=== PATIENT | female | born 1945 | race Caucasian/White ===

== ENCOUNTER → 2016-12-31 | Outpatient (CLI) | payer MEDICARE, OTHER ==
[~2016-12-31] MED LIST: [UNRECOGNIZED DRUG - REMARK]
--- NOTE | 2016-12-31 11:13 | Diagnostic Imaging Report ---
EXAMINATION: Two views of the left knee. INDICATION: Left knee pain. FINDINGS: There is no fracture, dislocation, or radiopaque foreign body. No suprapatellar effusion is seen. No significant arthritic changes are identified. IMPRESSION: Unremarkable exam. Dictated by: Dictated on workstation # [id number]
== END ==
LOC: RAD 10:17
PROVIDERS: ATTEND Family Medicine
DX: M25.562 Pain in left knee (principal)
CPT/HCPCS: 73562

== ENCOUNTER 2017-10-31 14:52 | Emergency (ER) | payer MEDICARE, OTHER ==
[~2017-10-31] VITALS: Ht 162.6 cm; Wt 63.5 kg
[2017-10-31] MEDS ORDERED: B/P MEDS (15:06)
[2017-10-31] MEDS ORDERED: KETOROLAC 60 MG/2 ML VIAL IM ONE (15:15)
[2017-10-31] MEDS ORDERED: ORPHENADRINE 60 MG/2 ML (NORFLEX) AMP IM ONE (15:15)
--- NOTE | 2017-10-31 15:15 | ED Hip Pain/Injury ---
General Chief Complaint: Back Problems Stated Complaint: LEFT REAR HIP PAIN History of Present Illness Date Seen by Provider: Oct 31, 2017 Time Seen by Provider: 15:10 Initial Comments Patient is a 72-year-old female who presented to the emergency room with complaints of pain to her left hip and buttocks area just prior to arrival. She reports sitting in a chair while repairing other chairs when the pain started. She denies any injury. She is able to ambulate without difficulty and has full range of motion. Timing/Duration: just prior to arrival Severity: mild Location: hip (L) Method of Injury: unknown Modifying Factors: Improves With Rest Associated Symptoms: denies symptoms Allergies and Home Medications Allergies Coded Allergies: codeine (Verified Allergy, Unknown, 10/31/17) Patient Home Medication List Home Medication List Reviewed: Yes Constitutional: no symptoms reported, see HPI EENTM: see HPI, no symptoms reported Respiratory: no symptoms reported, see HPI Cardiovascular: no symptoms reported, see HPI Gastrointestinal: no symptoms reported, see HPI Genitourinary: no symptoms reported, see HPI Musculoskeletal: see HPI, joint pain (Left hip) Skin: no symptoms reported, see HPI Psychiatric/Neurological: No Symptoms Reported, See HPI Past Chsqcnb-Ssefwx-Trkukx Hx Patient Social History Alcohol Use: Denies Use Recreational Drug Use: No Smoking Status: Never a Smoker Recent Foreign Travel: No Contact w/Someone Who Travel: No Immunizations Up To Date Date of Pneumonia Vaccine: Jul 14, 2012 Past Medical History Surgeries: Yes Hysterectomy Cardiac: Yes Hypertension Physical Exam Vital Signs Vital Signs - First Documented 10/31/17 14:56 Temp 98.1 Pulse 85 Resp 18 B/P (MAP) 139/79 (99) Capillary Refill : General Appearance: No Apparent Distress, WD/WN HEENT: PERRL/EOMI, Normal ENT Inspection, Pharynx Normal Neck: Full Range of Motion, Normal Inspection, Non Tender, Supple Cardiovascular: Regular Rate, Rhythm, No Edema, No Gallop, No JVD, No Murmur, Normal Peripheral Pulses Respiratory: Chest Non Tender, Lungs Clear, Normal Breath Sounds, No Accessory Muscle Use, No Respiratory Distress Gastrointestinal: Normal Bowel Sounds, No Organomegaly, No Pulsatile Mass, Non Tender, Soft Back: Normal Inspection, No CVA Tenderness, No Vertebral Tenderness Extremity: Normal Capillary Refill, Normal Inspection, Normal Range of Motion, Other (Pain to the left hip and buttocks area. ) Neurologic/Psychiatric: Alert, Oriented x3, No Motor/Sensory Deficits, Normal Mood/Affect Skin: Normal Color, Warm/Dry Lymphatic: No Adenopathy Progress/Results/Core Measures My Orders Orders - LUPE GUO APRN Ketorolac Injection (Toradol Injection) (10/31/17 15:15) Orphenadrine Injection (Norflex Injectio (10/31/17 15:15) Hip, Left, 2 Views (10/31/17 15:09) Medications Given in ED Current Medications Medications Dose Ordered Sig/Magi Route Start Time Stop Time Status Last Admin Dose Admin Ketorolac Tromethamine 60 mg ONCE ONCE IM 10/31/17 15:15 10/31/17 15:16 DC 10/31/17 15:21 60 MG Orphenadrine Citrate 60 mg ONCE ONCE IM 10/31/17 15:15 10/31/17 15:16 DC 10/31/17 15:21 60 MG Vital Signs/I&O 10/31/17 14:56 Temp 98.1 Pulse 85 Resp 18 B/P (MAP) 139/79 (99) Progress Note : Progress Note 1609: The patient reports significant improvement of pain at this time. Patient agrees with plan of discharge and understands to return back to emergency room if pain returns or for any other concerns as needed. Diagonstic Imaging: Xray Plain Films/CT/US/NM/MRI: hip Comments NAME: MARY BENNETT [facility] REC#: [id number] PT STATUS: REG ER : 1945 PHYSICIAN: LUPE GUO APRN ADMIT DATE: 10/31/17/ER Signed Date of Exam:10/31/17 HIP, LEFT, 2 VIEWS INDICATION: Pain in the left hip. TIME OF EXAM: 03:53 p.m. FINDINGS: Two views of the left hip demonstrate normal femoroacetabular alignment. The joint space is maintained. Femoral head and neck are intact. Rami are intact. No fractures are seen. IMPRESSION: No acute bony abnormality is detected. Dictated by: Dictated on workstation # [id number] Dict: 10/31/17 1538 Trans: 10/31/17 1544 [id number] Interpreted by: SONG VILLEGAS MD Electronically signed by: SONG VILLEGAS MD 10/31/17 1544 Departure Impression Primary Impression: Muscle spasm Disposition: ADMITTED INPATIENT (UA and a sedimentation rate 0. Nothing else health) Condition: Stable/Unchanged Departure-Patient Inst. Decision time for Depature: 16:14 Referrals: JUANA GOETZ DO (PCP/Family) Primary Care Physician Patient Instructions: Muscle Spasms (DC) Add. Discharge Instructions: Follow-up with Dr. Goetz within 1 week for recheck, return back to the emergency room if pain returns or worsens. All discharge instructions reviewed with patient and/or family. Voiced understanding. LUPE GUO GLASSWORKER Oct 31, 2017 15:15
--- NOTE | 2017-10-31 15:42 | Diagnostic Imaging Report ---
INDICATION: Pain in the left hip. TIME OF EXAM: 03:53 p.m. FINDINGS: Two views of the left hip demonstrate normal femoroacetabular alignment. The joint space is maintained. Femoral head and neck are intact. Rami are intact. No fractures are seen. IMPRESSION: No acute bony abnormality is detected. Dictated by: Dictated on workstation # [id number]
[2017-10-31 16:19] VITALS: BP 139/79
== END 2017-10-31 16:19 | disposition other institution (70) ==
LOC: EDUNIT# 14:52 → ER 14:54
DX: M62.838 Other muscle spasm (principal); I10 Essential (primary) hypertension; Z90.710 Acquired absence of both cervix and uterus; Z88.5 Allergy status to narcotic agent
CPT/HCPCS: 73502; 96372

== ENCOUNTER → 2019-05-05 | Outpatient (CLI) | payer MEDICARE, OTHER ==
[~2019-05-05] MED LIST changes: +B/P MEDS
--- NOTE | 2019-05-05 11:08 | Diagnostic Imaging Report ---
PROCEDURE: CT abdomen and pelvis without contrast. TECHNIQUE: Multiple contiguous axial images were obtained through the abdomen and pelvis without the use of intravenous contrast. Auto Exposure Controls were utilized during the CT exam to meet ALARA standards for radiation dose reduction. INDICATION: Hematuria. COMPARISON; No prior studies are available for comparison. FINDINGS: The lung bases are clear apart from tiny subpleural nodule in right lower lobe. No discrete liver mass is identified. The gallbladder is unremarkable. No biliary ductal dilatation is seen. The pancreas and spleen are unremarkable. No adrenal mass is identified. Tiny densities are identified in both kidneys suggestive of nonobstructing calculi. No definite ureteral calculi or hydronephrosis is identified. There is a calcific density in the midline of the bladder base measuring 7 mm x 4 mm consistent with a bladder calculus. The bladder is somewhat low in position in the pelvis suggestive of some pelvic relaxation. Aorta is calcified but non-aneurysmal. No central, retroperitoneal or mesenteric lymphadenopathy is seen. The small and large bowel loops are normal caliber. There is no free fluid or fluid collection identified. No pelvic lymphadenopathy is detected. Bony structures appear nonacute. IMPRESSION: 1. Tiny bilateral nonobstructing nephrolithiasis. In addition, there appears to be a bladder calculus. Pelvic relaxation is noted. No other significant abnormality is seen. Dictated by: Dictated on workstation # [id number]
== END ==
LOC: RAD 10:35
PROVIDERS: ATTEND Family Medicine
DX: N20.0 Calculus of kidney (principal); N81.89 Other female genital prolapse
CPT/HCPCS: 74176

== ENCOUNTER → 2022-11-01 | Outpatient (CLI) | payer MEDICARE | LOC: LAB 10:57 | PROVIDERS: ATTEND Family Medicine | DX: N39.0 Urinary tract infection, site not specified (principal) | CPT/HCPCS: 87077; 87088; 87186 ==

== ENCOUNTER 2023-04-20 14:39 | Inpatient (IN) | payer MEDICARE ==
[~2023-04-20] VITALS: Ht 162 cm; Wt 75.6 kg
--- NOTE | 2023-04-20 15:24 | ED General ---
General Chief Complaint: Fever-Adult/Adol Stated Complaint: VOMITING/SHAKY Source of Information: Patient, Family Exam Limitations: No Limitations History of Present Illness Date Seen by Provider: Apr 20, 2023 Time Seen by Provider: 15:09 Initial Comments Patient is a 77-year-old female who presents to the emergency department today with a chief complaint of weakness, feeling shaky, vomiting, incontinence of stool. Symptom onset today. She went [facility] the [facility] [place] in [place] and started feeling ill. They stopped at the [facility] in [place] and she was diagnosed with a urinary tract infection, given a prescription of Bactrim and Zofran. Continued to feel worse on her way to [place]. Presents with a fever of 104.8. She is tachycardic in the 120s. Normal blood pressure 136/70. Oxygen saturations are 94% on 2 L. She was 91% at presentation. She denies runny nose, sore throat earache. She was COVID tested prior to arrival and it was negative. She denies shortness of breath or productive cough. She was nauseated earlier vomited twice. No abdominal pain. She denies current dysuria but states that she did have a little last week. No wounds or rashes. She tells me she takes medications for hypertension. She speaks to me with her eyes closed, is very fatigued appearing. Timing/Duration: 4-6 Hours Severity: Severe Associated Systoms: Malaise, Nausea/Vomiting, Weakness Allergies and Home Medications Allergies Coded Allergies: codeine (Verified Allergy, Unknown, 10/31/17) Patient Home Medication List Home Medication List Reviewed: Yes Ascorbic Acid/Ascorbate Sodium (Vitamin C 500 mg Tablet Chew) 500 Mg Tab.chew, 500 MG PO DAILY, (Reported) Entered as Reported by: ANGIE PROCTOR on 04/21/231151 Last Action: Reviewed Aspirin (Aspirin EC) 500 Mg Tablet.dr, 500 MG PO Q8H PRN for PAIN-MILD (1-4), (Reported) Entered as Reported by: ANGIE PROCTOR on 04/21/231151 Last Action: Reviewed D-Mannose (Azo D-Mannose) 500 Mg Capsule, 500 MG PO DAILY, (Reported) Entered as Reported by: ANGIE PROCTOR on 04/21/231151 Last Action: Reviewed Losartan Potassium (Losartan Potassium) 50 Mg Tablet, 50 MG PO HS, (Reported) Entered as Reported by: ASHWINI NOLEN on 04/20/23 1739 Last Action: Reviewed Nystatin (Nystatin) 100,000 Unit/Ml Oral.susp, 2 ML PO BID, (Reported) Entered as Reported by: ANGIE PROCTOR on 04/21/23 1152 Last Action: Reviewed Discontinued Medications [B/P Meds] , (Reported) Discontinued Reason: No Longer Taking Entered as Reported by: ROS DOUGLAS on 10/31/17 1506 Last Action: Discontinued [no medicine reported] , (Reported) Discontinued Reason: No Longer Taking Entered as Reported by: CHELLE BRANNON on 05/18/12 1339 Last Action: Discontinued Review of Systems Review of Systems Constitutional: see HPI, malaise, weakness EENTM: no symptoms reported Respiratory: no symptoms reported Cardiovascular: no symptoms reported Gastrointestinal: nausea, vomiting Genitourinary: no symptoms reported Musculoskeletal: no symptoms reported Skin: no symptoms reported All Other Systems Reviewed Negative Unless Noted: Yes Past Vhedawg-Prhbtb-Widetb Hx Patient Social History Tobacco Use?: No Use of E-Cig and/or Vaping dev: No Substance use?: No Alcohol Use?: No Pt feels they are or have been: No Past Medical History Surgeries: Yes Hysterectomy Cardiac: Yes Hypertension Physical Exam-Suspected Sepsis Physical Exam Vital Signs Vital Signs - First Documented 04/20/23 14:50 Temp 40.3 Pulse 134 Resp 24 B/P (MAP) 136/70 (92) Pulse Ox 91 O2 Delivery Room Air O2 Flow Rate 2.00 Capillary Refill : Height, Weight, BMI Height: 5'4.00" Weight: 140lbs. oz. 63.045112sm; BMI Method:Stated General Appearance: No Apparent Distress, WD/WN Eyes: Right Eye Other (significant subconjuctival hemorrhage right eye); Bilateral Eye Normal Inspection, Bilateral Eye PERRL, Bilateral Eye EOMI HEENT: Other (very dry oral mucosa) Neck: Normal Inspection Respiratory: Lungs Clear, Normal Breath Sounds, No Accessory Muscle Use, No Respiratory Distress Cardiovascular: Normal Peripheral Pulses, Tachycardia (120's), Other (2+ bilateral radial pulses and DP pulses) Gastrointestinal: Non Tender, Soft, Abnormal Bowel Sounds (hypoactive) Extremity: Normal Inspection, Normal Range of Motion, No Pedal Edema Neurologic/Psychiatric: Alert, Oriented x3, No Motor/Sensory Deficits, Depressed Affect Skin: warm/dry, pallor Focused Exam Lactate Level 04/21/23 05:16: Lactic Acid Level 3.38*H 04/21/23 07:18: Lactic Acid Level 3.04*H 04/21/23 09:50: Lactic Acid Level 2.51*H Time of Focused Exam: 16:10 Lactic Acid Level Progress/Results/Core Measures Suspected Sepsis Recent Fever Within 48 Hours: Yes Infection Criteria Present: Suspected New Infection New/Unexplained Altered Menta: Yes Within 3hrs of presentation: Admin 30ml/kg IBW due to BMI>30, Admin ABX, Blood cultures prior to ABX's, Focus exam, Lactate level SIRS Temperature: Pulse: Respiratory Rate: Laboratory Tests 04/20/23 15:07: White Blood Count 5.6 Blood Pressure / Mean: 04/21/23 05:16: Lactic Acid Level 3.38*H 04/21/23 07:18: Lactic Acid Level 3.04*H 04/21/23 09:50: Lactic Acid Level 2.51*H Laboratory Tests 04/20/23 15:07: Creatinine 1.00, INR Comment 1.2, Platelet Count 213, Total Bilirubin 1.0 04/21/23 04:02: Creatinine 1.01 Results/Orders Lab Results Laboratory Tests Test 04/20/23 15:07 04/20/23 15:55 04/20/23 17:00 04/20/23 19:00 Range/Units White Blood Count 5.6 4.3-11.0 10^3/uL Red Blood Count 4.65 3.80-5.11 10^6/uL Hemoglobin 13.2 11.5-16.0 g/dL Hematocrit 41 35-52 % Mean Corpuscular Volume 88 80-99 fL Mean Corpuscular Hemoglobin 28 25-34 pg Mean Corpuscular Hemoglobin Concent 32 32-36 g/dL Red Cell Distribution Width 13.1 10.0-14.5 % Platelet Count 213 130-400 10^3/uL Mean Platelet Volume 10.1 9.0-12.2 fL Immature Granulocyte % (Auto) 3 % Neutrophils (%) (Auto) 92 H 42-75 % Lymphocytes (%) (Auto) 5 L 12-44 % Monocytes (%) (Auto) 1 0-12 % Eosinophils (%) (Auto) 0 0-10 % Basophils (%) (Auto) 0 0-10 % Neutrophils # (Auto) 5.2 1.8-7.8 10^3/uL Lymphocytes # (Auto) 0.3 L 1.0-4.0 10^3/uL Monocytes # (Auto) 0.0 0.0-1.0 10^3/uL Eosinophils # (Auto) 0.0 0.0-0.3 10^3/uL Basophils # (Auto) 0.0 0.0-0.1 10^3/uL Immature Granulocyte # (Auto) 0.2 H 0.0-0.1 10^3/uL Neutrophils % (Manual) 76 % Lymphocytes % (Manual) 5 % Monocytes % (Manual) 1 % Eosinophils % (Manual) 0 % Basophils % (Manual) 0 % Band Neutrophils 18 % Blood Morphology Comment NORMAL Prothrombin Time 15.5 H 12.2-14.7 SEC INR Comment 1.2 0.8-1.4 Activated Partial Thromboplast Time 30 24-35 SEC Sodium Level 141 135-145 MMOL/L Potassium Level 3.1 L 3.6-5.0 MMOL/L Chloride Level 106 98-107 MMOL/L Carbon Dioxide Level 18 L 21-32 MMOL/L Anion Gap 17 H 5-14 MMOL/L Blood Urea Nitrogen 13 7-18 MG/DL Creatinine 1.00 0.60-1.30 MG/DL Estimat Glomerular Filtration Rate 57 BUN/Creatinine Ratio 13 Glucose Level 161 H 70-105 MG/DL Lactic Acid Level 5.98 *H 3.69 *H 5.29 *H 0.50-2.00 MMOL/L Calcium Level 9.0 8.5-10.1 MG/DL Corrected Calcium 9.2 8.5-10.1 MG/DL Total Bilirubin 1.0 0.1-1.0 MG/DL Aspartate Amino Transf (AST/SGOT) 29 5-34 U/L Alanine Aminotransferase (ALT/SGPT) 23 0-55 U/L Alkaline Phosphatase 54 40-136 U/L Total Protein 6.7 6.4-8.2 GM/DL Albumin 3.8 3.2-4.5 GM/DL Urine Color YELLOW Urine Clarity CLEAR Urine pH 5.0 5-9 Urine Specific [place] 1.015 L 1.016-1.022 Urine Protein 1+ H NEGATIVE Urine Glucose (UA) NEGATIVE NEGATIVE Urine Ketones NEGATIVE NEGATIVE Urine Nitrite NEGATIVE NEGATIVE Urine Bilirubin NEGATIVE NEGATIVE Urine Urobilinogen 0.2 < = 1.0 MG/DL Urine Leukocyte Esterase 1+ H NEGATIVE Urine RBC (Auto) 3+ H NEGATIVE Urine RBC 5-10 H /HPF Urine WBC 10-25 H /HPF Urine Squamous Epithelial Cells NONE /HPF Urine Crystals NONE /LPF Urine Bacteria FEW H /HPF Urine Casts NONE /LPF Urine Mucus NEGATIVE /LPF Urine Culture Indicated CULTURE PENDING Test 04/20/23 21:08 04/20/23 22:58 04/21/23 01:10 04/21/23 04:02 Range/Units Lactic Acid Level 3.37 *H 3.08 *H 2.68 *H 0.50-2.00 MMOL/L Troponin I 8.663 *H 6.482 *H <0.028 NG/ML Sodium Level 142 135-145 MMOL/L Potassium Level 2.8 L 3.6-5.0 MMOL/L Chloride Level 112 H 98-107 MMOL/L Carbon Dioxide Level 15 L 21-32 MMOL/L Anion Gap 15 H 5-14 MMOL/L Blood Urea Nitrogen 13 7-18 MG/DL Creatinine 1.01 0.60-1.30 MG/DL Estimat Glomerular Filtration Rate 57 BUN/Creatinine Ratio 13 Glucose Level 195 H 70-105 MG/DL Calcium Level 7.6 L 8.5-10.1 MG/DL Test 04/21/23 05:16 04/21/23 05:38 04/21/23 07:18 04/21/23 09:50 Range/Units Lactic Acid Level 3.38 *H 3.04 *H 2.51 *H 0.50-2.00 MMOL/L Magnesium Level 1.4 L 1.6-2.4 MG/DL Test 04/21/23 16:56 04/21/23 21:02 Range/Units Glucometer 229 H 164 H 70-110 MG/DL Micro Results Microbiology 04/21/23 C. difficile GDH Antigen & Toxins - Final, Resulted 04/21/23 Stool Culture, Resulted Pending 04/20/23 MRSA Screen - Final, Complete 04/20/23 Blood Culture - Preliminary, Resulted 04/20/23 Urine Culture - Preliminary, Resulted Probable Klebsiella/Enterobact 04/20/23 Blood Culture - Preliminary, Resulted Gram Negative Michel My Orders Orders - CHELLE BROWN MD Cbc And Automated Diff (04/20/23 15:16) Comprehensive Metabolic Panel (04/20/23 15:16) Blood Culture (04/20/23 15:16) Sputum Culture (04/20/23 15:16) Urinalysis (04/20/23 15:16) Urine Culture (04/20/23 15:16) Protime With Inr (04/20/23 15:16) Partial Thromboplastin Time (04/20/23 15:16) Chest 1 View, Ap/Pa Only (04/20/23 15:16) Ed Iv/Invasive Line Start (04/20/23 15:16) Ed Iv/Invasive Line Start (04/20/23 15:16) Vital Signs Adult Sepsis Patie Q15M (04/20/23 15:16) O2 (04/20/23 15:16) Remove Rings In Anticipation O (04/20/23 15:16) Lactic Acid Analyzer (04/20/23 15:16) Ekg Tracing (04/20/23 15:16) Ns Iv 1000 Ml (Ns Iv 1000 Ml) (04/20/23 15:30) Acetaminophen Tablet (Acetaminophen Ta (04/20/23 15:30) Ekg Tracing (04/20/23 15:17) Ondansetron Injection (Ondansetron Inj (04/20/23 15:30) Manual Differential (04/20/23 15:07) Ns Iv 1000 Ml (Ns Iv 1000 Ml) (04/20/23 15:49) Ns (Ivpb) 250 Ml (Sodium Chloride 0.9% 2 (04/20/23 15:49) Piperacillin/Tazobactam (Piperacillin/Ta (04/20/23 16:30) Ekg Tracing (04/20/23 16:35) Medications Given in ED Vital Signs/I&O 04/21/23 04/21/23 04/21/23 04/21/23 18:00 19:00 19:00 19:15 Pulse 98 105 105 105 Resp 8 37 B/P (MAP) 127/84 (98) 123/93 (107) 137/82 (100) Pulse Ox 96 95 96 O2 Delivery Nasal Cannula Nasal Cannula Nasal Cannula O2 Flow Rate 4.00 4.00 4.00 04/21/23 04/21/23 04/21/23 04/21/23 19:30 19:43 19:45 20:00 Temp 36.4 Pulse 103 101 105 Resp B/P (MAP) 114/81 (93) 116/82 (91) 110/80 (92) Pulse Ox 96 97 95 O2 Delivery Nasal Cannula Nasal Cannula Nasal Cannula O2 Flow Rate 4.00 4.00 4.00 04/21/23 04/21/23 04/21/23 04/21/23 20:00 20:15 20:30 20:45 Pulse 102 106 105 Resp 22 B/P (MAP) 120/76 (89) 127/77 (94) 136/60 (78) Pulse Ox 94 96 94 95 O2 Delivery Nasal Cannula Nasal Cannula Nasal Cannula Nasal Cannula O2 Flow Rate 4.00 4.00 4.00 4.00 04/21/23 04/21/23 04/21/23 04/21/23 21:00 21:15 21:30 21:45 Pulse 105 98 101 98 Resp 22 16 15 B/P (MAP) 106/89 (92) 113/72 (91) 114/73 (88) 107/77 (93) Pulse Ox 96 95 98 94 O2 Delivery Nasal Cannula Nasal Cannula Nasal Cannula Nasal Cannula O2 Flow Rate 4.00 4.00 4.00 4.00 04/21/23 04/21/23 04/21/23 04/21/23 22:00 22:15 22:30 22:45 Pulse 97 103 98 102 Resp 05 07 B/P (MAP) 108/81 (87) 116/59 (70) 116/66 (88) 104/79 (88) Pulse Ox 94 94 O2 Delivery Nasal Cannula Nasal Cannula Nasal Cannula Nasal Cannula O2 Flow Rate 4.00 4.00 4.00 4.00 04/21/23 04/21/23 04/21/23 04/21/23 23:00 23:15 23:30 23:45 Pulse 98 93 98 101 Resp 25 20 28 11 B/P (MAP) 98/74 (89) 113/72 (96) 86/76 (81) 117/77 (85) Pulse Ox 97 97 95 94 O2 Delivery Nasal Cannula Nasal Cannula Nasal Cannula Nasal Cannula O2 Flow Rate 4.00 4.00 4.00 4.00 04/22/23 04/22/23 04/22/23 04/22/23 00:00 00:00 01:00 01:00 Pulse 98 103 103 Resp 24 28 B/P (MAP) 118/76 (91) 136/81 (99) Pulse Ox 96 97 95 O2 Delivery Nasal Cannula Nasal Cannula Nasal Cannula O2 Flow Rate 4.00 4.00 4.00 04/22/23 04/22/23 04/22/23 04/22/23 02:00 03:00 03:52 04:08 Temp 36.0 Pulse 102 109 Resp 25 B/P (MAP) 119/74 (89) 132/81 (98) Pulse Ox 95 93 93 O2 Delivery Nasal Cannula Nasal Cannula Nasal Cannula O2 Flow Rate 4.00 4.00 4.00 Capillary Refill : Progress Note : Time: 16:07 Progress Note Patient seen and evaluated by me. Evaluation today includes physical exam, "septic work-up" to include CBC, Chem-12, coag profile, blood cultures and uric acid, urinalysis, urine culture, single view chest x-ray. Pertinent physical exam findings well-developed well-nourished female in mild distress due to nausea and fatigue. She is significantly febrile with tachycardia heart rate 100, blood pressure is 127/84. She was hypoxic on room air at 88%. Satting 98% on 4 L. Heart is regular, lungs are clear. Abdomen is soft and nontender. She has no focal neurologic deficits. She is quite pale and her oral mucosa is very dry. Differential diagnosis includes sepsis, urinary tract infection, pneumonia, gastroenteritis Labs independently reviewed and interpreted by me. Her CBC shows a total white blood cell count of 5.6 with normal hemoglobin and hematocrit and platelets. She has 92% segmented neutrophils. Her Chem-12 shows low potassium at 3.1, low CO2 of 18. Normal renal function. Blood glucose slightly elevated at 161. Coag profile is normal. Lactic acid is significantly elevated at 5.98. Urinalysis shows evidence of infection with 1+ leukocyte Estrace, 3+ blood, 10- 25 white blood cells and few bacteria. Single view chest x-ray is unremarkable for any acute pathology. Patient is treated in the emergency department with a 30 mill per kilogram IV fluid bolus normal saline. She is given a gram of Tylenol for her temperature. She is given 4 mg of Zofran for her nausea. Patient continued to deny pain and after fluid bolus was reevaluated and feeling much better. She had a little color in her cheeks and was much more conversant. Discussed the case with Dr. Adhikari on for the hospitalist service. Will admit the patient to the ICU with severe sepsis. IV antibiotics, Zosyn 4.5 g ordered. Cultures pending. Case also discussed with eICU. ECG Initial ECG Impression Date: Apr 20, 2023 Initial ECG Impression Time: 15:18 Initial ECG Rate: 127 Initial ECG Rhythm: S.Tach Initial ECG Intervals VT 127 QRS 139 QTc [address] depression inferiorly Diagnostic Imaging Diagonstic Imaging: Xray Plain Films/CT/US/NM/MRI: chest Comments [facility] [place] NAME: MARY BENNETT [facility] REC#: [id number] PT STATUS: REG ER : 1945 PHYSICIAN: CHELLE BROWN MD ADMIT DATE: 04/20/23/ER Signed Date of Exam:04/20/23 CHEST 1 VIEW, AP/PA ONLY EXAMINATION: Chest radiograph, portable AP view. DATE: 04/20/2023 3:42 PM. INDICATION: 77-year-old female, shaking, weakness, and dizziness. COMPARISON: None. FINDINGS: Heart size and mediastinal contours are unremarkable. Lung volumes are low with associated central bronchovascular crowding. There is no identified pneumothorax. There is no large pleural effusion. There is no identified focal airspace consolidation. IMPRESSION: Low lung volumes without identified acute cardiopulmonary abnormality. Dictated by: Dictated on workstation # [id number] Dict: 04/20/23 1544 Trans: 04/20/23 1558 [id number] Interpreted by: KD PAN MD Electronically signed by: KD PAN MD 04/20/23 1558 Departure Communication (Admissions) Time/Spoke to Admitting Phy: 16:[address] Adhikari - admit ICU; Impression Primary Impression: Severe sepsis Disposition: ADMITTED INPATIENT Condition: Critical Admissions Decision to Admit Reason: Admit from ER (General) Decision to Admit/Date: Apr 20, 2023 Time/Decision to Admit Time: 16:08 Departure-Patient Inst. Referrals: JUANA GOETZ DO (PCP/Family) Primary Care Physician Copy Copies To 1: JUANA GOETZ KATHRYN M MD Apr 20, 2023 15:24
[2023-04-20] MEDS ORDERED: NS IV 1000 ML 1,000 ML IV SCH (15:30)
[2023-04-20] MEDS ORDERED: ACETAMINOPHEN 500 MG TABLET PO ONE (15:30)
[2023-04-20] MEDS ORDERED: ONDANSETRON INJECTION 4 MG/2 ML (SDV) IVP ONE (15:30)
[2023-04-20 15:33] LABS: INR 1.2 (0.8-1.4); PROTHROMBIN TIME PATIENT 15.5 SEC (12.2-14.7)
[2023-04-20 15:35] LABS: ALBUMIN 3.8 GM/DL (3.2-4.5); POTASSIUM 3.1 MMOL/L (3.6-5.0)
[2023-04-20 15:37] LABS: BASOPHILS % (AUTO) 0 % (0-10); EOSINOPHILS % (AUTO) 0 % (0-10); HEMATOCRIT 41 % (35-52); HEMOGLOBIN 13.2 g/dL (11.5-16.0); LYMPHOCYTES # (AUTO) 0.3 10^3/uL (1.0-4.0); LYMPHOCYTES % (AUTO) 5 % (12-44); MEAN CORPUSCULAR HEMOGLOBIN 28 pg (25-34); MEAN CORPUSCULAR HGB CONC 32 g/dL (32-36); MEAN CORPUSCULAR VOLUME 88 fL (80-99); MEAN PLATELET VOLUME 10.1 fL (9.0-12.2); MONOCYTES % (AUTO) 1 % (0-12); NEUTROPHILS # (AUTO) 5.2 10^3/uL (1.8-7.8); NEUTROPHILS % (AUTO) 92 % (42-75); PLATELET COUNT 213 10^3/uL (130-400); TOTAL PROTEIN 6.7 GM/DL (6.4-8.2); WHITE BLOOD COUNT 5.6 10^3/uL (4.3-11.0)
[2023-04-20] MEDS ORDERED: NS (IVPB) 250 ML 250 ML IV STA (15:49)
[2023-04-20] MEDS ORDERED: NS IV 1000 ML 1,000 ML IV STA (15:49)
--- NOTE | 2023-04-20 15:58 | Diagnostic Imaging Report ---
EXAMINATION: Chest radiograph, portable AP view. DATE: 04/20/2023 3:42 PM. INDICATION: 77-year-old female, shaking, weakness, and dizziness. COMPARISON: None. FINDINGS: Heart size and mediastinal contours are unremarkable. Lung volumes are low with associated central bronchovascular crowding. There is no identified pneumothorax. There is no large pleural effusion. There is no identified focal airspace consolidation. IMPRESSION: Low lung volumes without identified acute cardiopulmonary abnormality. Dictated by: Dictated on workstation # [id number]
[2023-04-20 16:08] LABS: BAND NEUTROPHILS 18 %; BASOPHILS % (MANUAL) 0 %; EOSINOPHILS % (MANUAL) 0 %; LYMPHOCYTES % (MANUAL) 5 %; MONOCYTES % (MANUAL) 1 %; NEUTROPHILS % (MANUAL) 76 %; RBC MORPH NORMAL
[2023-04-20 16:13] LABS: BILIRUBIN,URINE NEGATIVE (NEGATIVE); CLARITY,URINE CLEAR; COLOR,URINE YELLOW; GLUCOSE, URINE (UA) NEGATIVE (NEGATIVE); KETONES,URINE NEGATIVE (NEGATIVE); LEUKOCYTE ESTERASE ,URINE 1+ (NEGATIVE); NITRITE,URINE NEGATIVE (NEGATIVE); PROTEIN,URINE 1+ (NEGATIVE)
[2023-04-20 16:14] LABS: BACTERIA,URINE FEW /HPF
[2023-04-20] MEDS ORDERED: PIPERACILLIN/Tazobactam 4.5 GM in NS (IVPB) 100 ML 100 ML IV ONE (16:30)
--- NOTE | 2023-04-20 17:34 | Tele-ICU Consult ---
History of Present Illness History of Present Illness Date Seen by Provider: Apr 20, 2023 Time Seen by Provider: 17:28 History of Present Illness eICU Critical Care Consult 77yo F came to ED with cc of weakness, vomiting, diarrhea, In ED temp 104.8, now 98 , HR 120's, BP 75/52, now 67/46 Recent UTI-taking Bactrim, Zofran, Covid serology negative Lab in ED LA 5.98, WBC 5.6 with left shift, Hb 12.2, , potassium 3.1, HCO3 17, AG 13, LFT's normal, UA shows 10-25 WBC, started on IV Zosyn, Recevied 2.2 l IVF Has no flank pain, no MEYERS, chest pain, SOB, no abd pain Has 18G IV in hand CXR shows low lung volumes but no acute process PMH HTN Allergies and Home Medications Allergies Coded Allergies: codeine (Verified Allergy, Unknown, 10/31/17) Past Medical/Social/Family Hx Patient Social History Tobacco Use?: No Use of E-Cig and/or Vaping dev: No Substance use?: No Alcohol Use?: No Pt stated abuse/neglect: No Immunizations Up To Date Date of Pneumonia Vaccine: Jul 14, 2012 Current Status Advance Directives: No Communicates: Verbally Primary Language: Malian Preferred Spoken Language: Malian Review of Systems Constitutional: see HPI EENTM: see HPI Respiratory: see HPI Cardiovascular: see HPI Gastrointestinal: see HPI Genitourinary: see HPI Musculoskeletal: see HPI Skin: see HPI Psychiatric/Neurological: See HPI Focused Exam Lactate Level 04/20/23 15:07: Lactic Acid Level 5.98*H 04/20/23 17:00: Height, Weight, BMI Height: 5'4.00" Weight: 140lbs. oz. 63.027163uq; 28.00 BMI Method:Stated Time of Focused Exam: 16:10 Lactic Acid Level Laboratory Tests Test 04/20/23 15:07 04/20/23 17:00 Lactic Acid Level 5.98 MMOL/L (0.50-2.00) *H Exam Exam Patient acknowledged, consented, and participated in this virtual visit which wa s conducted using real time audio/video Vital Signs Date Time Temp Pulse Resp B/P (MAP) Pulse Ox O2 Delivery O2 Flow Rate FiO2 10/8/23 14:50 40.3 134 24 136/70 (92) 97 Room Air 2.00 04/20/23 14:50 91 Room Air 2.00 Height & Weight Height: 5'4.00" Weight: 140lbs. oz. 63.121202ic; 28.00 BMI Method:Stated General Appearance: No Apparent Distress, WD/WN HEENT: Other (very dry oral mucosa) Neck: Normal Inspection Respiratory: Lungs Clear, Normal Breath Sounds, No Accessory Muscle Use, No Respiratory Distress Cardiovascular: Regular Rate, Rhythm, Normal Peripheral Pulses, Tachycardia (120's), Other (2+ bilateral radial pulses and DP pulses) Capillary Refill: Less Than 3 Seconds Gastrointestinal: normal bowel sounds, non tender, other (no flank pain, no pain in RUQ or over bladder) Extremity: Normal Inspection, Normal Range of Motion, No Pedal Edema Neurologic/Psychiatric: Alert, Oriented x3, No Motor/Sensory Deficits, Depressed Affect Results Lab Laboratory Tests 04/20/23 15:07 Assessment/Plan Assessment/Plan Sepsis source most likely urine with WBC 10-25 in urine, perhaps pyelonephritis, though no flank pain BP too low to send for CT Abd/pelvis, will give bolus of LR and order CT abd/pelvis Continue for now on IV Zosyn Critical Care: Critically Ill Patient Time spent with patient (mins): 35 KEYA ANN MD Apr 20, 2023 17:34
[2023-04-20] MEDS ORDERED: LOSA50TA63 PO (17:39)
[2023-04-20] MEDS ORDERED: LACTATED RINGERS 1,000 ML 1,000 ML IV ONE (17:58)
[2023-04-20] MEDS ORDERED: LACTATED RINGERS 1,000 ML 1,000 ML IV SCH (18:00)
--- NOTE | 2023-04-20 18:35 | Tele-ICU Progress Note ---
Subjective Date Seen by a Provider: Apr 20, 2023 Time Seen by a Provider: 18:33 Subjective/Events-last exam BP still low after 1000 IV bolus, has peripheral line, will start IV levo up to 5 and if have to go higher will need either PICC or central line Sepsis Event Evaluation Height, Weight, BMI Height: 5'4.00" Weight: 140lbs. oz. 63.505557re; 28.80 BMI Method:Stated Focused Exam Lactate Level 04/20/23 15:07: Lactic Acid Level 5.98*H 04/20/23 17:00: Lactic Acid Level 3.69*H Time of Focused Exam: 16:10 Lactic Acid Level Laboratory Tests Test 04/20/23 15:07 04/20/23 17:00 Lactic Acid Level 5.98 MMOL/L (0.50-2.00) *H 3.69 MMOL/L (0.50-2.00) *H Exam Exam Patient acknowledged, consented, and participated in this virtual visit which was conducted using real time audio/video Vital Signs Date Time Temp Pulse Resp B/P (MAP) Pulse Ox O2 Delivery O2 Flow Rate FiO2 04/20/23 18:00 106 19 75/52 (60) 94 Room Air 04/20/23 18:00 106 04/20/23 14:50 40.3 134 24 136/70 (92) 97 Room Air 2.00 04/20/23 14:50 91 Room Air 2.00 Height & Weight Height: 5'4.00" Weight: 140lbs. oz. 63.762162hf; 28.80 BMI Method:Stated General Appearance: No Apparent Distress, WD/WN HEENT: Other (very dry oral mucosa) Neck: Normal Inspection Respiratory: Lungs Clear, Normal Breath Sounds, No Accessory Muscle Use, No Respiratory Distress Cardiovascular: Regular Rate, Rhythm, Normal Peripheral Pulses, Tachycardia (120's), Other (2+ bilateral radial pulses and DP pulses) Capillary Refill: Less Than 3 Seconds Gastrointestinal: normal bowel sounds, non tender, other (no flank pain, no pain in RUQ or over bladder) Extremity: Normal Inspection, Normal Range of Motion, No Pedal Edema Neurologic/Psychiatric: Alert, Oriented x3, No Motor/Sensory Deficits, Depressed Affect Results Lab Laboratory Tests 04/20/23 15:07 Assessment/Plan Assessment/Plan BP still low after 1000 IV bolus, has good peripheral line, will start IV levo up to 5 if BP does not improve and if have to go higher will need either PICC or central line Critical Care: Critically Ill Patient KEYA ANN MD Apr 20, 2023 18:35
[2023-04-20] MEDS ORDERED: NOREPINEPHRINE 8 MG/250 ML 250 ML IV ONE (18:42)
[2023-04-20] MEDS: NOREPINEPHRINE 8 MG/250 ML 250 ML IV SCH (18:47)
[2023-04-20 19:01] VITALS: BP 62/40
[2023-04-20] MEDS ORDERED: RT-Ipratropium/Albuterol NEB 3 ML VIAL INH PRN (19:30)
[2023-04-20] MEDS: VASOPRESSIN INJECTION 20 UNIT in NS (IVPB) 100 ML 100 ML IV SCH (20:30)
[2023-04-20] MEDS ORDERED: ACETAMINOPHEN 650 MG SUPPOSITORY PR PRN (20:30)
[2023-04-20] MEDS ORDERED: ACETAMINOPHEN 325 MG TABLET PO PRN (20:30)
[2023-04-20] MEDS ORDERED: ONDANSETRON INJECTION 4 MG/2 ML (SDV) IV PRN (20:30)
[2023-04-20] MEDS ORDERED: EPINEPHrine 1 MG INJECTION 4 MG in NS (IVPB) 250 ML 248 ML IV SCH (20:30)
[2023-04-20] MEDS: NS IV 1000 ML 1,000 ML IV SCH (20:54)
[2023-04-20] MEDS ORDERED: NS (IVPB) 250 ML 250 ML IV ONE (21:15)
--- NOTE | 2023-04-20 21:24 | Tele-ICU Progress Note ---
Progress Note Bedside nurse stated pt with chest pain and stable EKG. I ordered a troponin level. Hypotension, I ordered 250 cc saline bolus Focused Exam Sepsis Stage: Septic Shock Lactate Level 04/20/23 17:00: Lactic Acid Level 3.69*H 04/20/23 19:00: Lactic Acid Level 5.29*H 04/20/23 21:08: Height, Weight, BMI Height: 5'4.00" Weight: 140lbs. oz. 63.503965mc; 28.80 BMI Method:Stated Time of Focused Exam: 16:10 Lactic Acid Level Laboratory Tests Test 04/20/23 19:00 04/20/23 21:08 Lactic Acid Level 5.29 MMOL/L (0.50-2.00) *H Vital Signs Vitals Signs Source: Tympanic, Heart Rate: 105, Respiratory Rate: 20, BP: 91/60, Pulse Oximetry: 96, Weight: 75.6 Vitals - Labs Vital Signs - I&O Vital Signs Date Time Temp Pulse Resp B/P (MAP) Pulse Ox O2 Delivery O2 Flow Rate FiO2 04/20/23 19:40 105 91/60 04/20/23 19:01 86 95 04/20/23 18:47 84 62/40 04/20/23 18:00 106 19 75/52 (60) 94 Room Air 04/20/23 18:00 96 Nasal Cannula 2.00 04/20/23 18:00 106 04/20/23 17:18 38.5 99 20 122/78 96 Room Air 04/20/23 14:50 40.3 134 24 136/70 (92) 97 Room Air 2.00 04/20/23 14:50 91 Room Air 2.00 Labs Laboratory Tests 04/20/23 15:07: White Blood Count 5.6, Red Blood Count 4.65, Hemoglobin 13.2, Hematocrit 41, Mean Corpuscular Volume 88, Mean Corpuscular Hemoglobin 28, Mean Corpuscular Hemoglobin Concent 32, Red Cell Distribution Width 13.1, Platelet Count 213, Mean Platelet Volume 10.1, Immature Granulocyte % (Auto) 3, Neutrophils (%) (Auto) 92H, Lymphocytes (%) (Auto) 5L, Monocytes (%) (Auto) 1, Eosinophils (%) (Auto) 0, Basophils (%) (Auto) 0, Neutrophils # (Auto) 5.2, Lymphocytes # (Auto) 0.3L, Monocytes # (Auto) 0.0, Eosinophils # (Auto) 0.0, Basophils # (Auto) 0.0, Immature Granulocyte # (Auto) 0.2H, Neutrophils % (Manual) 76, Lymphocytes % (Manual) 5, Monocytes % (Manual) 1, Eosinophils % (Manual) 0, Basophils % (Manual) 0, Band Neutrophils 18, Blood Morphology Comment NORMAL, Prothrombin Time 15.5H, INR Comment 1.2, Activated Partial Thromboplast Time 30, Sodium Level 141, Potassium Level 3.1L, Chloride Level 106, Carbon Dioxide Level 18L, Anion Gap 17H, Blood Urea Nitrogen 13, Creatinine 1.00, Estimat Glomerular Filtration Rate 57, BUN/Creatinine Ratio 13, Glucose Level 161H, Lactic Acid Level 5.98*H, Calcium Level 9.0, Corrected Calcium 9.2, Total Bilirubin 1.0, Aspartate Amino Transf (AST/SGOT) 29, Alanine Aminotransferase (ALT/SGPT) 23, Alkaline Phosphatase 54, Total Protein 6.7, Albumin 3.8 04/20/23 15:55: Urine Color YELLOW, Urine Clarity CLEAR, Urine pH 5.0, Urine Specific [place] 1.015L, Urine Protein 1+H, Urine Glucose (UA) NEGATIVE, Urine Ketones NEGATIVE, Urine Nitrite NEGATIVE, Urine Bilirubin NEGATIVE, Urine Urobilinogen 0.2, Urine Leukocyte Esterase 1+H, Urine RBC (Auto) 3+H, Urine RBC 5-10H, Urine WBC 10-25H, Urine Squamous Epithelial Cells NONE, Urine Crystals NONE, Urine Bacteria FEWH, Urine Casts NONE, Urine Mucus NEGATIVE, Urine Culture Indicated CULTURE PENDING 04/20/23 17:00: Lactic Acid Level 3.69*H 04/20/23 19:00: Lactic Acid Level 5.29*H 04/20/23 21:08: KARMA REYES MD Apr 20, 2023 21:24
[2023-04-20] MEDS ORDERED: PIPERACILLIN/Tazobactam 4.5 GM in NS (IVPB) 100 ML 100 ML IV SCH (23:00)
[2023-04-20] MEDS: ASPIRIN enteric coated 81MG TABLET PO SCH (23:31)
[2023-04-20] MEDS: CALCIUM CARBONATE 500 MG CHEW TABLET PO PRN (23:31)
[2023-04-20] MEDS: ENOXAPARIN 80 MG/0.8 ML SYRINGE SC SCH (23:32)
[2023-04-21] MEDS: NS IV 1000 ML 1,000 ML IV SCH ×4 (04:27→20:47)
[2023-04-21 04:37] LABS: CALCIUM 7.6 MG/DL (8.5-10.1); CREATININE SERUM 1.01 MG/DL (0.60-1.30); POTASSIUM 2.8 MMOL/L (3.6-5.0)
[2023-04-21] MEDS ORDERED: NS IV 500 ML 500 ML IV PRN (07:00)
[2023-04-21] MEDS: VASOPRESSIN INJECTION 20 UNIT in NS (IVPB) 100 ML 100 ML IV SCH ×2 (07:40→18:45)
[2023-04-21] MEDS: NOREPINEPHRINE 8 MG/250 ML 250 ML IV SCH (07:53)
[2023-04-21] MEDS: ASPIRIN enteric coated 81MG TABLET PO SCH (08:36)
[2023-04-21] MEDS: MAGNESIUM 1 GM/100 ML IVPB 100 ML IV SCH ×6 (08:37→16:03)
[2023-04-21] MEDS: POTASSIUM CL 10MEQ/50ML IVPB 50 ML IV SCH ×8 (08:37→18:07)
[2023-04-21] MEDS: cefTRIAXone IV/IM 1,000 MG in NS (IVPB) 50 ML 50 ML IV SCH (08:46)
--- NOTE | 2023-04-21 10:03 | Consultation-Cardiology ---
HPI-Cardiology Cardiology Consultation: Date of Consultation 04/21/23 Time Seen by a Provider: 09:45 Date of Admission 04-20-23 Attending Physician Dion Be DO Admitting Physician Admitting Physician: Bunny Adhikari MD Attending Physician: Keshia Meehan MD Consulting Physician Teresa Mcdowell MD HPI: Chief Complaint: NSTEMI Ms. Bennett is a 77 yr old female admitted to ICU 6 from the ED. She reports she was at a rodeo with her and on the way home from [place] she started to have chills and right lower quad pain. She reports she started to have chills so they stopped at [facility] in [facility]. She reports she was Rx abx and a pain pill which they did not sweet pickle maker. She reports on the way back to [place] she continued to feel worse and was trembling. She reports she then went to the ED here and was found to have a temp of 104 degrees. Her BP was noted to be low requiring pressor support. She reports she developed chest heaviness over night; describing it as a feeling that she could not get a deep breath in. She denies any chest pain. No c/o palpitations. No LE swelling. She reports her SOB is better at this time. She reports this morning she sat up in bed and felt dizzy and weak which improved once she was laid back. She reports she generally feels unwell. Review of Systems-Cardiology Review of Systems Constitutional: As described under HPI Eyes: No vision change Ears/Nose/Throat: No epistaxis, No recent hearing loss Respiratory: As described under HPI Cardiovascular: As described under HPI Gastrointestinal: No constipation, No diarrhea, No nausea; vomiting Genitourinary: No dysuria, No hematuria Musculoskeletal: no symptoms reported Skin: No rash on exposed areas, No ulcerations on exposed areas Psychiatric/Neurological: No anxiety, No depression, No seizure, No focal weakness, No syncope Hematologic: No bleeding abnormalities All Other Systems Reviewed Negative Unless Noted: Yes BPI-Mxmrat-Ephegh Hx Patient Social History Alcohol Use?: No Pt feels they are or have been: No Immunizations Up To Date Date of Pneumonia Vaccine: Jul 14, 2012 Past Medical History PMH As described under Assessment. Family Medical History Family Medical History: No reported family h/o CAD Allergies and Home Medications Allergies Coded Allergies: codeine (Verified Allergy, Unknown, 10/31/17) Patient Home Medication List Ascorbic Acid/Ascorbate Sodium (Vitamin C 500 mg Tablet Chew) 500 Mg Tab.chew, 500 MG PO DAILY, (Reported) Entered as Reported by: ANGIE PROCTOR on 04/21/231151 Last Action: Reviewed Aspirin (Aspirin EC) 500 Mg Tablet.dr, 500 MG PO Q8H PRN for PAIN-MILD (1-4), (Reported) Entered as Reported by: ANGIE PROCTOR on 04/21/231151 Last Action: Reviewed D-Mannose (Azo D-Mannose) 500 Mg Capsule, 500 MG PO DAILY, (Reported) Entered as Reported by: ANGIE PROCTOR on 04/21/231151 Last Action: Reviewed Losartan Potassium (Losartan Potassium) 50 Mg Tablet, 50 MG PO HS, (Reported) Entered as Reported by: ASHWINI NOLEN on 04/20/23 1739 Last Action: Reviewed Nystatin (Nystatin) 100,000 Unit/Ml Oral.susp, 2 ML PO BID, (Reported) Entered as Reported by: ANGIE PROCTOR on 04/21/231151 Last Action: Reviewed Discontinued Medications [B/P Meds] , (Reported) Discontinued Reason: No Longer Taking Entered as Reported by: ROS DOUGLAS on 10/31/17 1506 Last Action: Discontinued [no medicine reported] , (Reported) Discontinued Reason: No Longer Taking Entered as Reported by: CHELLE BRANNON on 05/18/12 1339 Last Action: Discontinued Physical Exam-Cardiology Physical Exam Vital Signs/I&O 04/21/23 04/21/23 04/21/23 04/21/23 22:45 23:00 23:15 23:30 Pulse 102 98 93 98 Resp 25 20 28 B/P (MAP) 104/79 (88) 98/74 (89) 113/72 (96) 86/76 (81) Pulse Ox 97 97 95 O2 Delivery Nasal Cannula Nasal Cannula Nasal Cannula Nasal Cannula O2 Flow Rate 4.00 4.00 4.00 4.00 04/21/23 04/22/23 04/22/23 04/22/23 23:45 00:00 00:00 01:00 Pulse 101 98 103 Resp 11 24 B/P (MAP) 117/77 (85) 118/76 (91) Pulse Ox 94 96 97 O2 Delivery Nasal Cannula Nasal Cannula Nasal Cannula O2 Flow Rate 4.00 4.00 4.00 04/22/23 04/22/23 04/22/23 04/22/23 01:00 02:00 03:00 03:52 Temp 36.0 Pulse 103 102 109 Resp 28 25 B/P (MAP) 136/81 (99) 119/74 (89) 132/81 (98) Pulse Ox 95 95 93 O2 Delivery Nasal Cannula Nasal Cannula Nasal Cannula O2 Flow Rate 4.00 4.00 4.00 04/22/23 04/22/23 04/22/23 04/22/23 04:00 04:08 05:00 06:00 Pulse 96 98 100 Resp 29 31 B/P (MAP) 121/74 (90) 118/73 (88) 124/70 (88) Pulse Ox 96 93 98 96 O2 Delivery Nasal Cannula Nasal Cannula Nasal Cannula Nasal Cannula O2 Flow Rate 4.00 4.00 4.00 4.00 04/22/23 04/22/23 04/22/23 04/22/23 07:00 07:15 08:00 09:00 Pulse 95 98 103 101 Resp 27 B/P (MAP) 123/67 (85) 136/56 (82) 125/82 (96) Pulse Ox 98 98 94 O2 Delivery Nasal Cannula Nasal Cannula Nasal Cannula O2 Flow Rate 4.00 4.00 4.00 04/22/23 04/22/23 09:24 10:00 Pulse 91 90 Resp 18 B/P (MAP) 124/83 113/71 (85) Pulse Ox 95 O2 Delivery Nasal Cannula O2 Flow Rate 4.00 04/22/23 00:00 Intake Total 2550 ml Output Total 750 ml Balance 1800 ml Capillary Refill : Less Than 3 Seconds Constitutional: AAO x 3, well-developed, well-nourished HEENT: PERRL, hearing is well preserved, oral hygience is good Neck: No carotid bruit; carotid pulses are 2 + bilaterally Respiratory: No accessory muscle use, No respiratory distress; chest expansion is symmetric, chest is bilaterally symmetric, lungs clear to auscultation Cardiovascular: No JVD; tachycardia, S1 and S2 Gastrointestinal: No tender; soft, round; No guarding; audible bowel sounds Extremities: no lower extremity edema bilateral Neurologic/Psychiatric: other (moves all extremities) Skin: warm/dry, pallor; No rash on exposed areas, No ulcerations on exposed areas Data Review Labs Laboratory Tests 04/21/23 15:07: 04/21/23 16:56: Glucometer 229H 04/21/23 21:02: Glucometer 164H 04/22/23 04:45: White Blood Count 39.7*H, Red Blood Count 3.97, Hemoglobin 11.7, Hematocrit 35, Mean Corpuscular Volume 88, Mean Corpuscular Hemoglobin 30, Mean Corpuscular Hemoglobin Concent 33, Red Cell Distribution Width 13.8, Platelet Count 174, Mean Platelet Volume 11.3, Immature Granulocyte % (Auto) 11, Neutrophils (%) (Auto) 71, Lymphocytes (%) (Auto) 3L, Monocytes (%) (Auto) 4, Eosinophils (%) (Auto) 11H, Basophils (%) (Auto) 0, Neutrophils # (Auto) 28.1H, Lymphocytes # (Auto) 1.2, Monocytes # (Auto) 1.6H, Eosinophils # (Auto) 4.5H, Basophils # (Auto) 0.2H, Immature Granulocyte # (Auto) 4.2H, Neutrophils % (Manual) 85, Lymphocytes % (Manual) 3, Monocytes % (Manual) 1, Band Neutrophils 11, Blood Morphology Comment NORMAL, Sodium Level 138, Potassium Level 4.1, Chloride Level 112H, Carbon Dioxide Level 17L, Anion Gap 9, Blood Urea Nitrogen 14, Creatinine 0.75, Estimat Glomerular Filtration Rate 81, BUN/Creatinine Ratio 19, Glucose Level 149H, Calcium Level 7.9L, Magnesium Level 2.9H 04/22/23 06:52: White Blood Count 39.5*H, Red Blood Count 3.93, Hemoglobin 11.4L, Hematocrit 34L , Mean Corpuscular Volume 87, Mean Corpuscular Hemoglobin 29, Mean Corpuscular Hemoglobin Concent 33, Red Cell Distribution Width 14.2, Platelet Count 174, Mean Platelet Volume 10.6, Immature Granulocyte % (Auto) 9, Neutrophils (%) (Auto) 85H, Lymphocytes (%) (Auto) 2L, Monocytes (%) (Auto) 4, Eosinophils (%) (Auto) 0, Basophils (%) (Auto) 0, Neutrophils # (Auto) 33.6H, Lymphocytes # (Auto) 0.9L, Monocytes # (Auto) 1.6H, Eosinophils # (Auto) 0.0, Basophils # (Auto) 0.0, Immature Granulocyte # (Auto) 3.3H Microbiology 04/21/23 C. difficile GDH Antigen & Toxins - Final, Resulted 04/21/23 Stool Culture, Resulted Pending 04/20/23 MRSA Screen - Final, Complete 04/20/23 Blood Culture - Preliminary, Resulted 04/20/23 Urine Culture - Preliminary, Resulted Probable Klebsiella/Enterobact Radiology NAME: MARY BENNETT [facility] REC#: [id number] PT STATUS: REG ER : 1945 PHYSICIAN: CHELLE BROWN MD ADMIT DATE: 04/20/23/ER Signed Date of Exam:04/20/23 CHEST 1 VIEW, AP/PA ONLY EXAMINATION: Chest radiograph, portable AP view. DATE: 04/20/2023 3:42 PM. INDICATION: 77-year-old female, shaking, weakness, and dizziness. COMPARISON: None. FINDINGS: Heart size and mediastinal contours are unremarkable. Lung volumes are low with associated central bronchovascular crowding. There is no identified pneumothorax. There is no large pleural effusion. There is no identified focal airspace consolidation. IMPRESSION: Low lung volumes without identified acute cardiopulmonary abnormality. Dictated by: Dictated on workstation # [id number] Dict: 04/20/23 1544 Trans: 04/20/23 1558 [id number] Interpreted by: KD PAN MD Electronically signed by: KD PAN MD 04/20/23 1558 ECG Impression ECG Comment LBBB A/P-Cardiology Assessment/Admission Diagnosis NSTEMI vs Type 2 FL secondary to sepsis and hypotension UTI with sepsis - management per medical services Hypotension - requiring pressor support - likely d/t sepsis H/O hypertension Discussion and Recomendations NSTEMI vs Type 2 FL secondary to sepsis and hypotension - echocardiogram UTI with sepsis - management per medical/eICU services Electrolyte abnormalities - replace Monitor lab Further recs will be based on her hospital course SIXTOBLANCAHER Umair HA Apr 21, 2023 10:03
--- NOTE | 2023-04-21 10:48 | Diagnostic Imaging Report ---
INDICATION: PICC line placement. TECHNIQUE: Single view chest at 9:51 AM. CORRELATION STUDY: 04/20/2023. FINDINGS: A left-sided central line has been placed with the tip over the cavoatrial junction. The heart size and mediastinum remain enlarged and prominent. The vasculature is mildly prominent. New opacity in the right lung base is likely a combination of effusion along with infiltrate. There is also a trace left pleural effusion. IMPRESSION: 1. Left-sided central line has been placed with tip at the cavoatrial junction. 2. New opacity in the right lung base, likely a combination of effusion along with consolidation and/or edema. A small left pleural effusion is also present. Dictated by: Dictated on workstation # [id number]
--- NOTE | 2023-04-21 11:24 | Tele-ICU Progress Note ---
Subjective Date Seen by a Provider: Apr 21, 2023 Time Seen by a Provider: 11:23 Subjective/Events-last exam (Tele-ICU Physician , Progress Note ) Service provided via interactive audio and video telecommunications [facility] s tanika to a patient admitted to ICU bed in [facility], [place]. Patient is seen today due to persistent need of ICU care Available chart/ vitals / labs / Images reviewed Video assessment done using teleICU camera, rest of exam as per RN She is a 77-year-old female apparently was in her usual state of health until about a day ago when she was at a rodeo and with her and coming back from that place meanwhile she developed right lower quadrant pain and having chills. She stopped at a urgent care center in [place] where she was prescribed pain pills and antibiotics but they did not fruit or nut picker. On the way back to [place] apparently her symptoms gotten worse with her shivering chills and arrived at via [facility] emergency room. She is found to have a temperature of 104 degrees and low blood pressure. Laboratory data suggestive of urinary tract infection and lactic acidosis suggestive of severe sepsis hence she is admitted for further evaluation and management. She is treated with IV antibiotics, IV fluids and Levophed. This a.m. her blood pressure is improving however still on 0.1 mcg of Levophed. ACVC is inserted today and post procedure chest x-ray [place] wed right lower lobe pneumonia with possible parapneumonic effusion. Impression 1. Severe sepsis with hypotension probably due to urinary tract infection and a pneumonia 2. Rule out any intra-abdominal process 3. Elevated troponin probably secondary to sepsis. 4. Electrolyte abnormality Recommendations 1. Continue hydration 2. Broad-spectrum antibiotics 3. We will get a CT of the abdomen and pelvis 4. Elevated troponin evaluation per cardiology service 5. Correct electrolyte abnormalities 6. DVT prophylaxis. Coordination of care with bedside consultants and primary care physician. I am remotely monitoring this patient from Tele icu station in [place]. I am unable to do the bedside exam, and history/physical and pertinent information is taken from other notes in the computer and bedside staff. Case reviewed with ECHO VASCULAR TECH and in MDR. Certain portions of this document may have been dictated utilizing voice recognition technology such as [employer] (Way[employer]). Inherent to this technology, typographical and grammatical errors may exist. As much as I am diligent to identify and correct to these mistakes, some errors may remain in the document. Critical care time devoted to this patient today is approximately is-30 minutes.- Sepsis Event Evaluation Height, Weight, BMI Height: 5'4.00" Weight: 140lbs. oz. 63.367269je; 28.80 BMI Method:Stated Focused Exam Lactate Level 04/21/23 05:16: Lactic Acid Level 3.38*H 04/21/23 07:18: Lactic Acid Level 3.04*H 04/21/23 09:50: Lactic Acid Level 2.51*H Time of Focused Exam: 16:10 Lactic Acid Level Laboratory Tests Test 04/21/23 09:50 Lactic Acid Level 2.51 MMOL/L (0.50-2.00) *H Exam Exam Patient acknowledged, consented, and participated in this virtual visit which was conducted using real time audio/video Vital Signs Date Time Temp Pulse Resp B/P (MAP) Pulse Ox O2 Delivery O2 Flow Rate FiO2 04/21/23 10:50 113 125/73 04/21/23 10:00 109 38 119/76 (90) 99 Nasal Cannula 2.00 04/21/23 09:00 109 27 115/85 (95) 95 Nasal Cannula 2.00 04/21/23 08:00 116 8 87/71 (76) 97 Nasal Cannula 2.00 04/21/23 08:00 113 113/79 04/21/23 07:53 117 128/81 04/21/23 07:40 116 87/71 04/21/23 07:34 112 04/21/23 07:31 36.5 04/21/23 07:00 112 26 135/79 (97) 96 Nasal Cannula 2.00 04/21/23 06:00 113 10 128/81 (97) 99 Nasal Cannula 2.00 04/21/23 05:00 114 27 130/81 (97) Nasal Cannula 2.00 04/21/23 04:00 96 Nasal Cannula 2.00 04/21/23 04:00 115 26 140/70 (93) 98 Nasal Cannula 2.00 04/21/23 04:00 36.5 04/21/23 03:00 117 23 113/71 (85) 95 Nasal Cannula 2.00 04/21/23 02:25 94 Nasal Cannula 4.00 04/21/23 02:00 115 99/54 (69) 95 Nasal Cannula 2.00 04/21/23 01:00 113 04/21/23 01:00 112 113/66 (82) 88 Nasal Cannula 2.00 04/21/23 00:00 112 113/66 (82) 88 Nasal Cannula 2.00 04/21/23 00:00 112 106/94 (100) 94 Nasal Cannula 2.00 04/21/23 00:00 36.9 04/21/23 00:00 98 Nasal Cannula 2.00 04/20/23 23:56 96 Nasal Cannula 2.00 04/20/23 23:00 116 21 118/73 (88) 93 Nasal Cannula 2.00 04/20/23 22:00 117 30 125/67 (86) 92 Nasal Cannula 2.00 04/20/23 21:00 134 15 133/75 (94) 95 Nasal Cannula 2.00 04/20/23 20:18 114 04/20/23 20:18 155 04/20/23 20:00 112 10 119/65 (83) 95 Nasal Cannula 2.00 04/20/23 20:00 98 Nasal Cannula 2.00 04/20/23 20:00 37.1 04/20/23 19:40 101 23 90/60 (66) 94 Nasal Cannula 2.00 04/20/23 19:40 105 91/60 04/20/23 19:38 98 27 91/60 (71) 96 Nasal Cannula 2.00 04/20/23 19:30 114 28 83/31 (39) 97 Nasal Cannula 2.00 04/20/23 19:20 112 17 130/70 (90) 99 Nasal Cannula 2.00 04/20/23 19:02 103 122/74 (90) 96 Nasal Cannula 2.00 04/20/23 19:01 86 95 04/20/23 19:00 101 04/20/23 18:47 84 62/40 04/20/23 18:00 106 19 75/52 (60) 94 Room Air 04/20/23 18:00 96 Nasal Cannula 2.00 04/20/23 18:00 106 04/20/23 17:18 38.5 99 20 122/78 96 Room Air 04/20/23 14:50 40.3 134 24 136/70 (92) 97 Room Air 2.00 04/20/23 14:50 91 Room Air 2.00 I & O 04/21/23 07:00 Intake Total 3750 ml Output Total 1425 ml Balance 2325 ml Height & Weight Height: 5'4.00" Weight: 140lbs. oz. 63.943755su; 28.80 BMI Method:Stated General Appearance: No Apparent Distress, WD/WN HEENT: Other (very dry oral mucosa) Neck: Normal Inspection Respiratory: Lungs Clear, Normal Breath Sounds, No Accessory Muscle Use, No Respiratory Distress Cardiovascular: Regular Rate, Rhythm, Normal Peripheral Pulses, Tachycardia (120's), Other (2+ bilateral radial pulses and DP pulses) Capillary Refill: Less Than 3 Seconds Gastrointestinal: normal bowel sounds, non tender, other (no flank pain, no pain in RUQ or over bladder) Extremity: Normal Inspection, Normal Range of Motion, No Pedal Edema Neurologic/Psychiatric: Alert, Oriented x3, No Motor/Sensory Deficits, Depressed Affect Results Lab Laboratory Tests 04/20/23 15:07 04/21/23 04:02 Assessment/Plan Assessment/Plan as above Critical Care: Critically Ill Patient Time spent with patient (mins): 30 CORTEZ ZNUIGA MD Apr 21, 2023 11:24
[2023-04-21] MEDS ORDERED: ASPI500T8 PO (11:52)
[2023-04-21] MEDS ORDERED: ASCO500T16 PO (11:52)
[2023-04-21] MEDS ORDERED: NYST1000 PO (11:52)
[2023-04-21] MEDS ORDERED: D-MA500C PO (11:52)
[2023-04-21] MEDS: ENOXAPARIN 80 MG/0.8 ML SYRINGE SC SCH ×2 (12:32→23:30)
--- NOTE | 2023-04-21 16:07 | Diagnostic Imaging Report ---
PROCEDURE: CT abdomen and pelvis without contrast. TECHNIQUE: Multiple contiguous axial images were obtained through the abdomen and pelvis without the use of intravenous contrast. Auto Exposure Controls were utilized during the CT exam to meet ALARA standards for radiation dose reduction. INDICATION: Right upper quadrant pain. Sepsis. COMPARISON: 05/05/2019. FINDINGS: The heart is unremarkable. Mmwkh-zr-mmnxzevl bilateral pleural effusions are seen with bibasilar consolidative opacities. Large calculus is seen in the proximal right ureter just past the UPJ measuring 0.9 cm. There is moderate right-sided hydronephrosis. Additional nonobstructing calculi are seen in the right kidney. The urinary bladder is decompressed with a Benson catheter in place. Bladder calculi are noted in the urinary bladder. No hydronephrosis on the left. There is hepatic steatosis. The gallbladder is mildly distended with dense material in the gallbladder. The spleen, pancreas, and adrenal glands have a normal noncontrast CT appearance. There is no pathologically enlarged mesenteric or retroperitoneal adenopathy. The bowel loops are nondilated. The appendix is visualized in the right lower quadrant and has a normal appearance. Small amount of free fluid is seen in the abdomen and pelvis. There is no free air. No acute osseous abnormalities. There is calcified aortic and iliac atherosclerotic plaque without aneurysm. There is no free air, loculated collection, or adenopathy in the pelvis. IMPRESSION: 1. Obstructing calculus in the proximal right ureter measuring 0.9 cm with moderate right-sided hydronephrosis. Additional nonobstructing right-sided renal calculi are seen. 2. Multiple bladder calculi. 3. Hepatic steatosis. 4. Dense material within the gallbladder lumen, which may represent gallbladder sludge and/or gallstones. Liver/gallbladder ultrasound could be performed to further evaluate. 5. Bilateral jwlmp-[id number] pleural effusions with bibasilar consolidative opacities. 6. Small amount of ascites in the abdomen and pelvis. Dictated by: Dictated on workstation # [id number]
--- NOTE | 2023-04-21 17:15 | Consultation-Cardiology ---
HPI-Cardiology Cardiology Consultation: Date of Consultation 04/21/23 Time Seen by a Provider: 13:20 Date of Admission Attending Physician Dion Be DO Admitting Physician Admitting Physician: Bunny Adhikari MD Attending Physician: Keshia Meehan MD Consulting Physician WASHINGTON SLATER MD, MA, FACP, FACC, [facility], CCDS Physician requesting consult: Dr Adhikari HPI: Chief Complaint: Reason for Card consult: Elevated troponin Ms. Hansen is a 77 yr old female admitted to ICU 6 from the ED. She reports she was at a rodeo with her and on the way home from [place] she started to have chills and right lower quad pain. She reports she started to have chills so they stopped at [facility] in [facility]. She reports she was Rx abx and a pain pill which they did not shrimp picker. She reports on the way back to [place] she continued to feel worse and was trembling. She reports she then went to the ED here and was found to have a temp of 104 degrees. Her BP was noted to be low requiring pressor support. She reports she developed chest heaviness over night; describing it as a feeling that she could not get a deep breath in. She denies any chest pain. No c/o palpitations. No LE swelling. She reports her SOB is better at this time. She reports this morning she sat up in bed and felt dizzy and weak which improved once she was laid back. She reports she generally feels unwell. Temperature at presentation was more than 104 deg F. Review of Systems-Cardiology Review of Systems Constitutional: As described under HPI Eyes: No vision change Ears/Nose/Throat: No epistaxis, No recent hearing loss Respiratory: As described under HPI Cardiovascular: As described under HPI Gastrointestinal: No constipation, No diarrhea, No nausea; vomiting Genitourinary: No dysuria, No hematuria Musculoskeletal: no symptoms reported Skin: No rash on exposed areas, No ulcerations on exposed areas Psychiatric/Neurological: No anxiety, No depression, No seizure, No focal weakness, No syncope Hematologic: No bleeding abnormalities All Other Systems Reviewed Negative Unless Noted: Yes KGO-Nnliwu-Tvwxtm Hx Patient Social History Alcohol Use?: No Pt feels they are or have been: No Immunizations Up To Date Date of Pneumonia Vaccine: Jul 14, 2012 Past Medical History PMH As described under Assessment. Family Medical History Family Medical History: No reported family h/o CAD Allergies and Home Medications Allergies Coded Allergies: codeine (Verified Allergy, Unknown, 10/31/17) Patient Home Medication List Home Medication List Reviewed: Yes Ascorbic Acid/Ascorbate Sodium (Vitamin C 500 mg Tablet Chew) 500 Mg Tab.chew, 500 MG PO DAILY, (Reported) Entered as Reported by: ANGIE PROCTOR on 04/21/231151 Last Action: Reviewed Aspirin (Aspirin EC) 500 Mg Tablet.dr, 500 MG PO Q8H PRN for PAIN-MILD (1-4), (Reported) Entered as Reported by: ANGIE PROCTOR on 04/21/231151 Last Action: Reviewed D-Mannose (Azo D-Mannose) 500 Mg Capsule, 500 MG PO DAILY, (Reported) Entered as Reported by: ANGIE PROCTOR on 04/21/231151 Last Action: Reviewed Losartan Potassium (Losartan Potassium) 50 Mg Tablet, 50 MG PO HS, (Reported) Entered as Reported by: ASHWINI NOLEN on 04/20/23 1739 Last Action: Reviewed Nystatin (Nystatin) 100,000 Unit/Ml Oral.susp, 2 ML PO BID, (Reported) Entered as Reported by: ANGIE PROCTOR on 04/21/231151 Last Action: Reviewed Discontinued Medications [B/P Meds] , (Reported) Discontinued Reason: No Longer Taking Entered as Reported by: ROS DOUGLAS on 10/31/17 1506 Last Action: Discontinued [no medicine reported] , (Reported) Discontinued Reason: No Longer Taking Entered as Reported by: CHELLE BRANNON on 05/18/12 1339 Last Action: Discontinued Physical Exam-Cardiology Physical Exam Vital Signs/I&O 04/21/23 04/21/23 04/21/23 04/21/23 06:00 07:00 07:31 07:34 Temp 36.5 Pulse 113 112 112 Resp 10 26 B/P (MAP) 128/81 (97) 135/79 (97) Pulse Ox 99 96 O2 Delivery Nasal Cannula Nasal Cannula O2 Flow Rate 2.00 4.00 04/21/23 04/21/23 04/21/23 04/21/23 07:40 07:53 08:00 08:00 Pulse 116 117 113 116 Resp 8 B/P (MAP) 87/71 128/81 113/79 87/71 (76) Pulse Ox 97 O2 Delivery Nasal Cannula O2 Flow Rate 4.00 04/21/23 04/21/23 04/21/23 04/21/23 09:00 10:00 10:50 11:00 Pulse 109 109 113 111 Resp 27 38 33 B/P (MAP) 115/85 (95) 119/76 (90) 125/73 119/80 (93) Pulse Ox 95 99 96 O2 Delivery Nasal Cannula Nasal Cannula Nasal Cannula O2 Flow Rate 4.00 4.00 4.00 04/21/23 04/21/23 04/21/23 04/21/23 12:00 12:04 12:04 12:05 Temp 36.2 Pulse 108 106 Resp 16 B/P (MAP) 98/66 (77) Pulse Ox 98 97 O2 Delivery Nasal Cannula Nasal Cannula O2 Flow Rate 4.00 4.00 04/21/23 04/21/23 04/21/23 04/21/23 13:00 14:00 15:00 16:00 Pulse 106 105 105 101 Resp 17 16 22 26 B/P (MAP) 94/51 (65) 100/60 (73) 97/65 (76) 106/75 (85) Pulse Ox 96 98 98 94 O2 Delivery Nasal Cannula Nasal Cannula Nasal Cannula Nasal Cannula O2 Flow Rate 4.00 4.00 4.00 4.00 04/21/23 16:24 Temp 36.4 B/P (MAP) 04/21/23 00:00 Intake Total 3700 ml Output Total 625 ml Balance 3075 ml Capillary Refill : Less Than 3 Seconds Constitutional: AAO x 3, well-developed, well-nourished HEENT: PERRL, hearing is well preserved, oral hygience is good Neck: No carotid bruit; carotid pulses are 2 + bilaterally Respiratory: No accessory muscle use, No respiratory distress; chest expansion is symmetric, chest is bilaterally symmetric, lungs clear to auscultation Cardiovascular: No JVD; tachycardia, S1 and S2 Gastrointestinal: No tender; soft, round; No guarding; audible bowel sounds Extremities: no lower extremity edema bilateral Neurologic/Psychiatric: other (moves all extremities) Skin: warm/dry, pallor; No rash on exposed areas, No ulcerations on exposed areas Data Review Labs Laboratory Tests 04/20/23 19:00: Lactic Acid Level 5.29*H 04/20/23 21:08: Lactic Acid Level 3.37*H, Troponin I 8.663*H 04/20/23 22:58: Lactic Acid Level 3.08*H 04/21/23 01:10: Lactic Acid Level 2.68*H 04/21/23 04:02: Sodium Level 142, Potassium Level 2.8L, Chloride Level 112H, Carbon Dioxide Level 15L, Anion Gap 15H, Blood Urea Nitrogen 13, Creatinine 1.01, Estimat Glomerular Filtration Rate 57, BUN/Creatinine Ratio 13, Glucose Level 195H, Calcium Level 7.6L, Troponin I 6.482*H 04/21/23 05:16: Lactic Acid Level 3.38*H 04/21/23 05:38: Magnesium Level 1.4L 04/21/23 07:18: Lactic Acid Level 3.04*H 04/21/23 09:50: Lactic Acid Level 2.51*H 04/21/23 16:56: Glucometer 229H Microbiology 04/21/23 C. difficile GDH Antigen & Toxins - Final, Resulted 04/21/23 Stool Culture, Resulted Pending 04/20/23 MRSA Screen - Final, Complete 04/20/23 Blood Culture - Preliminary, Resulted 04/20/23 Urine Culture - Preliminary, Resulted Probable Klebsiella/Enterobact A/P-Cardiology Assessment/Admission Diagnosis Elevated troponin: Type 2 LA secondary to sepsis and hypotension vs Type 1 LA - LBBB on ECG (chronicity undetermined) - Echo 04-21-23: LVEF 50%, paradoxical septal motion, AoV sclerosis w/o stenosis, trivial AI, PASP 30-35 mmHg UTI with sepsis and septic shock - management per medical services - requiring pressor support H/O hypertension Discussion and Recomendations * ASA * Wgt-based enoxaparin * BP too low to BB * Hospitalist and ICU services managing sepsis and septic shock * Monitor labs WASHINGTON SLATER MD FACP [facility] Apr 21, 2023 17:15
[2023-04-21] MEDS: inSUlin ASPART 1 UNIT/0.01 ML (PER UNIT) SC SCH ×2 (18:07→21:00)
[2023-04-21] MEDS: CALCIUM CARBONATE 500 MG CHEW TABLET PO PRN (18:11)
--- NOTE | 2023-04-21 20:12 | Short Stay Summary-Hospitalist ---
History of Present Illness HPI/Chief Complaint Silke Hansen is a 77 year old female with PMH HTN who presented with weakness. She was at the [place] yesterday and started feeling bad while she was there. On the way home she developed rigors. She said she's never shaken so much. She reports right sided abdominal pain. She denies back pain. She reports urinary frequency and urgency. She denies chest pain. She denies shortness of breath. Source: patient Exam Limitations: no limitations Date Seen 04/21/23 Time Seen by a Provider: 10:30 Attending Physician Dion Be DO PCP Admitting Physician: Bunny Adhikari MD Attending Physician: Steve Chanel MD Referring Physician Date of Admission Apr 20, 2023 at 17:06 Home Medications & Allergies Home Medications Reviewed patient Home Medication Reconciliation performed by pharmacy medication reconciliations traffic engineering technician and/or nursing. Patients Allergies have been reviewed. Allergies Allergies Coded Allergies codeine (Verified Allergy, Unknown, 10/31/17) Past Uayibcm-Litcoz-Ornxum Hx Patient Social History Tobacco Use?: No Use of E-Cig and/or Vaping dev: No Substance use?: No Alcohol Use?: No Pt feels they are or have been: No Immunizations Up To Date Date of Pneumonia Vaccine: Jul 14, 2012 Current Status status: No status: No Advance Directives: No Communicates: Verbally Primary Language: Guyanese Preferred Spoken Language: Guyanese Past Medical History Surgeries: Hysterectomy Hypertension Family Medical History No Pertinent Family Hx Review of Systems Constitutional: chills, weakness Respiratory: no symptoms reported Cardiovascular: no symptoms reported Gastrointestinal: abdominal pain Genitourinary: frequency Physical Exam Physical Exam Vital Signs Vital Signs - First Documented 04/20/23 14:50 Temp 40.3 Pulse 134 Resp 24 B/P (MAP) 136/70 (92) Pulse Ox 91 O2 Delivery Room Air O2 Flow Rate 2.00 Capillary Refill : Less Than 3 Seconds Height, Weight, BMI Height: 5'4.00" Weight: 140lbs. oz. 63.781325ez; 28.80 BMI Method:Stated General Appearance: No Apparent Distress, WD/WN Eyes: Right Eye Other (significant subconjuctival hemorrhage right eye); Bilateral Eye Normal Inspection, Bilateral Eye PERRL, Bilateral Eye EOMI HEENT: PERRL/EOMI, Pharynx Normal, Other (very dry oral mucosa) Neck: Normal Inspection, Supple Respiratory: Lungs Clear, Normal Breath Sounds, No Accessory Muscle Use, No Respiratory Distress Cardiovascular: Regular Rate, Rhythm, No Edema, Normal Peripheral Pulses Gastrointestinal: Normal Bowel Sounds, Soft, Tenderness Extremity: Normal Inspection, No Pedal Edema Neurologic/Psychiatric: Alert, Oriented x3, No Motor/Sensory Deficits Skin: Normal Color, Warm/Dry Results Results/Procedures Labs Laboratory Tests 04/20/23 15:07 04/21/23 04:02 Patient resulted labs reviewed. Imaging: Reviewed Imaging Report Short Stay Diagnosis Discharge Diagnosis-Short Stay Admission Diagnosis Septic shock due to gram negative bacteremia and UTI Final Discharge Diagnosis Septic shock due to gram negative bacteremia and UTI caused by obstructive ureterolithiasis with hydronephrosis Conclusion Plan Septic shock UTI Bacteremia Ureterolithiasis Hydroureteronephrosis Lactic acidosis NSTEMI, type II Hypokalemia Hypomagnesemia Cultures pending Zosyn IV fluids Levophed Transfer to [facility] for Urology intervention Diagnosis/Problems Diagnosis/Problems (1) Septic shock Status: Acute (2) UTI (urinary tract infection) Status: Acute (3) Gram-negative bacteremia Status: Acute (4) Lactic acidosis Status: Acute (5) NSTEMI (non-ST elevation myocardial infarction) Status: Acute (6) Ureterolithiasis Status: Acute (7) Hydronephrosis Status: Acute Qualifiers: Qualified Codes: N13.2 - Hydronephrosis with renal and ureteral calculous obstruction (8) Hypokalemia Status: Acute (9) Hypomagnesemia Status: Acute STEVE CHANEL MD Apr 21, 2023 20:12
[2023-04-21] MEDS ORDERED: inSUlin ASPART 1 UNIT/0.01 ML (PER UNIT) SC SCH (21:00)
[2023-04-22] MEDS: NS IV 1000 ML 1,000 ML IV SCH (04:48)
[2023-04-22 05:59] LABS: BASOPHILS # (AUTO) 0.2 10^3/uL (0.0-0.1); BASOPHILS % (AUTO) 0 % (0-10); EOSINOPHILS # (AUTO) 4.5 10^3/uL (0.0-0.3); EOSINOPHILS % (AUTO) 11 % (0-10); HEMATOCRIT 35 % (35-52); HEMOGLOBIN 11.7 g/dL (11.5-16.0); LYMPHOCYTES # (AUTO) 1.2 10^3/uL (1.0-4.0); LYMPHOCYTES % (AUTO) 3 % (12-44); MEAN CORPUSCULAR HEMOGLOBIN 30 pg (25-34); MEAN CORPUSCULAR HGB CONC 33 g/dL (32-36); MEAN CORPUSCULAR VOLUME 88 fL (80-99); MEAN PLATELET VOLUME 11.3 fL (9.0-12.2); MONOCYTES # (AUTO) 1.6 10^3/uL (0.0-1.0); MONOCYTES % (AUTO) 4 % (0-12); NEUTROPHILS # (AUTO) 28.1 10^3/uL (1.8-7.8); NEUTROPHILS % (AUTO) 71 % (42-75); PLATELET COUNT 174 10^3/uL (130-400)
[2023-04-22] MEDS ORDERED: POTASSIUM CHLORIDE 20 MEQ TABLET PO SCH (06:00)
[2023-04-22] MEDS ORDERED: MAGNESIUM 1 GM/100 ML IVPB 100 ML IV SCH (06:00)
[2023-04-22] MEDS ORDERED: POTASSIUM CL 10MEQ/50ML IVPB 50 ML IV SCH (06:00)
[2023-04-22 06:02] LABS: WHITE BLOOD COUNT 39.7 10^3/uL (4.3-11.0)
[2023-04-22 06:22] LABS: BAND NEUTROPHILS 11 %; LYMPHOCYTES % (MANUAL) 3 %; MONOCYTES % (MANUAL) 1 %; NEUTROPHILS % (MANUAL) 85 %; RBC MORPH NORMAL
[2023-04-22 06:25] LABS: POTASSIUM 4.1 MMOL/L (3.6-5.0)
[2023-04-22 06:26] LABS: CALCIUM 7.9 MG/DL (8.5-10.1)
[2023-04-22 06:30] LABS: CREATININE SERUM 0.75 MG/DL (0.60-1.30)
[2023-04-22] MEDS: VASOPRESSIN INJECTION 20 UNIT in NS (IVPB) 100 ML 100 ML IV SCH (06:55)
[2023-04-22] MEDS: inSUlin ASPART 1 UNIT/0.01 ML (PER UNIT) SC SCH ×2 (06:56→11:24)
[2023-04-22] MEDS: NOREPINEPHRINE 8 MG/250 ML 250 ML IV SCH (06:57)
[2023-04-22 07:30] LABS: BASOPHILS % (AUTO) 0 % (0-10); EOSINOPHILS % (AUTO) 0 % (0-10); HEMATOCRIT 34 % (35-52); HEMOGLOBIN 11.4 g/dL (11.5-16.0); LYMPHOCYTES # (AUTO) 0.9 X 10^3 (1.0-4.0); LYMPHOCYTES % (AUTO) 2 % (12-44); MEAN CORPUSCULAR HEMOGLOBIN 29 pg (25-34); MEAN CORPUSCULAR HGB CONC 33 g/dL (32-36); MEAN CORPUSCULAR VOLUME 87 fL (80-99); MEAN PLATELET VOLUME 10.6 fL (9.0-12.2); MONOCYTES # (AUTO) 1.6 X 10^3 (0.0-1.0); MONOCYTES % (AUTO) 4 % (0-12); NEUTROPHILS # (AUTO) 33.6 X 10^3 (1.8-7.8); NEUTROPHILS % (AUTO) 85 % (42-75); PLATELET COUNT 174 10^3/uL (130-400)
[2023-04-22 07:33] LABS: WHITE BLOOD COUNT 39.5 10^3/uL (4.3-11.0)
[2023-04-22] MEDS: cefTRIAXone IV/IM 1,000 MG in NS (IVPB) 50 ML 50 ML IV SCH (08:49)
--- NOTE | 2023-04-22 08:59 | Tele-ICU Progress Note ---
Subjective Date Seen by a Provider: Apr 22, 2023 Time Seen by a Provider: 08:50 Subjective/Events-last exam j(Tele-ICU Physician , Progress Note ) Service provided via interactive audio and video telecommunications E-CARE system to a patient admitted to ICU bed in [facility]. Patient is seen today due to persistent need of ICU care Available chart/ vitals / labs / Images reviewed Video assessment done using teleICU camera, rest of exam as per RN 77 yo with septic shock most likely from renal stone seen on CT though pt does not have Sx of pyelonephritis. Currently on IV Zosyn, BC + for gnr, Urine + for Klebsiella and Enterobacter WBC jumped up to 39k, HCO3 17, LA yesterday 2.51 Off levophed since 9:25am, BP 100/53 Sepsis Event Evaluation Height, Weight, BMI Height: 5'4.00" Weight: 140lbs. oz. 63.277045uz; 28.80 BMI Method:Stated Focused Exam Lactate Level 04/21/23 05:16: Lactic Acid Level 3.38*H 04/21/23 07:18: Lactic Acid Level 3.04*H 04/21/23 09:50: Lactic Acid Level 2.51*H Time of Focused Exam: 16:10 Exam Exam Patient acknowledged, consented, and participated in this virtual visit which was conducted using real time audio/video Vital Signs Date Time Temp Pulse Resp B/P (MAP) Pulse Ox O2 Delivery O2 Flow Rate FiO2 04/22/23 07:15 98 04/22/23 06:00 100 124/70 (88) 96 Nasal Cannula 4.00 04/22/23 05:00 98 31 118/73 (88) 98 Nasal Cannula 4.00 04/22/23 04:08 93 Nasal Cannula 4.00 04/22/23 04:00 96 29 121/74 (90) 96 Nasal Cannula 4.00 04/22/23 03:52 36.0 04/22/23 03:00 109 25 132/81 (98) 93 Nasal Cannula 4.00 04/22/23 02:00 102 119/74 (89) 95 Nasal Cannula 4.00 04/22/23 01:00 103 28 136/81 (99) 95 Nasal Cannula 4.00 04/22/23 01:00 103 04/22/23 00:00 98 24 118/76 (91) 97 Nasal Cannula 4.00 04/22/23 00:00 96 Nasal Cannula 4.00 04/21/23 23:45 101 11 117/77 (85) 94 Nasal Cannula 4.00 04/21/23 23:30 98 28 86/76 (81) 95 Nasal Cannula 4.00 04/21/23 23:15 93 20 113/72 (96) 97 Nasal Cannula 4.00 04/21/23 23:00 98 25 98/74 (89) 97 Nasal Cannula 4.00 04/21/23 22:45 102 104/79 (88) Nasal Cannula 4.00 04/21/23 22:30 98 25 116/66 (88) 94 Nasal Cannula 4.00 04/21/23 22:15 103 116/59 (70) Nasal Cannula 4.00 04/21/23 22:00 97 10 108/81 (87) 94 Nasal Cannula 4.00 04/21/23 21:45 98 107/77 (93) 94 Nasal Cannula 4.00 04/21/23 21:30 101 15 114/73 (88) 98 Nasal Cannula 4.00 04/21/23 21:15 98 16 113/72 (91) 95 Nasal Cannula 4.00 04/21/23 21:00 105 22 106/89 (92) 96 Nasal Cannula 4.00 04/21/23 20:45 105 136/60 (78) 95 Nasal Cannula 4.00 04/21/23 20:30 106 22 127/77 (94) 94 Nasal Cannula 4.00 04/21/23 20:15 102 27 120/76 (89) 96 Nasal Cannula 4.00 04/21/23 20:00 94 Nasal Cannula 4.00 04/21/23 20:00 105 28 110/80 (92) 95 Nasal Cannula 4.00 04/21/23 19:45 101 116/82 (91) 97 Nasal Cannula 4.00 04/21/23 19:43 36.4 04/21/23 19:30 103 29 114/81 (93) 96 Nasal Cannula 4.00 04/21/23 19:15 105 37 137/82 (100) 96 Nasal Cannula 4.00 04/21/23 19:00 105 123/93 (107) 95 Nasal Cannula 4.00 04/21/23 19:00 105 04/21/23 18:00 98 8 127/84 (98) 96 Nasal Cannula 4.00 04/21/23 17:00 83 19 64/36 (45) 90 Nasal Cannula 4.00 04/21/23 16:24 36.4 04/21/23 16:20 102 107/68 04/21/23 16:00 94 Nasal Cannula 4.00 04/21/23 16:00 101 26 106/75 (85) 94 Nasal Cannula 4.00 04/21/23 15:00 105 22 97/65 (76) 98 Nasal Cannula 4.00 04/21/23 14:00 105 16 100/60 (73) 98 Nasal Cannula 4.00 04/21/23 13:00 106 17 94/51 (65) 96 Nasal Cannula 4.00 04/21/23 12:05 36.2 04/21/23 12:04 106 04/21/23 12:04 97 Nasal Cannula 4.00 04/21/23 12:00 98 Nasal Cannula 4.00 04/21/23 12:00 108 16 98/66 (77) 98 Nasal Cannula 4.00 04/21/23 11:00 111 33 119/80 (93) 96 Nasal Cannula 4.00 04/21/23 10:50 113 125/73 04/21/23 10:00 109 38 119/76 (90) 99 Nasal Cannula 4.00 04/21/23 09:00 109 27 115/85 (95) 95 Nasal Cannula 4.00 I & O 04/22/23 07:00 Intake Total 3620 ml Output Total 1425 ml Balance 2195 ml Height & Weight Height: 5'4.00" Weight: 140lbs. oz. 63.926708oa; 28.80 BMI Method:Stated General Appearance: No Apparent Distress, WD/WN HEENT: Other (very dry oral mucosa) Neck: Normal Inspection Respiratory: Lungs Clear, Normal Breath Sounds, No Accessory Muscle Use, No Respiratory Distress, Rhonci Cardiovascular: Regular Rate, Rhythm, Normal Peripheral Pulses, Tachycardia (120's), Other (2+ bilateral radial pulses and DP pulses) Capillary Refill: Less Than 3 Seconds Gastrointestinal: normal bowel sounds, non tender, soft, other (no flank pain, no pain in RUQ or over bladder) Extremity: Normal Inspection, Normal Range of Motion, No Pedal Edema, Pedal Edema (trace leg edema) Neurologic/Psychiatric: Alert, Oriented x3, No Motor/Sensory Deficits, Depres sed Affect Skin: Normal Color, Warm/Dry Results Lab Laboratory Tests 04/20/23 15:07 04/21/23 04:02 04/22/23 04:45 04/22/23 06:52 Assessment/Plan Assessment/Plan Septic shock secondary to renal stone, will continue on IV Zosyn and follow WBC, hopefully will start to drop soon. Pt on clear liquid with poor intake, possible transfer to due renal stone, no urologist on staff at [facility]: Critically Ill Patient Time spent with patient (mins): 30 KEYA ANN MD Apr 22, 2023 08:59
[2023-04-22] MEDS: ASPIRIN enteric coated 81MG TABLET PO SCH (09:03)
[2023-04-22 09:24] VITALS: BP 124/83
--- NOTE | 2023-04-22 10:39 | Progress Note - Cardiology ---
Cardiology SOAP Progress Note Subjective: Lying in bed States she feels somewhat better and was able to rest No c/o or SOB Objective: I&O/Vital Signs 04/21/23 04/21/23 04/21/23 04/21/23 22:45 23:00 23:15 23:30 Pulse 102 98 93 98 Resp 25 20 28 B/P (MAP) 104/79 (88) 98/74 (89) 113/72 (96) 86/76 (81) Pulse Ox 97 97 95 O2 Delivery Nasal Cannula Nasal Cannula Nasal Cannula Nasal Cannula O2 Flow Rate 4.00 4.00 4.00 4.00 04/21/23 04/22/23 04/22/23 04/22/23 23:45 00:00 00:00 01:00 Pulse 101 98 103 Resp 11 24 B/P (MAP) 117/77 (85) 118/76 (91) Pulse Ox 94 96 97 O2 Delivery Nasal Cannula Nasal Cannula Nasal Cannula O2 Flow Rate 4.00 4.00 4.00 04/22/23 04/22/23 04/22/23 04/22/23 01:00 02:00 03:00 03:52 Temp 36.0 Pulse 103 102 109 Resp 28 25 B/P (MAP) 136/81 (99) 119/74 (89) 132/81 (98) Pulse Ox 95 95 93 O2 Delivery Nasal Cannula Nasal Cannula Nasal Cannula O2 Flow Rate 4.00 4.00 4.00 04/22/23 04/22/23 04/22/23 04/22/23 04:00 04:08 05:00 06:00 Pulse 96 98 100 Resp 29 31 B/P (MAP) 121/74 (90) 118/73 (88) 124/70 (88) Pulse Ox 96 93 98 96 O2 Delivery Nasal Cannula Nasal Cannula Nasal Cannula Nasal Cannula O2 Flow Rate 4.00 4.00 4.00 4.00 04/22/23 04/22/23 04/22/23 04/22/23 07:00 07:15 08:00 09:00 Pulse 95 98 103 101 Resp 27 B/P (MAP) 123/67 (85) 136/56 (82) 125/82 (96) Pulse Ox 98 98 94 O2 Delivery Nasal Cannula Nasal Cannula Nasal Cannula O2 Flow Rate 4.00 4.00 4.00 04/22/23 04/22/23 09:24 10:00 Pulse 91 90 Resp 18 B/P (MAP) 124/83 113/71 (85) Pulse Ox 95 O2 Delivery Nasal Cannula O2 Flow Rate 4.00 04/22/23 00:00 Intake Total 2550 ml Output Total 750 ml Balance 1800 ml Weight (Pounds): 140 Weight (Calculated Kilograms): 63.260936 Constitutional: AAO x 3, well-developed, well-nourished Respiratory: No accessory muscle use, No respiratory distress; chest expansion is symmetric, chest is bilaterally symmetric, lungs clear to auscultation Cardiovascular: No JVD; tachycardia, S1 and S2 Gastrointestional: No tender; soft, round; No guarding; audible bowel sounds Extremities: no lower extremity edema bilateral Neurologic/Psychiatric: other (moves all extremities) Skin: warm/dry, pallor Results/Procedures: Labs Laboratory Tests 04/21/23 15:07: 04/21/23 16:56: Glucometer 229H 04/21/23 21:02: Glucometer 164H 04/22/23 04:45: White Blood Count 39.7*H, Red Blood Count 3.97, Hemoglobin 11.7, Hematocrit 35, Mean Corpuscular Volume 88, Mean Corpuscular Hemoglobin 30, Mean Corpuscular Hemoglobin Concent 33, Red Cell Distribution Width 13.8, Platelet Count 174, Mean Platelet Volume 11.3, Immature Granulocyte % (Auto) 11, Neutrophils (%) (Auto) 71, Lymphocytes (%) (Auto) 3L, Monocytes (%) (Auto) 4, Eosinophils (%) (Auto) 11H, Basophils (%) (Auto) 0, Neutrophils # (Auto) 28.1H, Lymphocytes # (Auto) 1.2, Monocytes # (Auto) 1.6H, Eosinophils # (Auto) 4.5H, Basophils # (Auto) 0.2H, Immature Granulocyte # (Auto) 4.2H, Neutrophils % (Manual) 85, Lymphocytes % (Manual) 3, Monocytes % (Manual) 1, Band Neutrophils 11, Blood Morphology Comment NORMAL, Sodium Level 138, Potassium Level 4.1, Chloride Level 112H, Carbon Dioxide Level 17L, Anion Gap 9, Blood Urea Nitrogen 14, Creatinine 0.75, Estimat Glomerular Filtration Rate 81, BUN/Creatinine Ratio 19, Glucose Level 149H, Calcium Level 7.9L, Magnesium Level 2.9H 10/10/23 06:52: White Blood Count 39.5*H, Red Blood Count 3.93, Hemoglobin 11.4L, Hematocrit 34L , Mean Corpuscular Volume 87, Mean Corpuscular Hemoglobin 29, Mean Corpuscular Hemoglobin Concent 33, Red Cell Distribution Width 14.2, Platelet Count 174, Mean Platelet Volume 10.6, Immature Granulocyte % (Auto) 9, Neutrophils (%) (Auto) 85H, Lymphocytes (%) (Auto) 2L, Monocytes (%) (Auto) 4, Eosinophils (%) (Auto) 0, Basophils (%) (Auto) 0, Neutrophils # (Auto) 33.6H, Lymphocytes # (Auto) 0.9L, Monocytes # (Auto) 1.6H, Eosinophils # (Auto) 0.0, Basophils # (Auto) 0.0, Immature Granulocyte # (Auto) 3.3H Microbiology 04/21/23 C. difficile GDH Antigen & Toxins - Final, Resulted 04/21/23 Stool Culture, Resulted Pending 04/20/23 MRSA Screen - Final, Complete 04/20/23 Blood Culture - Preliminary, Resulted 04/20/23 Urine Culture - Preliminary, Resulted Probable Klebsiella/Enterobact Laboratory Tests 04/20/23 15:07 04/21/23 04:02 04/22/23 04:45 04/22/23 06:52 A/P: Assessment: Elevated troponin: Type 2 KS secondary to sepsis and hypotension vs Type 1 KS - LBBB on ECG (chronicity undetermined) - Echo 04-21-23: LVEF 50%, paradoxical septal motion, AoV sclerosis w/o stenosis, trivial AI, PASP 30-35 mmHg UTI with sepsis and septic shock - management per medical services - requiring pressor support - CTA of the abdomen 04-21-23: Obstructing calculus in the proximal right ureter measuring 0.9 cm with moderate right-sided hydronephrosis. Additional nonobstructing right-sided renal calculi are seen. Multiple bladder calculi. H/O hypertension Hypokalemia - resolved following replacement Plan: * ASA * Wgt-based enoxaparin * BP too low to BB * Hospitalist and ICU services managing sepsis and septic shock * Ureter and bladder calculi - management per medical services - possible transfer to tertiary care facility with nephrology services * Monitor labs BLANCA HENSON Apr 22, 2023 10:39
[2023-04-22] MEDS: ENOXAPARIN 80 MG/0.8 ML SYRINGE SC SCH (11:46)
--- NOTE | 2023-04-22 13:33 | Progress Note - Hospitalist ---
Subjective HPI/CC On Admission Date Seen by Provider: Apr 22, 2023 Time Seen by Provider: 10:10 Silke Hansen is a 77 year old female with PMH HTN who presented with weakness. She was at the [facility] yesterday and started feeling bad while she was there. On the way home she developed rigors. She said she's never shaken so much. She r eports right sided abdominal pain. She denies back pain. She reports urinary frequency and urgency. She denies chest pain. She denies shortness of breath. Subjective/Events-last exam She is feeling "loopy". She denies pain. She is sitting on the edge of the bed. Focused Exam Lactate Level 04/21/23 05:16: Lactic Acid Level 3.38*H 04/21/23 07:18: Lactic Acid Level 3.04*H 04/21/23 09:50: Lactic Acid Level 2.51*H Time of Focused Exam: 16:10 Objective Exam Vital Signs Vital Signs Date Time Temp Pulse Resp B/P (MAP) Pulse Ox O2 Delivery O2 Flow Rate FiO2 04/22/23 12:28 94 04/22/23 12:00 95 Nasal Cannula 4.00 04/22/23 12:00 36.1 04/22/23 10:00 18 Capillary Refill : Less Than 3 Seconds General Appearance: No Apparent Distress, WD/WN Respiratory: Lungs Clear, No Respiratory Distress Cardiovascular: Regular Rate, Rhythm, No Murmur Gastrointestinal: Normal Bowel Sounds, Soft Extremity: Normal Inspection, No Pedal Edema Neurologic/Psychiatric: Alert, Normal Mood/Affect Results/Procedures Lab Laboratory Tests 04/22/23 04:45 04/22/23 06:52 Patient resulted labs reviewed. Imaging: Reviewed Imaging Report Assessment/Plan Assessment and Plan Assess & Plan/Chief Complaint Septic shock UTI Bacteremia Ureterolithiasis Hydroureteronephrosis Lactic acidosis NSTEMI, type II Hypokalemia Hypomagnesemia Urine and blood cultures with Klebsiella oxytoca Zosyn IV fluids Levophed Transfer delayed, then denied, now going to [facility] Critical Care Critically Ill Patient Diagnosis/Problems Diagnosis/Problems (1) Septic shock Status: Acute (2) UTI (urinary tract infection) Status: Acute (3) Gram-negative bacteremia Status: Acute (4) Lactic acidosis Status: Acute (5) NSTEMI (non-ST elevation myocardial infarction) Status: Acute (6) Ureterolithiasis Status: Acute (7) Hydronephrosis Status: Acute Qualifiers: Hydronephrosis type: with ureteral calculous obstruction Qualified Codes: N13.2 - Hydronephrosis with renal and ureteral calculous obstruction (8) Hypokalemia Status: Acute (9) Hypomagnesemia Status: Acute STEVE CHANEL MD Apr 22, 2023 13:33
[2023-04-22] MEDS ORDERED: cefTRIAXone 1 GM/NS 50 ML IVPB IV NR ×2 (13:45)
--- NOTE | 2023-04-22 17:33 | Progress Note - Cardiology ---
Cardiology SOAP Progress Note Subjective: Gen malaise and weakness No focal weakness No cp or palp or syncope or shortness of breath No n/v/d Objective: I&O/Vital Signs 04/22/23 04/22/23 04/22/23 04/22/23 06:00 07:00 07:15 08:00 Pulse 100 95 98 B/P (MAP) 124/70 (88) 123/67 (85) Pulse Ox 96 98 95 O2 Delivery Nasal Cannula Nasal Cannula Nasal Cannula O2 Flow Rate 4.00 4.00 4.00 04/22/23 04/22/23 04/22/23 04/22/23 08:00 09:00 09:04 09:24 Temp 36.4 Pulse 103 101 91 Resp 27 B/P (MAP) 136/56 (82) 125/82 (96) 124/83 Pulse Ox 98 94 O2 Delivery Nasal Cannula Nasal Cannula O2 Flow Rate 4.00 4.00 04/22/23 04/22/23 04/22/23 04/22/23 10:00 12:00 12:00 12:00 Temp 36.1 Pulse 90 95 Resp 18 10 B/P (MAP) 113/71 (85) 116/69 (84) Pulse Ox 95 100 95 O2 Delivery Nasal Cannula Nasal Cannula Nasal Cannula O2 Flow Rate 4.00 4.00 4.00 04/22/23 04/22/23 04/22/23 04/22/23 12:15 12:28 12:30 12:45 Pulse 98 94 96 89 Resp 25 12 35 B/P (MAP) 116/78 (88) 111/70 (80) 111/67 (85) Pulse Ox 99 100 99 O2 Delivery Nasal Cannula Nasal Cannula Nasal Cannula O2 Flow Rate 4.00 4.00 4.00 04/22/23 04/22/23 04/22/23 04/22/23 13:00 13:00 13:15 13:30 Temp 36.1 Pulse 93 95 88 Resp 28 21 45 B/P (MAP) 122/68 (83) 116/74 (88) 107/85 (92) Pulse Ox 100 94 98 O2 Delivery Nasal Cannula Nasal Cannula Nasal Cannula O2 Flow Rate 4.00 4.00 4.00 04/22/23 04/22/23 04/22/23 04/22/23 13:45 14:01 15:06 15:15 Pulse 87 96 98 Resp 29 42 22 B/P (MAP) 111/68 (80) 122/76 (82) 132/77 (94) Pulse Ox 100 93 95 O2 Delivery Nasal Cannula Nasal Cannula Nasal Cannula O2 Flow Rate 4.00 4.00 4.00 04/22/23 04/22/23 04/22/23 04/22/23 15:30 15:45 16:00 16:04 Temp 36.8 Pulse 98 105 101 Resp 33 18 21 B/P (MAP) 129/77 (93) 132/73 (93) 120/91 (101) Pulse Ox 93 95 96 O2 Delivery Nasal Cannula Nasal Cannula Nasal Cannula O2 Flow Rate 4.00 4.00 4.00 04/21/23 23:59 Intake Total 2550 ml Output Total 750 ml Balance 1800 ml Weight (Pounds): 140 Weight (Calculated Kilograms): 63.176575 Constitutional: AAO x 3, well-developed, well-nourished Respiratory: No accessory muscle use, No respiratory distress; chest expansion is symmetric, chest is bilaterally symmetric, lungs clear to auscultation Cardiovascular: No JVD; tachycardia, S1 and S2 Gastrointestional: No tender; soft, round; No guarding; audible bowel sounds Extremities: no lower extremity edema bilateral Neurologic/Psychiatric: other (moves all extremities) Skin: warm/dry, pallor Results/Procedures: Labs Laboratory Tests 04/21/23 21:02: Glucometer 164H 04/22/23 04:45: White Blood Count 39.7*H, Red Blood Count 3.97, Hemoglobin 11.7, Hematocrit 35, Mean Corpuscular Volume 88, Mean Corpuscular Hemoglobin 30, Mean Corpuscular Hemoglobin Concent 33, Red Cell Distribution Width 13.8, Platelet Count 174, Mean Platelet Volume 11.3, Immature Granulocyte % (Auto) 11, Neutrophils (%) (Auto) 71, Lymphocytes (%) (Auto) 3L, Monocytes (%) (Auto) 4, Eosinophils (%) (Auto) 11H, Basophils (%) (Auto) 0, Neutrophils # (Auto) 28.1H, Lymphocytes # (Auto) 1.2, Monocytes # (Auto) 1.6H, Eosinophils # (Auto) 4.5H, Basophils # (Auto) 0.2H, Immature Granulocyte # (Auto) 4.2H, Neutrophils % (Manual) 85, Lymphocytes % (Manual) 3, Monocytes % (Manual) 1, Band Neutrophils 11, Blood Morphology Comment NORMAL, Sodium Level 138, Potassium Level 4.1, Chloride Level 112H, Carbon Dioxide Level 17L, Anion Gap 9, Blood Urea Nitrogen 14, Creatinine 0.75, Estimat Glomerular Filtration Rate 81, BUN/Creatinine Ratio 19, Glucose Level 149H, Calcium Level 7.9L, Magnesium Level 2.9H 04/22/23 06:52: White Blood Count 39.5*H, Red Blood Count 3.93, Hemoglobin 11.4L, Hematocrit 34L , Mean Corpuscular Volume 87, Mean Corpuscular Hemoglobin 29, Mean Corpuscular Hemoglobin Concent 33, Red Cell Distribution Width 14.2, Platelet Count 174, Mean Platelet Volume 10.6, Immature Granulocyte % (Auto) 9, Neutrophils (%) (Auto) 85H, Lymphocytes (%) (Auto) 2L, Monocytes (%) (Auto) 4, Eosinophils (%) (Auto) 0, Basophils (%) (Auto) 0, Neutrophils # (Auto) 33.6H, Lymphocytes # (Auto) 0.9L, Monocytes # (Auto) 1.6H, Eosinophils # (Auto) 0.0, Basophils # (Auto) 0.0, Immature Granulocyte # (Auto) 3.3H 04/22/23 11:11: Glucometer 130H 04/22/23 15:45: Glucometer 146H Microbiology 04/21/23 C. difficile GDH Antigen & Toxins - Final, Resulted 04/21/23 Stool Culture - Preliminary, Resulted Culture In Progress Presumptive Usual [place] 04/20/23 MRSA Screen - Final, Complete 04/20/23 Blood Culture - Preliminary, Resulted 04/20/23 Urine Culture - Final, Complete Klebsiella oxytoca Laboratory Tests 04/21/23 04:02 04/22/23 04:45 04/22/23 06:52 A/P: Assessment: UTI with sepsis and septic shock due to obstructive uropathy - management per medical services - requiring pressor support - CTA of the abdomen 04-21-23: Obstructing calculus in the proximal right ureter measuring 0.9 cm with moderate right-sided hydronephrosis. Additional nonobstructing right-sided renal calculi are seen. Multiple bladder calculi. Elevated troponin: Probably type 2 WI secondary to sepsis and hypotension, but cannot fully exclude Type 1 WI - LBBB on ECG (chronicity undetermined) - Echo 04-21-23: LVEF 50%, paradoxical septal motion, AoV sclerosis w/o stenosis, trivial AI, PASP 30-35 mmHg H/o hypertension Hypokalemia - resolved following replacement Plan: * ASA * Wgt-based enoxaparin * BP too low for BB * Hospitalist and ICU services managing sepsis and septic shock * Ureter and bladder calculi - management per medical services - possible transfer to tertiary care facility with nephrology services * Monitor labs WASHINGTON SLATER MD FACP FAC CCDS Apr 22, 2023 17:33
--- NOTE | 2023-04-22 17:40 | Progress Note ---
Progress Note Patient discharged via EMS to [facility]. After leaving patient reportedly complained of pain. She was reportedly unable to make the transfer to [facility] via ambulance due to inability to lie flat for the ride. She was offered pain medication but she refused. They returned her to our facility. Upon her return, we discussed the importance of transfer for urologic procedure with high risk of without intervention and she agreed to transfer via helicopter. STEVE CHANEL MD Apr 22, 2023 17:40
[2023-04-23] MEDS ORDERED: cefTRIAXone INJECTION 2,000 MG in NS (IVPB) 50 ML 50 ML IV SCH (09:00)
== END 2023-04-22 16:46 | disposition short-term general hospital (02) | DRG 871 ==
LOC: EDUNIT# 14:39 → ER 14:41 → ICU 17:06 → UNDODISIN 04-22 13:57
PROVIDERS: ADMIT Internal Medicine; ATTEND Internal Medicine
DX: A41.59 Other Gram-negative sepsis (principal); I21.A1 Myocardial infarction type 2; R65.21 Severe sepsis with septic shock; N39.0 Urinary tract infection, site not specified; N13.2 Hydronephrosis with renal and ureteral calculous obstruction; E87.20 Acidosis, unspecified; E87.6 Hypokalemia; E83.42 Hypomagnesemia; I10 Essential (primary) hypertension
CPT/HCPCS: 36415; 36569; 51702; 71045; 74176; 76937; 80048; 80053; 81000; 82947; 83036; 83605; 83735; 84484; 85007; 85025; 85027; 85610; 85730; 87015; 87040; 87045; 87046; 87077; 87081; 87088; 87186; 87324; 87328; 87329; 87449; 87899; 93005; 93306; 94640

== ENCOUNTER 2023-05-10 02:50 | Inpatient (IN) | payer MEDICARE ==
[~2023-05-10] VITALS: Ht 162 cm; Wt 75.0 kg
[2023-05-10] VITALS (8 sets, daily range): BP systolic 81–118; BP diastolic 47–65
[~2023-05-10 02:50] MED LIST changes: +ASCO500T16 PO; +ASPI500T8 PO; +D-MA500C PO; +LOSA50TA63 PO; +NYST1000 PO
--- NOTE | 2023-05-10 02:56 | ED GI ---
General Stated Complaint: POSS INTERNAL BLEEDING Source of Information: Patient (VERY POOR HISTORIAN, ), Old Records History of Present Illness Date Seen by Provider: May 10, 2023 Time Seen by Provider: 02:47 Initial Comments PT ARRIVES VIA POV FROM HOME, NEEDS WHEELCHAIR ON ARRIVAL PT C/O DIARRHEA WITH BLACK STOOLS TONIGHT NO ABDOMINAL PAIN NO NAUSEA/VOMITING NO DIZZINESS OR SYNCOPE NO FEVER/SWEATS/CHILLS C/O GENERALIZED WEAKNESS AND FATIGUE NO BLEEDING FROM OTHER SITES OR EXCESSIVE BRUISING, RASH OR PETECHIAE PT IS ON PLAVIX AND ELIQUIS FOR ATRIAL FIBRILLATION--PT STATES SHE DID NOT KNOW SHE WAS ON BLOOD THINNERS, AND STATES SHE DOES NOT HAVE ANY HEART PROBLEMS AND NEVER HAS HAD. STATES SHE SAW A BAG MAKING MACHINE TENDER AT AND HAD A STRESS TEST AND "DOPPLER" AND "EVERYTHING WAS FINE" PT WAS ADMITTED HERE 04/20-04/22 FOR SEPTIC SHOCK DUE TO BACTEREMIA AND UTI. WAS FOUND TO HAVE URETERAL STONE AND TRANSFERRED TO SHE HAD RIGHT URETERAL STENT PLACED AT AND SHE CURRENTLY HAS INDWELLING VALENZUELA CATHETER SHE WAS THEN PLACED AT [facility] IN [place], [place]--ON 05/01/23 SHE JUST GOT HOME FRIDAY NIGHT 05/09/23 FROM THERE DX PER PAPERWORK FROM RECENT [facility] ADMIT: [facility] 04/22/23-05/01/23, THEN [facility] 05/01-05/08/23 -SEPTIC SHOCK--SHE WAS ON PRESSORS BOTH BEFORE AND AFTER SURGERY. -ENCEPHALOPATHY -ACUTE HYPOXEMIC RESPIRATORY FAILURE--SHE REQUIRED INTUBATION. EXTUBATED 04/23/23 -BILATERAL PLEURAL EFFUSIONS -TACHYCARDIA -RLL PNEUMONIA -UTI -BACTEREMIA -ATRIAL FIBRILLATION WITH RVR--DEVELOPED 04/23/23 -SYSTOLIC DYSFUNCTION -CHF -NSTEMI -LBBB -RIGHT URETERAL STONE WITH RIGHT URETERAL STENT 04/23/23--VALENZU[employer]A PLACED FOR POOR BLADDER EMPTYING ALL RECENT HISTORY IS FROM DISMISSAL PAPERWORK FROM RECENT ADMIT TO / [facility] IN [place] AND RECENT ADMIT HERE PCP: DR. GOETZ Allergies and Home Medications Allergies Coded Allergies: codeine (Verified Allergy, Unknown, 10/31/17) Patient Home Medication List Home Medication List Reviewed: Yes Ascorbic Acid/Ascorbate Sodium (Vitamin C 500 mg Tablet Chew) 500 Mg Tab.chew, 500 MG PO DAILY, (Reported) Entered as Reported by: ANGIE PROCTOR on 04/21/23 1152 Aspirin (Aspirin EC) 500 Mg Tablet.dr, 500 MG PO Q8H PRN for PAIN-MILD (1-4), (Reported) Entered as Reported by: ANGIE PROCTOR on 04/21/23 1152 D-Mannose (Azo D-Mannose) 500 Mg Capsule, 500 MG PO DAILY, (Reported) Entered as Reported by: ANGIE PROCTOR on 04/21/23 1152 Losartan Potassium (Losartan Potassium) 50 Mg Tablet, 50 MG PO HS, (Reported) Entered as Reported by: ASHWINI NOLEN on 04/20/23 1739 Nystatin (Nystatin) 100,000 Unit/Ml Oral.susp, 2 ML PO BID, (Reported) Entered as Reported by: ANGIE PROCTOR on 04/21/23 115 Review of Systems Review of Systems Constitutional: no symptoms reported; No dizziness EENTM: No Symptoms Reported Respiratory: No Symptoms Reported Cardiovascular: No Symptoms Reported Gastrointestinal: See HPI Genitourinary: See HPI Musculoskeletal: no symptoms reported Skin: no symptoms reported Psychiatric/Neurological: No Symptoms Reported Endocrine: No Symptoms Reported Hematologic/Lymphatic: No Symptoms Reported Past Rnjqpxf-Sarder-Lskrqr Hx Patient Social History Tobacco Use?: No Substance use?: No Alcohol Use?: No Past Medical History Surgeries: Yes (URETERAL STENT AT 04/2023) Hysterectomy, Renal Respiratory: Yes (PLEURAL EFFUSION/RESP FAILURE 04/2023) Pneumonia Cardiac: Yes Atrial Fibrillation, Cardiomyopathy, High Cholesterol, Hypertension Family Medical History No Pertinent Family Hx PT WAS ADMITTED HERE 04/20-04/22 FOR SEPTIC SHOCK DUE TO BACTEREMIA AND UTI. WAS FOUND TO HAVE URETERAL STONE AND TRANSFERRED TO SHE HAD URETERAL STENT PLACED AT AND SHE CURRENTLY HAS INDWELLING VALENZUELA CATHETER SHE WAS THEN PLACED AT [facility] IN [place], [place]--AFFILIATED WITH --ON 05/01/23 SHE JUST GOT HOME Friday05/09/23 FROM THERE DX PER PAPERWORK FROM RECENT [facility] ADMIT: 04/22/23-05/01/23, THEN [facility] 05/01-05/08/23 -SEPTIC SHOCK--SHE WAS ON PRESSORS -ENCEPHALOPATHY -ACUTE HYPOXEMIC RESPIRATORY FAILURE--SHE REQUIRED INTUBATION. EXTUBATED 04/23/23 -BILATERAL PLEURAL EFFUSIONS -TACHYCARDIA -RLL PNEUMONIA -UTI -BACTEREMIA -ATRIAL FIBRILLATION WITH RVR--DEVELOPED 04/23/23 -SYSTOLIC DYSFUNCTION -CHF -NSTEMI -LBBB -RIGHT URETERAL STONE WITH RIGHT URETERAL STENT 04/23/23--[facility] PLACED FOR POOR BLADDER EMPTYING Physical Exam Vital Signs Vital Signs - First Documented 05/10/23 02:56 Temp 37.0 Pulse 87 Resp 18 B/P (MAP) 120/60 (80) Pulse Ox 97 O2 Delivery Room Air Capillary Refill : Height/Weight/BMI Height: 5'4.00" Weight: 140lbs. oz. 63.238245ja; 28.80 BMI Method:Stated General Appearance: WD/WN, no apparent distress HEENT: PERRL/EOMI, pale conjunctivae (R), pale conjunctivae (L), other (MULTIPLE HERPETIC LESIONS ON LIPS. 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, no motor/sensory deficits, alert, normal mood/affect, oriented x 3 (BUT WITH POOR MEMORY) Skin: warm/dry, pallor Progress/Results/Core Measures Results/Orders Lab Results Laboratory Tests Test 05/10/23 02:55 05/10/23 03:26 Range/Units White Blood Count 14.7 H 4.3-11.0 10^3/uL Red Blood Count 3.10 L 3.80-5.11 10^6/uL Hemoglobin 8.8 L 11.5-16.0 g/dL Hematocrit 27 L 35-52 % Mean Corpuscular Volume 87 80-99 fL Mean Corpuscular Hemoglobin 28 25-34 pg Mean Corpuscular Hemoglobin Concent 33 32-36 g/dL Red Cell Distribution Width 13.2 10.0-14.5 % Platelet Count 423 H 130-400 10^3/uL Mean Platelet Volume 9.7 9.0-12.2 fL Immature Granulocyte % (Auto) 1 % Neutrophils (%) (Auto) 75 42-75 % Lymphocytes (%) (Auto) 16 12-44 % Monocytes (%) (Auto) 7 0-12 % Eosinophils (%) (Auto) 1 0-10 % Basophils (%) (Auto) 0 0-10 % Neutrophils # (Auto) 11.0 H 1.8-7.8 10^3/uL Lymphocytes # (Auto) 2.4 1.0-4.0 10^3/uL Monocytes # (Auto) 1.0 0.0-1.0 10^3/uL Eosinophils # (Auto) 0.2 0.0-0.3 10^3/uL Basophils # (Auto) 0.1 0.0-0.1 10^3/uL Immature Granulocyte # (Auto) 0.1 0.0-0.1 10^3/uL Neutrophils % (Manual) 78 % Lymphocytes % (Manual) 15 % Monocytes % (Manual) 6 % Eosinophils % (Manual) 1 % Blood Morphology Comment NORMAL Prothrombin Time 20.6 H 12.2-14.7 SEC INR Comment 1.7 H 0.8-1.4 Activated Partial Thromboplast Time 43 H 24-35 SEC Sodium Level 140 135-145 MMOL/L Potassium Level 3.5 L 3.6-5.0 MMOL/L Chloride Level 107 98-107 MMOL/L Carbon Dioxide Level 19 L 21-32 MMOL/L Anion Gap 14 5-14 MMOL/L Blood Urea Nitrogen 30 H 7-18 MG/DL Creatinine 0.70 0.60-1.30 MG/DL Estimat Glomerular Filtration Rate 88 BUN/Creatinine Ratio 43 Glucose Level 144 H 70-105 MG/DL Calcium Level 9.0 8.5-10.1 MG/DL Corrected Calcium 9.7 8.5-10.1 MG/DL Magnesium Level 1.9 1.6-2.4 MG/DL Total Bilirubin 0.4 0.1-1.0 MG/DL Aspartate Amino Transf (AST/SGOT) 20 5-34 U/L Alanine Aminotransferase (ALT/SGPT) 19 0-55 U/L Alkaline Phosphatase 28 L 40-136 U/L Total Protein 6.0 L 6.4-8.2 GM/DL Albumin 3.1 L 3.2-4.5 GM/DL Urine Color YELLOW Urine Clarity SL CLOUDY Urine pH 5.5 5-9 Urine Specific [place]a 1.025 H 1.016-1.022 Urine Protein 2+ H NEGATIVE Urine Glucose (UA) NEGATIVE NEGATIVE Urine Ketones NEGATIVE NEGATIVE Urine Nitrite NEGATIVE NEGATIVE Urine Bilirubin NEGATIVE NEGATIVE Urine Urobilinogen 0.2 < = 1.0 MG/DL Urine Leukocyte Esterase 1+ H NEGATIVE Urine RBC (Auto) 3+ H NEGATIVE Urine RBC 50-100 H /HPF Urine WBC 25-50 H /HPF Urine Squamous Epithelial Cells 0-2 /HPF Urine Crystals NONE /LPF Urine Bacteria MODERATE H /HPF Urine Casts PRESENT /LPF Urine Hyaline Casts 0-2 H /LPF Urine Mucus NEGATIVE /LPF Urine Yeast MODERATE H /HPF Urine Culture Indicated YES Micro Results Microbiology 05/10/23 C. difficile GDH Antigen & Toxins - Final, Complete My Orders Orders - NOMAN HASSAN DO Cbc And Automated Diff (05/10/23 02:53) Comprehensive Metabolic Panel (05/10/23 02:53) Magnesium (05/10/23 02:53) Protime With Inr (05/10/23 02:53) Partial Thromboplastin Time (05/10/23 02:53) Ua Culture If Indicated (05/10/23 02:53) Type And Screen (05/10/23 02:53) Monitor-Rhythm Ecg Trace Only (05/10/23 02:53) Fecal Occult Bedside (05/10/23 02:56) Pantoprazole Injection (Pantoprazole Inj (05/10/23 03:15) Manual Differential (05/10/23 02:55) Ct Abdomen/Pelvis W (05/10/23 03:47) Ed Iv/Invasive Line Start (05/10/23 03:53) Lactated Ringers 1,000 Ml (Lactated Ring (05/10/23 04:00) Urine Culture (05/10/23 03:26) Cefepime Injection (Cefepime Injection) (05/10/23 04:15) Iohexol Injection (Omnipaque 350 Mg/Ml 1 (05/10/23 04:15) Received Contrast (Hold Metformin- Contr (05/10/23 04:15) Ns (Ivpb) 100 Ml (Sodium Chloride 0.9% 1 (05/10/23 04:15) Stool Culture (05/10/23 05:44) Fecal Wbc (05/10/23 05:44) C Difficile Ag + Toxin A/B. (05/10/23 05:44) Medications Given in ED Vital Signs/I&O 05/10/23 02:56 Temp 37.0 Pulse 87 Resp 18 B/P (MAP) 120/60 (80) Pulse Ox 97 O2 Delivery Room Air Progress Progress Note : Progress Note VITALS ON ARRIVAL: TEMP 37.0, HR 87, RR 18, BP 120/60, O2 SAT 97% ON ROOM AIR GIVEN: -IV FLUIDS -PROTONIX LABS: -CBC WITH WBC 14.7, HGB, 8.8, PLT -CMP WITH NA 140, K 3.5, BUN 30, CR 0.7, PROTEIN 6.0, ALB 3.1 -MG 1.9 -PT 20.6, PTT 43, INR 1.7 -UA WITH 1+ LEUKOCYTES, 50-100 RBC, 25-50 WBC, MODERATE BACTERIA CT SCAN WITH SUSPECTED AREA OF BLEEDING IN DUODENUM VITALS REMAIN STABLE PT HAD NO COMPLAINTS DURING ER STAY PT HAD BLACK LIQUID STOOL ON ARRIVAL--HEMOCCULT POSITIVE STOOL SENT FOR CULTURES, C. DIFFICILE, PT HAS RECENTLY BEEN ON IV ANTIBIOTICS PT STATES BLOOD TRANSFUSIONS ARE AGAINST HER NONDENOMINATIONAL-SHE IS [place] DISCUSSED TEST RESULTS, NEED FOR ADMIT AND PT IS AGREEABLE TO PLAN REVIEWED PRIOR RECORDS INCLUDING ER VISITS, ADMITS/H&P'S/CONSULTS/DISCHARGE SUMMARIES, TESTS/PROCEDURES Diagnostic Imaging Comments CT ABDOMEN/PELVIS--PER RADIOLOGIST REPORT FINDINGS: There is atelectasis and scarring at the right lung base. There is motion artifact on multiple images. The heart is normal in size. The liver demonstrates no focal lesions. The spleen appears normal. The pancreas appears normal. The adrenal glands are unremarkable. The right kidney has a ureteral stent. There is no hydronephrosis and no obstructing stone is seen. There are multiple cysts in the kidneys bilaterally. There are multiple calculi in the right kidney, measuring up to 9 mm in diameter. There is cortical scarring in the right kidney. No enhancing masses are seen. There is a catheter in the urinary bladder. The bowel loops are nondistended without obstruction. There is fluid throughout the colon consistent with diarrheal disease. The appendix is not seen but no secondary findings of appendicitis are identified. The aorta has atherosclerosis but is normal in caliber. There is mild wall thickening of the distal esophagus. There is mild hyperdensity seen in the duodenum. There are advanced degenerative changes in the spine. IMPRESSION: 1. Suboptimal evaluation due to motion artifact. 2. Hyperdensity layering in the duodenum. This is not an angiographic exam, but this could represent extravasation of contrast from a gastrointestinal bleed or may represent hyperdense ingested material. EGD could be considered to further evaluate. 3. Calculi in the right kidney which are nonobstructing. Stable right ureteral stent. 4. Fluid throughout the colon consistent with diarrheal disease. 5. Mild wall thickening of the distal esophagus, can be seen with esophagitis. Reviewed: Reviewed by Me Departure Communication (Admissions) 614--SPOKE WITH DR. CHANEL, HOSPITALIST, ACCEPTS PT FOR ADMIT, PENDING CT RESULTS 620--SPOKE WITH DR. SELLERS, SURGEON, FOR CONSULT, PENDING CT RESULTS Impression Primary Impression: GI bleed Additional Impressions: ANTICOAGULATION THERAPY Anemia Indwelling Valenzuela catheter present RECENT HOSPITALIZATION FOR SEPTIC SHOCK RECENT DX A-FIB WITH RVR Recent non-ST elevation myocardial infarction (NSTEMI) History of recent pneumonia RECENT RESPIRATORY FAILURE WITH INTUBATION RECENT URETERAL STENT PLACEMENT FOR URETERAL STONE UTI (urinary tract infection) ABLA (acute blood loss anemia) SUSPECTED STESS ULCER Disposition: ADMITTED INPATIENT Condition: Stable Admissions Decision to Admit Reason: Admit from ER (General) Decision to Admit/Date: May 10, 2023 Time/Decision to Admit Time: 06:15 Departure-Patient Inst. Referrals: JUANA GOETZ DO (PCP/Family) Primary Care Physician NOMAN HSASAN DO May 10, 2023 02:56
[2023-05-10] MEDS ORDERED: PANTOPRAZOLE INJECTION 40 MG VIAL IV ONE ×2 (03:15→09:15)
[2023-05-10 03:24] LABS: BASOPHILS # (AUTO) 0.1 10^3/uL (0.0-0.1); BASOPHILS % (AUTO) 0 % (0-10); EOSINOPHILS # (AUTO) 0.2 10^3/uL (0.0-0.3); EOSINOPHILS % (AUTO) 1 % (0-10); HEMATOCRIT 27 % (35-52); HEMOGLOBIN 8.8 g/dL (11.5-16.0); LYMPHOCYTES # (AUTO) 2.4 10^3/uL (1.0-4.0); LYMPHOCYTES % (AUTO) 16 % (12-44); MEAN CORPUSCULAR HEMOGLOBIN 28 pg (25-34); MEAN CORPUSCULAR HGB CONC 33 g/dL (32-36); MEAN CORPUSCULAR VOLUME 87 fL (80-99); MEAN PLATELET VOLUME 9.7 fL (9.0-12.2); MONOCYTES % (AUTO) 7 % (0-12); NEUTROPHILS % (AUTO) 75 % (42-75); PLATELET COUNT 423 10^3/uL (130-400); WHITE BLOOD COUNT 14.7 10^3/uL (4.3-11.0)
[2023-05-10 03:36] LABS: ALBUMIN 3.1 GM/DL (3.2-4.5); INR 1.7 (0.8-1.4); PROTHROMBIN TIME PATIENT 20.6 SEC (12.2-14.7)
[2023-05-10 03:37] LABS: POTASSIUM 3.5 MMOL/L (3.6-5.0)
[2023-05-10 03:41] LABS: BILIRUBIN,TOTAL 0.4 MG/DL (0.1-1.0)
[2023-05-10 03:43] LABS: CREATININE SERUM 0.7 MG/DL (0.60-1.30)
[2023-05-10 03:45] LABS: MAGNESIUM 1.9 MG/DL (1.6-2.4)
[2023-05-10 03:59] LABS: EOSINOPHILS % (MANUAL) 1 %; LYMPHOCYTES % (MANUAL) 15 %; MONOCYTES % (MANUAL) 6 %; NEUTROPHILS % (MANUAL) 78 %; RBC MORPH NORMAL
[2023-05-10 04:00] LABS: BILIRUBIN,URINE NEGATIVE (NEGATIVE); CLARITY,URINE SL CLOUDY; COLOR,URINE YELLOW; GLUCOSE, URINE (UA) NEGATIVE (NEGATIVE); KETONES,URINE NEGATIVE (NEGATIVE); LEUKOCYTE ESTERASE ,URINE 1+ (NEGATIVE); NITRITE,URINE NEGATIVE (NEGATIVE); PH,URINE 5.5 (5-9); PROTEIN,URINE 2+ (NEGATIVE); RBC,URINE 50-100 /HPF; WBC,URINE 25-50 /HPF
[2023-05-10] MEDS ORDERED: LACTATED RINGERS 1,000 ML 1,000 ML IV ONE ×2 (04:00→19:54)
[2023-05-10 04:01] LABS: BACTERIA,URINE MODERATE /HPF; HYALINE CASTS, URINE 0-2 /LPF; SQUAMOUS EPITHELIAL CELL,UR 0-2 /HPF; YEAST,URINE MODERATE /HPF
[2023-05-10] MEDS ORDERED: NS 100 ML (IVPB) BAG IV ONE (04:15)
[2023-05-10] MEDS ORDERED: CEFEPIME INJECTION 1,000 MG in NS (IVPB) 50 ML 50 ML IV ONE (04:15)
[2023-05-10] MEDS ORDERED: HOLD METFORMIN - RECEIVED CONTRAST 20 ML VIAL IV SCH (04:15)
[2023-05-10] MEDS ORDERED: IOHEXOL 350 MG/ML 100 ML (OMNIPAQUE 350) VIAL IV ONE (04:15)
--- NOTE | 2023-05-10 07:02 | Diagnostic Imaging Report ---
PROCEDURE: CT abdomen and pelvis with contrast. TECHNIQUE: Multiple contiguous axial images were obtained through the abdomen and pelvis after administration of intravenous contrast. Auto Exposure Controls were utilized during the CT exam to meet ALARA standards for radiation dose reduction. All CT scans use one or more of the following dose optimizing techniques: automated exposure control, MA and/or KvP adjustment based on patient size and exam type or iterative reconstruction. INDICATION: Gastrointestinal bleeding. COMPARISON: 04/21/2023 FINDINGS: There is atelectasis and scarring at the right lung base. There is motion artifact on multiple images. The heart is normal in size. The liver demonstrates no focal lesions. The spleen appears normal. The pancreas appears normal. The adrenal glands are unremarkable. The right kidney has a ureteral stent. There is no hydronephrosis and no obstructing stone is seen. There are multiple cysts in the kidneys bilaterally. There are multiple calculi in the right kidney, measuring up to 9 mm in diameter. There is cortical scarring in the right kidney. No enhancing masses are seen. There is a catheter in the urinary bladder. The bowel loops are nondistended without obstruction. There is fluid throughout the colon consistent with diarrheal disease. The appendix is not seen but no secondary findings of appendicitis are identified. The aorta has atherosclerosis but is normal in caliber. There is mild wall thickening of the distal esophagus. There is mild hyperdensity seen in the duodenum. There are advanced degenerative changes in the spine. IMPRESSION: 1. Suboptimal evaluation due to motion artifact. 2. Hyperdensity layering in the duodenum. This is not an angiographic exam, but this could represent extravasation of contrast from a gastrointestinal bleed or may represent hyperdense ingested material. EGD could be considered to further evaluate. 3. Calculi in the right kidney which are nonobstructing. Stable right ureteral stent. 4. Fluid throughout the colon consistent with diarrheal disease. 5. Mild wall thickening of the distal esophagus, can be seen with esophagitis. Dictated by: Dictated on workstation # [id number]
--- NOTE | 2023-05-10 07:14 | Consultation - Surgery ---
MANINDER DILLARD 05/10/23 0714: History of Present Illness History of Present Illness Patient Consulted On(fatimah/time) 05/10/23 07:09 Date Seen by Provider: May 10, 2023 Time Seen by Provider: 06:50 Reason for Visit: Suspected GI bleed History of Present Illness This is a 77-year-old female with hx of high cholesterol, HTN, cardiomyopathy, and Afib who presented to the ED with black, tarry stools yesterday night. She does not have any abdominal pain currently and did not have any leading up today. She has never had anything like this happen before. She was recently admitted on 04/20-04/22 for septic shock requiring pressors due to bacteremia & UTI. Patient was also intubated due to acute hypoxemic respiratory failure and was extubated 04/23. Was then found to have a kidney stone and was transferred to and had a ureteral stent placed. She stated that her diet has been minimal and limited to clears after her surgery because she doesn't quite have an appetite and having some issues with her lips. She has not experienced any gnawing pain while sleeping and has not had any pain after eating & drinking. She denies any NSAID usage and alcohol use. Has been taking Eliquis & Plavix for her Afib which she states she was not aware of taking those medications and thought her heart was fine. She has taken Nilda, extra strength aspirin prn in the past, but hasn't taken any this month. Denies any fever, chills, nausea, vomiting, chest pain. CT imaging: Hyperdensity layering in the duodenum which could represent e xtravastation of contrast from GI bleed or may represent hyperdense ingested material. Fluid in the colon consistent with diarrheal disease. Mild thickening of the distal esophagus, can be seen with esophagitis. Allergies and Home Medications Allergies Coded Allergies: codeine (Verified Allergy, Unknown, 10/31/17) Patient Home Medication List Home Medication List Reviewed: Yes Ascorbic Acid/Ascorbate Sodium (Vitamin C 500 mg Tablet Chew) 500 Mg Tab.chew, 500 MG PO DAILY, (Reported) Entered as Reported by: ANGIE PROCTOR on 04/21/23 1152 Aspirin (Aspirin EC) 500 Mg Tablet.dr, 500 MG PO Q8H PRN for PAIN-MILD (1-4), (Reported) Entered as Reported by: ANGIE PROCTOR on 04/21/23 1152 D-Mannose (Azo D-Mannose) 500 Mg Capsule, 500 MG PO DAILY, (Reported) Entered as Reported by: ANGIE PROCTOR on 04/21/23 1152 Losartan Potassium (Losartan Potassium) 50 Mg Tablet, 50 MG PO HS, (Reported) Entered as Reported by: ASHWINI NOLEN on 04/20/23 1739 Nystatin (Nystatin) 100,000 Unit/Ml Oral.susp, 2 ML PO BID, (Reported) Entered as Reported by: ANGIE PROCTOR on 04/21/23 1152 Past Niipvzr-Kjwrht-Wibfag Hx Patient Social History Alcohol Use?: No Immunizations Up To Date Date of Pneumonia Vaccine: Jul 14, 2012 Surgeries History of Surgeries: Yes (URETERAL STENT AT [facility] 04/2023) Surgeries: Hysterectomy, Renal Respiratory History of Respiratory Disorde: Yes (PLEURAL EFFUSION/RESP FAILURE 04/2023) Respiratory Disorders: Pneumonia Cardiovascular History of Cardiac Disorders: Yes Cardiac Disorders: Atrial Fibrillation, Cardiomyopathy, High Cholesterol, Hypertension Family Medical History Significant Family History: No Pertinent Family Hx Review of Systems-General Constitutional: No chills, No diaphoresis, No fever EENTM: No eye pain, No mouth pain, No throat pain Respiratory: No dyspnea on exertion, No short of breath Cardiovascular: No chest pain, No edema Gastrointestinal: No abdominal pain; melena; No nausea, No vomiting Genitourinary: No dysuria, No frequency Musculoskeletal: No back pain, No gout Skin: No change in color, No dryness Psychiatric/Neurological: Denies Anxiety, Denies Depressed Physical Exam-General Problems Physical Exam Vital Signs Vital Signs - First Documented 05/10/23 02:56 Temp 37.0 Pulse 87 Resp 18 B/P (MAP) 120/60 (80) Pulse Ox 97 O2 Delivery Room Air Capillary Refill : Less Than 3 Seconds General Appearance: WD/WN, no apparent distress Eyes: Bilateral Eye Normal Inspection, Bilateral Eye PERRL, Bilateral Eye EOMI HEENT: PERRL/EOMI, pharynx normal Neck: non-tender Respiratory: chest non-tender, normal breath sounds, no respiratory distress, no accessory muscle use Cardiovascular: no edema Peripheral Pulses: 2+ Dorsalis Pedis (R), 2+ Left Dors-Pedis (L), 2+ Radial Pulses (R), 2+ Radial Pulses (L) Gastrointestinal: non tender, soft, abnormal bowel sounds (Hypoactive); No distended, No guarding, No tenderness Extremities: non-tender Neurologic/Psychiatric: no motor/sensory deficits, alert, normal mood/affect, oriented x 3 Skin: normal color, warm/dry Lymphatic: no adenopathy Data Review Labs Laboratory Tests 05/10/23 02:55: White Blood Count 14.7H, Red Blood Count 3.10L, Hemoglobin 8.8L, Hematocrit 27L, Mean Corpuscular Volume 87, Mean Corpuscular Hemoglobin 28, Mean Corpuscular Hemoglobin Concent 33, Red Cell Distribution Width 13.2, Platelet Count 423H, Mean Platelet Volume 9.7, Immature Granulocyte % (Auto) 1, Neutrophils (%) (Auto) 75, Lymphocytes (%) (Auto) 16, Monocytes (%) (Auto) 7, Eosinophils (%) (Auto) 1, Basophils (%) (Auto) 0, Neutrophils # (Auto) 11.0H, Lymphocytes # (Auto) 2.4, Monocytes # (Auto) 1.0, Eosinophils # (Auto) 0.2, Basophils # (Auto) 0.1, Immature Granulocyte # (Auto) 0.1, Neutrophils % (Manual) 78, Lymphocytes % (Manual) 15, Monocytes % (Manual) 6, Eosinophils % (Manual) 1, Blood Morphology Comment NORMAL, Prothrombin Time 20.6H, INR Comment 1.7H, Activated Partial Thromboplast Time 43H, Sodium Level 140, Potassium Level 3.5L, Chloride Level 107, Carbon Dioxide Level 19L, Anion Gap 14, Blood Urea Nitrogen 30H, Creatinine 0.70, Estimat Glomerular Filtration Rate 88, BUN/Creatinine Ratio 43, Glucose Level 144H, Calcium Level 9.0, Corrected Calcium 9.7, Magnesium Level 1.9, Total Bilirubin 0.4, Aspartate Amino Transf (AST/SGOT) 20, Alanine Aminotransferase (ALT/SGPT) 19, Alkaline Phosphatase 28L, Total Protein 6.0L, Albumin 3.1L 05/10/23 03:26: Urine Color YELLOW, Urine Clarity SL CLOUDY, Urine pH 5.5, Urine Specific [place] 1.025H, Urine Protein 2+H, Urine Glucose (UA) NEGATIVE, Urine Ketones NEGATIVE, Urine Nitrite NEGATIVE, Urine Bilirubin NEGATIVE, Urine Urobilinogen 0.2, Urine Leukocyte Esterase 1+H, Urine RBC (Auto) 3+H, Urine RBC 50-100H, Urine WBC 25-50H, Urine Squamous Epithelial Cells 0-2, Urine Crystals NONE, Urine Bacteria MODERATEH, Urine Casts PRESENT, Urine Hyaline Casts 0-2H, Urine Mucus NEGATIVE, Urine Yeast MODERATEH, Urine Culture Indicated YES Assessment/Plan Assessment/Plan Assessment/Plan GI bleed -Likely due to a stress ulcer Anemia - 8.8 Afib Protonix Possible EGD in the future Hold Eliquis & Plavix Clears MELISSA SELLERS DO 05/10/23 1627: History of Present Illness History of Present Illness History of Present Illness 77 year old on plavix and eliquis for afib. Recent hospitalization for urosepsis secondary to ureteral stone. Having dark tarry stools. Hgb 8.8 this morning. No abdominal pain. CT with Hyperdensity layering in the duodenum which could represent extravastation of contrast from GI bleed or may represent hyperdense ingested material. Fluid in the colon consistent with diarrheal disease. Mild thickening of the distal esophagus, can be seen with esophagitis. Allergies and Home Medications Allergies Coded Allergies: codeine (Verified Allergy, Unknown, 10/31/17) Patient Home Medication List Home Medication List Reviewed: Yes Ascorbic Acid/Ascorbate Sodium (Vitamin C 500 mg Tablet Chew) 500 Mg Tab.chew, 500 MG PO DAILY, (Reported) Entered as Reported by: ANGIE PROCTOR on 04/21/23 115 Aspirin (Aspirin EC) 500 Mg Tablet.dr, 500 MG PO Q8H PRN for PAIN-MILD (1-4), (Reported) Entered as Reported by: ANGIE PROCTOR on 04/21/23 115 D-Mannose (Azo D-Mannose) 500 Mg Capsule, 500 MG PO DAILY, (Reported) Entered as Reported by: ANGIE PROCTOR on 04/21/23 115 Losartan Potassium (Losartan Potassium) 50 Mg Tablet, 50 MG PO HS, (Reported) Entered as Reported by: ASHWINI NOLEN on 04/20/23 6147 Nystatin (Nystatin) 100,000 Unit/Ml Oral.susp, 2 ML PO BID, (Reported) Entered as Reported by: ANGIE PORCTOR on 04/21/23 115 Review of Systems-General Constitutional: No chills, No diaphoresis, No fever EENTM: No blurred vision, No double vision Respiratory: No dyspnea on exertion, No short of breath Cardiovascular: No chest pain, No edema Gastrointestinal: No abdominal pain; melena; No nausea, No vomiting Genitourinary: No dysuria, No frequency Musculoskeletal: No back pain, No gout Skin: No change in color, No change in hair/nails, No dryness Psychiatric/Neurological: Denies Anxiety, Denies Depressed All Other Systems Reviewed Negative Unless Noted: Yes (Negative excepted noted.) Physical Exam-General Problems Physical Exam General Appearance: WD/WN, no apparent distress HEENT: PERRL/EOMI, normal ENT inspection Neck: non-tender, supple Respiratory: chest non-tender, no respiratory distress, no accessory muscle use Cardiovascular: regular rate, rhythm, no edema Gastrointestinal: non tender, soft; No tenderness Rectal: deferred Back: no CVA tenderness, no vertebral tenderness Extremities: non-tender, normal inspection Neurologic/Psychiatric: alert, normal mood/affect, oriented x 3 Skin: warm/dry, pallor Lymphatic: no adenopathy Assessment/Plan Assessment/Plan Assessment/Plan GI bleed likely upper, possibly ulcer Anemia - 8.8 Afib Fdc anticoagulation/antiplatelet Protonix Possible EGD in the future Hold Eliquis & Plavix Discussed KCentra which will give, which patient is okay with. Will no accept any blood products. Clears Follow hgb. Hgb has now dropped to 5.5 and will do EGD all other indicated procedures. If not able to get stopped may need surgical intervention. Supervisory-Addendum Brief Verification & Attestation Participated in pt care: history, MDM, physical Personally performed: exam, history, MDM, supervision of care Care discussed with: Medical Student Procedures: n/a Results interpretation: Verified all documentation Verification and Attestation of Medical Student E/M Service A medical student performed and documented this service in my presence. I reviewed and verified all information documented by the medical student and made modifications to such information, when appropriate. I personally performed the physical exam and medical decision making. Melissa Sellers, May 10, 2023,16:30 MANINDER DILLARD May 10, 2023 07:14 MELISSA SELLERS DO May 10, 2023 16:27
[2023-05-10 09:21] LABS: HEMOGLOBIN 7.2 g/dL (11.5-16.0)
[2023-05-10] MEDS: LACTATED RINGERS 1,000 ML 1,000 ML IV SCH ×3 (09:31→23:17)
[2023-05-10] MEDS: CEFEPIME INJECTION 1,000 MG in NS (IVPB) 50 ML 50 ML IV SCH ×3 (09:54→21:10)
[2023-05-10] MEDS ORDERED: IRON DEXTRAN INJECTION 1,000 MG in NS (IVPB) 250 ML 250 ML IV ONE (11:00)
[2023-05-10] MEDS ORDERED: HYDROCORTISONE INJECTION 100 MG/2 ML VIAL IV PRN (11:00)
[2023-05-10] MEDS ORDERED: diphenhydrAMINE INJ 50 MG/ML VIAL IV PRN (11:00)
[2023-05-10] MEDS ORDERED: EPINEPHrine INJECTION 1 MG/ML AMP IM PRN (11:00)
[2023-05-10] MEDS ORDERED: IRON DEXTRAN INJECTION 25 MG in NS (IVPB) 250 ML 5.75 ML IV ONE (11:00)
[2023-05-10] MEDS ORDERED: RT-ALBUTEROL SULF 2.5 MG/3 ML PRE-MIX VIAL IH PRN (11:00)
[2023-05-10] MEDS ORDERED: CYANOCOBALAMIN 1000 MCG/ML 1 ML VIAL IM ONE (11:15)
[2023-05-10] MEDS ORDERED: FOLIC ACID 5MG/ML 10 ML IV ONE (11:15)
[2023-05-10] MEDS ORDERED: HUMAN PROTHROMBIN COMPLX(PCC) 500 UNIT (KCENTRA) IV ONE (12:00)
[2023-05-10] MEDS: NS IV 500 ML 500 ML IV SCH (12:59)
[2023-05-10] MEDS ORDERED: CEFEPIME INJECTION 1,000 MG in NS (IVPB) 50 ML 50 ML IV SCH (14:00)
--- NOTE | 2023-05-10 16:45 | History & Physical-Hospitalist ---
History of Present Illness HPI/Chief Complaint Silke Hansen is a 77 year old female with PMH HTN, AFib on Eliquis, HLD, nephrolithiasis with septic stone and hydronephrosis s/p ureteral stent, who presented with melena. She reports having black stools yesterday. She denies abdominal pain. She denies nausea and vomiting. She is continuing to have black stools this morning. She is a holiness and does not want blood products. She was admitted earlier this month with septic shock due to Klebsiella oxytoca UTI and bacteremia. She was found to have an obstructing ureteral stone and was transferred to [facility]. She required intubation. She had the stone removed and a ureteral stent placed. She had issues with AFib with RVR and was started on Eliquis. She had an NSTEMI, presumably type II due to shock. She was started on Plavix at that time as well. Source: patient Exam Limitations: no limitations Date Seen 05/10/23 Time Seen by a Provider: 11:00 Attending Physician Dion Be DO PCP Admitting Physician: Keshai Chanel MD Attending Physician: Dion Be DO Referring Physician Date of Admission May 10, 2023 at 07:13 Home Medications & Allergies Home Medications Reviewed patient Home Medication Reconciliation performed by pharmacy medication reconciliations construction services technician and/or nursing. Patients Allergies have been reviewed. Allergies Allergies Coded Allergies codeine (Verified Allergy, Unknown, 10/31/17) Past Lcejrxb-Upnabn-Hnscaj Hx Patient Social History Tobacco Use?: No Use of E-Cig and/or Vaping dev: No Substance use?: No Alcohol Use?: No Pt feels they are or have been: No Immunizations Up To Date Tetanus Booster (TDap): Unknown Hepatitis A: No Hepatitis B: No Date of Pneumonia Vaccine: Jul 14, 2012 Current Status Advance Directives: No Communicates: Verbally Primary Language: Faroese Preferred Spoken Language: Faroese Is interpretation needed?: No Implanted or Applied Medical D: Stents Past Medical History Surgeries: Hysterectomy, Renal Pneumonia Atrial Fibrillation, Cardiomyopathy, High Cholesterol, Hypertension Family Medical History No Pertinent Family Hx PT WAS ADMITTED HERE 04/20-04/22 FOR SEPTIC SHOCK DUE TO BACTEREMIA AND UTI. WAS FOUND TO HAVE URETERAL STONE AND TRANSFERRED TO SHE HAD URETERAL STENT PLACED AT AND SHE CURRENTLY HAS [employer] VALENZUELA CATHETER SHE WAS THEN PLACED AT [facility] IN [place], [place]--AFFILIATED WITH --ON 05/01/23 SHE JUST GOT HOME Friday05/09/23 FROM THERE DX PER PAPERWORK FROM [facility] ADMIT: [facility] 04/22/23-05/01/23, [facility] -SEPTIC SHOCK--SHE WAS ON PRESSORS -ENCEPHALOPATHY -ACUTE HYPOXEMIC RESPIRATORY FAILURE--SHE REQUIRED INTUBATION. EXTUBATED 04/23/23 -BILATERAL PLEURAL EFFUSIONS -TACHYCARDIA -RLL PNEUMONIA -UTI -BACTEREMIA -ATRIAL FIBRILLATION WITH RVR--DEVELOPED 04/23/23 -SYSTOLIC DYSFUNCTION -CHF -NSTEMI -LBBB -RIGHT URETERAL STONE WITH RIGHT URETERAL STENT 04/23/23--VALENZUELA PLACED FOR POOR BLADDER EMPTYING Review of Systems Constitutional: no symptoms reported Respiratory: no symptoms reported Cardiovascular: no symptoms reported Gastrointestinal: melena Physical Exam Physical Exam Vital Signs Vital Signs - First Documented 05/10/23 02:56 Temp 37.0 Pulse 87 Resp 18 B/P (MAP) 120/60 (80) Pulse Ox 97 O2 Delivery Room Air Capillary Refill : Less Than 3 Seconds Height, Weight, BMI Height: 5'4.00" Weight: 140lbs. oz. [id number]; 25.91 BMI Method:Stated General Appearance: No Apparent Distress, WD/WN HEENT: PERRL/EOMI, Pharynx Normal Respiratory: Lungs Clear, No Respiratory Distress Cardiovascular: Regular Rate, Rhythm, No Murmur Gastrointestinal: Normal Bowel Sounds, Non Tender, Soft Extremity: Normal Inspection Neurologic/Psychiatric: Alert, Normal Mood/Affect, Motor Weakness Skin: Warm/Dry, Pallor Results Results/Procedures Labs Laboratory Tests 05/10/23 02:55 05/10/23 09:12 05/10/23 15:33 Patient resulted labs reviewed. Imaging: Reviewed Imaging Report Assessment/Plan Admission Diagnosis Acute upper GI bleeding Admission Status: Inpatient Order (span 2 midnights) Reason for Inpatient Admission: Anemia Assessment and Plan Acute upper GI bleeding Acute blood loss anemia Chronic anticoagulation Paroxysmal AFib Scientology Hgb decreased from baseline, continuing to decrease IV PPI Monitor H/H Surgery following Hold Eliquis and Plavix KCentra ordered, discussed with patient and she agreed Infed infusion B12 injection Folic acid Refusing blood products due to being Scientology Consider EGD if hemoglobin continues to drop Case discussed with Dr. Calderón, surgery Ureteral stent present Nephrolithiasis UTI Cefepime HTN HLD Hold home meds DVT prophylaxis: SCDs only due to GI bleed Diagnosis/Problems Diagnosis/Problems (1) Acute upper GI bleeding Status: Acute (2) ABLA (acute blood loss anemia) Status: Acute (3) Chronic anticoagulation Status: Chronic (4) Paroxysmal atrial fibrillation Status: Chronic (5) HTN (hypertension) Status: Chronic (6) HLD (hyperlipidemia) Status: Chronic (7) Ureteral stent present Status: Chronic (8) Refusal of blood transfusions as patient is Anabaptist Status: Acute KESHIA CHANEL MD May 10, 2023 16:45
[2023-05-10] MEDS ORDERED: LACTATED RINGERS 1,000 ML 1,000 ML IV STA (17:08)
[2023-05-10] MEDS ORDERED: HURRICAINE EXT TUBE (BENZOCAINE) XX PRN (17:15)
[2023-05-10] MEDS ORDERED: PHENYLEPHRINE 100 MCG/ML 10 ML (ANESTHESIA) SYR ONE (17:29)
[2023-05-10] MEDS ORDERED: EPINEPHrine INJECTION 1 MG/ML AMP ONE (17:29)
[2023-05-10] MEDS ORDERED: ONDANSETRON INJECTION 4 MG/2 ML (SDV) IVP ONE (17:35)
[2023-05-10] MEDS ORDERED: ONDANSETRON INJECTION 4 MG/2 ML (SDV) ONE (17:41)
--- NOTE | 2023-05-10 17:41 | Anesthesia-General Post-Op ---
MAC Patient Condition Mental Status/LOC: Same as Preop Cardiovascular: Satisfactory Nausea/Vomiting: Absent Respiratory: Satisfactory Pain: Controlled Complications: Absent Post Op Complications Complications None Follow Up Care/Instructions Patient Instructions None needed. Anesthesiology Discharge Order Discharge Order Patient is doing well, no complaints, stable vital signs, no apparent adverse anesthesia problems. No complications reported per nursing. CARROLL AREVALO CRNA May 10, 2023 17:41
[2023-05-10] MEDS: TAMSULOSIN 0.4 MG (FLOMAX) CAP PO SCH (18:25)
--- NOTE | 2023-05-10 18:55 | Consultation-Cardiology ---
HPI-Cardiology Cardiology Consultation: Date of Consultation 05/10/23 Date of Admission Attending Physician Dion Be DO Admitting Physician Admitting Physician: Keshia Meehan MD Attending Physician: Dion Be DO Consulting Physician Flex PARKS MD HPI: Time Seen by a Provider: 14:30 Chief Complaint: Lower GI bleed This is a 77-year-old lady with history of hypertension, hyperlipidemia, recent admission in early April 2023 for UTI due to ureteric stone, therefore transferred to for ureteral stent. Records are not available from but apparently she had an episode of atrial fibrillation and was started on Eliquis. I do not know the reason for Plavix. She does not have any history of CAD, PAD or TIA/CVA. There is a possibility that she was started on Plavix due to positive troponin during her last admission. At that point in time, cardiology consultation suggest that it was likely type II HI due to septic shock. Normal LV function on echocardiogram with no wall motion abnormalities during that admission. However presents with black stools, likely GI bleeding. Patient denied any significant cardiac complaints on my evaluation. Review of Systems-Cardiology Review of Systems Constitutional: no symptoms reported Eyes: no symptoms reported Ears/Nose/Throat: no symptoms reported Respiratory: no symptoms reported Cardiovascular: no symptoms reported Gastrointestinal: rectal bleeding, stool coloration changes Genitourinary: no symptoms reported Skin: no symptoms reported Psychiatric/Neurological: no symptoms reported Hematologic: anemia All Other Systems Reviewed Negative Unless Noted: Yes (Negative excepted noted.) EPQ-Pkqsyw-Qeugyk Hx Patient Social History Alcohol Use?: No Pt feels they are or have been: No Immunizations Up To Date Date of Pneumonia Vaccine: Jul 14, 2012 Past Medical History PMH As described under Assessment. Family Medical History Family Medical History: No reported family h/o CAD Allergies and Home Medications Allergies Coded Allergies: codeine (Verified Allergy, Unknown, 10/31/17) Patient Home Medication List Home Medication List Reviewed: Yes Ascorbic Acid/Ascorbate Sodium (Vitamin C 500 mg Tablet Chew) 500 Mg Tab.chew, 500 MG PO DAILY, (Reported) Entered as Reported by: ANGIE PROCTOR on 04/21/23 1152 Aspirin (Aspirin EC) 500 Mg Tablet.dr, 500 MG PO Q8H PRN for PAIN-MILD (1-4), (Reported) Entered as Reported by: ANGIE PROCTOR on 04/21/23 1152 D-Mannose (Azo D-Mannose) 500 Mg Capsule, 500 MG PO DAILY, (Reported) Entered as Reported by: ANGIE PROCTOR on 04/21/23 1152 Losartan Potassium (Losartan Potassium) 50 Mg Tablet, 50 MG PO HS, (Reported) Entered as Reported by: ASHWINI NOLEN on 04/20/23 1739 Nystatin (Nystatin) 100,000 Unit/Ml Oral.susp, 2 ML PO BID, (Reported) Entered as Reported by: ANGIE PROCTOR on 04/21/23 1152 Exam Vital Signs Vital Signs Date Time Temp Pulse Resp B/P (MAP) Pulse Ox O2 Delivery O2 Flow Rate FiO2 05/10/23 15:19 36.8 96 16 112/62 (79) 95 Room Air Physical Exam Constitutional examination: Pallor. Chest: Clear to auscultation bilaterally. CVS: Regular rate and rhythm with no significant murmur, rub or gallop. Psychiatry: No active issues. No significant peripheral edema. Labs Laboratory Tests Test 05/10/23 02:55 05/10/23 03:26 05/10/23 09:12 05/10/23 09:19 Range/Units White Blood Count 14.7 H 4.3-11.0 10^3/uL Red Blood Count 3.10 L 3.80-5.11 10^6/uL Hemoglobin 8.8 L 7.2 L 11.5-16.0 g/dL Hematocrit 27 L 23 L 35-52 % Mean Corpuscular Volume 87 80-99 fL Mean Corpuscular Hemoglobin 28 25-34 pg Mean Corpuscular Hemoglobin Concent 33 32-36 g/dL Red Cell Distribution Width 13.2 10.0-14.5 % Platelet Count 423 H 130-400 10^3/uL Mean Platelet Volume 9.7 9.0-12.2 fL Immature Granulocyte % (Auto) 1 % Neutrophils (%) (Auto) 75 42-75 % Lymphocytes (%) (Auto) 16 12-44 % Monocytes (%) (Auto) 7 0-12 % Eosinophils (%) (Auto) 1 0-10 % Basophils (%) (Auto) 0 0-10 % Neutrophils # (Auto) 11.0 H 1.8-7.8 10^3/uL Lymphocytes # (Auto) 2.4 1.0-4.0 10^3/uL Monocytes # (Auto) 1.0 0.0-1.0 10^3/uL Eosinophils # (Auto) 0.2 0.0-0.3 10^3/uL Basophils # (Auto) 0.1 0.0-0.1 10^3/uL Immature Granulocyte # (Auto) 0.1 0.0-0.1 10^3/uL Neutrophils % (Manual) 78 % Lymphocytes % (Manual) 15 % Monocytes % (Manual) 6 % Eosinophils % (Manual) 1 % Blood Morphology Comment NORMAL Prothrombin Time 20.6 H 12.2-14.7 SEC INR Comment 1.7 H 0.8-1.4 Activated Partial Thromboplast Time 43 H 24-35 SEC Sodium Level 140 135-145 MMOL/L Potassium Level 3.5 L 3.6-5.0 MMOL/L Chloride Level 107 98-107 MMOL/L Carbon Dioxide Level 19 L 21-32 MMOL/L Anion Gap 14 5-14 MMOL/L Blood Urea Nitrogen 30 H 7-18 MG/DL Creatinine 0.70 0.60-1.30 MG/DL Estimat Glomerular Filtration Rate 88 BUN/Creatinine Ratio 43 Glucose Level 144 H 70-105 MG/DL Calcium Level 9.0 8.5-10.1 MG/DL Corrected Calcium 9.7 8.5-10.1 MG/DL Magnesium Level 1.9 1.6-2.4 MG/DL Total Bilirubin 0.4 0.1-1.0 MG/DL Aspartate Amino Transf (AST/SGOT) 20 5-34 U/L Alanine Aminotransferase (ALT/SGPT) 19 0-55 U/L Alkaline Phosphatase 28 L 40-136 U/L Total Protein 6.0 L 6.4-8.2 GM/DL Albumin 3.1 L 3.2-4.5 GM/DL Urine Color YELLOW Urine Clarity SL CLOUDY Urine pH 5.5 5-9 Urine Specific [place] 1.025 H 1.016-1.022 Urine Protein 2+ H NEGATIVE Urine Glucose (UA) NEGATIVE NEGATIVE Urine Ketones NEGATIVE NEGATIVE Urine Nitrite NEGATIVE NEGATIVE Urine Bilirubin NEGATIVE NEGATIVE Urine Urobilinogen 0.2 < = 1.0 MG/DL Urine Leukocyte Esterase 1+ H NEGATIVE Urine RBC (Auto) 3+ H NEGATIVE Urine RBC 50-100 H /HPF Urine WBC 25-50 H /HPF Urine Squamous Epithelial Cells 0-2 /HPF Urine Crystals NONE /LPF Urine Bacteria MODERATE H /HPF Urine Casts PRESENT /LPF Urine Hyaline Casts 0-2 H /LPF Urine Mucus NEGATIVE /LPF Urine Yeast MODERATE H /HPF Urine Culture Indicated YES Test 05/10/23 15:33 Range/Units Hemoglobin 5.5 #*L 11.5-16.0 g/dL ECG Impression ECG Initial ECG Rhythm: Normal Sinus A/P-Cardiology Assessment/Admission Diagnosis Likely lower GI bleeding, Jehovah witness, Recent UTI sepsis, septic shock due to kidney stone, s/p ureteral stent, Possible recent episode of atrial fibrillation, on Eliquis. Possible recent type II non-STEMI, on Plavix. Records from are pending Plan Likely lower GI bleeding, Jehovah witness, Recent UTI sepsis, septic shock due to kidney stone, s/p ureteral stent, Possible recent episode of atrial fibrillation, on Eliquis. Possible recent type II non-STEMI, on Plavix. Records from are pending I discussed at length with the patient and recommended that we will have to stop both Plavix and Eliquis. Due to very likely active GI bleeding. She understands the risk of stopping both Plavix and Eliquis. Currently the patient is in sinus rhythm. Awaiting records from to figure out the etiology for both Plavix and Eliquis. I do not know if any coronary evaluation was done at . Patient denies having any significant cardiac testing at especially coronary angiography. She does share with me that she may have had an episode of atrial fibrillation therefore she was put on Eliquis. She is not sure about the reason of Plavix. Flex PARKS MD May 10, 2023 18:55
[2023-05-10] MEDS: PANTOPRAZOLE INJECTION 40 MG VIAL IV SCH (20:02)
--- NOTE | 2023-05-10 20:36 | OPERATIVE REPORT ---
DATE OF SERVICE: 05/10/2023 PREOPERATIVE DIAGNOSIS: Upper gastrointestinal bleed. POSTOPERATIVE DIAGNOSES: Bleeding duodenal ulcer, hiatal hernia. PROCEDURE: EGD with injection of epinephrine to control duodenal bleed. SURGEON: Melissa Calderón DO ESTIMATED BLOOD LOSS: Minimal. COMPLICATIONS: None. INDICATIONS: The patient is a 77-year-old female with a significant recent past medical history. She is on Plavix and Eliquis which the Eliquis has been reversed. She declined any blood products. She is Jehovah witness. Her hemoglobin has continued to drop and we discussed risks and benefits of having EGD performed. She understands risks and benefits and wishes to proceed. Consent was signed in chart. DESCRIPTION OF PROCEDURE: The patient was taken to the endoscopy suite, placed in left lateral recumbent position. Timeout was performed. Scope was inserted in the mouth, down the esophagus, stomach and into the duodenum, which had blood within the duodenum. This was irrigated and suctioned. Multiple duodenal ulcers present. Continued to irrigate and suction to try to visualize where the bleeding was coming from. Scope was then continuously retracted back. Right after pyloric channel after the first sweep, a ulcer was there, which was the ulcer that was bleeding. Just distal to the area of bleeding, epinephrine was injected 1 mL. The scope was then brought back to the ulcer, which another mL of epinephrine was injected. The area was irrigated. Hemostasis was achieved. We continue to monitor this area for a little while irrigating and trying to observe any other bleeding was present. No other bleeding occurred while we were there. So scope was then continuously retracted back into the stomach, which there was no polyps, masses or ulcerations in the stomach. Scope was retroflexed noting hiatal hernia, no other pathology. Scope was returned to its normal position, slowly withdrawn until distal esophagus, which had normal appearance, no polyps, masses or ulcerations. Scope was slowly retracted back until completely removed. The patient tolerated the procedure well without complications, taken to recovery room in stable condition. RECOMMENDATIONS: The patient is to continue on Protonix. We will keep her n.p.o. The patient is Jehovah witness, which we did discuss the recommendation would be to receive blood products at this time, but we also will respect her wishes and she declined. I had a long discussion with further management. If continues to drop, we will need repeat EGD for further evaluation and possible surgical intervention. All questions were answered with the family as well. Job ID: [id number] DocumentID: [id number] Dictated Date: 05/10/2023 18:26:44 Chain Tender Date: 05/10/2023 20:35:00 Dictated By: MELISSA CALDERÓN DO
[2023-05-11] MEDS: NS IV 500 ML 500 ML IV SCH ×2 (03:53→19:58)
[2023-05-11 04:04] VITALS: BP 126/60
[2023-05-11] MEDS: CEFEPIME INJECTION 1,000 MG in NS (IVPB) 50 ML 50 ML IV SCH ×4 (04:09→20:43)
[2023-05-11] MEDS: LACTATED RINGERS 1,000 ML 1,000 ML IV SCH ×4 (04:48→22:23)
[2023-05-11 05:34] LABS: CALCIUM 8.2 MG/DL (8.5-10.1); CREATININE SERUM 0.66 MG/DL (0.60-1.30); POTASSIUM 3.6 MMOL/L (3.6-5.0)
[2023-05-11 05:36] LABS: BASOPHILS % (AUTO) 0 % (0-10); EOSINOPHILS # (AUTO) 0.1 10^3/uL (0.0-0.3); EOSINOPHILS % (AUTO) 1 % (0-10); LYMPHOCYTES # (AUTO) 2.2 10^3/uL (1.0-4.0); LYMPHOCYTES % (AUTO) 21 % (12-44); MEAN CORPUSCULAR HEMOGLOBIN 29 pg (25-34); MEAN CORPUSCULAR HGB CONC 33 g/dL (32-36); MEAN CORPUSCULAR VOLUME 88 fL (80-99); MONOCYTES # (AUTO) 0.6 10^3/uL (0.0-1.0); MONOCYTES % (AUTO) 6 % (0-12); NEUTROPHILS # (AUTO) 7.6 10^3/uL (1.8-7.8); NEUTROPHILS % (AUTO) 71 % (42-75); PLATELET COUNT 283 10^3/uL (130-400); WHITE BLOOD COUNT 10.7 10^3/uL (4.3-11.0)
[2023-05-11 05:38] LABS: HEMOGLOBIN 4.5 g/dL (11.5-16.0)
[2023-05-11 05:39] LABS: HEMATOCRIT 14 % (35-52)
--- NOTE | 2023-05-11 06:36 | Tele-ICU Consult ---
History of Present Illness History of Present Illness Date Seen by Provider: May 11, 2023 Time Seen by Provider: 06:34 Reason for Visit: Suspected GI bleed History of Present Illness 77 yo F in MICU for UGI bleed, Hb dropped to 4.5 from 7.2, Had EGD which showed multiple duodenal ulcers, pt is Advent, On IV PPI Allergies and Home Medications Allergies Coded Allergies: codeine (Verified Allergy, Unknown, 10/31/17) Home Medications Ascorbic Acid/Ascorbate Sodium 500 Mg Tab.chew, 500 MG PO DAILY, (Reported) Aspirin 500 Mg Tablet.dr, 500 MG PO Q8H PRN for PAIN-MILD (1-4), (Reported) D-Mannose 500 Mg Capsule, 500 MG PO DAILY, (Reported) Losartan Potassium 50 Mg Tablet, 50 MG PO HS, (Reported) Nystatin 100,000 Unit/Ml Oral.susp, 2 ML PO BID, (Reported) SWISH AND SPIT FILLED 04-15-2023 #84ML/21 DAY SUPPLY Past Medical/Social/Family Hx Patient Social History Tobacco Use?: No Use of E-Cig and/or Vaping dev: No Substance use?: No Alcohol Use?: No Pt stated abuse/neglect: No Immunizations Up To Date Influenza Vaccine Up-to-Date: No; Not Current Tetanus Booster (TDap): Unknown Hepatitis A: No Hepatitis B: No TB Skin Test: None Date of Pneumonia Vaccine: Jul 14, 2012 Current Status Advance Directives: No Communicates: Verbally Primary Language: Tuvaluan Preferred Spoken Language: Tuvaluan Is interpretation needed?: No Implanted or Applied Medical D: Stents Family Medical History Family Hx: PT WAS ADMITTED HERE 04/20-04/22 FOR SEPTIC SHOCK DUE TO BACTEREMIA AND UTI. WAS FOUND TO HAVE URETERAL STONE AND TRANSFERRED TO SHE HAD URETERAL STENT PLACED AT AND SHE CURRENTLY HAS INDWELLING VALENZUELA CATHETER SHE WAS THEN PLACED AT [facility] IN [place], [place]--AFFILIATED WITH --ON 05/01/23 SHE JUST GOT HOME Friday05/09/23 FROM THERE DX PER PAPERWORK FROM [facility]ENT [facility] ADMIT: 04/22/23-05/01/23, THEN [facility] 05/01-05/08/23 -SEPTIC SHOCK--SHE WAS ON PRESSORS -ENCEPHALOPATHY -ACUTE HYPOXEMIC RESPIRATORY FAILURE--SHE REQUIRED INTUBATION. EXTUBATED 04/23/23 -BILATERAL PLEURAL EFFUSIONS -TACHYCARDIA -RLL PNEUMONIA -UTI -BACTEREMIA -ATRIAL FIBRILLATION WITH RVR--DEVELOPED 04/23/23 -SYSTOLIC DYSFUNCTION -CHF -NSTEMI -LBBB -RIGHT URETERAL STONE WITH RIGHT URETERAL STENT 04/23/23--VALENZUELA PLACED FOR POOR BLADDER EMPTYING Review of Systems Constitutional: see HPI EENTM: see HPI Respiratory: see HPI Cardiovascular: see HPI Gastrointestinal: see HPI Genitourinary: see HPI Musculoskeletal: see HPI Skin: see HPI Psychiatric/Neurological: See HPI Focused Exam Height, Weight, BMI Height: 5'4.00" Weight: 140lbs. oz. 63.502699zm; 25.91 BMI Method:Stated Exam Exam Patient acknowledged, consented, and participated in this virtual visit which was conducted using real time audio/video Vital Signs Date Time Temp Pulse Resp B/P (MAP) Pulse Ox O2 Delivery O2 Flow Rate FiO2 05/11/23 04:04 36.9 98 18 126/60 (82) 96 Nasal Cannula 2.00 05/11/23 00:29 86 05/10/23 23:15 36.5 95 20 118/54 (75) 100 Nasal Cannula 2.00 05/10/23 19:36 36.7 92 18 95/49 (64) 91 Room Air 05/10/23 19:25 Room Air 05/10/23 19:01 95 05/10/23 17:41 85 16 96 Room Air 05/10/23 17:36 85 16 100 OxyMask 10.00 05/10/23 17:31 87 16 99 OxyMask 10.00 05/10/23 15:19 36.8 96 16 112/62 (79) 95 Room Air 05/10/23 12:22 96 05/10/23 11:41 36.8 89 16 115/65 (82) 98 Room Air 05/10/23 08:45 98 05/10/23 07:45 Room Air 05/10/23 07:42 36.8 88 16 112/63 (79) 99 Room Air 05/10/23 07:17 84 18 114/57 95 I & O 05/11/23 06:59 Intake Total 1806.25 ml Output Total 1750 ml Balance 56.25 ml Height & Weight Height: 5'4.00" Weight: 140lbs. oz. 63.926200dt; 25.91 BMI Method:Stated General Appearance: No Apparent Distress, WD/WN HEENT: PERRL/EOMI, Pharynx Normal Respiratory: Lungs Clear, No Respiratory Distress Cardiovascular: Regular Rate, Rhythm, No Murmur Capillary Refill: Less Than 3 Seconds Peripheral Pulses: 2+ Dorsalis Pedis (R), 2+ Left Dors-Pedis (L), 2+ Radial Pulses (R), 2+ Radial Pulses (L) Gastrointestinal: normal bowel sounds, non tender, soft, no organomegaly, no pulsatile mass Extremity: Normal Inspection, No Pedal Edema Neurologic/Psychiatric: Alert, Normal Mood/Affect, Motor Weakness Skin: Warm/Dry, Pallor Results Lab Laboratory Tests 05/10/23 02:55 05/10/23 09:12 05/10/23 15:33 05/11/23 04:52 Assessment/Plan Assessment/Plan UGI bleed, will continue to monitor Hb, IV PPI Critical Care: Critically Ill Patient Time spent with patient (mins): 25 KEYA ANN MD May 11, 2023 06:36
--- NOTE | 2023-05-11 07:16 | Progress Note - Surgery ---
MANINDER DILLARD 05/11/23 0716: Subjective Date Seen by a Provider: May 11, 2023 Time Seen by a Provider: 06:50 Subjective/Events-last exam Patient states that she feels well and is not experiencing any pain. Was just transferred to ICU around 7 am. Urine output for the last 12 hours was 0.42 ml/kg/hr. Currently NPO. Looks pale and sickly. Denies any fever, chills, nausea, vomiting, dizziness, weakness. Review of Systems General: No Chills, No Night Sweats Pulmonary: No Dyspnea, No Cough Cardiovascular: No: Chest Pain, Edema Gastrointestinal: No: Nausea, Vomiting, Abdominal Pain Genitourinary: No Dysuria, No Frequency Musculoskeletal: No: neck pain, shoulder pain Neurological: No: Weakness, Confusion Objective Exam Vital Signs Date Time Temp Pulse Resp B/P (MAP) Pulse Ox O2 Delivery O2 Flow Rate FiO2 05/11/23 06:48 36.9 98 121/58 (79) Nasal Cannula 2.00 05/11/23 06:45 96 Nasal Cannula 2.00 05/11/23 04:04 36.9 98 18 126/60 (82) 96 Nasal Cannula 2.00 05/11/23 00:29 86 05/10/23 23:15 36.5 95 20 118/54 (75) 100 Nasal Cannula 2.00 05/10/23 19:36 36.7 92 18 95/49 (64) 91 Room Air 05/10/23 19:25 Room Air 05/10/23 19:01 95 05/10/23 17:41 85 16 96 Room Air 05/10/23 17:36 85 16 100 OxyMask 10.00 05/10/23 17:31 87 16 99 OxyMask 10.00 05/10/23 15:19 36.8 96 16 112/62 (79) 95 Room Air 05/10/23 12:22 96 05/10/23 11:41 36.8 89 16 115/65 (82) 98 Room Air 05/10/23 08:45 98 05/10/23 07:45 Room Air 05/10/23 07:42 36.8 88 16 112/63 (79) 99 Room Air 05/10/23 07:17 84 18 114/57 95 I & O 05/11/23 07:00 Intake Total 1806.25 ml Output Total 1750 ml Balance 56.25 ml Capillary Refill : Less Than 3 Seconds General Appearance: No Apparent Distress, WD/WN HEENT: PERRL/EOMI Neck: Non Tender Respiratory: Lungs Clear, No Accessory Muscle Use, No Respiratory Distress Cardiovascular: Regular Rate, Rhythm, No Murmur Peripheral Pulses: 2+ Dorsalis Pedis (R), 2+ Left Dors-Pedis (L), 2+ Radial Pulses (R), 2+ Radial Pulses (L) Gastrointestinal: non tender Extremity: Normal Inspection, No Pedal Edema Neurologic/Psychiatric: Alert, Oriented x3, Normal Mood/Affect, Motor Weakness Skin: Warm/Dry, Pallor Results Lab Laboratory Tests 05/10/23 09:12: Hemoglobin 7.2L, Hematocrit 23L 05/10/23 09:19: 05/10/23 15:33: Hemoglobin 5.5#*L 05/11/23 04:52: Hemoglobin 4.5*L, Hematocrit 14*L, White Blood Count 10.7, Red Blood Count 1.54L , Mean Corpuscular Volume 88, Mean Corpuscular Hemoglobin 29, Mean Corpuscular Hemoglobin Concent 33, Red Cell Distribution Width 13.6, Platelet Count 283, Mean Platelet Volume 10.0, Immature Granulocyte % (Auto) 1, Neutrophils (%) (Auto) 71, Lymphocytes (%) (Auto) 21, Monocytes (%) (Auto) 6, Eosinophils (%) (Auto) 1, Basophils (%) (Auto) 0, Neutrophils # (Auto) 7.6, Lymphocytes # (Auto) 2.2, Monocytes # (Auto) 0.6, Eosinophils # (Auto) 0.1, Basophils # (Auto) 0.0, Immature Granulocyte # (Auto) 0.1, Sodium Level 142, Potassium Level 3.6, Chloride Level 112H, Carbon Dioxide Level 22, Anion Gap 8, Blood Urea Nitrogen 25H, Creatinine 0.66, Estimat Glomerular Filtration Rate 89, BUN/Creatinine Ratio 38, Glucose Level 107H, Calcium Level 8.2L Microbiology 05/10/23 C. difficile GDH Antigen & Toxins - Final, Complete 05/10/23 Urine Culture - Preliminary, Resulted YEAST Assessment/Plan Assessment/Plan Assessment/Plan GI bleed likely upper, possibly ulcer Anemia - 4.5 this morning Afib Penitentiary anticoagulation/antiplatelet Protonix Hold Eliquis & Plavix Will not accept any blood products. NPO Follow hgb EGD showed multiple ulcers Will need rescope if Hgb continues to fall -4.5 this morning -Now 4.4 as of this afternoon MELISSA CALDERÓN DO 05/11/23 1340: Subjective Subjective/Events-last exam Patient not having any pain. Having dark stools. Hgb down to 4.5. Family at bedside. NPO. Denies n/v fever sweats chills shortness of breath or chest pain. Objective Exam General Appearance: Chronically ill HEENT: PERRL/EOMI, Normal ENT Inspection Neck: Non Tender, Supple Respiratory: Chest Non Tender, No Accessory Muscle Use, No Respiratory Distress Cardiovascular: Regular Rate, Rhythm, No JVD Gastrointestinal: non tender, soft Neurologic/Psychiatric: Alert, Oriented x3, Normal Mood/Affect, Motor Weakness Skin: Warm/Dry, Pallor Lymphatic: No Adenopathy Assessment/Plan Assessment/Plan Assessment/Plan GI bleed - upper, duodneal ulcer Anemia - 4.5 this morning Afib Penitentiary anticoagulation/antiplatelet S/p egd with injection of epinephrine to control bleeding duodenal ulcer Protonix Hold Eliquis & Plavix Will not accept any blood products. NPO Follow hgb EGD showed multiple ulcers Will need rescope if Hgb continues to fall -4.5 this morning -Now 4.4 as of this afternoon- stable Decreased IV fluids Discussed may need repeat egd and possilbe surgical intervention if unable to get controlled. High risk of surgical intervention due to anticoagulation and overall condition ALso received Infed and Epoetin Discussed risk of with patient and family which they demonstrate understanding. Supervisory-Addendum Brief Verification & Attestation Participated in pt care: history, MDM, physical Personally performed: exam, history, MDM, supervision of care Care discussed with: Medical Student Procedures: n/a Results interpretation: Verified all documentation Verification and Attestation of Medical Student E/M Service A medical student performed and documented this service in my presence. I reviewed and verified all information documented by the medical student and made modifications to such information, when appropriate. I personally performed the physical exam and medical decision making. Melissa Calderón, May 11, 2023,13:42 MANINDER DILLARD May 11, 2023 07:16 MELISSA CALDERÓN DO May 11, 2023 13:40
[2023-05-11] MEDS: PANTOPRAZOLE INJECTION 40 MG VIAL IV SCH ×2 (08:32→20:43)
[2023-05-11] MEDS ORDERED: CYANOCOBALAMIN 1000 MCG/ML 1 ML VIAL IM ONE (09:30)
[2023-05-11] MEDS ORDERED: FOLIC ACID 5MG/ML 10 ML IV ONE (09:30)
--- NOTE | 2023-05-11 09:31 | Tele-ICU Progress Note ---
Subjective Date Seen by a Provider: May 11, 2023 Time Seen by a Provider: 09:31 Subjective/Events-last exam (Tele-ICU Physician , consultation as per request of PCP Service provided via interactive audio and video telecommunications E-CARE system to a patient admitted to ICU bed in [facility]. Available chart/ vitals / labs / Images reviewed H&P is from ER notes Patient's information available about PMH, Shx, Fhx allergy reviewed inEMR. ROS as per chart and RN report Now in ICU, hemodynamically stable Video assessment done using teleICU camera, rest of exam as per RN Discussed with RN. Hospital course: Recent UTI sepsis, septic shock due to kidney stone, s/p ureteral stent, (05/10) 77F:- UGIB>- EGD 04/30 -= Duodenal ucers- ( Jehova's W A/P Acute upper GI bleeding, ABLA ON Chronic anticoagulation - EGD 04/30 -= Duodenal ucers reported - no full report available now -KCentra given -Plavix and Eliquis stopped - IV PPI - Hb stable , low - to monitor -No blood Tx allowed for Pt's Jehova's Whitness A fib - rate controled] - OFF Eliquis Nephrolithiasis with RECENT septic stone and hydronephrosis s/p ureteral stent in Chronic anticoagulation - reversed with Kcentra UA ? has gregorio for few weeks - ? colonization - abx started - to follow , also indications for forlw? Possible recent type II non-STEMI, on Plavix - as per cards Records from are pending need to adress code / resuciotation Lines : , (Central Line Necessity Reviewed) Gregorio: + gregorio in place , from [place] ->rechab-> to home OG: Nutrition: Analgesia: Anxiety/ delirium VTE Prophylaxis: scd Stress Ulcer Prophylaxis: ppi IV Plans in collaboration with bedside consultants and IM MDs. Discussed with RN to reach out if any questions or concerns A total of 31 minutes of critical care time was devoted to this patient today, required to treat and/or prevent further deterioration of critical care condition ( as above ) . I am remotely monitoring this patient from another state. I am unable to do the bedside exam, and history/physical and pertinent information is taken from other notes in the computer and bedside staff. . Sepsis Event Evaluation Height, Weight, BMI Height: 5'4.00" Weight: 140lbs. oz. 63.385421xd; 25.91 BMI Method:Stated Exam Exam Patient acknowledged, consented, and participated in this virtual visit which was conducted using real time audio/video Vital Signs Date Time Temp Pulse Resp B/P (MAP) Pulse Ox O2 Delivery O2 Flow Rate FiO2 05/11/23 09:00 97 12 104/51 (69) 93 Room Air 05/11/23 08:00 93 9 115/52 (75) 94 Room Air 05/11/23 07:54 36.7 Room Air 05/11/23 07:00 97 13 112/54 (79) 98 05/11/23 07:00 99 05/11/23 06:48 36.9 98 121/58 (79) Nasal Cannula 2.00 05/11/23 06:45 96 Nasal Cannula 2.00 05/11/23 04:04 36.9 98 18 126/60 (82) 96 Nasal Cannula 2.00 05/11/23 00:29 86 05/10/23 23:15 36.5 95 20 118/54 (75) 100 Nasal Cannula 2.00 05/10/23 19:36 36.7 92 18 95/49 (64) 91 Room Air 05/10/23 19:25 Room Air 05/10/23 19:01 95 05/10/23 17:41 85 16 96 Room Air 05/10/23 17:36 85 16 100 OxyMask 10.00 05/10/23 17:31 87 16 99 OxyMask 10.00 05/10/23 15:19 36.8 96 16 112/62 (79) 95 Room Air 05/10/23 12:22 96 05/10/23 11:41 36.8 89 16 115/65 (82) 98 Room Air I & O 05/11/23 06:59 Intake Total 1806.25 ml Output Total 1750 ml Balance 56.25 ml Height & Weight Height: 5'4.00" Weight: 140lbs. oz. 63.666709vq; 25.91 BMI Method:Stated General Appearance: No Apparent Distress, WD/WN HEENT: PERRL/EOMI Neck: Non Tender Respiratory: Lungs Clear, No Accessory Muscle Use, No Respiratory Distress Cardiovascular: Regular Rate, Rhythm, No Murmur Capillary Refill: Less Than 3 Seconds Peripheral Pulses: 2+ Dorsalis Pedis (R), 2+ Left Dors-Pedis (L), 2+ Radial Pulses (R), 2+ Radial Pulses (L) Gastrointestinal: non tender Extremity: Normal Inspection, No Pedal Edema Neurologic/Psychiatric: Alert, Oriented x3, Normal Mood/Affect, Motor Weakness Skin: Warm/Dry, Pallor Results Lab Laboratory Tests 05/10/23 02:55 05/10/23 09:12 05/10/23 15:33 05/11/23 04:52 Assessment/Plan Assessment/Plan 1 KASSY NARVAEZ MD May 11, 2023 09:31
[2023-05-11] MEDS ORDERED: IRON SUCROSE 200 MG/10 ML VIAL IV ONE (11:45)
[2023-05-11] MEDS ORDERED: EPOETIN ALFA EPBX 20000 UNIT/ML SC NR (12:00)
[2023-05-11 12:14] LABS: HEMOGLOBIN 4.4 g/dL (11.5-16.0)
--- NOTE | 2023-05-11 14:59 | Cardiology Progress Note ---
Cardiology SOAP Progress Note Subjective: Post EGD with epinephrine injection into the duodenum Objective: I&O/Vital Signs 05/11/23 05/11/23 05/11/23 05/11/23 04:04 06:45 06:48 07:00 Temp 36.9 36.9 Pulse 98 98 99 Resp 18 B/P (MAP) 126/60 (82) 121/58 (79) Pulse Ox 96 96 O2 Delivery Nasal Cannula Nasal Cannula Nasal Cannula O2 Flow Rate 2.00 2.00 2.00 05/11/23 05/11/23 05/11/23 05/11/23 07:00 07:54 08:00 08:00 Temp 36.7 Pulse 97 93 Resp 13 9 B/P (MAP) 112/54 (79) 115/52 (75) Pulse Ox 98 94 95 O2 Delivery Room Air Room Air Room Air 05/11/23 05/11/23 05/11/23 05/11/23 09:00 10:00 11:00 12:00 Pulse 97 93 89 Resp 12 20 B/P (MAP) 104/51 (69) 111/56 (77) 98/42 (64) Pulse Ox 93 96 95 O2 Delivery Room Air Room Air Room Air Room Air 05/11/23 05/11/23 05/11/23 05/11/23 12:00 12:08 12:27 13:00 Temp 37.1 Pulse 93 94 96 Resp 12 B/P (MAP) 116/53 (72) 123/43 (69) Pulse Ox 100 80 O2 Delivery Room Air Nasal Cannula Nasal Cannula O2 Flow Rate 2.00 2.00 05/11/23 14:00 Pulse 89 Resp 15 B/P (MAP) 122/52 (80) Pulse Ox 97 O2 Delivery Nasal Cannula O2 Flow Rate 2.00 05/11/23 00:00 Intake Total 1706.25 ml Output Total 1400 ml Balance 306.25 ml Weight (Pounds): 140 Weight (Calculated Kilograms): 63.156126 Constitutional: AAO x 3 Respiratory: lungs clear to auscultation Cardiovascular: regular rate-rhythm; No diastolic murmur, No systolic murmur Neurologic/Psychiatric: no motor/sensory deficits, alert, normal mood/affect, oriented x 3 Results/Procedures: Labs Laboratory Tests 05/10/23 15:33: Hemoglobin 5.5#*L 05/11/23 04:52: Hemoglobin 4.5*L, White Blood Count 10.7, Red Blood Count 1.54L, Hematocrit 14*L , Mean Corpuscular Volume 88, Mean Corpuscular Hemoglobin 29, Mean Corpuscular Hemoglobin Concent 33, Red Cell Distribution Width 13.6, Platelet Count 283, Mean Platelet Volume 10.0, Immature Granulocyte % (Auto) 1, Neutrophils (%) (Auto) 71, Lymphocytes (%) (Auto) 21, Monocytes (%) (Auto) 6, Eosinophils (%) (Auto) 1, Basophils (%) (Auto) 0, Neutrophils # (Auto) 7.6, Lymphocytes # (Auto) 2.2, Monocytes # (Auto) 0.6, Eosinophils # (Auto) 0.1, Basophils # (Auto) 0.0, Immature Granulocyte # (Auto) 0.1, Sodium Level 142, Potassium Level 3.6, Chloride Level 112H, Carbon Dioxide Level 22, Anion Gap 8, Blood Urea Nitrogen 25H, Creatinine 0.66, Estimat Glomerular Filtration Rate 89, BUN/Creatinine Ratio 38, Glucose Level 107H, Calcium Level 8.2L 05/11/23 12:00: Hemoglobin 4.4*L, Hematocrit 13*L Microbiology 05/10/23 Stool Culture - Preliminary, Resulted 05/10/23 Urine Culture - Final, Complete [place] albicans A/P: Assessment/Dx: Likely lower GI bleeding, Jehovah witness, Recent UTI sepsis, septic shock due to kidney stone, s/p ureteral stent, Possible recent episode of atrial fibrillation, on Eliquis. Possible recent type II non-STEMI, on Plavix. Records from are pending Plan: GI bleeding, s/p EGD today with epinephrine injection given by Dr. Calderón in the duodenum. Severe anemia. Jehovah witness, Recent UTI sepsis, septic shock due to kidney stone, s/p ureteral stent, Possible recent episode of atrial fibrillation, on Eliquis. Possible recent type II non-STEMI, on Plavix. Records from are pending I discussed at length with the patient and recommended that we will have to stop both Plavix and Eliquis. She understands the risk of stopping both Plavix and Eliquis. Currently the patient is in sinus rhythm. Awaiting records from to figure out the etiology for both Plavix and Eliquis. I do not know if any coronary evaluation was done at . Patient denies having any significant cardiac testing at especially coronary angiography. She does share with me that she may have had an episode of atrial fibrillation therefore she was put on Eliquis. She is not sure about the reason of Plavix. Flex PARKS MD May 11, 2023 14:59
--- NOTE | 2023-05-11 16:43 | Progress Note - Hospitalist ---
Subjective HPI/CC On Admission Date Seen by Provider: May 11, 2023 Time Seen by Provider: 10:50 Silke Hansen is a 77 year old female with PMH HTN, AFib on Eliquis, HLD, nephrolithiasis with septic stone and hydronephrosis s/p ureteral stent, who presented with melena. She reports having black stools yesterday. She denies abdominal pain. She denies nausea and vomiting. She is continuing to have black stools this morning. 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 She was admitted earlier this month with septic shock due to Klebsiella oxytoca UTI and bacteremia. She was found to have an obstructing ureteral stone and was transferred to [facility]. She required intubation. She had the stone removed and a ureteral stent placed. She had issues with AFib with RVR and was started on Eliquis. She had an NSTEMI, presumably type II due to shock. She was started on Plavix at that time as well. Subjective/Events-last exam She had an episode of melena this morning. She denies lightheadedness and dizziness. She denies shortness of breath. She denies chest pain. She has no complaints. Objective Exam Vital Signs Vital Signs Date Time Temp Pulse Resp B/P (MAP) Pulse Ox O2 Delivery O2 Flow Rate FiO2 05/11/23 16:00 88 14 101/42 (56) 90 Nasal Cannula 2.00 05/11/23 15:58 37.2 Capillary Refill : Less Than 3 Seconds General Appearance: No Apparent Distress, WD/WN Respiratory: Lungs Clear, No Respiratory Distress Cardiovascular: Regular Rate, Rhythm, No Murmur Gastrointestinal: Normal Bowel Sounds, Non Tender, Soft Extremity: Normal Inspection, Pedal Edema Neurologic/Psychiatric: Alert, Normal Mood/Affect Skin: Warm/Dry, Pallor Results/Procedures Lab Laboratory Tests 05/11/23 04:52 05/11/23 12:00 Patient resulted labs reviewed. Imaging: Reviewed Imaging Report Assessment/Plan Assessment and Plan Assess & Plan/Chief Complaint Acute upper GI bleeding Duodenal ulcer with hemorrhage Acute blood loss anemia Chronic anticoagulation Paroxysmal AFib Presybeterian Hgb 4 this morning Surgery following EGD 05/10 with duodenal ulcer bleed, s/p epinephrine IV PPI Hold Eliquis and Plavix Cardiology following s/p KCentra 05/10 s/p Infed 05/10 B12 injection x2 Folic acid daily Venofer ordered Erythropoetin ordered Refusing blood products due to being Presybeterian Goals of care discussion/counseling Discussed poor prognosis if continued bleeding with patient and Patient elects to transition to DNR Ureteral stent present Nephrolithiasis UTI Urine culture with yeast Continue Cefepime for now, consider stopping tomorrow if no bacterial growth HTN HLD Hold home meds DVT prophylaxis: SCDs only due to GI bleed Critical Care Critically Ill Patient Diagnosis/Problems Diagnosis/Problems (1) Duodenal ulcer with hemorrhage Status: Acute (2) Acute upper GI bleeding Status: Acute (3) ABLA (acute blood loss anemia) Status: Acute (4) Chronic anticoagulation Status: Chronic (5) Paroxysmal atrial fibrillation Status: Chronic (6) HTN (hypertension) Status: Chronic (7) HLD (hyperlipidemia) Status: Chronic (8) Ureteral stent present Status: Chronic (9) Refusal of blood transfusions as patient is Holiness Status: Acute (10) Goals of care, counseling/discussion Status: Acute STEVE CHANEL MD May 11, 2023 16:43
[2023-05-11] MEDS: TAMSULOSIN 0.4 MG (FLOMAX) CAP PO SCH (17:29)
[2023-05-12] MEDS: CEFEPIME INJECTION 1,000 MG in NS (IVPB) 50 ML 50 ML IV SCH (03:19)
[2023-05-12] MEDS ORDERED: NS IV 500 ML 500 ML IV PRN (03:45)
[2023-05-12 05:39] LABS: BASOPHILS % (AUTO) 0 % (0-10); EOSINOPHILS # (AUTO) 0.2 10^3/uL (0.0-0.3); EOSINOPHILS % (AUTO) 2 % (0-10); LYMPHOCYTES # (AUTO) 2.1 10^3/uL (1.0-4.0); LYMPHOCYTES % (AUTO) 20 % (12-44); MEAN CORPUSCULAR HEMOGLOBIN 29 pg (25-34); MEAN CORPUSCULAR HGB CONC 33 g/dL (32-36); MEAN CORPUSCULAR VOLUME 90 fL (80-99); MEAN PLATELET VOLUME 10.3 fL (9.0-12.2); MONOCYTES # (AUTO) 0.7 10^3/uL (0.0-1.0); MONOCYTES % (AUTO) 7 % (0-12); NEUTROPHILS # (AUTO) 7.3 10^3/uL (1.8-7.8); NEUTROPHILS % (AUTO) 70 % (42-75); PLATELET COUNT 265 10^3/uL (130-400); WHITE BLOOD COUNT 10.4 10^3/uL (4.3-11.0)
[2023-05-12 05:42] LABS: HEMATOCRIT 13 % (35-52); HEMOGLOBIN 4.2 g/dL (11.5-16.0)
[2023-05-12 05:47] LABS: ALBUMIN 2.5 GM/DL (3.2-4.5); BILIRUBIN,TOTAL 0.3 MG/DL (0.1-1.0); CREATININE SERUM 0.6 MG/DL (0.60-1.30); MAGNESIUM 1.9 MG/DL (1.6-2.4); PHOSPHORUS 3.2 MG/DL (2.3-4.7); POTASSIUM 3.6 MMOL/L (3.6-5.0); TOTAL PROTEIN 4.6 GM/DL (6.4-8.2)
[2023-05-12] MEDS: MAGNESIUM 1 GM/100 ML IVPB 100 ML IV SCH ×2 (05:51→06:02)
[2023-05-12] MEDS: POTASSIUM CL 10MEQ/50ML IVPB 50 ML IV SCH ×4 (05:51→08:04)
[2023-05-12] MEDS: POTASSIUM CHLORIDE 20 MEQ TABLET PO SCH (05:51)
--- NOTE | 2023-05-12 06:37 | Progress Note - Surgery ---
MANINDER DILLARD 05/12/23 0637: Subjective Date Seen by a Provider: May 12, 2023 Time Seen by a Provider: 06:20 Subjective/Events-last exam Patient stated that she was doing well, but she looks pale and sickly. She is having no abdominal pain and no pain in general. Currently NPO. Denies any fever, chills, nausea, vomiting, headache. Nurse reported that she had a BM last night with no blood. Urine output for past 12 hours was 0.78 ml/kg/hr. Review of Systems General: No Chills, No Night Sweats; Fatigue HEENT: No Head Aches, No Visual Changes Pulmonary: No Dyspnea, No Cough Cardiovascular: No: Chest Pain, Edema Gastrointestinal: No: Nausea, Vomiting, Abdominal Pain Genitourinary: No Dysuria, No Frequency Musculoskeletal: No: neck pain, shoulder pain Neurological: Weakness; No: Confusion Objective Exam Vital Signs Date Time Temp Pulse Resp B/P (MAP) Pulse Ox O2 Delivery O2 Flow Rate FiO2 05/12/23 04:00 93 21 98/45 (66) 96 Nasal Cannula 2.00 05/12/23 03:15 97 Nasal Cannula 2.00 05/12/23 03:15 96 18 97/48 (70) 98 Nasal Cannula 2.00 05/12/23 03:00 98 24 94/43 (56) 96 Nasal Cannula 2.00 05/12/23 02:00 101 22 93/45 (61) 96 Nasal Cannula 2.00 05/12/23 01:00 98 05/12/23 01:00 98 13 81/45 (65) 96 Nasal Cannula 2.00 05/12/23 00:45 99 18 97/45 (65) 96 Nasal Cannula 2.00 05/12/23 00:30 94 27 94/45 (62) 98 Nasal Cannula 2.00 05/12/23 00:15 98 27 95/46 (69) 96 Nasal Cannula 2.00 05/12/23 00:00 99 26 104/53 (70) 996 Nasal Cannula 2.00 05/11/23 23:30 95/43 (60) 05/11/23 23:30 100 Nasal Cannula 2.00 05/11/23 23:28 37.2 94 18 88/44 (59) 99 Nasal Cannula 2.00 05/11/23 22:30 96 23 92/53 (66) 98 Nasal Cannula 2.00 05/11/23 21:00 92 25 100/52 (68) 99 Nasal Cannula 2.00 05/11/23 20:15 96 13 105/50 (68) 100 Nasal Cannula 2.00 05/11/23 19:52 37.1 05/11/23 19:20 97 Nasal Cannula 2.00 05/11/23 19:00 97 19 114/49 (70) 97 Nasal Cannula 2.00 05/11/23 19:00 99 05/11/23 18:00 93 9 122/55 (68) 95 Nasal Cannula 2.00 05/11/23 17:00 94 18 114/61 (84) 97 Nasal Cannula 2.00 05/11/23 16:00 88 14 101/42 (56) 90 Nasal Cannula 2.00 05/11/23 16:00 97 Nasal Cannula 2.00 05/11/23 15:58 37.2 05/11/23 15:00 91 18 114/32 (63) 98 Nasal Cannula 2.00 05/11/23 14:00 89 15 122/52 (80) 97 Nasal Cannula 2.00 05/11/23 13:00 96 123/43 (69) 80 Nasal Cannula 2.00 05/11/23 12:27 94 05/11/23 12:08 37.1 Nasal Cannula 2.00 05/11/23 12:00 93 12 116/53 (72) 100 Room Air 05/11/23 12:00 95 Room Air 05/11/23 11:00 89 98/42 (64) 96 Room Air 05/11/23 10:00 93 20 111/56 (77) Room Air 05/11/23 09:00 97 12 104/51 (69) 93 Room Air 05/11/23 08:00 95 Room Air 05/11/23 08:00 93 9 115/52 (75) 94 Room Air 05/11/23 07:54 36.7 Room Air 05/11/23 07:00 97 13 112/54 (79) 98 05/11/23 07:00 99 05/11/23 06:48 36.9 98 121/58 (79) Nasal Cannula 2.00 05/11/23 06:45 96 Nasal Cannula 2.00 I & O 05/12/23 07:00 Intake Total 1110 ml Output Total 1625 ml Balance -515 ml Capillary Refill : Less Than 3 Seconds General Appearance: No Apparent Distress, WD/WN HEENT: PERRL/EOMI, Normal ENT Inspection Neck: Non Tender, Supple Respiratory: Lungs Clear, No Accessory Muscle Use, No Respiratory Distress Cardiovascular: Regular Rate, Rhythm, No Murmur Peripheral Pulses: 2+ Dorsalis Pedis (R), 2+ Left Dors-Pedis (L), 2+ Radial Pulses (R), 2+ Radial Pulses (L) Gastrointestinal: non tender, soft Extremity: Normal Inspection, Pedal Edema Neurologic/Psychiatric: Alert, Normal Mood/Affect, Depressed Affect Skin: Warm/Dry, Pallor Results Lab Laboratory Tests 05/11/23 12:00: Hemoglobin 4.4*L, Hematocrit 13*L 05/12/23 04:14: Hemoglobin 4.2*L, Hematocrit 13*L, White Blood Count 10.4, Red Blood Count 1.44L , Mean Corpuscular Volume 90, Mean Corpuscular Hemoglobin 29, Mean Corpuscular Hemoglobin Concent 33, Red Cell Distribution Width 13.9, Platelet Count 265, Mean Platelet Volume 10.3, Immature Granulocyte % (Auto) 1, Neutrophils (%) (Auto) 70, Lymphocytes (%) (Auto) 20, Monocytes (%) (Auto) 7, Eosinophils (%) (Auto) 2, Basophils (%) (Auto) 0, Neutrophils # (Auto) 7.3, Lymphocytes # (Auto) 2.1, Monocytes # (Auto) 0.7, Eosinophils # (Auto) 0.2, Basophils # (Auto) 0.0, Immature Granulocyte # (Auto) 0.1, Sodium Level 142, Potassium Level 3.6, Chloride Level 113H, Carbon Dioxide Level 19L, Anion Gap 10, Blood Urea Nitrogen 15, Creatinine 0.60, Estimat Glomerular Filtration Rate 91, BUN/Creatinine Ratio 25, Glucose Level 81, Calcium Level 8.0L, Corrected Calcium 9.2, Phosphorus Level 3.2, Magnesium Level 1.9, Total Bilirubin 0.3, Aspartate Amino Transf (AST/SGOT) 19, Alanine Aminotransferase (ALT/SGPT) 11, Alkaline Phosphatase 20L, Total Protein 4.6L, Albumin 2.5L Microbiology 05/10/23 Stool Culture - Preliminary, Resulted 05/10/23 Urine Culture - Final, Complete [place] albicans Assessment/Plan Assessment/Plan Assessment/Plan GI bleed - upper, duodneal ulcer Anemia - 4.2 this morning Afib Retirement anticoagulation/antiplatelet S/p egd with injection of epinephrine to control bleeding duodenal ulcer Hold Eliquis & Plavix Will not accept any blood products. Follow hgb EGD showed multiple ulcers Will need rescope if Hgb continues to fall -Hgb is 4.2 this morning - stable MAT CALDERÓN DO 05/12/231813: Subjective Subjective/Events-last exam Patient weak. NPO. Feeling okay. Hgb 4.2 from 4.4 No abdominal pain. Denies n/v fever sweats chills shortness of breath or chest pain. Objective Exam General Appearance: No Apparent Distress, Chronically ill HEENT: PERRL/EOMI, Normal ENT Inspection Neck: Non Tender, Supple Respiratory: Chest Non Tender, No Accessory Muscle Use, No Respiratory Distress Cardiovascular: Regular Rate, Rhythm, No JVD Gastrointestinal: non tender, soft Extremity: Normal Inspection, Pedal Edema Neurologic/Psychiatric: Alert, Oriented x3, Normal Mood/Affect, Depressed Affect Skin: Cool, Pallor Lymphatic: No Adenopathy Assessment/Plan Assessment/Plan Assessment/Plan GI bleed - upper, duodneal ulcer Anemia - 4.2 this morning Afib Retirement anticoagulation/antiplatelet S/p egd with injection of epinephrine to control bleeding duodenal ulcer Hold Eliquis & Plavix Will not accept any blood products. Follow hgb PPI EGD showed multiple ulcers Will need rescope if Hgb continues to fall -Hgb is 4.2 this morning - stable If hgb stable tomorrow will start clears. Supervisory-Addendum Brief Verification & Attestation Participated in pt care: history, MDM, physical Personally performed: exam, history, MDM, supervision of care Care discussed with: Medical Student Procedures: n/a Results interpretation: Verified all documentation Verification and Attestation of Medical Student E/M Service A medical student performed and documented this service in my presence. I reviewed and verified all information documented by the medical student and made modifications to such information, when appropriate. I personally performed the physical exam and medical decision making. Mat Calderón, May 12, 2023,18:13 MANINDER DILLARD May 12, 2023 06:37 MAT CALDERÓN DO May 12, 2023 18:14
[2023-05-12] MEDS: PANTOPRAZOLE INJECTION 40 MG VIAL IV SCH ×2 (08:05→21:02)
[2023-05-12] MEDS: FOLIC ACID 5MG/ML 10 ML IV SCH (08:07)
[2023-05-12] MEDS: LACTATED RINGERS 1,000 ML 1,000 ML IV SCH (08:41)
--- NOTE | 2023-05-12 09:33 | Cardiology Progress Note ---
Subjective Date Seen by Provider: May 12, 2023 Time Seen by Provider: 09:30 Subjective/Events-last exam Patient was seen at bedside, laying down comfortably, no new complain Review of Systems General: No Chills, No Night Sweats; Fatigue; No Malaise, No Appetite, No Other HEENT: No Head Aches, No Visual Changes, No Eye Pain, No Ear Pain, No Dysphasia, No Sinus Congestion, No Post Nasal Drip, No Sore Throat, No Other Pulmonary: No Dyspnea, No Cough, No Pleuritic Chest Pain, No Other Cardiovascular: No: Chest Pain, Palpitations, Orthopnea, Paroxysmal Noc. Dyspnea, Edema, Lt Headedness, Other Objective-Cardiology Exam Last Set of Vital Signs Vital Signs 05/12/23 05/12/23 08:24 09:00 Temp 36.2 Pulse 96 Resp 19 B/P (MAP) 101/48 (65) Pulse Ox 100 O2 Delivery Nasal Cannula O2 Flow Rate 2.00 I&O Intake and Output 05/12/23 00:00 Intake Total 1110 ml Output Total 1300 ml Balance -190 ml Intake Oral 10 ml IV Total 1100 ml Output Urine Total 1300 ml # Bowel Movements 1 General: Alert, Oriented X3, Cooperative HEENT: Atraumatic, PERRLA Neck: Supple, No JVD, No Thyromegaly Lungs: Clear to Auscultation, Normal Air Movement Heart: Regular Rate, Normal S1, Normal S2, No Murmurs Abdomen: Normal Bowel Sounds, Soft, No Tenderness, No Hepatosplenomegaly, No Masses Extremities: No Clubbing, No Cyanosis, No Edema, Normal Pulses, No Tenderness/Swelling Skin: No Rashes, No Breakdown, No Significant Lesion Neuro: Normal Gait, Normal Speech, Strength at 5/5 X4 Ext, Normal Tone, Sensation Intact Psych/Mental Status: Mental Status NL, Mood NL Results Lab Laboratory Tests 05/11/23 12:00 05/12/23 04:14 A/P-Cardiology Admission Diagnosis Severe anemia GI bleed Paroxysmal atrial fibrillation Hypertension Assessment/Plan Severe anemia, patient is Jehovah witness Currently off anticoagulation, Managed by primary care team Acute GI bleed, duodenal ulcer with hemorrhage, Status post epinephrine injection with EGD Paroxysmal atrial fibrillation, currently in sinus rhythm Was maintained on Eliquis which was discontinued Questionable type II myocardial infarction at , non-ST PR Has been maintained on Plavix which was discontinued, continue to monitor closely History of urethral stents with nephrolithiasis. Hypertension, monitor blood pressure Hyperlipidemia, monitor lipids DAIJA ESPARZA MD May 12, 2023 09:33
--- NOTE | 2023-05-12 10:03 | Tele-ICU Progress Note ---
Subjective Date Seen by a Provider: May 12, 2023 Time Seen by a Provider: 10:03 Subjective/Events-last exam ... (Tele-ICU Physician , Progress Note ) Service provided via interactive audio and video telecommunications E-CARE system to a patient admitted to ICU bed in [facility]. Patient is seen today due to persistent need of ICU care Available chart/ vitals / labs / Images reviewed Video assessment done using teleICU camera, rest of exam as per RN Discussed with RN Events overnight : Afebrile hemodynamically stable Respiratory - 2L I/O = + Drips: LR 100 Pressors- no Hospital course: Recent UTI sepsis, septic shock due to kidney stone, s/p ureteral stent, (05/10) 77F:- UGIB>- EGD 04/30 -= Duodenal ucers- ( Jehova's W A/P Acute upper GI bleeding, ABLA ON Chronic anticoagulation - EGD 04/30 -= Duodenal ucers reported - no full report available now -KCentra given -Plavix and Eliquis stopped - IV PPI - Hb stable , low - to monitor -No blood Tx allowed for Pt's Jehova's Whitness A fib - rate controled. seems in sinus - OFF Eliquis Nephrolithiasis with RECENT septic stone and hydronephrosis s/p ureteral stent in Chronic anticoagulation - reversed with Kcentra UA ? has gregorio for few weeks - ? colonization - gregorio replaced 05/11 - abx started cefepime - to follow ,., carlos in urine Possible recent type II non-STEMI, on Plavix- OFF - as per cards Hypoxia - on 2 l o2 Records from are pending DNR Lines : , (Central Line Necessity Reviewed) Gregorio: + gregorio in place , from [place] ->rechab-> to home OG: Nutrition: npo Analgesia: Anxiety/ delirium VTE Prophylaxis: scd Stress Ulcer Prophylaxis: ppi IV Plans in collaboration with bedside consultants and IM MDs. Discussed with RN to reach out if any questions or concerns A total of 31 minutes of critical care time was devoted to this patient today, required to treat and/or prevent further deterioration of critical care condition ( as above ) . I am remotely monitoring this patient from another state. I am unable to do the bedside exam, and history/physical and pertinent information is taken from other notes in the computer and bedside staff. . Sepsis Event Evaluation Height, Weight, BMI Height: 5'4.00" Weight: 140lbs. oz. 63.285327qf; 27.28 BMI Method:Stated Exam Exam Patient acknowledged, consented, and participated in this virtual visit which was conducted using real time audio/video Vital Signs Date Time Temp Pulse Resp B/P (MAP) Pulse Ox O2 Delivery O2 Flow Rate FiO2 05/12/23 09:00 96 19 101/48 (65) 100 Nasal Cannula 2.00 05/12/23 08:24 36.2 05/12/23 08:00 96 Nasal Cannula 2.00 05/12/23 08:00 96 25 109/53 (71) 99 Nasal Cannula 2.00 05/12/23 07:00 95 05/12/23 07:00 92 11 109/49 (69) 97 Nasal Cannula 2.00 05/12/23 06:00 97 28 108/48 (82) 96 Nasal Cannula 2.00 05/12/23 05:00 96 21 93/48 (71) 99 Nasal Cannula 2.00 05/12/23 04:00 93 21 98/45 (66) 96 Nasal Cannula 2.00 05/12/23 03:15 97 Nasal Cannula 2.00 05/12/23 03:15 96 18 97/48 (70) 98 Nasal Cannula 2.00 05/12/23 03:00 98 24 94/43 (56) 96 Nasal Cannula 2.00 05/12/23 02:00 101 22 93/45 (61) 96 Nasal Cannula 2.00 05/12/23 01:00 98 05/12/23 01:00 98 13 81/45 (65) 96 Nasal Cannula 2.00 05/12/23 00:45 99 18 97/45 (65) 96 Nasal Cannula 2.00 05/12/23 00:30 94 27 94/45 (62) 98 Nasal Cannula 2.00 05/12/23 00:15 98 27 95/46 (69) 96 Nasal Cannula 2.00 05/12/23 00:00 99 26 104/53 (70) 996 Nasal Cannula 2.00 05/11/23 23:30 95/43 (60) 05/11/23 23:30 100 Nasal Cannula 2.00 05/11/23 23:28 37.2 94 18 88/44 (59) 99 Nasal Cannula 2.00 05/11/23 22:30 96 23 92/53 (66) 98 Nasal Cannula 2.00 05/11/23 21:00 92 25 100/52 (68) 99 Nasal Cannula 2.00 05/11/23 20:15 96 13 105/50 (68) 100 Nasal Cannula 2.00 05/11/23 19:52 37.1 05/11/23 19:20 97 Nasal Cannula 2.00 05/11/23 19:00 97 19 114/49 (70) 97 Nasal Cannula 2.00 05/11/23 19:00 99 05/11/23 18:00 93 9 122/55 (68) 95 Nasal Cannula 2.00 05/11/23 17:00 94 18 114/61 (84) 97 Nasal Cannula 2.00 05/11/23 16:00 88 14 101/42 (56) 90 Nasal Cannula 2.00 05/11/23 16:00 97 Nasal Cannula 2.00 05/11/23 15:58 37.2 05/11/23 15:00 91 18 114/32 (63) 98 Nasal Cannula 2.00 05/11/23 14:00 89 15 122/52 (80) 97 Nasal Cannula 2.00 05/11/23 13:00 96 123/43 (69) 80 Nasal Cannula 2.00 05/11/23 12:27 94 05/11/23 12:08 37.1 Nasal Cannula 2.00 05/11/23 12:00 93 12 116/53 (72) 100 Room Air 05/11/23 12:00 95 Room Air 05/11/23 11:00 89 98/42 (64) 96 Room Air I & O 05/12/23 07:00 Intake Total 1110 ml Output Total 1625 ml Balance -515 ml Height & Weight Height: 5'4.00" Weight: 140lbs. oz. 63.929635sm; 27.28 BMI Method:Stated General Appearance: No Apparent Distress, WD/WN HEENT: PERRL/EOMI, Normal ENT Inspection Neck: Non Tender, Supple Respiratory: Lungs Clear, No Accessory Muscle Use, No Respiratory Distress Cardiovascular: Regular Rate, Rhythm, No Murmur Capillary Refill: Less Than 3 Seconds Peripheral Pulses: 2+ Dorsalis Pedis (R), 2+ Left Dors-Pedis (L), 2+ Radial Pulses (R), 2+ Radial Pulses (L) Gastrointestinal: non tender, soft Extremity: Normal Inspection, Pedal Edema Neurologic/Psychiatric: Alert, Normal Mood/Affect, Depressed Affect Skin: Warm/Dry, Pallor Results Lab Laboratory Tests 05/10/23 15:33 05/11/23 04:52 05/11/23 12:00 05/12/23 04:14 Assessment/Plan Assessment/Plan 1 KASSY NARVAEZ MD May 12, 2023 10:03
--- NOTE | 2023-05-12 11:19 | Progress Note - Hospitalist ---
Subjective HPI/CC On Admission Date Seen by Provider: May 12, 2023 Silke Hansen is a 77 year old female with PMH HTN, AFib on Eliquis, HLD, nephrolithiasis with septic stone and hydronephrosis s/p ureteral stent, who presented with melena. She reports having black stools yesterday. She denies abdominal pain. She denies nausea and vomiting. She is continuing to have black stools this morning. 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 She was admitted earlier this month with septic shock due to Klebsiella oxytoca UTI and bacteremia. She was found to have an obstructing ureteral stone and was transferred to [facility]. She required intubation. She had the stone removed and a ureteral stent placed. She had issues with AFib with RVR and was started on Eliquis. She had an NSTEMI, presumably type II due to shock. She was started on Plavix at that time as well. Subjective/Events-last exam Pt reports doing ok today. RN reports 3 darker stools yesterday but only a smear overnight. Hgb 4.2 today. No new complaints from patietn or concerns from RN. Objective Exam Vital Signs Vital Signs Date Time Temp Pulse Resp B/P (MAP) Pulse Ox O2 Delivery O2 Flow Rate FiO2 05/12/23 10:48 36.1 05/12/23 10:00 87 24 99 Nasal Cannula 2.00 Capillary Refill : Less Than 3 Seconds General Appearance: No Apparent Distress, Chronically ill Respiratory: Lungs Clear, No Respiratory Distress Cardiovascular: Regular Rate, Rhythm, No Murmur Neurologic/Psychiatric: Alert, Oriented x3 Results/Procedures Lab Laboratory Tests 05/11/23 12:00 05/12/23 04:14 Patient resulted labs reviewed. Imaging: Reviewed Imaging Report Assessment/Plan Assessment and Plan Assess & Plan/Chief Complaint Acute upper GI bleeding Duodenal ulcer with hemorrhage Acute blood loss anemia Chronic anticoagulation Paroxysmal AFib Rastafari Hgb 4.2 this morning- stable Surgery following EGD 05/10 with duodenal ulcer bleed, s/p epinephrine IV PPI Hold Eliquis and Plavix Cardiology following s/p KCentra 05/10 s/p Infed 05/10 B12 injection x2 Folic acid daily Venofer Erythropoetin x1 Declines blood products due to being Rastafari Transfer to step down Goals of care discussion/counseling Patient elects DNR Ureteral stent present Nephrolithiasis UTI Urine culture with yeast Continue Cefepime for now, consider stopping tomorrow if no bacterial growth HTN HLD Hold home meds DVT prophylaxis: SCDs only due to GI bleed Critical Care Critically Ill Patient LYLE KNOTT MD May 12, 2023 11:19
[2023-05-12] MEDS ORDERED: CEFEPIME INJECTION 1,000 MG in NS (IVPB) 50 ML 50 ML IV SCH (12:00)
[2023-05-12] MEDS: TAMSULOSIN 0.4 MG (FLOMAX) CAP PO SCH (17:37)
[2023-05-12 20:00] VITALS: BP 103/45
[2023-05-12 20:33] VITALS: BP 116/53
[2023-05-13] VITALS (7 sets, daily range): BP systolic 106–141; BP diastolic 45–74
[2023-05-13 05:42] LABS: BASOPHILS # (AUTO) 0.1 10^3/uL (0.0-0.1); BASOPHILS % (AUTO) 0 % (0-10); EOSINOPHILS # (AUTO) 0.3 10^3/uL (0.0-0.3); EOSINOPHILS % (AUTO) 2 % (0-10); LYMPHOCYTES # (AUTO) 2.6 10^3/uL (1.0-4.0); LYMPHOCYTES % (AUTO) 18 % (12-44); MEAN CORPUSCULAR HEMOGLOBIN 29 pg (25-34); MEAN CORPUSCULAR HGB CONC 31 g/dL (32-36); MEAN CORPUSCULAR VOLUME 93 fL (80-99); MEAN PLATELET VOLUME 10.1 fL (9.0-12.2); MONOCYTES # (AUTO) 0.9 10^3/uL (0.0-1.0); MONOCYTES % (AUTO) 6 % (0-12); NEUTROPHILS # (AUTO) 9.9 10^3/uL (1.8-7.8); NEUTROPHILS % (AUTO) 70 % (42-75); PLATELET COUNT 316 10^3/uL (130-400); WHITE BLOOD COUNT 14.1 10^3/uL (4.3-11.0)
[2023-05-13 05:54] LABS: HEMATOCRIT 17 % (35-52); HEMOGLOBIN 5.2 g/dL (11.5-16.0)
[2023-05-13 05:57] LABS: BILIRUBIN,TOTAL 0.4 MG/DL (0.1-1.0); CALCIUM 8.3 MG/DL (8.5-10.1); CREATININE SERUM 0.63 MG/DL (0.60-1.30); MAGNESIUM 2.4 MG/DL (1.6-2.4); PHOSPHORUS 2.5 MG/DL (2.3-4.7); POTASSIUM 3.7 MMOL/L (3.6-5.0); TOTAL PROTEIN 5.6 GM/DL (6.4-8.2)
[2023-05-13] MEDS: POTASSIUM CHLORIDE 20 MEQ TABLET PO SCH (06:00)
[2023-05-13] MEDS: MAGNESIUM 1 GM/100 ML IVPB 100 ML IV SCH ×2 (06:00→07:23)
--- NOTE | 2023-05-13 06:46 | Progress Note - Surgery ---
MANINDER DILLARD 05/13/23 0646: Subjective Date Seen by a Provider: May 13, 2023 Time Seen by a Provider: 06:42 Subjective/Events-last exam Patient states that she is doing well, but is having a bit of confusion. She says she is having no pain and is feeling fine. Still looks sickly and pale. Hemoglobin is up to 5.2. Nurse reported that she had one BM last night that was black & tarry. Denies fever, chills, chest pain, nausea, vomiting. Review of Systems General: No Chills, No Night Sweats HEENT: No Head Aches, No Visual Changes Pulmonary: No Dyspnea, No Cough Cardiovascular: No: Chest Pain, Edema Gastrointestinal: No: Nausea, Vomiting, Abdominal Pain Genitourinary: No Dysuria, No Frequency Musculoskeletal: No: neck pain, shoulder pain Neurological: Confusion; No: Weakness Objective Exam Vital Signs Date Time Temp Pulse Resp B/P (MAP) Pulse Ox O2 Delivery O2 Flow Rate FiO2 05/13/23 04:39 102 27 121/55 (76) 97 Room Air 05/13/23 01:00 86 05/13/23 00:00 88 14 125/45 (67) 94 Room Air 05/12/23 20:33 87 26 116/53 (86) 95 Room Air 05/12/23 20:00 94 Nasal Cannula 2.00 05/12/23 20:00 37.2 91 24 103/45 (64) 95 Room Air 05/12/23 19:00 95 05/12/23 16:00 36.6 93 21 108/48 (68) 98 05/12/23 16:00 97 Nasal Cannula 2.00 05/12/23 15:00 92 20 109/46 (67) 95 Nasal Cannula 2.00 05/12/23 14:00 94 20 114/52 (72) 97 Nasal Cannula 2.00 05/12/23 13:00 95 23 112/51 (71) 97 Nasal Cannula 2.00 05/12/23 13:00 95 05/12/23 12:00 85 27 110/45 (66) 91 Nasal Cannula 2.00 05/12/23 12:00 98 Nasal Cannula 2.00 05/12/23 11:00 86 30 115/51 (72) 99 Nasal Cannula 2.00 05/12/23 10:48 36.1 05/12/23 10:00 87 24 111/52 (71) 99 Nasal Cannula 2.00 05/12/23 09:00 96 19 101/48 (65) 100 Nasal Cannula 2.00 05/12/23 08:24 36.2 05/12/23 08:00 96 Nasal Cannula 2.00 05/12/23 08:00 96 25 109/53 (71) 99 Nasal Cannula 2.00 05/12/23 07:00 95 05/12/23 07:00 92 11 109/49 (69) 97 Nasal Cannula 2.00 I & O 05/13/23 07:00 Intake Total 1460 ml Output Total 1050 ml Balance 410 ml Capillary Refill : Less Than 3 Seconds General Appearance: No Apparent Distress, Chronically ill HEENT: PERRL/EOMI Respiratory: Chest Non Tender, No Accessory Muscle Use, No Respiratory Distress Cardiovascular: Regular Rate, Rhythm, No JVD Peripheral Pulses: 2+ Dorsalis Pedis (R), 2+ Left Dors-Pedis (L), 2+ Radial Pulses (R), 2+ Radial Pulses (L) Gastrointestinal: non tender, soft Extremity: Normal Inspection, Pedal Edema Neurologic/Psychiatric: Alert, Oriented x3, Normal Mood/Affect, Depressed Affect Skin: Cool, Pallor Results Lab Laboratory Tests 05/13/23 04:36: White Blood Count 14.1H, Red Blood Count 1.78L, Hemoglobin 5.2#*L, Hematocrit 17*L, Mean Corpuscular Volume 93, Mean Corpuscular Hemoglobin 29, Mean Corpuscular Hemoglobin Concent 31L, Red Cell Distribution Width 15.4H, Platelet Count 316, Mean Platelet Volume 10.1, Immature Granulocyte % (Auto) 3, Neutrophils (%) (Auto) 70, Lymphocytes (%) (Auto) 18, Monocytes (%) (Auto) 6, Eosinophils (%) (Auto) 2, Basophils (%) (Auto) 0, Neutrophils # (Auto) 9.9H, Lymphocytes # (Auto) 2.6, Monocytes # (Auto) 0.9, Eosinophils # (Auto) 0.3, Basophils # (Auto) 0.1, Immature Granulocyte # (Auto) 0.5H, Sodium Level 141, Potassium Level 3.7, Chloride Level 109H, Carbon Dioxide Level 19L, Anion Gap 13, Blood Urea Nitrogen 12, Creatinine 0.63, Estimat Glomerular Filtration Rate 90, BUN/Creatinine Ratio 19, Glucose Level 88, Calcium Level 8.3L, Corrected Calcium 9.1, Phosphorus Level 2.5, Magnesium Level 2.4, Total Bilirubin 0.4, Aspartate Amino Transf (AST/SGOT) 24, Alanine Aminotransferase (ALT/SGPT) 11, Alkaline Phosphatase 26L, Total Protein 5.6L, Albumin 3.0L Microbiology 05/10/23 Stool Culture - Final, Complete See Comments 05/10/23 Urine Culture - Final, Complete [place] albicans Assessment/Plan Assessment/Plan Assessment/Plan GI bleed - upper, duodneal ulcer Anemia - 5.2 this morning [facility] anticoagulation/antiplatelet S/p egd with injection of epinephrine to control bleeding duodenal ulcer Hold Eliquis & Plavix Will not accept any blood products. Follow hgb PPI EGD showed multiple ulcers Will need rescope if Hgb continues to fall -Hgb is 5.2 this morning - stable Start clears today MAT CALDERÓN DO 05/13/23 1537: Subjective Subjective/Events-last exam Having a little confusion, but feeling better. Hgb up to 5.2. Still some slight black/tarry stools. Family at bedside. Denies n/v fever sweats chills shortness of breath or chest pain. Objective Exam General Appearance: No Apparent Distress, Chronically ill HEENT: PERRL/EOMI, Normal ENT Inspection Neck: Normal Inspection, Non Tender Respiratory: Chest Non Tender, No Accessory Muscle Use, No Respiratory Distress Cardiovascular: Regular Rate, Rhythm, No JVD Gastrointestinal: non tender, soft Extremity: Normal Inspection, Pedal Edema Neurologic/Psychiatric: Alert, Normal Mood/Affect, Depressed Affect Skin: Cool, Pallor Lymphatic: No Adenopathy Assessment/Plan Assessment/Plan Assessment/Plan GI bleed - upper, duodneal ulcer Anemia - 5.2 this morning [facility] anticoagulation/antiplatelet S/p egd with injection of epinephrine to control bleeding duodenal ulcer Hold Eliquis & Plavix Will not accept any blood products. Follow hgb PPI EGD showed multiple ulcers Will need rescope if Hgb continues to fall -Hgb is 5.2 this morning - stable Start clears today Supervisory-Addendum Brief Verification & Attestation Participated in pt care: history, MDM, physical Personally performed: exam, history, MDM, supervision of care Care discussed with: Medical Student Procedures: n/a Results interpretation: Verified all documentation Verification and Attestation of Medical Student E/M Service A medical student performed and documented this service in my presence. I reviewed and verified all information documented by the medical student and made modifications to such information, when appropriate. I personally performed the physical exam and medical decision making. Mat Calderón, May 13, 2023,15:37 MANINDER DILLARD May 13, 2023 06:46 MAT CALDERÓN DO May 13, 2023 15:37
[2023-05-13] MEDS: POTASSIUM CL 10MEQ/50ML IVPB 50 ML IV SCH ×2 (07:00→07:40)
[2023-05-13] MEDS: LACTATED RINGERS 1,000 ML 1,000 ML IV SCH ×2 (07:41→21:48)
--- NOTE | 2023-05-13 08:40 | Cardiology Progress Note ---
Subjective Date Seen by Provider: May 13, 2023 Time Seen by Provider: 08:40 Subjective/Events-last exam Patient was seen at bedside laying down comfortably, feeling better today Objective-Cardiology Exam Last Set of Vital Signs Vital Signs 05/12/23 05/13/23 05/13/23 20:00 04:39 07:00 Temp 37.2 Pulse 93 Resp 27 B/P (MAP) 121/55 (76) Pulse Ox 97 O2 Delivery Room Air O2 Flow Rate 2.00 I&O Intake and Output 05/13/23 00:00 Intake Total 1510 ml Output Total 1725 ml Balance -215 ml Intake Oral 0 ml IV Total 1510 ml Output Urine Total 1725 ml # Bowel Movements 2 General: Alert, Oriented X3, Cooperative HEENT: Atraumatic, PERRLA Neck: Supple, No JVD, No Thyromegaly Lungs: Clear to Auscultation, Normal Air Movement Heart: Regular Rate, Normal S1, Normal S2, No Murmurs Abdomen: Normal Bowel Sounds, Soft, No Tenderness, No Hepatosplenomegaly, No Masses Extremities: No Clubbing, No Cyanosis, No Edema, Normal Pulses, No Tenderness/Swelling Skin: No Rashes, No Breakdown, No Significant Lesion Neuro: Normal Gait, Normal Speech, Strength at 5/5 X4 Ext, Normal Tone, Sensation Intact Psych/Mental Status: Mental Status NL, Mood NL Results Lab Laboratory Tests 05/13/23 04:36 A/P-Cardiology Admission Diagnosis Severe anemia GI bleed Paroxysmal atrial fibrillation Hypertension Assessment/Plan Severe anemia, patient is Jehovah witness Currently off anticoagulation, Managed by primary care team Acute GI bleed, duodenal ulcer with hemorrhage, Status post epinephrine injection with EGD Paroxysmal atrial fibrillation, currently in sinus rhythm Was maintained on Eliquis which was discontinued Questionable type II myocardial infarction at [facility], non-[facility] Has been maintained on Plavix which was discontinued, continue to monitor closel y History of urethral stents with nephrolithiasis. Hypertension, monitor blood pressure Hyperlipidemia, monitor lipids DAIJA ESPARZA MD May 13, 2023 08:40
[2023-05-13] MEDS: IRON SUCROSE 200 MG/10 ML VIAL IV SCH (09:21)
[2023-05-13] MEDS: PANTOPRAZOLE INJECTION 40 MG VIAL IV SCH ×2 (09:21→20:07)
[2023-05-13] MEDS: FOLIC ACID 5MG/ML 10 ML IV SCH (09:39)
[2023-05-13] MEDS ORDERED: LOSA25TA41 PO (10:27)
[2023-05-13] MEDS ORDERED: VALA10007 PO (10:27)
[2023-05-13] MEDS ORDERED: ATOR40TA70 PO (10:27)
[2023-05-13] MEDS ORDERED: CLOP75TA28 PO (10:27)
[2023-05-13] MEDS ORDERED: TMSL.4C PO (10:27)
[2023-05-13] MEDS ORDERED: APIX5TAB PO (10:27)
[2023-05-13] MEDS ORDERED: METO50TA7 PO (10:27)
--- NOTE | 2023-05-13 10:50 | Progress Note - Hospitalist ---
Subjective HPI/CC On Admission Date Seen by Provider: May 13, 2023 Silke Hansen is a 77 year old female with PMH HTN, AFib on Eliquis, HLD, nephrolithiasis with septic stone and hydronephrosis s/p ureteral stent, who presented with melena. She reports having black stools yesterday. She denies abdominal pain. She denies nausea and vomiting. She is continuing to have black stools this morning. 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 She was admitted earlier this month with septic shock due to Klebsiella oxytoca UTI and bacteremia. She was found to have an obstructing ureteral stone and was transferred to [facility]. She required intubation. She had the stone removed and a ureteral stent placed. She had issues with AFib with [facility] and was started on Eliquis. She had an NSTEMI, presumably type II due to shock. She was started on Plavix at that time as well. Subjective/Events-last exam Pt reports doing better today but very upset about some scary movies that were playing on her TV. Family tries to explain that it is Halloween and likely just started playing when the TV wasn't turned off. She requests that her TV not be left on tonight and would like the date erased from the bored as it's Halloween. Objective Exam Vital Signs Vital Signs Date Time Temp Pulse Resp B/P (MAP) Pulse Ox O2 Delivery O2 Flow Rate FiO2 05/13/23 10:00 96 24 126/56 (79) 97 05/13/23 09:00 Room Air 05/12/23 20:00 2.00 05/12/23 20:00 37.2 Capillary Refill : Less Than 3 Seconds General Appearance: No Apparent Distress, Chronically ill Respiratory: Lungs Clear, No Respiratory Distress Cardiovascular: Regular Rate, Rhythm, No Murmur Gastrointestinal: Normal Bowel Sounds, Soft Neurologic/Psychiatric: Alert, Other (orientedx3 but a little confused about the TV ) Results/Procedures Lab Laboratory Tests 05/13/23 04:36 Patient resulted labs reviewed. Imaging: Reviewed Imaging Report Assessment/Plan Assessment and Plan Assess & Plan/Chief Complaint Acute upper GI bleeding Duodenal ulcer with hemorrhage Acute blood loss anemia Chronic anticoagulation Paroxysmal AFib Mu-ism Hgb up to 5.2 today- if continues to trend will go to QOD checks Surgery following EGD 05/10 with duodenal ulcer bleed, s/p epinephrine IV PPI Hold Eliquis and Plavix Cardiology following s/p KCentra 05/10 s/p Infed 05/10 B12 injection x2 Folic acid daily Venofer Erythropoetin x1 Declines blood products due to being Mu-ism- spoke with her [facility] at her request today Transfer to step down Goals of care discussion/counseling Patient elects DNR Ureteral stent present Nephrolithiasis UTI Urine culture with yeast Completed 3 day course of cefepime but WBC up slightly today so will resume abx given recent stent HTN HLD Hold home meds DVT prophylaxis: SCDs only due to GI bleed Critical Care Critically Ill Patient LYLE KNOTT MD May 13, 2023 10:50
[2023-05-13] MEDS: cefTRIAXone IV/IM 1,000 MG in NS (IVPB) 50 ML 50 ML IV SCH (12:30)
--- NOTE | 2023-05-13 13:33 | Occ Therapy Progress Note ---
Therapy Progress Note OT attempted evaluation Patient is voluntarily non responsive. Discussed with RN OT to return when patient is more alert ARSENIO BOWLING OT May 13, 2023 13:33
--- NOTE | 2023-05-13 15:33 | Physical Therapy Evaluation ---
PT Evaluation-General Medical Diagnosis Admission Date May 10, 2023 at 07:13 Medical Diagnosis: Melena Onset Date: May 10, 2023 Therapy Diagnosis Therapy Diagnosis: Gait deficit, strength deficit Height/Weight Height (Feet): 5 Height (Inches): 4.00 Weight (Pounds): 140 Precautions Precautions/Isolations: Fall Prevention, Standard Precautions Weight Bear Status Right Lower Extremity: Right Full Weight Bearing Left Lower Extremity: Left Full Weight Bearing Referral Physician: Dr. Vogel Reason for Referral: Evaluation/Treatment Medical History Reviewed History: Yes Social History Home: [facility] Current Living Status: Spouse Entry Into Home: Ramp PT Steps Inside Home: 14 Prior Prior Level of Function SCALE: Activities may be completed with or without assistive devices. 6-Kdjqbwdbwm-cqypule completes the activity by him/herself with no assistance from a helper. 5-Set-up or Clean-up Assistance-helper sets up or cleans up; patient completes activity. Atkins assists only prior to or following the activity. 4-Supervision or Touching Assistance-helper provides verbal cues and/or touching/steadying and/or contact guard assistance as patient completes activity. Assistance may be provided throughout the activity or intermittently. 3-Partial/Moderate Assistance-helper does LESS THAN HALF the effort. Atkins lifts, holds or supports trunk or limbs, but provides less than half the effort. 2-Substantial/Maximal Assistance-helper does MORE THAN HALF the effort. Atkins lifts or holds trunk or limbs and provides more than half the effort. 1-Huevkbaeg-gyxwrd does ALL the effort. Patient does none of the effort to complete the activity. Or, the assistance of 2 or more helpers is required for the patient to complete the activity. If activity was not attempted, code reason: 7-Patient Refused. 9-Not Applicable-not attempted and the patient did not perform the activity before the current illness, exacerbation or injury. 10-Not Attempted due to Environmental Limitations-(lack of equipment, weather restraints, etc.). 88-Not Attempted due to Medical Conditions or Safety Concerns. Bed Mobility: 6 Transfers (B,C,W/C): 6 Gait: 6 Indoor Mobility (Ambulation): Independent Stairs: Independent Prior Devices Use: None PT Evaluation-Current Subjective Patient lying supine in bed upon PT arrival, agreeable to treatment. Patient rates pain at 0/10. Objective Patient Orientation: Person, Time, Situation Attachments: Oxygen, Benson Catheter, IV ROM/Strength ROM Lower Extremities WFLs BLEs all planes Strength Lower Extremities 3+/5 BLEs all planes Sensory Vision: Functional Hearing: Functional Sensation Right Upper Extremit: Intact Sensation Left Upper Extremity: Intact Transfers Roll Left to Right (QC): 4 Sit to Lying (QC): 4 Lying to Sitting/Side of Bed(Q: 4 Sit to Stand (QC): 4 Chair/Xhi-yz-Xkxpx Xfer(QC): 3 Gait Does the Patient Walk?: Yes Mode of Locomotion: Walk Anticipated Mode of Locomotion: Walk Walk 10 feet (QC): 3 Distance: 40' Gait Assistive Device: None Comments/Gait Description Will benefit from use of FWW Balance Sitting Static: Fair Sitting Dynamic: Fair Standing Static: Fair Standing Dynamic: Poor Assessment/Needs Patient performs all bed mobility with SBA and transfers with min/mod A. Patient ambulates 40 feet with no AD per her request, however relies on PT more than necessary. Will benefit from use of FWW next gait training. Patient in chair post treatment with all needs met, nursing notified, call light in reach and [employer] in room. Rehab Potential: Fair PT Skilled Nursing Goals Filler In Goals PT Skilled Nursing Goals Time Frame: Jun 12, 2023 Roll Left & Right (QC): 6 Sit to Lying (QC): 6 Lying-Sitting on Side/Bed(QC): 6 Sit to Stand (QC): 6 Chair/Omm-ze-Pyklr Xfer(QC): 6 Toilet Transfer (QC): 6 Does the Patient Walk: Yes Walk 10 feet (QC): 6 Walk 50ft with 2 Turns (QC): 6 Walk 150 ft (QC): 6 PT Plan Problem List Problem List: Activity Tolerance, Functional Strength, Safety, Balance, Gait, Transfer, Bed Mobility, ROM Treatment/Plan Treatment Plan: Continue Plan of Care Treatment Plan: Bed Mobility, Education, Functional Activity Kerry, Functional Strength, Group Therapy, Gait, Safety, Therapeutic Exercise, Transfers Treatment Duration: Jun 12, 2023 Frequency: 6 times per week Estimated Hrs Per Day: .25 hour per day Patient and/or Family Agrees t: Yes Safety Risks/Education Patient Education: Gait Training, Transfer Techniques Teaching Recipient: Patient Teaching Methods: Demonstration, Discussion Response to Teaching: Reinforcement Needed Time Time In: 1507 Time Out: 1525 DATE: May 13, 2023 Total Billed Treatment Time: 18 Total Billed Treatment Visit, BARI COLE PT May 13, 2023 15:33
[2023-05-13] MEDS: TAMSULOSIN 0.4 MG (FLOMAX) CAP PO SCH (17:51)
[2023-05-14] VITALS (9 sets, daily range): BP systolic 93–122; BP diastolic 43–67
[2023-05-14] MEDS: LACTATED RINGERS 1,000 ML 1,000 ML IV SCH ×2 (01:14→22:31)
[2023-05-14 04:52] LABS: BASOPHILS # (AUTO) 0.1 10^3/uL (0.0-0.1); BASOPHILS % (AUTO) 1 % (0-10); EOSINOPHILS # (AUTO) 0.5 10^3/uL (0.0-0.3); EOSINOPHILS % (AUTO) 4 % (0-10); LYMPHOCYTES # (AUTO) 1.9 10^3/uL (1.0-4.0); LYMPHOCYTES % (AUTO) 13 % (12-44); MEAN CORPUSCULAR HEMOGLOBIN 30 pg (25-34); MEAN CORPUSCULAR HGB CONC 31 g/dL (32-36); MEAN CORPUSCULAR VOLUME 96 fL (80-99); MONOCYTES # (AUTO) 0.9 10^3/uL (0.0-1.0); MONOCYTES % (AUTO) 6 % (0-12); NEUTROPHILS # (AUTO) 10.6 10^3/uL (1.8-7.8); NEUTROPHILS % (AUTO) 71 % (42-75); PLATELET COUNT 314 10^3/uL (130-400); WHITE BLOOD COUNT 14.8 10^3/uL (4.3-11.0)
[2023-05-14 05:04] LABS: HEMATOCRIT 15 % (35-52); HEMOGLOBIN 4.6 g/dL (11.5-16.0)
[2023-05-14 05:20] LABS: ALBUMIN 2.7 GM/DL (3.2-4.5); BILIRUBIN,TOTAL 0.4 MG/DL (0.1-1.0); CALCIUM 7.8 MG/DL (8.5-10.1); CREATININE SERUM 0.6 MG/DL (0.60-1.30); MAGNESIUM 2.1 MG/DL (1.6-2.4); PHOSPHORUS 2.3 MG/DL (2.3-4.7); POTASSIUM 3.5 MMOL/L (3.6-5.0); TOTAL PROTEIN 4.7 GM/DL (6.4-8.2)
[2023-05-14] MEDS: POTASSIUM CL 10MEQ/50ML IVPB 50 ML IV SCH ×5 (05:44→08:50)
[2023-05-14] MEDS: POTASSIUM CHLORIDE 20 MEQ TABLET PO SCH (05:44)
--- NOTE | 2023-05-14 07:15 | Progress Note - Surgery ---
TOM ARRIAGA 05/14/23 0715: Subjective Date Seen by a Provider: May 14, 2023 Time Seen by a Provider: 06:40 Subjective/Events-last exam Pt states that she is feeling better today and notes that her confusion is less. Hgb decreased to 4.6 today from 5.2 yesterday. Review of Systems General: No Chills, No Night Sweats HEENT: No Head Aches, No Sinus Congestion Pulmonary: No Dyspnea, No Cough Cardiovascular: No: Chest Pain, Palpitations Gastrointestinal: No: Nausea, Vomiting Genitourinary: No Dysuria, No Hematuria Musculoskeletal: No: neck pain, shoulder pain Neurological: No: Numbness, Incoordination Objective Exam Vital Signs Date Time Temp Pulse Resp B/P (MAP) Pulse Ox O2 Delivery O2 Flow Rate FiO2 05/14/23 04:20 83 22 98/67 (77) 98 Room Air 05/14/23 03:23 37.1 81 25 94/55 (68) 95 Room Air 05/14/23 03:22 80 27 94/45 (57) 95 Room Air 05/14/23 01:00 81 05/14/23 00:16 36.9 05/14/23 00:00 82 15 93/43 (70) 100 Room Air 05/13/23 20:59 95 Room Air 05/13/23 20:49 89 29 106/49 (69) 94 Room Air 05/13/23 20:34 37.2 05/13/23 19:00 93 05/13/23 16:00 36.5 90 22 115/49 (71) 94 Room Air 05/13/23 13:00 92 05/13/23 12:00 92 22 116/64 (81) 95 Room Air 05/13/23 10:00 96 24 126/56 (79) 97 Room Air 05/13/23 09:00 96 Room Air 05/13/23 08:00 105 26 97 Room Air I & O 05/14/23 07:00 Intake Total 1950 ml Output Total 850 ml Balance 1100 ml Capillary Refill : Less Than 3 Seconds General Appearance: No Apparent Distress, Chronically ill HEENT: PERRL/EOMI, Normal ENT Inspection Neck: Normal Inspection, Non Tender Respiratory: Chest Non Tender, No Accessory Muscle Use, No Respiratory Distress Cardiovascular: Regular Rate, Rhythm, No JVD Peripheral Pulses: 2+ Dorsalis Pedis (R), 2+ Left Dors-Pedis (L), 2+ Radial Pulses (R), 2+ Radial Pulses (L) Gastrointestinal: non tender, soft Extremity: Normal Inspection, Pedal Edema Neurologic/Psychiatric: Alert, Normal Mood/Affect, Depressed Affect Skin: Cool, Pallor Lymphatic: No Adenopathy Results Lab Laboratory Tests 05/14/23 04:21: White Blood Count 14.8H, Red Blood Count 1.55L, Hemoglobin 4.6*L, Hematocrit 15*L, Mean Corpuscular Volume 96, Mean Corpuscular Hemoglobin 30, Mean Corpuscular Hemoglobin Concent 31L, Red Cell Distribution Width 17.3H, Platelet Count 314, Mean Platelet Volume 10.0, Immature Granulocyte % (Auto) 5, Neutrophils (%) (Auto) 71, Lymphocytes (%) (Auto) 13, Monocytes (%) (Auto) 6, Eosinophils (%) (Auto) 4, Basophils (%) (Auto) 1, Neutrophils # (Auto) 10.6H, L ymphocytes # (Auto) 1.9, Monocytes # (Auto) 0.9, Eosinophils # (Auto) 0.5H, Basophils # (Auto) 0.1, Immature Granulocyte # (Auto) 0.8H, Sodium Level 139, Potassium Level 3.5L, Chloride Level 110H, Carbon Dioxide Level 22, Anion Gap 7, Blood Urea Nitrogen 11, Creatinine 0.60, Estimat Glomerular Filtration Rate 91, BUN/Creatinine Ratio 18, Glucose Level 96, Calcium Level 7.8L, Corrected Calcium 8.8, Phosphorus Level 2.3, Magnesium Level 2.1, Total Bilirubin 0.4, Aspartate Amino Transf (AST/SGOT) 19, Alanine Aminotransferase (ALT/SGPT) 11, Alkaline Phosphatase 22L, Total Protein 4.7L, Albumin 2.7L Microbiology 05/10/23 Stool Culture - Final, Complete See Comments 05/10/23 Urine Culture - Final, Complete [place] albicans Assessment/Plan Assessment/Plan Assessment/Plan GI bleed - upper, duodneal ulcer Anemia - 4.6 this morning [facility] anticoagulation/antiplatelet S/p egd with injection of epinephrine to control bleeding duodenal ulcer Hold Eliquis & Plavix Will not accept any blood products. Follow hgb PPI EGD showed multiple ulcers Will need rescope if Hgb continues to fall -Hgb is 4.6 this morning - decreased from 5.2 yesterday Start clears today MAT CALDERÓN DO 05/14/23 1051: Subjective Subjective/Events-last exam Feeling okay. No abdominal pain. No complaints at this time. Dark stool last night. Tolerating clears. Hgb 4.6. Denies n/v fever sweats chills shortness of breath or chest pain. Objective Exam General Appearance: No Apparent Distress, Chronically ill HEENT: PERRL/EOMI, Normal ENT Inspection Neck: Normal Inspection, Non Tender Respiratory: Chest Non Tender, No Accessory Muscle Use, No Respiratory Distress Cardiovascular: Regular Rate, Rhythm, No JVD Gastrointestinal: non tender, soft Extremity: Normal Inspection, Pedal Edema Neurologic/Psychiatric: Alert, Normal Mood/Affect, Depressed Affect Skin: Cool, Pallor Lymphatic: No Adenopathy Assessment/Plan Assessment/Plan Assessment/Plan GI bleed - upper, duodneal ulcer Anemia -acute blood loss- 4.6 this morning [facility] anticoagulation/antiplatelet S/p egd with injection of epinephrine to control bleeding duodenal ulcer Hold Eliquis & Plavix Will not accept any blood products. Follow hgb PPI EGD showed multiple ulcers Will need rescope if Hgb continues to fall -Hgb is 4.6 this morning - decreased from 5.2 yesterday Continue clears Supervisory-Addendum Brief Verification & Attestation Participated in pt care: history, MDM, physical Personally performed: exam, history, MDM, supervision of care Care discussed with: Medical Student Procedures: n/a Results interpretation: Verified all documentation Verification and Attestation of Medical Student E/M Service A medical student performed and documented this service in my presence. I reviewed and verified all information documented by the medical student and made modifications to such information, when appropriate. I personally performed the physical exam and medical decision making. Mat Calderón, May 14, 2023,10:51 TOM ARRIAGA May 14, 2023 07:15 MAT CALDERÓN DO May 14, 2023 10:51
[2023-05-14] MEDS: FOLIC ACID 5MG/ML 10 ML IV SCH (08:50)
[2023-05-14] MEDS: PANTOPRAZOLE INJECTION 40 MG VIAL IV SCH ×2 (08:50→21:12)
--- NOTE | 2023-05-14 09:50 | Cardiology Progress Note ---
Subjective Date Seen by Provider: May 14, 2023 Time Seen by Provider: 09:49 Subjective/Events-last exam Patient was seen at bedside, laying down comfortably, feeling better. Objective-Cardiology Exam Last Set of Vital Signs Vital Signs 05/14/23 05/14/23 05/14/23 07:34 09:02 09:19 Temp 36.5 Pulse 85 Resp 18 B/P (MAP) 122/55 (77) Pulse Ox 96 O2 Delivery Room Air I&O Intake and Output 05/14/23 00:00 Intake Total 850 ml Output Total 700 ml Balance 150 ml Intake Oral 700 ml IV Total 150 ml Output Urine Total 700 ml General: Alert, Oriented X3, Cooperative HEENT: Atraumatic, PERRLA Neck: Supple, No JVD, No Thyromegaly Lungs: Clear to Auscultation, Normal Air Movement Heart: Regular Rate, Normal S1, Normal S2, No Murmurs Abdomen: Normal Bowel Sounds, Soft, No Tenderness, No Hepatosplenomegaly, No Masses Extremities: No Clubbing, No Cyanosis, No Edema, Normal Pulses, No Tenderness/Swelling Skin: No Rashes, No Breakdown, No Significant Lesion Neuro: Normal Gait, Normal Speech, Strength at 5/5 X4 Ext, Normal Tone, Sensation Intact Psych/Mental Status: Mental Status NL, Mood NL Results Lab Laboratory Tests 05/14/23 04:21 A/P-Cardiology Admission Diagnosis Severe anemia GI bleed Paroxysmal atrial fibrillation Hypertension Assessment/Plan Severe anemia, patient is Jehovah witness Currently off anticoagulation, Managed by primary care team Acute GI bleed, duodenal ulcer with hemorrhage, Status post epinephrine injection with EGD Paroxysmal atrial fibrillation, currently in sinus rhythm Was maintained on Eliquis which was discontinued Questionable type II myocardial infarction at , [facility] [place] Has been maintained on Plavix which was discontinued, continue to monitor closely History of urethral stents with nephrolithiasis. Hypertension, monitor blood pressure Hyperlipidemia, monitor lipids DAIJA ESPARZA MD May 14, 2023 09:50
--- NOTE | 2023-05-14 10:54 | Progress Note - Hospitalist ---
Subjective HPI/CC On Admission Date Seen by Provider: May 14, 2023 Silke Hansen is a 77 year old female with PMH HTN, AFib on Eliquis, HLD, nephrolithiasis with septic stone and hydronephrosis s/p ureteral stent, who presented with melena. She reports having black stools yesterday. She denies abdominal pain. She denies nausea and vomiting. She is continuing to have black stools this morning. She is a restorationism and does not want blood products . She was admitted earlier this month with septic shock due to Klebsiella oxytoca UTI and bacteremia. She was found to have an obstructing ureteral stone and was transferred to [facility]. She required intubation. She had the stone removed and a ureteral stent placed. She had issues with AFib with RVR and was started on Eliquis. She had an NSTEMI, presumably type II due to shock. She was started on Plavix at that time as well. Subjective/Events-last exam Pt reports doing well today. Confusion improved. On the commode during my visit. Had another darker stool. Objective Exam Vital Signs Vital Signs Date Time Temp Pulse Resp B/P (MAP) Pulse Ox O2 Delivery O2 Flow Rate FiO2 05/14/23 09:02 96 Room Air 05/14/23 07:34 36.5 101 18 122/55 (77) 05/12/23 20:00 2.00 Capillary Refill : Less Than 3 Seconds General Appearance: No Apparent Distress, Chronically ill Respiratory: Lungs Clear, No Respiratory Distress Cardiovascular: Regular Rate, Rhythm, No Murmur Gastrointestinal: Normal Bowel Sounds, Soft Neurologic/Psychiatric: Alert, Oriented x3 Results/Procedures Lab Laboratory Tests 05/14/23 04:21 Patient resulted labs reviewed. Imaging: Reviewed Imaging Report Assessment/Plan Assessment and Plan Assess & Plan/Chief Complaint Acute upper GI bleeding Duodenal ulcer with hemorrhage Acute blood loss anemia Chronic anticoagulation Paroxysmal AFib Restoration Hgb 4.6 today- continue to trend- spoke with Dr Calderón this AM regarding drop Surgery following EGD 05/10 with duodenal ulcer bleed, s/p epinephrine IV PPI Hold Eliquis and Plavix Cardiology following s/p KCentra 05/10 s/p Infed 05/10 B12 injection x2 Folic acid daily Venofer Erythropoetin x1- will repeat tomorrow if still in 4s Declines blood products due to being Restoration Goals of care discussion/counseling Patient elects DNR Ureteral stent present Nephrolithiasis UTI Urine culture with yeast Rocephin HTN HLD Hold home meds DVT prophylaxis: SCDs only due to GI bleed Critical Care Critically Ill Patient LYLE KNOTT MD May 14, 2023 10:54
--- NOTE | 2023-05-14 11:56 | Physical Therapy Daily Note ---
PT Daily Note-Current Subjective Pt is agreeable to PT. Denies pain. Pain Numeric Pain Scale: 0-No Pain Location: No Pain Reported Section J - Health Conditions 1. Rarely or not at all 2. Occasionally 3. Frequently 4. Almost constantly 8. Unable to answer Pain Effect on Sleep: 1 Pain Interference with Therapy: 1 Pain Interference w/Day-to-Day: 1 Transfers SCALE: Activities may be completed with or without assistive devices. 8-Mtrksrlhfm-iqyzxnv completes the activity by him/herself with no assistance from a helper. 5-Set-up or Clean-up Assistance-helper sets up or cleans up; patient completes activity. [place] assists only prior to or following the activity. 4-Supervision or Touching Assistance-helper provides verbal cues and/or touching/steadying and/or contact guard assistance as patient completes ac tivity. Assistance may be provided throughout the activity or intermittently. 3-Partial/Moderate Assistance-helper does LESS THAN HALF the effort. [place] lifts, holds or supports trunk or limbs, but provides less than half the effort. 2-Substantial/Maximal Assistance-helper does MORE THAN HALF the effort. [place] lifts or holds trunk or limbs and provides more than half the effort. 0-Nncbhqlro-lfjlgg does ALL the effort. Patient does none of the effort to complete the activity. Or, the assistance of 2 or more helpers is required for the patient to complete the activity. If activity was not attempted, code reason: 7-Patient Refused. 9-Not Applicable-not attempted and the patient did not perform the activity before the current illness, exacerbation or injury. 10-Not Attempted due to Environmental Limitations-(lack of equipment, weather restraints, etc.). 88-Not Attempted due to Medical Conditions or Safety Concerns. Sit to Lying (QC): 4 Sit to Stand (QC): 4 Weight Bearing Right Lower Extremity: Right Full Weight Bearing Left Lower Extremity: Left Full Weight Bearing Gait Training Does the Patient Walk?: Yes Distance: 50ft Walk 10 feet (QC): 4 Walk 50 ft with 2 Turns(QC): 4 Gait Persons Needed: 1 Gait Assistive Device: FWW Wheelchair Training Does the Pt Use a Wheelchair?: No Wheel 50 ft with 2 turns (QC): 9 Wheel 150 ft (QC): 9 Type of Wheelchair: N/A Exercises Supine Ex: Ankle pumps, Heel Slides Seated Therapy Exercises: Ankle pumps, Long arc quads, Hip flexion, Kicking activity Treatments Pt completed bed mobility and functional transfers with SBA. Pt ambulated 50ft with the FWW and CGA. Pt completed seated and supine Ther Ex x 10-15 reps each. After treatment session, pt was lying in bed with call light in reach, present, and all needs met. Assessment Current Status: Good Progress Pt tolerated PT well, with good effort. PT Usp Goals Gang Boss Goals PT Usp Goals Time Frame: Jun 12, 2023 Roll Left & Right (QC): 6 Sit to Lying (QC): 6 Lying-Sitting on Side/Bed(QC): 6 Sit to Stand (QC): 6 Chair/Gsp-po-Pphzf Xfer(QC): 6 Toilet Transfer (QC): 6 Does the Patient Walk: Yes Walk 10 feet (QC): 6 Walk 50ft with 2 Turns (QC): 6 Walk 150 ft (QC): 6 PT Plan Problem List Problem List: Activity Tolerance, Functional Strength, Safety, Balance, Gait, Transfer, Bed Mobility, ROM Treatment/Plan Treatment Plan: Continue Plan of Care Treatment Plan: Bed Mobility, Education, Functional Activity Kerry, Functional Strength, Group Therapy, Gait, Safety, Therapeutic Exercise, Transfers Treatment Duration: Jun 12, 2023 Frequency: 6 times per week Estimated Hrs Per Day: .25 hour per day Patient and/or Family Agrees t: Yes Safety Risks/Education Patient Education: Gait Training, Transfer Techniques, Correct Positioning, Safety Issues Teaching Recipient: Patient, Significant Other Teaching Methods: Demonstration, Discussion Response to Teaching: Verbalize Understanding, Return Demonstration, Reinforce ment Needed Discharge Recommendations Therapy Discharge Recommendati: Home & Family, Post Acute PT Equpiment Recommendations-D/C: None Discharge Status/Home Program Cont per POC Barriers to Progress Weakness Target Placement Home with spouse Time Time In: 1130 Time Out: 1150 DATE: May 14, 2023 Total Billed Treatment Time: 20 Total Billed Treatment 20 min 1 visit FA x 1 PIYUSH COLLINS PT May 14, 2023 11:56
[2023-05-14] MEDS: cefTRIAXone IV/IM 1,000 MG in NS (IVPB) 50 ML 50 ML IV SCH (13:51)
--- NOTE | 2023-05-14 15:21 | Occupational Therapy Eval ---
OT Evaluation-General/PLF Medical Diagnosis Admission Date May 10, 2023 at 07:13 Medical Diagnosis: Melena Onset Date: May 10, 2023 Therapy Diagnosis Therapy Diagnosis: weakness Height/Weight Height (Feet): 5 Height (Inches): 4.00 Weight (Pounds): 140 Precautions Precautions/Isolations: Standard Precautions Weight Bear Status Weight Bearing Restriction: Full Weight Bearing Location Restriction: LE Bilateral Referral Physician: Dr. Vogel Referral Reason: Evaluation/Treatment Medical History Additional Medical History 77 year old female with PMH HTN, AFib on Eliquis, HLD, nephrolithiasis with septic stone and hydronephrosis s/p ureteral stent, who presented with melena. She reports having black stools yesterday. She denies abdominal pain. She denies nausea and vomiting. She is continuing to have black stools this morning. 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 She was admitted earlier this month with septic shock due to Klebsiella oxytoca UTI and bacteremia. She was found to have an obstructing ureteral stone and was transferred to [facility]. She required intubation. She had the stone removed and a ureteral stent placed. She had issues with AFib with RVR and was started on Eliquis. She had an NSTEMI, presumably type II due to shock. She was started on Plavix Current History Remains minimally confused. Patent Performance outcomes are influenced by gender of staff Reviewed History: Yes Social History Home: Multilevel Current Living Status: Spouse Entry Into Home: Ramp Steps Inside Home: 14 ADL-Prior Level of Function SCALE: Activities may be completed with or without assistive devices. 3-Qqpnqyrage-pirpgjj completes the activity by him/herself with no assistance from a helper. 5-Set-up or Clean-up Assistance-helper sets up or cleans up; patient completes activity. [place] assists only prior to or following the activity. 4-Supervision or Touching Assistance-helper provides verbal cues and/or touching/steadying and/or contact guard assistance as patient completes activity. Assistance may be provided throughout the activity or intermittently. 3-Partial/Moderate Assistance-helper does LESS THAN HALF the effort. [place] lifts, holds or supports trunk or limbs, but provides less than half the effort. 2-Substantial/Maximal Assistance-helper does MORE THAN HALF the effort. [place] lifts or holds trunk or limbs and provides more than half the effort. 3-Nlewdoznv-tkoysc does ALL the effort. Patient does none of the effort to complete the activity. Or, the assistance of 2 or more helpers is required for the patient to complete the activity. If activity was not attempted, code reason: 7-Patient Refused. 9-Not Applicable-not attempted and the patient did not perform the activity before the current illness, exacerbation or injury. 10-Not Attempted due to Environmental Limitations-(lack of equipment, weather restraints, etc.). 88-Not Attempted due to Medical Conditions or Safety Concerns. Self Care: Independent Functional Cognition: Independent OT Current Status Subjective Son and Spouse in room, family left during transfers and gown changes, patient request family immediately return to room Mental Status/Objective Patient Orientation: Person Attachments: Benson Catheter, Oxygen, Telemetry Current Upper Extremity ROM BUE ROM WFLS Upper Extremity Coordination FAIR + Upper Extremity Strength +3/5 grossly ADL-Treatment Eating (QC): 6 Oral Hygiene (QC): 5 Shower/Bathe Self (QC): 7 Upper Body Dressing (QC): 4 Lower Body Dressing (QC): 4 On/Off Footwear (QC): 4 Toileting Hygiene (QC): 4 Education OT Patient Education: Exercise program, Modified ADL techniques, Progress toward Goal/Update tx plan, Purpose of tx/functional activities, Reviewed precautions, Rehab process, Safety issues, Transfer techniques, Use of adapted equipment Teaching Recipient: Patient, Family Teaching Methods: Demonstration, Discussion Response to Teaching: Reinforcement Needed OT Crystallographer Goals Shelter Goals Eating (QC): 6 Oral Hygiene (QC): 6 Toileting Hygiene (QC): 6 Shower/Bathe Self (QC): 6 Upper Body Dressing (QC): 6 Lower Body Dressing (QC): 6 On/Off Footwear (QC): 6 1=Demonstrate adherence to instructed precautions during ADL tasks. 2=Patient will verbalize/demonstrate understanding of assistive devices/modifications for ADL. 3=Patient will improve strength/tolerance for activity to enable patient to perform ADL's. OT Education/Plan Problem List/Assessment Assessment: Decreased Activ Tolerance, Decreased Safety Aware, Impaired Cogni tion, Impaired Self-Care Skills Discharge Recommendations Plan/Recommendations: Continue POC Therapy Discharge Recommendati: Post Acute OT Treatment Plan/Plan of Care Treatment,Training & Education: Yes Patient would benefit from OT for education, treatment and training to promote independence in ADL's, mobility, safety and/or upper extremity function for ADL's. Plan of Care: ADL Retraining, Cognitive Retraining, Concurrent Therapy, Functional Mobility, Group Exercise/Act as Ind, UE Funct Exercise/Act, UE Neuromus Re-Ed/Coord Treatment Duration: May 19, 2023 Frequency: 3 times per week (3-5 times per week) Estimated Hrs Per Day: .25 hour per day Agreement: Yes Rehab Potential: Guarded Time Start Time: 13:40 Stop Time: 13:59 DATE: May 14, 2023 Total Time Billed (hr/min): 19 Billed Treatment Time EVM 19 min ARSENIO BOWLING OT May 14, 2023 15:21
[2023-05-14] MEDS: TAMSULOSIN 0.4 MG (FLOMAX) CAP PO SCH (19:10)
[2023-05-14] MEDS: FAMOTIDINE INJ 20MG/2ML VIAL IVP SCH (21:12)
[2023-05-15 03:40] VITALS: BP 95/45
[2023-05-15 04:58] LABS: BASOPHILS # (AUTO) 0.1 10^3/uL (0.0-0.1); BASOPHILS % (AUTO) 1 % (0-10); EOSINOPHILS # (AUTO) 0.7 10^3/uL (0.0-0.3); EOSINOPHILS % (AUTO) 6 % (0-10); LYMPHOCYTES # (AUTO) 1.8 10^3/uL (1.0-4.0); LYMPHOCYTES % (AUTO) 15 % (12-44); MEAN CORPUSCULAR HEMOGLOBIN 30 pg (25-34); MEAN CORPUSCULAR HGB CONC 30 g/dL (32-36); MEAN CORPUSCULAR VOLUME 98 fL (80-99); MEAN PLATELET VOLUME 10.2 fL (9.0-12.2); MONOCYTES # (AUTO) 0.9 10^3/uL (0.0-1.0); MONOCYTES % (AUTO) 8 % (0-12); NEUTROPHILS # (AUTO) 8.2 10^3/uL (1.8-7.8); NEUTROPHILS % (AUTO) 65 % (42-75); PLATELET COUNT 287 10^3/uL (130-400); WHITE BLOOD COUNT 12.5 10^3/uL (4.3-11.0)
[2023-05-15 05:06] LABS: HEMATOCRIT 15 % (35-52); HEMOGLOBIN 4.4 g/dL (11.5-16.0)
[2023-05-15 05:24] LABS: ALBUMIN 2.6 GM/DL (3.2-4.5); BILIRUBIN,TOTAL 0.4 MG/DL (0.1-1.0); CALCIUM 7.8 MG/DL (8.5-10.1); CREATININE SERUM 0.61 MG/DL (0.60-1.30); PHOSPHORUS 2.4 MG/DL (2.3-4.7); POTASSIUM 3.6 MMOL/L (3.6-5.0); TOTAL PROTEIN 4.4 GM/DL (6.4-8.2)
[2023-05-15] MEDS: POTASSIUM CL 10MEQ/50ML IVPB 50 ML IV SCH ×5 (05:38→08:38)
[2023-05-15] MEDS: MAGNESIUM 1 GM/100 ML IVPB 100 ML IV SCH (05:38)
[2023-05-15] MEDS: POTASSIUM CHLORIDE 20 MEQ TABLET PO SCH (06:12)
--- NOTE | 2023-05-15 06:50 | Progress Note - Surgery ---
TOM ARRIAGA 05/15/23 0650: Subjective Date Seen by a Provider: May 15, 2023 Time Seen by a Provider: 06:35 Subjective/Events-last exam Pt states that she is feeling well. Hgb decreased to 4.4 from 4.6. 2 Bowel movements since yesterday that were black and tarry. Pt denies subjective fever, n/v/d, chest pain, SOA, abd pain, dysuria, headache. Review of Systems General: No Chills, No Night Sweats HEENT: No Head Aches, No Sinus Congestion Pulmonary: No Dyspnea, No Cough Cardiovascular: No: Chest Pain, Palpitations Gastrointestinal: No: Nausea, Vomiting Genitourinary: No Dysuria, No Hematuria Musculoskeletal: No: neck pain, shoulder pain Neurological: No: Weakness, Numbness Objective Exam Vital Signs Date Time Temp Pulse Resp B/P (MAP) Pulse Ox O2 Delivery O2 Flow Rate FiO2 05/15/23 03:40 36.9 81 30 95/45 (62) 95 Nasal Cannula 1.00 05/15/23 01:00 78 05/14/23 23:59 36.2 84 19 106/63 (77) 94 Nasal Cannula 1.00 05/14/23 22:11 Nasal Cannula 2.00 05/14/23 20:26 97 Nasal Cannula 2.00 05/14/23 19:46 37.1 93 16 112/48 (69) 96 Nasal Cannula 2.00 05/14/23 19:00 81 05/14/23 16:00 37.4 87 16 112/48 (69) 100 Nasal Cannula 9.00 05/14/23 11:15 36.5 98 20 114/64 (81) 100 Room Air 05/14/23 09:02 96 Room Air 05/14/23 07:34 36.5 101 18 122/55 (77) 94 Room Air 05/14/23 07:00 81 I & O 05/15/23 07:00 Intake Total 940 ml Output Total 1315 ml Balance -375 ml Capillary Refill : Less Than 3 Seconds General Appearance: No Apparent Distress, Chronically ill HEENT: PERRL/EOMI, Normal ENT Inspection Neck: Normal Inspection, Non Tender Respiratory: Lungs Clear, No Respiratory Distress Cardiovascular: Regular Rate, Rhythm, No Murmur Peripheral Pulses: 2+ Dorsalis Pedis (R), 2+ Left Dors-Pedis (L), 2+ Radial Pulses (R), 2+ Radial Pulses (L) Gastrointestinal: non tender, soft Extremity: Normal Inspection, Pedal Edema Neurologic/Psychiatric: Alert, Oriented x3 Skin: Cool, Pallor Lymphatic: No Adenopathy Results Lab Laboratory Tests 05/15/23 04:05: White Blood Count 12.5H, Red Blood Count 1.48L, Hemoglobin 4.4*L, Hematocrit 15*L, Mean Corpuscular Volume 98, Mean Corpuscular Hemoglobin 30, Mean Corpuscular Hemoglobin Concent 30L, Red Cell Distribution Width 19.2H, Platelet Count 287, Mean Platelet Volume 10.2, Immature Granulocyte % (Auto) 7, Blayne trophils (%) (Auto) 65, Lymphocytes (%) (Auto) 15, Monocytes (%) (Auto) 8, Eosinophils (%) (Auto) 6, Basophils (%) (Auto) 1, Neutrophils # (Auto) 8.2H, Lymphocytes # (Auto) 1.8, Monocytes # (Auto) 0.9, Eosinophils # (Auto) 0.7H, Basophils # (Auto) 0.1, Immature Granulocyte # (Auto) 0.9H, Sodium Level 140, Potassium Level 3.6, Chloride Level 111H, Carbon Dioxide Level 24, Anion Gap 5, Blood Urea Nitrogen 9, Creatinine 0.61, Estimat Glomerular Filtration Rate 91, BUN/Creatinine Ratio 15, Glucose Level 109H, Calcium Level 7.8L, Corrected Calcium 8.9, Phosphorus Level 2.4, Magnesium Level 2.0, Total Bilirubin 0.4, Aspartate Amino Transf (AST/SGOT) 20, Alanine Aminotransferase (ALT/SGPT) 10, Alkaline Phosphatase 22L, Total Protein 4.4L, Albumin 2.6L Microbiology 05/10/23 Stool Culture - Final, Complete See Comments 05/10/23 Urine Culture - Final, Complete [place] albicans Assessment/Plan Assessment/Plan Assessment/Plan GI bleed - upper, duodneal ulcer Anemia -acute blood loss- 4.4 this morning [facility] anticoagulation/antiplatelet S/p egd with injection of epinephrine to control bleeding duodenal ulcer Hold Eliquis & Plavix Will not accept any blood products. Follow hgb PPI EGD showed multiple ulcers Will need rescope if Hgb continues to fall -Hgb is 4.4 this morning - decreased from 4.4 yesterday Continue clears MELISSA CALDERÓN DO 05/15/23 1220: Subjective Subjective/Events-last exam Hgb 4.4. Tolerating clears. No abodminal pain. Black and tarry stools. Denies n/v fever sweats chills shortness of breath or chest pain. Family at bedside. Objective Exam General Appearance: No Apparent Distress, Chronically ill HEENT: PERRL/EOMI, Normal ENT Inspection Neck: Normal Inspection, Non Tender Respiratory: Chest Non Tender, No Accessory Muscle Use, No Respiratory Distress Cardiovascular: Regular Rate, Rhythm, No JVD Gastrointestinal: non tender, soft Extremity: Normal Inspection, Normal Range of Motion Neurologic/Psychiatric: Alert, Oriented x3 Skin: Cool, Pallor Lymphatic: No Adenopathy Assessment/Plan Assessment/Plan Assessment/Plan GI bleed - upper, duodneal ulcer Anemia -acute blood loss- 4.4 this morning [facility]ib [facility] anticoagulation/antiplatelet S/p egd with injection of epinephrine to control bleeding duodenal ulcer Hold Eliquis & Plavix Will not accept any blood products. Follow hgb PPI EGD showed multiple ulcers Will need rescope if Hgb continues to fall -Hgb is 4.4 this morning - decreased from 4.4 yesterday Continue clears Supervisory-Addendum Brief Verification & Attestation Participated in pt care: history, MDM, physical Personally performed: exam, history, MDM, supervision of care Care discussed with: Medical Student Procedures: n/a Results interpretation: Verified all documentation Verification and Attestation of Medical Student E/M Service A medical student performed and documented this service in my presence. I reviewed and verified all information documented by the medical student and made modifications to such information, when appropriate. I personally performed the physical exam and medical decision making. Melissa Calderón, May 15, 2023,12:20 TOM ARRIAGA May 15, 2023 06:50 MELISSA CALDERÓN DO May 15, 2023 12:20
--- NOTE | 2023-05-15 07:53 | Cardiology Progress Note ---
Subjective Date Seen by Provider: May 15, 2023 Time Seen by Provider: 07:53 Subjective/Events-last exam Patient was seen at bedside, laying down comfortably Denied any chest pain Objective-Cardiology Exam Last Set of Vital Signs Vital Signs 05/15/23 05/15/23 03:40 07:00 Temp 36.9 Pulse 87 Resp 30 B/P (MAP) 95/45 (62) Pulse Ox 95 O2 Delivery Nasal Cannula O2 Flow Rate 1.00 I&O Intake and Output 05/15/23 00:00 Intake Total 1800 ml Output Total 890 ml Balance 910 ml Intake Oral 600 ml IV Total 1200 ml Output Urine Total 890 ml # Bowel Movements 2 General: Alert, Oriented X3, Cooperative HEENT: Atraumatic, PERRLA Neck: Supple, No JVD, No Thyromegaly Lungs: Clear to Auscultation, Normal Air Movement Heart: Regular Rate, Normal S1, Normal S2, No Murmurs Abdomen: Normal Bowel Sounds, Soft, No Tenderness, No Hepatosplenomegaly, No Masses Extremities: No Clubbing, No Cyanosis, No Edema, Normal Pulses, No Tenderness/Swelling Skin: No Rashes, No Breakdown, No Significant Lesion Neuro: Normal Gait, Normal Speech, Strength at 5/5 X4 Ext, Normal Tone, Sensa tion Intact Psych/Mental Status: Mental Status NL, Mood NL Results Lab Laboratory Tests 05/15/23 04:05 A/P-Cardiology Admission Diagnosis Severe anemia GI bleed Paroxysmal atrial fibrillation Hypertension Assessment/Plan Severe anemia, patient is Jehovah witness Currently off anticoagulation, Managed by primary care team Acute GI bleed, duodenal ulcer with hemorrhage, Status post epinephrine injection with EGD Paroxysmal atrial fibrillation, currently in sinus rhythm Was maintained on Eliquis which was discontinued Questionable type II myocardial infarction at , non-ST DC Has been maintained on Plavix which was discontinued, continue to monitor closely History of urethral stents with nephrolithiasis. Hypertension, monitor blood pressure Hyperlipidemia, monitor lipids DAIJA ESPARZA MD May 15, 2023 07:53
[2023-05-15 08:00] VITALS: BP 117/73
[2023-05-15 08:00] LABS: RETICULOCYTE % 11.42 % (0.50-2.40)
[2023-05-15] MEDS ORDERED: CYANOCOBALAMIN 1000 MCG/ML 1 ML VIAL IM ONE (08:00)
[2023-05-15] MEDS: PANTOPRAZOLE INJECTION 40 MG VIAL IV SCH ×2 (08:33→20:20)
[2023-05-15] MEDS: FAMOTIDINE INJ 20MG/2ML VIAL IVP SCH ×2 (08:34→20:21)
[2023-05-15] MEDS: IRON SUCROSE 200 MG/10 ML VIAL IV SCH (08:34)
[2023-05-15] MEDS: FOLIC ACID 5MG/ML 10 ML IV SCH (08:34)
--- NOTE | 2023-05-15 10:38 | Progress Note - Hospitalist ---
Subjective HPI/CC On Admission Date Seen by Provider: May 15, 2023 Silke Hansen is a 77 year old female with PMH HTN, AFib on Eliquis, HLD, nephrolithiasis with septic stone and hydronephrosis s/p ureteral stent, who presented with melena. She reports having black stools yesterday. She denies abdominal pain. She denies nausea and vomiting. She is continuing to have black stools this morning. 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 She was admitted earlier this month with septic shock due to Klebsiella oxytoca UTI and bacteremia. She was found to have an obstructing ureteral stone and was transferred to [facility]. She required intubation. She had the stone removed and a ureteral stent placed. She had issues with AFib with RVR and was started on Eliquis. She had an NSTEMI, presumably type II due to shock. She was started on Plavix at that time as well. Subjective/Events-last exam Pt reports feeling better today. No complaints. On commode. Hemoglobin stable today. Family requesting to stop checking blood work. Discussed my preference to check as she is still trending down but will try to do finger stick. Objective Exam Vital Signs Vital Signs Date Time Temp Pulse Resp B/P (MAP) Pulse Ox O2 Delivery O2 Flow Rate FiO2 05/15/23 09:14 97 Nasal Cannula 2.00 05/15/23 08:18 37.1 05/15/23 08:00 98 20 117/73 (88) Capillary Refill : Less Than 3 Seconds General Appearance: No Apparent Distress, Chronically ill Respiratory: Lungs Clear, No Respiratory Distress Cardiovascular: Regular Rate, Rhythm, No Murmur Gastrointestinal: Normal Bowel Sounds, Soft Neurologic/Psychiatric: Alert, Oriented x3 Results/Procedures Lab Laboratory Tests 05/15/23 04:05 Patient resulted labs reviewed. Imaging: Reviewed Imaging Report Assessment/Plan Assessment and Plan Assess & Plan/Chief Complaint Acute upper GI bleeding Duodenal ulcer with hemorrhage Acute blood loss anemia Chronic anticoagulation Paroxysmal AFib Druze Hgb 4.4 today- continue to trend- will do finger sticks Surgery following EGD 05/10 with duodenal ulcer bleed, s/p epinephrine IV PPI Hold Eliquis and Plavix Cardiology following s/p KCentra 05/10 s/p Infed 05/10 B12 injection x2- repeat today Folic acid daily Venofer Erythropoetin x1- second dose today Declines blood products due to being Druze Will do finger sticks for blood checks as able Goals of care discussion/counseling Patient elects DNR Ureteral stent present Nephrolithiasis UTI Urine culture with yeast Rocephin HTN HLD Hold home meds DVT prophylaxis: SCDs only due to GI bleed Critical Care Critically Ill Patient LYLE KNOTT MD May 15, 2023 10:38
--- NOTE | 2023-05-15 11:06 | Physical Therapy Progress Note ---
Therapy Progress Note Patient Hb at 4.4. Discussed treatment with nurse and she reports patient is getting up to the BSC and moving as much as the patient will allow. PT will hold at this time due to low Hb and patients refusal to accept blood. Will continue to monitor and progress treatment when patient is safe. BARI AHUMADA PT May 15, 2023 11:06
--- NOTE | 2023-05-15 11:48 | Occ Therapy Progress Note ---
Therapy Progress Note Patient Hb at 4.4. Discussed treatment with nurse and she reports patient is getting up to the BSC and moving as much as the patient will allow. OT will hold at this time due to low Hb and patients refusal to accept blood. Family member has requested OT not reports blood level to patient as that is a negative comment and only brings about depression . OT did not report blood level to patient or any member in patient room only that currently the blood level is un safe for therapeutic intervention guidelines from OT. Patient did request [employer]. OT facilitated to call number on menu for dietary needs. OT informed BRADLEY Atkins of situation Will continue to monitor and progress treatment when patient is safe. ARSENIO BOWLING OT May 15, 2023 11:48
--- NOTE | 2023-05-15 14:31 | Physical Therapy Daily Note ---
PT Daily Note-Current Subjective Patient lying supine in bed upon PT arrival, agreeable to treatment. Pain Section J - Health Conditions 1. Rarely or not at all 2. Occasionally 3. Frequently 4. Almost constantly 8. Unable to answer Pain Effect on Sleep: 1 Pain Interference with Therapy: 1 Pain Interference w/Day-to-Day: 1 Transfers SCALE: Activities may be completed with or without assistive devices. 7-Ljvmxgyibi-atgucyj completes the activity by him/herself with no assistance from a helper. 5-Set-up or Clean-up Assistance-helper sets up or cleans up; patient completes activity. [place] assists only prior to or following the activity. 4-Supervision or Touching Assistance-helper provides verbal cues and/or touching/steadying and/or contact guard assistance as patient completes activity. Assistance may be provided throughout the activity or intermittently. 3-Partial/Moderate Assistance-helper does LESS THAN HALF the effort. [place] lifts, holds or supports trunk or limbs, but provides less than half the effort. 2-Substantial/Maximal Assistance-helper does MORE THAN HALF the effort. [place] lifts or holds trunk or limbs and provides more than half the effort. 4-Jzgubzgpm-vvxbtc does ALL the effort. Patient does none of the effort to complete the activity. Or, the assistance of 2 or more helpers is required for the patient to complete the activity. If activity was not attempted, code reason: 7-Patient Refused. 9-Not Applicable-not attempted and the patient did not perform the activity before the current illness, exacerbation or injury. 10-Not Attempted due to Environmental Limitations-(lack of equipment, weather restraints, etc.). 88-Not Attempted due to Medical Conditions or Safety Concerns. Roll Left & Right (QC): 3 Sit to Lying (QC): 3 Lying to Sitting/Side of Bed(Q: 3 Sit to Stand (QC): 3 Weight Bearing Right Lower Extremity: Right Full Weight Bearing Left Lower Extremity: Left Full Weight Bearing Gait Training Does the Patient Walk?: Yes Distance: 40' Walk 10 feet (QC): 3 Gait Assistive Device: FWW Assessment Current Status: Fair Progress Patient performs all bed mobility and transfers with mod A. Patient ambulates 40 feet with FWW with mod A and verbal cues for safety, progression, conservation of energy. Patient lying supine in bed post treatment with all needs met, nursing notified, call light in hand. PT Chcf Goals Chcf Goals PT Chcf Goals Time Frame: Jun 12, 2023 Roll Left & Right (QC): 6 Sit to Lying (QC): 6 Lying-Sitting on Side/Bed(QC): 6 Sit to Stand (QC): 6 Chair/Sjr-md-Ndunc Xfer(QC): 6 Toilet Transfer (QC): 6 Does the Patient Walk: Yes Walk 10 feet (QC): 6 Walk 50ft with 2 Turns (QC): 6 Walk 150 ft (QC): 6 PT Plan Treatment/Plan Treatment Plan: Continue Plan of Care Treatment Plan: Bed Mobility, Education, Functional Activity Kerry, Functional Strength, Group Therapy, Gait, Safety, Therapeutic Exercise, Transfers Treatment Duration: Jun 12, 2023 Frequency: 6 times per week Estimated Hrs Per Day: .25 hour per day Patient and/or Family Agrees t: Yes Safety Risks/Education Patient Education: Gait Training, Transfer Techniques Teaching Recipient: Patient Teaching Methods: Demonstration, Discussion Response to Teaching: Reinforcement Needed Time Time In: 1346 Time Out: 1400 DATE: May 15, 2023 Total Billed Treatment Time: 14 Total Billed Treatment Visit, GT BARI AHUMADA PT May 15, 2023 14:31
[2023-05-15 16:00] VITALS: BP 108/51
[2023-05-15] MEDS: cefTRIAXone IV/IM 1,000 MG in NS (IVPB) 50 ML 50 ML IV SCH (17:01)
[2023-05-15] MEDS: TAMSULOSIN 0.4 MG (FLOMAX) CAP PO SCH (17:29)
[2023-05-15 20:00] VITALS: BP 100/51
[2023-05-15] MEDS: LACTATED RINGERS 1,000 ML 1,000 ML IV SCH (21:24)
[2023-05-15 23:00] VITALS: BP 95/45
[2023-05-16 04:40] VITALS: BP 101/58
[2023-05-16 04:57] LABS: HEMOGLOBIN 4.6 g/dL (11.5-16.0)
--- NOTE | 2023-05-16 09:46 | Physical Therapy Daily Note ---
PT Daily Note-Current Subjective Pt is agreeable to PT. Denies pain. Pain Location: No Pain Reported Section J - Health Conditions 1. Rarely or not at all 2. Occasionally 3. Frequently 4. Almost constantly 8. Unable to answer Pain Effect on Sleep: 1 Pain Interference with Therapy: 1 Pain Interference w/Day-to-Day: 1 Transfers SCALE: Activities may be completed with or without assistive devices. 1-Qjzlbbachr-tdmdeom completes the activity by him/herself with no assistance from a helper. 5-Set-up or Clean-up Assistance-helper sets up or cleans up; patient completes activity. [place] assists only prior to or following the activity. 4-Supervision or Touching Assistance-helper provides verbal cues and/or t ouching/steadying and/or contact guard assistance as patient completes activity. Assistance may be provided throughout the activity or intermittently. 3-Partial/Moderate Assistance-helper does LESS THAN HALF the effort. [place] lifts, holds or supports trunk or limbs, but provides less than half the effort. 2-Substantial/Maximal Assistance-helper does MORE THAN HALF the effort. [place] lifts or holds trunk or limbs and provides more than half the effort. 7-Amfmddgny-nnwywl does ALL the effort. Patient does none of the effort to complete the activity. Or, the assistance of 2 or more helpers is required for the patient to complete the activity. If activity was not attempted, code reason: 7-Patient Refused. 9-Not Applicable-not attempted and the patient did not perform the activity before the current illness, exacerbation or injury. 10-Not Attempted due to Environmental Limitations-(lack of equipment, weather restraints, etc.). 88-Not Attempted due to Medical Conditions or Safety Concerns. Lying to Sitting/Side of Bed(Q: 4 Sit to Stand (QC): 4 Chair/Wby-mc-Uppca Xfer(QC): 4 Weight Bearing Right Lower Extremity: Right Full Weight Bearing Left Lower Extremity: Left Full Weight Bearing Gait Training Does the Patient Walk?: Yes Distance: 80ft Walk 10 feet (QC): 4 Walk 50 ft with 2 Turns(QC): 4 Gait Persons Needed: 1 Gait Assistive Device: FWW Treatments Pt completed supine > sit with SBA. Pt completed sit to stand transfers with SBA/CGA. Pt ambulated 80ft with the FWW and CGA. After treatment session, pt was sitting in the recliner with call light in reach and all needs met. Assessment Current Status: Good Progress Pt tolerated PT well PT Head Charrer Goals Head Charrer Goals PT Fdc Goals Time Frame: Jun 12, 2023 Roll Left & Right (QC): 6 Sit to Lying (QC): 6 Lying-Sitting on Side/Bed(QC): 6 Sit to Stand (QC): 6 Chair/Cvu-ct-Wlsxe Xfer(QC): 6 Toilet Transfer (QC): 6 Does the Patient Walk: Yes Walk 10 feet (QC): 6 Walk 50ft with 2 Turns (QC): 6 Walk 150 ft (QC): 6 PT Plan Problem List Problem List: Activity Tolerance, Functional Strength, Safety, Balance, Gait, Transfer, Bed Mobility, ROM Treatment/Plan Treatment Plan: Continue Plan of Care Treatment Plan: Bed Mobility, Education, Functional Activity Kerry, Functional Strength, Group Therapy, Gait, Safety, Therapeutic Exercise, Transfers Treatment Duration: Jun 12, 2023 Frequency: 6 times per week Estimated Hrs Per Day: .25 hour per day Patient and/or Family Agrees t: Yes Safety Risks/Education Patient Education: Gait Training, Transfer Techniques, Correct Positioning, Safety Issues Teaching Recipient: Patient Teaching Methods: Demonstration, Discussion Response to Teaching: Reinforcement Needed Discharge Recommendations Therapy Discharge Recommendati: Post Acute PT Time Time In: 845 Time Out: 901 DATE: May 16, 2023 Total Billed Treatment Time: 16 Total Billed Treatment 16 min 1 visit GT PIYUSH COLLINS PT May 16, 2023 09:46
--- NOTE | 2023-05-16 09:50 | Occupational Ther Daily Note ---
OT Current Status-Daily Note Subjective Agreeable to therapy and increased activity Pain Location: No Pain Reported Mental Status/Objective Patient Orientation: Person, Place, Time, Situation Attachments: Benson Catheter, IV, Telemetry ADL-Treatment Declines hair grooming however needed, declines oral care. Agreeable to functional activity w/ ambulation in room, declines out of room tasks Therapy Code Descriptions/Definitions Functional Whitman Measure: 0=Not Assessed/NA 4=Minimal Assistance 1=Total Assistance 5=Supervision or Setup 2=Maximal Assistance 6=Modified [place] 3=Moderate Assistance 7=Complete IndependenceSCALE: Activities may be completed with or without assistive devices. 5-Hnmykjqxsm-byiuhlc completes the activity by him/herself with no assistance from a helper. 5-Set-up or Clean-up Assistance-helper sets up or cleans up; patient completes activity. [place] assists only prior to or following the activity. 4-Supervision or Touching Assistance-helper provides verbal cues and/or to uching/steadying and/or contact guard assistance as patient completes activity. Assistance may be provided throughout the activity or intermittently. 3-Partial/Moderate Assistance-helper does LESS THAN HALF the effort. [place] lifts, holds or supports trunk or limbs, but provides less than half the effort. 2-Substantial/Maximal Assistance-helper does MORE THAN HALF the effort. [place] lifts or holds trunk or limbs and provides more than half the effort. 6-Xbzglejnv-blrtzs does ALL the effort. Patient does none of the effort to complete the activity. Or, the assistance of 2 or more helpers is required for the patient to complete the activity. If activity was not attempted, code reason: 7-Patient Refused. 9-Not Applicable-not attempted and the patient did not perform the activity before the current illness, exacerbation or injury. 10-Not Attempted due to Environmental Limitations-(lack of equipment, weather restraints, etc.). 88-Not Attempted due to Medical Conditions or Safety Concerns. Eating (QC): 6 (clears) Oral Hygiene (QC): 7 Shower/Bathe Self (QC): 7 (declined bath cloth) Upper Body Dressing (QC): 4 Lower Body Dressing (QC): 4 On/Off Footwear: 7 (refused) Toileting Hygiene (QC): 4 (residual on bed pad) Toilet Transfer (QC): 4 Education OT Patient Education: Correct positioning, Modified ADL techniques, Progress toward Goal/Update tx plan, Purpose of tx/functional activities, Reviewed precautions, Rehab process, Safety issues, Transfer techniques, Use of adapted equipment Teaching Recipient: Patient Teaching Methods: Demonstration Response to Teaching: Return Demonstration OT Halfway Goals Halfway Goals Eating (QC): 6 Oral Hygiene (QC): 6 Toileting Hygiene (QC): 6 Shower/Bathe Self (QC): 6 Upper Body Dressing (QC): 6 Lower Body Dressing (QC): 6 On/Off Footwear (QC): 6 1=Demonstrate adherence to instructed precautions during ADL tasks. 2=Patient will verbalize/demonstrate understanding of assistive devices/modifications for ADL. 3=Patient will improve strength/tolerance for activity to enable patient to perform ADL's. OT Education/Plan Problem List/Assessment Assessment: Decreased Activ Tolerance, Decreased Safety Aware, Decreased UE Strength, Impaired Self-Care Skills Discharge Recommendations Plan/Recommendations: Continue POC Therapy Discharge Recommendati: Post Acute OT Treatment Plan/Plan of Care Treatment,Training & Education: Yes Patient would benefit from OT for education, treatment and training to promote independence in ADL's, mobility, safety and/or upper extremity function for ADL's. Plan of Care: ADL Retraining, Cognitive Retraining, Concurrent Therapy, Functional Mobility, Group Exercise/Act as Ind, UE Funct Exercise/Act, UE Neuromus Re-Ed/Coord Treatment Duration: May 19, 2023 Frequency: 3 times per week (3-5 times per week) Estimated Hrs Per Day: .25 hour per day Agreement: Yes Rehab Potential: Guarded Up in recliner, all needs met Time Start Time: 08:45 Stop Time: 09:01 DATE: May 16, 2023 Total Time Billed (hr/min): 16 Billed Treatment Time FA 16 min ARSENIO BOWLING OT May 16, 2023 09:50
--- NOTE | 2023-05-16 10:13 | Cardiology Progress Note ---
Subjective Date Seen by Provider: May 16, 2023 Time Seen by Provider: 10:12 Subjective/Events-last exam Patient was seen at bedside, sitting comfortably, feeling better. No new complain Objective-Cardiology Exam Last Set of Vital Signs Vital Signs 05/16/23 05/16/23 04:40 07:00 Temp 36.9 Pulse 80 Resp 20 B/P (MAP) 101/58 (72) Pulse Ox 97 O2 Delivery Room Air I&O Intake and Output 05/16/23 00:00 Intake Total 2340 ml Output Total 1675 ml Balance 665 ml Intake Oral 1140 ml IV Total 1200 ml Output Urine Total 1675 ml # Bowel Movements 1 General: Alert, Oriented X3, Cooperative HEENT: Atraumatic, PERRLA Neck: Supple, No JVD, No Thyromegaly Lungs: Clear to Auscultation, Normal Air Movement Heart: Regular Rate, Normal S1, Normal S2, No Murmurs Abdomen: Normal Bowel Sounds, Soft, No Tenderness, No Hepatosplenomegaly, No Masses Extremities: No Clubbing, No Cyanosis, No Edema, Normal Pulses, No Tenderne ss/Swelling Skin: No Rashes, No Breakdown, No Significant Lesion Neuro: Normal Gait, Normal Speech, Strength at 5/5 X4 Ext, Normal Tone, Sensation Intact Psych/Mental Status: Mental Status NL, Mood NL Results Lab Laboratory Tests 05/16/23 04:45 A/P-Cardiology Admission Diagnosis Severe anemia GI bleed Paroxysmal atrial fibrillation Hypertension Assessment/Plan Severe anemia, patient is Jehovah witness Currently off anticoagulation, Managed by primary care team Acute GI bleed, duodenal ulcer with hemorrhage, Status post epinephrine injection with EGD Paroxysmal atrial fibrillation, currently in sinus rhythm Was maintained on Eliquis which was discontinued Questionable type II myocardial infarction at , non-ST [place] Has been maintained on Plavix which was discontinued, continue to monitor closely History of urethral stents with nephrolithiasis. Hypertension, monitor blood pressure Hyperlipidemia, monitor lipids I will sign off at this point, please reconsult if needed Thank you for allowing me to participate in the management of Mrs. Jade ESPARZADAIJA MD May 16, 2023 10:13
[2023-05-16] MEDS: FOLIC ACID 5MG/ML 10 ML IV SCH (11:09)
[2023-05-16] MEDS: PANTOPRAZOLE INJECTION 40 MG VIAL IV SCH (11:09)
--- NOTE | 2023-05-16 11:49 | Discharge Summary ---
Diagnosis/Chief Complaint Date of Admission May 10, 2023 at 07:13 Date of Discharge Discharge Date: May 16, 2023 Admission Diagnosis Acute upper GI bleeding Primary Care Dion Be DO Discharge Diagnosis (1) Duodenal ulcer with hemorrhage Status: Acute (2) Acute upper GI bleeding Status: Acute (3) ABLA (acute blood loss anemia) Status: Acute (4) Chronic anticoagulation Status: Chronic (5) Paroxysmal atrial fibrillation Status: Chronic (6) HTN (hypertension) Status: Chronic (7) HLD (hyperlipidemia) Status: Chronic (8) Ureteral stent present Status: Chronic (9) Refusal of blood transfusions as patient is Jainism Status: Acute (10) Goals of care, counseling/discussion Status: Acute Discharge Summary Discharge Physical Exam Allergies: Coded Allergies: codeine (Verified Allergy, Unknown, 10/31/17) Vitals & I&Os Vital Signs Date Time Temp Pulse Resp B/P (MAP) Pulse Ox O2 Delivery O2 Flow Rate FiO2 05/16/23 07:00 80 05/16/23 04:40 36.9 20 101/58 (72) 97 Room Air 05/15/23 20:00 1.00 Hospital Course Labs (last 24 hrs) Laboratory Tests 05/16/23 04:45: Hemoglobin 4.6*L, Hematocrit 15*L Microbiology 05/10/23 Stool Culture - Final, Complete See Comments 05/10/23 Urine Culture - Final, Complete [place] albicans Patient resulted labs reviewed. Pending Labs Laboratory Tests 05/16/23 04:45: Hemoglobin 4.6, Hematocrit 15 Imaging: Reviewed Imaging Report Discharge Home Medications: Active Scripts Active Reported Losartan Potassium 25 Mg Tablet 25 Mg PO DAILY Flomax (Tamsulosin HCl) 0.4 Mg Cap 0.4 Mg PO DAILY Eliquis (Apixaban) 5 Mg Tablet 5 Mg PO BID Clopidogrel (Clopidogrel Bisulfate) 75 Mg Tablet 75 Mg PO BID Valacyclovir (Valacyclovir HCl) 1,000 Mg Tablet 1,000 Mg PO BID FILLED 05-09-2023 #16/8 DAY SUPPLY Metoprolol Succinate 50 Mg Tab.er.24h 50 Mg PO BID HOLD FOR SBP LESS THAN 110 AND/OR HR LESS THAN 60 Atorvastatin Calcium 40 Mg Tablet 40 Mg PO HS Instructions to patient/family Please see electronic discharge instructions given to patient. LYLE KNOTT MD May 16, 2023 11:49
[2023-05-16 11:57] VITALS: BP 110/51
[2023-05-16] MEDS: cefTRIAXone IV/IM 1,000 MG in NS (IVPB) 50 ML 50 ML IV SCH (12:44)
[2023-05-16 12:45] VITALS: BP 110/61
--- NOTE | 2023-05-16 16:05 | Progress Note - Surgery ---
Subjective Date Seen by a Provider: May 16, 2023 Time Seen by a Provider: 11:19 Subjective/Events-last exam Patient feeling good today. Tolerating diet. Hgb 4.6. No abdominal pain. Denies n/v fever sweats chills shortness of breath or chest pain. at bedside. Objective Exam Vital Signs Date Time Temp Pulse Resp B/P (MAP) Pulse Ox O2 Delivery O2 Flow Rate FiO2 05/16/23 12:45 36.1 88 22 110/61 98 Room Air 05/16/23 11:57 36.9 82 16 110/51 (70) 99 Room Air 05/16/23 09:00 Room Air 05/16/23 07:00 80 05/16/23 04:40 36.9 82 20 101/58 (72) 97 Room Air 05/16/23 00:10 85 05/15/23 23:00 36.8 89 17 95/45 (62) 92 Room Air 05/15/23 21:33 Room Air 05/15/23 20:30 96 Room Air 05/15/23 20:00 82 35 100/51 (67) 96 Nasal Cannula 1.00 05/15/23 20:00 37.4 Room Air 05/15/23 19:28 97 Room Air 05/15/23 18:53 79 l I & O 05/16/23 07:00 Intake Total 2300 ml Output Total 1300 ml Balance 1000 ml Capillary Refill : Less Than 3 Seconds General Appearance: No Apparent Distress, Chronically ill HEENT: PERRL/EOMI, Normal ENT Inspection Neck: Normal Inspection, Non Tender Respiratory: Chest Non Tender, No Accessory Muscle Use, No Respiratory Distress Cardiovascular: Regular Rate, Rhythm, No JVD Peripheral Pulses: 2+ Dorsalis Pedis (R), 2+ Left Dors-Pedis (L), 2+ Radial Pulses (R), 2+ Radial Pulses (L) Gastrointestinal: non tender, soft Extremity: Normal Inspection, Normal Range of Motion Neurologic/Psychiatric: Alert, Oriented x3 Skin: Cool, Pallor Lymphatic: No Adenopathy Results Lab Laboratory Tests 05/16/23 04:45: Hemoglobin 4.6*L, Hematocrit 15*L Microbiology 05/10/23 Stool Culture - Final, Complete See Comments 05/10/23 Urine Culture - Final, Complete [place] albicans Assessment/Plan Assessment/Plan Assessment/Plan GI bleed - upper, duodneal ulcer Anemia -acute blood loss- 4.6 this morning Afib Care Home anticoagulation/antiplatelet S/p egd with injection of epinephrine to control bleeding duodenal ulcer Hold Eliquis & Plavix Will not accept any blood products. Follow hgb PPI EGD showed multiple ulcers Will need rescope if Hgb continues to fall -Hgb is 4.6 this morning slowly advance diet MELISSA SELLERS DO May 16, 2023 16:05
[2023-05-16] MEDS ORDERED: FAMOTIDINE INJ 20MG/2ML VIAL IVP SCH (21:00)
== END 2023-05-16 14:20 | disposition swing bed (61) | DRG 378 ==
LOC: EDUNIT# 02:50 → ER 02:54 → 4TH 07:13 → ICU 05-11 06:22 → CSD 05-12 17:00
PROVIDERS: ADMIT Internal Medicine; ATTEND Family Medicine
PROC: 3E0G8GC Introduction of Other Therapeutic Substance into Upper GI, Via Natural or Artificial Opening Endoscopic (ICD-10-PCS; principal; 2023-05-10 16:51)
DX: K26.4 Chronic or unspecified duodenal ulcer with hemorrhage (principal); D62 Acute posthemorrhagic anemia; N39.0 Urinary tract infection, site not specified; I42.9 Cardiomyopathy, unspecified; Z79.82 Long term (current) use of aspirin; Z79.01 Long term (current) use of anticoagulants; Z79.899 Other long term (current) drug therapy; Z51.5 Encounter for palliative care; Z66 Do not resuscitate; I48.91 Unspecified atrial fibrillation; E78.00 Pure hypercholesterolemia, unspecified; I10 Essential (primary) hypertension; I25.2 Old myocardial infarction; I48.0 Paroxysmal atrial fibrillation; N20.0 Calculus of kidney; K44.9 Diaphragmatic hernia without obstruction or gangrene
CPT/HCPCS: 36415; 74177; 80048; 80053; 81000; 82274; 82607; 82728; 82746; 83540; 83550; 83735; 84100; 85007; 85014; 85018; 85025; 85027; 85045; 85610; 85730; 86850; 86900; 86901; 87015; 87045; 87046; 87088; 87324; 87449; 87899; 93005; 93041; 94760; 96361; 96365; 96375

== ENCOUNTER 2023-05-16 11:51 | Inpatient (IN) | payer MEDICARE ==
[~2023-05-16] VITALS: Ht 162 cm; Wt 75.0 kg
[~2023-05-16 11:51] MED LIST changes: +APIX5TAB PO; +ATOR40TA70 PO; +CLOP75TA28 PO; +LOSA25TA41 PO; +METO50TA7 PO; +TMSL.4C PO; +VALA10007 PO
[2023-05-16] MEDS ORDERED: EPINEPHrine INJECTION 1 MG/ML AMP IM PRN (14:30)
[2023-05-16] MEDS ORDERED: RT-ALBUTEROL SULF 2.5 MG/3 ML PRE-MIX VIAL IH PRN (14:30)
[2023-05-16] MEDS ORDERED: HYDROCORTISONE INJECTION 100 MG/2 ML VIAL IV PRN (14:30)
[2023-05-16] MEDS ORDERED: HURRICAINE EXT TUBE (BENZOCAINE) XX PRN (14:30)
[2023-05-16] MEDS ORDERED: diphenhydrAMINE INJ 50 MG/ML VIAL IV PRN (14:30)
--- OUTSIDE RECORDS SUMMARY | 2023-05-16 14:36 | XMS REPORT | Clinical Summary ---
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
--- OUTSIDE RECORDS SUMMARY | 2023-05-16 14:37 | XMS REPORT | Encounter Summary ---
Author Author [facility] Organization [facility] Address Unknown Phone Unavailable Care Team Providers Care Ocularist Name Role Phone Dion Be PCP [phone] Reason for Referral * Consult, Test & Treat (Routine) - Pending Review Specialty Diagnoses / Procedures Referred By Contac t Referred To Contact Procedures REQUEST FOR CARDIOLOGY APPOINTMENT Diane Aguilar APRN-NP [address] [place] [address] Referral ID Status Reason Start Date Expiration Date V isits Requested Visits Authorized [id number] Pending Review 05/06/2023 05/05/2024 1 1 Reason for Visit * Reason Comments Heart Failure * Consultation (Discharge Pending) - New Request Specialty Diagnoses / Procedures Referred By [place] mccabe Referred To Contact Cardiology Procedures APPOINTMENT REQUEST: CARDIOLOGY HEART FAILURE Kenya Lisa PA-C [address] [facility] [address] [place] [address] [place] [address] [facility] [address] [facility] [address], [address] [place] [address] Referral ID Status Reason Start Date Expiration Date V isits Requested Visits Authorized [id number] New Request 04/29/2023 04/28/2024 1 1 Encounter Details Date Type Department Care Team Description 05/06/2023 2:00 PM CDT Office Visit Cardiovascular Medicine: [facility] [address] [place] [phone] Diane Aguilar, MACHINIST HELPER MARINE-MOLDING MANAGER [address] [place] [address] Heart Failure Social History Tobacco Use Types Packs/Day Years Used Date Smoking Tobacco: Never Smokeless Tobacco: Never Alcohol Use Standard Drinks/Week Comments Never 0 (1 standard drink = 0.6 oz pur e alcohol) Alcohol Use Answer Date Recorded Alcohol Use No 04/23/2023 Male: 9+ ounces (15+ Standard Drinks) per week T hreshold Not on file 04/23/2023 Female: 4.8+ ounces (8+ Standard Drinks) per wee k Threshold 0 04/23/2023 Sex and Gender Information Value Date Recorded Sex Assigned at Not on file Gender Identity Not on file Sexual Orientation Not on file documented as of this encounter Last Filed Vital Signs Vital Sign Reading Time Taken Comments Blood Pressure 138/60 05/06/2023 1:59 PM CDT Pulse 86 05/06/2023 1:59 PM CDT Temperature - - Respiratory Rate - - Oxygen Saturation 97% 05/06/2023 1:59 PM CDT Inhaled Oxygen Concentration - - Weight 74.4 kg (164 lb) 05/06/2023 1:59 PM CDT Height 160 cm (5' 3") 05/06/2023 1:59 PM CDT Body Mass Index 29.05 05/06/2023 1:59 PM CDT documented in this encounter Functional Status Functional Status Response Date of Assess ment Does the patient have a hearing impairment: No 05/06/2023 Does the patient have a visual impairment: No 05/06/2023 Does the patient have impaired ambulation: No 05/06/2023 Cognitive Status Response Date of Assessm ent Does the patient have a cognitive impairment: No 05/06/2023 documented as of this encounter Ordered Prescriptions Prescription Sig Dispensed Refills Start Date End Da te losartan (COZAAR) 25 mg tabletIndications:chronic heart failure Take one tablet by mouth daily. Indications: chronic heart failure 90 tablet 1 05/06/2023 documented in this encounter Progress Notes * Diane Aguilar, MARIANNE-MOLDING MANAGER - 05/06/2023 2:00 PM CDT Date of Service: 05/06/2023 Silke Hansen is a 77 y.o. female. Patient was identified using dual identification of name and date of . HPI Hospital discharge follow-up Silke Hansen is a 77 y.o. female not established with cardiology in outpatient setting She presents for a post-hospitalization follow up today. Her discharge summary was reviewed, and a thorough medication reconciliation was undertaken. Reviewed hospital course with patient. Reviewed follow-up plan with patient. Reviewed current symptoms with patient. Date of admission: 04/22/23 Date of discharge: 05/01/23 Date of Transition of Care Phone Call: not done A/P as below: Silke Lee a 77 y.o.femalewith PMH of HTN who presented to OSH on 04/20 w/ c/o rlq pain and chills for 1 day. Found to be in septic shock w/ a R ureter obstructive stone. Transferred to for further care. She developed Afib w/ RVR on 04/23. Cardiology consulted and rate controlled w/ Metoprolol. She wasdiuresed with resolution of her resp failure. Echo obtained showed EF of 30-35%. Patient had a stress test later in her stay that showed "Predominantly fixed defect is identified involving the mid septal wall for left ventricle extending to the anterior and inferior wall. On quantification, the area of reversibility is approximately 4-8% of the left ventricular myocardium (12 mL left ventricular myocardial volume). Findings are compatible with myocardial infarction with mild alvaro-infarct ischemia." Cardiology offered inpatient cath vs outpatient cath which patient decided to recover physically for now and then come back as outpatient for cath. She will follow up with Cardiology in the next 4-6 weeks for follow for her heart failure and NSTEMI. She will continue on her Apixaban (for Afib) and Plavix (for NSTEMI treatment) until at least that follow up appointment. She will continue her newly started Toprol XL 50 mg daily on discharge. HerBP does not seem high enough to support Losartan but hopefully can be started on follow up with Cardiology. She will continue Valtrex on discharge for oral HSV infection to complete 10 days of therapy. Pt presents today reporting that she is still in rehab and has a gregorio catheter in. She is walking a long with PT and thinks she may go home early next week. She denies CP, SOB, palpitations, dizziness, syncope, falls, LE swelling, abd bloating, orthopnea or PND. She was having diarrhea but improved to soft stools now. She has most difficulty with her mouth sores which are improving, although still bad on her lips. She was seen today with her niece Cesia. She would rather be seen in person thana telehealth despite her drive. Vitals: 05/06/23 1359 BP: 138/60 BP Source: Arm, Left Upper Pulse: 86 SpO2: 97% O2 Device: None (Room air) PainSc: Zero Weight: 74.4 kg (164 lb) Height: 160 cm (5' 3") Body mass index is 29.05 kg/m. Wt Readings from Last 3 Encounters: 05/06/23 74.4 kg (164 lb) 05/01/23 79.1 kg (174 lb 6.1 oz) Past Medical History Patient Active Problem List Diagnosis Date Noted Systolic dysfunction 04/28/2023 Atrial fibrillation with RVR (HCC) 04/24/2023 Encephalopathy 04/23/2023 Acute hypoxemic respiratory failure (HCC) 04/23/2023 Pleural effusion 04/23/2023 Tachycardia 04/23/2023 Pneumonia 04/23/2023 UTI (urinary tract infection) 04/23/2023 Bacteremia 04/23/2023 Septic shock (HCC) 04/22/2023 ROS see HPI Physical Exam Alert and oriented with appropriate communication skills JVD 6 cm at 90 degrees with (-) HJR No abdominal distention No LE edema Breathing comfortably without wheezing, rales or rhonchi Auscultated heart with normal S1S2, regular rhythm, no obvious murmur She was in a wheelchair today in clinic Cardiovascular Studies Echo 04/24/23 Difficult to accurately assess the LV ejection fraction due to underlying atrial fibrillation and uncontrolled heart rates. Abnormal septal motion due to conduction abnormality. The LV EF is currently estimated at 30 to 35% Mildly reduced RV function Atria normal in size Normal valve morphology Mild mitral regurgitation seen Mild to moderate TR noted Elevated central venous pressure Mildly elevated PA systolic pressure Trivial AI is present Consider reassessing cardiac function when rhythm is regular or the rates are better controlled There is no prior study available for comparison Problems Addressed Today Encounter Diagnoses Name Primary? Tachycardia Yes Atrial fibrillation with RVR (HCC) Systolic dysfunction Assessment and Plan HFrEF related to etiology undefined at this time - Last LVEF 30-35% from echo 04/24/23 - NYHA class II Stage B - Dry weight: 171-176 pounds, down to 164 pounds in clinic [facility] Lab Results Component Value Date NTPROBNP 7,917.0 (H) 04/28/2023 NTPROBNP 11,158.0 (H) 04/22/2023 > PLAN: - euvolemic on exam today - LVEF on stress testing improved to 50% GDMT Current Dose Changes made at visit BB Toprol XL 50 mg daily ACEI/ARB/ARNI No ALONZO/ARB/ARNI due to hypotension Losartan 25 mg daily Aldosterone antagonist plan to add next visit if renal function stable after adding ARB SGLT2i No SGLT2 inhibitor at this time due to recent urosepsis Hydralazine/Nitrate NA Ivabradine NA HRMT No ICD - titrating GDMT Diuretics No loop diuretic at this time Cardiac rehab Candidacy for Adv HF therapies NSTEMI - stress testing with "Predominantly fixed defect" Treated with plavix and atorvastatin > plan for outpatient [facility] upon recovery from above Atrial Fibrillation, new onset: LBBB A/c with apixaban 5 mg BID Treated with Toprol XL 50 mg daily Renal Surveillance: Lab Results Component Value Date CR 0.5 05/06/2023 CR 0.76 05/01/2023 Diabetic screening > Lab Results Component Value Date/Time HGBA1C 6.4 (H) 04/26/2023 02:17 AM Dyslipidemia > cont on atorvastatin 40 mg QHS Lab Results Component Value Date/Time CHOL 123 04/29/2023 04:53 AM TRIG 116 04/29/2023 04:53 AM HDL 26 (L) 04/29/2023 04:53 AM LDL 81 04/29/2023 04:53 AM VLDL 23 04/29/2023 04:53 AM NONHDLCHOL 97 04/29/2023 04:53 AM Current Medications (including today's revisions) apixaban (ELIQUIS) 5 mg tablet Take one tablet by mouth twice daily. atorvastatin (LIPITOR) 40 mg tablet Take one tablet by mouth daily. clopiDOGreL (PLAVIX) 75 mg tablet Take one tablet by mouth daily. hyoscyamine (ANASPAZ) 0.125 [address] rapid dissolve tablet Place one tablet under tongue every 4 hours as needed. lidocaine hcl viscous (LIDOCAINE VISCOUS) 2 % solution Swish and Spit 5 mL by mouth as directedfour times daily as needed. loperamide (IMODIUM A-D) 2 mg capsule 1 tablet every 4 hours as needed losartan (COZAAR) 25 mg tablet Take one tablet by mouth daily. Indications: chronic heart failure metoprolol succinate XL (TOPROL XL) 50 mg extended release tablet Take one tablet by mouth daily. tamsulosin (FLOMAX) 0.4 mg capsule Take one capsule by mouth daily after breakfast. Do not crush, chew or open capsules. Take 30 minutes following the same meal each day. valACYclovir (VALTREX) 1 gram tablet Take one tablet by mouth twice daily for 8 days. Indications: HSV Total Time Today was 45 minutes in the following activities: Preparing to see the patient, Obtaining and/or reviewing separately obtained history, Performing a medically appropriate examination and/or evaluation, Counseling and educating the patient/family/caregiver, Ordering medications, tests, orprocedures and Documenting clinical information in the electronic or other health record GARRETT Palma APRN, NP-C Advanced Heart Failure [facility] Collaborating physician Xavier Nunez MD documented in this encounter Miscellaneous Notes * Patient Instructions - Diane Aguilar APRN-NP - 05/06/2023 2:00 PM CDT Images from the original note were not included. Thank you for coming to [facility]. Your instructions today: Med changes today: add losartan 25 mg once daily Procedures planned: none Please log your weight, blood pressure, and heart rate on the following page and bring to all visits. Labs in 1 week: BMP Continue with 2 liter/day or 64 ounces/day fluid restriction and 2 gm (2000 mg) sodium restriction/day Return to see Any SEAN general cardiology in 6 weeks (try to arrange on same day of urology appointment if possible) Please call the office with any questions or concerns [phone] (nurse triage). To schedule or change an appointment call [phone]. At the [facility], you and your family are our top priority. You may receive a survey via email or text message that we are asking you to complete. We value your feedback toensure you are satisfied with every visit and we are continually providing the highest quality of patient care. We know your time is valuable and thank you in advance for completing the survey. Lab and test results: As a part of the CARES act, starting 10/12/2020, some results will be releasedto you via [employer] immediately and automatically. You may see results before your provider sees them; however, your provider will review all these results and then they, or one of their team, will notify you of result information and recommendations. Critical results will be addressed immediately, but otherwise, please allow us time to get back with you prior to you reaching out to us for questions. This will usually take about 72 hours for labs and 5-7 days for procedure test results. It was a pleasure to see you in clinic today. Thank you for allowing us to be a part of your healthcare. GARRETT Palma, MARIANNE-WENDY [facility] Advanced Heart Failure - [place] Team MD Marilea Doll MD Nurse Practitioners: David Gagnon, Diane Aguilar, Cheri Christianson, and Juany Rader RNs: Barbara Yang, Andreea Sorto, Karlene Galarza, Maryse Hobbs, and Juany Garcia documented in this encounter Plan of Treatment Scheduled Orders Name Type Priority Associated Diagnoses Orde r Schedule BASIC METABOLIC PANEL Lab Routine Tachycardia Atrial fibrillation with RVR (HCC) Systolic dysfunction Expected: 05/13/2023 (Approximate), Expires: 05/06/2024 documented as of this encounter Goals Goal Patient Goal Type Associated Problems Recent Progress Patient-Stated? Author Recover from illness Hospital On track(04/29/20 23 12:13 PM CDT) No Angelica Canada RN documented as of this encounter Procedures Procedure Name Priority Date/Time Associated Diagnosis Comments HC CHEM 8 PANEL, POC 05/06/2023 2:14 PM CDT documented in this encounter Results * (ABNORMAL) POC BASIC METABOLIC PANEL (BMP) (05/06/2023 2:14 PM CDT) Sodium-POC 139 137 - 147 MMOL/L 05/06/2023 2:18 PM CDT [facility] Potassium-POC 3.6 3.5 - 5.1 MMOL/L 05/06/2023 2:18 PM CDT [facility] Chloride, POC 104 98 - 110 MMOL/L 05/06/2023 2:18 PM CDT [facility] CO2, POC 24 21 - 30 MMOL/L 05/06/2023 2:18 PM CDT [facility] Anion Gap, POC 16(H) 3 - 12 05/06/2023 2:18 PM CDT [facility] Glucose, POC 98 70 - 100 MG/DL 05/06/2023 2:18 PM CDT [facility] Bun, POC 7 7 - 25 MG/DL 05/06/2023 2:18 PM CDT [facility] Creatinine, POC 0.5 0.4 - 1.00 MG/DL 05/06/2023 2:18 PM CDT [facility] Ionized Calcium-POC 1.14 1.0 - 1.3 MMOL/L 05/06/2023 2:18 PM CDT [facility] 05/06/2023 2:1 4 PM CDT 05/06/2023 2:18 PM CDT Diane Aguilar APRN-WENDY OTHER [facility] [address] [place] [address] documented in this encounter Visit Diagnoses Diagnosis Tachycardia- Primary Tachycardia, unspecified Atrial fibrillation with RVR (HCC) Atrial fibrillation Systolic dysfunction Heart disease, unspecified documented in this encounter Orders Appointment Count Last Ordered Date First Orde red Date REQUEST FOR CARDIOLOGY APPOINTMENT 1 2022 documented in this encounter Additional Health Concerns Assessment Noted Time A fall risk assessment has been complete d for the patient 05/06/2023 1:59 PM CDT documented as of this encounter Care Teams Ocularist Relationship Specialty Start Date End Date Dion Be DO [address] [place] [address] PCP - General Family Medicine 04/22/23 documented as of this encounter
--- OUTSIDE RECORDS SUMMARY | 2023-05-16 14:37 | XMS REPORT | Clinical Summary ---
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 If you do not see the information that you expected, contact Release of Information in the Health Information Management department at [phone] for further assistance in locating additional records.[facility] Allergies Active Allergy Reactions Criticality Noted Date Comments Codeine UNKNOWN Low 04/22/2023 Reported in OSH records Medications Medication Sig Dispensed Refills Start Date End Date Status apixaban (ELIQUIS) 5 mg tablet Take one tablet by mouth twice daily. 180 tablet 0 05/01/2023 Active atorvastatin (LIPITOR) 40 mg tablet Take one tablet by mouth daily. 90 tablet 0 05/01/2023 Active clopiDOGreL (PLAVIX) 75 mg tablet Take one tablet by mouth daily. 90 tablet 0 05/01/2023 Active hyoscyamine (ANASPAZ) 0.[address] dissolve tablet [address] one tablet under tongue every 4 hours as needed. 180 tablet 0 05/01/2023 Active lidocaine hcl viscous (LIDOCAINE VISCOUS) 2 % solution Swish and Spit 5 mL by mouth as directed four times daily as needed. 100 mL 0 05/01/2023 Active metoprolol succinate XL (TOPROL XL) 50 mg extended release tablet Take one tablet by mouth daily. 90 tablet 0 05/01/2023 Active tamsulosin (FLOMAX) 0.4 mg capsule Take one capsule by mouth daily after breakfast. Do not crush, chew or open capsules. Take 30 minutes following the same meal each day. 90 capsule 0 05/01/2023 Active loperamide (IMODIUM A-D) 2 mg capsule 1 tablet every 4 hours as needed 0 05/01/2023 Active losartan (COZAAR) 25 mg tabletIndication s:chronic heart failure Take one tablet by mouth daily. Indications: chronic heart failure 90 tablet 1 05/06/2023 Active nystatin (MYCOSTATIN) 100,000 units/mL oral suspension RINSE AND SPIT WITH 2 ML BY MOUTH TWICE DAILY FOR 3 WEEKS 0 04/15/2023 3 Discontinued losartan (COZAAR) 50 mg tablet Take one tablet by mouth daily. 0 3 Discontinued valACYclovir (VALTREX) 1 gram tabletIndication s:HSV Take one tablet by mouth twice daily for 8 days. Indications: HSV 0 05/01/2023 3 Active Problems Problem Noted Date Diagnosed Date Systolic dysfunction 04/28/2023 Atrial fibrillation with RVR 04/24/2023 Encephalopathy 04/23/2023 Acute hypoxemic respiratory failure 04/23/2023 Pleural effusion 04/23/2023 Tachycardia 04/23/2023 Pneumonia 04/23/2023 UTI (urinary tract infection) 04/23/2023 Bacteremia 04/23/2023 Septic shock 04/22/2023 Encounters Date Type Department Care Team Description 05/06/2023 2:00 PM CDT Office Visit Cardiovascular Medicine: [facility] [address] [place] [phone] Diane Aguilar APRN-WENDY Heart Failure 05/06/2023 Travel 04/23/2023 4:30 AM CDT - 04/23/2023 6:05 AM CDT Surgery Operating Room: [address] [phone] Jerald Lindquist MD CYSTOURETHROSCOPY WITH INDWELLING URETERAL STENT INSERTION 04/23/2023 4:21 AM CDT Anesthesia Event Operating Room: [address] [phone] Oscar Del Toro MD Filsinger, Gilberto F Jr., [facility] 04/22/2023 5:49 PM CDT - 05/01/2023 5:00 PM CDT Hospital Encounter Patient Care Unit 46: [facility] [address] [facility] [address] [place] [address] Briana Noel MD Chia, Jessica Y, MD Reid, MD Luisito Cohn Michael T, DO Burton, Michael C, MD Sullivan, Hussain Perez MD Septic shock (HCC) Discharge Disposition: Intermediate Facility from Last 3 Months Surgical History Surgery Date Site/Laterality Comments CYSTOURETHROSCOPY 04/23/2023 Ureter/Right CYSTOURETHROSCOPY WITH INDWELLING URETERAL STENT INSERTION performed by Jerald Lindquist MD at [facility] Medical devices from this surgery are in the Medical Devices section. CYSTOURETHROSCOPY 04/23/2023 Ureter/Right CYSTOURETHROSCOPY WITH URETERAL CATHETERIZATION WITH/ WITHOUT IRRIGATION/ INSTILLATION/ URETEROPYELOGRAPHY performed by Jerald Lindquist MD at [facility] [place] Medical devices from this surgery are in the Medical Devices section. UROGRAPHY 04/23/2023 Ureter/Right RETROGRADE UROGRAPHY WITH/ WITHOUT KUB performed by Jerald Lindquist MD at [facility] Medical devices from this surgery are in the Medical Devices section. Medical History Medical History Date Comments Hypertension Social History Tobacco Use Types Packs/Day Years [...] on file Sexual Orientation Not on file Obstetrics History Last Filed Vital Signs Vital Sign Reading Time Taken Comments Blood Pressure 138/60 05/06/2023 1:59 PM CDT Pulse 86 05/06/2023 1:59 PM CDT Temperature 36.6 C (97.8 F) 05/01/2023 3:24 PM C DT Respiratory Rate - - Oxygen Saturation 97% 05/06/2023 1:59 PM CDT Inhaled Oxygen Concentration - - Weight 74.4 kg (164 lb) 05/06/2023 1:59 PM CDT Height 160 cm (5' 3") 05/06/2023 1:59 PM CDT Body Mass Index 29.05 05/06/2023 1:59 PM CDT Plan of Treatment Health Maintenance Due Date Last Done Comments MEDICARE ANNUAL WELLNESS VISIT 1945 PNEUMOCOCCAL VACCINE 65+ YRS (1 - PCV) 1949 DTAP/TDAP VACCINES (1 - Tdap) 1961 HEPATITIS C SCREENING 1961 PHYSICAL (COMPREHENSIVE) EXAM 1961 OSTEOPOROSIS SCREENING/MONITORING 2008 DEPRESSION SCREENING 07/14/2022 INFLUENZA VACCINE (#1) 2023 , 04/07/2020, 07/04/2017 COVID-19 VACCINE (2022-2 4 season) 2023 10/23/2021, 05/05/2021, 09/13/2020, Additional history exists SHINGLES RECOMBINANT VACCINE Completed 03/22/2019, 11/16/2018 ADVANCE CARE PLANNING DISCUS SHADIA AND DOCUMENTATION Completed 04/22/2023 Goals Goal Patient Goal Type Associated Problems Recent Progress Patient-Stated? Author Rec[facility] from illness [facility] On track(04/29/20 12:13 PM CDT) No Angelica Canada RN Medical Devices Implanted Type Area Copy Manager Device Identifier Shelf Expiration Date Model / Serial / Lot Stent Ureteral 6fr 26cm Pigtail Curve Taper Tip Bladder Mark_D - [id number] Implanted:Qty: 1 on 04/23/2023 by Jerald Lindquist MD at [facility] Right: Ureter Elevation Lab [id number] / [id number] Procedures Procedure Name Priority Date/Time Associated Diagnosis Comments HC CHEM 8 PANEL, POC 05/06/2023 2:14 PM CDT POC GLUCOSE 05/01/2023 12:07 PM CDT POC GLUCOSE 05/01/2023 8:22 AM CDT HC PHOSPHOROUS, SERUM Routine 05/01/2023 5:31 AM CDT HC COMPREHENSIVE METABOLIC PANEL Routine 05/01/2023 5:31 AM CDT HC CBC W/ AUTOMATED DIFF Routine 023 5:31 AM CDT HC MAGNESIUM (MGCT) Routine 05/01/2023 5:31 AM CDT POC GLUCOSE 04/30/2023 11:04 PM CDT POC GLUCOSE 04/30/2023 5:02 PM CDT COVID-19 (SARS-COV-2) PCR STAT 04/30/2023 2:21 PM CDT POC GLUCOSE 04/30/2023 11:12 AM CDT POC GLUCOSE 04/30/2023 8:22 AM CDT HC PHOSPHOROUS, SERUM Routine 04/30/2023 4:55 AM CDT HC COMPREHENSIVE METABOLIC PANEL Routine 04/30/2023 4:55 AM CDT HC CBC W/ AUTOMATED DIFF Routine 023 4:55 AM CDT HC MAGNESIUM (MGCT) Routine 04/30/2023 4:55 AM CDT POC GLUCOSE 04/29/2023 9:32 PM CDT POC GLUCOSE 04/29/2023 4:44 PM CDT POC GLUCOSE 04/29/2023 12:01 PM CDT POC GLUCOSE 04/29/2023 8:56 AM CDT NM STRESS ECG Routine 04/29/2023 8:55 AM CDT NM PET ABSOLUTE QUANT MYOCARDIAL BLOOD FLOW Routine 04/29/2023 8:55 AM CDT NM PET/CT MYOCARDIAL IMAGING PERFUSION STRESS AND REST Routine 04/29/2023 8:55 AM CDT HC LIPID-5:CHOL/TRG/HDL/LDL +VLDL Routine 04/29/2023 4:53 AM CDT HC PHOSPHOROUS, SERUM Routine 04/29/2023 4:53 AM CDT HC COMPREHENSIVE METABOLIC PANEL Routine 04/29/2023 4:53 AM CDT HC CBC W/ AUTOMATED DIFF Routine 023 4:53 AM CDT HC MAGNESIUM (MGCT) Routine 04/29/2023 4:53 AM CDT POC GLUCOSE 04/29/2023 3:42 AM CDT POC GLUCOSE 04/28/2023 8:54 PM CDT POC GLUCOSE 04/28/2023 3:40 PM CDT US DOPPLER VENOUS LEFT Routine 3:10 PM CDT CHEST 2 VIEWS Routine 04/28/2023 2:52 PM CDT POC GLUCOSE 04/28/2023 12:34 PM CDT POC GLUCOSE 04/28/2023 7:48 AM CDT HC NT-PRO-BNP Routine 04/28/2023 5:44 AM CDT HC PHOSPHOROUS, SERUM Add on 04/28/2023 5:44 AM CDT HC COMPREHENSIVE METABOLIC PANEL Routine 04/28/2023 5:44 AM CDT HC CBC W/ AUTOMATED DIFF Routine 023 5:44 AM CDT HC MAGNESIUM (MGCT) Routine 04/28/2023 5:44 AM CDT POC GLUCOSE 04/28/2023 4:53 AM CDT POC GLUCOSE 04/28/2023 12:28 AM CDT POC GLUCOSE 04/27/2023 8:32 PM CDT POC GLUCOSE 04/27/2023 5:18 PM CDT POC GLUCOSE 04/27/2023 12:38 PM CDT POC GLUCOSE 04/27/2023 9:03 AM CDT HC COMPREHENSIVE METABOLIC PANEL Routine 04/27/2023 5:02 AM CDT HC CBC W/ AUTOMATED DIFF Routine 023 5:02 AM CDT HC PHOSPHOROUS, SERUM (PO4CT) Routine 04/27/2023 5:02 AM CDT HC MAGNESIUM (MGCT) Routine 04/27/2023 5:02 AM CDT POC GLUCOSE 04/27/2023 4:53 AM CDT POC GLUCOSE 04/27/2023 12:42 AM CDT POC GLUCOSE 04/26/2023 9:14 PM CDT POC GLUCOSE 04/26/2023 8:23 PM CDT POC GLUCOSE 04/26/2023 11:54 AM CDT POC GLUCOSE 04/26/2023 9:18 AM CDT HC BLOOD GASES;(CALCULATED 02) Routine 04/26/2023 9:13 AM CDT HC AMMONIA STAT 04/26/2023 9:13 AM CDT POC GLUCOSE 04/26/2023 4:12 AM CDT HC HEMOGLOBIN A1C STAT 04/26/2023 2:17 AM CDT HC COMPREHENSIVE METABOLIC PANEL Routine 04/26/2023 2:17 AM CDT HC CBC W/ AUTOMATED DIFF Routine 023 2:17 AM CDT HC PHOSPHOROUS, SERUM (PO4CT) Routine 04/26/2023 2:17 AM CDT HC MAGNESIUM (MGCT) Routine 04/26/2023 2:17 AM CDT POC GLUCOSE 04/25/2023 11:54 PM CDT ECG 12-LEAD STAT 04/25/2023 9:38 PM CDT POC GLUCOSE 04/25/2023 7:57 PM CDT BASIC METABOLIC PANEL STAT 04/25/2023 4:31 PM CDT POC GLUCOSE 04/25/2023 4:30 PM CDT HC C DIFFICILE BY PCR Routine 04/25/2023 8:08 AM CDT HC PHOSPHOROUS, SERUM (PO4CT) Routine 04/25/2023 2:11 AM CDT HC MAGNESIUM (MGCT) Routine 04/25/2023 2:11 AM CDT HC COMPREHENSIVE METABOLIC PANEL Routine 04/25/2023 2:11 AM CDT HC CBC W/ AUTOMATED DIFF Routine 023 2:11 AM CDT FEEDING TUBE PLCMNT (ABD/CHEST LMTD) Routine 04/24/2023 3:13 PM CDT BASIC METABOLIC PANEL STAT 04/24/2023 12:25 PM CDT ECG 12-LEAD STAT 04/24/2023 12:24 PM CDT 2D + DOPPLER ECHO W/ CONTRAST ANSHUL 04/24/2023 10:04 AM CDT ECG 12-LEAD STAT 04/24/2023 8:12 AM CDT ECG 12-LEAD STAT 04/24/2023 4:36 AM CDT HC HIGH SENSITIVITY TROPONIN I RANDOM Add on 04/24/2023 3:37 AM CDT HC URIC ACID Routine 04/24/2023 3:37 AM CDT HC PHOSPHOROUS, SERUM (PO4CT) Routine 04/24/2023 3:37 AM CDT HC MAGNESIUM (MGCT) Routine 04/24/2023 3:37 AM CDT HC COMPREHENSIVE METABOLIC PANEL Routine 04/24/2023 3:37 AM CDT HC CBC W/ AUTOMATED DIFF Routine 023 3:37 AM CDT CULTURE-BLOOD W/SENSITIVITY Routine 04/23/2023 3:57 PM CDT HC HIGH SENSITIVITY TROPONIN I RANDOM STAT 04/23/2023 2:37 PM CDT HC HIGH SENSITIVITY TROPONIN I RANDOM STAT 04/23/2023 10:29 AM CDT CHEST SINGLE VIEW STAT 04/23/2023 6:40 AM CDT HC BLOOD GASES;(CALCULATED 02) STAT 04/23/2023 6:18 AM CDT HC HIGH SENSITIVITY TROPONIN I RANDOM Specimen in Lab 04/23/2023 6:18 AM CDT HC MRSA PNEUMONIA SCREEN Routine 023 6:10 AM CDT CULTURE-URINE W/SENSITIVITY STAT 04/23/2023 5:12 AM CDT Ureteral stone ANESTHESIA ARTERIAL LINE INSERTION Routine 04/23/2023 4:30 AM CDT ANESTHESIA ETT Routine 04/23/2023 4:30 AM CDT RETROGRADE UROGRAPHY WITH/ WITHOUT KUB 04/23/2023 4:21 AM CDT Ureteral stone CYSTOURETHROSCOPY WITH URETERAL CATHETERIZATION WITH/ WITHOUT IRRIGATION/ INSTILLATION/ URETEROPYELOGRAPHY 04/23/2023 4:21 AM CDT Ureteral stone CYSTOURETHROSCOPY WITH INDWELLING URETERAL STENT INSERTION 04/23/2023 4:21 AM CDT Ureteral stone HC BLOOD GASES;(CALCULATED 02) Routine 04/23/2023 4:06 AM CDT HC LACTIC ACID - BG SYRINGE STAT 04/23/2023 3:46 AM CDT HC PHOSPHOROUS, SERUM (PO4CT) Routine 04/23/2023 3:46 AM CDT HC MAGNESIUM (MGCT) Routine 04/23/2023 3:46 AM CDT HC COMPREHENSIVE METABOLIC PANEL Routine 04/23/2023 3:46 AM CDT HC CBC W/ AUTOMATED DIFF Routine 023 3:46 AM CDT GRAM STAIN 04/23/2023 2:17 AM CDT CULTURE-RESP,LOWER W/SENSITIVITY Routine 04/23/2023 2:17 AM CDT HC HIGH SENSITIVITY TROPONIN I RANDOM Specimen in Lab 04/23/2023 1:11 AM CDT HC LACTIC ACID - BG SYRINGE STAT 04/23/2023 1:06 AM CDT HC LACTIC ACID - BG SYRINGE STAT 04/22/2023 9:47 PM CDT HC NT-PRO-BNP Specimen in Lab 04/22/2023 8:03 PM CDT HC PROLCALCITONIN (PROCA) Specimen in Lab 04/22/2023 8:03 PM CDT CULTURE-BLOOD W/SENSITIVITY Routine 04/22/2023 8:03 PM CDT CHEST SINGLE VIEW STAT 04/22/2023 7:58 PM CDT HC INFLUENZA A/B AND RSVPCR Routine 04/22/2023 6:59 PM CDT COVID-19 (SARS-COV-2) PCR Routine 04/22/2023 6:59 PM CDT ECG 12-LEAD STAT 04/22/2023 6:54 PM CDT URINALYSIS MICROSCOPIC REFLEX TO CULTURE Routine 04/22/2023 6:48 PM CDT HC URINALYSIS UAR Routine 04/22/2023 6:48 PM CDT CULTURE-URINE W/SENSITIVITY 04/22/2023 6:48 PM CDT CULTURE-BLOOD W/SENSITIVITY Routine 04/22/2023 6:48 PM CDT HC SODIUM, POC 04/22/2023 6:47 PM CDT HC POTASSIUM, POC 04/22/2023 6:47 PM CDT HC HEMATOCRIT POC 04/22/2023 6:47 PM CDT HC BLOOD GAS, POC 04/22/2023 6:47 PM CDT POC GLUCOSE 04/22/2023 6:44 PM CDT HC PHOSPHOROUS, SERUM Routine 04/22/2023 6:40 PM CDT HC MAGNESIUM Routine 04/22/2023 6:40 PM CDT HC CALCIUM IONIZED Routine 04/22/2023 6:40 PM CDT HC LACTIC ACID - BG SYRINGE Routine 04/22/2023 6:40 PM CDT HC COMPREHENSIVE METABOLIC PANEL Routine 04/22/2023 6:40 PM CDT HC PTT(APTT) Routine 04/22/2023 6:40 PM CDT HC PT(INR) Routine 04/22/2023 6:40 PM CDT HC CBC W/ AUTOMATED DIFF Routine 023 6:40 PM CDT TELEMETRY STRIPS-SCAN 04/22/2023 12:00 AM CDT TELEMETRY STRIPS-SCAN 04/22/2023 12:00 AM CDT TELEMETRY STRIPS-SCAN 04/22/2023 12:00 AM CDT TELEMETRY STRIPS-SCAN 04/22/2023 12:00 AM CDT TELEMETRY STRIPS-SCAN 04/22/2023 12:00 AM CDT TELEMETRY STRIPS-SCAN 04/22/2023 12:00 AM CDT TELEMETRY STRIPS-SCAN 04/22/2023 12:00 AM CDT TELEMETRY STRIPS-SCAN 04/22/2023 12:00 AM CDT TELEMETRY STRIPS-SCAN 04/22/2023 12:00 AM CDT TELEMETRY STRIPS-SCAN 04/22/2023 12:00 AM CDT TELEMETRY STRIPS-SCAN 04/22/2023 12:00 AM CDT TELEMETRY STRIPS-SCAN 04/22/2023 12:00 AM CDT TELEMETRY STRIPS-SCAN 04/22/2023 12:00 AM CDT TELEMETRY STRIPS-SCAN 04/22/2023 12:00 AM CDT TELEMETRY STRIPS-SCAN 04/22/2023 12:00 AM CDT TELEMETRY STRIPS-SCAN 04/22/2023 12:00 AM CDT TELEMETRY STRIPS-SCAN 04/22/2023 12:00 AM CDT TELEMETRY STRIPS-SCAN 04/22/2023 12:00 AM CDT TELEMETRY STRIPS-SCAN 04/22/2023 12:00 AM CDT TELEMETRY STRIPS-SCAN 04/22/2023 12:00 AM CDT TELEMETRY STRIPS-SCAN 04/22/2023 12:00 AM CDT TELEMETRY STRIPS-SCAN 04/22/2023 12:00 AM CDT TELEMETRY STRIPS-SCAN 04/22/2023 12:00 AM CDT TELEMETRY STRIPS-SCAN 04/22/2023 12:00 AM CDT TELEMETRY STRIPS-SCAN 04/22/2023 12:00 AM CDT TELEMETRY STRIPS-SCAN 04/22/2023 12:00 AM CDT TELEMETRY STRIPS-SCAN 04/22/2023 12:00 AM CDT TELEMETRY STRIPS-SCAN 04/22/2023 12:00 AM CDT TELEMETRY STRIPS-SCAN 04/22/2023 12:00 AM CDT TELEMETRY STRIPS-SCAN 04/22/2023 12:00 AM CDT TELEMETRY STRIPS-SCAN 04/22/2023 12:00 AM CDT TELEMETRY STRIPS-SCAN 04/22/2023 12:00 AM CDT TELEMETRY STRIPS-SCAN 04/22/2023 12:00 AM CDT TELEMETRY STRIPS-SCAN 04/22/2023 12:00 AM CDT TELEMETRY STRIPS-SCAN 04/22/2023 12:00 AM CDT TELEMETRY STRIPS-SCAN 04/22/2023 12:00 AM CDT TELEMETRY STRIPS-SCAN 04/22/2023 12:00 AM CDT TELEMETRY STRIPS-SCAN 04/22/2023 12:00 AM CDT TELEMETRY STRIPS-SCAN 04/22/2023 12:00 AM CDT from Last 3 Months Results * (ABNORMAL) POC BASIC METABOLIC PANEL (BMP) (05/06/2023 2:14 PM CDT) Sodium-POC 139 137 - 147 MMOL/L 05/06/2023 2:18 PM CDT [facility] Potassium-POC 3.6 3.5 - 5.1 MMOL/L 05/06/2023 2:18 PM CDT [facility] Chloride, POC 104 98 - 110 MMOL/L 05/06/2023 2:18 PM CDT [facility] CO2, POC 24 21 - 30 MMOL/L 05/06/2023 2:18 PM CDT [facility] Anion Gap, POC 16(H) 3 - 12 05/06/2023 2:18 PM CDT [facility] Glucose, POC 98 70 - 100 MG/DL 05/06/2023 2:18 PM CDT [facility] Bun, POC 7 7 - 25 MG/DL 05/06/2023 2:18 PM CDT [facility] Creatinine, POC 0.5 0.4 - 1.00 MG/DL 05/06/2023 2:18 PM CDT [facility] Ionized Calcium-POC 1.14 1.0 - 1.3 MMOL/L 05/06/2023 2:18 PM CDT [facility] 05/06/2023 2:1 4 PM CDT 05/06/2023 2:18 PM CDT Diane Aguilar APRN-WENDY OTHER LABORATORY [facility] [address] [place] [address] * (ABNORMAL) POC GLUCOSE (05/01/2023 12:07 PM CDT) Only the most recent of32 resultswithin the time period is included. Glucose, POC 119(H) 70 - 100 MG/DL 05/01/2023 12:24 PM CDT REPLACED BY [facility] DEPT PATH AND LAB MEDICINE POC 05/01/2023 12:0 7 PM CDT 05/01/2023 12:24 PM CDT Hussain Slaughter MD OTHER LABORATORY [facility] PATH AND LAB MEDICINE POC [address] [place] [address] * MAGNESIUM CELLULAR THERAPEUTICS (05/01/2023 5:31 AM CDT) Only the most recent of9 resultswithin the time period is included. [facility] Magnesium 2.3 1.6 - 2.6 mg/dL 05/01/2023 7:00 AM CDT [facility] DE[facility] PATH AND LAB MEDICINE Comment:SLT HEMOLYSIS BLOOD / Unknown 05/01/2023 5:31 AM CDT 05/01/2023 5:32 AM CDT Brian Vogel CARE MANAGEMENT ASSOCIATE-POLITICAL SCIENCE RESEARCH ASSISTANT LABORATORY ORDERABLE S Performing Organization Address [facility]/ZIP Co de Phone Number [facility] PATH AND LAB MEDICINE [address] * (ABNORMAL) CBC AND DIFF (05/01/2023 5:31 AM CDT) Only the most recent of10 resultswithin the time period is included. [facility] White Blood Cells 9.8 4.5 - 11.0 K/UL 05/01/2023 6:43 AM CDT REPLACED BY [facility] DEPT PATH AND LAB MEDICINE RBC 3.89(L) 4.0 - 5.0 M/UL 05/01/2023 6:43 AM CDT [facility] PATH AND LAB MEDICINE Hemoglobin 11.3(L) 12.0 - 15.0 GM/DL 05/01/2023 6:43 AM CDT [facility] DEPT PATH AND LAB MEDICINE Hematocrit 35.0(L) 36 - 45 % 05/01/2023 6:43 AM CDT [facility] DEPT PATH AND LAB MEDICINE MCV 89.9 80 - 100 FL 05/01/2023 6:43 AM CDT [facility] DEPT PATH AND LAB MEDICINE MCH 28.9 26 - 34 PG 05/01/2023 6:43 AM CDT [facility] DEPT PATH AND LAB MEDICINE MCHC 32.2 32.0 - 36.0 G/DL 05/01/2023 6:43 AM CDT [facility] DEPT PATH AND LAB MEDICINE RDW 14.2 11 - 15 % 05/01/2023 6:43 AM CDT [facility] DEPT PATH AND LAB MEDICINE Platelet Count 290 150 - 400 K/UL 05/01/2023 6:43 AM CDT [facility] DEPT PATH AND LAB MEDICINE MPV 8.6 7 - 11 FL 05/01/2023 6:43 AM CDT [facility] PATH [facility] LAB MEDICINE Neutrophils 71 41 - 77 % 05/01/2023 6:43 AM CDT [facility] DE[facility] PATH AND LAB MEDICINE Lymphocytes 18(L) 24 - 44 % 05/01/2023 6:43 AM CDT [facility] DE[facility] PATH AND LAB MEDICINE Monocytes 9 4 - 12 % 05/01/2023 6:43 AM CDT [facility] DE[facility] PATH AND LAB MEDICINE Eosinophils 2 0 - 5 % 05/01/2023 6:43 AM CDT [facility] DE[facility] PATH AND LAB MEDICINE Basophils 0 0 - 2 % 05/01/2023 6:43 AM CDT [facility] DEPT PATH AND LAB MEDICINE Absolute Neutrophil Count 6.94 1.8 - 7.0 K/UL 05/01/2023 6:43 AM CDT [facility] DEPT PATH AND LAB MEDICINE Absolute Lymph Count 1.71 1.0 - 4.8 K/UL 05/01/2023 6:43 AM CDT [facility] PATH AND LAB MEDICINE Absolute Monocyte Count 0.88(H) 0 - 0.80 K/UL 05/01/2023 6:43 AM CDT [facility] DEPT PATH AND LAB MEDICINE Absolute Eosinophil Count 0.23 0 - 0.45 K/UL 05/01/2023 6:43 AM CDT [facility] PATH AND LAB MEDICINE Absolute Basophil Count 0.02 0 - 0.20 K/UL 05/01/2023 6:43 AM CDT [facility] PATH AND LAB MEDICINE BLOOD / Unknown 05/01/2023 5:31 AM CDT 05/01/2023 5:32 AM CDT Hussain Slaughter MD LABORATORY ORDERAB LES Performing Organization Address City/[facility]/ZIP Co de Phone Number [facility] PATH AND LAB MEDICINE [address] [place] [address], * PHOSPHORUS (05/01/2023 5:31 AM CDT) Only the most recent of5 resultswithin the time period is included. Phosphorus 3.3 2.0 - 4.5 MG/DL 05/01/2023 7:00 AM CDT [facility] PATH AND LAB MEDICINE BLOOD / Unknown 05/01/2023 5:31 AM CDT 05/01/2023 5:32 AM CDT Hussain Slaughter MD LABORATORY ORDERAB LES Performing Organization Address [facility] Co de Phone Number [facility] PATH AND LAB MEDICINE [address] [place] [address], * (ABNORMAL) COMPREHENSIVE METABOLIC PANEL (05/01/2023 5:31 AM CDT) Only the most recent of10 resultswithin the time period is included. Sodium 143 137 - 147 MMOL/L 05/01/2023 7:00 AM CDT [facility] PATH [facility] LAB MEDICINE Potassium 4.8 3.5 - 5.1 MMOL/L 05/01/2023 7:00 AM CDT [facility] PATH AND LAB MEDICINE Comment:SLT HEMOLYSIS Chloride 116(H) 98 - 110 MMOL/L 05/01/2023 7:00 AM CDT [facility] DEPT PATH AND LAB MEDICINE Glucose 93 70 - 100 MG/DL 05/01/2023 7:00 AM CDT [facility] DEPT PATH AND LAB MEDICINE Blood Urea Nitrogen 14 7 - 25 MG/DL 05/01/2023 7:00 AM CDT [facility] DEPT PATH AND LAB MEDICINE Creatinine 0.76 0.4 - 1.00 MG/DL 05/01/2023 7:00 AM CDT [facility] DEPT PATH AND LAB MEDICINE Calcium 8.0(L) 8.5 - 10.6 MG/DL 05/01/2023 7:00 AM CDT [facility] DEPT PATH AND LAB MEDICINE Total Protein 6.0 6.0 - 8.0 G/DL 05/01/2023 7:00 AM CDT REPLACED BY [facility] DEPT PATH AND LAB MEDICINE Total Bilirubin 0.5 0.3 - 1.2 MG/DL 05/01/2023 7:00 AM CDT REPLACED BY [facility] DEPT PATH AND LAB MEDICINE Albumin 2.6(L) 3.5 - 5.0 G/DL 05/01/2023 7:00 AM CDT REPLACED BY [facility] DEPT PATH AND LAB MEDICINE Alk Phosphatase 29 25 - 110 U/L 05/01/2023 7:00 AM CDT REPLACED BY [facility] DEPT PATH AND LAB MEDICINE AST (SGOT) 39 7 - 40 U/L 05/01/2023 7:00 AM CDT REPLACED BY [facility] DE[facility] PATH AND LAB MEDICINE CO2 15(L) 21 - 30 MMOL/L 05/01/2023 7:00 AM CDT REPLACED BY [facility] DE[facility] PATH AND LAB MEDICINE ALT (SGPT) 34 7 - 56 U/L 05/01/2023 7:00 AM CDT REPLACED BY [facility] DE[facility] PATH AND LAB MEDICINE Anion Gap 12 3 - 12 05/01/2023 7:00 AM CDT REPLACED BY [facility] DE[facility] PATH AND LAB MEDICINE eGFR >60 >60 mL/min 05/01/2023 7:00 AM CDT REPLACED BY [facility] PATH AND LAB MEDICINE Comment:eGFR calculated nicolás g the CKD-EPIcr_R equation BLOOD / Unknown 05/01/2023 5:31 AM CDT 05/01/2023 5:32 AM CDT Hussain Slaughter MD LABORATORY ORDERAB LES [facility] PATH AND LAB MEDICINE [address] [place] [address], * COVID-19 (SARS-COV-2) PCR (04/30/2023 2:21 PM CDT) Only the most recent of2 resultswithin the time period is included. COVID-19 (SARS-CoV-2) PCR Source FLOCKED SWAB NASOPHARYNG EAL 04/30/2023 2:21 PM CDT [facility] PATH AND LAB MEDICINE COVID-19 (SARS-CoV-2) PCR NOT DETECTED DN-NOT DETECTED 04/30/2023 3:35 PM CDT [facility] PATH AND LAB MEDICINE Comment: This assay is designed to detect the N2, E, and RdRp genes of SARS-CoV-2 using nucleic acid amplification. A Not Detected result does not preclude the possibility of SARS-CoV-2 infection, since the adequacy of sample collection and/or low viral burden may result in the presence of viral nucleic acids below the analytical sensitivity of this test method. Test results should be used along with other clinical and laboratory data in making the diagnosis. Test parameters have not been validated for screening in asymptomatic patients. This test has not been FDA cleared or approved. This test is authorized for use under the FDA Emergency Use Authorization and performance characteristics have been verified by the [facility] clinical laboratory. Fact sheet for providers: https://www.fda.gov/media/027008/download Fact sheet for patients: https://www.fda.gov/media/785072/download Flocked Swab NASOPHARYNGEAL STRUCTURE / Unknown 04/30/2023 2:21 PM CDT 04/30/2023 2:28 PM CDT Hussain Slaughter MD MICROBIOLOGY ORDER KRYSTIN [facility] PATH AND LAB MEDICINE [address] [place] [address], [place] * NM PET ABSOLUTE QUANT MYOCARDIAL BLOOD FLOW (04/29/2023 8:55 AM CDT) Anatomical Region Laterality Modality CHEST Nuclear Medicine 04/29/2023 9:0 1 AM CDT Impressions 04/29/2023 9:39 AM CDT 1. Predominantly fixed defect is identified involving the mid septal wall for left ventricle extending to the anterior and inferior wall. On quantification, the area of reversibility is approximately 4-8% of the left ventricular myocardium (12 mL left ventricular myocardial volume). Findings are compatible with myocardial infarction with mild alvaro-infarct ischemia 2. No focal hypokinesia involving the mid septal wall of the left ventricle seen pronounced during stress with the rest of the left ventricular wall demonstrating normal wall motion. 3. Normal rest and stress left ventricular ejection fraction at 51% and 50% respectively. 4. Normal rest and stress left ventricular myocardial blood flow in all 3 vascular territories with myocardial blood flow reserves all in excess of 2. 5. Trace coronary artery calcifications. 6. Hypodensity of the blood pool in relation to the myocardium, compatible with anemia. 7. Small bilateral pleural effusion greater in the right with subjacent predominantly bilateral lower lobe consolidation, likely atelectasis. Finalized by Victoriano Cole M.D. on 04/29/2023 9:39 AM. Dictated by Victoriano Cole M.D. on 04/29/2023 9:01 AM. Narrative 04/29/2023 9:39 AM CDT LOW DOSE/HIGH DOSE REST/STRESS REGADENOSON N-13 AMMONIA PET/CT CLINICAL HISTORY:77 years Female with cp Referring Physician:BRIANA NOEL MD; BARBARA ANDERSEN. Supervising Physician:Anthony Coulter MD; Victoriano Cole MD. TECHNIQUE: Written informed consent was obtained for the study. Initial CT scan was acquired for attenuation correction of the rest images. Intravenous administration of 6mCi of N13 Ammonia was performed followed by saline flush. Resting PET images were acquired immediately for 10 minutes. 20minutes following the rest images, a total of 0.4 mg Regadenoson was injected over 10 seconds at a dosage of 0.08 mg/mL immediately followed by a 10 mL normal saline flush. Within 60 seconds, 14.7 mCi of N13 Ammonia was injected intravenously followed with saline flush. Peak stress images were acquired with ECG - gating starting at the beginning of the infusion of N-13 Ammonia for [address] scan was acquired for attenuation correction of the stress images after PET image acquisition. EKG findings evaluated by Anthony Coulter M.D. CLINICAL RESPONSE: Baseline: Heart rate: 83 beats per minute. Blood pressure: 130/65 mmHg After Regadenoson injection: Heart rate: 99 beats per minute. At the end of Regadenoson injection: Blood pressure: 113/57 mmHg ELECTROCARDIOGRAPHIC FINDINGS: Baseline electrocardiogram shows normal sinus rhythm with left bundle branch block. With pharmacological stress the patient had no diagnostic ST segment depression. Conclusion: This is a nondiagnostic pharmacological stress electrocardiogram. PET/CT FINDINGS: Rest/Stress left ventricular myocardial perfusion images demonstrate predominantly fixed defect is identified involving the mid septal wall for left ventricle extending to the anterior and inferior wall. On quantification, the area of reversibility is approximately 4-8% of the left ventricular myocardium (12 mL left ventricular myocardial volume). Gated images show mild hypokinesia involving the mid septal wall for left ventricle especially during stress with the rest of the the left ventricle marr demonstrate normal wall motion. Left Ventricular Ejection fraction: Rest : 51%. Stress: 50% TID: 1.12 SSS: 16 SRS:13 SDS:3 Resting left ventricular end diastolic volume= 97 mL Resting extent of left ventricular defect = 22% (27 mL left ventricular myocardial volume) Stress extent of left ventricular defect= 30% (39 mL left ventricular myocardium volume) Quantitative analysis - Rest and Stress left ventricular myocardial blood flow in all 3 vascular territories are within normal limits. Myocardial flow reserves are in excess of 2. MBF(Stress) MBF(rest) MFR LAD 2.21 1.04 2.13 LCx 2.63 1.18 2.24 RCA 2.18 1.05 2.09 Global 2.30 1.08 2.14 *MBF [mL/g/min] Preserved global stress MBF and MFR of >=2 confers low-risk (with NPV of >=95%). Diminished global MFR < 1.5 confers high-risk. Abnormal MBF or MFR may be secondary to epicardial or microvascular disease. Additional CT Findings: The heart appears to be normal in size. No pericardial effusion. Trace coronary artery calcifications. The thoracic aorta is normal in caliber with mild atherosclerotic calcifications. Mild aortic valvular calcifications. Hypodensity of the blood pool in relation to the myocardium, compatible with anemia. Evaluation of the lung parenchyma somewhat limited due to respiratory motion artifacts. Small bilateral pleural effusions greater in the right with subjacent predominantly bilateral lower lobe consolidation likely atelectasis. No discrete pulmonary mass is appreciated in the visualized aerated lung stevenson. Thoracic spondylosis. Procedure Note Victoriano Cole MD - 04/29/2023 LOW DOSE/HIGH DOSE REST/STRESS REGADENOSON N-13 AMMONIA PET/CT CLINICAL HISTORY:77 years Female with cp Referring Physician:BRIANA NOEL MD; BARBARA ANDERSEN. Supervising Physician:Anthony Coulter MD; Victoriano Cole MD. TECHNIQUE: Written informed consent was obtained for the study. Initial CT scan wasacquired for attenuation correction of the rest images. Intravenousadministration of 6mCi of N13 Ammonia was performed followed by salineflush. Resting PET images were acquired immediately for 10 minutes.20minutes following the rest images, a total of 0.4 mg Regadenoson wasinjected over 10 seconds at a dosage of 0.08 mg/mL immediately followed bya 10 mL normal saline flush. Within 60 seconds, 14.7 mCi of N13 Ammoniawas injected intravenously followed with saline flush. Peak stress imageswere acquired with ECG - gating starting at the beginning of the infusionof N-13 Ammonia for [address] scan was acquired for attenuationcorrection of the stress images after PET image acquisition. EKG findings evaluated by Anthony Coulter M.D. CLINICAL RESPONSE: Baseline: Heart rate: 83 beats per minute. Blood pressure: 130/65 mmHg After Regadenoson injection: Heart rate: 99 beats per minute. At the end of Regadenoson injection: Blood pressure: 113/57 mmHg ELECTROCARDIOGRAPHIC FINDINGS: Baseline electrocardiogram shows normal sinus rhythm with left bundlebranch block. With pharmacological stress the patient had no diagnostic ST segmentdepression. Conclusion: This is a nondiagnostic pharmacological stresselectrocardiogram. PET/CT FINDINGS: Rest/Stress left ventricular myocardial perfusion images demonstratepredominantly fixed defect is identified involving the mid septal wall forleft ventricle extending to the anterior and inferior wall. Onquantification, the area of reversibility is approximately 4-8% of theleft ventricular myocardium (12 mL left ventricular myocardial volume). Gated images show mild hypokinesia involving the mid septal wall for leftventricle especially during stress with the rest of the the left ventriclewalls demonstrate normal wall motion. Left Ventricular Ejection fraction: Rest : 51%. Stress: 50% TID: 1.12 SSS: 16 SRS:13 SDS:3 Resting left ventricular end diastolic volume= 97 mL Resting extent of left ventricular defect = 22% (27 mL left ventricularmyocardial volume) Stress extent of left ventricular defect= 30% (39 mL left ventricularmyocardium volume) Quantitative analysis - Rest and Stress left ventricular myocardial blood flow in all 3 vascularterritories are within normal limits. Myocardial flow reserves are inexcess of 2. MBF(Stress) MBF(rest) MFR LAD 2.21 1.04 2.13 LCx 2.63 1.18 2.24 RCA 2.18 1.05 2.09 Global 2.30 1.08 2.14 *MBF [mL/g/min] Preserved global stress MBF and MFR of >=2 confers low-risk (with NPV of>=95%). Diminished global MFR < 1.5 confers high-risk. Abnormal MBF or MFR may be secondary to epicardial or microvasculardisease. Additional CT Findings: The heart appears to be normal in size. No pericardial effusion. Tracecoronary artery calcifications. The thoracic aorta is normal in caliberwith mild atherosclerotic calcifications. Mild aortic valvularcalcifications. Hypodensity of the blood pool in relation to themyocardium, compatible with anemia. Evaluation of the lung parenchyma somewhat limited due to respiratorymotion artifacts. Small bilateral pleural effusions greater in the rightwith subjacent predominantly bilateral lower lobe consolidation likelyatelectasis. No discrete pulmonary mass is appreciated in the visualizedaerated lung stevenson. Thoracic spondylosis. IMPRESSION 1. Predominantly fixed defect is identified involving the mid septal wallfor left ventricle extending to the anterior and inferior wall. Onquantification, the area of reversibility is approximately 4-8% of theleft ventricular myocardium (12 mL left ventricular myocardial volume).Findings are compatible with myocardial infarction with mild alvaro-infarctischemia 2. No focal hypokinesia involving the mid septal wall of the leftventricle seen pronounced during stress with the rest of the leftventricular wall demonstrating normal wall motion. 3. Normal rest and stress left ventricular ejection fraction at 51% and50% respectively. 4. Normal rest and stress left ventricular myocardial blood flow in all 3vascular territories with myocardial blood flow reserves all in excess of2. 5. Trace coronary artery calcifications. 6. Hypodensity of the blood pool in relation to the myocardium, compatiblewith anemia. 7. Small bilateral pleural effusion greater in the right with subjacentpredominantly bilateral lower lobe consolidation, likely atelectasis. Finalized by Victoriano Cole M.D. on 04/29/2023 9:39 AM. Dictated by Basim Holman on 04/29/2023 9:01 AM. Barbara Diana CARE MANAGEMENT ASSOCIATE-POLITICAL SCIENCE RESEARCH ASSISTANT NUC MED ORDERABLE S * NM STRESS ECG (04/29/2023 8:55 AM CDT) Anatomical Region Laterality Modality CHEST Nuclear Medicine 04/29/2023 9:0 1 AM CDT Impressions 04/29/2023 9:39 AM CDT 1. Predominantly fixed defect is identified involving the mid septal wall for left ventricle extending to the anterior and inferior wall. On quantification, the area of reversibility is approximately 4-8% of the left ventricular myocardium (12 mL left ventricular myocardial volume). Findings are compatible with myocardial infarction with mild alvaro-infarct ischemia 2. No focal hypokinesia involving the mid septal wall of the left ventricle seen pronounced during stress with the rest of the left ventricular wall demonstrating normal wall motion. 3. Normal rest and stress left ventricular ejection fraction at 51% and 50% respectively. 4. Normal rest and stress left ventricular myocardial blood flow in all 3 vascular territories with myocardial blood flow reserves all in excess of 2. 5. Trace coronary artery calcifications. 6. Hypodensity of the blood pool in relation to the myocardium, compatible with anemia. 7. Small bilateral pleural effusion greater in the right with subjacent predominantly bilateral lower lobe consolidation, likely atelectasis. Finalized by Victoriano Cole M.D. on 04/29/2023 9:39 AM. Dictated by Victoriano Cole M.D. on 04/29/2023 9:01 AM. Narrative 04/29/2023 9:39 AM CDT LOW DOSE/HIGH DOSE REST/STRESS REGADENOSON N-13 AMMONIA PET/CT CLINICAL HISTORY:77 years Female with cp Referring Physician:BRIANA NOEL MD; BARBARA ANDERSEN. Supervising Physician:Anthony Coulter MD; Victoriano Cole MD. TECHNIQUE: Written informed consent was obtained for the study. Initial CT scan was acquired for attenuation correction of the rest images. Intravenous administration of 6mCi of N13 Ammonia was performed followed by saline flush. Resting PET images were acquired immediately for 10 minutes. 20minutes following the rest images, a total of 0.4 mg Regadenoson was injected over 10 seconds at a dosage of 0.08 mg/mL immediately followed by a 10 mL normal saline flush. Within 60 seconds, 14.7 mCi of N13 Ammonia was injected intravenously followed with saline flush. Peak stress images were acquired with ECG - gating starting at the beginning of the infusion of N-13 Ammonia for [address] scan was acquired for attenuation correction of the stress images after PET image acquisition. EKG findings evaluated by Anthony Coulter M.D. CLINICAL RESPONSE: Baseline: Heart rate: 83 beats per minute. Blood pressure: 130/65 mmHg After Regadenoson injection: Heart rate: 99 beats per minute. At the end of Regadenoson injection: Blood pressure: 113/57 mmHg ELECTROCARDIOGRAPHIC FINDINGS: Baseline electrocardiogram shows normal sinus rhythm with left bundle branch block. With pharmacological stress the patient had no diagnostic ST segment depression. Conclusion: This is a nondiagnostic pharmacological stress electrocardiogram. PET/CT FINDINGS: Rest/Stress left ventricular myocardial perfusion images demonstrate predominantly fixed defect is identified involving the mid septal wall for left ventricle extending to the anterior and inferior wall. On quantification, the area of reversibility is approximately 4-8% of the left ventricular myocardium (12 mL left ventricular myocardial volume). Gated images show mild hypokinesia involving the mid septal wall for left ventricle especially during stress with the rest of the the left ventricle marr demonstrate normal wall motion. Left Ventricular Ejection fraction: Rest : 51%. Stress: 50% TID: 1.12 SSS: 16 SRS:13 SDS:3 Resting left ventricular end diastolic volume= 97 mL Resting extent of left ventricular defect = 22% (27 mL left ventricular myocardial volume) Stress extent of left ventricular defect= 30% (39 mL left ventricular myocardium volume) Quantitative analysis - Rest and Stress left ventricular myocardial blood flow in all 3 vascular territories are within normal limits. Myocardial flow reserves are in excess of 2. MBF(Stress) MBF(rest) MFR LAD 2.21 1.04 2.13 LCx 2.63 1.18 2.24 RCA 2.18 1.05 2.09 Global 2.30 1.08 2.14 *MBF [mL/g/min] Preserved global stress MBF and MFR of >=2 confers low-risk (with NPV of >=95%). Diminished global MFR < 1.5 confers high-risk. Abnormal MBF or MFR may be secondary to epicardial or microvascular disease. Additional CT Findings: The heart appears to be normal in size. No pericardial effusion. Trace coronary artery calcifications. The thoracic aorta is normal in caliber with mild atherosclerotic calcifications. Mild aortic valvular calcifications. Hypodensity of the blood pool in relation to the myocardium, compatible with anemia. Evaluation of the lung parenchyma somewhat limited due to respiratory motion artifacts. Small bilateral pleural effusions greater in the right with subjacent predominantly bilateral lower lobe consolidation likely atelectasis. No discrete pulmonary mass is appreciated in the visualized aerated lung stevenson. Thoracic spondylosis. Procedure Note Victoriano Cole MD - 04/29/2023 LOW DOSE/HIGH DOSE REST/STRESS REGADENOSON N-13 AMMONIA PET/CT CLINICAL HISTORY:77 years Female with cp Referring Physician:BRIANA NOEL MD; BARBARA HA-WENDY. Supervising Physician:Anthony Coulter MD; Victoriano Cole MD. TECHNIQUE: Written informed consent was obtained for the study. Initial CT scan wasacquired for attenuation correction of the rest images. Intravenousadministration of 6mCi of N13 Ammonia was performed followed by salineflush. Resting PET images were acquired immediately for 10 minutes.20minutes following the rest images, a total of 0.4 mg Regadenoson wasinjected over 10 seconds at a dosage of 0.08 mg/mL immediately followed bya 10 mL normal saline flush. Within 60 seconds, 14.7 mCi of N13 Ammoniawas injected intravenously followed with saline flush. Peak stress imageswere acquired with ECG - gating starting at the beginning of the infusionof N-13 Ammonia for [address] scan was acquired for attenuationcorrection of the stress images after PET image acquisition. EKG findings evaluated by Anthony Coulter M.D. CLINICAL RESPONSE: Baseline: Heart rate: 83 beats per minute. Blood pressure: 130/65 mmHg After Regadenoson injection: Heart rate: 99 beats per minute. At the end of Regadenoson injection: Blood pressure: 113/57 mmHg ELECTROCARDIOGRAPHIC FINDINGS: Baseline electrocardiogram shows normal sinus rhythm with left bundlebranch block. With pharmacological stress the patient had no diagnostic ST segmentdepression. Conclusion: This is a nondiagnostic pharmacological stresselectrocardiogram. PET/CT FINDINGS: Rest/Stress left ventricular myocardial perfusion images demonstratepredominantly fixed defect is identified involving the mid septal wall forleft ventricle extending to the anterior and inferior wall. Onquantification, the area of reversibility is approximately 4-8% of theleft ventricular myocardium (12 mL left ventricular myocardial volume). Gated images show mild hypokinesia involving the mid septal wall for leftventricle especially during stress with the rest of the the left ventriclewalls demonstrate normal wall motion. Left Ventricular Ejection fraction: Rest : 51%. Stress: 50% TID: 1.12 SSS: 16 SRS:13 SDS:3 Resting left ventricular end diastolic volume= 97 mL Resting extent of left ventricular defect = 22% (27 mL left ventricularmyocardial volume) Stress extent of left ventricular defect= 30% (39 mL left ventricularmyocardium volume) Quantitative analysis - Rest and Stress left ventricular myocardial blood flow in all 3 vascularterritories are within normal limits. Myocardial flow reserves are inexcess of 2. MBF(Stress) MBF(rest) MFR LAD 2.21 1.04 2.13 LCx 2.63 1.18 2.24 RCA 2.18 1.05 2.09 Global 2.30 1.08 2.14 *MBF [mL/g/min] Preserved global stress MBF and MFR of >=2 confers low-risk (with NPV of>=95%). Diminished global MFR < 1.5 confers high-risk. Abnormal MBF or MFR may be secondary to epicardial or microvasculardisease. Additional CT Findings: The heart appears to be normal in size. No pericardial effusion. Tracecoronary artery calcifications. The thoracic aorta is normal in caliberwith mild atherosclerotic calcifications. Mild aortic valvularcalcifications. Hypodensity of the blood pool in relation to themyocardium, compatible with anemia. Evaluation of the lung parenchyma somewhat limited due to respiratorymotion artifacts. Small bilateral pleural effusions greater in the rightwith subjacent predominantly bilateral lower lobe consolidation likelyatelectasis. No discrete pulmonary mass is appreciated in the visualizedaerated lung stevenson. Thoracic spondylosis. IMPRESSION 1. Predominantly fixed defect is identified involving the mid septal wallfor left ventricle extending to the anterior and inferior wall. Onquantification, the area of reversibility is approximately 4-8% of theleft ventricular myocardium (12 mL left ventricular myocardial volume).Findings are compatible with myocardial infarction with mild alvaro-infarctischemia 2. No focal hypokinesia involving the mid septal wall of the leftventricle seen pronounced during stress with the rest of the leftventricular wall demonstrating normal wall motion. 3. Normal rest and stress left ventricular ejection fraction at 51% and50% respectively. 4. Normal rest and stress left ventricular myocardial blood flow in all 3vascular territories with myocardial blood flow reserves all in excess of2. 5. Trace coronary artery calcifications. 6. Hypodensity of the blood pool in relation to the myocardium, compatiblewith anemia. 7. Small bilateral pleural effusion greater in the right with subjacentpredominantly bilateral lower lobe consolidation, likely atelectasis. Finalized by Victoriano Cole M.D. on 04/29/2023 9:39 AM. Dictated by Basim Holman on 04/29/2023 9:01 AM. Barbara Diana CARE MANAGEMENT ASSOCIATE-POLITICAL SCIENCE RESEARCH ASSISTANT NUC MED ORDERABLE S * NM PET/CT MYOCARDIAL IMAGING PERFUSION STRESS AND REST (04/29/2023 8:55 AM CDT) Anatomical Region Laterality Modality CHEST Nuclear Medicine 04/29/2023 7:4 4 AM CDT 04/29/2023 7:44 AM CDT Impressions 04/29/2023 9:39 AM CDT 1. Predominantly fixed defect is identified involving the mid septal wall for left ventricle extending to the anterior and inferior wall. On quantification, the area of reversibility is approximately 4-8% of the left ventricular myocardium (12 mL left ventricular myocardial volume). Findings are compatible with myocardial infarction with mild alvaro-infarct ischemia 2. No focal hypokinesia involving the mid septal wall of the left ventricle seen pronounced during stress with the rest of the left ventricular wall demonstrating normal wall motion. 3. Normal rest and stress left ventricular ejection fraction at 51% and 50% respectively. 4. Normal rest and stress left ventricular myocardial blood flow in all 3 vascular territories with myocardial blood flow reserves all in excess of 2. 5. Trace coronary artery calcifications. 6. Hypodensity of the blood pool in relation to the myocardium, compatible with anemia. 7. Small bilateral pleural effusion greater in the right with subjacent predominantly bilateral lower lobe consolidation, likely atelectasis. Finalized by Victoriano Cole M.D. on 04/29/2023 9:39 AM. Dictated by Victoriano Cole M.D. on 04/29/2023 9:01 AM. Narrative 04/29/2023 9:39 AM CDT LOW DOSE/HIGH DOSE REST/STRESS REGADENOSON N-13 AMMONIA PET/CT CLINICAL HISTORY:77 years Female with cp Referring Physician:BRIANA NOEL MD; BARBARA ANDERSEN. Supervising Physician:Anthony Coulter MD; Victoriano Cole MD. TECHNIQUE: Written informed consent was obtained for the study. Initial CT scan was acquired for attenuation correction of the rest images. Intravenous administration of 6mCi of N13 Ammonia was performed followed by saline flush. Resting PET images were acquired immediately for 10 minutes. 20minutes following the rest images, a total of 0.4 mg Regadenoson was injected over 10 seconds at a dosage of 0.08 mg/mL immediately followed by a 10 mL normal saline flush. Within 60 seconds, 14.7 mCi of N13 Ammonia was injected intravenously followed with saline flush. Peak stress images were acquired with ECG - gating starting at the beginning of the infusion of N-13 Ammonia for [address] scan was acquired for attenuation correction of the stress images after PET image acquisition. EKG findings evaluated by Anthony Coulter M.D. CLINICAL RESPONSE: Baseline: Heart rate: 83 beats per minute. Blood pressure: 130/65 mmHg After Regadenoson injection: Heart rate: 99 beats per minute. At the end of Regadenoson injection: Blood pressure: 113/57 mmHg ELECTROCARDIOGRAPHIC FINDINGS: Baseline electrocardiogram shows normal sinus rhythm with left bundle branch block. With pharmacological stress the patient had no diagnostic ST segment depression. Conclusion: This is a nondiagnostic pharmacological stress electrocardiogram. PET/CT FINDINGS: Rest/Stress left ventricular myocardial perfusion images demonstrate predominantly fixed defect is identified involving the mid septal wall for left ventricle extending to the anterior and inferior wall. On quantification, the area of reversibility is approximately 4-8% of the left ventricular myocardium (12 mL left ventricular myocardial volume). Gated images show mild hypokinesia involving the mid septal wall for left ventricle especially during stress with the rest of the the left ventricle marr demonstrate normal wall motion. Left Ventricular Ejection fraction: Rest : 51%. Stress: 50% TID: 1.12 SSS: 16 SRS:13 SDS:3 Resting left ventricular end diastolic volume= 97 mL Resting extent of left ventricular defect = 22% (27 mL left ventricular myocardial volume) Stress extent of left ventricular defect= 30% (39 mL left ventricular myocardium volume) Quantitative analysis - Rest and Stress left ventricular myocardial blood flow in all 3 vascular territories are within normal limits. Myocardial flow reserves are in excess of 2. MBF(Stress) MBF(rest) MFR LAD 2.21 1.04 2.13 LCx 2.63 1.18 2.24 RCA 2.18 1.05 2.09 Global 2.30 1.08 2.14 *MBF [mL/g/min] Preserved global stress MBF and MFR of >=2 confers low-risk (with NPV of >=95%). Diminished global MFR < 1.5 confers high-risk. Abnormal MBF or MFR may be secondary to epicardial or microvascular disease. Additional CT Findings: The heart appears to be normal in size. No pericardial effusion. Trace coronary artery calcifications. The thoracic aorta is normal in caliber with mild atherosclerotic calcifications. Mild aortic valvular calcifications. Hypodensity of the blood pool in relation to the myocardium, compatible with anemia. Evaluation of the lung parenchyma somewhat limited due to respiratory motion artifacts. Small bilateral pleural effusions greater in the right with subjacent predominantly bilateral lower lobe consolidation likely atelectasis. No discrete pulmonary mass is appreciated in the visualized aerated lung stevenson. Thoracic spondylosis. Procedure Note Victoriano Cole MD - 04/29/2023 LOW DOSE/HIGH DOSE REST/STRESS REGADEN[place]ON N-13 AMMONIA PET/CT CLINICAL HISTORY:77 years Female with cp Referring Physician:BRIANA NOEL MD; BARBARA HA-WENDY. Supervising Physician:Anthony Coulter MD; Victoriano Cole MD. TECHNIQUE: Written informed consent was obtained for the study. Initial CT scan wasacquired for attenuation correction of the rest images. Intravenousadministration of 6mCi of N13 Ammonia was performed followed by salineflush. Resting PET images were acquired immediately for 10 minutes.20minutes following the rest images, a total of 0.4 mg Regadenoson wasinjected over 10 seconds at a dosage of 0.08 mg/mL immediately followed bya 10 mL normal saline flush. Within 60 seconds, 14.7 mCi of N13 Ammoniawas injected intravenously followed with saline flush. Peak stress imageswere acquired with ECG - gating starting at the beginning of the infusionof N-13 Ammonia for [address] scan was acquired for attenuationcorrection of the stress images after PET image acquisition. EKG findings evaluated by Anthony Coulter M.D. CLINICAL RESPONSE: Baseline: Heart rate: 83 beats per minute. Blood pressure: 130/65 mmHg After Regadenoson injection: Heart rate: 99 beats per minute. At the end of Regadenoson injection: Blood pressure: 113/57 mmHg ELECTROCARDIOGRAPHIC FINDINGS: Baseline electrocardiogram shows normal sinus rhythm with left bundlebranch block. With pharmacological stress the patient had no diagnostic ST segmentdepression. Conclusion: This is a nondiagnostic pharmacological stresselectrocardiogram. PET/CT FINDINGS: Rest/Stress left ventricular myocardial perfusion images demonstratepredominantly fixed defect is identified involving the mid septal wall forleft ventricle extending to the anterior and inferior wall. Onquantification, the area of reversibility is approximately 4-8% of theleft ventricular myocardium (12 mL left ventricular myocardial volume). Gated images show mild hypokinesia involving the mid septal wall for leftventricle especially during stress with the rest of the the left ventriclewalls demonstrate normal wall motion. Left Ventricular Ejection fraction: Rest : 51%. Stress: 50% TID: 1.12 SSS: 16 SRS:13 SDS:3 Resting left ventricular end diastolic volume= 97 mL Resting extent of left ventricular defect = 22% (27 mL left ventricularmyocardial volume) Stress extent of left ventricular defect= 30% (39 mL left ventricularmyocardium volume) Quantitative analysis - Rest and Stress left ventricular myocardial blood flow in all 3 vascularterritories are within normal limits. Myocardial flow reserves are inexcess of 2. MBF(Stress) MBF(rest) MFR LAD 2.21 1.04 2.13 LCx 2.63 1.18 2.24 RCA 2.18 1.05 2.09 Global 2.30 1.08 2.14 *MBF [mL/g/min] Preserved global stress MBF and MFR of >=2 confers low-risk (with NPV of>=95%). Diminished global MFR < 1.5 confers high-risk. Abnormal MBF or MFR may be secondary to epicardial or microvasculardisease. Additional CT Findings: The heart appears to be normal in size. No pericardial effusion. Tracecoronary artery calcifications. The thoracic aorta is normal in caliberwith mild atherosclerotic calcifications. Mild aortic valvularcalcifications. Hypodensity of the blood pool in relation to themyocardium, compatible with anemia. Evaluation of the lung parenchyma somewhat limited due to respiratorymotion artifacts. Small bilateral pleural effusions greater in the rightwith subjacent predominantly bilateral lower lobe consolidation likelyatelectasis. No discrete pulmonary mass is appreciated in the visualizedaerated lung stevenson. Thoracic spondylosis. IMPRESSION 1. Predominantly fixed defect is identified involving the mid septal wallfor left ventricle extending to the anterior and inferior wall. Onquantification, the area of reversibility is approximately 4-8% of theleft ventricular myocardium (12 mL left ventricular myocardial volume).Findings are compatible with myocardial infarction with mild alvaro-infarctischemia 2. No focal hypokinesia involving the mid septal wall of the leftventricle seen pronounced during stress with the rest of the leftventricular wall demonstrating normal wall motion. 3. Normal rest and stress left ventricular ejection fraction at 51% and50% respectively. 4. Normal rest and stress left ventricular myocardial blood flow in all 3vascular territories with myocardial blood flow reserves all in excess of2. 5. Trace coronary artery calcifications. 6. Hypodensity of the blood pool in relation to the myocardium, compatiblewith anemia. 7. Small bilateral pleural effusion greater in the right with subjacentpredominantly bilateral lower lobe consolidation, likely atelectasis. Finalized by Victoriano Cole M.D. on 04/29/2023 9:39 AM. Dictated by Basim Holman on 04/29/2023 9:01 AM. Barbara Diana CARE MANAGEMENT ASSOCIATE-POLITICAL SCIENCE RESEARCH ASSISTANT NUC MED ORDERABLE S * (ABNORMAL) LIPID PROFILE (04/29/2023 4:53 AM CDT) Cholesterol 123 <200 MG/DL 04/29/2023 6:26 PM CDT [facility] Triglycerides 116 <150 MG/DL 04/29/2023 6:26 PM CDT [facility] HDL 26(L) >40 MG/DL 04/29/2023 6:26 PM CDT [facility] LDL 81 <100 mg/dL 04/29/2023 6:26 PM CDT [facility] VLDL 23 MG/DL 04/29/2023 6:26 PM CDT [facility] Non HDL Cholesterol 97 MG/DL 04/29/2023 6:26 PM CDT [facility] Comment: Calculated non-HDL Cholesterol (non-HDL-C) indirectly measures LDL-C, Lp(a), IDL-C, and VLDL-C. It is a surrogate marker for Apoprotein B. Goal should be less than 130 mg/dL. 04/29/2023 4:5 3 AM CDT 04/29/2023 4:54 AM CDT Brian Vogel CARE MANAGEMENT ASSOCIATE-POLITICAL SCIENCE RESEARCH ASSISTANT LABORATORY ORDERABLE S [facility] [address] [place] [address], [place] * US DOPPLER VENOUS LEFT (04/28/2023 3:10 PM CDT) Anatomical Region Laterality Modality VASCULAR Left Ultrasound Left 04/28/2023 3:1 3 PM CDT Impressions 04/28/2023 3:44 PM CDT 1. No deep venous thrombosis in the left lower extremity. 2. Mild subcutaneous calf edema. By my electronic signature, I attest that I have personally reviewed the images for this examination and formulated the interpretations and opinions expressed in this report Finalized by Arnold Hector M.D. on 04/28/2023 3:44 PM. Dictated by Steven Sanchez MD on 04/28/2023 3:13 PM. Narrative 04/28/2023 3:44 PM CDT LEFT LOWER EXTREMITY VENOUS DOPPLER ULTRASOUND CLINICAL INDICATION: Female, 77 years; left greater than right lower extremity swelling. TECHNIQUE: Multiple grayscale, color Doppler and spectral Doppler ultrasound images were obtained of the left lower extremity for evaluation of the peripheral veins. COMPARISON: None FINDINGS: The left common femoral, upper saphenous, deep femoral, femoral, and popliteal veins are patent and fully compressible without focal narrowing. Visualized portions of the posterior tibial and peroneal veins are patent. Mild subcutaneous calf edema. No soft tissue mass or fluid collection is identified within visualized portions of the leg. Procedure Note Arnold Hector MD - 04/28/2023 LEFT LOWER EXTREMITY VENOUS DOPPLER ULTRASOUND CLINICAL INDICATION: Female, 77 years; left greater than right lowerextremity swelling. TECHNIQUE: Multiple grayscale, color Doppler and spectral Dopplerultrasound images were obtained of the left lower extremity for evaluationof the peripheral veins. COMPARISON: None FINDINGS: The left common femoral, upper saphenous, deep femoral, femoral, andpopliteal veins are patent and fully compressible without focal narrowing.Visualized portions of the posterior tibial and peroneal veins arepatent. Mild subcutaneous calf edema. No soft tissue mass or fluid collection isidentified within visualized portions of the leg. IMPRESSION 1. No deep venous thrombosis in the left lower extremity. 2. Mild subcutaneous calf edema. By my electronic signature, I attest that I have personally reviewed theimages for this examination and formulated the interpretations andopinions expressed in this report Finalized by Arnold Hector M.D. on 04/28/2023 3:44 PM. Dictated bySteven Sanchez MD on 04/28/2023 3:13 PM. Hussain Slaughter MD ORDERABLES * CHEST 2 VIEWS (04/28/2023 2:52 PM CDT) Anatomical Region Laterality Modality CHEST Computed Radiogr aphy 04/28/2023 2:5 4 PM CDT Impressions 04/28/2023 2:57 PM CDT Improved pulmonary edema. Decreased small layering pleural effusions. Adjacent basal opacities presumably reflect atelectasis. Finalized by Dereck Gay MD on 04/28/2023 2:57 PM. Dictated by Dereck Gay MD on 04/28/2023 2:54 PM. Narrative 04/28/2023 2:57 PM CDT CHEST 2 VIEWS INDICATION: Re-assess pleural effusions, pulmonary edema. COMPARISON STUDY: 04/23/2023. FINDINGS: Previously noted left PICC, feeding tube and endotracheal tube have been removed. Lungs/Pleura: Decreased small bilateral pleural effusions. Associated basilar opacities. Heart and Mediastinum: Stable heart and mediastinum. Skeletal Structures and Soft Tissues: No acute osseous abnormality. Partially imaged right ureteral stent. Procedure Note Dereck Gay MD - 04/28/2023 CHEST 2 VIEWS INDICATION: Re-assess pleural effusions, pulmonary edema. COMPARISON STUDY: 04/23/2023. FINDINGS: Previously noted left PICC, feeding tube and endotracheal tube have beenremoved. Lungs/Pleura: Decreased small bilateral pleural effusions. Associatedbasilar opacities. Heart and Mediastinum: Stable heart and mediastinum. Skeletal Structures and Soft Tissues: No acute osseous abnormality. Partially imaged right ureteral stent. IMPRESSION Improved pulmonary edema. Decreased small layering pleural effusions.Adjacent basal opacities presumably reflect atelectasis. Finalized by Dereck Gay MD on 04/28/2023 2:57 PM. Dictated by Catalina Gay MD on 04/28/2023 2:54 PM. Hussain Slaughter MD DIAGNOSTIC IMAGING ORDERABLES * (ABNORMAL) NT-PRO-BNP (04/28/2023 5:44 AM CDT) Only the most recent of2 resultswithin the time period is included. NT-Pro-BNP 7,917.0(H) <450 pg/mL 04/28/2023 12:32 PM CDT [facility] Comment: NOTE: Normal reference ranges for NT-proBNP vary by age: <125 pg/mL for individuals < 75 years old <450 pg/mL for individuals =/> 75 years old 04/28/2023 5:4 4 AM CDT 04/28/2023 5:45 AM CDT Brian Vogel APRN-POLITICAL SCIENCE RESEARCH ASSISTANT LABORATORY ORDERABLE S Performing Organization Address City/State/[facility] Co de Phone Number [facility] [address] [place] [address], * PHOSPHORUS CELLULAR THERAPEUTICS (04/27/2023 5:02 AM CDT) Only the most recent of5 resultswithin the time period is included. Phosphorus 2.7 2.0 - 4.5 MG/DL 04/27/2023 6:01 AM CDT [facility] BLOOD / Unknown 04/27/2023 5:02 AM CDT 04/27/2023 5:03 AM CDT Brian Mina Jaspreet CARE MANAGEMENT ASSOCIATE-POLITICAL SCIENCE RESEARCH ASSISTANT LABORATORY ORDERABLE S [facility] [address] [place] [address], * (ABNORMAL) BLOOD GASES, PERIPHERAL VENOUS (04/26/2023 9:13 AM CDT) pH-Venous 7.41(H) 7.30 - 7.40 04/26/2023 9:33 AM CDT [facility] PCO2-Venous 53(H) 36 - 50 MMHG 04/26/2023 9:33 AM CDT REPLACED BY [facility] PO2-Venous 42 33 - 48 MMHG 04/26/2023 9:33 AM CDT [facility] Base Excess-Venous 6.8 MMOL/L 04/26/2023 9:33 AM CDT REPLACED BY [facility] O2 Sat-Venous 75.4(H) 55 - 71 % 04/26/2023 9:33 AM CDT REPLACED BY [facility] Bicarbonate-VE N-Shahab 30.1 MMOL/L 04/26/2023 9:33 AM CDT REPLACED BY [facility] BLOOD / Unknown 04/26/2023 9:13 AM CDT 04/26/2023 9:31 AM CDT Desiree Ross APRN-POLITICAL SCIENCE RESEARCH ASSISTANT OTHER LABORATOR Y [facility] [address] [place] [address], * (ABNORMAL) AMMONIA (04/26/2023 9:13 AM CDT) Ammonia 46(H) 9 - 35 MCMOL/L 04/26/2023 9:53 AM CDT REPLACED BY [facility] BLOOD / Unknown 04/26/2023 9:13 AM CDT 04/26/2023 9:31 AM CDT Desiree Ross APRN-POLITICAL SCIENCE RESEARCH ASSISTANT LABORATORY ORDE RABLES [facility] [address] * (ABNORMAL) HEMOGLOBIN A1C (04/26/2023 2:17 AM CDT) Hemoglobin A1C 6.4(H) 4.0 - 5.7 % 04/26/2023 6:25 AM CDT [facility] Comment: The ADA recommends that most patients with type 1 and type 2 diabetes maintain an A1c level <7%. BLOOD / Unknown 04/26/2023 2:17 AM CDT 04/26/2023 2:33 AM CDT Gabriela Lombardi APRN-POLITICAL SCIENCE RESEARCH ASSISTANT LABORATORY ORDERABLES Performing Organization Address [facility] Co de Phone Number [facility] [address] [place] [address], * ECG 12-LEAD (04/25/2023 9:38 PM CDT) VENTRICULAR RATE 109 BPM GE MUSE P-R INTERVAL 140 ms GE MUSE QRS DURATION 120 ms GE MUSE Q-T INTERVAL 334 ms GE MUSE QTC CALCULATION (BAZETT) 449 ms GE MUSE P AXIS 42 degrees GE MUSE R AXIS 78 degrees GE MUSE T AXIS 216 degrees GE MUSE 04/25/2023 9:3 8 PM CDT 04/25/2023 11:22 PM CDT Impressions GE MUSE - 04/25/2023 11:22 PM CDT Sinus tachycardia Incomplete left bundle branch block Minimal voltage criteria for LVH, may be normal variant ( Montrose product ) Anteroseptal infarct (cited on or before 25-APR-2023) ST & T wave abnormality, consider inferior ischemia Abnormal ECG When compared with ECG of 24-APR-2023 12:24, Sinus rhythm has replaced Atrial fibrillation Serial changes of Anteroseptal infarct present Confirmed by Reji Schilling ([id number]) on 04/25/2023 11:22:39 PM Narrative Procedure Note Reji Schilling MD - 04/25/2023 IMPRESSION Sinus tachycardia Incomplete left bundle branch block Minimal voltage criteria for LVH, may be normal variant ( Montrose product) Anteroseptal infarct (cited on or before 25-APR-2023) ST & T wave abnormality, consider inferior ischemia Abnormal ECG When compared with ECG of 24-APR-2023 12:24, Sinus rhythm has replaced Atrial fibrillation Serial changes of Anteroseptal infarct present Confirmed by Reji Schilling ([id number]) on 04/25/2023 11:22:39 PM Brian Vogel CARE MANAGEMENT ASSOCIATE-POLITICAL SCIENCE RESEARCH ASSISTANT ECG ORDERABLES GE MUSE * (ABNORMAL) BASIC METABOLIC PANEL (04/25/2023 4:31 PM CDT) Only the most recent of2 resultswithin the time period is included. Sodium 148(H) 137 - 147 MMOL/L 04/25/2023 5:27 PM CDT [facility] Potassium 4.0 3.5 - 5.1 MMOL/L 04/25/2023 5:27 PM CDT [facility] Chloride 110 98 - 110 MMOL/L 04/25/2023 5:27 PM CDT [facility] CO2 30 21 - 30 MMOL/L 04/25/2023 5:27 PM CDT [facility] Anion Gap 8 3 - 12 04/25/2023 5:27 PM CDT [facility] Glucose 219(H) 70 - 100 MG/DL 04/25/2023 5:27 PM CDT [facility] Blood Urea Nitrogen 37(H) 7 - 25 MG/DL 04/25/2023 5:27 PM CDT [facility] Creatinine 0.73 0.4 - 1.00 MG/DL 04/25/2023 5:27 PM CDT [facility] Calcium 8.6 8.5 - 10.6 MG/DL 04/25/2023 5:27 PM CDT [facility] eGFR >60 >60 mL/min 04/25/2023 5:27 PM CDT [facility] Comment:eGFR calculated nicolás ryder the CKD-EPIcr_R equation BLOOD / Unknown 04/25/2023 4:31 PM CDT 04/25/2023 4:38 PM CDT Gabriela ALEJANDRO LABORATORY ORDERABLES Performing Organization Address [facility] Co de Phone Number [facility] [address] [place] [address], * C DIFFICILE BY PCR (04/25/2023 8:08 AM CDT) C. difficile Toxin B PCR Negative: Repeat testing within 7 days of a negative result will not be performed. Testing after 7 days may be performed if clinically indicated. 04/25/2023 9:51 AM CDT [facility] Feces FECES / Unknown 04/25/2023 8:08 AM CDT 04/25/2023 8:37 AM CDT Gabriela ALEJANDRO MICROBIOLOG Y ORDERABLES Performing Organization Address [facility] Co de Phone Number [facility] [address] [place] [address], * FEEDING TUBE PLCMNT (ABD/CHEST LMTD) (04/24/2023 3:13 PM CDT) Anatomical Region Laterality Modality CHEST, Abdomen Computed Radiogr aphy 04/24/2023 5:3 0 PM CDT Impressions 04/24/2023 5:31 PM CDT Findings/impression: Lower thorax and abdomen are included in the [id number]. Bilateral pleural effusions with bibasilar atelectasis. Indwelling nasoenteric catheter with its tip overlying the region of the proximal duodenum. A right ureteral stent is partially visualized. The visualized bowel loops are nondistended. Finalized by Fili Florence D.O. on 04/24/2023 5:31 PM. Dictated by Fili Florence D.O. on 04/24/2023 5:30 PM. Narrative 04/24/2023 5:31 PM CDT Feeding tube placement abdomen/chest limited CLINICAL HISTORY: Post feeding tube placement COMPARISON: Prior chest x-ray obtained the previous day Procedure Note Fili Florence DO - 04/24/2023 Feeding tube placement abdomen/chest limited CLINICAL HISTORY: Post feeding tube placement COMPARISON: Prior chest x-ray obtained the previous day IMPRESSION Findings/impression: Lower thorax and abdomen are included in the [id number]. Bilateralpleural effusions with bibasilar atelectasis. Indwelling nasoentericcatheter with its tip overlying the region of the proximal duodenum. Aright ureteral stent is partially visualized. The visualized bowel loopsare nondistended. Finalized by Fili Florence D.O. on 04/24/2023 5:31 PM. Dictated by Britany Godwin on 04/24/2023 5:30 PM. Gabriela Lombardi CARE MANAGEMENT ASSOCIATE-POLITICAL SCIENCE RESEARCH ASSISTANT DIAGNOSTIC IMAGING ORDERABLES * ECG 12-LEAD (04/24/2023 12:24 PM CDT) VENTRICULAR RATE 132 BPM GE MUSE P-R INTERVAL ms GE MUSE QRS DURATION 122 ms GE MUSE Q-T INTERVAL 344 ms GE MUSE QTC CALCULATION (BAZETT) 509 ms GE MUSE P AXIS degrees GE MUSE R AXIS 79 degrees GE MUSE T AXIS -68 degrees GE MUSE 04/24/2023 12:2 4 PM CDT 04/24/2023 2:06 PM CDT Impressions GE MUSE - 04/24/2023 2:06 PM CDT Atrial fibrillation with rapid ventricular response Left bundle branch block Confirmed by Herve Rivers ([id number]) on 04/24/2023 2:06:17 PM Narrative Procedure Note José Miguel Rivers MD - 04/24/2023 IMPRESSION Atrial fibrillation with rapid ventricular response Left bundle branch block Confirmed by Herve Rivers ([id number]) on 04/24/2023 2:06:17 PM Brian Vogel CARE MANAGEMENT ASSOCIATE-POLITICAL SCIENCE RESEARCH ASSISTANT ECG ORDERABLES [place] * 2D + DOPPLER ECHO W/ CONTRAST (04/24/2023 10:04 AM CDT) Left Ventricle Diastolic Volume 105.00 46 - 106 mL OTHER OUTSIDE LAB Left Ventricle Systolic Volume 84.00 14 - 42 mL OTHER OUTSIDE LAB IVS 1.10 0.6 - 0.9 cm OTHER OUTSIDE LAB LVIDD 3.60 3.8 - 5.2 cm OTHER OUTSIDE LAB LVIDS 3.20 2.2 - 3.5 cm OTHER OUTSIDE LAB LVOT diameter 2.10 cm OTHER OUTSIDE LAB LVOT peak VTI 9.50 cm OTHER OUTSIDE LAB PW 1.00 0.6 - 0.9 cm OTHER OUTSIDE LAB TDI lateral e' 0.05 m/s OTHER OUTSIDE LAB TDI Medial e' 0.05 m/s OTHER OUTSIDE LAB LA volume 50.10 22 - 52 mL OTHER OUTSIDE LAB LA size 3.70 2.7 - 3.8 cm OTHER OUTSIDE LAB , with a mean gradient of 10.80 mmHg OTHER OUTSIDE LAB Ao VTI 35.10 cm OTHER OUTS FILI LAB Sinus 3.40 2.4 - 3.6 cm OTHER OUTSIDE LAB MV Peak E Jaren PW 1.28 m/s OTHER OUTSIDE LAB Right Heart Systolic Mmode TAPSE 1.29 >1.7 cm OTHER OUTSIDE LAB Right Ventricular Mid Diameter 2.20 1.9 - 3.5 cm OTHER OUTSIDE LAB Right Ventricular Basal Diameter 3.00 2.5 - 4.1 cm OTHER OUTSIDE LAB Right Atrial Area 11.70 <18 cm2 OTHER OUTSIDE LAB Right Heart Systolic TDI S' 0.09 m/s OTHER OUTSID E LAB BSA 1.89 m2 OTHER OUTS FILI LAB FS 11.11 28 - 44 % OTHER OUTS FILI LAB Teichholtz 18.89 % OTHER OUT SIDE LAB Left Ventricle Systolic Volume Index 44 8 - 24 mL/m2 OTHER OUTSIDE LAB Left Ventricle Diastolic Volume Index 56 29 - 61 mL/m2 OTHER OUTSIDE LAB Left Atrium Index 26.51 16 - 34 mL/m2 OTHER OUTSIDE LAB LV mass 116 67 - 162 g OTHER OUTSIDE LAB Left Ventricle Mass Index 61 43 - 95 g/m2 OTHER OUTSIDE LAB RWT 0.56 <=0.42 OTHER OUTS FILI LAB LVOT area 3.46 cm2 OTHER OUTS FILI LAB LVOT stroke volume 32.90 cm3 OTHER OUTSIDE LAB Aortic valve area = 0.94 cm2 OTHER OUTSIDE LAB Medial E/E' ratio 25.60 OTHER OUTSIDE LAB Lateral E/E' ratio 25.60 OTHER OUTSIDE LAB CV ECHO PV VACUUM DRIER OPERATOR Lindesy IGNACIO OTHER OUTSIDE LAB Cardiology Ultrasound Machine Harpal Epiq OTHER OUTSIDE LAB LEIGH'S BIPLANE EF 20 % OTHER OUTSIDE LAB LVOT peak jaren 0.6 m/s OTHER OUTSIDE LAB AV Stroke Volume Index 17 OTHER OUTSIDE LAB AV peak velocity 2.2 m/s OTHER OUTSIDE LAB and a peak gradient of 18 mmHg OTHER OUTSIDE LAB AV index (tanana) 0.27 OTHER OUTSIDE LAB TR PEAK VELOCITY 3.0 m/s OTHER OUTSIDE LAB RV SYSTOLIC PRESSURE 36 OTHER OUTSIDE LAB RA PRESSURE 8 OTHER OU TSIDE LAB TV rest pulmonary artery pressure 44 mmHg OTHER OUTSID E LAB Anatomical Region Laterality Modality Ultrasound Narrative 04/24/2023 11:10 AM CDT Difficult to accurately assess the LV ejection [...] is no prior study available for comparison Left Ventricle The left ventricular size is normal. Wall thickness is increased. Concentric remodeling. The left ventricular systolic function is severely reduced. There are segmental wall motion abnormalities, as described below. Abnormal septal motion consistent with left bundle branch block. Right Ventricle The right ventricular size is normal. The right ventricular systolic function is mildly reduced. Left Atrium Normal size. Right Atrium Normal size. IVC/SVC Elevated central venous pressure (5-10 mm Hg). Mitral Valve Non-specific thickening. No stenosis. Mild regurgitation. There is mild mitral annular calcification. Tricuspid Valve Normal valve structure. No stenosis. Mild to moderate regurgitation. Aortic Valve The valve is calcified. Trace regurgitation. Pericardium No pericardial effusion. Pulmonary The pulmonic valve was not seen well but no Doppler evidence of stenosis. Aorta The ascending aorta is moderately dilated. The aortic root is normal in size. Wall Scoring Resting Score Index: 2.53 The following segments are akinetic: mid anterior, mid anteroseptal, mid inferoseptal, mid inferolateral, mid anterolateral, apical anterior, apical septal, apical lateral and apex. The following segments are hypokinetic: basal anterior, basal anteroseptal, basal inferoseptal, basal inferior, basal inferolateral, basal anterolateral, mid inferior and apical inferior. Brian Franco CARE MANAGEMENT ASSOCIATE-POLITICAL SCIENCE RESEARCH ASSISTANT ECHO ORDERABLES * ECG 12-LEAD (04/24/2023 8:12 AM CDT) VENTRICULAR RATE 112 BPM GE MUSE P-R INTERVAL ms GE MUSE QRS DURATION 130 ms GE MUSE Q-T INTERVAL 372 ms GE MUSE QTC CALCULATION (BAZETT) 507 ms GE MUSE P AXIS degrees GE MUSE R AXIS 95 degrees GE MUSE T AXIS -44 degrees GE MUSE 04/24/2023 8:1 2 AM CDT 04/24/2023 11:04 AM CDT Impressions GE MUSE - 04/24/2023 11:04 AM CDT Atrial fibrillation with rapid ventricular response Rightward axis Left bundle branch block Confirmed by Agustín Loja ([id number]) on 04/24/2023 11:04:39 AM Narrative Procedure Note Agustín Loja MD - 04/24/2023 IMPRESSION Atrial fibrillation with rapid ventricular response Rightward axis Left bundle branch block Confirmed by Agustín Loja ([id number]) on 04/24/2023 11:04:39 AM Brian Vogel APRN-POLITICAL SCIENCE RESEARCH ASSISTANT ECG ORDERABLES GE MUSE * ECG 12-LEAD (04/24/2023 4:36 AM CDT) VENTRICULAR RATE 127 BPM GE MUSE P-R INTERVAL ms GE MUSE QRS DURATION 122 ms GE MUSE Q-T INTERVAL 344 ms GE MUSE QTC CALCULATION (BAZETT) 499 ms GE MUSE P AXIS degrees GE MUSE R AXIS 89 degrees GE MUSE T AXIS -54 degrees GE MUSE 04/24/2023 4:3 6 AM CDT 04/24/2023 8:31 AM CDT Impressions GE MUSE - 04/24/2023 8:31 AM CDT Atrial fibrillation with rapid ventricular response Anterolateral infarct , age undetermined Left bundle branch block Abnormal ECG Confirmed by Herve Rivers ([id number]) on 04/24/2023 8:31:07 AM Narrative Procedure Note José Miguel Rivers MD - 04/24/2023 IMPRESSION Atrial fibrillation with rapid ventricular response Anterolateral infarct , age undetermined Left bundle branch block Abnormal ECG Confirmed by Herve Rivers ([id number]) on 04/24/2023 8:31:07 AM Brian Vogel APRN-POLITICAL SCIENCE RESEARCH ASSISTANT ECG ORDERABLES GE MUSE * (ABNORMAL) HIGH SENSITIVITY TROPONIN I, RANDOM (04/24/2023 3:37 AM CDT) Only the most recent of5 resultswithin the time period is included. hs Troponin I, Random 704(H) <12 ng/L 04/24/2023 9:06 AM CDT REPLACED BY [facility] DEPT PATH AND LAB MEDICINE 04/24/2023 3:3 7 AM CDT 04/24/2023 4:02 AM CDT Brian Vogel APRN-POLITICAL SCIENCE RESEARCH ASSISTANT LABORATORY ORDERABLE S [facility] DEPT PATH AND LAB MEDICINE [address] [place] [address], * URIC ACID (04/24/2023 3:37 AM CDT) Uric Acid 4.6 2.0 - 7.0 MG/DL 04/24/2023 4:38 AM CDT REPLACED BY [facility] DEPT PATH AND LAB MEDICINE BLOOD / Unknown 04/24/2023 3:37 AM CDT 04/24/2023 4:02 AM CDT Gabriela Lombardi CARE MANAGEMENT ASSOCIATE-POLITICAL SCIENCE RESEARCH ASSISTANT LABORATORY ORDERABLES Performing Organization Address City/[facility]/ZIP Co de Phone Number [facility] PATH AND LAB MEDICINE [address] [place] [address], * CULTURE-BLOOD W/SENSITIVITY (04/23/2023 3:57 PM CDT) Only the most recent of3 resultswithin the time period is included. Battery Name BLOOD CULTURE [facility] DEPT PATH AND LAB MEDICINE Report Status FINAL 04/29/2023 [facility] DEPT PATH AND LAB MEDICINE Specimen Description BLOOD ARM, RIGHT [facility] DEPT PATH AND LAB MEDICINE Special Requests No special requests 04/22/2023 6:16 PM CDT REPLACED BY [facility] DEPT PATH AND LAB MEDICINE Culture NO GROWTH 5 DAYS 04/29/2023 6:15 AM CDT REPLACED BY [facility] DEPT PATH AND LAB MEDICINE Blood RIGHT UPPER ARM STRUCTURE / Unknown 04/23/2023 3:57 PM CDT 04/23/2023 4:20 PM CDT Brian Mina Vogel CARE MANAGEMENT ASSOCIATE-POLITICAL SCIENCE RESEARCH ASSISTANT MICROBIOLOGY ORDERAB LES Performing Organization Address [facility] Co de Phone Number [facility] PATH AND LAB MEDICINE [address] [place] [address], * CHEST SINGLE VIEW (04/23/2023 6:40 AM CDT) Only the most recent of2 resultswithin the time period is included. Anatomical Region Laterality Modality CHEST Computed Radiogr aphy 04/23/2023 11:0 6 AM CDT Impressions 04/23/2023 11:08 AM CDT Persistent cardiomegaly with increased mixed lung opacities,, likely worsening pulmonary edema. Superimposed pneumonia is not excluded. Persistent bilateral pleural effusions and adjacent atelectasis. Finalized by Skye Loza M.D. on 04/23/2023 11:08 AM. Dictated by Skye Loza M.D. on 04/23/2023 11:06 AM. Narrative 04/23/2023 11:08 AM CDT CHEST SINGLE VIEW INDICATION: intubation COMPARISON STUDY: 04/22/2023. FINDINGS: Support Devices: ET tube with tip approximately 3 cm above wes. Left PICC remains in place. Lungs/Pleura: Stable lung volume. Increased mixed interstitial and alveolar lung opacities. Moderate bilateral pleural effusions. No definite pneumothorax. Heart and Mediastinum: The cardiomediastinal silhouette is partially obscured, grossly stable. Procedure Note Skye Loza MD - 04/23/2023 CHEST SINGLE VIEW INDICATION: intubation COMPARISON STUDY: 04/22/2023. FINDINGS: Support Devices: ET tube with tip approximately 3 cm above wes. LeftPICC remains in place. Lungs/Pleura: Stable lung volume. Increased mixed interstitial andalveolar lung opacities. Moderate bilateral pleural effusions. No definitepneumothorax. Heart and Mediastinum: The cardiomediastinal silhouette is partiallyobscured, grossly stable. IMPRESSION Persistent cardiomegaly with increased mixed lung opacities,, likelyworsening pulmonary edema. Superimposed pneumonia is not excluded. Persistent bilateral pleural effusions and adjacent atelectasis. Finalized by Skye Loza M.D. on 04/23/2023 11:08 AM. Dictated bySkye Loza M.D. on 04/23/2023 11:06 AM. Brian Vogel CARE MANAGEMENT ASSOCIATE-POLITICAL SCIENCE RESEARCH ASSISTANT DIAGNOSTIC IMAGING O RDERABLES * (ABNORMAL) BLOOD GASES, ARTERIAL (04/23/2023 6:18 AM CDT) Only the most recent of2 resultswithin the time period is included. pH-Arterial 7.28(L) 7.35 - 7.45 04/23/2023 6:26 AM CDT [facility] DEPT PATH AND LAB MEDICINE pCO2-Arterial 43 35 - 45 MMHG 04/23/2023 6:26 AM CDT [facility] DEPT PATH AND LAB MEDICINE pO2-Arterial 183(H) 80 - 100 MMHG 04/23/2023 6:26 AM CDT [facility] DEPT PATH AND LAB MEDICINE Base Deficit-Arteri al 6.6 MMOL/L 04/23/2023 6:26 AM CDT [facility] DEPT PATH AND LAB MEDICINE O2 Sat-Arterial 99.0 95 - 99 % 04/23/2023 6:26 AM CDT [facility] DEPT PATH AND LAB MEDICINE Bicarbonate-AR T-Shahab 19.1(L) 21 - 28 MMOL/L 04/23/2023 6:26 AM CDT REPLACED BY [facility] PATH AND LAB MEDICINE BLOOD / Unknown 04/23/2023 6:18 AM CDT 04/23/2023 6:24 AM CDT Brian Vogel CARE MANAGEMENT ASSOCIATE-POLITICAL SCIENCE RESEARCH ASSISTANT OTHER LABORATORY Performing Organization Address City/[facility]/ZIP Co de Phone Number [facility] PATH AND LAB MEDICINE [address] * MRSA PNEUMONIA SCREEN (04/23/2023 6:10 AM CDT) Pathologist [facility] MRSA Pneumonia PCR NOT DETECTED The negative predictive value of this assay for MRSA pneumonia is high. Discontinuation of anti-MRSA pneumonia therapy is recommended in patients without additional clinical features that warrant MRSA therapy. Contact infectious Diseases or Antimicrobial Stewardship with questions. 04/23/2023 9:00 AM CDT [facility] PATH AND LAB MEDICINE Flocked Swab SWAB OF INTERNAL NOSE / Unknown 04/23/2023 6:10 AM CDT 04/23/2023 7:10 AM CDT Kate De La Cruz MD MICROBIOLOGY ORDERAB LES Performing Organization Address City/[facility] Co de Phone Number [facility] PATH AND LAB MEDICINE [address] * CULTURE-URINE W/SENSITIVITY (04/23/2023 5:12 AM CDT) Only the most recent of2 resultswithin the time period is included. Battery Name URINE CULTURE REPLACED BY [facility] DEPT PATH AND LAB MEDICINE Report Status FINAL 04/24/2023 REPLACED BY [facility] DEPT PATH AND LAB MEDICINE Specimen Description URINE CATHETER REPLACED BY [facility] PATH AND LAB MEDICINE Special Requests No special requests 04/23/2023 5:13 AM CDT REPLACED BY [facility] DEPT PATH AND LAB MEDICINE Culture NO GROWTH 04/24/2023 7:34 AM CDT REPLACED BY [facility] PATH AND LAB MEDICINE Urine URINARY BLADDER STRUCTURE / Unknown 04/23/2023 5:12 AM CDT Comment:Routine Culture Jerald Lindquist MD MICROBIOLOGY ORDERAna SULLIVAN [facility] DEPT PATH AND LAB MEDICINE [address] [place] [id number], [place] * ANESTHESIA ETT (04/23/2023 4:30 AM CDT) Narrative Oscar Del Toro MD - 04/23/2023 4:30 AM CDT Devon Darling Jr., CRNA 04/23/2023 4:40 AM Procedure: Airway Placement AIRWAY INSERTION Date/Time: 04/23/2023 4:30 AM Patient location: OR Urgency: elective Difficult Airway: No Airway Procedure Indication(s) for airway management: surgery no Preoxygenated: yes Patient position: sniffing Neck stabilization: no in-line stabilization Mask difficulty assessment: 1 - vent by mask Procedure Outcome Final airway type: endotracheal airway Endotracheal airway: ETT ETT size (mm): 6.5 Technique used for successful ETT placement: direct laryngoscopy Devices/methods used in placement: intubating stylet Insertion site: oral Blade type: Jennifer Laryngoscope/Videolaryngoscope blade size: 3 Cormack-Lehane classification: grade IIa - partial view of glottis Measured from: teeth (21) Number of attempts at approach: 1 Placement verified by auscultation and capnometry Complications Cardiovascular: Pulmonary: Procedure: airway not difficult Medication: Performed by: Devon Darling Jr., CRNA Authorized by: Oscar Del Toro MD Oscar Del Toro MD ANESTHESIA ORDERABLE S * ANESTHESIA ARTERIAL LINE INSERTION (04/23/2023 4:30 AM CDT) Narrative Oscar Del Toro MD - 04/23/2023 4:30 AM CDT Devon Darling Jr., CRNA 04/23/2023 4:40 AM Anesthesia Procedure: Arterial Line Placement A-LINE INSERTION Date/Time: 04/23/2023 4:30 AM Patient location: OR Indications: hemodynamic monitoring Preprocedure checklist performed: 2 patient identifiers, risks & benefits discussed, patient evaluated, timeout performed, consent obtained, patient being monitored and sterile drape Sterile technique: - Proper hand washing - Cap, mask - Sterile gloves - Skin prep for antisepsis Arterial Line Procedure Patient sedated: yes (see MAR) Sedation type: general; Artery prepped with chlorhexidine; skin prep agent completely dried prior to procedure. Location: radial artery Laterality: left Technique: ultrasound Needle gauge: 20 G Number of attempts: 1 Procedure Outcome Catheter secured with adhesive dressing applied Events: no complications noted during insertion and skin intact, warm, and dry Observation: pt tolerated well Performed by: Cristhian Clark MD Authorized by: Oscar Del Toro MD Oscar Del Toro MD ANESTHESIA ORDERABLE S * LACTIC ACID (BG - RAPID LACTATE) (04/23/2023 3:46 AM CDT) Only the most recent of4 resultswithin the time period is included. Lactic Acid,BG 1.7 0.5 - 2.0 MMOL/L 04/23/2023 4:12 AM CDT REPLACED BY [facility] DEPT PATH AND LAB MEDICINE BLOOD / Unknown 04/23/2023 3:46 AM CDT 04/23/2023 4:02 AM CDT Brian Franco CARE MANAGEMENT ASSOCIATE-POLITICAL SCIENCE RESEARCH ASSISTANT OTHER LABORATORY [facility] DEPT PATH AND LAB MEDICINE [address] [place] [address], * GRAM STAIN (04/23/2023 2:17 AM CDT) Battery Name GRAM STAIN REPLACED BY [facility] DEPT PATH AND LAB MEDICINE Report Status FINAL 04/23/2023 REPLACED BY [facility] DEPT PATH AND LAB MEDICINE Specimen Description SPUTUM TRACHEA REPLACED BY [facility] DEPT PATH AND LAB MEDICINE Special Requests No special requests 04/23/2023 4:58 AM CDT [facility] DE[facility] PATH AND LAB MEDICINE Gram Stain LESS THAN 10/LPF NEUTROPHILS 04/23/2023 5:33 AM CDT [facility] DEPT PATH AND LAB MEDICINE Gram Stain LESS THAN 10/LPF SQUAMOUS EPITHELIAL CELLS 04/23/2023 5:33 AM CDT [facility] DE[facility] PATH AND LAB MEDICINE Gram Stain NO ORGANISMS SEEN 04/23/2023 5:33 AM CDT [facility] DE[facility] PATH AND LAB MEDICINE Sputum SPECIMEN FROM TRACHEA / Unknown 04/23/2023 2:17 AM CDT 04/23/2023 4:57 AM CDT Brian Vogel CARE MANAGEMENT ASSOCIATE-POLITICAL SCIENCE RESEARCH ASSISTANT MICROBIOLOGY ORDERAB LES Performing Organization Address [facility] Co de Phone Number [facility] DEPT PATH AND LAB MEDICINE [address] * CULTURE-RESP,LOWER W/SENSITIVITY (04/23/2023 2:17 AM CDT) Battery Name LOWER RESP CULTURE [facility] DEPT PATH AND LAB MEDICINE Report Status FINAL 04/25/2023 [facility] PATH AND LAB MEDICINE Specimen Description SPUTUM TRACHEA [facility] PATH AND LAB MEDICINE Special Requests No special requests 04/23/2023 4:58 AM CDT [facility] PATH AND LAB MEDICINE Direct Gram Stain LESS THAN 10/LPF NEUTROPHILS 04/23/2023 5:33 AM CDT [facility] DEPT PATH AND LAB MEDICINE Direct Gram Stain LESS THAN 10/LPF SQUAMOUS EPITHELIAL CELLS 04/23/2023 5:33 AM CDT [facility] DE[facility] PATH AND LAB MEDICINE Direct Gram Stain NO ORGANISMS SEEN 04/23/2023 5:33 AM CDT [facility] DE[facility] PATH AND LAB MEDICINE Culture Light growth NORMAL OROPHARYNGEAL JANES 04/25/2023 8:36 AM CDT [facility] DE[facility] PATH AND LAB MEDICINE Sputum SPECIMEN FROM TRACHEA / Unknown 04/23/2023 2:17 AM CDT 04/23/2023 4:57 AM CDT Brian Mina Jaspreet MACKENZIEN-POLITICAL SCIENCE RESEARCH ASSISTANT MICROBIOLOGY ORDERAB LES Performing Organization Address [facility]/ZIP Co de Phone Number [facility] DEPT PATH AND LAB MEDICINE [address] [place] [address], * PROCALCITONIN (04/22/2023 8:03 PM CDT) Procalcitonin 30.80 ng/mL 04/22/2023 9:33 PM CDT [facility] DEPT PATH AND LAB MEDICINE Comment: Suspected Lower Respiratory Tract Infection: >0.25 ng/mL-Increased likeihood bacterial infection Suspected Sepsis: >0.5 ng/mL-Increased likelihood sepsis >2.0 ng/mL-High risk of sepsis/septic shock BLOOD / Unknown 04/22/2023 8:03 PM CDT 04/22/2023 8:53 PM CDT Kate De La Cruz MD LABORATORY ORDERABLE S Performing Organization Address City/[facility]/ZIP Co de Phone Number [facility] PATH AND LAB MEDICINE [address] * INFLUENZA A/B AND RSV PCR (04/22/2023 6:59 PM CDT) Influenza A Virus NEG NEG-NEG 04/22/2023 8:35 PM CDT [facility] PATH AND LAB MEDICINE Influenza B Virus NEG NEG-NEG 04/22/2023 8:35 PM CDT [facility] PATH AND LAB MEDICINE RSV NEG NEG-NEG 04/22/2023 8:35 PM CDT [facility] PATH AND LAB MEDICINE Flocked Swab NASOPHARYNGEAL STRUCTURE / Unknown 04/22/2023 6:59 PM CDT 04/22/2023 7:39 PM CDT Brian Vogel CARE MANAGEMENT ASSOCIATE-POLITICAL SCIENCE RESEARCH ASSISTANT MICROBIOLOGY ORDERAB LES Performing Organization Address [facility] Co de Phone Number [facility] PATH AND LAB MEDICINE [address] [place] [address], * ECG 12-LEAD (04/22/2023 6:54 PM CDT) VENTRICULAR RATE 104 BPM GE MUSE P-R INTERVAL 138 ms GE MUSE QRS DURATION 126 ms GE MUSE Q-T INTERVAL 358 ms GE MUSE QTC CALCULATION (BAZETT) 470 ms GE MUSE P AXIS 36 degrees GE MUSE R AXIS 56 degrees GE MUSE T AXIS 159 degrees GE MUSE 04/22/2023 6:5 4 PM CDT 04/22/2023 9:27 PM CDT Impressions GE MUSE - 04/22/2023 9:27 PM CDT Sinus tachycardia Left bundle branch block Abnormal ECG No previous ECGs available in MUSE Confirmed by Herve Rivers ([id number]) on 04/22/2023 9:27:42 PM Narrative Procedure Note José Miguel Rivers MD - 04/22/2023 IMPRESSION Sinus tachycardia Left bundle branch block Abnormal ECG No previous ECGs available in MUSE Confirmed by Herve Rivers ([id number]) on 04/22/2023 9:27:42 PM Brian Vogel CARE MANAGEMENT ASSOCIATE-POLITICAL SCIENCE RESEARCH ASSISTANT ECG ORDERABLES GE MUSE * (ABNORMAL) URINALYSIS MICROSCOPIC REFLEX TO CULTURE (04/22/2023 6:48 PM CDT) WBCs,UA PACKED 0 - 2 /HPF 04/22/2023 9:06 PM CDT [facility] DEPT PATH AND LAB MEDICINE RBCs,UA PACKED 0 - 3 /HPF 04/22/2023 9:06 PM CDT [facility] DEPT PATH AND LAB MEDICINE Comment,UA Criteria for reflex to culture are WBC>10, Positive Nitrite, and/or >=+1 leukocytes. If quantity is not sufficient, an addendum will follow. 04/22/2023 9:06 PM CDT [facility] DEPT PATH AND LAB MEDICINE UA Reflex Specimen Type and Source URINE CATHETER, IN AND OUT 04/22/2023 6:16 PM CDT [facility] DEPT PATH AND LAB MEDICINE Bacteria,UA MODERATE(A) NEG-NEG 04/22/2023 9:06 PM CDT [facility] DEPT PATH AND LAB MEDICINE Uric Acid Crystals FEW 04/22/2023 9:06 PM CDT [facility] DEPT PATH AND LAB MEDICINE Squamous Epithelial Cells 2-5 0 - 5 04/22/2023 9:06 PM CDT [facility] DEPT PATH AND LAB MEDICINE Amorphous Sedimate,UA FEW 04/22/2023 9:06 PM CDT [facility] DEPT PATH AND LAB MEDICINE Urine (Catheter, In and Out) 04/22/2023 6:48 PM CDT 04/22/2023 7:40 PM CDT Brian Vogel CARE MANAGEMENT ASSOCIATE-POLITICAL SCIENCE RESEARCH ASSISTANT URINE ORDERABLES [facility] DEPT PATH AND LAB MEDICINE [address] [place] [address], [place] * (ABNORMAL) URINALYSIS DIPSTICK REFLEX TO CULTURE (04/22/2023 6:48 PM CDT) Color,UA YELLOW 04/22/2023 9:06 PM CDT [facility] DE[facility] PATH AND LAB MEDICINE Turbidity,UA 2+(A) CLEAR-EDUARDA R 04/22/2023 9:06 PM CDT [facility] DE[facility] PATH AND LAB MEDICINE Specific Niles-Urine 1.017 1.005 - 1.030 04/22/2023 9:06 PM CDT [facility] DE[facility] PATH AND LAB MEDICINE Comment:NOTE NEW REFERENCE R VALERIO pH,UA 5.0 5.0 - 8.0 04/22/2023 9:06 PM CDT [facility] PATH AND LAB MEDICINE Protein,UA 2+(A) NEG-NEG 04/22/2023 9:06 PM CDT [facility] PATH AND LAB MEDICINE Glucose,UA NEG NEG-NEG 04/22/2023 9:06 PM CDT [facility] PATH AND LAB MEDICINE Ketones,UA 1+(A) NEG-NEG 04/22/2023 9:06 PM CDT [facility] DEPT PATH AND LAB MEDICINE Bilirubin,UA NEG NEG-NEG 04/22/2023 9:06 PM CDT REPLACED BY [facility] DEPT PATH AND LAB MEDICINE Blood,UA 3+(A) NEG-NEG 04/22/2023 9:06 PM CDT [facility] DE[facility] PATH AND LAB MEDICINE Urobilinogen,U A NORMAL NORM-GENE L 04/22/2023 9:06 PM CDT [facility] PATH AND LAB MEDICINE Nitrite,UA NEG NEG-NEG 04/22/2023 9:06 PM CDT [facility] PATH AND LAB MEDICINE Leukocytes,UA 3+(A) NEG-NEG 04/22/2023 9:06 PM CDT [facility] PATH AND LAB MEDICINE Urine Ascorbic Acid, UA NEG NEG-NEG 04/22/2023 9:06 PM CDT [facility] DE[facility] PATH AND LAB MEDICINE URINE SPECIMEN / Unknown 04/22/2023 6:48 PM CDT 04/22/2023 7:40 PM CDT Brian Vogel CARE MANAGEMENT ASSOCIATE-POLITICAL SCIENCE RESEARCH ASSISTANT URINE ORDERABLES [facility] PATH AND LAB MEDICINE [address] [place] [address], * (ABNORMAL) POC BLOOD GAS ARTERIAL (04/22/2023 6:47 PM CDT) PH-ART-POC 7.29(L) 7.35 - 7.45 04/22/2023 6:50 PM CDT [facility] DEPT PATH AND LAB MEDICINE POC IHR2-JCO-ZLW 38 35 - 45 MMHG 04/22/2023 6:50 PM CDT [facility] DEPT PATH AND LAB MEDICINE POC PO2-ART-POC 82 80 - 100 MMHG 04/22/2023 6:50 PM CDT [facility] DEPT PATH AND LAB MEDICINE POC Base Def-ART-POC 9.0 MMOL/L 04/22/2023 6:50 PM CDT [facility] DEPT PATH AND LAB MEDICINE POC O2 Sat-ART-POC 95.0 95 - 99 % 04/22/2023 6:50 PM CDT [facility] PATH AND LAB MEDICINE POC Bicarbonate-AR T-POC 18.1(L) 21 - 28 MMOL/L 04/22/2023 6:50 PM CDT [facility] PATH AND LAB MEDICINE POC 04/22/2023 6:4 7 PM CDT 04/22/2023 6:50 PM CDT Kate De La Cruz MD OTHER LABORATORY [facility] PATH AND LAB MEDICINE POC [address] [place] [address] * POC SODIUM (04/22/2023 6:47 PM CDT) Sodium-POC 141 137 - 147 MMOL/L 04/22/2023 6:50 PM CDT [facility] DE[facility] PATH AND LAB MEDICINE POC 04/22/2023 6:4 7 PM CDT 04/22/2023 6:50 PM CDT Kate De La Cruz MD OTHER LABORATORY Performing Organization Address City/[facility]/ZIP Co de Phone Number [facility] PATH AND LAB MEDICINE POC [address] [place] [address] * POC POTASSIUM (04/22/2023 6:47 PM CDT) Potassium-POC 4.5 3.5 - 5.1 MMOL/L 04/22/2023 6:50 PM CDT [facility] PATH AND LAB MEDICINE POC 04/22/2023 6:4 7 PM CDT 04/22/2023 6:50 PM CDT Kate De La Cruz MD OTHER LABORATORY Performing Organization Address [facility] Co de Phone Number [facility] PATH AND LAB MEDICINE POC [address] [place] [address] * POC HEMATOCRIT (04/22/2023 6:47 PM CDT) Hemoglobin POC 12.2 12.0 - 15.0 GM/DL 04/22/2023 6:50 PM CDT [facility] PATH AND LAB MEDICINE POC Hematocrit POC 36.0 36 - 45 % 04/22/2023 6:50 PM CDT [facility] PATH AND LAB MEDICINE POC 04/22/2023 6:4 7 PM CDT 04/22/2023 6:50 PM CDT Kate De La Cruz MD OTHER LABORATORY Performing Organization Address City/[facility]/ZIP Co de Phone Number [facility] PATH AND LAB MEDICINE POC [address] [place] [address] * (ABNORMAL) PTT (APTT) (04/22/2023 6:40 PM CDT) APTT 39.3(H) 24.0 - 36.5 SEC 04/22/2023 8:06 PM CDT [facility] PATH AND LAB MEDICINE BLOOD / Unknown 04/22/2023 6:40 PM CDT 04/22/2023 6:55 PM CDT Brian Voegl CARE MANAGEMENT ASSOCIATE-POLITICAL SCIENCE RESEARCH ASSISTANT LABORATORY ORDERABLE S [facility] PATH AND LAB MEDICINE [address] [place] [address], [place] * (ABNORMAL) PROTIME INR (PT) (04/22/2023 6:40 PM CDT) Protime 15.1(H) 9.5 - 14.2 SEC 04/22/2023 8:06 PM CDT [facility] PATH AND LAB MEDICINE INR 1.4(H) 0.8 - 1.2 04/22/2023 8:06 PM CDT [facility] PATH AND LAB MEDICINE BLOOD / Unknown 04/22/2023 6:40 PM CDT 04/22/2023 6:55 PM CDT Brian Vogel CARE MANAGEMENT ASSOCIATE-POLITICAL SCIENCE RESEARCH ASSISTANT LABORATORY ORDERABLE S [facility] PATH AND LAB MEDICINE [address] [place] [address], [place] * (ABNORMAL) MAGNESIUM (04/22/2023 6:40 PM CDT) Magnesium 2.8(H) 1.6 - 2.6 mg/dL 04/22/2023 8:11 PM CDT [facility] PATH AND LAB MEDICINE BLOOD / Unknown 04/22/2023 6:40 PM CDT 04/22/2023 6:55 PM CDT Brian Voegl CARE MANAGEMENT ASSOCIATE-POLITICAL SCIENCE RESEARCH ASSISTANT LABORATORY ORDERABLE S [facility] PATH AND LAB MEDICINE [address] [place] [address], [place] * IONIZED CALCIUM (04/22/2023 6:40 PM CDT) Ionized Calcium 1.21 1.0 - 1.3 MMOL/L 04/22/2023 7:00 PM CDT [facility] PATH AND LAB MEDICINE BLOOD / Unknown 04/22/2023 6:40 PM CDT 04/22/2023 6:58 PM CDT Brian Vogel CARE MANAGEMENT ASSOCIATE-POLITICAL SCIENCE RESEARCH ASSISTANT LABORATORY ORDERABLE S [facility] PATH AND LAB MEDICINE [address] [place] [address], [place] * TELEMETRY STRIPS-SCAN (04/22/2023 12:00 AM CDT) Narrative 04/22/2023 12:00 AM CDT Ordered by an unspecified provider. Scanned Document PROCEDURE DUMMY ORDE RS * TELEMETRY STRIPS-SCAN (04/22/2023 12:00 AM CDT) Narrative 04/22/2023 12:00 AM CDT Ordered by an unspecified provider. Scanned Document PROCEDURE DUMMY ORDE RS * TELEMETRY STRIPS-SCAN (04/22/2023 12:00 AM CDT) Narrative 04/22/2023 12:00 AM CDT Ordered by an unspecified provider. Scanned Document PROCEDURE DUMMY ORDE RS * TELEMETRY STRIPS-SCAN (04/22/2023 12:00 AM CDT) Narrative 04/22/2023 12:00 AM CDT Ordered by an unspecified provider. Scanned Document PROCEDURE DUMMY ORDE RS * TELEMETRY STRIPS-SCAN (04/22/2023 12:00 AM CDT) Narrative 04/22/2023 12:00 AM CDT Ordered by an unspecified provider. Scanned Document PROCEDURE DUMMY ORDE RS * TELEMETRY STRIPS-SCAN (04/22/2023 12:00 AM CDT) Narrative 04/22/2023 12:00 AM CDT Ordered by an unspecified provider. Scanned Document PROCEDURE DUMMY ORDE RS * TELEMETRY STRIPS-SCAN (04/22/2023 12:00 AM CDT) Narrative 04/22/2023 12:00 AM CDT Ordered by an unspecified provider. Scanned Document PROCEDURE DUMMY ORDE RS * TELEMETRY STRIPS-SCAN (04/22/2023 12:00 AM CDT) Narrative 04/22/2023 12:00 AM CDT Ordered by an unspecified provider. Scanned Document PROCEDURE DUMMY ORDE RS * TELEMETRY STRIPS-SCAN (04/22/2023 12:00 AM CDT) Narrative 04/22/2023 12:00 AM CDT Ordered by an unspecified provider. Scanned Document PROCEDURE DUMMY ORDE RS * TELEMETRY STRIPS-SCAN (04/22/2023 12:00 AM CDT) Narrative 04/22/2023 12:00 AM CDT Ordered by an unspecified provider. Scanned Document PROCEDURE DUMMY ORDE RS * TELEMETRY STRIPS-SCAN (04/22/2023 12:00 AM CDT) Narrative 04/22/2023 12:00 AM CDT Ordered by an unspecified provider. Scanned Document PROCEDURE DUMMY ORDE RS * TELEMETRY STRIPS-SCAN (04/22/2023 12:00 AM CDT) Narrative 04/22/2023 12:00 AM CDT Ordered by an unspecified provider. Scanned Document PROCEDURE DUMMY ORDE RS * TELEMETRY STRIPS-SCAN (04/22/2023 12:00 AM CDT) Narrative 04/22/2023 12:00 AM CDT Ordered by an unspecified provider. Scanned Document PROCEDURE DUMMY ORDE RS * TELEMETRY STRIPS-SCAN (04/22/2023 12:00 AM CDT) Narrative 04/22/2023 12:00 AM CDT Ordered by an unspecified provider. Scanned Document PROCEDURE DUMMY ORDE RS * TELEMETRY STRIPS-SCAN (04/22/2023 12:00 AM CDT) Narrative 04/22/2023 12:00 AM CDT Ordered by an unspecified provider. Scanned Document PROCEDURE DUMMY ORDE RS * TELEMETRY STRIPS-SCAN (04/22/2023 12:00 AM CDT) Narrative 04/22/2023 12:00 AM CDT Ordered by an unspecified provider. Scanned Document PROCEDURE DUMMY ORDE RS * TELEMETRY STRIPS-SCAN (04/22/2023 12:00 AM CDT) Narrative 04/22/2023 12:00 AM CDT Ordered by an unspecified provider. Scanned Document PROCEDURE DUMMY ORDE RS * TELEMETRY STRIPS-SCAN (04/22/2023 12:00 AM CDT) Narrative 04/22/2023 12:00 AM CDT Ordered by an unspecified provider. Scanned Document PROCEDURE DUMMY ORDE RS * TELEMETRY STRIPS-SCAN (04/22/2023 12:00 AM CDT) Narrative 04/22/2023 12:00 AM CDT Ordered by an unspecified provider. Scanned Document PROCEDURE DUMMY ORDE RS * TELEMETRY STRIPS-SCAN (04/22/2023 12:00 AM CDT) Narrative 04/22/2023 12:00 AM CDT Ordered by an unspecified provider. Scanned Document PROCEDURE DUMMY ORDE RS * TELEMETRY STRIPS-SCAN (04/22/2023 12:00 AM CDT) Narrative 04/22/2023 12:00 AM CDT Ordered by an unspecified provider. Scanned Document PROCEDURE DUMMY ORDE RS * TELEMETRY STRIPS-SCAN (04/22/2023 12:00 AM CDT) Narrative 04/22/2023 12:00 AM CDT Ordered by an unspecified provider. Scanned Document PROCEDURE DUMMY ORDE RS * TELEMETRY STRIPS-SCAN (04/22/2023 12:00 AM CDT) Narrative 04/22/2023 12:00 AM CDT Ordered by an unspecified provider. Scanned Document PROCEDURE DUMMY ORDE RS * TELEMETRY STRIPS-SCAN (04/22/2023 12:00 AM CDT) Narrative 04/22/2023 12:00 AM CDT Ordered by an unspecified provider. Scanned Document PROCEDURE DUMMY ORDE RS * TELEMETRY STRIPS-SCAN (04/22/2023 12:00 AM CDT) Narrative 04/22/2023 12:00 AM CDT Ordered by an unspecified provider. Scanned Document PROCEDURE DUMMY ORDE RS * TELEMETRY STRIPS-SCAN (04/22/2023 12:00 AM CDT) Narrative 04/22/2023 12:00 AM CDT Ordered by an unspecified provider. Scanned Document PROCEDURE DUMMY ORDE RS * TELEMETRY STRIPS-SCAN (04/22/2023 12:00 AM CDT) Narrative 04/22/2023 12:00 AM CDT Ordered by an unspecified provider. Scanned Document PROCEDURE DUMMY ORDE RS * TELEMETRY STRIPS-SCAN (04/22/2023 12:00 AM CDT) Narrative 04/22/2023 12:00 AM CDT Ordered by an unspecified provider. Scanned Document PROCEDURE DUMMY ORDE RS * TELEMETRY STRIPS-SCAN (04/22/2023 12:00 AM CDT) Narrative 04/22/2023 12:00 AM CDT Ordered by an unspecified provider. Scanned Document PROCEDURE DUMMY ORDE RS * TELEMETRY STRIPS-SCAN (04/22/2023 12:00 AM CDT) Narrative 04/22/2023 12:00 AM CDT Ordered by an unspecified provider. Scanned Document PROCEDURE DUMMY ORDE RS * TELEMETRY STRIPS-SCAN (04/22/2023 12:00 AM CDT) Narrative 04/22/2023 12:00 AM CDT Ordered by an unspecified provider. Scanned Document PROCEDURE DUMMY ORDE RS * TELEMETRY STRIPS-SCAN (04/22/2023 12:00 AM CDT) Narrative 04/22/2023 12:00 AM CDT Ordered by an unspecified provider. Scanned Document PROCEDURE DUMMY ORDE RS * TELEMETRY STRIPS-SCAN (04/22/2023 12:00 AM CDT) Narrative 04/22/2023 12:00 AM CDT Ordered by an unspecified provider. Scanned Document PROCEDURE DUMMY ORDE RS * TELEMETRY STRIPS-SCAN (04/22/2023 12:00 AM CDT) Narrative 04/22/2023 12:00 AM CDT Ordered by an unspecified provider. Scanned Document PROCEDURE DUMMY ORDE RS * TELEMETRY STRIPS-SCAN (04/22/2023 12:00 AM CDT) Narrative 04/22/2023 12:00 AM CDT Ordered by an unspecified provider. Scanned Document PROCEDURE DUMMY ORDE RS * TELEMETRY STRIPS-SCAN (04/22/2023 12:00 AM CDT) Narrative 04/22/2023 12:00 AM CDT Ordered by an unspecified provider. Scanned Document PROCEDURE DUMMY ORDE RS * TELEMETRY STRIPS-SCAN (04/22/2023 12:00 AM CDT) Narrative 04/22/2023 12:00 AM CDT Ordered by an unspecified provider. Scanned Document PROCEDURE DUMMY ORDE RS * TELEMETRY STRIPS-SCAN (04/22/2023 12:00 AM CDT) Narrative 04/22/2023 12:00 AM CDT Ordered by an unspecified provider. Scanned Document PROCEDURE DUMMY ORDE RS * TELEMETRY STRIPS-SCAN (04/22/2023 12:00 AM CDT) Narrative 04/22/2023 12:00 AM CDT Ordered by an unspecified provider. Scanned Document PROCEDURE DUMMY ORDE RS from Last 3 Months Advance Directives Latest Code Status on File Code Status Date Activated Date Inactivated Comments Full Code 04/22/2023 5:51 PM 05/01/2023 7:26 PM Question Answer Comments Provider has discussed Code Status w/Patient or Family? 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
--- OUTSIDE RECORDS SUMMARY | 2023-05-16 14:37 | XMS REPORT | Encounter Summary ---
Author Author [facility] Organization [facility] Address Unknown Phone Unavailable Care Team Providers Care Public Health Teacher Name Role Phone Dion Be DO PCP [phone] Encounter Details Date Type Department Care Team Description 05/06/2023 Travel Social History Tobacco Use Types Packs/Day Years [...] on file documented as of this encounter Functional Status Functional Status Response Date of Assess ment Does the patient have a hearing impairment: No 05/06/2023 Does the patient have a visual impairment: No 05/06/2023 Does the patient have impaired ambulation: No 05/06/2023 Cognitive Status Response Date of Assessm ent Does the patient have a cognitive impairment: No 05/06/2023 documented as of this encounter Plan of Treatment Not on file documented as of this encounter Goals Goal Patient Goal Type Associated Problems Recent Progress Patient-Stated? Author Recover from illness [facility] On track(04/29/20 12:13 PM CDT) No Angelica Canada RN documented as of this encounter Visit Diagnoses Not on filedocumented in this encounter Additional Health Concerns Assessment Noted Time A fall risk assessment has been complete d for the patient 05/06/2023 1:59 PM CDT documented as of this encounter Care Teams Public Health Teacher Relationship Specialty Start Date End Date Dion Be DO [address] [place] [address] PCP - General Family Medicine 04/22/23 documented as of this encounter
--- OUTSIDE RECORDS SUMMARY | 2023-05-16 14:38 | XMS REPORT | Encounter Summary ---
Author Author [facility] Organization [facility] Address Unknown Phone Unavailable Care Team Providers Care Motel Manager Name Role Phone Dion Be DO PCP Reason for Visit * Auth/Cert (Routine) Specialty Diagnoses / Procedures Referred By Contaddison t Referred To Contact Diagnoses Septic shock (HCC) Sepsis / Ureteral stone Referral ID Status Reason Start Date Expiration Date Visits Re quested Visits Authorized [id number] 1 1 Encounter Details Date Type Department Care Team Description 04/23/2023 4:21 AM CDT Anesthesia Event Operating Room: [facility] [address] [facility] [address] [place] [id number] Oscar Del Toro MD [address] [place] [address] Devon Darling Jr., PROJECT CONTROL OFFICER [address] [place] [address] Anesthesia Record Procedure Summary Procedure Name Responsible Anesthesiologist Anesthesia Start Time Anesthesia Stop Time CYSTOURETHROSCOPY WITH INDWELLING URETERAL STENT INSERTION (Right: Ureter) Oscar Del Toro MD 04/23/23 0421 04/23/23 060 0 Events Date Time Event Comment 04/23/2023 0408 AN Equip Check 0421 In Room 0421 Anes Start 0425 An Start Data 0426 An Induction The patient was reevaluated immediately before moderate or deep sedation use and before anesthesia induction. 0429 An Intubation 0431 Art Line 0432 Anesthesia Ready 0432 Timeout 0435 Proc Start 0545 an samantha now 0600 an stop data 0600 An Stop I completed my SBAR handoff to the receiving nurse. Meds * Agents Name O2 N2O Inspired N2O Sevoflurane Inspired Sevoflurane * Blood No blood administrations on file. Lines, Drains, and Airways Type Details Placement Removal Indwelling Urinary Catheter 04/23/23; Yes; Other (Comment) (in OR); Standard 2-way 04/23/23 0000 by Yandy Harkins RN PICC (prior to admission) ; Double; Yes; Arm, left upper; 04/25/23; 1253; Yes 04/22/23 1806 by Nadine Beebe RN 04/25/23 1253 by Danielle Mata RN Peripheral IV (present on admission); L; Wrist; 18 G; 04/29/23 04/22/23 1807 by Nadine Beebe RN 04/29/23 0000 by Sabas Saxena RN Indwelling Urinary Catheter 04/22/23 (present on admission); 1830; Yes; Standard 2-way; 04/23/23; 0430 04/22/23 1830 by Nadine Beebe RN 04/23/23 0430 by Yandy Harkins RN Indwelling Urinary Catheter 04/22/23; 1830; Other (Comment) (BH65); Standard 2-way; 04/23/23; 0430 04/22/23 1830 by Nadine Beebe RN 04/23/23 0430 by Yandy Harkins RN Endotracheal Tube 04/23/23; 0430 (created via procedure documentation); 6.5 mm; 04/23/23; 1415 04/23/23 0430 by Devon Darling Jr., PROJECT CONTROL OFFICER 04/23/23 1415 by Rut Yip, BRADLEY Arterial Line 04/23/23; 0430 (created via procedure documentation); 20 G; 04/23/23; 1716 04/23/23 0430 by Cristhian Clark MD 04/23/23 1716 by Rut Yip, BRADLEY Endotracheal Tube 04/23/23; 0610; Yes; Oral; 6.5 mm; Single lumen; 04/23/23; 1415 04/23/23 0610 by Viviana Mckeon RT 04/23/23 1415 by Rut Yip, BRADLEY documented in this encounter Social History Tobacco Use Types Packs/Day Years [...] on file documented as of this encounter OR Notes * Anesthesia Postprocedure Evaluation - Devon Darling Jr., ALBERTA - 04/23/2023 6:04 AM CDT Post-Anesthesia Evaluation Name: Silke Hansen : 1945 Age: 77 y.o. Sex: female Procedure Information Anesthesia Start Date/Time: 04/23/23 0421 Procedures: CYSTOURETHROSCOPY WITH INDWELLING URETERAL STENT INSERTION (Right: Ureter) - Right CYSTOURETHROSCOPY WITH URETERAL CATHETERIZATION WITH/ WITHOUT IRRIGATION/ INSTILLATION/ URETEROPYELOGRAPHY (Right: Ureter) RETROGRADE UROGRAPHY WITH/ WITHOUT KUB (Right: Ureter) Location: MAIN OR 27 / Main OR/Periop Surgeons: Jerald Lindquist MD Post-Anesthesia Vitals ABP: 121/46 (04/23 545) No vitals data found for the desired time range. Post Anesthesia Evaluation Note Evaluation location: ICU Patient participation: patient intubated, unable to assess; expectation of recovery by ICU physician Level of consciousness: intubated & sedated Ventilator settings Mode: SIMV FIO2: 100 Tidal Volume: 400 Vent rate: 14 PEEP: 7 Pain score: Pain scale: MAKI. Pain management: adequate Hydration: normovolemia Temperature: 36.0C - 38.4C Airway patency: adequate Perioperative Events Post-op nausea and vomiting: no PONV Postoperative Status Cardiovascular status: hemodynamically stable Respiratory status: ETT Additional comments: Pt transported to ICU on standard monitors. Report given to BUSHING AND BROACH OPERATOR. VSS. No complications. ICU Information VasoactiveDrips:norepinephrine infusion Blood Products Given-no Staff involved in transport include: PROJECT CONTROL OFFICER, OR nurse and resp therapy Perioperative Events Encounter Notable Events Notable Event Outcome Phase Comment Unable to extubate Ongoing Treatment Intraprocedure Planned ICU extubation Associated attestation - Oscar Del Toro MD - 04/23/2023 6:41 AM CDT ATTESTATION Post-Anesthesia Evaluation and ICU Transfer Note Attestation: I evaluated the patient and the indicated post-anesthesia care is discharge and transfer to the ICU physician-lead team. Staff name: Oscar Del Toro MD Date: 04/23/2023 * Anesthesia Procedure Notes - Devon Darling Jr., CRNA - 04/23/2023 4:38 AM CDTAssociated Order(s): A-LINE INSERTION Anesthesia Procedure: Arterial Line Placement A-LINE INSERTION [...] MD Authorized by: Oscar Del Toro MD Associated attestation - Oscar Del Toro MD - 04/23/2023 6:40 AM CDT I was present during the entire procedure performed by a resident. * Anesthesia Procedure Notes - Devon Darling Jr., CRNA - 04/23/2023 4:35 AM CDTAssociated Order(s): AIRWAY INSERTION Procedure: Airway Placement AIRWAY INSERTION Date/Time: 04/23/2023 [...] not difficult Medication: Performed by: Devon Darling Jr. PROJECT CONTROL OFFICER Authorized by: Oscar Del Toro MD * Anesthesia Preprocedure Evaluation - Jonathan Carlos MD - 04/23/2023 4:16 AM CDT Anesthesia Pre-Procedure Evaluation Name: Silke Hansen : 1945 Age: 77 y.o. Sex: female Procedure Info: Procedure Information Date/Time: 04/23/23429 Procedure: CYSTOURETHROSCOPY WITH INDWELLING URETERAL STENT INSERTION (Right) Location: MAIN OR 27 / Main OR/Periop Surgeons: Jerald Lindquist MD Physical Assessment Vital Signs (last filed in past 24 hours): BP: 93/66 (04/23 400) Temp: 36.8 C (98.2 F) (04/23 400) Pulse: 83 (04/23 400) Respirations: 26 PER MINUTE (04/23 400) SpO2: 96 % (04/23 400) O2 Percent: 40 % (04/23 410) O2 Device: CPAP/BiPAP (04/23 410) O2 Liter Flow: 12 Lpm (04/23 200) Height: 160 cm (5' 3") (04/22 1751) Weight: 80.9 kg (178 lb 5.6 oz) (04/23 400) Patient History Allergies Allergen Reactions Codeine UNKNOWN Reported in OSH records Current Medications Not on File Review of Systems/Medical History PONV Screening: Non-smoker and Female sex No history of anesthetic complications No family history of anesthetic complications Pulmonary Not a current smoker No indications/hx of asthma no COPD Cardiovascular Hypertension, No past CO: No hx of coronary artery disease No coronary artery bypass graft GI/Hepatic/Renal No liver disease: No renal disease: Neuro/Psych No seizures No CVA Endocrine/Other No diabetes Physical Exam Airway Findings Mallampati: unable to assess Dental Findings: Comments: Unable to assess - patient with poor mental status and Bipap in place Cardiovascular Findings: Rhythm: regular Rate: normal Abdominal Findings: Obese Neurological Findings: Altered mental status Constitutional findings: No acute distress Previous Airway Procedure Notes Displaying the 3 most recent records No records found. Patient Lines/Drains/Airways Status Active Lines: Name Placement date Placement time Site Days PICC Double Arm, left upper -- -- -- -- Indwelling Urinary Catheter Standard 2-way 04/22/23 1830 -- 1 Peripheral IV Left Wrist 18 G -- -- -- -- Diagnostic Tests Hematology: Lab Results Component Value Date HGB 10.7 04/23/2023 HCT 32.1 04/23/2023 PLTCT 163 04/23/2023 WBC 33.3 04/23/2023 NEUT 94 04/22/2023 ANC 34.39 04/22/2023 ALC 0.71 04/22/2023 BERNADINE 3 04/22/2023 AMC 1.13 04/22/2023 EOSA 1 04/22/2023 ABC 0.11 04/22/2023 MCV 85.8 04/23/2023 MCH 28.6 04/23/2023 MCHC 33.3 04/23/2023 MPV 8.7 04/23/2023 RDW 14.3 04/23/2023 General Chemistry: Lab Results Component Value Date NA 140 04/22/2023 K 4.3 04/22/2023 CL 112 04/22/2023 CO2 18 04/22/2023 GAP 10 04/22/2023 BUN 21 04/22/2023 CR 0.77 04/22/2023 GLU 133 04/22/2023 CA 8.4 04/22/2023 ALBUMIN 3.6 04/22/2023 OBSCA 1.21 04/22/2023 MG 2.8 04/22/2023 TOTBILI 0.7 04/22/2023 PO4 2.5 04/22/2023 Coagulation: Lab Results Component Value Date PT 15.1 04/22/2023 PTT 39.3 04/22/2023 INR 1.4 04/22/2023 PAC Plan Anesthesia Plan ASA score: 2 emergent Plan: general and invasive monitoring Induction method: intravenous NPO status: waived due to emergency Informed Consent Plan/risks discussed with: son. Special considerations: Rastafari. Plan discussed with: anesthesiologist. Alerts * Anesthesia Preprocedure Evaluation - Devon Darling Jr., PROJECT CONTROL OFFICER - 04/23/2023 4:04 AM CDT Anesthesia Pre-Procedure Evaluation Name: Silke Hansen : 1945 Age: 77 y.o. Sex: female Procedure Info: Procedure Information Date/Time: 04/23/23429 Procedure: CYSTOURETHROSCOPY WITH INDWELLING URETERAL STENT INSERTION (Right) Location: MAIN OR 27 / Main OR/Periop Surgeons: Jerald Lindquist MD Physical Assessment Vital Signs (last filed in past 24 hours): BP: 152/83 (04/23 200) Temp: 36.9 C (98.5 F) (04/23 0000) Pulse: 112 (04/23 215) Respirations: 20 PER MINUTE (04/23 215) SpO2: 88 % (04/23 215) O2 Percent: 40 % (04/23 215) O2 Device: CPAP/BiPAP (04/23 215) O2 Liter Flow: 12 Lpm (04/23 200) Height: 160 cm (5' 3") (04/22 1751) Weight: 81.1 kg (178 lb 12.7 oz) (04/22 1751) Patient History Allergies Allergen Reactions Codeine UNKNOWN Reported in OSH records Current Medications Not on File Review of Systems/Medical History PONV Screening: Non-smoker and Female sex Pulmonary Neuro/Psych No chronic opioid use PHYSICAL EXAM Previous Airway Procedure Notes Displaying the 3 most recent records No records found. Patient Lines/Drains/Airways Status Active Lines: Name Placement date Placement time Site Days PICC Double Arm, left upper -- -- -- -- Indwelling Urinary Catheter Standard 2-way 04/22/23 1830 -- 1 Peripheral IV Left Wrist 18 G -- -- -- -- Diagnostic Tests Hematology: Lab Results Component Value Date HGB 11.8 04/22/2023 HCT 35.6 04/22/2023 PLTCT 157 04/22/2023 WBC 36.7 04/22/2023 NEUT 94 04/22/2023 ANC 34.39 04/22/2023 ALC 0.71 04/22/2023 BERNADINE 3 04/22/2023 AMC 1.13 04/22/2023 EOSA 1 04/22/2023 ABC 0.11 04/22/2023 MCV 86.0 04/22/2023 MCH 28.4 04/22/2023 MCHC 33.1 04/22/2023 MPV 8.8 04/22/2023 RDW 14.2 04/22/2023 General Chemistry: Lab Results Component Value Date NA 140 04/22/2023 K 4.3 04/22/2023 CL 112 04/22/2023 CO2 18 04/22/2023 GAP 10 04/22/2023 BUN 21 04/22/2023 CR 0.77 04/22/2023 GLU 133 04/22/2023 CA 8.4 04/22/2023 ALBUMIN 3.6 04/22/2023 OBSCA 1.21 04/22/2023 MG 2.8 04/22/2023 TOTBILI 0.7 04/22/2023 PO4 2.5 04/22/2023 Coagulation: Lab Results Component Value Date PT 15.1 04/22/2023 PTT 39.3 04/22/2023 INR 1.4 04/22/2023 PAC Plan PLAN Alerts documented in this encounter Plan of Treatment Not on file documented as of this encounter Procedures Procedure Name Priority Date/Time Associated Diagnosis Comments ANESTHESIA ARTERIAL LINE INSERTION Routine 04/23/2023 4:30 AM CDT ANESTHESIA ETT Routine 04/23/2023 4:30 AM CDT documented in this encounter Results * ANESTHESIA ARTERIAL LINE INSERTION (04/23/2023 4:30 [...] Toro MD ANESTHESIA ORDERABLE S * ANESTHESIA ETT (04/23/2023 4:30 AM CDT) [...] Oscar Del Toro MD ANESTHESIA ORDERABLE S documented in this encounter Visit Diagnoses Not on filedocumented in this encounter Administered Medications Inactive Administered Medications Medication Order MAR Action Action Date Dose Rate Site artificial tears (PF) single dose ophthalmic solution Both Eyes, INTRA-PROCEDURE MED, Starting on Fri04/23/23 at 0429, Until Fri04/23/23 at 0604, Anesthesia Intra-op Given 04/23/2023 4:29 AM CDT 2 drops dexamethasone sodium phosphate (DECADRON PHOSPHATE) injection Intravenous, INTRA-PROCEDURE MED, Starting on Fri04/23/23 at 0445, Until Fri04/23/23 at 0604, Anesthesia Intra-op Given 04/23/2023 4:45 AM CDT 4 mg fentaNYL citrate PF (SUBLIMAZE) injection Intravenous, INTRA-PROCEDURE MED, Starting on Fri04/23/23 at 0426, Until Fri04/23/23 at 0604, Anesthesia Intra-op Given 04/23/2023 4:26 AM CDT 100 mcg lidocaine (PF) injection Intravenous, INTRA-PROCEDURE MED, Starting on Fri04/23/23 at 0426, Until Fri04/23/23 at 0604, Anesthesia Intra-op Given 04/23/2023 4:26 AM CDT 80 mg norepinephrine (LEVOPHED) IV drip (std conc)(premade) 250 mL, Intravenous, INTRA-PROCEDURE MED(CONT), Starting on Fri04/23/23 at 0432, Until Fri04/23/23 at 0604, Anesthesia Intra-op Given - New Bag 04/23/2023 4:32 AM CDT 0.05 mcg/kg/min 15.169 mL/hr ondansetron HCL (PF) (ZOFRAN (PF)) injection Intravenous, INTRA-PROCEDURE MED, Starting on Fri04/23/23 at 0445, Until Fri04/23/23 at 0604, Anesthesia Intra-op Given 04/23/2023 4:45 AM CDT 4 mg phenylephrine (KAYLEIGH-SYNEPHRINE) injection syringe Intravenous, INTRA-PROCEDURE MED, Starting on Fri04/23/23 at 0426, Until Fri04/23/23 at 0604, Anesthesia Intra-op Given 04/23/2023 4:32 AM CDT 100 mcg documented in this encounter Additional Health Concerns Assessment Noted Time A fall risk assessment has been complete d for the patient 04/23/2023 8:00 PM CDT documented as of this encounter Care Teams Motel Manager Relationship Specialty Start Date End Date Dion Be DO [address] [place] [address] PCP - General Family Medicine 04/22/23 documented as of this encounter
--- OUTSIDE RECORDS SUMMARY | 2023-05-16 14:38 | XMS REPORT | Encounter Summary ---
Author Author [facility] Organization [facility] Address Unknown Phone Unavailable Care Team Providers Care Food And Nutrition Teacher Name Role Phone Dion Be PCP [phone] Reason for Referral * Consultation (Discharge Pending) - New Request Specialty Diagnoses / Procedures Referred By Contac t Referred To Contact Cardiology Procedures APPOINTMENT REQUEST: CARDIOLOGY HEART FAILURE Kenya Lisa PA-C [address] [address] [place] [address] [facility] [address] [address], [address] [place] [address] Referral ID Status Reason Start Date Expiration Date V isits Requested Visits Authorized [id number] New Request 04/29/2023 04/28/2024 1 1 * Consult, Test & Treat (Discharge Pending) - New Request Specialty Diagnoses / Procedures Referred By Contac t Referred To Contact Procedures REQUEST FOR CARDIOLOGY APPOINTMENT Kenya Lisa PA-C [address] [address] Referral ID Status Reason Start Date Expiration Date V isits Requested Visits Authorized [id number] New Request 04/29/2023 04/28/2024 1 1 Reason for Visit * Auth/Cert (Routine) Specialty Diagnoses / Procedures Referred By Contac t Referred To Contact Diagnoses Septic shock (HCC) Sepsis / Ureteral stone Referral ID Status Reason Start Date Expiration Date Visits Re quested Visits Authorized [id number] 1 1 Encounter Details Date Type Department Care Team Description 04/22/2023 5:49 PM CDT - 05/01/2023 5:00 PM CDT Hospital Encounter Patient Care Unit 46: [facility] 4000 [facility] 4 [place] [id number] Briana Noel MD [address] [facility] [address] [place] [address] Kate De La Cruz MD [address] [facility] [address] [place] [address] Rasta Quinones MD 4000 [place] [address] Hussain Jorge DO 4000 [place] [address] Hussain Snyder MD [address] [place] [address] Hussain Slaughter MD [address] [place] [address] Septic shock (HCC) Discharge Disposition: Long Term Facility Social History Tobacco Use Types Packs/Day Years [...] Sign Reading Time Taken Comments Blood Pressure 125/50 05/01/2023 3:24 PM CDT Pulse 87 05/01/2023 3:24 PM CDT Temperature 36.6 C (97.8 F) 05/01/2023 3:24 PM C DT Respiratory Rate - - Oxygen Saturation 97% 05/01/2023 3:24 PM CDT Inhaled Oxygen Concentration - - Weight 79.1 kg (174 lb 6.1 oz) 05/01/2023 5:00 AM CDT Height 160 cm (5' 3") 04/24/2023 10:04 AM CDT Body Mass Index 30.89 04/24/2023 10:04 AM CDT documented in this encounter Functional Status Functional Status Response Date of Assess ment Does the patient have a hearing impairment: No 04/29/2023 documented as of this encounter Discharge Summaries * Hussain Slaughter MD - 05/01/2023 5:00 PM CDT Discharge Summary Name: Silke Hansen Date Of : 1945 Age: 77 y.o. Admit date: 04/22/2023 Discharge date: 05/01/2023 Discharge Attending: Dr. Hussain Slaughter Discharge Summary Completed By: Hussain Slaughter MD Service: [place] [id number] Reason for hospitalization: Septic shock (HCC) [A41.9, R65.21] Primary Discharge Diagnosis: Septic shock (HCC) Hospital Diagnoses: Hospital Problems Active Problems * (Principal) Septic shock (HCC) Encephalopathy Acute hypoxemic respiratory failure (HCC) Pleural effusion Tachycardia Pneumonia UTI (urinary tract infection) Bacteremia Atrial fibrillation with RVR (HCC) Systolic dysfunction Significant Past Medical History Hypertension Allergies Codeine Brief Hospital Course The patient was admitted and the following issues were addressed during this hospitalization: (withpertinent details including admission exam/imaging/labs). Silke Lee a 77 y.o.femalewith PMH of HTN who presented to OSH on 10/8 w/ c/o rlq pain and chills for 1 day. Found to be in septic shock w/ a R ureter obstructive stone. Transferred to for further care. Upon arrival to she was off pressors but increasingly altered w/ increased O2 requirements. Taken to OR early 04/23 for cystoscopy w/ right ureteral stent placement and returned to MICU intubated. Developed shock after return from OR and pressor restarted.Outside blood cultures and urine culture positive for Klebsiella oxytoca. Extubated 04/23 and pressors able to be weaned off. She developed Afib w/ RVR on 04/23. Cardiology consulted and rate controlled w/ Metoprolol.Transferred out of the ICU 04/26. Patient still with mild hypoxic respiratory failure after transfer to floor. She was diuresed with resolution of her resp failure. Echo obtained showed EF of 30-35%. Patient had a stress test later in her stay that showed "Predominantly fixed defect is identified involving the mid septal wall for left ventricle extending to the anterior and inferior wall. On quantification, the area of reversibility is approximately 4- 8% of the left ventricular myocardium (12 mL left ventricular myocardial volume). Findings are compatible with myocardial infarction with mild ning- infarct ischemia." Cardiology offered inpatient cath vs outpatient cath which patient decided to recover physically for now and then come back as outpatient for cath. At time of discharge: She will take a dose of PO Levaquin today to complete a 10 day course overall of antibiotics for her UTI/bacteremia. She will discharge with a benson in place. Urology has arranged for follow up at the one month samantha for benson exchange. Separately she will need definitive treatment of her ureteral stones in the next 2 months. Urology requesting Cardiology risk stratification prior to this procedure given her recent cardiac issues. She will follow up with Cardiology in the next 4-6 weeks for follow for her heart failure and NSTEMI. She will continue on her Apixaban (for Afib) and Plavix (for NSTEMI treatment) until at least that follow up appointment. She will continue her newly started Toprol XL 50 mg daily on discharge. Her BP does not seem high enough to support Losartan but hopefully can be started on follow up with Cardiology. She will continue Valtrex on discharge for oral HSV infection to complete 10 days of therapy. Items Needing Follow Up Pending items or areas that need to be addressed at follow up: As noted above Pending Labs and Follow Up Radiology Pending labs and/or radiology review at this time of discharge are listed below: if this area is blank, there are no items for review. Pending Labs Order Current Status UA CLEMONS TOP TUBE In process Medications Medication List START taking these medications apixaban 5 mg tablet; Commonly known as: ELIQUIS; Dose: 5 mg; Take one tablet by mouth twice daily.; Quantity: 180 tablet; Refills: 0 atorvastatin 40 mg tablet; Commonly known as: LIPITOR; Dose: 40 mg; Take one tablet by mouth daily.; Quantity: 90 tablet; Refills: 0 clopiDOGreL 75 mg tablet; Commonly known as: PLAVIX; Dose: 75 mg; Take one tablet by mouth daily.; Quantity: 90 tablet; Refills: 0 hyoscyamine 0.125 mg rapid dissolve tablet; Commonly known as: ANASPAZ; Dose: 0.125 mg; Place one tablet under tongue every 4 hours as needed.; Quantity: 180 tablet; Refills: 0 lidocaine hcl viscous 2 % solution; Commonly known as: LIDOCAINE VISCOUS; Dose: 5 mL; Swish and Spit 5 mL by mouth as directed four times daily as needed.; Quantity: 100 mL; Refills: 0 loperamide 2 mg capsule; Commonly known as: IMODIUM A-D; 1 tablet every 4 hours as needed; Refills: 0 metoprolol succinate XL 50 mg extended release tablet; Commonly known as: TOPROL XL; Dose: 50 mg; Take one tablet by mouth daily.; Quantity: 90 tablet; Refills: 0 tamsulosin 0.4 mg capsule; Commonly known as: FLOMAX; Dose: 0.4 mg; Take one capsule by mouth daily after breakfast. Do not crush, chew or open capsules. Take 30 minutes following the same meal each day.; Quantity: 90 capsule; Refills: 0 valACYclovir 1 gram tablet; Commonly known as: VALTREX; Dose: 1,000 mg; Take one tablet by mouth twice daily for 8 days. Indications: HSV; For: HSV; Refills: 0 STOP taking these medications losartan 50 mg tablet; Commonly known as: COZAAR nystatin 100,000 units/mL oral suspension; Commonly known as: MYCOSTATIN Return Appointments and Scheduled Appointments Scheduled appointments: May 06, 2023 2:00 PM Follow-up visit with JAVON Palma Cardiovascular [facility] [address] [facility] [address] May 16, 2023 9:20 AM Office visit with Endy Calderon MD Urology: [facility] (Urology) [address] [facility]. [address], [address] [facility] [address] May 29, 2023 2:30 PM Office visit with Ghazal Hook PA-C Urology: [facility] (Urology) [address] [facility]. [address] [facility] [address] Jun 12, 2023 2:30 PM Office visit with Jerald Lindquist MD Urology: [facility] (Urology) [address] [facility]. [address], [address] [facility] [address] Aug 05, 2023 9:00 AM Office visit with Derrek Barrett MD Cardiovascular Medicine: [facility], [address] (CVM Exam) [id number] [place] [address]. [address] 3, [address] [facility] [address] Things you need to do Follow up with Dion Be DO Where: [address] [facility] [address] Contact information for after-discharge care [facility] Where: [address] [facility] [address] Service: Long Term Consults, Procedures, Diagnostics, Micro, Pathology Consults: Cardiology and Urology Surgical Procedures & Dates: 04/23: Cystourethoscopy with stent placement Significant Diagnostic Studies, Micro and Procedures: noted in brief hospital course Significant Pathology: none Discharge Disposition, Condition Patient Disposition: Long Term Facility [03] Condition at Discharge: Stable Code Status Code Status History Date Active Date Inactive Code Status Order ID 04/22/2023 [id number] 05/01/2023 1926 Full Code [id number] Briana Noel MD Inpatient Patient Instructions Activity Activity as Tolerated As directed It is important to keep increasing your activity level after you leave the hospital. Moving aroundcan help prevent blood clots, lung infection (pneumonia) and other problems. Gradually increasing the number of times you are up moving around will help you return to your normal activity level morequickly. Continue to increase the number of times you are up to the chair and walking daily to return to your normal activity level. Begin to work toward your normal activity level at discharge Diet Protein/Fiber Supplement As directed Supplement: BeneProtein Amount: 1 can How often: Twice a day Regular Diet As directed You have no dietary restriction. Please continue with a healthy balanced diet. Discharge education provided to patient. Additional Orders: Case Management, Supplies, Home Health Home Health/DME None Signed: Hussain Slaughter MD 05/01/2023 cc: Primary Care Physician: Dion Be Referring physicians: Unknown, Felicia, Additional provider(s): Did we miss something? If additional records are needed, please fax a request on office letterhead to [phone]. Please include the patient's name, date of , fax number and type of information needed. Additional request can be made by email at [email or web address]. For general questions of information about electronic records sharing, call [phone]. * Tonya Patel - 05/01/2023 12:26 PM CDT PHOTOGRAPH TINTER Note: Printed and placed transfer packet with pt's chart in room per request from Perry Bolton [facility]. Tonya Slade Irish Moss Bleacher For additional assistance please contact [facility] *[phone] * Perry Bolton LMSW - 05/01/2023 11:41 AM CDT Case Management Progress Note NAME:Silke Hansen :1945 AGE: 77 y.o. ADMISSION DATE: 04/22/2023 DAYS ADMITTED: LOS: 9 days Today's Date: 05/01/2023 PLAN[facility] Expected Discharge Date: 05/01/2023 Is Patient Medically Stable: Yes Are there Barriers to Discharge? no INTERVENTION/DISPOSITION: Discharge Planning SW notified that pt is ready for d/c today. SW notified facility regarding d/c plan. SW tasked PHOTOGRAPH TINTER to deliver transfer packet to pt's mike. SW requested team to complete d/c orders. SW was notified that transport is set for 4pm. SW updated team and pt's niece. SW will fax d/c orders to facility,and updated nurse on transport time, and provided number for report [phone]. No further SW needs identified at this time. Transportation Will the Patient Use Family Transport?: Yes Transportation Name, Phone and Availability #1: Son or Support Info or Referral Positive SDOH Domains and Potential Barriers Medication Needs Financial Legal Other Discharge Disposition Selected Continued Care - Admitted Since 04/22/2023 No services have been selected for the patient. Perry Bolton LMSW Dancing Instructor Voalte, Work * Tonya Patel - 04/30/2023 2:32 PM CDT [facility] Note: Was asked to update the Q[employer] portal with the accepting facility per request of MIGUEL ANGEL Chicas. Tonya Slade Irish Moss Bleacher For additional assistance please contact [facility] *[phone] * Perry Bolton LMSW - 04/30/2023 11:55 AM CDT Case Management Progress Note NAME:Silke Hansen :1945 AGE: 77 y.o. ADMISSION DATE: 04/22/2023 DAYS ADMITTED: LOS: 8 days Today's Date: 04/30/2023 PLAN: Anticipate d/c to [facility] pending COVID result. Expected Discharge Date: 05/01/2023 Is Patient Medically Stable: Yes Are there Barriers to Discharge? no INTERVENTION/DISPOSITION: Discharge Planning Pt discussed during MPW huddle. SW followed up on referrals to SNF and was informed that [facility] is able to accept pt. [facility] was pt/families first choice. Facility stated that they need a COVID test prior to accepting. SW updated team. SW will fax COVID results once they are complete. SW [facility] also [facility] and were just requesting name of accepting facility. SW tasked PHOTOGRAPH TINTER to upload name of accepting facility. SW will continue to follow and assist with d/c planning. Transportation Will the Patient Use Family Transport?: Yes Transportation Name, Phone and Availability #1: Son or Support Info or Referral Positive SDOH Domains and Potential Barriers Medication Needs Financial Legal Other Discharge Disposition Selected Continued Care - Admitted Since 04/22/2023 No services have been selected for the patient. Perry Bolton LMSW Dancing Instructor Voalte, Work * Tonya Patel - 04/29/2023 3:38 PM CDT [facility] Note: Started a SNF auth via the Qio portal with a auth ID#: [id number] per request of MIGUEL ANGEL Chicas. Tonya Slade Irish Moss Bleacher For additional assistance please contact [facility] * * Perry Bolton LMSW - 04/29/2023 2:19 PM CDT Case Management Progress Note NAME:Silke Hansen :1945 AGE: 77 y.o. ADMISSION DATE: 04/22/2023 DAYS ADMITTED: LOS: 7 days Today's Date: 04/29/2023 PLAN: Anticipate d/c to SNF pending facility acceptance. Expected Discharge Date: 05/01/2023 Is Patient Medically Stable: No, Please explain: workup Are there Barriers to Discharge? no INTERVENTION/DISPOSITION: Discharge Planning Pt discussed during MPW huddle. SW followed up with pt/niece regarding facility preferences. Pt/niece were agreeable for referrals to be sent to the following facilities. SW also tasked [facility] to submitfor [facility] auth. SW will continue to follow and assist with d/c planning. Referrals [facility] Transportation Will the Patient Use Family Transport?: Yes Transportation Name, Phone and Availability #1: Son or Support Info or Referral Positive SDOH Domains and Potential Barriers Medication Needs Financial Legal Other Discharge Disposition Selected Continued Care - Admitted Since 04/22/2023 No services have been selected for the patient. Perry Bolton LMSW Dancing Instructor Voalte, Work * Tonya Patel - 04/28/2023 12:03 PM CDT [facility] Note: Emailed and Delivered a SNF list per request of MIGUEL ANGEL Chicas. Tonya Slade Irish Moss Bleacher For additional assistance please contact [facility] * * Perry Bolton LMSW - 04/28/2023 9:46 AM CDT Case Management Progress Note NAME:Silke Hansen :1945 AGE: 77 y.o. ADMISSION DATE: 04/22/2023 DAYS ADMITTED: LOS: 6 days Today's Date: 04/28/2023 PLAN: Anticipate d/c to SNF pending facility acceptance and medical stability. Expected Discharge Date: 04/29/2023 Is Patient Medically Stable: No, Please explain: workup Are there Barriers to Discharge? no INTERVENTION/DISPOSITION: Discharge Planning Pt discussed during MPW huddle. SW met with pt to discuss PT/OT recs for placement. Pt was agreeable to rehab and stated that her niece will be helping to pick out facilities. Pt stated that niece would be at bedside later today. SW tasked PHOTOGRAPH TINTER to deliver a list of SNF facilities. SW will follow up with and assist with d/c planning. Transportation Will the Patient Use Family Transport?: Yes Transportation Name, Phone and Availability #1: Son or Support Info or Referral Positive SDOH Domains and Potential Barriers Medication Needs Financial Legal Other Discharge Disposition Selected Continued Care - Admitted Since 04/22/2023 No services have been selected for the patient. Perry Bolton LMSW Dancing Instructor Lesly, Work * Erin Wright - 04/24/2023 11:41 AM CDT Case Management Admission Assessment NAME:Silke Hansen :1945 AGE: 77 y.o. ADMISSION DATE: 04/22/2023 DAYS ADMITTED: LOS: 2 days Todays Date: 04/24/2023 Source of Information: patient, , son Plan Plan: Case Management Assessment, Assist PRN with SW/LUIS FERNANDOM Services Discharge planning ongoing Continue ICU Care Urology and Cardiology following Patient lives with spouse and was independent prior to admission. Patient does not use DME and has no history of HH/SNF/IPR. SW provided contact information and encouraged patient/family to call with questions or concerns. Patient Address/Phone [address] [facility] [phone] (home) Emergency Contact Extended Emergency Contact Information Primary Emergency Contact: Brennan Hansen Mobile Relation: Spouse Secondary Emergency Contact: Bhaskar Hansen Mobile Relation: Son Healthcare Directive [employer] Transportation Will the Patient Use Family Transport?: Yes Transportation Name, Phone and Availability #1: Son or Expected Discharge Date 04/29/2023 Living Situation Prior to Admission Living Arrangements Type of Residence: Home, independent Living Arrangements: Spouse/significant other How many levels in the residence?: 1 Can patient live on one level if needed?: Yes Does residence have entry and/or inside stairs?: No (Ramp to enter) Assistance needed prior to admit or anticipated on discharge: No Level of Function Prior level of function: Independent Cognitive Abilities Cognitive Abilities: Alert and Oriented Financial Resources Coverage Primary Insurance: Medicare Replacement Secondary Insurance: No insurance Source of Income Source Of Income: SSI Financial Assistance Needed? no Psychosocial Needs Mental Health Mental Health History: No Substance Use History Substance Use History Screen: No Other Current/Previous Services PCP Dion Be, , Pharmacy No Pharmacies Listed Durable Medical Equipment Durable Medical Equipment at home: Roller Walker, Wheelchair (power) (Does not use.) Home Health Receiving home health: No Hemodialysis or Peritoneal Dialysis Undergoing hemodialysis or peritoneal dialysis: No Tube/Enteral Feeds Receive tube/enteral feeds: No Infusion Receive infusions: No Private Duty Private duty help used: No Home and Community Based Services Home and community based services: No Genaro White Genaro White: N/A Hospice Hospice: No Outpatient Therapy PT: No OT: No INDUSTRIAL MAINTENANCE INSTRUCTOR: No Long Term Facility/Assisted SNF: No NH: No Inpatient Rehab IPR: No Long-Term Acute Care Hospital LTACH: No Acute Hospital Stay Acute Hospital Stay: In the past Was patient's stay within the last 30 days?: No Erin Wright LMSW, RADHAW [facility] * Faith River RN - 04/23/2023 1:00 PM CDT Case Management Progress Note NAME:Silke Hansen :1945 AGE: 77 y.o. ADMISSION DATE: 04/22/2023 DAYS ADMITTED: LOS: 1 day Today's Date: 04/23/2023 PLAN: Discharge planning ongoing Expected Discharge Date: 04/28/2023 Is Patient Medically Stable: No, Please explain: intubated Are there Barriers to Discharge? no INTERVENTION/DISPOSITION: Discharge Planning - EMR and POC reviewed. - Patient went urgently to the OR early this morning for a stent placement and remained intubated after the procedure per primary team. - Pt admitted to [facility] on: 04/22/23 for: septic shock. Pt is currently intubated and remains in theICU. At this time, CM is unable to complete an admission assessment due to: being intubated and critically ill. CM will review EMR daily and participate in huddle for ongoing medical milestones. CM will continue to remain available to provide support and will re-evaluate the appropriateness for completion of admission assessment daily. - NCM attempted to contact pts to complete CM assessment, left VM. - CM to continue to follow for support and discharge planning. Transportation Support Info or Referral Positive SDOH Domains and Potential Barriers Medication Needs Financial Legal Other Discharge Disposition Selected Continued Care - Admitted Since 04/22/2023 No services have been selected for the patient. Faith River RN documented in this encounter Medications at Time of Discharge Medication Sig Dispensed Refills Start Date End Date apixaban (ELIQUIS) 5 mg tablet Take one tablet by mouth twice daily. 180 tablet 0 05/01/2023 atorvastatin (LIPITOR) 40 mg tablet Take one tablet by mouth daily. 90 tablet 0 05/01/2023 clopiDOGreL (PLAVIX) 75 mg tablet Take one tablet by mouth daily. 90 tablet 0 05/01/2023 hyoscyamine (ANASPAZ) 0.125 mg rapid dissolve tablet Place one tablet under tongue every 4 hours as needed. 180 tablet 0 05/01/2023 lidocaine hcl viscous (LIDOCAINE VISCOUS) 2 % solution Swish and Spit 5 mL by mouth as directed four times daily as needed. 100 mL 0 05/01/2023 loperamide (IMODIUM A-D) 2 mg capsule 1 tablet every 4 hours as needed 0 05/01/2023 metoprolol succinate XL (TOPROL XL) 50 mg extended release tablet Take one tablet by mouth daily. 90 tablet 0 05/01/2023 tamsulosin (FLOMAX) 0.4 mg capsule Take one capsule by mouth daily after breakfast. Do not crush, chew or open capsules. Take 30 minutes following the same meal each day. 90 capsule 0 05/01/2023 valACYclovir (VALTREX) 1 gram tabletIndications:HSV Take one tablet by mouth twice daily for 8 days. Indications: HSV 0 05/01/2023 05/09/2023 documented as of this encounter Ordered Prescriptions Prescription Sig Dispensed Refills Start Date End Da te loperamide (IMODIUM A-D) 2 mg capsule 1 tablet every 4 hours as needed 0 05/01/2023 tamsulosin (FLOMAX) 0.4 mg capsule Take one capsule by mouth daily after breakfast. Do not crush, chew or open capsules. Take 30 minutes following the same meal each day. 90 capsule 0 05/01/2023 metoprolol succinate XL (TOPROL XL) 50 mg extended release tablet Take one tablet by mouth daily. 90 tablet 0 05/01/2023 lidocaine hcl viscous (LIDOCAINE VISCOUS) 2 % solution Swish and Spit 5 mL by mouth as directed four times daily as needed. 100 mL 0 05/01/2023 hyoscyamine (ANASPAZ) 0.125 mg rapid dissolve tablet Place one tablet under tongue every 4 hours as needed. 180 tablet 0 05/01/2023 clopiDOGreL (PLAVIX) 75 mg tablet Take one tablet by mouth daily. 90 tablet 0 05/01/2023 atorvastatin (LIPITOR) 40 mg tablet Take one tablet by mouth daily. 90 tablet 0 05/01/2023 apixaban (ELIQUIS) 5 mg tablet Take one tablet by mouth twice daily. 180 tablet 0 05/01/2023 valACYclovir (VALTREX) 1 gram tabletIndications:HSV Take one tablet by mouth twice daily for 8 days. Indications: HSV 0 05/01/2023 05/09/2023 documented in this encounter Discharge Disposition Disposition Code Departure Means Destination Long Term Facility Wheelchair documented in this encounter Progress Notes * Hussain Slaughter MD - 05/01/2023 1:57 PM CDT Name: Silke Hansen : 1945 Age: 77 y.o. Admission Date: 04/22/2023 LOS: 9 days Date of Service: 05/01/2023 Day of Discharge Note Day of discharge progress note for Silke Hansen Chart data reviewed including medications, consultation notes, lab, vitals, imaging. Patient was seen and examined with pertinent information listed below. Subjective: Patient had no acute overnight events. She is feeling well this morning. Still has ongoing lip and mouth pain but she feels like it is slowly improving. Still not tolerating solid foods all that well. She continues to deny any light-headedness, chest pain, dyspnea, cough, palpitations, racing heart. Exam: General appearance: alert, well-developed, well-nourished, cooperative, no distress and mildly obese Head: Normocephalic, without obvious abnormality, atraumatic Eyes: negative findings: conjunctivae and sclerae normal and corneas clear Mouth: Lips with crusted lesions, oropharynx with small vesicular lesions Neck: supple, symmetrical, trachea midline and no JVD Lungs: clear to auscultation bilaterally Heart: regular rate and rhythm, S1, S2 normal, no murmur, click, rub or gallop Abdomen: soft, non-tender. Bowel sounds normal. No masses, no organomegaly Extremities: no ulcers, gangrene or trophic changes, RLE with trace pitting edema, LLE with 1+ pitting edema Neurologic: A&Ox4, strength exam grossly normal Peripheral pulses: 2+ and symmetric Skin: Skin color, texture, turgor normal. No rashes or lesions Discharge plans and pertinent follow up items after discharge: Patient stable for discharge. She will take a dose of PO Levaquin today to complete a 10 day course overall of antibiotics for her UTI/bacteremia. She will discharge with a benson in place. Urology has arranged for follow up at the one month samantha for benson exchange. Separately she will need definitive treatment of her ureteral stones in the next 2 months. Urology requesting Cardiology risk stratification prior to this procedure givenher recent cardiac issues. She will follow up with Cardiology in the next 4-6 weeks for follow for her heart failure and NSTEMI. She will continue on her Apixaban (for Afib) and Plavix (for NSTEMI treatment) until at least that follow up appointment. She will continue her newly started Toprol XL 50mg daily on discharge. Her BP does not seem high enough to support Losartan but hopefully can be started on follow up with Cardiology. She will continue Valtrex on discharge for oral HSV infection tocomplete 10 days of therapy. Principal Problem: Septic shock (HCC) Active Problems: Encephalopathy Acute hypoxemic respiratory failure (HCC) Pleural effusion Tachycardia Pneumonia UTI (urinary tract infection) Bacteremia Atrial fibrillation with RVR (HCC) Systolic dysfunction Patient feels comfortable with plans for discharge. All questions were answered. Discharge discussion, including follow up/discharge instructions, occurred with patient [id number]. Hussain Slaughter MD 05/01/2023 Discharge Planning: greater than 30 minutes spent in counseling pt, coordinating discharge care, placing discharge orders and complete discharge summary. * Hussain Slaughter MD - 04/30/2023 9:22 PM CDT General Progress Note Name: Silke Hansen : 1945 Age: 77 y.o. Admission Date: 04/22/2023 LOS: 6 days Date of Service: 04/28/2023 Assessment/Plan: Principal Problem: Septic shock (HCC) Active Problems: Encephalopathy Acute hypoxemic respiratory failure (HCC) Pleural effusion Tachycardia Pneumonia UTI (urinary tract infection) Bacteremia Atrial fibrillation with RVR ([facility]) Systolic dysfunction Silke Hansen is a 77 y.o. female with PMH of HTN who presented to OSH on 04/20 w/ c/o rlq pain and chills for 1 day. Found to be in septic shock w/ a R ureter obstructive stone. [facility] Upon [facility] to she was off pressors but increasingly altered w/ increased O2 requirements. Taken to OR early 04/23 for cystoscopy w/ right ureteral stent placement and returned to MICU intubated. Developed shock after return from OR and pressor restarted.Extubated 04/23 and now off pressors. Developed Afib w/ RVR on 04/23. Cardiology consulted and rate controlled w/ Metoprolol. Corpak still in place but has started eating so will likely be able to remove soon. PT/OT currently recommending inpt. Transferred out of the ICU 04/26. Acute Hypoxic Respiratory Failure - resolved Bilateral Pleural Effusions DDx pneumonia vs pleural effusions - No baseline oxygen use - On admit to MICU requiring 8L NC - CXR: RLL infiltrates and bilateral pleural effusions - NT-pro-BNP 11,158 - Intubated for OR, extubated 04/23 - CXR 04/28 with improvement in edema and pleural effusions Plan - Patient maintaining spO2 goal >92% Septic Shock (resolved) 2/2 urinary source UTI Bacteremia Bladder stones, right ureteral stone Lactic Acidosis (resolved) - Likely 2/2 UTI - OSH echo 04/21: EF 50%, Paradoxical septal motion noted, AV leaflet thickening and trivial regurg.MV trivial regurg. TV w/ mild regurg. PV trivial regurg. PASP 30-35mmHg - Outside blood cultures (2/2) and urine culture grew Klebsiella oxytoca (one blood culture grew two separate isolates of K oxytoca) with the same sensitivities (R to ampicillin, S to everything else(including Bactrim, cephalosporins, Zosyn, Cipro)) - Lactate peaked at 5.98 (at OSH) - Trop peaked at 2610 - Developed shock after return from OR; levo off since extubation 04/23 -04/23: Right ureteral stent. Noted poor bladder emptying Plan -Transition to PO Levaquin to complete 10 days total of therapy (last dose 05/01) -Urology now signed off. Maintain benson through discharge. Will need benson exchange 1 month from placement (~ 05/21) with Urology. Will also follow up with Dr. Lindquist for mgmt of her cystocele and urodynamics. She will follow up with Dr Calderon for treatment of her ureteral stone within the next 2months. Urology requesting Cardiology risk assessment prior to this. -Anaspaz, Flomax NSTEMI Hx HTN - Trop peaked at 2610. Initially suspected that it was demand in the setting of septic shock. Cardiac PET CT showed "Predominantly fixed defect is identified involving the mid septal wall for left ventricle extending to the anterior and inferior wall. On quantification, the area of reversibility isapproximately 4-8% of the left ventricular myocardium (12 mL left ventricular myocardial volume). Findings are compatible with myocardial infarction with mild ning-infarct ischemia." Plan: - Cardiology offered patient cardiac cath however she declined. Recommend she follow up as outpatient within the next few weeks to a couple of months - Start Plavix -Continue to hold [employer] Losartan. Resume as able. Afib w/ RVR (new onset) Acute on chronic systolic heart failure LBBB Atrial tachycardia - EKG on arrival to : ST w/ LBBB - Went into afib w/ RVR early 04/24, rates into 130s --> given 5mg metop w/ slight improvement in rate, but remained in fib - Diltiazem gtt initiated for rate control; weaned off 04/24 at ~2300 - TTE 04/24: LVEF 30-35% (while in Afib), mildly reduced RV function, normal valve morphology - Stress test results as mentioned above Plan - Transitioned metoprolol tartrate to Toprol XL 50 mg daily - Continue Eliquis - Ischemia workup (cath) as outpatient Diarrhea - Cleared for regular diet, but Corpakplaced 04/24w/ drowsiness - Cdiff04/25:negative Plan - PRN imodium Oral HSV - Lips and oral lesions appear c/w HSV infection Plan - Valtrex 1 g BID x 10 days Acute toxic/metabolic encephalopathy - resolved - Prior to intubation, was A&Ox4 but intermittently confused - thought 2/2 infection vs delirium - Returned from OR intubated/sedated, now extubated and off sedationsince 04/23 - Ammonia 46, VBG CO2 of 53 - On exam: oriented x 4 but falls asleep during conversation. Forgetful during conversations concerning for not fully improved Plan - Delirium precautions - Removed Corepak 04/28 Wound: Wound Documentation Wound: Wounds Pressure injury Left;Right Buttocks (Active) 04/24/23 1500 Wound Type: Pressure injury Orientation: Left;Right Location: Buttocks Wound Location Comments: Is the Wound Open or Closed: Initial Wound Site Closure: Initial Dressing Placed: Pressure Injury Stages: Stage 1 Pressure Injury Present Within 24 Hours of Hosptial Admission: Yes If This Pressure Injury Is Suspected to Be Device Related, Please Select the Device:: Wound Assessment Non-blanchable;Red 04/30/232031 Ning-wound Assessment Intact 04/30/232031 Wound Drainage Amount None 04/30/232031 Wound Dressing Status None/open to air 04/30/232031 Wound Care Treatment or ointment applied 04/26/23 0800 Wound Dressing and/or Treatment A & D ointment 04/30/232031 Number of days: 6 FEN: No IVF, replace lytes PRN, regular diet Ppx: Lovenox Code status: FULL Dispo: Continue inpatient admission, stable for discharge (awaiting placement) Total Time Today was 55 minutes in the following activities: Preparing to see the patient, Obtaining and/or reviewing separately obtained history, Performing a medically appropriate examination and/or evaluation, Counseling and educating the patient/family/caregiver, Ordering medications, tests, orprocedures, Referring and communication with other health transition of care specialist (when not separately reported), Documenting clinical information in the electronic or other health record and Care coordination (not separately reported). Discussed with Cardiology and Urology. Hussain Slaughter MD Internal Medicine, Hospitalist Voalte is the preferred method of communication. Please use the [facility] Call for all patient-related communications. Personal Voaltes and pagers are not answered at all hours. Subjective Silke Hansen is a 77 y.o. female. Patient had no acute overnight events. Patient feeling well this morning. Continues to have lip pain that is slowly improving. Also has mouth pain. Continues to deny any odynophagia. Her PO intake is slowly improving, having little issues with fluids/shakes. Shecontinues to deny any lightheadedness, dizziness, vision changes, chest pain, dyspnea, palpitations, racing heart. We had a long conversation about her disposition as she did at one point express interest in going home. After further discussion she is okay with pursuing SNF for rehab. Medications Scheduled Meds:apixaban (ELIQUIS) tablet 5 mg, 5 mg, Oral, BID atorvastatin (LIPITOR) tablet 40 mg, 40 mg, Oral, QDAY clopiDOGreL (PLAVIX) tablet 75 mg, 75 mg, Oral, QDAY insulin aspart (U-100) (NOVOLOG FLEXPEN U-100 INSULIN) injection PEN 0-6 Units, 0-6 Units, Subcutaneous, Q4H levoFLOXacin (LEVAQUIN) tablet 750 mg, 750 mg, Oral, Q24H* [Held by Provider] losartan (COZAAR) tablet 25 mg, 25 mg, Oral, QDAY metoprolol succinate XL (TOPROL XL) tablet 50 mg, 50 mg, Oral, QDAY tamsulosin (FLOMAX) capsule 0.4 mg, 0.4 mg, Oral, QDAY after breakfast valACYclovir (VALTREX) tablet 1,000 mg, 1,000 mg, Oral, BID Continuous Infusions: PRN and Respiratory Meds:acetaminophen Q4H PRN, albuterol sulfate PRN, albuterol-ipratropium Q4H PRN, dextrose 50% (D50) IV PRN, qsgzys-copqaexxv-nan,al-simeth Q3H PRN, hyoscyamine Q4H PRN, loperamide (IMODIUM) oral solution PRN, nitroglycerin Q5 MIN PRN, phenoL PRN Review of Systems: Positive for lip lesions/pain. Negative for fevers, chills, MEYERS, vision changes, light-headedness, dizziness, chest pain, dyspnea, cough, abdominal pain, nausea, vomiting, constipation, diarrhea, dysuria, skin changes. Objective: Vital Signs: Last Filed Vital Signs: 24 Hour Range BP: 124/47 (04/30 2028) Temp: 36.8 C (98.2 F) (04/30 2028) Pulse: 87 (04/30 2028) Respirations: 17 PER MINUTE (04/30 2028) SpO2: 93 % (04/30 2028) O2 Device: None (Room air) (04/30 2028) BP: (106-124)/(43-50) Temp: [36.3 C (97.4 F)-37 C (98.6 F)] Pulse: [81-92] Respirations: [16 PER MINUTE-18 PER MINUTE] SpO2: [93 %-97 %] O2 Device: None (Room air) Vitals: 04/26/23 0414 04/27/23 0500 04/28/23 0432 Weight: 77.9 kg (171 lb 11.8 oz) 79.9 kg (176 lb 2.4 oz) 79.6 kg (175 lb 7.8 oz) Intake/Output Summary: (Last 24 hours) Intake/Output Summary (Last 24 hours) at 04/30/20232121 Last data filed at 04/30/2023 1746 Gross per 24 hour Intake 1760 ml Output 1700 ml Net 60 ml Stool Occurrence: 1 Physical Exam General appearance: alert, well-developed, well-nourished, cooperative, no distress and mildly obese Head: Normocephalic, without obvious abnormality, atraumatic Eyes: negative findings: conjunctivae and sclerae normal and corneas clear Mouth: Lips with crusted lesions, oropharynx with small vesicular lesions Neck: supple, symmetrical, trachea midline and no JVD Lungs: clear to auscultation bilaterally Heart: regular rate and rhythm, S1, S2 normal, no murmur, click, rub or gallop Abdomen: soft, non-tender. Bowel sounds normal. No masses, no organomegaly Extremities: no ulcers, gangrene or trophic changes, RLE with trace pitting edema, LLE with 1+ pitting edema Neurologic: A&Ox4, strength exam grossly normal Peripheral pulses: 2+ and symmetric Skin: Skin color, texture, turgor normal. No rashes or lesions Lab Review Pertinent labs reviewed Point of Care Testing (Last 24 hours) Glucose: (!) 116 (04/30/23 0455) POC Glucose (Download): (!) 107 (04/30/23 1702) Radiology and other Diagnostics Review: Pertinent radiology reviewed. Hussain Slaughter MD * Hussain Colvin MD - 04/30/2023 5:02 PM CDT Brief Urology Note Please maintain benson through discharge. Dr. Lindquist will follow patient up for her cystocele, urodynamics, and benson exchanges. He is referring to Dr. Calderon for treatment of her ureteral stone (laser lithotripsy, ~90min, general anesthesia, in the next [address]). She will need cardiology clearance prior to any urologic intervention, Urology has communicated with [facility]. Hussain Colvin MD D/w: Ameena * Maci De Paz RT - 04/30/2023 2:12 PM CDT RT Adult Assessment Note NAME:Silke Hansen :1945 AGE: 77 y.o. ADMISSION DATE: 04/22/2023 DAYS ADMITTED: LOS: 8 days RT Treatment Plan: Protocol Plan: Procedures PAP: Place a nursing order for "IS Q1h While Awake" for any of Lung Expansion indicators Additional Comments: Impressions of the patient: Patient resting in bed. No visible signs of respiratory distress noted st this time. Intervention(s)/outcome(s): RT Eval Patient education that was completed: N/A Recommendations to the care team: None at this time. Vital Signs: Pulse: 88 RR: 16 PER MINUTE SpO2: 93 % O2 Device: None (Room air) Breath Sounds: Fine crackles Respiratory Effort: Unlabored * Kenya Lisa PA-C - 04/30/2023 1:33 PM CDT Heart Failure Progress Note NAME:Silke Hansen :1945 AGE: 77 y.o. ADMISSION DATE: 04/22/2023 DAYS ADMITTED: LOS: 8 days Principal Problem: Septic shock (HCC) Active Problems: Encephalopathy Acute hypoxemic respiratory failure (HCC) Pleural effusion Tachycardia Pneumonia UTI (urinary tract infection) Bacteremia Atrial fibrillation with RVR (HCC) Systolic dysfunction 77F HTN, and obesity. She was transferred to [facility] on 04/22/23 to MICU for urosepsis. She initially presented to an urgent care clinic in [place] on 04/20/23 with complaints of right lower quadrant pain and chills x1 day. She was prescribed Bactrim and Zofran. However, patient did not fill these prescriptions. Her clinical status deteriorated the same day and she was taken to [facility] on04/20/23 and was found to be tachycardic with heart rate in 120s. She was febrile with temp of 104Fwith hypotension. Her lactate was 5.98. She was received 2 L lactated ringer and was started on broad-spectrum antibiotics. She required pressor support with nor epi and vasopressin for septic shock due to urosepsis and pneumonia. Chest x-ray revealed right lower lobe infiltrates and effusion.A CT A/P revealed obstructive stone in her right ureter. Due to lack of urology service patient was transferred to [facility]. On arrival to [facility] she was hemodynamically stable and off pressors. She was found to have intermittent acute mental status changes and increase oxygen requirement. She was emergently taken to OR on 04/23/23 and underwent cystoscopy with right ureteral splint placement. She returned back to MICU intubated. Her course for further complicated by development of shock and required pressor support. Overall she was felt to have septic shock due to urological source. OSH blood cultures grew Klebsiella oxytoca. She was eventually extubated on 04/23/23 and was weaned off pressors. She required NG tube placement. She developed A-fib RVR on 04/23/23. ECG with LBBB. Cardiology was consulted. She was eventually discharged to floor on 04/26/23. NG tube was discontinued on 04/28/23. Echocardiogram revealed decline in EF to 30 to 35%. This was in the setting of A fib RVR. Normal LVIDD and LVDVI. High-sensitivity random troponin I peaked to 2610. And trended down to 704. She underwent PET/CT MPI on 04/29/23 which showed fixed defect. It was a intermediate risk study. EF has improved on PET/CT MPI to 50%. Recommendations: Today: 1. Abnormal PET CT MPI with mostly fixed defect, however, given intermediate risk study, decline inEF, troponin elevation on admit and LBBB of unknown chronicity- we did discuss proceeding with [facility] +/- PCI. Patient wishes to recover from this hospitalization and will consider this in the outpatient setting. She is currently not having any anginal symptoms. We will treated as non-STEMI. She was initiated on Clopidogrel 75 mg po daily for NSTEMI.tolerating well. Will defer ASA for now since she will need DOAC for A fib. 2. Patient is net -2.8L since admit. Appears to be compensated from HF standpoint. 3. Continue Apixaban 5 mg po bid. Started on 04/29/23. Tolerating well. 4. GDMIT will be limited given marginal BP. Continue losartan 25 Mg p.o. daily. Metoprolol Tartrate transited to Metoprolol XL 50 mg po daily on 04/29. Consider initiatoin of MRA ie Spironolactone in the outpatient setting. She is unlikely a candidate for SGLT2i given history of frequent UTIs and was treated for urosepsis this admit. 5. Recommend repeat echocardiogram in 3 months to reevaluate LVEF after maximizing GDMT.. If no improvement in EF then would recommend referral to EP team for recommendations regarding ICD implant 6. Off IV antibiotics on 04/30/23. 7. Benson remains in place. 8. LDL 81 mg po daily. Started on Atorvastatin 40 mg po daily on 04/29/23 9. Appreciate Gas Dispenser and Cardiac rehab input. Ongoin. BMP once a day/BID on diuretic drip. Magnesium level daily. Keep Potassium greater than 4.0 andMagnesium greater than 2.0. 2. 2000mg sodium dietary restriction. 3. Fluid Restriction:1.5 4. Strict I/O. Goal output: net neg evenL/24 hour 5. Daily standing scale weight. Goal Dry Weight: suspect around 171-176# 6. Follow up appointment with a member of the HF team: Primary team, for Heart Failure Clinic post hospital 7 day follow up visit, please place [facility] Appointment Request order set for "Cardiology: Heart Failure" appointment request within 24-48 hours of discharge. (Please do not place order any earlier in effort to reduce possible need for cancellation and rescheduling of visit). Discussed with Cardiology attending Dr. Barrett. Discussed with Dr. Slaughter with Primary team. Kenya Lisa PA-C Department of Cardiovascular Medicine [facility] Available on Voalte/AMS/Pager [phone]: [address] segment Elevation Myocardial Infarction Presumed CAD based on Abnormal stress test Left bundle branch block-unknown chronicity Guideline-Based Acute Myocardial Infarction Therapies P2y12 Antagonist: Yes ASA: No: Other (will be on Apixaban as well. avoiding "triple therapy" to reduce risk of bleeding) Beta Rosmery: Yes ALONZO/ARB/ARNI: (If EF <40%) No: Hypotension High Intensity Statin (Atorvastatin 40-80 mg or Rosuvastatin 20-40 mg): Yes Evaluation of Left Ventricular EF this admission: Yes: EF 30-35% on echo. 50% on PET CT MPI% - Is EF < 40%: No Cardiac Rehab Consult - Outpatient Cardiac Rehab: Yes Acute systolic HFrEF, EF: 30-35% NYHA Class III, ACC Stage C ICM vs. NICM in the setting of A fib RVR and septic shock Major Complications or Comorbidities (HALFWAY): Presumed CAD in the setting of abnormal stress test, a fib RVR, AT, Morbid obesity, untreated/undiagnosed MANISH She presents with signs of euvolemia with left ventricular failure without signs of low flow state. -NT pro BNP: 11 158 on 04/22/2023. Repeat on 04/28/2023 was 7917. -CXR 04/28/2023: Improved pulmonary edema. Decreased small layering pleural effusions. Adjacent basal opacities presumably reflect atelectasis. -Echo 04/24/23: Difficult to accurately assess the LV ejection fraction due to underlying atrial fibrillation and uncontrolled heart rates. Abnormal septal motion due to conduction abnormality. TheLV EF is currently estimated at 30 to 35%. Mildly reduced RV function Atria normal in size Normal valve morphology Mild mitral regurgitation seen Mild to moderate TR noted Elevated central venous pressure Mildly elevated PA systolic pressure Trivial AI is present Consider reassessing cardiac function when rhythm is regular or the rates are better controlled There is no prior study available for comparison AdmissionWeight: 81.1 kg (178 lb 12.7 oz) Most recent (inpatient): Vitals: 04/26/23 0414 04/27/23 0500 04/28/23 0432 Weight: 77.9 kg (171 lb 11.8 oz) 79.9 kg (176 lb 2.4 oz) 79.6 kg (175 lb 7.8 oz) Wt Readings from Last 10 Encounters: 04/28/23 79.6 kg (175 lb 7.8 oz) Intake/Output Summary (Last 24 hours) at 04/30/2023 1338 Last data filed at 04/30/2023 1000 Gross per 24 hour Intake 1520 ml Output 800 ml Net 720 ml GDMT MOD[employer] Changes BB 04/24 metoprolol 5 Mg IV x2 04/24 metoprolol tartrate 50 Mg p.o. twice daily 04/29/23 Metoprolol Succinate 50 mg po daily ACEI/ARB/ARNI Losartan 50 mg po daily Aldosterone Antagonist Hydralazine/Nitrate No (N/A - patient not Black/) Ivabradine NA HRMT No (No prior history of HF, Not receiving optimal medical therapy for at least 3 months) SGLT2-i Recurrent UTI Recent ureteral stent for urosepsis Cardiac Rehab Requested on 04/29/23 Anticoagulation for Afib/flutter Currently on therapeutic Lovenox 04/29/2023 evening started on apixaban 5 Mg p.o. twice daily Diuretic Therapy Prior to admission dose none Given on admission 04/22 lasix 20 mg IV X 1 04/24-04/25 13 Lasix 40 Mg IV x1 04/26 Lasix 40 Mg IV x 2 Daily Dosing none New onset Paroxysmal Atrial Fibrillation with rapid Ventricular Response Atrial Tachycardia [id number] is elevated ~ 5 Presented in sinus tach rhythm with left bundle branch block Went into A-fib RVR early on 04/24/23 with rates up to 130s Received 5 Mg of IV metoprolol Required diltiazem drip which was weaned off on 04/24 at 2300 Eventually started on metoprolol titrate 50 Mg p.o. twice daily Intermittent episodes of what appears to be narrow complex fairly regular tachycardia with sudden onset/offset most likely atrial tachycardia. Initiated on therapeutic enoxaparin on 04/24/23 Switch to apixaban on 04/29/23 evening Acute hypoxic respiratory failure Bilateral pleural effusion Septic shock-resolve UTI due to nephrolithiasis Acute toxic/metabolic encephalopathy-resolving No [employer] O2 requirements Required intubation in the OR. 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 daily. She was taking 50 Mg p.o. daily. BP has been marginal at times. Plan as above. Elevated BMI: Body mass index is 31.09 kg/m. Weight loss, Cardiac Healthy diet, and exercise whenpatient can tolerate. Reason for Consultation: Evaluation and recommendations re: heart failure History of Present Illness: Resting in bed. Feeling very well. She has been ambulating with PT. Denies chest pain, shortness of breath, lightheadedness, dizziness, near fainting, palpitations, abd pain, back pain or bleeding issues. Review of Systems A 14 point review of systems was ascertained and is otherwise negative and/or normal except for: asabove Medical History: Diagnosis Date Hypertension Surgical History: Procedure Laterality Date CYSTOURETHROSCOPY WITH INDWELLING URETERAL STENT INSERTION Right 04/23/2023 Performed by Jerald Lindquist MD at [facility] OR CYSTOURETHROSCOPY WITH URETERAL CATHETERIZATION WITH/ WITHOUT IRRIGATION/ INSTILLATION/ URETEROPYELOGRAPHY Right 04/23/2023 Performed by Jerald Lindquist MD at [facility] OR RETROGRADE UROGRAPHY WITH/ WITHOUT KUB Right 04/23/2023 Performed by Jerald Lindquist MD at [facility] OR No family history on file. Social History Socioeconomic History Marital status: Tobacco Use Smoking status: Never Smokeless tobacco: Never Substance and Sexual Activity Alcohol use: Never Drug use: Never Objective: Allergies: Allergies Allergen Reactions Codeine UNKNOWN Reported in OSH records Medications: Scheduled Meds:apixaban (ELIQUIS) tablet 5 mg, 5 mg, Oral, BID atorvastatin (LIPITOR) tablet 40 mg, 40 mg, Oral, QDAY clopiDOGreL (PLAVIX) tablet 75 mg, 75 mg, Oral, QDAY insulin aspart (U-100) (NOVOLOG FLEXPEN U-100 INSULIN) injection PEN 0-6 Units, 0-6 Units, Subcutaneous, Q4H levoFLOXacin (LEVAQUIN) tablet 750 mg, 750 mg, Oral, Q24H* [Held by Provider] losartan (COZAAR) tablet 25 mg, 25 mg, Oral, QDAY metoprolol succinate XL (TOPROL XL) tablet 50 mg, 50 mg, Oral, QDAY tamsulosin (FLOMAX) capsule 0.4 mg, 0.4 mg, Oral, QDAY after breakfast valACYclovir (VALTREX) tablet 1,000 mg, 1,000 mg, Oral, BID Continuous Infusions: [Held by Provider] Diet Critical Care Enteral Feeding Volume Based Infusion Stopped (04/26/23 6095) PRN and Respiratory Meds:acetaminophen Q4H PRN, albuterol sulfate PRN, albuterol-ipratropium Q4H PRN, dextrose 50% (D50) IV PRN, quseiv-ufffztcqp-vgx,al-simeth Q3H PRN, hyoscyamine Q4H PRN, loperamide (IMODIUM) oral solution PRN, nitroglycerin Q5 MIN PRN, pancrelipase 20,880 Units/sodium bicarbonate 650 mg (KU CLOG DESTROYER) PRN (Website Designer from Rx), phenoL PRN Vital Signs: Last Filed Vital Signs: 24 Hour Range BP: 108/45 (04/30 1112) Temp: 36.7 C (98.1 F) (04/30 1112) Pulse: 92 (04/30 1112) Respirations: 16 PER MINUTE (04/30 1112) SpO2: 95 % (04/30 1112) O2 Device: None (Room air) (04/30 1112) BP: (106-121)/(45-59) Temp: [36.3 C (97.4 F)-37.2 C (98.9 F)] Pulse: [81-98] Respirations: [16 PER MINUTE-18 PER MINUTE] SpO2: [93 %-97 %] O2 Device: None (Room air) Physical Exam: General Appearance: no distress, obese, Lips with crusted lesions, discoloration Skin: warm and dry Lips & Oral Mucosa: no pallor or cyanosis Digits and Nails: normal color, smooth symmetric nails and digits Eyes: conjunctivae and lids normal Neck Veins: unable to accurately assess due to body habitus, however, does not appear to be distended. Auscultation/Percussion: breathing comfortably, lungs clear to auscultation, no rales or rhonchi, no wheezing Cardiac Auscultation: Regular rhythm, S1, S2, no S3 or S4, no audible murmur Pedal Pulses: pulses 2+, symmetric Lower Extremity Edema: trace LE Edema, warm extremities Abdominal Exam: soft, non-tender, bowel sounds normal, no hepatomegaly Orientation: clear historian, good insight Laboratory Review: CBC w/Diff Lab Results Component Value Date/Time WBC 12.1 (H) 04/30/2023 04:55 AM RBC 3.67 (L) 04/30/2023 04:55 AM HGB 10.7 (L) 04/30/2023 04:55 AM HCT 31.9 (L) 04/30/2023 04:55 AM MCV 87.0 04/30/2023 04:55 AM MCH 29.1 04/30/2023 04:55 AM MCHC 33.4 04/30/2023 04:55 AM RDW 14.1 04/30/2023 04:55 AM PLTCT 313 04/30/2023 04:55 AM MPV 8.1 04/30/2023 04:55 AM Lab Results Component Value Date/Time NEUT 77 04/30/2023 04:55 AM ANC 9.15 (H) 04/30/2023 04:55 AM LYMA 13 (L) 04/30/2023 04:55 AM ALC 1.61 04/30/2023 04:55 AM BERNADINE 7 04/30/2023 04:55 AM AMC 0.87 (H) 04/30/2023 04:55 AM EOSA 3 04/30/2023 04:55 AM AEC 0.38 04/30/2023 04:55 AM BASA 0 04/30/2023 04:55 AM ABC 0.05 04/30/2023 04:55 AM Chemistry Lab Results Component Value Date/Time NA 140 04/30/2023 04:55 AM K 3.7 04/30/2023 04:55 AM CL 108 04/30/2023 04:55 AM CO2 25 04/30/2023 04:55 AM GAP 7 04/30/2023 04:55 AM BUN 16 04/30/2023 04:55 AM CR 0.57 04/30/2023 04:55 AM GLU 116 (H) 04/30/2023 04:55 AM MG 2.1 04/30/2023 04:55 AM Lab Results Component Value Date/Time CA 8.0 (L) 04/30/2023 04:55 AM PO4 3.1 04/30/2023 04:55 AM ALBUMIN 2.8 (L) 04/30/2023 04:55 AM TOTPROT 5.5 (L) 04/30/2023 04:55 AM ALKPHOS 28 04/30/2023 04:55 AM AST 29 04/30/2023 04:55 AM ALT 33 04/30/2023 04:55 AM TOTBILI 0.6 04/30/2023 04:55 AM Renal Function Lab Results Component Value Date/Time NA 140 04/30/2023 04:55 AM K 3.7 04/30/2023 04:55 AM CL 108 04/30/2023 04:55 AM CO2 25 04/30/2023 04:55 AM GAP 7 04/30/2023 04:55 AM BUN 16 04/30/2023 04:55 AM BUN 18 04/29/2023 04:53 AM BUN 19 04/28/2023 05:44 AM Lab Results Component Value Date/Time CR 0.57 04/30/2023 04:55 AM CR 0.67 04/29/2023 04:53 AM CR 0.58 04/28/2023 05:44 AM GLU 116 (H) 04/30/2023 04:55 AM CA 8.0 (L) 04/30/2023 04:55 AM PO4 3.1 04/30/2023 04:55 AM ALBUMIN 2.8 (L) 04/30/2023 04:55 AM Lipid Profile INR Lab Results Component Value Date CHOL 123 04/29/2023 TRIG 116 04/29/2023 HDL 26 (L) 04/29/2023 LDL 81 04/29/2023 VLDL 23 04/29/2023 NONHDLCHOL 97 04/29/2023 Lab Results Component Value Date INR 1.4 (H) 04/22/2023 Tele: NSR, BBB, short burst of narrow complex fairly regular tachycardia with sudden onset offset likely atrial tachycardia Echocardiogram Details: Echo Results (Last 3 results in the past 3 years) Echo EF LVIDD LA Size IVS LVPW Rest PAP -- (04/24/23) 3.60 (04/24/23) 3.70 (04/24/23) 1.10 (04/24/23) 1.00 (04/24/23) 44 Associated attestation - Derrek Barrett MD - 04/30/2023 6:24 PM CDT Cardiology Staff Physician Attestation I have personally interviewed and examined the patient. I have reviewed the medical record, labs, pertinent imaging / laboratory studies and all pertinent medical documentation including the history, physical, and impression. I agree with the jointly formulated treatment plan as outlined by the Cardiology KELSEY, Kenya Lisa. Patient doing well this morning from a cardiovascular perspective. I met her and son as well. Their questions were answered to their satisfaction. No change in medical therapy from our standpoint today. As previously discussed, we would like to pursue coronary angiography in the future. I do not think this is time sensitive. Patient wishes to recover from her current hospitalizationbefore proceeding. We will therefore see her back in the office in about 6 to 8 weeks to discuss.She is stable for discharge from our standpoint. We will sign off at this time. Cardiac medications at discharge should include apixaban 5 mg twice daily, clopidogrel 75 mg once daily, atorvastatin 40 mg nightly, losartan 25 mg daily, and metoprolol succinate 50 mg daily. Patient's questions were answered and they agreed with the above plan. Thank you for the opportunity to participate in the care of your patient. Please call with questions or concerns. Derrek Barrett MD, [facility] Department of Cardiovascular Medicine [facility] * Zeynep Goddard RN - 04/30/2023 9:44 AM CDT CARDIOPULMONARY REHABILITATION INPATIENT ASSESSMENT Cardiac Rehabilitation Staff: Zeynep Goddard RN Discharge Date: Demographics Pre-admit Dx: Date of Admission: 04/22/2023 Room: [place] [id number] : 1945 Insurance: Primary: [employer] Medicare Secondary: none Address: [address] [address] Patient (home) Marital Status: Occupation: Unknown ED Contact: Brennan Hansen (Spouse) ED Phone #: [phone] CTS: ABIDA Shank Cutter: Nena Cardiac Procedures and Events 04/30/23 (NSTEMI) Risk Factors Risk Factors: Hypertension, Obesity BP: 106/46 Height: 160 cm (5' 3") Weight: 79.6 kg (175 lb 7.8 oz) BMI (Calculated): 31.35 Medical History has a past medical history of Hypertension. Labs Cholesterol Date Value Ref Range Status 04/29/2023 123 <200 MG/DL Final Triglycerides Date Value Ref Range Status 04/29/2023 116 <150 MG/DL Final HDL Date Value Ref Range Status 04/29/2023 26 (L) >40 MG/DL Final LDL Date Value Ref Range Status 04/29/2023 81 <100 mg/dL Final Hemoglobin A1C Date Value Ref Range Status 04/26/2023 6.4 (H) 4.0 - 5.7 % Final Comment: The ADA recommends that most patients with type 1 and type 2 diabetes maintain an A1c level <7%. Heart Resource Manual Given: 04/30/23 Teaching Completed: 04/30/23 Outpatient Cardiopulmonary Rehabilitation Outpatient [facility]: Yes Referral Faxed to: [facility]- [facility] [phone] Date Faxed: 04/30/23 Location: [place], [place]- [facility] [phone] If , Sent to Staff: Zeynep Goddard RN 04/30/2023 * Sun Rodgers OT - 04/30/2023 9:38 AM CDT OCCUPATIONAL THERAPY PROGRESS NOTE Name: Silke Hansen : 1945 Age: 77 y.o. Admission Date: 04/22/2023 LOS: 8 days Date of Service: 04/30/2023 Mobility Patient Turn/Position: Chair Progressive Mobility Level: Stand Distance Walked (feet): 75 ft (x 2) Level of Assistance: Assist X1 Assistive Device: Walker Activity Limited By: Fatigue (Patient recently completed session with physical therapy) Subjective Pertinent Dx per Physician: 77 y.o. female with PMH of HTN who presented to OSH on 04/20 w/ c/o rlqpain and chills for 1 day. Found to be in septic shock w/ a R ureter obstructive stone. Transferred to for further care. Upon arrival to she was off pressors but increasingly altered w/ increased O2 requirements. Taken to OR early 04/23 for cystoscopy w/ right ureteral stent placement and returned to MICU intubated. Developed shock after return from OR and pressor restarted. Extubated 04/23 and now off pressors. Developed Afib w/ RVR on 04/23. Cardiology consulted and rate controlled w/ Metoprolol. Transferred out of the ICU 04/26. Precautions: Standard;Falls Pain / Complaints: Patient has no c/o pain Objective Psychosocial Status: Willing and Cooperative to Participate Persons Present: RehabTechnician;Nursing Staff;Provider;Occupational Therapist (OT at end of session) Home Living Type of Home: House Home Layout: One Level Bathroom Shower / Tub: Tub/Shower Unit Bathroom Toilet: Standard Comment: Ramped entrance. 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 Enjoys going to [employer] and working on restoring furniture. She is typically extremely active and "on the go." ADL's Where Assessed: Edge of Bed Grooming Assist: Stand By Assist Grooming Deficits: Brushing Hair Toileting Assist: Total Assist Toileting Deficits: (Indwelling urinary catheter) ADL Mobility Bed Mobility: Sit to Supine: Standby assist Transfer Type: Sit to/from stand Transfer: Assistance Level: To/from;Bed;Minimal assist Transfer: Assistive Device: Roller walker End of Activity Status: In bed;Instructed patient to use call light;Instructed patient to request assist with mobility Sitting Balance: Standby assist Standing Balance: Minimal assist Activity Tolerance Endurance: 2/5 Tolerates 10-20 Minutes Exercise w/Multiple Rests Comment: Patient declined further activity due to fatigue after recently completing session with physical therapy Cognition Overall Cognitive Status: WFL to Adequately Complete Self Care Tasks Safely Orientation: Alert & Oriented x4 Assessment Assessment: Decreased ADL Status;Decreased Endurance;Decreased Self-Care Trans;Decreased High-LevelADLs Prognosis: Good;w/Cont OT s/p Acute Discharge AM-PAC 6 Clicks Daily Activity Inpatient Putting on and taking off regular lower body clothes: A Lot Bathing (Including washing, rinsing, drying): A Lot Toileting, which includes using toilet, bedpan, or urinal: Total Putting on and taking off regular upper body clothing: A Lot Taking care of personal grooming such as brushing teeth: A Little Eating meals: A Little Daily Activity Raw Score: 13 Standardized (T-scale) Score: 32.03 Plan OT Frequency: 3-5x/week OT Plan for Next Visit: Grooming tasks at sink Functional Transfer Goals Pt Will Perform All Functional Transfers: w/ Stand By Assist OT Discharge Recommendations Recommendation: Inpatient setting Patient requires the use of a walker with wheels to complete ADLs in the home including meal preparation, ambulation to the bathroom for toileting, bathing and grooming, and safe home mobility. Patient is unable to complete these ADLs with a cane or crutch and can safely use the walker. Therapist: ANDRE Landeros/Umair [id number] Date: 04/30/2023 * Stacie Palomares PTA - 04/30/2023 9:00 AM CDT PHYSICAL THERAPY PROGRESS NOTE Name: Silke Hansen : 1945 Age: 77 y.o. Admission Date: 04/22/2023 LOS: 8 days Date of Service: 04/30/2023 Mobility Patient Turn/Position: Chair Progressive Mobility Level: Walk in hallway Distance Walked (feet): 75 ft (x 2) Level of Assistance: Assist X2 (for chair follow) Assistive Device: Walker Activity Limited By: Weakness;Fatigue Subjective Significant hospital events: 77 y.o. female with a PMH of HTN presented initially to urgent care clinic 04/20 d/t RLQ pain and chills x1 day. Presented to OSH 04/20 and found to be tachycardic, febrile, and hypotensive with lactic acidosis. CT abd/pelvis showed obstructive stone in R ureter and transferred to [facility] 04/22 for Urology consult. On arrival to MICU, was hemodynamically stable off pressor, but found to have intermittent AMS and requiring increasing amounts of oxygen. Taken to OR early 04/23 for cystoscopy w/ right ureteral stent placement and returned to MICU intubated. Developed shock after return from OR and started on pressor. Extubated 04/23. Developed afib w/ RVR overnight 04/23 -04/24. Mental / Cognitive Status: Alert;Oriented;Cooperative Persons Present: RehabTechnician;Nursing Staff;Provider;Occupational Therapist (OT at end of session) Pain: Patient complains of pain;Patient does not rate pain Pain Location: (lips/mouth sores) Pain Interventions: Patient agrees to participate in therapy;Treatment altered to patient's pain tolerance Comments: Pt was in bed and was ready to be OOB and try walking. Comments: benson Ambulation Assist: Independent Mobility in Community without Device Patient Owned Equipment: None Home Situation: Lives with Family Type of Home: House Entry Stairs: Ramp In-Home Stairs: Able to Live on One Level Comments: Patient lives with her who reports she was very active prior to admission. 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 Bed Mobility/Transfer Bed Mobility: Supine to Sit: Standby Assist Transfer Type: Sit to/from Stand Transfer: Assistance Level: To/From;Bed;Minimal Assist;of 1st person;Standby Assist;of 2nd person Transfer: Assistive Device: Roller Walker Transfers: Type Of Assistance: Verbal Cues;For Safety Considerations End Of Activity Status: Sitting at Edge of Bed (with OT) Gait Gait Distance: 75 feet (x 2; seated rest, HR 91 and oxygen 96%) Gait: Assistance Level: Minimal Assist;of 1st person;Standby Assist;of 2nd person;Safety Considerations Gait: Assistive Device: Roller Walker;Wheelchair Follow Gait: Descriptors: Forward trunk flexion;Pace: Normal;Decreased foot clearance RLE;Decreased foot clearance LLE Comments: cues for walker placement; with fatigue, she has a tendency to push the walker too far ahead. Activity Limited By: Complaint of Fatigue;Weakness;SOA Activity/Exercise Comments: Pt required assistance with her brief and with ning-care after toileting. Assessment/Progress Comments: Pt is demonstrating daily improvement in activity tolerance. She is able to walk household distance, but fatigues quickly. Her functional mobility is limited by deconditioning and generalized weakness. AM-PAC 6 Clicks Basic Mobility Inpatient Turning from your back to your side while in a flat bed without using bed rails: A Little Moving from lying on your back to sitting on the side of a flat bed without using bedrails : A Little Moving to and from a bed to a chair (including a wheelchair): A Little Standing up from a chair using your arms (e.g. wheelchair, or bedside chair): A Little To walk in hospital room: A Little Climbing 3-5 steps with a railing: A Lot Basic Mobility Inpatient Raw Score: 17 Standardized (T-scale) Score: 39.67 Goals Goal Formulation: With Patient Time For Goal Achievement: 5 days Patient Will Go Supine To/From Sit: w/ Stand By Assist Patient Will Transfer Sit to Stand: w/ Stand By Assist Patient Will Ambulate: Greater than 200 Feet, w/ Walker, w/ Stand By Assist Plan Treatment Interventions: Mobility Training;Strengthening;Balance Activities;Endurance Training Plan Frequency: 5 Days per Week PT Plan for Next Visit: *bouts of short distance ambulation - focus on technique PT Discharge Recommendations Recommendation: Inpatient setting Therapist: Stacie Palomares PTA Date: 04/30/2023 * Kenya Lisa PA-C - 04/29/2023 4:49 PM CDT Heart Failure Progress Note NAME:Silke Hansen :1945 AGE: 77 y.o. ADMISSION DATE: 04/22/2023 DAYS ADMITTED: LOS: 7 days Principal Problem: Septic shock (HCC) Active Problems: Encephalopathy Acute hypoxemic respiratory failure (HCC) Pleural effusion Tachycardia Pneumonia UTI (urinary tract infection) Bacteremia Atrial fibrillation with RVR (HCC) Systolic dysfunction 79F HTN, and obesity. She was transferred to [facility] on 04/1023 to MICU for urosepsis. She initiallypresented to an urgent care clinic in [place] on 04/20/2023 with complaints of right lower quadrant pain and chills x1 day. She was prescribed Bactrim and Zofran. However, patient did not fill these prescriptions. Her clinical status deteriorated the same day and she was taken to [facility] on 04/20/2023 and was found to be tachycardic with heart rate in 120s. She was febrile with temp of 104F with hypotension. Her lactate was 5.98. She was received 2 L lactated ringer and was started on broad-spectrum antibiotics. She required pressor support with nor epi and vasopressin for septic shock due to urosepsis and pneumonia. Chest x-ray revealed right lower lobe infiltrates and effusion. A CT A/P revealed obstructive stone in her right ureter. Due to lack of urology service patientwas transferred to [facility]. On arrival to [facility] she was hemodynamically stable and off pressors. She was found to have intermittent acute mental status changes and increase oxygen requirement. She was emergently taken to OR on 04/23/23 and underwent cystoscopy with right ureteral splint placement. She returned back to MICU intubated. Her course for further complicated by development of shock and required pressor support. Overall she was felt to have septic shock due to urological source. OSH blood cultures grew Klebsiella oxytoca. She was eventually extubated on 04/23/23 and was weaned off pressors. She required NG tube placement. She developed A-fib RVR on 04/23/23. ECG with LBBB. Cardiology was consulted. She was eventually discharged to floor on 04/26/23. NG tube was discontinued on 04/28/23. Echocardiogram revealed decline in EF to 30 to 35%. This was in the setting of A fib RVR. Normal LVIDD and LVDVI. High-sensitivity random troponin I peaked to 2610. And trended down to 704. She underwent PET/CT MPI on 04/29/23 which showed fixed defect. It was a intermediate risk study. EF has improved on PET/CT MPI to 50%. Recommendations: Today: 1. Abnormal PET CT MPI with mostly fixed defect, however, given intermediate risk study, decline inEF, troponin elevation on admit and LBBB of unknown chronicity- we did discuss proceeding with [facility] +/- PCI. Patient wishes to recover from this hospitalization and will consider this in the outpatient setting. She is currently not having any anginal symptoms. We will treated as non-STEMI. We will start Clopidogrel 75 mg po daily for NSTEMI (done). Will defer ASA for now since she will need DOAC for A fib. 2. Patient is net -3.2L since admit. Appears to be compensated from HF standpoint. 3. Change Enoxaparin 1 mg/kg SQ BID to Apixaban 5 mg po bid (done). She is in SR. Ok to start at 2100. 4. GDMIT will be limited given marginal BP. Continue losartan 25 Mg p.o. daily. Recommend to change Metoprolol Tartrate to Metoprolol XL 50 mg po daily (ordered). Ok to start this evening given runs of AT. We are aware that she received metoprolol tartrate this am. Consider initiatoin of MRA ie S pironolactone in the outpatient setting. She is unlikely a candidate for SGLT2i given history of frequent UTIs and was treated for urosepsis this admit. 5. Remains on IV antibiotics. 6. Benson remains in place. 7. Check fasting lipid profile (ordered). Start Atorvastatin 40 mg po daily (ordered). 8. Gas Dispenser consultation to discuss sodium restricted diet (placed). 9. Cardiac Rehab evaluation for HFrEF (requested). Ongoin. BMP once a day/BID on diuretic drip. Magnesium level daily. Keep Potassium greater than 4.0 andMagnesium greater than 2.0. 2. 2000mg sodium dietary restriction. 3. Fluid Restriction:1.5 4. Strict I/O. Goal output: net neg evenL/24 hour 5. Daily standing scale weight. Goal Dry Weight: suspect around 171-176# 6. Follow up appointment with a member of the HF team: Primary team, for Heart Failure Clinic post hospital 7 day follow up visit, please place [facility] Appointment Request order set for "Cardiology: Heart Failure" appointment request within 24-48 hours of discharge. (Please do not place order any earlier in effort to reduce possible need for cancellation and rescheduling of visit). Discussed with Cardiology attending Dr. Barrett. Discussed with Dr. Slaughter with Primary team. Kenya Lisa PA-C Department of Cardiovascular Medicine [facility] Available on Voalte/AMS/Pager [phone]: [address] segment Elevation Myocardial Infarction Presumed CAD based on Abnormal stress test Left bundle branch block-unknown chronicity Guideline-Based Acute Myocardial Infarction Therapies P2y12 Antagonist: Yes ASA: No: Other (will be on Apixaban as well. avoiding "triple therapy" to reduce risk of bleeding) Beta Rosmery: Yes ALONZO/ARB/ARNI: (If EF <40%) No: Hypotension High Intensity Statin (Atorvastatin 40-80 mg or Rosuvastatin 20-40 mg): Yes Evaluation of Left Ventricular EF this admission: Yes: EF 30-35% on echo. 50% on PET CT MPI% - Is EF < 40%: No Cardiac Rehab Consult - Outpatient Cardiac Rehab: Yes Acute systolic HFrEF, EF: 30-35% NYHA Class III, ACC Stage C ICM vs. NICM in the setting of A fib RVR and septic shock Major Complications or Comorbidities (HALFWAY): Presumed CAD in the setting of abnormal stress test, a fib RVR, AT, Morbid obesity, untreated/undiagnosed MANISH She presents with signs of euvolemia with left ventricular failure without signs of low flow state. -NT pro BNP: 11 158 on 04/22/2023. Repeat on 04/28/2023 was 7917. -CXR 04/28/2023: Improved pulmonary edema. Decreased small layering pleural effusions. Adjacent basal opacities presumably reflect atelectasis. -Echo 04/24/23: Difficult to accurately assess the LV ejection fraction due to underlying atrial fibrillation and uncontrolled heart rates. Abnormal septal motion due to conduction abnormality. TheLV EF is currently estimated at 30 to 35%. Mildly reduced RV function Atria normal in size Normal valve morphology Mild mitral regurgitation seen Mild to moderate TR noted Elevated central venous pressure Mildly elevated PA systolic pressure Trivial AI is present Consider reassessing cardiac function when rhythm is regular or the rates are better controlled There is no prior study available for comparison AdmissionWeight: 81.1 kg (178 lb 12.7 oz) Most recent (inpatient): Vitals: 04/26/23 0414 04/27/23 0500 04/28/23 0432 Weight: 77.9 kg (171 lb 11.8 oz) 79.9 kg (176 lb 2.4 oz) 79.6 kg (175 lb 7.8 oz) Wt Readings from Last 10 Encounters: 04/28/23 79.6 kg (175 lb 7.8 oz) Intake/Output Summary (Last 24 hours) at 04/29/2023 1650 Last data filed at 04/29/2023 1033 Gross per 24 hour Intake 480 ml Output 150 ml Net 330 ml GDMT MODULAR SET CREW MEMBER Changes BB 04/24 metoprolol 5 Mg IV x2 04/24 metoprolol tartrate 50 Mg p.o. twice daily 04/29/23 Metoprolol Succinate 50 mg po daily ACEI/ARB/ARNI Losartan 50 mg po daily Aldosterone Antagonist Hydralazine/Nitrate No (N/A - patient not Black/) Ivabradine NA HRMT No (No prior history of HF, Not receiving optimal medical therapy for at least 3 months) SGLT2-i Recurrent UTI Recent ureteral stent for urosepsis Cardiac Rehab Requested on 04/29/23 Anticoagulation for Afib/flutter Currently on therapeutic Lovenox 04/29/2023 evening started on apixaban 5 Mg p.o. twice daily Diuretic Therapy Prior to admission dose none Given on admission 04/22 lasix 20 mg IV X 1 04/24-04/25 13 Lasix 40 Mg IV x1 04/26 Lasix 40 Mg IV x 2 Daily Dosing New onset Paroxysmal Atrial Fibrillation with rapid Ventricular Response Atrial Tachycardia [id number] is elevated ~ 5 Presented in sinus tach rhythm with left bundle branch block Went into A-fib RVR early on 04/24/2023 with rates up to 130s Received 5 Mg of IV metoprolol Required diltiazem drip which was weaned off on 04/24 at 2300 Eventually started on metoprolol titrate 50 Mg p.o. twice daily Intermittent episodes of what appears to be narrow complex fairly regular tachycardia with sudden onset/offset most likely atrial tachycardia. 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 daily. She was taking 50 Mg p.o. daily. BP has been marginal at times. Plan as above. Elevated BMI: Body mass index is 31.09 kg/m. Weight loss, Cardiac Healthy diet, and exercise whenpatient can tolerate. Reason for Consultation: Evaluation and recommendations re: heart failure History of Present Illness: Resting in bed. Feeling very well. Denies chest pain, shortness of breath, lightheadedness, dizziness, near fainting, palpitations, abd pain, back pain or bleeding issues. Review of Systems A 14 point review of systems was ascertained and is otherwise negative and/or normal except for: asabove Medical History: Diagnosis Date Hypertension Surgical History: Procedure Laterality Date CYSTOURETHROSCOPY WITH INDWELLING URETERAL STENT INSERTION Right 04/23/2023 Performed by Jerald Lindquist MD at [facility] OR CYSTOURETHROSCOPY WITH URETERAL CATHETERIZATION WITH/ WITHOUT IRRIGATION/ INSTILLATION/ URETEROPYELOGRAPHY Right 04/23/2023 Performed by Jerald Lindquist MD at [facility] OR RETROGRADE UROGRAPHY WITH/ WITHOUT KUB Right 04/23/2023 Performed by Jerald Lindquist MD at [facility] OR No family history on file. Social History Socioeconomic History Marital status: Tobacco Use Smoking status: Never Smokeless tobacco: Never Substance and Sexual Activity Alcohol use: Never Drug use: Never Objective: Allergies: Allergies Allergen Reactions Codeine UNKNOWN Reported in OSH records Medications: Scheduled Meds:apixaban (ELIQUIS) tablet 5 mg, 5 mg, Oral, BID cefTRIAXone (ROCEPHIN) IVP 2 g, 2 g, Intravenous, Q24H* clopiDOGreL (PLAVIX) tablet 75 mg, 75 mg, Oral, QDAY insulin aspart (U-100) (NOVOLOG FLEXPEN U-100 INSULIN) injection PEN 0-6 Units, 0-6 Units, Subcutaneous, Q4H [Held by Provider] losartan (COZAAR) tablet 25 mg, 25 mg, Oral, QDAY metoprolol succinate XL (TOPROL XL) tablet 50 mg, 50 mg, Oral, QDAY tamsulosin (FLOMAX) capsule 0.4 mg, 0.4 mg, Oral, QDAY after breakfast valACYclovir (VALTREX) tablet 1,000 mg, 1,000 mg, Oral, BID Continuous Infusions: [Held by Provider] Diet Critical Care Enteral Feeding Volume Based Infusion Stopped (04/26/23 6575) PRN and Respiratory Meds:acetaminophen Q4H PRN, albuterol sulfate PRN, albuterol-ipratropium Q4H PRN, aminophylline PRN, dextrose 50% (D50) IV PRN, yhlbsa-kxrvypgvb-xyi,al-simeth Q3H PRN, stkcxcmqukgJ4X PRN, loperamide (IMODIUM) oral solution PRN, nitroglycerin Q5 MIN PRN, pancrelipase 20,880 Unit s/sodium bicarbonate 650 mg (KU CLOG DESTROYER) PRN (Website Designer from Rx), phenoL PRN, sodium chloride 0.9% (NS) PRN Vital Signs: Last Filed Vital Signs: 24 Hour Range BP: 108/59 (04/29 1532) Temp: 37.2 C (98.9 F) (04/29 1532) Pulse: 98 (04/29 1532) Respirations: 16 PER MINUTE (04/29 1532) SpO2: 95 % (04/29 1532) O2 Device: None (Room air) (04/29 1532) BP: (95-126)/(47-61) Temp: [36.9 C (98.4 F)-37.2 C (99 F)] Pulse: [86-101] Respirations: [16 PER MINUTE-18 PER MINUTE] SpO2: [92 %-95 %] O2 Device: None (Room air) Physical Exam: General Appearance: no distress, obese, Lips with crusted lesions, discoloration Skin: warm and dry Lips & Oral Mucosa: no pallor or cyanosis Digits and Nails: normal color, smooth symmetric nails and digits Eyes: conjunctivae and lids normal Neck Veins: unable to accurately assess due to body habitus, however, does not appear to be distended. Auscultation/Percussion: breathing comfortably, lungs clear to auscultation, no rales or rhonchi, no wheezing Cardiac Auscultation: Regular rhythm, S1, S2, no S3 or S4, no audible murmur Pedal Pulses: pulses 2+, symmetric Lower Extremity Edema: no LE Edema, warm extremities Abdominal Exam: soft, non-tender, bowel sounds normal, no hepatomegaly Orientation: clear historian, good insight Laboratory Review: CBC w/Diff Lab Results Component Value Date/Time WBC 13.4 (H) 04/29/2023 04:53 AM RBC 3.99 (L) 04/29/2023 04:53 AM HGB 11.6 (L) 04/29/2023 04:53 AM HCT 34.3 (L) 04/29/2023 04:53 AM MCV 86.1 04/29/2023 04:53 AM MCH 29.0 04/29/2023 04:53 AM MCHC 33.7 04/29/2023 04:53 AM RDW 14.2 04/29/2023 04:53 AM PLTCT 307 04/29/2023 04:53 AM MPV 8.2 04/29/2023 04:53 AM Lab Results Component Value Date/Time NEUT 77 04/29/2023 04:53 AM ANC 10.38 (H) 04/29/2023 04:53 AM LYMA 14 (L) 04/29/2023 04:53 AM ALC 1.82 04/29/2023 04:53 AM BERNADINE 6 04/29/2023 04:53 AM AMC 0.78 04/29/2023 04:53 AM EOSA 3 04/29/2023 04:53 AM AEC 0.35 04/29/2023 04:53 AM BASA 0 04/29/2023 04:53 AM ABC 0.03 04/29/2023 04:53 AM Chemistry Lab Results Component Value Date/Time NA 143 04/29/2023 04:53 AM K 3.5 04/29/2023 04:53 AM CL 104 04/29/2023 04:53 AM CO2 30 04/29/2023 04:53 AM GAP 9 04/29/2023 04:53 AM BUN 18 04/29/2023 04:53 AM CR 0.67 04/29/2023 04:53 AM GLU 101 (H) 04/29/2023 04:53 AM MG 2.0 04/29/2023 04:53 AM Lab Results Component Value Date/Time CA 8.2 (L) 04/29/2023 04:53 AM PO4 3.4 04/29/2023 04:53 AM ALBUMIN 2.9 (L) 04/29/2023 04:53 AM TOTPROT 5.8 (L) 04/29/2023 04:53 AM ALKPHOS 32 04/29/2023 04:53 AM AST 35 04/29/2023 04:53 AM ALT 35 04/29/2023 04:53 AM TOTBILI 0.6 04/29/2023 04:53 AM Renal Function Lab Results Component Value Date/Time NA 143 04/29/2023 04:53 AM K 3.5 04/29/2023 04:53 AM CL 104 04/29/2023 04:53 AM CO2 30 04/29/2023 04:53 AM GAP 9 04/29/2023 04:53 AM BUN 18 04/29/2023 04:53 AM BUN 19 04/28/2023 05:44 AM BUN 22 04/27/2023 05:02 AM Lab Results Component Value Date/Time CR 0.67 04/29/2023 04:53 AM CR 0.58 04/28/2023 05:44 AM CR 0.56 04/27/2023 05:02 AM GLU 101 (H) 04/29/2023 04:53 AM CA 8.2 (L) 04/29/2023 04:53 AM PO4 3.4 04/29/2023 04:53 AM ALBUMIN 2.9 (L) 04/29/2023 04:53 AM Lipid Profile INR No results found for: "CHOL", "TRIG", "HDL", "LDL", "VLDL", "NONHDLCHOL", "CHOLHDLC" Lab Results Component Value Date INR 1.4 (H) 04/22/2023 Tele: NSR, BBB, short burst of narrow complex fairly regular tachycardia with sudden onset offset likely atrial tachycardia Echocardiogram Details: Echo Results (Last 3 results in the past 3 years) Echo EF LVIDD LA Size IVS LVPW Rest PAP -- (04/24/23) 3.60 (04/24/23) 3.70 (04/24/23) 1.10 (04/24/23) 1.00 (04/24/23) 44 Associated attestation - Derrek Barrett MD - 04/29/2023 7:25 PM CDT Cardiology Staff Physician Attestation I have personally interviewed and examined the patient. I have reviewed the medical record, labs, pertinent imaging / laboratory studies and all pertinent medical documentation including the history, physical, and impression. I agree with the jointly formulated treatment plan as outlined by the Cardiology [place] COLE. Patient doing well this morning. We discussed the results of her PET/CT myocardial perfusion studytoday. This study was also consistent with prior mid to distal LAD territory infarct. It was predominantly fixed with minimal reversibility. LVEF was low normal at 50%. Interesting the myocardialblood flow was normal and she had only trace coronary artery calcification. This raises suspicion for possible prior coronary vasospasm or potentially even a false positive study. Given the intermediate risk nature, we offered her coronary angiography. The other option is to continue medical management and follow-up in the outpatient setting. She would prefer to recover more from her acute medical illness. She was happy to see us back in the office. We will plan to see her back in about 4to 6 weeks. I do think that we will probably pursue angiography down the road. We will look to optimize her GDMT. She can change from therapeutic enoxaparin over to apixaban. I would like to start her on clopidogrel. We will hold off on aspirin given therapeutic anticoagulation. We will change her metoprolol tartrate over to metoprolol succinate. We will check a fasting lipid profile and start her on atorvastatin. We will continue her low-dose losartan. I do not think she has the bloodpressure for aldosterone antagonist diuretic at this time. Patient's questions were answered and they agreed with the above plan. Thank you for the opportunity to participate in the care of your patient. Please call with questions or concerns. Derrek Barrett MD, [facility] Department of Cardiovascular Medicine [facility] * Hussain Slaughter MD - 04/29/2023 3:40 PM CDT General Progress Note Name: Silke Hansen : 1945 Age: 77 y.o. Admission Date: 04/22/2023 LOS: 6 days Date of Service: 04/28/2023 Assessment/Plan: Principal Problem: Septic shock (HCC) Active Problems: Encephalopathy Acute hypoxemic respiratory failure (HCC) Pleural effusion Tachycardia Pneumonia UTI (urinary tract infection) Bacteremia Atrial fibrillation with RVR (HCC) Systolic dysfunction Silke Hansen is a 77 y.o. female with PMH of HTN who presented to OSH on 04/20 w/ c/o rlq pain and chills for 1 day. Found to be in septic shock w/ a R ureter obstructive stone. [facility] Upon arrival to she was off pressors but increasingly altered w/ increased O2 requirements. Taken to OR early 04/23 for cystoscopy w/ right ureteral stent placement and returned to MICU intubated. Developed shock after return from OR and pressor restarted.Extubated 04/23 and now off pressors. Developed Afib w/ RVR on 04/23. Cardiology consulted and rate controlled w/ Metoprolol. Corpak still in place but has started eating so will likely be able to remove soon. PT/OT currently recommending inpt. Transferred out of the ICU 04/26. Acute Hypoxic Respiratory Failure - resolved Bilateral Pleural Effusions DDx pneumonia vs pleural effusions - No baseline oxygen use - On admit to MICU requiring 8L NC - CXR: RLL infiltrates and bilateral pleural effusions - NT-pro-BNP 11,158 - Intubated for OR, extubated 04/23 - CXR 04/28 with improvement in edema and pleural effusions Plan - Wean oxygen as able for spO2 goal >92% Septic Shock (resolved) 2/2 urinary source UTI Bacteremia Bladder stones, right ureteral stone Lactic Acidosis (resolved) - Likely 2/2 UTI - OSH echo 04/21: EF 50%, Paradoxical septal motion noted, AV leaflet thickening and trivial regurg.MV trivial regurg. TV w/ mild regurg. PV trivial regurg. PASP 30-35mmHg - Outside blood cultures (2/2) and urine culture grew Klebsiella oxytoca (one blood culture grew two separate isolates of K oxytoca) with the same sensitivities (R to ampicillin, S to everything else(including Bactrim, cephalosporins, Zosyn, Cipro)) - Lactate peaked at 5.98 (at OSH) - Trop peaked at 2610 - Developed shock after return from OR; levo off since extubation 04/23 -04/23: Right ureteral stent. Noted poor bladder emptying Plan -Continue Rocephin, plan for 10 days total -Urology consulted -Anaspaz, Flomax -Maintain Benson through discharge, urology outpatient follow-up for consideration of trial of voiding NSTEMI Hx HTN - Trop peaked at 2610. Initially suspected that it was demand in the setting of septic shock. Cardiac PET CT showed "Predominantly fixed defect is identified involving the mid septal wall for left ventricle extending to the anterior and inferior wall. On quantification, the area of reversibility isapproximately 4-8% of the left ventricular myocardium (12 mL left ventricular myocardial volume). Findings are compatible with myocardial infarction with mild ning-infarct ischemia." Plan: - Cardiology offered patient cardiac cath however she declined. 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) Afib w/ RVR (new onset) Acute on chronic systolic heart failure LBBB Atrial tachycardia - EKG on arrival to : ST w/ LBBB - Went into afib w/ RVR early 04/24, rates into 130s --> given 5mg metop w/ slight improvement in rate, but remained in fib - Diltiazem gtt initiated for rate control; weaned off 04/24 at ~2300 - TTE 04/24: LVEF 30-35% (while in Afib), mildly reduced RV function, normal valve morphology - Stress test results as mentioned above Plan - Transition metoprolol tartrate to Toprol XL 50 mg daily - Transition therapeutic lovenox to Eliquis - Ischemia workup (cath) as outpatient Diarrhea - Cleared for regular diet, but Corpakplaced 04/24w/ drowsiness - Cdiff04/25:negative Plan - PRN imodium 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 Forgetful during conversations concerning for not fully improved Plan - Delirium precautions - Remove Corepak Wound: Wound Documentation Wound: Wounds Pressure injury Left;Right Buttocks (Active) 04/24/23 1500 Wound Type: Pressure injury Orientation: Left;Right Location: Buttocks Wound Location Comments: Is the Wound Open or Closed: Initial Wound Site Closure: Initial Dressing Placed: Pressure Injury Stages: Stage 1 Pressure Injury Present Within 24 Hours of Hosptial Admission: Yes If This Pressure Injury Is Suspected to Be Device Related, Please Select the Device:: Wound Assessment Non-blanchable;Red 04/29/23 1458 Ning-wound Assessment Intact 04/29/231457 Wound Drainage Amount None 04/29/231457 Wound Dressing Status None/open to air 04/29/231457 Wound Care Treatment or ointment applied 04/26/23 0800 Wound Dressing and/or Treatment A & D ointment 04/29/23 145 Number of days: 5 FEN: No IVF, replace lytes PRN, regular diet Ppx: Lovenox Code status: FULL Dispo: Continue inpatient admission Total Time Today was 60 minutes in the following activities: Preparing to see the patient, Obtaining and/or reviewing separately obtained history, Performing a medically appropriate examination and/or evaluation, Counseling and educating the patient/family/caregiver, Ordering medications, tests, orprocedures, Referring and communication with other health transition of care specialist (when not separately reported), Documenting clinical information in the electronic or other health record and Care coordination (not separately reported). Discussed with Cardiology. Hussain Slaughter MD Internal Medicine, Hospitalist Voalte is the preferred method of communication. Please use the [employer] First Call for all patient-related communications. Personal Voaltes and pagers are not answered at all hours. Subjective Silke Hansen is a 77 y.o. female. Patient had no acute overnight events. Patient feeling well this morning. Swelling some pain in her lips in her mouth but feels like it is slowly improving. Continues to deny any odynophagia. Continues to drink at least 1-2 boost shakes per day in addition totrying to eat solid food. Other than her mouth she is feeling well. She continues to deny any lightheadedness, dizziness, vision changes, chest pain, dyspnea, palpitations, racing heart. She is eager to get out of the hospital soon as possible. Medications Scheduled Meds:cefTRIAXone (ROCEPHIN) IVP 2 g, 2 g, Intravenous, Q24H* enoxaparin (LOVENOX) syringe 80 mg, 1 mg/kg, Subcutaneous, BID insulin aspart (U-100) (NOVOLOG FLEXPEN U-100 INSULIN) injection PEN 0-6 Units, 0-6 Units, Subcutaneous, Q4H [Held by Provider] losartan (COZAAR) tablet 25 mg, 25 mg, Oral, QDAY metoprolol tartrate (LOPRESSOR) tablet 50 mg, 50 mg, Feeding Tube, BID tamsulosin (FLOMAX) capsule 0.4 mg, 0.4 mg, Oral, QDAY after breakfast valACYclovir (VALTREX) tablet 1,000 mg, 1,000 mg, Oral, BID Continuous Infusions: [Held by Provider] Diet Critical Care Enteral Feeding Volume Based Infusion Stopped (04/26/23 3865) PRN and Respiratory Meds:acetaminophen Q4H PRN, albuterol sulfate PRN, albuterol-ipratropium Q4H PRN, aminophylline PRN, dextrose 50% (D50) IV PRN, uxbulu-pxygrzdgv-sjq,al-simeth Q3H PRN, [id number] PRN, loperamide (IMODIUM) oral solution PRN, nitroglycerin Q5 MIN PRN, pancrelipase 20,880 Unit s/sodium bicarbonate 650 mg (KU CLOG DESTROYER) PRN (Website Designer from Rx), phenoL PRN, sodium chloride 0.9% (NS) PRN Review of Systems: Positive for lip lesions/pain. Negative for fevers, chills, MEYERS, vision changes, light-headedness, dizziness, chest pain, dyspnea, cough, abdominal pain, nausea, vomiting, constipation, diarrhea, dysuria, skin changes. Objective: Vital Signs: Last Filed Vital Signs: 24 Hour Range BP: 108/59 (04/29 1532) Temp: 37.2 C (98.9 F) (04/29 1532) Pulse: 98 (04/29 1532) Respirations: 16 PER MINUTE (04/29 1532) SpO2: 95 % (04/29 1532) O2 Device: None (Room air) (04/29 1532) BP: (95-130)/(47-70) Temp: [36.9 C (98.4 F)-37.8 C (100 F)] Pulse: [86-101] Respirations: [16 PER MINUTE-18 PER MINUTE] SpO2: [92 %-95 %] O2 Device: None (Room air) Vitals: 04/26/23 0414 04/27/23 0500 04/28/23 0432 Weight: 77.9 kg (171 lb 11.8 oz) 79.9 kg (176 lb 2.4 oz) 79.6 kg (175 lb 7.8 oz) Intake/Output Summary: (Last 24 hours) Intake/Output Summary (Last 24 hours) at 04/29/2023 1540 Last data filed at 04/29/2023 1033 Gross per 24 hour Intake 480 ml Output 150 ml Net 330 ml Stool Occurrence: 3 Physical Exam General appearance: alert, well-developed, well-nourished, cooperative, no distress and mildly obese Head: Normocephalic, without obvious abnormality, atraumatic Eyes: negative findings: conjunctivae and sclerae normal and corneas clear Mouth: Lips with crusted lesions, oropharynx with small vesicular lesions Neck: supple, symmetrical, trachea midline and no JVD Lungs: clear to auscultation bilaterally Heart: regular rate and rhythm, S1, S2 normal, no murmur, click, rub or gallop Abdomen: soft, non-tender. Bowel sounds normal. No masses, no organomegaly Extremities: no ulcers, gangrene or trophic changes, RLE with trace pitting edema, LLE with 1+ pitting edema Neurologic: A&Ox4, strength exam grossly normal Peripheral pulses: 2+ and symmetric Skin: Skin color, texture, turgor normal. No rashes or lesions Lab Review Pertinent labs reviewed Point of Care Testing (Last 24 hours) Glucose: (!) 101 (04/29/23 0453) POC Glucose (Download): (!) 128 (04/29/23 1201) Radiology and other Diagnostics Review: Pertinent radiology reviewed. Hussain Slaughter MD * Stacie Palomares PTA - 04/29/2023 1:07 PM CDT PHYSICAL THERAPY NOTE Name: Silke Hansen : 1945 Age: 77 y.o. Admission Date: 04/22/2023 LOS: 7 days Date of Service: 04/29/2023 Pt was sitting in the chair and stated she was tired from going down for the stress test and from having diarrhea 3 times. She did not want to walk/sit <> stand repetitions at this time. Pt said she is excited for the meal her niece is bringing (stan). Provided active listening as she shared about medical course that brought her here. Physical therapy will continue for progressive mobility. Therapist: Stacie Palomares PTA Date: 04/29/2023 * Natalee Estes, JOBY - 04/29/2023 12:16 PM CDT CLINICAL NUTRITION Clinical Nutrition Follow-Up Assessment Name: Silke Hansen : 1945 Age: 77 y.o. Admission Date: 04/22/2023 LOS: 7 days Date of Service: 04/29/2023 Recommendation: Avoid prolonged NPO status. Advance to Regular diet when able ? Encourage small frequent meals with 1-2 protein sources ? Recommend consuming ~2 Boost/day ? Recommend utilizing beneprotein packets to add to foods ? Recommend consuming soft protein foods like indian yogurt, cottage cheese and eggs Comments: RD followed up with pt to monitor improvements of PO intakes and to obtain nutrition information tocomplete pts malnutrition assessment. Pts NG tube removed on 04/28. RD encouraged pt to consume adequate PO intakes and to drink 1-2 Boost/day. Pt was eating cake at time of visit with no family at bedside. Pt reports that she has liked eating ice cream here but has problems with the food from roomservice due to the taste of food being bad. Pt reports that she likes eggs from home but does not like them from room service. Pt reports that her family was bringing in food for her today. Pt reports that prior to admission she had a good appetite and was eating 3 meals/day. Pt reports that her wtwas stable at home and states that she had been gaining wt at home. Pt at nutritional risk, will continue to monitor. Nutrition Assessment of Patient: Admit Weight: 81.1 kg; Weight Change Since Admit: -1.5 kg (-3.6 L since admit) BMI (Calculated): 31.35; BMI Categories Adult: Obesity Class I: 30-34.9 Pertinent Allergies/Intolerances: none Pertinent Labs: reviewed; Pertinent Meds: reviewed; ; Current Oral Intake: Inadequate;Improving Estimated Calorie Needs: 0282-1138 (25-27 kcals/kg DBW, aka MSJ x 1.3-1.4 AF) Estimated Protein Needs: 76-96 (1.2-1.5 gm/kg per DBW 63.7 kg) Malnutrition Assessment: Does not meet criteria Nutrition Focused Physical Assessment: Loss of Subcutaneous Fat: Yes; Severity: Moderate; Location: Orbital Muscle Wasting: Yes; Severity: Mild; Location: Hindu, Interosseous Edema: Yes; Severity: Mild; Location: Generalized, Lower extremities, Upper extremities Pressure Injury: Stage 1 buttocks Comment: LBM 04/28 Nutrition Diagnosis: Inadequate oral intake Etiology: related to AMS Signs & Symptoms: Pt confused/drowsey, corpak placed for EN Intervention / Plan: Followed up on pts PO intakes and full nutrition assessment Monitor tolerance/adequacy of PO intakes Montior wt trends, GI function, meds, labs and skin integrity Goals: EN tolerated and meeting >85% of nutritional needs Time Frame: Within 72 hours Status: New goal established Patient to consume >50% of meals/supplements Time Frame: Within 48 hours Status: Ongoing Natalee MALAGON, JOBYN, LD Available on [facility] Office: [phone] * Kaylyn Zarate OT - 04/28/2023 1:50 PM CDT OCCUPATIONAL THERAPY Daily Note Name: Silke Hansen : 1945 Age: 77 y.o. Admission Date: 04/22/2023 LOS: 6 days Date of Service: 04/28/2023 Mobility Progressive Mobility Level: Sit on edge of bed Level of Assistance: Assist X1-2 Assistive Device: Hand Held Activity Limited By: Weakness;Mental Status Variability 04/28: up with Ax2 to chair and use of Sarastedy this am with PT Subjective Pertinent Dx per Physician: PMH of HTN presented initially to urgent care clinic 04/20 d/t RLQ pain and chills x1 day. Presented to OSH 04/20 and found to be tachycardic, febrile, and hypotensive with lactic acidosis of 5.98. Shock refractory to IVF and started on pressor. CT abd/pelvis showed obstructive stone in R ureter and transferred to [facility] 04/22 for Urology consult. On arrival to MICU, was hemodynamically stable off pressor, but found to have intermittent AMS and requiring increasing amounts of oxygen. Taken to OR early 04/23 for cystoscopy w/ right ureteral stent placement and returned to MICU intubated. Developed shock after return from OR and started on pressor. Infectious w/u in process, but suspect shock from urological source. OSH blood cultures + GNR, remains on abx. Extubated 04/23, now off pressor. Developed afib w/ RVR overnight 04/23-04/24, starting AC and diltiazemdrip. Continue ICU care Precautions: Falls;Isolation;Vision/Cognitive Deficits Pain / Complaints: Patient agrees to participate in therapy Comments: Pt supine in bed as therapists enter and exit. All needs in reach. Vitals stable with activity and no change in HR or BP with activity. Objective Psychosocial Status: Willing and Cooperative to Participate Persons Present: Spouse and Son Home Living Type of Home: House Home Layout: One Level Bathroom Shower / Tub: Tub/Shower Unit Bathroom Toilet: Standard Comment: Ramped entrance. Prior Function Level Of [place]: Independent with ADLs and functional transfers;Independent with homemaking w/ ambulation Lives With: Spouse Receives Help From: None Needed Other Function Comments: Enjoys spending time with family and grandchildren. 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 Enjoys going to [employer] and working on restoring furniture. She is typically extremely active and "on the go." Vision: functional vision with adls today and tracking all directions ADL's: 04/28/23 Sitting up in bed Feeding: minimal assist Grooming: moderate assist UE Dressing: moderate assist LE Dressing: Total assist Bathing: moderate assist Toileting Assist: Total Assist Toileting Deficits: (+besnon; per notes benson to remain until f/u in outpt with Urology) Comment: pt showing good rom to reach mouth and overhead with feeding and grooming. Pt up earlier today to chair with PT although not wanting up again with plans to return down to Radiology this pm per family for an xray. Pt also with cardiology consult with possible cardioversion for afib?? Pt able to demonstrate overhead rom and performed UE exercises in all planes. Pt agreeable to work furtherat EOB with OT in the am. Discussed progression with therapy when in SNF/Rehab. Pt with some off topic speech/decreased memory but doesn't feel it herself. Pt is able to reorient with minimal verbal cues. All needs addressed end of session with spouse present with pt and bed alarm activated. ADL Mobility: pt up with assist of 2 with PT 04/28 but needing Rip Stedy for safety/weakness back to bed. Activity Tolerance Endurance: 2/5 Tolerates 10-20 Minutes Exercise w/Multiple Rests Cognition Overall Cognitive Status: Impaired Comprehension: following all commands with extra time Expression: Increased Time for Expression Social Interaction: Increased Time to Adjust Problem Solving: Decreased Judgment/Safety Attention: continues to get off topic at times but redirects well 04/28 ROM R UE ROM: WFL (pt getting approx 140-150 deg right shoulder with previous injury) L UE ROM: WFL Coordination: Mild Delay Grasp: Bilateral Grasp Functional for Activity Sensory Overall Sensory: Pt Perceives Pressure in Both UEs in Gross Exam UE Strength / Tone Strength Comments: pt with functional strength UEs; limited more with proximal weakness and LE weakness from sepsis Education Persons Educated: Patient Barriers To Learning: Decreased Alertness Interventions: Repetition of Instructions;Physical Cueing Teaching Methods: Verbal Instruction Patient Response: Verbalized Understanding Topics: Role of OT, Goals for Therapy Goal Formulation: With Patient/Family Assessment Assessment: Decreased ADL Status;Decreased Endurance;Decreased Self-Care Trans;Decreased High-LevelADLs;Decreased Cognition;Decreased Safe/Judg during ADL Prognosis: Good;w/Cont OT s/p Acute Discharge Goal Formulation: Patient and Spouse AM-PAC 6 Clicks Daily Activity Inpatient Putting on and taking off regular lower body clothes: A Lot Bathing (Including washing, rinsing, drying): Total Toileting, which includes using toilet, bedpan, or urinal: A Lot Putting on and taking off regular upper body clothing: A Lot Taking care of personal grooming such as brushing teeth: A Lot Eating meals: Total Daily Activity Raw Score: 10 Standardized (T-scale) Score: 27.31 Plan OT Frequency: 3-5x/week OT Plan for Next Visit: work on EOB grooming and focus to task; work on scooting EOB and progress to chair as tolerated (PT using Rip Cruz 04/28 am); continue with reorientation. Practice to commode/toileting as appropriate. (in a-fib 04/28 with possible cardioversion??) ADL Goals Patient Will Perform All ADL's: w/ Stand By Assist Functional Transfer Goals Pt Will Perform All Functional Transfers: w/ Stand By Assist OT Discharge Recommendations Recommendation: Inpatient setting Comments:mild confusion continues; weakness and safety issues that should continue to improve with therapy in rehab/SNF setting. Therapist: Kaylyn Zarate OTR/L [id number] Date: 04/28/2023 * Hussain Slaughter MD - 04/28/2023 12:19 PM CDT General Progress Note Name: Silke Hansen : 1945 Age: 77 y.o. Admission Date: 04/22/2023 LOS: 6 days Date of Service: 04/28/2023 Assessment/Plan: Principal Problem: Septic shock (HCC) Active Problems: Encephalopathy Acute hypoxemic respiratory failure (HCC) Pleural effusion Tachycardia Pneumonia UTI (urinary tract infection) Bacteremia Atrial fibrillation with RVR (HCC) Silke Hansen is a 77 y.o. female with PMH of HTN who presented to OSH on 04/20 w/ c/o rlq pain and chills for 1 day. Found to be in septic shock w/ a R ureter obstructive stone. Transferred [facility] care. Upon arrival to she was off pressors but increasingly altered w/ increased O2 requirements. Taken to OR early 04/23 for cystoscopy w/ right ureteral stent placement and returned to MICU intubated. Developed shock after return from OR and pressor restarted.Extubated 04/23 and now off pressors. Developed Afib w/ RVR on 04/23. Cardiology consulted and rate controlled w/ Metoprolol. Corpak still in place but has started eating so will likely be able to remove soon. PT/OT currently recommending inpt. Transferred out of the ICU 04/26. Acute Hypoxic Respiratory Failure - resolved Bilateral Pleural Effusions DDx pneumonia vs pleural effusions - No baseline oxygen use - On admit to MICU requiring 8L NC - CXR: RLL infiltrates and bilateral pleural effusions - NT-pro-BNP 11,158 - Intubated for OR, extubated 04/23 - CXR 04/28 with improvement in edema and pleural effusions Plan - Wean oxygen as able for spO2 goal >92% Septic Shock (resolved) 2/2 urinary source UTI Bladder stones, right ureteral stone Lactic Acidosis (resolved) Poor bladder emptying - Likely 2/2 UTI - OSH echo 04/21: EF 50%, Paradoxical septal motion noted, AV leaflet thickening and trivial regurg.MV trivial regurg. TV w/ mild regurg. PV trivial regurg. PASP 30-35mmHg - Lactate peaked at 5.98 (at OSH) - Trop peaked at 2610 - Developed shock after return from OR; levo off since extubation 04/23 -04/23: Right ureteral stent. Noted poor bladder emptying Plan -Urology consulted -Cherie Hernandez -Maintain Benson through discharge, urology outpatient follow-up for consideration of trial of voiding NSTEMI, Type 2 Hx HTN - Trop peaked at 2610. 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 daily ([id number] daily MODULAR SET CREW MEMBER) Afib w/ RVR (new onset) Acute on chronic systolic heart failure LBBB - EKG on arrival to : ST w/ LBBB - Went into afib w/ RVR early 04/24, rates into 130s --> given 5mg metop w/ slight improvement in rate, but remained in fib - Diltiazem gtt initiated for rate control; weaned off 04/24 at ~2300 - TTE 04/24: LVEF 30-35% (while in Afib), mildly reduced RV function, normal valve morphology Plan - Cardiology re-consulted - Continue [id number] BID - Continue therapeutic lovenox - Obtain stress test to rule out ischemia Diarrhea - Cleared for regular diet, but Corpakplaced 04/24w/ drowsiness - Cdiff04/25:negative - Last BM 04/26,multiple episodes of diarrhea Acute toxic/metabolic encephalopathy, improving - Prior to intubation, was A&Ox4 but intermittently confused - thought 2/2 infection vs delirium - Returned from OR intubated/sedated, now extubated and off sedationsince 04/23 - Ammonia 46, VBG CO2 of 53 - On exam: oriented x 4 but falls asleep during conversation. Forgetful during conversations concerning for not fully improved Plan - Delirium precautions - Remove Corepak Wound: Wound Documentation Wound: Wounds Pressure injury Left;Right Buttocks (Active) 04/24/23 1500 Wound Type: Pressure injury Orientation: Left;Right Location: Buttocks Wound Location Comments: Is the Wound Open or Closed: Initial Wound Site Closure: Initial Dressing Placed: Pressure Injury Stages: Stage 1 Pressure Injury Present Within 24 Hours of Hosptial Admission: Yes If This Pressure Injury Is Suspected to Be Device Related, Please Select the Device:: Wound Assessment Non-blanchable;Red 04/28/23 08 Ning-wound Assessment Intact 04/28/23 08 Wound Drainage Amount None 04/28/23 08 Wound Dressing Status None/open to air 04/28/23 08 Wound Care Treatment or ointment applied 04/26/23 08 Wound Dressing and/or Treatment A & D ointment 04/28/23 0800 Number of days: 4 FEN: No IVF, replace lytes PRN, regular diet Ppx: Lovenox Code status: FULL Dispo: Continue inpatient admission Total Time Today was 55 minutes in the following activities: Preparing to see the patient, Obtaining and/or reviewing separately obtained history, Performing a medically appropriate examination and/or evaluation, Counseling and educating the patient/family/caregiver, Ordering medications, tests, orprocedures, Referring and communication with other health transition of care specialist (when not separately reported), Documenting clinical information in the electronic or other health record and Care coordination (not separately reported) Hussain Slaughter MD Internal Medicine, Hospitalist Voalte is the preferred method of communication. Please use the [employer] First Call for all patient-related communications. Personal Voaltes and pagers are not answered at all hours. Subjective Silke Hansen is a 77 y.o. female. Patient had no acute overnight events. She is feeling well thismorning. Still having some pain on her lips from her lesions but otherwise reports no oral lesions or odynophagia. She is having some PO intake, does better with colder foods. She denies any light-headedness, chest pain, dyspnea, racing heart with her episodes of tachycardia noted on telemetry. Shehas no acute complaints this AM other than her lips. Medications Scheduled Meds:cefTRIAXone (ROCEPHIN) IVP 2 g, 2 g, Intravenous, Q24H* enoxaparin (LOVENOX) syringe 80 mg, 1 mg/kg, Subcutaneous, BID insulin aspart (U-100) (NOVOLOG FLEXPEN U-100 INSULIN) injection PEN 0-6 Units, 0-6 Units, Subcutaneous, Q4H [Held by Provider] losartan (COZAAR) tablet 25 mg, 25 mg, Oral, QDAY metoprolol tartrate (LOPRESSOR) tablet 50 mg, 50 mg, Feeding Tube, BID Protein Supplement Packets, , SEE ADMIN INSTRUCTIONS, QDAY tamsulosin (FLOMAX) capsule 0.4 mg, 0.4 mg, Oral, QDAY after breakfast Continuous Infusions: [Held by Provider] Diet Critical Care Enteral Feeding Volume Based Infusion Stopped (04/26/23 1545) PRN and Respiratory Meds:acetaminophen Q4H PRN, albuterol-ipratropium Q4H PRN, dextrose 50% (D50) IV PRN, zunvkv-fwbulxnro-zfg,al-simeth Q3H PRN, hyoscyamine Q4H PRN, loperamide (IMODIUM) oral solution PRN, pancrelipase 20,880 Units/sodium bicarbonate 650 mg (KU CLOG DESTROYER) PRN (Website Designer from Rx), phenoL PRN Review of Systems: Positive for lip lesions/pain. Negative for fevers, chills, MEYERS, vision changes, light-headedness, dizziness, chest pain, dyspnea, cough, abdominal pain, nausea, vomiting, constipation, diarrhea, dysuria, skin changes. Objective: Vital Signs: Last Filed Vital Signs: 24 Hour Range BP: 94/59 (04/28 1106) Temp: 37.8 C (100.1 F) (04/28 0745) Pulse: 96 (04/28 1123) Respirations: 16 PER MINUTE (04/28 07) SpO2: 92 % (04/28 1106) O2 Device: None (Room air) (04/28 110) O2 Liter Flow: 1 Lpm (04/28 0745) BP: (94-127)/(39-66) Temp: [37 C (98.6 F)-37.8 C (100.1 F)] Pulse: [82-162] Respirations: [16 PER MINUTE-18 PER MINUTE] SpO2: [92 %-97 %] O2 Device: None (Room air) O2 Liter Flow: 1 Lpm Vitals: 04/26/23 0414 04/27/23 0500 04/28/23 0432 Weight: 77.9 kg (171 lb 11.8 oz) 79.9 kg (176 lb 2.4 oz) 79.6 kg (175 lb 7.8 oz) Intake/Output Summary: (Last 24 hours) Intake/Output Summary (Last 24 hours) at 04/28/2023 1219 Last data filed at 04/28/2023 1000 Gross per 24 hour Intake 480 ml Output 600 ml Net -120 ml Stool Occurrence: 1 Physical Exam General appearance: alert, well-developed, well-nourished, cooperative, no distress and mildly obese Head: Normocephalic, without obvious abnormality, atraumatic Eyes: negative findings: conjunctivae and sclerae normal and corneas clear Neck: supple, symmetrical, trachea midline and no JVD Nose: NG tube in place Lungs: clear to auscultation bilaterally Heart: regular rate and rhythm, S1, S2 normal, no murmur, click, rub or gallop Abdomen: soft, non-tender. Bowel sounds normal. No masses, no organomegaly Extremities: no ulcers, gangrene or trophic changes, RLE with trace pitting edema, LLE with 1-2+ pitting edema Neurologic: Grossly normal Peripheral pulses: 2+ and symmetric Skin: Skin color, texture, turgor normal. No rashes or lesions Lab Review Pertinent labs reviewed Point of Care Testing (Last 24 hours) Glucose: (!) 109 (04/28/23 0554) POC Glucose (Download): 96 (04/28/23 1870) Radiology and other Diagnostics Review: Pertinent radiology reviewed. Hussain Slaughter MD * Natalee Estes RD - 04/28/2023 12:16 PM CDT CLINICAL NUTRITION Clinical Nutrition Follow-Up Assessment Name: Silke Hansen : 1945 Age: 77 y.o. Admission Date: 04/22/2023 LOS: 6 days Date of Service: 04/28/2023 Recommendation: Continue Regular diet Encourage small frequent meals with 1-2 protein sources Recommend consuming ~2 Boost/day Recommend utilizing beneprotein packets to add to foods Recommend consuming soft protein foods like indian yogurt, cottage cheese and eggs Comments: Silke Hansen is a 77 y.o. female with PMH of HTN who presented to OSH on 04/20 w/ c/o rlq pain and chills for 1 day. Found to be in septic shock w/ a R ureter obstructive stone. [facility] Upon arrival to she was off pressors but increasingly altered w/ increased O2 requirements. Taken to OR early 04/23 for cystoscopy w/ right ureteral stent placement and returned to MICU intubated. Developed shock after return from OR and pressor restarted.Extubated 04/23 and now off pressors. Developed Afib w/ RVR on 04/23. Cardiology consulted and rate controlled w/ Metoprolol. Corpak still in place but has started eating so will likely be able to remove soon. PT/OT currently recommending inpt. Transferred out of the ICU 04/26. RD met with pt today for a nutrition follow up. Tube feeds stopped on 04/26 and diet advanced to regular. Pt has many sores on/in mouth that makes it difficult to eat food. RD encouraged intakes of soft foods like yogurt, cottage cheese, eggs, ice cream, and boost. RD recommends utilizing beneprotein when it can be added to foods and consuming at least 2 Boosts/day. Pt reports that she doesn't really feel hungry yet but has been improving. Pt is wanting the NG tube taken out. RD encouraged pt to continue to having improving PO intakes and then the NG tube can be taken out. RD provided pt withan apple sauce and pt enjoyed. RD also ordered pt strawberry indian yogurt and cottage cheese for ptto trial. RD to follow up tomorrow (04/29) to follow up on PO intakes and full nutrition assessment. Nutrition Assessment of Patient: Admit Weight: 81.1 kg; Weight Change Since Admit: -1.5 kg (-3.6 L since admit) BMI (Calculated): 31.35; BMI Categories Adult: Obesity Class I: 30-34.9 Pertinent Allergies/Intolerances: none reported Pertinent Labs: reviewed; Pertinent Meds: reviewed; ; Current Oral Intake: Inadequate;Improving Estimated Calorie Needs: 8166-2311 (25-27 kcals/kg DBW, aka MSJ x 1.3-1.4 AF) Estimated Protein Needs: 76-96 (1.2-1.5 gm/kg per DBW 63.7 kg) Malnutrition Assessment: Evaluation pending Nutrition Focused Physical Assessment: Loss of Subcutaneous Fat: Yes; Severity: Moderate; Location: Orbital Muscle Wasting: Yes; Severity: Mild; Location: Hindu, Interosseous Edema: Yes; Severity: Mild; Location: Lower extremities Pressure Injury: Stage 1 buttocks Comment: LBM 04/27; diarrhea Nutrition Diagnosis: Inadequate oral intake Etiology: related to AMS Signs & Symptoms: Pt confused/drowsey, corpak placed for EN Intervention / Plan: Assessed pts PO intakes Will monitor tolerance/adequacy of PO intakes and further need for EN support Will monitor wt trends, GI function, meds, labs and skin integrity Goals: EN tolerated and meeting >85% of nutritional needs Time Frame: Within 72 hours Status: New goal established Patient to consume >50% of meals/supplements Time Frame: Within 48 hours Natalee MALAGON, OJBYN, LD Available on Voalte Office: [phone] * Stacie Palomares PTA - 04/28/2023 9:21 AM CDT PHYSICAL THERAPY PROGRESS NOTE Name: Silke Hansen : 1945 Age: 77 y.o. Admission Date: 04/22/2023 LOS: 6 days Date of Service: 04/28/2023 Mobility Patient Turn/Position: Chair Progressive Mobility Level: Active transfer to chair Level of Assistance: Assist X2 Assistive Device: (rip stedy) Activity Limited By: Weakness;Fatigue Subjective Significant hospital events: 77 y.o. female with a PMH of HTN presented initially to urgent care clinic 04/20 d/t RLQ pain and chills x1 day. Presented to OSH 04/20 and found to be tachycardic, febrile, and hypotensive with lactic acidosis. CT abd/pelvis showed obstructive stone in R ureter and transferred to [facility] 04/22 for Urology consult. On arrival to MICU, was hemodynamically stable off pressor, but found to have intermittent AMS and requiring increasing amounts of oxygen. Taken to OR early 04/23 for cystoscopy w/ right ureteral stent placement and returned to MICU intubated. Developed shock after return from OR and started on pressor. Extubated 04/23. Developed afib w/ RVR overnight 04/23 -04/24. Mental / Cognitive Status: Alert;Oriented;Cooperative Persons Present: RehabTechnician;Family Pain: Patient complains of pain;Patient does not rate pain Pain Location: (lips/mouth sores) Pain Interventions: Patient agrees to participate in therapy;Treatment altered to patient's pain tolerance Comments: Pt was in bed and eager to move. Comments: corpack - not hooked to tube feed, benson, 2 liters oxygen Ambulation Assist: Independent Mobility in Community without Device Patient Owned Equipment: None Home Situation: Lives with Family Type of Home: House Entry Stairs: Ramp In-Home Stairs: Able to Live on One Level Comments: Patient lives with her who reports she was very active prior to admission. 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 Bed Mobility/Transfer Bed Mobility: Supine to Sit: Minimal Assist Transfer Type: Sit to/from Stand Transfer: Assistance Level: To/From;Bed;Minimal Assist;of 1st person;Standby Assist;of 2nd person Transfer: Assistive Device: (rip stedy) Transfers: Type Of Assistance: Verbal Cues;Elevated Bed;For Strength Deficit Other Transfer Type: Stand Pivot Other Transfer: Assistance Level: To;Bed Side Chair;Minimal Assist;x2 People Other Transfer: Assistive Device: (rip stedy) Other Transfer: Type Of Assistance: For Strength Deficit;For Safety Considerations End Of Activity Status: Up in Chair;Instructed Patient to Request Assist with Mobility;Nursing Notified Comments: Pt was primarily contact assist for transfers. She wanted to use the rip stedy to the chair for the first time. Walker placed in the room for future use and a commode was ordered. Activity/Exercise Sit Edge Of Bed: 30 minutes (approximate) Sit Edge Of Bed Assist: Stand By Assist Stand At Bedside : (3 x 2 minutes, approximate) Stand At Bedside Assist: x2 People (contact assist) Comments: Pt had no reports of dizziness/lightheadedness. She was able to lift her feet while standing in the rip stedy. Assessment/Progress Comments: Pt has demonstrated a significant improvement with activity tolerance. She required little physical assist for standing. At present, pt would benefit from continued therapy in an inpatient setting to improve strength/endurance prior to returning home. AM-PAC 6 Clicks Basic Mobility Inpatient Turning from your back to your side while in a flat bed without using bed rails: A Little Moving from lying on your back to sitting on the side of a flat bed without using bedrails : A Little Moving to and from a bed to a chair (including a wheelchair): A Lot Standing up from a chair using your arms (e.g. wheelchair, or bedside chair): A Little To walk in hospital room: A Lot Climbing 3-5 steps with a railing: A Lot Basic Mobility Inpatient Raw Score: 15 Standardized (T-scale) Score: 36.97 Goals Goal Formulation: With Patient Time For Goal Achievement: 5 days Patient Will Go Supine To/From Sit: w/ Stand By Assist Patient Will Transfer Sit to Stand: w/ Stand By Assist Patient Will Ambulate: Greater than 200 Feet, w/ Walker, w/ Stand By Assist Plan Treatment Interventions: Mobility Training;Strengthening;Balance Activities;Endurance Training Plan Frequency: 5 Days per Week PT Plan for Next Visit: *attempt ambulation PT Discharge Recommendations Recommendation: Inpatient setting Therapist: Stacie Palomares PTA Date: 04/28/2023 * Hussain Snyder MD - 04/27/2023 8:00 AM CDT Internal Medicine Inpatient Progress Note Name: Silke Hansen Admission Date: 04/22/2023 Today's Date: 04/27/2023 LOS: 5 days Assessment/Plan: Silke Hansen is a 77 y.o. female with PMH of HTN who presented to OSH on 04/20 w/ c/o rlq pain and chills for 1 day. Found to be in septic shock w/ a R ureter obstructive stone. Transferred to for further care. Upon arrival to she was off pressors but increasingly altered w/ increased [id number]. Taken to OR early 04/23 for cystoscopy w/ right ureteral stent placement and returned to MICU intubated. Developed shock after return from OR and pressor restarted. Extubated 04/23 andnow off pressors. Developed Afib w/ RVR on 04/23. Cardiology consulted and rate controlled w/ Metoprolol. Corpak still in place but has started eating so will likely be able to remove soon. PT/OTcurrently recommending inpt. Transferred out of the ICU 04/26. Acute Hypoxic Respiratory Failure Bilateral Pleural Effusions DDx pneumonia vs pleural effusions - No baseline oxygen use - On admit to MICU requiring 8L NC - CXR: RLL infiltrates and bilateral pleural effusions - NT-pro-BNP 11,158 - Intubated for OR, extubated 04/23 - [id number] Plan - Wean oxygen as able for spO2 goal >92% . - 04/27 has been satting >95% on 2L NC, will attempt nursing oxygen taper overnight. Consider diuresis in AM if not net even and still requiring O2. Septic Shock (resolved) 2/2 urinary source UTI Bladder stones, right ureteral stone Lactic Acidosis (resolved) Poor bladder emptying - Likely 2/2 UTI - OSH echo 04/21: EF 50%, Paradoxical septal motion noted, AV leaflet thickening and trivial regurg.MV trivial regurg. TV w/ mild regurg. PV trivial regurg. PASP 30-35mmHg - Lactate peaked at 5.98 (at OSH) - Trop peaked at 2610 - Developed shock after return from OR; levo off since extubation 04/23 -04/23: Right ureteral stent. Noted poor bladder emptying Plan -Urology consulted -Anaspaz, Flomax -Maintain Benson through discharge, urology outpatient follow-up for consideration of trial of voiding NSTEMI, Type 2 Hx HTN - Trop peaked at 2610. 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 If no recurrence then could consider discontinuing AC, would discuss with CV prior to this - On discharge if patient still have persistent atrial fibrillation, CV planning for cardioversion oncerecovered from infection Diarrhea - Cleared for regular diet, but Corpakplaced 04/24w/ drowsiness - Cdiff04/25:negative - Last BM 04/26,multiple episodes of diarrhea Acute toxic/metabolic encephalopathy, improving - Prior to intubation, was A&Ox4 but intermittently confused - thought 2/2 infection vs delirium - Returned from OR intubated/sedated, now extubated and off sedationsince 04/23 - Ammonia 46, VBG CO2 of 53 - On exam: oriented x 4 but falls asleep during conversation. Forgetful during conversations concerning for not fully improved Plan - Delirium precautions - Continue to hold tube feeds, continue to assess nutrition - If eating well by 04/27 consider Corpak removal Prophylaxis/Checklist: Diet: Regular Lines/Access: Peripheral IV Drains: Corpak DVT Ppx: Therapeutic Lovenox Code: Full Code Consults: Cardiology Signed off: Urology PT/OT: Consulted. Recommend placement, anticipate possible improvement with mental status improvement. Dispo: Inpt status; Anticipated dispo, location to be determined. High medical decision making due to the followin acute or chronic illness that poses a threat to life or bodily function (severe sepsis now resolved with urinary tract infection still requiring IV abx) drug therapy requiring intensive monitoring for toxicity (IV abx) Hussain Snyder MD Hospitalist, Internal Medicine [facility] [address] [phone] To contact, Voalte (preferred) the First Call for the [facility] team listed or page the team pager above. This note was prepared in part using [employer] Dictation Software, please excuse any typographical/dictation errors that may have resulted from its use. Subjective No acute events overnight. Denies fevers, chills, chest pain, shortness of breath, abdominal pain,nausea, vomiting, diarrhea. Patient does not have any dysuria or urinary discomfort at this time.We discussed in length the plan including continued antibiotics, continued monitoring of her nutrition status, continue tapering of oxygen and she states understanding of this. We discussed the plan for placement when she is medically stable. I discussed with Maryse Eisenberg regarding conversationabout planning that was held on discharge from the ICU and it appears that the patient was accepting of/somewhat eager for placement as long as it was near her home, most likely an [place], [place]. However on my discussion with her she is not willing d/t have placement or home health. I discussed that we have concerns about her ability to care for herself at home at this time but she may improve but that we need to continue to evaluate. Notably, I had a long conversation with the patient about her nutrition needs. She states that herbiggest issue with p.o. intake is the taste of the food here. I encouraged her to eat despite taste as it would allow us to more fully understand her nutrition needs. I informed her that we would leave the Corpak in until we established her nutrition needs. She initially stated understanding of this, however approximately 15 minutes later she called me into her room as I was walking by and asked me about removal of the Corpak. ROS: A 10-point review of systems was completed. Objective: Physical Exam General: in NAD. VS reviewed. Pulmonary: CTAB CV: RRR. Tele review appears SVT Abdo: Non distended Skin: no visible rashes or significant lesions Neuro: Awake and alert. No focal neuro deficits. Psych: Appropriate mood and affect Lab Review Pertinent labs reviewed. Please refer to results section for further information. Radiology and other Diagnostics Review: Pertinent imaging and diagnostics reviewed Principal Problem: Septic shock (HCC) Active Problems: Encephalopathy Acute hypoxemic respiratory failure (HCC) Pleural effusion Tachycardia Pneumonia UTI (urinary tract infection) Bacteremia Atrial fibrillation with RVR (HCC) Malnutrition Details: Evaluation pending Loss of Subcutaneous Fat: Yes Moderate Orbital Muscle Wasting: Yes Mild Hindu, Interosseous Edema: Yes Mild Lower extremities Active Wounds: * Sinan Bowman RT - 04/27/2023 6:34 AM CDT RT Adult Assessment Note NAME:Silke Hansen :1945 AGE: 77 y.o. ADMISSION DATE: 04/22/2023 DAYS ADMITTED: LOS: 5 days RT Treatment Plan: Protocol Plan: Procedures Oscillating PEP Therapy: BID X 24 hours, then patient administered PAP: Place a nursing order for "IS Q1h While Awake" for any of Lung Expansion indicators Oxygen/Humidity: O2 to keep SpO2 > 92%, if on room air for > 24 hours and no other RT modalities are required, then D/C protocol SpO2: BID & PRN Additional Comments: Impressions of the patient: Pt resting comfortably, NAD, on 2L NC Intervention(s)/outcome(s): RT Eval Patient education that was completed: N/A Recommendations to the care team: Per Protocol Vital Signs: Pulse: 101 RR: 16 PER MINUTE SpO2: 94 % O2 Device: Nasal cannula Liter Flow: 2 Lpm O2%: Breath Sounds: Respiratory Effort: * Yanni Coe APRN-NP - 04/26/2023 3:32 PM CDT General Progress Note Name: Silke Hansen Today's Date: 04/26/2023 Admission Date: 04/22/2023 LOS: 4 days Assessment/Plan: Principal Problem: Septic shock (HCC) Active Problems: Encephalopathy Acute hypoxemic respiratory failure (HCC) Pleural effusion Tachycardia Pneumonia UTI (urinary tract infection) Bacteremia Atrial fibrillation with RVR (HCC) Assessment and Plan 77 yo F w/ PMH of HTN who presented to OSH on 04/20 w/ c/o rlq pain and chills for 1 day. Found to be in septic shock w/ a R ureter obstructive stone. Transferred to for further care. Upon arrival to she was off pressors but increasingly altered w/ increased O2 requirements. Taken to OR early 04/23 for cystoscopy w/ right ureteral stent placement and returned to MICU intubated. Developedshock after return from OR and pressor restarted. Extubated 04/23 and now off pressors. Developed Afib w/ RVR on 04/23. Cardiology consulted and rate controlled w/ Metoprolol. Corpak still in place but has started eating so will likely be able to remove soon. PT/OT currently recommending inpt. Transferred out of the ICU 04/26. Acute Hypoxic Respiratory Failure Bilateral Pleural Effusions DDx pneumonia vs pleural effusions - No baseline oxygen use - On admit to MICU requiring 8L NC - CXR: RLL infiltrates and bilateral pleural effusions - NT-pro-BNP 11,158 - Intubated for OR, extubated 04/23 - Currently 2L NC Plan - Wean oxygen as able for spO2 goal >92% - Diurese PRN for goal even to negative Septic Shock (resolved) Lactic Acidosis (resolved) NSTEMI, Type 2 Hx HTN - Likely 2/2 UTI - OSH echo 04/21: EF 50%, Paradoxical septal motion noted, AV leaflet thickening and trivial regurg.MV trivial regurg. TV w/ mild regurg. PV trivial regurg. PASP 30-35mmHg - Lactate peaked at 5.98 (at OSH) - Trop peaked at 2610 - Developed shock after return from OR; levo off since extubation 04/23 Plan - Restart [employer] Losartan at reduced dose 25mg daily (takes 50mg daily [employer]) Afib w/ RVR (new onset) LBBB - EKG on arrival to : ST w/ LBBB - Went into afib w/ RVR early 04/24, rates into 130s --> given 5mg metop w/ slight improvement in rate, but remained in fib - Diltiazem gtt initiated for rate control; weaned off 04/24 at ~2300 Plan - Cardiology consult - Continue [id number] BID - Continue therapeutic lovenox (started AM 04/24) - On discharge if patient still have persistent atrial fibrillation, will plan for cardioversion once recovered from infection Diarrhea - Cleared for regular diet, but Corpakplaced 04/24w/ drowsiness - Cdiff 04/25: negative - Last BM 04/26,multiple episodes of diarrhea Acute Encephalopathy, improved - Prior to intubation, was A&Ox4 but intermittently confused - thought 2/2 infection vs delirium - Returned from OR intubated/sedated, now extubated and off sedation since 04/23 - On exam: oriented x 4 but falls asleep during conversation - Ammonia 46, VBG CO2 of 53 Plan - Delirium precautions - Frequent neuro checks - holding TF today to and nurse will assess her eating. Will need rock crusher eval if nurse concerned for aspiration but tolerating liquids ok - if eating well today, will remove corpak tonight FEN - No IVF - lytes stable - regular diet PPx: Lovenox Code Status: Full Code Disposition: cont inpt care Barriers to discharge: PT/OT currently recommending inpt but this may change as her mental status has improved. Corpak still in place until taking adequate PO. If she requires placement will likely be in the [place], [place] area MARIANNE Cook, SENIOR PRICING ANALYST-C [phone] Total time spent was greater than 50 minutes in patient care today with greater than 50% spent reviewing the chart/records and coordinating care. Remainder of the time was spent examining the patient, discussing the care plan, and answering the patient's questions in the patient's room. Complexity of medical decision making is high because of the multi-system nature of disease process. Subjective Pt denies any complaints but reports she just feels tired. She wants to eat A comprehensive 14 point review of organ systems reviewed and was negative except for overall generalized fatigue Medications Scheduled Meds:cefTRIAXone (ROCEPHIN) IVP 2 g, 2 g, Intravenous, Q24H* enoxaparin (LOVENOX) syringe 80 mg, 1 mg/kg, Subcutaneous, BID furosemide (LASIX) injection 40 mg, 40 mg, Intravenous, ONCE insulin aspart (U-100) (NOVOLOG FLEXPEN U-100 INSULIN) injection PEN 0-6 Units, 0-6 Units, Subcutaneous, Q4H losartan (COZAAR) tablet 25 mg, 25 mg, Oral, QDAY metoprolol tartrate (LOPRESSOR) tablet 50 mg, 50 mg, Feeding Tube, BID Protein Supplement Packets, , SEE ADMIN INSTRUCTIONS, QDAY tamsulosin (FLOMAX) capsule 0.4 mg, 0.4 mg, Oral, QDAY after breakfast Continuous Infusions: Diet Critical Care Enteral Feeding Volume Based Infusion 45 mL/hr at 04/26/23 0800 PRN and Respiratory Meds:albuterol-ipratropium Q4H PRN, dextrose 50% (D50) IV PRN, hyoscyamine Q4H PRN, loperamide (IMODIUM) oral solution PRN, pancrelipase 20,880 Units/sodium bicarbonate 650 mg (KU CLOG DESTROYER) PRN (Website Designer from Rx), phenoL PRN Objective Vital Signs: Last Filed Vital Signs: 24 Hour Range BP: 148/68 (04/26 1447) Temp: 37 C (98.6 F) (04/26 1447) Pulse: 97 (04/26 1447) Respirations: 24 PER MINUTE (04/26 1447) SpO2: 94 % (04/26 1447) O2 Device: Nasal cannula (04/26 1447) O2 Liter Flow: 1 Lpm (04/26 1447) BP: (102-148)/(52-89) Temp: [36.5 C (97.7 F)-37.1 C (98.7 F)] Pulse: [89-116] Respirations: [20 PER MINUTE-30 PER MINUTE] SpO2: [93 %-97 %] O2 Device: Nasal cannula O2 Liter Flow: 1 Lpm Vitals: 04/24/23 1004 04/25/23 0413 04/26/23 0414 Weight: 80.3 kg (177 lb) 76.6 kg (168 lb 14 oz) 77.9 kg (171 lb 11.8 oz) Intake/Output Summary: (Last 24 hours) Intake/Output Summary (Last 24 hours) at 04/26/2023 1532 Last data filed at 04/26/2023 1500 Gross per 24 hour Intake 3648.8 ml Output 3005 ml Net 643.8 ml Stool Occurrence: 1 Physical Exam General: Drowsy but arouses easily to verbal stimuli, cooperative, no distress, appears stated age Head: Normocephalic, without obvious abnormality, atraumatic Eyes: Conjunctivae/corneas clear. PERRL Nose: Nares normal. Septum midline. Mucosa normal. No sinus drainage. Corpak in place Throat: Lips, mucosa and tongue normal. Teeth and gums normal Neck: Supple, symmetrical, trachea midline, no adenopathy Back: Symmetric, no curvature, ROM normal. Lungs: Clear to auscultation bilaterally Heart: Regular rate and rhythm, S1, S2 normal, no murmur Abdomen: Soft, non-tender. Bowel sounds normal. Extremities: Extremities normal, atraumatic, no cyanosis or edema Pulses: 2+ and symmetric in b/l radials Skin: Skin color, texture, turgor normal. No rashes or lesions Labs and POC Testing Reviewed Radiology and other Diagnostics Review: Pertinent radiology reviewed. JAVON Haddad Pager [phone] * Marleny Combs RN - 04/26/2023 2:15 PM CDT 0730: Assumed care of pt at this time; bedside safety check completed with BRADLEY Damian. 0800: Assessment completed per ICU doc flowsheet; pt alert, oriented x4, VS stable on 2 lpm NC. Pt tolerating ice chips and small sips of water. 1200: Assessment completed per ICU doc flowsheet; pt remains alert, oriented x4, VS remain stable on 1 lpm NC at this time. Family at bedside. 1230: Report given to BRADLEY Castaneda on [facility]. Pt to transfer to [facility]. 1400: Pt transferred to [facility] on bed via transportation officer. Pt stable on transfer off unit. * Rickie Castro RN - 04/26/2023 7:42 AM CDT 1929: Received report from off going RNDanielle. Bedside safety check completed. Plan of care and orders reviewed. 1999: Assessment completed, see doc flowsheets for details. VSS, per trends. Safety precautions inplace. Niece at bedside given pt phone and will take home. [id number] approximately: Pt flipped into SVT with HR in 170-180s. Pt assessed, found to be asymptomatic. Pt unable to effectively do valsalva maneuver after education given. Pt flipped back into afibwith rates 90-110s spontaneously. EKG obtained. Gary Franco APRN notified of events, no new orders. 04/26 0000: Reassessment completed, see doc flowsheets for details. VSS, per trends. No acute changes from previous assessment. 0323: Critical phos 1.4 reported to Gary Franco APRN. 0400: Reassessment completed, see doc flowsheets for details. VSS, per trends. No acute changes from previous assessment 0730: Hand off report to Marleny HUERTA. * Desiree Ross APRN-CHIEF DATA OFFICER - 04/26/2023 7:28 AM CDT Critical Care Progress Note Silke Hansen Today's Date: 04/26/2023 Admission Date: 04/22/2023 LOS: 4 days Principal Problem: Septic shock (HCC) Active Problems: Encephalopathy Acute hypoxemic respiratory failure (HCC) Pleural effusion Tachycardia Pneumonia UTI (urinary tract infection) Bacteremia Atrial fibrillation with RVR (HCC) Assessment/Plan: Brief Hospital Course: Silke Hansen is a 77 y.o. female with a PMH of HTN. Presented to OSH 04/20 d/t RLQ pain & chills x1 day. Found to be tachycardic, febrile, & hypotensive with lactate 5.98. Shock refractory to IVF and started on pressor. CT abd/pelvis w/ obstructive stone in R ureter and transferred to [facility] 04/22 for Urology consult. On arrival to MICU, was hemodynamically stable off pressor, but found to have intermittent AMS and requiring increasing amounts of oxygen. Taken to OR early 04/23 for cystoscopy w/ right ureteral stent placement and returned to MICU intubated. Developed shock after return from OR and pressor restarted. Infectious w/u in process, but suspect shock from urological source. OSH blood cultures w/ klebiella oxytoca, remains on abx. Extubated 04/23, now off pressor. Developed afib w/ RVR overnight 04/23-04/24, Cardiology consulted. Rate controlled on metoprolol, though remains in afib. Now stable for floor. NEURO: Acute Encephalopathy - Prior to intubation, was A&Ox4 but intermittently confused - thought 2/2 infection vs delirium - Returned from OR intubated/sedated, now extubated and off sedation since 04/23 - On exam: oriented x 4 but falls asleep during conversation PLAN - Check ammonia, VBG - Delirium precautions - Frequent neuro checks PULM: Acute Hypoxic Respiratory Failure Bilateral Pleural Effusions DDx pneumonia vs pleural effusions - No baseline oxygen use - On admit to MICU requiring 8L NC - CXR: RLL infiltrates and bilateral pleural effusions - NT-pro-BNP 11,158 - Intubated for OR, extubated 04/23 - I/O: -927mL/24hr (w/ 80mg lasix), net -3.3L since admit - Currently 2L NC PLAN - Wean oxygen as able for spO2 goal > 92% - Diurese PRN for goal even to negative CV: Septic Shock (resolved) Lactic Acidosis (resolved) NSTEMI, Type 2 Hx HTN - Likely 2/2 UTI - OSH echo 04/21: EF 50%, Paradoxical septal motion noted, AV leaflet thickening and trivial regurg.MV trivial regurg. TV w/ mild regurg. PV trivial regurg. 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 [employer] MEMBER Losartan at reduced dose 25mg daily (takes 50mg daily MODULAR [employer]BER) Afib w/ RVR (new onset) LBBB - EKG at OSH w/ LBBB - EKG on arrival to : ST w/ LBBB - Went into afib w/ RVR early 04/24, rates into 130s --> given 5mg metop w/ slight improvement in rate, but remained in fib - Diltiazem gtt initiated for rate control; weaned off 04/24 at ~2300 - HR 90-100's (afib) PLAN - Cardiology consult - Continue metop 50mg BID - Goal HR < 110 - Continue therapeutic lovenox (started AM 04/24) - On discharge if patient still have persistent atrial fibrillation, will plan for cardioversion once recovered from infection GI: Diarrhea - Cleared for regular diet, but Corpak placed 04/24 w/ drowsiness - Cdiff 04/25: negative - Last BM 04/26, multiple episodes of diarrhea PLAN - Will assess PO intake & consider removal of corpak if mental status improved & PO intake adequate - Continue TF - Regular diet - PRN loperamide - Daily CMP RENAL: - Baseline Cr unknown - On admit at : Cr 0.77, BUN 21, CO2 18 - UA w/ uric acid crystals - 04/26: Cr 0.62, BUN 33, CO2 29, Na 146 - UOP 3.9L - I/O as above PLAN - Continue FWF 100mL q 2hr - Strict I&Os - Daily chemistry Obstructing Uretal Stones - OSH CT abd/pelvis: w/ obstructive stone in R ureter - S/p uretal stent placement 04/23 - Intraop noted large cystocele and bladder stones consistent with poor bladder emptying PLAN - Urology consulted - Maintain benson per urology: evidence that pt does not empty bladder well at baseline. Will not trial of void at discharge; maintain benson through discharge - Urology will follow peripherally and arrange definitive treatment plan when patient is nearer to discharge, no urologic intervention at this time - Levsin 0.125mg Q4H PRN and flomax 0.4mg daily ENDO: - BG 177-214 - Continue LDCF ID: Klebsiella Bacteremia - On admit to OSH: WBC 5.6, Temp 104F - MRSA nasal swab, C-Diff negative at [address] - OSH UA: +1 Leuks - Urine cx 04/22: negative - Intraop urine cx 04/23: negative - OSH Blood cx 04/20: Klebsiella oxytoca - amp resistant, otherwise susceptible - Blood cx 04/22: NGTD - Blood cx 04/23: NGTD - COVID-19, flu/RSV, MRSA PCR negative - Sputum 04/23: no organisms on GS, cx NGTD - WBC 13.8; afebrile PLAN - Continue ceftriaxone (abx started 04/22, day 5) HEME: - Hgb 11.7, plt 248 PLAN - Daily CBC Prophylaxis Review: Lines: Peripheral Line Tubes: Corpak, Benson Insulin: Yes VTE ppx: Lovenox; SCDs GI ppx: Not indicated PT/OT: Yes Code status: Full Disposition: Floor Patient seen and discussed with Dr. Joni Ross APRN-WENDY Pulmonary/Critical Care Pager [phone] 04/26/2023 team pager [phone] __ Subjective: Silke Hansen is a 77 y.o. female who is lethargic but oriented. She slept well overnight. The corpak is not bothering her and she has been drinking water. Denies shortness of breath, abdominal pain. ROS: Gen - No fever Resp - No dyspnea, cough CV - No chest pain GI - No n/v/d/c, abd pain Skin - No rash Objective: Medications: Scheduled Meds:cefTRIAXone (ROCEPHIN) IVP 2 g, 2 g, Intravenous, Q24H* enoxaparin (LOVENOX) syringe 80 mg, 1 mg/kg, Subcutaneous, BID insulin aspart (U-100) (NOVOLOG FLEXPEN U-100 INSULIN) injection PEN 0-6 Units, 0-6 Units, Subcutaneous, Q4H metoprolol tartrate (LOPRESSOR) tablet 50 mg, 50 mg, Feeding Tube, BID potassium phosphate 24 mmol in dextrose 5% (D5W) 500 mL IVPB, 24 mmol, Intravenous, ONCE Protein Supplement Packets, , SEE ADMIN INSTRUCTIONS, QDAY tamsulosin (FLOMAX) capsule 0.4 mg, 0.4 mg, Oral, QDAY after breakfast Continuous Infusions: Diet Critical Care Enteral Feeding Volume Based Infusion 66 mL/hr at 04/26/23399 PRN and Respiratory Meds:albuterol-ipratropium Q4H PRN, dextrose 50% (D50) IV PRN, hyoscyamine Q4H PRN, loperamide (IMODIUM) oral solution PRN, pancrelipase 20,880 Units/sodium bicarbonate 650 mg (KU CLOG DESTROYER) PRN (Website Designer from Rx), phenoL PRN Vital Signs: Last Filed Vital Signs: 24 Hour Range BP: 126/83 (04/26 400) Temp: 36.6 C (97.9 F) (04/26 400) Pulse: 98 (04/26 648) Respirations: 25 PER MINUTE (04/26 648) SpO2: 95 % (04/26 648) O2 Device: Nasal cannula (04/26 648) O2 Liter Flow: 2 Lpm (04/26 648) BP: (102-138)/(52-89) Temp: [36.5 C (97.7 F)-37.1 C (98.7 F)] Pulse: [89-116] Respirations: [20 PER MINUTE-31 PER MINUTE] SpO2: [93 %-99 %] O2 Device: Nasal cannula O2 Liter Flow: 2 Lpm Vitals: 04/24/23 1004 04/25/23 0413 04/26/23 0414 Weight: 80.3 kg (177 lb) 76.6 kg (168 lb 14 oz) 77.9 kg (171 lb 11.8 oz) Intake/Output Summary: (Last 24 hours) Intake/Output Summary (Last 24 hours) at 04/26/2023 0729 Last data filed at 04/26/2023 0600 Gross per 24 hour Intake 3003 ml Output 3930 ml Net -927 ml Physical Exam: General: Lethargic, cooperative, no distress, appears stated age EENT: PERRL. Moist mucous membranes Lungs: Clear to auscultation bilaterally; no wheeze or rhonchi Heart: Regular rate and rhythm, S1, S2 normal, no murmur Abdomen: Soft, non-tender, non-distended. Bowel sounds + Extremities: Extremities warm, well-perfused, no cyanosis. +1 lower extremity edema Peripheral pulses 2+ and symmetric, all extremities Skin: Skin color normal. No rashes on exposed skin. Neurologic: Grossly intact, orientedx3. Normal strength. Artificial airway: None Ventilator/ Respiratory Therapy: No Vent weaning trial: Not applicable Laboratory: LABS: Recent Labs 04/24/237 04/24/23 1225 04/25/231 04/25/23 1631 04/26/23216 NA 144 144 146 148* 146 K 3.9 3.9 3.6 4.0 4.0 CL 111* 110 111* 110 109 CO2 24 24 26 30 29 GAP 9 10 9 8 8 BUN 31* 34* 37* 37* 33* CR 0.72 0.90 0.81 0.73 0.62 GLU 132* 146* 194* 219* 150* CA 8.4* 8.2* 8.2* 8.6 8.6 ALBUMIN 3.4* -- 3.2* -- 3.3* MG 2.5 -- 2.4 -- 2.1 PO4 2.1 -- 1.9* -- 1.4* HGBA1C -- -- -- -- 6.4* Recent Labs 04/24/2333604/25/2321004/26/23216 WBC 35.6* 22.7* 13.8* HGB 11.2* 11.7* 11.7* HCT 33.9* 34.6* 35.5* PLTCT 184 215 248 AST 31 29 24 ALT 35 38 31 ALKPHOS 55 44 53 Estimated Creatinine Clearance: 64.4 mL/min (based on SCr of 0.62 mg/dL). Vitals: 04/24/23 1004 04/25/23 0413 04/26/23 041 Weight: 80.3 kg (177 lb) 76.6 kg (168 lb 14 oz) 77.9 kg (171 lb 11.8 oz) No results for input(s): "PHART", "PO2ART" in the last 72 hours. Invalid input(s): "PC02A" Radiology and Other Diagnostic Procedures Review: Reviewed Associated attestation - Rasta Quinones MD - 04/26/2023 4:58 PM CDT ATTESTATION I personally interviewed and examined the patient. I have reviewed the history, physical, impression and plan outlined by the Nurse Practitioner. The patient presents with (HPI) septic shock 2/2 klebsiella bacteremia On examination there is NAD, no increased WOB, regular rate, abd soft, trace BLE edema My impression is Resolved septic shock 2/2 klebsiella bacteremia, improved encephalopathy, improvedacute hypoxemic respiratory failure, afib My plan is Continue ceftriaxone Continue metop for afib PT/OT Stable for transfer to the floor Staff name: Rasta Quinones MD Date: 04/26/2023 * Hussain Colvin MD - 04/25/2023 10:55 AM CDT Urology Consult Note Assessment: Silke Hansen is a 77 y.o. female with hx of HTN, who is currently admitted with pneumonia and urosepsis secondary to 9mm RIGHT ureteral stone s/p R stent on 04/23. Notably, patient also had a largecystocele and bladder stones consistent with poor bladder emptying. 04/25-afebrile intermittently tachy, O2 requirement improving. WBC 22. Continue to maximally decompress with benson and stent. Plan: - Maintain indwelling benson and ureteral stent > Can add levsin 0.125mg Q4H PRN and flomax 0.4mg daily for stent discomfort > Evidence that pt does not empty bladder well at baseline, will not trial of void at discharge,please maintain benson through discharge - Abx per primary > Additional cultures negative - Urology will follow peripherally and arrange definitive treatment plan when patient is nearer to discharge, no urologic intervention this admission - Please call with questions Patient discussed with Dr. Phillips, who directed plan of care. Hussain Colvin MD Urology Resident S: AO2 (place, person) Denies fevers. Denies flank pain. Denies SOB (on HFNC) O: Vitals: 04/25/23 0700 04/25/23 0800 04/25/23 0900 04/25/23 1000 BP: 131/70 119/73 122/64 108/59 BP Source: Arm, Right Upper Arm, Right Upper Arm, Right Upper Arm, Right Upper Pulse: 103 111 110 92 Temp: 36.7 C (98.1 F) SpO2: 97% 93% 99% 96% O2 Percent: O2 Device: High flow nasal cannula High flow nasal cannula High flow nasal cannula High flow nasal cannula O2 Liter Flow: 5 Lpm 5 Lpm 3 Lpm 3 Lpm Weight: Height: Intake/Output Summary (Last 24 hours) at 04/25/2023 1055 Last data filed at 04/25/2023 1000 Gross per 24 hour Intake 1103.44 ml Output 2615 ml Net -1511.56 ml Physical Exam: General: NAD, resting comfortably in bed Head: Normocephalic, atraumatic Lungs: nonlabored on HFNC Abdomen: Soft, nontender, nondistended. Extremities: no cyanosis or edema Skin:warm and dry, no rashes or lesions : benson with cloudy output * Danielle Mata RN - 04/25/2023 10:05 AM CDT 0800: assume pt. Care @ this time. Bedside check performed, plan of care reviewed, physical assessment complete. See ICU flowsheets. K+ replaced, see MAR. Pt. tolerating sips of water this AM, but mentation and alertness waxing/waning. 1200: assessment complete per assessment guidelines 1600: assessment complete per assessment guidelines Pt. C-diff negative this shift, see results. Lasix given x1, see MAR. PICC d/c'ed this shift d/t no indication for use. Pt. Tolerated d/c well, no issues @ site. Pt. On 2 LNC now. No other events to note. Approx. 1930: bedside check report done with oncoming RN, report given. * Marisol Casey, OT - 04/25/2023 10:01 AM CDT OCCUPATIONAL THERAPY ASSESSMENT NOTE Name: Silke Hansen : 1945 Age: 77 y.o. Admission Date: 04/22/2023 LOS: 3 days Date of Service: 04/25/2023 Mobility Progressive Mobility Level: Sit on edge of bed Level of Assistance: Assist X2 Assistive Device: Hand Held Activity Limited By: Weakness;Mental Status Variability Subjective Pertinent Dx per Physician: PMH of HTN presented initially to urgent care clinic 04/20 d/t RLQ pain and chills x1 day. Presented to OSH 04/20 and found to be tachycardic, febrile, and hypotensive with lactic acidosis of 5.98. Shock refractory to IVF and started on pressor. CT abd/pelvis showed obstructive stone in R ureter and transferred to [facility] 04/22 for Urology consult. On arrival to MICU, was hemodynamically stable off pressor, but found to have intermittent AMS and requiring increasing amounts of oxygen. Taken to OR early 04/23 for cystoscopy w/ right ureteral stent placement and returned to MICU intubated. Developed shock after return from OR and started on pressor. Infectious w/u in process, but suspect shock from urological source. OSH blood cultures + GNR, remains on abx. Extubated 04/23, now off pressor. Developed afib w/ RVR overnight 04/23-04/24, starting AC and diltiazemdrip. Continue ICU care Precautions: Falls;Isolation;Vision/Cognitive Deficits Pain / Complaints: Patient agrees to participate in therapy Comments: Pt supine in bed as therapists enter and exit. All needs in reach. Vitals stable with activity and no change in HR or BP with activity. Objective Psychosocial Status: Willing and Cooperative to Participate Persons Present: Family Home Living Type of Home: House Home Layout: One Level Bathroom Shower / Tub: Tub/Shower Unit Bathroom Toilet: Standard Comment: Ramped entrance. Prior Function Level Of [place]: Independent with ADLs and functional transfers;Independent with homemaking w/ ambulation Lives With: Spouse Receives Help From: None Needed Other Function Comments: Enjoys spending time with family and grandchildren. 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 Enjoys going to [employer] and working on restoring furniture. She is typically extremely active and "on the go." Vision Comment: Has difficulty maintaining eye opening and alertness today ADL's Toileting Assist: Total Assist Toileting Deficits: (+benson; placed on bed nichole at end of session.) ADL Mobility Bed Mobility: Supine to Sit: Minimal assist Bed Mobility: Sit to Supine: Minimal assist Bed Mobility Comments: Increased cuing for motor processing 2/2 decreased sustained alertness and attention to task. End of Activity Status: In bed Transfer Comments: At EOB, falls asleep quickly and benefits from cuing. Asks for water- provided education re: importance of waiting on this due to O2. Sitting Balance: Standby assist Activity Tolerance Endurance: 2/5 Tolerates 10-20 Minutes Exercise w/Multiple Rests Cognition Overall Cognitive Status: Impaired Comprehension: (Impaired 2/2 fatigue) Expression: Increased Time for Expression Social Interaction: Increased Time to Adjust Problem Solving: Decreased Judgment/Safety Attention: Somnolent (Wakes with cuing. I anticipate she has experienced poor sleep quality during this admission and is +delirium.) ROM R UE ROM: WFL L UE ROM: WFL Coordination: Mild Delay (2/2 fatigue) Grasp: Bilateral Grasp Functional for Activity Sensory Overall Sensory: Pt Perceives Pressure in Both UEs in Gross Exam UE Strength / Tone Strength Comments: Would benefit from further assessment. Education Persons Educated: Patient Barriers To Learning: Decreased Alertness Interventions: Repetition of Instructions;Physical Cueing Teaching Methods: Verbal Instruction Patient Response: Verbalized Understanding Topics: Role of OT, Goals for Therapy Goal Formulation: With Patient/Family Assessment Assessment: Decreased ADL Status;Decreased Endurance;Decreased Self-Care Trans;Decreased High-LevelADLs;Decreased Cognition;Decreased Safe/Judg during ADL Prognosis: Good;w/Cont OT s/p Acute Discharge;Pt Remains in ICU/Critical Care Goal Formulation: Patient AM-PAC 6 Clicks Daily Activity Inpatient Putting on and taking off regular lower body clothes: A Lot Bathing (Including washing, rinsing, drying): Total Toileting, which includes using toilet, bedpan, or urinal: A Lot Putting on and taking off regular upper body clothing: A Lot Taking care of personal grooming such as brushing teeth: A Lot Eating meals: Total Daily Activity Raw Score: 10 Standardized (T-scale) Score: 27.31 Plan OT Frequency: 5x/week OT Plan for Next Visit: Sit to stand transfer assessment. Pivot to chair when appropriate. ADL Goals Patient Will Perform All ADL's: w/ Stand By Assist Functional Transfer Goals Pt Will Perform All Functional Transfers: w/ Stand By Assist OT Discharge Recommendations Recommendation: Inpatient setting Comments: Early rec- limited by lethargy and AMS. Therapist: Marisol Casey, P[facility]ROR/[facility]ma[facility] [id number] Date: 04/25/2023 * Elda Burroughs PT - 04/25/2023 10:01 AM CDT PHYSICAL THERAPY ASSESSMENT Name: Silke Hansen : 1945 Age: 77 y.o. Admission Date: 04/22/2023 LOS: 3 days Date of Service: 04/25/2023 Mobility Progressive Mobility Level: Sit on edge of bed Level of Assistance: Assist X2 Assistive Device: Hand Held Activity Limited By: Weakness;Mental Status Variability Subjective Significant hospital events: 77 y.o. female with a PMH of HTN presented initially to urgent care clinic 04/20 d/t RLQ pain and chills x1 day. Presented to OSH 04/20 and found to be tachycardic, febrile, and hypotensive with lactic acidosis. CT abd/pelvis showed obstructive stone in R ureter and transferred to [facility] 04/22 for Urology consult. On arrival to MICU, was hemodynamically stable off pressor, but found to have intermittent AMS and requiring increasing amounts of oxygen. Taken to OR early 04/23 for cystoscopy w/ right ureteral stent placement and returned to MICU intubated. Developed shock after return from OR and started on pressor. Extubated 04/23. Developed afib w/ RVR overnight 04/23 -04/24. Mental / Cognitive Status: Arousable;Lethargic;Cooperative;Follows Commands Persons Present: Occupational Therapist;Family;Nursing Staff Pain: Patient has no complaint of pain Pain Interventions: Patient agrees to participate in therapy;Patient assisted into position of comfort Comments: HR goal <120bpm, on 3L O2 NC Ambulation Assist: Independent Mobility in Community without Device Patient Owned Equipment: None Home Situation: Lives with Family Type of Home: House Entry Stairs: Ramp In-Home Stairs: Able to Live on One Level Comments: Patient lives with her who reports she was very active prior to admission. 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 ROM R UE ROM: WFL L UE ROM: WFL R LE ROM: WFL L LE ROM: WFL Strength Overall Strength: Generalized weakness Strength Comments: Would benefit from further assessment. Posture/Neurological Head Control: Independent Posture: No postural deviations Bed Mobility/Transfer Bed Mobility: Supine to Sit: Minimal Assist Bed Mobility: Sit to Supine: Minimal Assist End Of Activity Status: In Bed;Nursing Notified;Instructed Patient to Use Call Light;Instructed Patient to Request Assist with Mobility Balance Sitting Balance: Static Sitting Balance;Dynamic Sitting Balance;Standby Assist Activity/Exercise Sit Edge Of Bed: 7 minutes Sit Edge Of Bed Assist: Stand By Assist Comments: Patient tolerated sitting edge of bed for ~7min with standby assist. Required maximal assistance to scoot hips to edge of bed. Patient lethargic throughout session, had difficulty keeping eyes open. BP WNL at edge of bed. Able to extend knees bilaterally. Patient remained lethargic and returned to supine with minimal assist. HR remained under goal throughout session. Education Persons Educated: Patient/Family Patient Barriers To Learning: Decreased Alertness Interventions: Repetition of Instructions Teaching Methods: Verbal Instruction Patient Response: Verbalized Understanding;More Instruction Required Topics: Plan/Goals of PT Interventions;Mobility Progression;Safety Awareness;Up with Assist Only;Importance of Increasing Activity;Recommend Continued Therapy Assessment/Progress Impaired Mobility Due To: Decreased Strength;Decreased Activity Tolerance;Medical Status Limitation Assessment/Progress: Should Improve w/ Continued PT AM-PAC 6 Clicks Basic Mobility Inpatient Turning from your back to your side while in a flat bed without using bed rails: A Little Moving from lying on your back to sitting on the side of a flat bed without using bedrails : A Little Moving to and from a bed to a chair (including a wheelchair): A Lot Standing up from a chair using your arms (e.g. wheelchair, or bedside chair): A Lot To walk in hospital room: A Lot Climbing 3-5 steps with a railing: Total Basic Mobility Inpatient Raw Score: 13 Standardized (T-scale) Score: 33.99 Goals Goal Formulation: With Patient Time For Goal Achievement: 5 days Patient Will Go Supine To/From Sit: w/ Stand By Assist Patient Will Transfer Sit to Stand: w/ Stand By Assist Patient Will Ambulate: Greater than 200 Feet, w/ Walker, w/ Stand By Assist Plan Treatment Interventions: Mobility Training;Strengthening;Balance Activities;Endurance Training Plan Frequency: 5 Days per Week PT Plan for Next Visit: Progress independence with bed mobility. Up to chair and trial gait next visit. PT Discharge Recommendations Recommendation: Inpatient setting (early recommendation - may progress quickly with improved mentalstatus and alertness) Patient Currently Requires Physical Assist With: All mobility Therapist Elda Burroughs PT, DPT Date 04/25/2023 * Rickie Castro RN - 04/25/2023 7:54 AM CDT 1930: Received report from off going RNBarbara. Bedside safety check completed. Plan of care and orders reviewed. 1999: Assessment completed, see doc flowsheets for details. VSS, per trends. Safety precautions in place. All lines in place without complications. TF initiated. 2245: Dilt gtt titrated off. 04/25 0000: Reassessment completed, see doc flowsheets for details. VSS, per trends. No acute changes from previous assessment. 0400: Reassessment completed, see doc flowsheets for details. VSS, per trends. No acute changes from previous assessment 0730: Hand off report to Danielle HUERTA. * Briana Noel MD - 04/25/2023 6:07 AM CDT Pulmonary / Critical Care Progress Note Silke Hansen Today's Date: 04/25/2023 Admission Date: 04/22/2023 LOS: 3 days Principal Problem: Septic shock (HCC) Active Problems: Encephalopathy Acute hypoxemic respiratory failure (HCC) Pleural effusion Tachycardia Pneumonia UTI (urinary tract infection) Bacteremia Atrial fibrillation with RVR (HCC) Brief Hospital Course: Silke Hansen is a 77 y.o. female with a PMH of HTN presented initially to urgent care clinic / RLQ pain and chills x1 day. Presented to OSH 04/20 and found to be tachycardic, febrile, and hypotensive with lactic acidosis of 5.98. Shock refractory to IVF and started on pressor. CT abd/pelvisshowed obstructive stone in R ureter and transferred to [facility] 04/22 for Urology consult. On arrival to MICU, was hemodynamically stable off pressor, but found to have intermittent AMS and requiring increasing amounts of oxygen. Taken to OR early 04/23 for cystoscopy w/ right ureteral stent placement and returned to MICU intubated. Developed shock after return from OR and started on pressor, now weaned off. OSH blood cultures + Klebsiella oxytoca, remains on abx. Extubated 04/23, now off pressor. Developed afib w/ RVR overnight 04/23-04/24, Cardiology consulted. Rate controlled on metoprolol, though remains in afib. Now stable for floor. Assessment/Plan: NEURO: Acute encephalopathy - Prior to intubation, was A&Ox4 but intermittently confused - thought 2/2 infection vs delirium - Returned from OR intubated/sedated, now extubated and off sedation - On exam more alert today PLAN - Delirium precautions - Frequent neuro checks PULM: Acute Hypoxic Respiratory Failure Bilateral Pleural Effusions On mechanical ventilation DDx pneumonia vs pleural effusions - No baseline oxygen use; required 2L at OSH 04/20 - On arrival to MICU, oxygen up to 8L NC - ABG on arrival to [facility]: 7.29 / 38 / 82 - CXR: RLL infiltrates and bilateral pleural effusions - NT-pro-BNP 11,158 - Extubated 04/23 - Currently on 5L NC - I/O: net neg 1.6L / 24h; net neg 2.5L / admit PLAN - Wean oxygen as able for spO2 goal > 92% - Diuresis goal net neg 1L - repeat 40mg lasix now CV: Septic Shock (resolved) Lactic acidosis (resolved) - likely 2/2 UTI - At OSH: Trop I 8.663 on 04/20, LA 5.98 ->3.69 -> 5.29 ->3.37 - OSH echo 04/21: EF 50%, Paradoxical septal motion noted, AV leaflet thickening and trivial regurg.MV trivial regurg. TV w/ mild regurg. PV trivial regurg. 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 GI: Diarrhea - Cleared for regular diet, but placed Corpak w/ drowsiness 04/24 - Continue TF via [employer] - [facility] 04/24 - multiple episodes diarrhea - C diff negative PLAN - Add PRN loperamide - Daily CMP RENAL: - Baseline Cr unknown - At OSH: Cr 0.75-1, BUN 14, CO2 17 - On admit at : Cr 0.77, BUN 21, CO2 18 - UA w/ uric acid crystals - 04/25: Cr 0.81, CO2 26 - UOP 2.6L / 24h PLAN - Urology following, maintain benson - Check UA - Strict I&Os - Daily chemistry Obstructing Uretal Stones - s/p uretal stent placement 04/23 - Intraop noted large cystocele and bladder stones consistent with poor bladder emptying - Levsin 0.125mg Q4H PRN and flomax 0.4mg daily ENDO: Hyperglycemia - BGL 194 on AM labs - Start LDCF w/ TF - Check A1c ID: Klebsiella Bacteremia - OSH WBC 5.6, Temp 104F -> 04/22 WBC 39.5 - Initially started on Zosyn 04/20 and changed to Ceftriaxone 04/21 - MRSA nasal swab, C-Diff negative at [address] - OS UA: +1 Leuks - OSH Blood cx 04/20: Klebsiella oxytoca - amp resistant, otherwise susceptible - On admit to [facility]: WBC 36.7, Temp 36.4C - COVID-19, flu/RSV PCR negative - Blood cx 04/22: NGTD - Sputum 04/23: no organisms on GS, cx NGTD - Urine cx 04/22: negative - Intraop urine cx 04/23: negative - MRSA screen negative - Procal 30.8 - WBC 22.7; afebrile PLAN - Continue ceftriaxone HEME: - hgb 11.7, plt 215 PLAN - Daily CBC PPX: Lines: Peripheral Line and PICC --> remove PICC today Drains/Tubes: Benson DVT: Lovenox GI: Not indicated PT/OT: Yes Insulin: No Code status: FULL Disposition: Stable to transfer to floor Pt seen & discussed w/ Dr. Sadie Lombardi APRN Pulm/Critical Care Available on Voalte Pager [phone] 04/25/2023 M2 team pager (2nd call/nights) [phone] ATTESTATION I personally interviewed and examined the patient. I have reviewed the history, physical, impression and plan outlined by the Nurse Practitioner. The patient presents with being much more oriented; worked with PT this morning On examination: Gen: awake Chest: diminished BS in the bases CV: irregular Ab: soft/nontender Ext: mild bilateral edema My impression: -Resolved septic shock- --Bacteremia with Klebsiella --improving STEPAN --improved encephalopathy --a-fib My plan is: --continue metoprolol for a-fib --continue ceftriaxone --PT/OT --OK to transfer to floor when bed available. Staff name: Briana Noel MD Date: 04/26/2023 __ Subjective: Silke Hansen is a 77 y.o. female who is supine in bed with family at bedside. Just finished working with PT/OT and feels worn out. Overall feels better than prior, but still feeling very thirsty. No new issues this morning. Objective: Medications: Scheduled Meds:cefTRIAXone (ROCEPHIN) IVP 1 g, 1 g, Intravenous, Q24H* enoxaparin (LOVENOX) syringe 80 mg, 1 mg/kg, Subcutaneous, BID metoprolol tartrate tablet 25 mg, 25 mg, Feeding Tube, BID potassium chloride in water IVPB 10 mEq, 10 mEq, Intravenous, Q2H* Followed by potassium chloride in water IVPB 10 mEq, 10 mEq, Intravenous, Q2H* potassium phosphate 16 mmol in dextrose 5% (D5W) 250 mL IVPB, 16 mmol, Intravenous, ONCE Protein Supplement Packets, , SEE ADMIN INSTRUCTIONS, QDAY tamsulosin (FLOMAX) capsule 0.4 mg, 0.4 mg, Oral, QDAY after breakfast Continuous Infusions: Diet Critical Care Enteral Feeding Volume Based Infusion 45 mL/hr at 04/25/230 dilTIAZem (cardIZEM) 125 mg in sodium chloride 0.9% (NS) 125 mL IV drip (std conc) Stopped (04/24/235) PRN and Respiratory Meds:albuterol-ipratropium Q4H PRN, hyoscyamine Q4H PRN, pancrelipase 20,880 Units/sodium bicarbonate 650 mg ([facility] CLOG DESTROYER) PRN (Website Designer from Rx), phenoL PRN Vital Signs: Last Filed Vital Signs: 24 Hour Range BP: 119/65 (04/25 400) Temp: 36.6 C (97.9 F) (04/25 400) Pulse: 98 (04/25 400) Respirations: 29 PER MINUTE (04/25 400) SpO2: 96 % (04/25 400) O2 Device: High flow nasal cannula (04/25 400) O2 Liter Flow: 5 Lpm (04/25 400) Height: 160 cm (5' 3") (04/24 100) BP: (99-146)/(55-113) Temp: [36.4 C (97.5 F)-37.1 C (98.7 F)] Pulse: [82-128] Respirations: [9 PER MINUTE-32 PER MINUTE] SpO2: [89 %-100 %] O2 Device: High flow nasal cannula O2 Liter Flow: 5 Lpm Vitals: 04/24/23 0349 04/24/23 1004 04/25/23 0413 Weight: 80.4 kg (177 lb 4 oz) 80.3 kg (177 lb) 76.6 kg (168 lb 14 oz) Intake/Output Summary: (Last 24 hours) Intake/Output Summary (Last 24 hours) at 04/25/2023 0607 Last data filed at 04/25/2023 0600 Gross per 24 hour Intake 921.34 ml Output 2510 ml Net -1588.66 ml Physical Exam: General Appearance: No apparent distress, appears younger than stated age Skin: exposed skin intact HEENT: Normocephalic, EOMs intact, mucous membranes dry Chest and Lungs: Fine crackles to bilateral bases, no accessory muscle use Heart: RRR, no murmurs Abdomen: soft, nondistended, non tender to palpation Genitourinary: benson Extremities: warm, no peripheral edema, palpable pulses Neurologic: drowsy/oriented, follows commands, able to move all extremities Artificial airway: None Ventilator/ Respiratory Therapy: No Vent weaning trial: Per protocol Laboratory: LABS: Recent Labs 04/22/23183904/23/2334504/24/2333604/24/23 1225 04/25/23 0211 NA 140 144 144 144 146 K 4.3 4.1 3.9 3.9 3.6 CL 112* 112* 111* 110 111* CO2 18* 20* 24 24 26 GAP 10 12 9 10 9 BUN 21 24 31* 34* 37* CR 0.77 0.79 0.72 0.90 0.81 GLU 133* 150* 132* 146* 194* CA 8.4* 8.0* 8.4* 8.2* 8.2* ALBUMIN 3.6 3.2* 3.4* -- 3.2* MG 2.8* 2.5 2.5 -- 2.4 PO4 2.5 2.3 2.1 -- 1.9* Recent Labs 04/22/23183904/23/2334504/24/23 0337 04/25/23 0211 WBC 36.7* 33.3* 35.6* 22.7* HGB 11.8* 10.7* 11.2* 11.7* HCT 35.6* 32.1* 33.9* 34.6* PLTCT 157 163 184 215 PT 15.1* -- -- -- INR 1.4* -- -- -- PTT 39.3* -- -- -- AST 47* 39 31 29 ALT 35 34 35 38 ALKPHOS 47 57 55 44 Estimated Creatinine Clearance: 55.2 mL/min (based on SCr of 0.81 mg/dL). Vitals: 04/24/23 0349 04/24/23 1004 04/25/23 0413 Weight: 80.4 kg (177 lb 4 oz) 80.3 kg (177 lb) 76.6 kg (168 lb 14 oz) Recent Labs 04/23/23 0406 04/23/23 0618 PHART 7.31* 7.28* PO2ART 87 183* Radiology and Other Diagnostic Procedures Review: Reviewed * Barbara Melendez RN - 04/24/2023 2:48 PM CDT Small Bore Feeding Tube Placement Procedure was discussed with patient and family Time Placed: 1440 Size of Tube: 10Fr Length of Tube: 74 Physician's order received for feeding tube placement. Placed small bore feeding tube in patient's right nare with Cortrak tracking device. 2 attempt/s made to place tube. Tube advanced to 74 centimeter samantha on tube, and secured with nasal bridle to the patient's nares. BRADLEY Archibald and BRADLEY Santos at bedside to assist. Nurse to confirm correct tube placement via KUB with primary team physician. Procedure completed without complications. * Briana Noel MD - 04/24/2023 1:57 PM CDT Ms. Hansen is critically ill with the following: Name: Silke Hansen Admission Date: 04/22/2023 Principal Problem: Septic shock (HCC) Active Problems: Encephalopathy Acute hypoxemic respiratory failure (HCC) Pleural effusion Tachycardia Pneumonia UTI (urinary tract infection) Bacteremia I spent 43 minutes (excluding time spent performing or supervising any procedures and independent of the time spent by the CHIEF DATA OFFICER) providing and personally directing critical care services including: - systems review and physical examination - review of hemodynamic, respiratory, telemetry, laboratory, and imaging data - review of medications - management of fluids/electrolytes, antibiotics, sepsis protocol, gas exchange/NIPPV, diuresis, ICU prophylaxis, and ICU core measures - organization and coordination of care plan with the CHIEF DATA OFFICER and consultants - directing the formulation of the overall plan of care outlined above Exam: Gen: awake but confused Chest: diminished BS in the bases CV: irregular AB: soft/nontender Ext: bilateral mld edema Ms. Hansen remains critically ill with acute respiratory failure, sepsis, and a-fib with RVR, andmetabolic encephalopathy. She is awake but is confused. She went into a-fib with RVR last night, requiring metoprolol. Despite metoprolol, still having uncontrolled rate, so diltiazem started. Anticoagulation started last night as well. Cardiology following Will also plan for diuresis today with net negative at least one liter. GNR in her blood cultures from the outside hospital and will f/u identity/sensitivities. Continue zosyn. Cultures at our facility remain negative. Urology following. * Ryan Sousa OT - 04/24/2023 9:42 AM CDT OCCUPATIONAL THERAPY NOTE Name: Silke Hansen : 1945 Age: 77 y.o. Admission Date: 04/22/2023 LOS: 2 days Date of Service: 04/24/2023 Pt in A-fib and with HR parameters <120 bpm. Bedside RN okayed trailing chair mode in bed. Pt with HR around 125 bpm with intermittent 130s with getting pt properly positioned. Once in chair mode,pt's HR stable <120 bpm; RN aware of tolerance. PT/OT will continue to follow and provide intervention once medically appropriate. 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 Therapist: Ryan Sousa, OTR/L [id number] Date: 04/24/2023 * Barbara Melendez RN - 04/24/2023 8:27 AM CDT 0745: Assumed care of patient at this time. Bedside safety check performed with BRADLEY Bettencourt. Plan of care reviewed. Pt in Afib with rate 130's. MARIANNE Pablo rounding at bedside with verbal orders for 5 Metoprolol IV; low threshold for initiating Dilt gtt. 0800: Physical assessment completed, please see ICU flow sheet for details. Pt afebrile, afib on tele (HR 126- pushing 5 Metoprolol & obtaining EKG), SpO2 91% wearing 8L HFNC, normotensive. GCS 13, pt lethargic, orientedx3 requiring reorientation about specific hospital, denying pain. 1200: Physical reassessment completed, please see ICU flow sheet for details. VSS per trends. No acute changes noted. 1220: Noted widenening QRS on bedside monitor with increased tachycardia. EKG and BMP obtained. MARIANNE Lombardi to bedside with verbal orders to start dilt gtt and place corpak d/t persistent AMS. 1235: Corpak placed at bedside to 65cm. Pt began coughing and gagging on corpak, tube began coilingin mouth. Removed corpak and will re attempt. 1415: Initiating Diltazem gtt, see MAR for details. 1430: Cristela, RN and BRADLEY Santos to assist with placing corpak and bridle. See separate feeding tubeplacement note for details. 1600: Physical reassessment completed, please see ICU flow sheet for details. VSS per trends with Afib HR ranging 95-110 on Diltiazem gtt; see MAR. 1900: BSSC with BRADLEY Damian * Hussain Colvin MD - 04/24/2023 8:13 AM CDT Urology Consult Note Assessment: Silke Hansen is a 77 y.o. female with hx of HTN, who is currently admitted with pneumonia and urosepsis secondary to 9mm RIGHT ureteral stone s/p R stent on 04/23. Notably, patient also had a largecystocele and bladder stones consistent with poor bladder emptying. 04/24- repeat culture negative, afebrile but tachy, on HFNC. WBC 35. Continue to maximally decompress with benson and stent. Plan: - Maintain indwelling benson and ureteral stent > Can add levsin 0.125mg Q4H PRN and flomax 0.4mg daily for stent discomfort > Evidence that pt does not empty bladder well at baseline, may need PVRs at time of catheter removal - Abx per primary > Additional cultures negative - Urology will follow - Please call with questions Patient discussed with Dr. Phillips, who directed plan of care. Hussain Colvin MD Urology Resident S: Feeling better. Denies fevers. Denies flank pain. Denies SOB (on HFNC) O: Vitals: 04/24/23 0500 04/24/23 0600 04/24/23 0700 04/24/23 0800 BP: 99/66 112/76 111/71 116/69 BP Source: Arm, Right Upper Arm, Right Upper Arm, Right Upper Arm, Right Upper Pulse: 107 (!) 122 (!) 128 (!) 126 Temp: SpO2: 92% (!) 91% 92% (!) 91% O2 Percent: O2 Device: High flow nasal cannula High flow nasal cannula High flow nasal cannula High flow nasal cannula O2 Liter Flow: 7 Lpm 7 Lpm 8 Lpm 8 Lpm Weight: Height: Intake/Output Summary (Last 24 hours) at 04/24/2023 0813 Last data filed at 04/24/2023 0700 Gross per 24 hour Intake 581.62 ml Output 915 ml Net -333.38 ml Physical Exam: General: NAD, resting comfortably in bed Head: Normocephalic, atraumatic Lungs: nonlabored on HFNC Abdomen: Soft, nontender, nondistended. Extremities: no cyanosis or edema Skin:warm and dry, no rashes or lesions : benson with cloudy pink output * Rut Davis RN - 04/24/2023 7:03 AM CDT 1899: Beside safety check completed with RN. No concerns at this time. 1999: Initial assessment completed. Pt a&o x4, following commands, but lethargic. Pt on HFNC 7 Lpm, SpO2 >92%. Pt sinus tachy on monitor. All other VSS per pt trend. 04/24/2023 0000: Reassessment completed, see doc flow sheet for details. VSS per pt trend. No changes from previous assessment. 0400: Reassessment completed, see doc flow sheet for details. VSS per pt trend. No changes from initial assessment. [id number]: Pt sustaining Afib RVR, asymptomatic. Brian Vogel NP, to bedside. EKG obtained per orders. 5mg Metoprolol given, per provider orders. Pt 95-115's after administration, asymptomatic. 0700: Bedside shift report completed with oncoming RN. * Gabriela Lombardi APRN-WENDY - 04/24/2023 6:02 AM CDT Pulmonary / Critical Care Progress Note Silke Hansen Today's Date: 04/24/2023 Admission Date: 04/22/2023 LOS: 2 days Principal Problem: Septic shock (HCC) Active Problems: Encephalopathy Acute hypoxemic respiratory failure (HCC) Pleural effusion Tachycardia Pneumonia UTI (urinary tract infection) Bacteremia Atrial fibrillation with RVR (HCC) Brief Hospital Course: Silke Hansen is a 77 y.o. female with a PMH of HTN presented initially to urgent care clinic / RLQ pain and chills x1 day. Presented to OSH 04/20 and found to be tachycardic, febrile, and hypotensive with lactic acidosis of 5.98. Shock refractory to IVF and started on pressor. CT abd/pelvisshowed obstructive stone in R ureter and transferred to [facility] 04/22 for Urology consult. On arrival to MICU, was hemodynamically stable off pressor, but found to have intermittent AMS and requiring increasing amounts of oxygen. Taken to OR early 04/23 for cystoscopy w/ right ureteral stent placement and returned to MICU intubated. Developed shock after return from OR and started on pressor. Infectious w/u in process, but suspect shock from urological source. OSH blood cultures + GNR,remains on abx. Extubated 04/23, now off pressor. Developed afib w/ RVR overnight 04/23-04/24, starting AC and diltiazem drip. Continue ICU care Assessment/Plan: NEURO: Acute encephalopathy - Prior to intubation, was A&Ox4 but intermittently confused - thought 2/2 infection vs delirium - Returned from OR intubated/sedated, now extubated and off sedation - On exam lethargic, confused, easily reoriented. PLAN - Delirium precautions - Frequent neuro checks PULM: Acute Hypoxic Respiratory Failure Bilateral Pleural Effusions On mechanical ventilation DDx pneumonia vs pleural effusions - No baseline oxygen use; required 2L at OSH 04/20 - On arrival to MICU, oxygen up to 8L NC - ABG on arrival to : 7.29 / 38 / 82 - CXR: RLL infiltrates and bilateral pleural effusions - NT-pro-BNP 11,158 - Extubated 04/23 - Currently on 7-8L NC - I/O: net neg 200ml / 24h; net neg 800ml / admit PLAN - Wean oxygen as able for spO2 goal > 92% - Diuresis goal net neg 1L - give 40mg lasix now CV: Septic Shock (resolved) Lactic acidosis (resolved) - likely 2/2 UTI - At OSH: Trop I 8.663 on 04/20, LA 5.98 ->3.69 -> 5.29 ->3.37 - OSH echo 04/21: EF 50%, Paradoxical septal motion noted, AV leaflet thickening and trivial regurg.MV trivial regurg. TV w/ mild regurg. PV trivial regurg. PASP 30-35mmHg - On admit to : BP 121/60, HR 105 - hs Trop 2610 --> 1412 - LA 2.4 --> 1.7 - Developed shock after return from OR - Norepi off since extubation 04/23 Afib w/ RVR (new onset) - EKG at OSH w/ LBBB - EKG on arrival to : ST w/ LBBB - Went into afib w/ RVR early 04/24, rates into 130s --> given 5mg metop w/ slight improvement in rate, but remained in fib - HR 110-130s, SBP 110-120s PLAN - Cardiology consult - Start diltiaziem for rate control - Continue therapeutic lovenox (started AM 04/24) HTN - Holding MODULAR SET CREW MEMBER Losartan 50mg daily GI: - Cleared for regular diet, but placing Corpak w/ drowsiness - Start TF - Last BM 04/24 - Daily CMP RENAL: - Baseline Cr unknown - At OSH: Cr 0.75-1, BUN 14, CO2 17 - On admit at : Cr 0.77, BUN 21, CO2 18 - UA w/ uric acid crystals - 04/24: Cr 0.9, CO2 24 - UOP 1L / 24h PLAN - Urology following, maintain benson - Check UA - Strict I&Os - Daily chemistry Obstructing Uretal Stones - s/p uretal stent placement 04/23 - Intraop noted large cystocele and bladder stones consistent with poor bladder emptying - Levsin 0.125mg Q4H PRN and flomax 0.4mg daily ENDO: - BGL 132 on AM labs ID: Klebsiella Bacteremia - OSH WBC 5.6, Temp 104F -> 04/22 WBC 39.5 - Initially started on Zosyn 04/20 and changed to Ceftriaxone 04/21 - MRSA nasal swab, C-Diff negative at [facility] - OS UA: +1 Leuks - OSH Blood cx 04/20: Klebsiella oxytoca - amp resistant, otherwise susceptible - On admit to : WBC 36.7, Temp 36.4C - COVID-19, flu/RSV PCR negative - Blood cx 04/22: NGTD - Sputum 04/23: no organisms on GS, cx NGTD - Urine cx 04/22: negative - Intraop urine cx 04/23: negative - MRSA screen negative - Procal 30.8 - WBC 35.6; afebrile PLAN - Transition zosyn to ceftriaxone HEME: - hgb 11.2, plt 184 PLAN - Daily CBC PPX: Lines: Peripheral Line and PICC Drains/Tubes: Benson DVT: Lovenox GI: Not indicated PT/OT: Yes Insulin: No Code status: FULL Disposition: Continue ICU care - Pt critically ill with the above diagnoses. I spent 60 minutes providing critical care services including: reviewing outside records and obtaining history from the patient/family members performing a physical examination serially reviewing laboratory, telemetry, hemodynamic, oximetry, and respiratory data reviewing radiographic images reviewing medications managing fluids/electrolytes, antibiotics, ICU prophylaxis, and mechanical ventilation developing the overall plan of care. Pt seen & discussed w/ Dr. Sadie Lombardi APRN Pulm/Critical Care Available on Voalte Pager [phone] 04/24/2023 M2 team pager (2nd call/nights) [phone] __ Subjective: Silke Hansen is a 77 y.o. female who is supine in bed with eyes closed. Wakes easily to verbal stimulus, oriented to self/location. Denies pain, no chest pressure, no issues with SOA/cough. Falls back to sleep quickly once no longer stimulus. Objective: Medications: Scheduled Meds:enoxaparin (LOVENOX) syringe 80 mg, 1 mg/kg, Subcutaneous, BID metoprolol tartrate tablet 25 mg, 25 mg, Oral, BID piperacillin/tazobactam (ZOSYN) 4.5 g in sodium chloride 0.9% (NS) 100 mL IVPB (MB+)(EXTENDED INFUSION), 4.5 g, Intravenous, Q6H* tamsulosin (FLOMAX) capsule 0.4 mg, 0.4 mg, Oral, QDAY after breakfast Continuous Infusions: Diet Critical Care Enteral Feeding Volume Based Infusion dilTIAZem (cardIZEM) 125 mg in sodium chloride 0.9% (NS) 125 mL IV drip (std conc) 2.5 mg/hr (04/24/23 1417) PRN and Respiratory Meds:albuterol-ipratropium Q4H PRN, hyoscyamine Q4H PRN, pancrelipase 20,880 Units/sodium bicarbonate 650 mg ([facility] CLOG DESTROYER) PRN (Website Designer from Rx), phenoL PRN Vital Signs: Last Filed Vital Signs: 24 Hour Range BP: 110/65 (04/24 1300) Temp: 36.6 C (97.8 F) (04/24 1200) Pulse: 126 (04/24 1300) Respirations: 29 PER MINUTE (04/24 1300) SpO2: 99 % (04/24 1300) O2 Device: High flow nasal cannula (04/24 1300) O2 Liter Flow: 7 Lpm (04/24 1300) Height: 160 cm (5' 3") (04/24 1004) BP: (99-147)/(62-99) ABP: (116-129)/(49-57) Temp: [36.4 C (97.5 F)-37.5 C (99.5 F)] Pulse: [90-160] Respirations: [19 PER MINUTE-32 PER MINUTE] SpO2: [87 %-99 %] O2 Device: High flow nasal cannula O2 Liter Flow: 7 Lpm Vitals: 04/23/23 0400 04/24/23 0349 04/24/23 1004 Weight: 80.9 kg (178 lb 5.6 oz) 80.4 kg (177 lb 4 oz) 80.3 kg (177 lb) Intake/Output Summary: (Last 24 hours) Intake/Output Summary (Last 24 hours) at 04/24/2023 1436 Last data filed at 04/24/2023 1400 Gross per 24 hour Intake 554.51 ml Output 1505 ml Net -950.49 ml Physical Exam: General Appearance: No apparent distress, appears younger than stated age Skin: exposed skin intact HEENT: Normocephalic, EOMs intact, mucous membranes dry Chest and Lungs: Fine crackles to bilateral bases, no accessory muscle use Heart: RRR, no murmurs Abdomen: soft, nondistended, non tender to palpation Genitourinary: benson Extremities: warm, no peripheral edema, palpable pulses Neurologic: drowsy/oriented, follows commands, able to move all extremities Artificial airway: None Ventilator/ Respiratory Therapy: No Vent weaning trial: Per protocol Laboratory: LABS: Recent Labs 04/22/23 1840 04/23/23 0346 04/24/23 0337 04/24/23 1225 NA 140 144 144 144 K 4.3 4.1 3.9 3.9 CL 112* 112* 111* 110 CO2 18* 20* 24 24 GAP 10 12 9 10 BUN 21 24 31* 34* CR 0.77 0.79 0.72 0.90 GLU 133* 150* 132* 146* CA 8.4* 8.0* 8.4* 8.2* ALBUMIN 3.6 3.2* 3.4* -- MG 2.8* 2.5 2.5 -- PO4 2.5 2.3 2.1 -- Recent Labs 04/22/23 1840 04/23/236 04/24/23 033 WBC 36.7* 33.3* 35.6* HGB 11.8* 10.7* 11.2* HCT 35.6* 32.1* 33.9* PLTCT 157 163 184 PT 15.1* -- -- INR 1.4* -- -- PTT 39.3* -- -- AST 47* 39 31 ALT 35 34 35 ALKPHOS 47 57 55 Estimated Creatinine Clearance: 50.9 mL/min (based on SCr of 0.9 mg/dL). Vitals: 04/23/23 0400 04/24/23 0349 04/24/23 1004 Weight: 80.9 kg (178 lb 5.6 oz) 80.4 kg (177 lb 4 oz) 80.3 kg (177 lb) Recent Labs 04/23/23 0406 04/23/23 0618 PHART 7.31* 7.28* PO2ART 87 183* Radiology and Other Diagnostic Procedures Review: Reviewed * Marisol Casey OT - 04/23/2023 2:06 PM CDT OCCUPATIONAL and PHYSICAL THERAPY Patient is currently trialing for extubation- felt it was best to defer evaluations until after extubation. Occupational and Physical Therapy will continue to follow to evaluate and treat as appropriate. Marisol Casey OTR/L [id number] * Briana Noel MD - 04/23/2023 1:40 PM CDT Ms. Hansen is critically ill with the following: Name: Silke Hansen Admission Date: 04/22/2023 Principal Problem: Septic shock (HCC) Active Problems: Encephalopathy Acute hypoxemic respiratory failure (HCC) Pleural effusion Tachycardia Pneumonia UTI (urinary tract infection) Bacteremia I spent 40 minutes (excluding time spent performing or supervising any procedures and independent of the time spent by the CHIEF DATA OFFICER) providing and personally directing critical care services including: - systems review and physical examination - review of hemodynamic, respiratory, telemetry, laboratory, and imaging data - review of medications - management of fluids/electrolytes, antibiotics, sepsis protocol, gas exchange/NIPPV, diuresis, ICU prophylaxis, and ICU core measures - organization and coordination of care plan with the CHIEF DATA OFFICER and consultants - directing the formulation of the overall plan of care outlined above Exam: Gen: intubated and sedated Chest: diminished BS in the bases CV: RRR AB: soft/nontender Ext: no edema Ms. Hansen went urgently to the OR early this morning for a stent placement. She remained intubated after the procedure. We will plan for a PS trial after sedation is weaned to see if she can be extubated. She is still requiring low dose pressors, which we will wean as tolerated. Will plan to start tube feeds if she can't be extubated today. Renal function is stable and urology is following. Plan to keep I/O's net even to net negative today. Will continue zosyn for GNR bacteremia and follow up culture results from the other hospital. Discussed with family at bedside. * Rut Yip RN - 04/23/2023 10:47 AM CDT [id number]: Assumed care for pt at this time, bedside safety check completed and continuous infusions verified. Assessment completed. Pt is intubated and sedated with current RASS -4. Cough, gag, and corneal reflexes intact. 1025: Sedation paused at this time. 1200: Assessment completed. Pt is intubated with RASS -1. Pt is following commands but not opening eyes spontaneously. Cough, gag, and corneal reflexes intact. ~1410: Pt extubated to 7 Lpm high flow nasal cannula without difficulty. 1600: Assessment completed. Pt is lethargic and oriented x4 on 7 Lpm high flow nasal cannula. * Rut Davis RN - 04/23/2023 7:45 AM CDT 1900: Beside safety check completed with RN. No concerns at this time. 2000: Initial assessment completed. CHIEF DATA OFFICER, Brian Vogel present at bedside. Pt oriented to self and time.Pt restless and uncooperative. Pt sinus tachy and bp normotensive. Currently on HFNC 8 Lpm, expiratory wheezes present throughout. Blood cultures collected from L PICC per provider orders. 04/23/2023 0000: Reassessment completed, see doc flow sheet for details. VSS per pt trend. No acute changes from previous assessment. 0140: Pt increased to 12 Lpm NC. Brian Vogel, WENDY, informed of increase in pt O2 needs and restlessness. Precedex gtt and NIV started per provider orders. 0310: Urology at bedside and son, Bhaskar, contacted to review plan of care and consent received for procedure. 0400: Reassessment completed, see doc flow sheet for details. VSS per pt trend. Pt on NIV 40%, precedex gtt infusing at 0.3 mcg/kg. 0415: Urology team at bedside to transport pt to surgery. 0600: Pt arrived back to unit 65 and placed on MICU monitors. All gtt dose rate verified per SEP. Pt currently on V/AC 80%. RASS -5. Left radial ART line intact. Family present at bedside. 0700: Bedside shift report given to oncoming RN. * Gabriela Lombardi, SUPERINTENDENT COMMISSARY-CHIEF DATA OFFICER - 04/23/2023 5:58 AM CDT Pulmonary / Critical Care Progress Note Silke Hansen Today's Date: 04/23/2023 Admission Date: 04/22/2023 LOS: 1 day Principal Problem: Septic shock (HCC) Active Problems: Encephalopathy Acute hypoxemic respiratory failure (HCC) Pleural effusion Tachycardia Pneumonia UTI (urinary tract infection) Bacteremia Brief Hospital Course: Silke Hansen is a 77 y.o. female with a PMH of HTN presented initially to urgent care clinic /t RLQ pain and chills x1 day. Presented to OSH 04/20 and found to be tachycardic, febrile, and hypotensive with lactic acidosis of 5.98. Shock refractory to IVF and started on pressor. CT abd/pelvisshowed obstructive stone in R ureter and transferred to [facility] 04/22 for Urology consult. On arrival to MICU, was hemodynamically stable off pressor, but found to have intermittent AMS and requiring increasing amounts of oxygen. Taken to OR early 04/23 for cystoscopy w/ right ureteral stent placement and returned to MICU intubated. Developed shock after return from OR and started on pressor. Infectious w/u in process, but suspect shock from urological source. OSH blood cultures + GNR,remains on abx. Will extubate if able to meet parameters. Assessment/Plan: NEURO: Acute encephalopathy Sedation for MV - Prior to intubation, was A&Ox4 but intermittently confused - thought 2/2 infection vs delirium - Returned from OR intubated/sedated - Currently on propofol & fentanyl - On exam follows commands, appears comfortable PLAN - Daily SAT - Minimize sedation as able - Frequent neuro checks PULM: Acute Hypoxic Respiratory Failure Bilateral Pleural Effusions On mechanical ventilation DDx pneumonia vs pleural effusions - No baseline oxygen use; required 2L at OSH 04/20 - On arrival to MICU, oxygen up to 8L NC - ABG on arrival to [facility]: 7.29 / 38 / 82 - CXR: RLL infiltrates and bilateral pleural effusions - NT-pro-BNP 11,158 - MV currently v/AC 310 / 20 / 80% / 5 - ABG 7.28 / 43 / 183 - I/O: net neg 600ml s/p 20 mg lasix PLAN - Daily ABG while intubated - Daily SBT CV: Septic Shock Lactic acidosis (resolved) - likely 2/2 UTI - At OSH: Trop I 8.663 on 04/20, LA 5.98 ->3.69 -> 5.29 ->3.37 - EKG at OSH w/ LBBB: OSH Cardiology rec ASA and lovenox - OSH echo 04/21: EF 50%, Paradoxical septal motion noted, AV leaflet thickening and trivial regurg.MV trivial regurg. TV w/ mild regurg. PV trivial regurg. PASP 30-35mmHg - On admit to [facility]: BP 121/60, HR 105 - hs Trop 2610 --> 1412 - LA 2.4 --> 1.7 - Developed shock after return from OR - Norepi currently 0.05 PLAN - Tirate pressor for MAP goal > 65 - Trend trop q4hrs HTN - Holding MODULAR SET CREW MEMBER Losartan 50mg daily with shock GI: - Will start TF if unable to extubate - Last BM MODULAR SET CREW MEMBER - Daily CMP RENAL: - Baseline Cr unknown - At OSH: Cr 0.75-1, BUN 14, CO2 17 - On admit at [facility]: Cr 0.77, BUN 21, CO2 18 - UA w/ uric acid crystals - 04/23: Cr 0.79, CO2 20 - UOP 1.2L / 24h PLAN - Urology following, maintain benson - Check UA - Strict I&Os - Daily chemistry Obstructing Uretal Stones - s/p uretal stent placement 04/23 - Intraop noted large cystocele and bladder stones consistent with poor bladder emptying - Once extubated, will start levsin 0.125mg Q4H PRN and flomax 0.4mg daily ENDO: - BGL 150 ID: GNR Bacteremia UTI - OSH WBC 5.6, Temp 104F -> 04/22 WBC 39.5 - Initially started on Zosyn 04/20 and changed to Ceftriaxone 04/21 - MRSA nasal swab, C-Diff negative at [facility] - OSH UA: +1 Leuks - OSH Blood cx 04/20: GNR in both bottles - On admit to [facility]: WBC 36.7, Temp 36.4C - COVID-19, flu/RSV PCR negative - Blood cx 04/22: NGTD - Sputum 04/23: no organisms on GS, cx pending - UA 3+ leuks, moderate bacteria; cx pending - Intraop urine cx 04/23: pending - MRSA screen negative - Procal 30.8 - WBC 33.3; afebrile PLAN - Continue zosyn - DC vanc - Follow blood cx, may need to dc PICC placed at OSH - Follow OSH cx HEME: - hgb 10.7, plt 163 PLAN - Daily CBC PPX: Lines: Arterial Line, Peripheral Line and PICC Drains/Tubes: ETT, OGT, benson DVT: Lovenox GI: Not indicated PT/OT: Yes Insulin: No Code status: FULL Disposition: Continue ICU care - Pt critically ill with the above diagnoses. I spent 60 minutes providing critical care services including: reviewing outside records and obtaining history from the patient/family members performing a physical examination serially reviewing laboratory, telemetry, hemodynamic, oximetry, and respiratory data reviewing radiographic images reviewing medications managing fluids/electrolytes, antibiotics, ICU prophylaxis, and mechanical ventilation developing the overall plan of care. Pt seen & discussed w/ Dr. Sadie Lombardi APRN Pulm/Critical Care Available on Voalte Pager [phone] 04/23/2023 M2 team pager (2nd call/nights) [phone] __ Subjective: Silke Hansen is a 77 y.o. female who is intubated and sedated on MV. ROS: unable to obtain d/ t pt factors Objective: Medications: Scheduled Meds:chlorhexidine gluconate (PERIDEX) 0.12 % solution 15 mL, 15 mL, SEE ADMIN INSTRUCTIONS, BID(8-20) [MAR Hold] enoxaparin (LOVENOX) syringe 40 mg, 40 mg, Subcutaneous, QDAY(21) petrolatum (STYE) ophthalmic ointment 0.25 inch, 0.25 inch, Both Eyes, Q6H piperacillin/tazobactam (ZOSYN) 4.5 g in sodium chloride 0.9% (NS) 100 mL IVPB (MB+)(EXTENDED INFUSION), 4.5 g, Intravenous, Q6H* vancomycin (VANCOCIN) 1,000 mg in dextrose 5% (D5W) 250 mL IVPB ([id number]), 1,000 mg, Intravenous, Q12H* Continuous Infusions: dexMEDEtomidine (PRECEDEX) 400 mcg/NS 100 ml IV drip (premade) Stopped (04/23/23417) fentaNYL (SUBLIMAZE) 1000 mcg/100 mL NS IV drip (std conc)(premade) propofoL (DIPRIVAN) 10 mg/mL IV drip PRN and Respiratory Meds:[MAR Hold] albuterol-ipratropium Q4H PRN, fentaNYL (SUBLIMAZE) IV drip TITRATE AND fentaNYL Q30 MIN PRN, nalOXone PRN, [COMPLETED] vancomycin (VANCOCIN) IVPB ONCE ANDvancomycin, pharmacy to manage Per Pharmacy Vital Signs: Last Filed Vital Signs: 24 Hour Range BP: 93/66 (04/23 400) Temp: 36.8 C (98.2 F) (04/23 400) Pulse: 83 (04/23 400) Respirations: 26 PER MINUTE (04/23 400) SpO2: 96 % (04/23 400) O2 Percent: 40 % (04/23 410) O2 Device: CPAP/BiPAP (04/23 410) O2 Liter Flow: 12 Lpm (04/23 200) Height: 160 cm (5' 3") (04/22 1751) BP: (92-152)/(60-92) Temp: [36.4 C (97.6 F)-36.9 C (98.5 F)] Pulse: [83-117] Respirations: [20 PER MINUTE-34 PER MINUTE] SpO2: [86 %-97 %] O2 Percent: [40 %] O2 Device: CPAP/BiPAP O2 Liter Flow: 12 Lpm Vitals: 04/22/23175004/23/23399 Weight: 81.1 kg (178 lb 12.7 oz) 80.9 kg (178 lb 5.6 oz) Intake/Output Summary: (Last 24 hours) Intake/Output Summary (Last 24 hours) at 04/23/2023 0559 Last data filed at 04/23/2023 0500 Gross per 24 hour Intake 488.73 ml Output 1100 ml Net -611.27 ml Physical Exam: General Appearance: No apparent distress, appears younger than stated age Skin: exposed skin intact HEENT: Normocephalic, EOMs intact, MMM Chest and Lungs: Mechanical breath sounds, no accessory muscle use Heart: RRR, no murmurs Abdomen: soft, nondistended, non tender to palpation Genitourinary: benson Extremities: warm, no peripheral edema, palpable pulses Neurologic: sedated on MV, follows commands, able to move all extremities Artificial airway: Endotracheal Tube Ventilator/ Respiratory Therapy: Yes: Mode: V/AC+ Set Vt (ml): [310 milliliters] Tidal Volume Spont (mL): [312 milliliters-425 milliliters] Set RR: [20 breaths/minutes] Total Respiratory Rate (Breaths/Min): [20 breaths/minutes-21 breaths/minutes] Minute Volume (L/min): [3.27 liters/minutes-6.21 liters/minutes] %MVspon: [0 %] O2%: [80 %] PIP Actual: [21 cm H20-40 cm H20] PEEP/CPAP: [5 cm H2O] Mean Airway Pressure: [10 cm H2O-15 cm H2O] Plateau Pressure: [40 cm H2O] Vent weaning trial: Per protocol Laboratory: LABS: Recent Labs 04/22/23183904/23/23345 NA 140 144 K 4.3 4.1 CL 112* 112* CO2 18* 20* GAP 10 12 BUN 21 24 CR 0.77 0.79 GLU 133* 150* CA 8.4* 8.0* ALBUMIN 3.6 3.2* MG 2.8* 2.5 PO4 2.5 2.3 Recent Labs 04/22/23183904/23/23 034 WBC 36.7* 33.3* HGB 11.8* 10.7* HCT 35.6* 32.1* PLTCT 157 163 PT 15.1* -- INR 1.4* -- PTT 39.3* -- AST 47* 39 ALT 35 34 ALKPHOS 47 57 Estimated Creatinine Clearance: 58.2 mL/min (based on SCr of 0.79 mg/dL). Vitals: 04/22/23 1751 04/23/23 0400 Weight: 81.1 kg (178 lb 12.7 oz) 80.9 kg (178 lb 5.6 oz) Recent Labs 04/23/23 0406 PHART 7.31* PO2ART 87 Radiology and Other Diagnostic Procedures Review: Reviewed * Natalee Sanchez MD - 04/23/2023 5:38 AM CDT Brief Urology Progress Note Silke Hansen is a 77 y.o. female with hx of HTN, who is currently admitted with pneumonia and urosepsis secondary to 9mm RIGHT ureteral stone s/p R stent on 04/23. Notably, patient also had a largecystocele and bladder stones consistent with poor bladder emptying. She was kept intubated due to ongoing respiratory distress and pre-op positive pressure requirement. Plan: - Maintain indwelling benson and ureteral stent > Can add levsin 0.125mg Q4H PRN and flomax 0.4mg daily when patient is extubated > Pt does not empty bladder well at baseline, may need PVRs at time of catheter removal - Abx per primary > Additional culture from R renal pelvis sent intra-op - Urology will follow Natalee Sanchez MD Urology Resident * Radha Serrano, PHARMD - 04/22/2023 8:47 PM CDT Pharmacy Vancomycin Note Subjective: Silke Hansen is a 77 y.o. female being treated for bloodstream infection. Assessment: Target levels for this patient: 1. AUC (mcg*h/mL): 400-600 2. Trough (mcg/mL): 10-20 Plan: 1. Vancomycin 1250mg IV once then start vancomcyin 1000mg IV q12hr for a predicted AUC of 450 mcg*h/mL and trough of 13 mcg/mL. I called the OSH and confirmed patient did not receive vancomycin thereprior to transfer. 2. Next scheduled level(s): AUC levels at steady state or as clinically indicated (not ordered) 3. Pharmacy will continue to monitor and adjust therapy as needed. Objective: Drug Levels: No results found for: "VANCOMYCIN 2HR POST DOSE", "VANCOMYCIN TROUGH", "VANCOMYCIN RANDOM" Current Vancomycin Orders Medication Dose Route Frequency [START ON 04/23/2023] vancomycin (VANCOCIN) 1,000 mg in dextrose 5% (D5W) 250 mL IVPB (Juyl1Ime) 1,000 mg Intravenous Q12H* vancomycin (VANCOCIN) in 0.9% sodium chloride 275 mL IVPB 1,250 mg 1,250 mg Intravenous ONCE And vancomycin, pharmacy to manage 1 each Service Per Pharmacy Recent Vancomycin Dosing and Administration: Recent Vancomycin Admin Ordered but not administered Start Date of vancomycin therapy: 04/22/2023 White Blood Cells Date/Time Value Ref Range Status 04/22/2023 1840 36.7 (H) 4.5 - 11.0 K/UL Final Creatinine Date/Time Value Ref Range Status 04/22/2023 1840 0.77 0.4 - 1.00 MG/DL Final Blood Urea Nitrogen Date/Time Value Ref Range Status 04/22/2023 1840 21 7 - 25 MG/DL Final Estimated CrCl: ~70 mL/min Intake/Output Summary (Last 24 hours) at 04/22/2023 204 Last data filed at 04/22/2023 1900 Gross per 24 hour Intake 0 ml Output 185 ml Net -185 ml Actual Weight: 81.1 kg (178 lb 12.7 oz) Dosing BW: 81.1 kg Radha Serrano PHARMD 04/22/2023 * Nadine Beebe RN - 04/22/2023 7:25 PM CDT 1750: Pt arrived to 6507 at this time. Pt transported from [facility] to MICU bed and attached to monitors. VSS. Physical assessment complete at this time, please see ICU flowsheet for details. Labs drawn. Pt oriented to room and plan of care. Family updated on care. Will continue to monitor. 1845: Benson catheter replaced at this time per Gabriela Lombardi APRN. Bloos cultures drawn, COVID/flu PCR collected and sent to lab at this time. Pt placed in contact, airborne with eye protection isolation. 1899: Report given to Rut Sousa RN. * Kate De La Cruz MD - 04/22/2023 7:04 PM CDT MICU STAFF NOTE This note is a documentation of critical care independently provided for the patient on 04/22/23. Ihave seen, personally fully evaluated, and assessed the patient. Ms. Hansen is critically ill with severe sepsis/resolving septic shock with associated acute encephalopathy, acute hypoxemic respiratory failure, and metabolic acidosis; thought secondary to Klebsiella/Enterobacter UTI and/or pneumonia with GNR bacteremia, in the setting of obstructive uropathy and multiple renal stones. She is accepted in transfer from [facility] after admission there on 04/21/23 with fever Tm104.8 with rigors, hypotension, RLQ pain, weakness, nausea/vomiting, lactate 6. Hospital course notable for shock requiring NE/vasopressin gtts, UA consistent with infectionand prelim identification Klebsiella/Enterobacter, GNR bacteremia, and CTa/p showing R ureter obstructing stone, R hydronephrosis, and multiple other renal/bladder calculi. She is transferred here for urology consultation and intervention. PMH is significant for HTN, chronic pain. Exam notable for lethargic but arousable, confused, comfortable-appearing woman, sleeping on her side, in no acute distress. Reactive pupils, moist mucous membranes, regular heart, diminished breath sounds, obese soft abdomen without tenderness, trace peripheral edema, warm pale skin, LUE PICC in place, grossly neurologically intact. Labs and imaging personally reviewed, notable for leukocytosis WBC 36.7 with 94% PMNs, mild coagulopathy INR 1.4 and PTT 39, hyperCl metabolic acidosis with serum CO2 18, nl anion gap 10, Cr 0.77 (unknown baseline), lactate 2.4, troponin pending, NT-Pro-BNP [id number], procal 30, UA consistent with infection (3+LE, packed WBC, few bacteria). COVID/Flu/RSV negative. ABG 7.29/38/82/18 consistent with metabolic acidosis. CXR with low lung volumes, bilateral pleural effusions, BLL infiltrate/atelectasis, pulm venous congestion. (OSH) TTE with nl LVef 50%, PASP 35, insignificant valvular disease. Overall impression is that of severe sepsis/resolving septic shock with associated acute encephalopathy, acute hypoxemic respiratory failure, and metabolic acidosis; thought secondary to Klebsiella/Enterobacter UTI and/or pneumonia with GNR bacteremia, in the setting of obstructive uropathy and mult iple renal stones. Our plan is sepsis protocol including broad infectious workup, empiric abx with vanc/zosyn for urinary & pulm sources/GNR bacteremia with de-escalation as guided by culture data, f/u OSH microbiology, gentle diuresis as hemodynamics tolerate given evidence for volume overload and pulmonary edema (as BP has improved/currently off pressors), oxygenation support via BIPAP prn, Urology consult for R hydronephrosis/obstructing stone and consideration of cystoureteroscopy for stone extraction andrenal decompression (vs IR consult for perc nephrostomy tube), serial lactate to resolution, serialtroponin to peak, and TTE to assess cardiac structure and function. I spent 65 minutes (excluding time spent performing or supervising any procedures and independent of the time spent by the CHIEF DATA OFFICER) providing and personally directing critical care services including: - systems review and physical examination - review of hemodynamic, respiratory, telemetry, laboratory, and imaging data - review of medications - management of fluids/electrolytes, antibiotics, sepsis protocol, gas exchange/NIPPV, diuresis, ICU prophylaxis, and ICU core measures - organization and coordination of care plan with the CHIEF DATA OFFICER and consultants - directing the formulation of the overall plan of care outlined above Kate De La Cruz [id number] documented in this encounter H&P Notes * Brian Franco APRN-CHIEF DATA OFFICER - 04/22/2023 6:54 PM CDT / Critical Care Admission History and Physical Assessment Name: Silke Hansen Admission Date: 04/22/2023 Principal Problem: Septic shock (HCC) Active Problems: Encephalopathy Acute hypoxemic respiratory failure (HCC) Pleural effusion Tachycardia Pneumonia UTI (urinary tract infection) Bacteremia Assessment and Plan NEURO Encephalopathy DDx encephalopathy 2/2 sepsis vs delirium Alert & Oriented X 3 (person, time, situation), intermittently confused PLAN - Monitor neuro status - Consider CT head if neuro exam changes Acute Pain - Takes ASA EC 500mg q8hrs PLAN - Hold MODULAR SET CREW MEMBER ASA PULM Acute Hypoxic Respiratory Failure Bilateral Pleural Effusions DDx pneumonia vs pleural effusions vs COVID - On 2LNC on arrival to [facility] 04/20 - On 4LNC and increased to 8LNC on arrival to MICU - CXR on arrival: RLL infiltrates and bilateral pleural effusions - ABG at : 7.29/ 38/ 82/ 18.1 - BNP 11,158 - On 8LNC to maintain SpO2 >92% PLAN - Wean Fio2 as able for goal sat > 92% - Duonebs ordered q4hrs and PRN - Lasix 20mg x1 now CV Septic Shock Tachycardia - likely 2/2 UTI and Pneumonia vs HFrEF vs hypovolemia - At OSH: Trop I 8.663 on 04/20, LA 5.98 ->3.69 -> 5.29 ->3.37 - On admit to : BP 121/60, HR 105, LA 2.4 - EKG at [facility] w/ LBBB: Cardiology consulted at [facility] d/t Type septic shock recs ASA and lovenox - 04/21 Echo at [facility]: EF 50%, Paradoxical septal motion noted, AV leaflet thickening and trivial regurg. MV trivial regurg. TV w/ mild regurg. PV trivial regurg.PASP 30-35mmHg PLAN - Goal Map > 65, SBP > 90 - Trend trop q4hrs HTN - MODULAR SET CREW MEMBER Losartan 50mg daily PLAN - Hold MODULAR SET CREW MEMBER Losartan GI - AST 47, ALT 35, ALP 47, Tbili 0.7 - Last BM MODULAR SET CREW MEMBER PLAN - NPO w/ plan for poss urology intervention in AM RENAL - Baseline Cr unknown - At OSH: Cr 0.75-1, BUN 14, CO2 17 - On admit at : Cr 0.77, BUN 21, CO2 18 PLAN - Monitor I/O - Replace benson for cultures - Daily Chemistries ENDO - No reported hx DM - At SB PLAN - Monitor BGS on daily chemistry ID UTI Pneumonia Bacteremia - On admit to OSH WBC 5.6, Temp 104F -> 10/10 WBC 39.5 - Initially started on Zosyn 04/20 and changed to Ceftriaxone 1g/day on 04/21 - On admit to [facility]: WBC 36.7, Temp 36.4C - MRSA nasal swab, C-Diff negative at [facility] - UA at [facility]: +1 Leuks, positive w/ c/f Klebsiella and Enterobacter - 04/20 [facility] BCx w/ GNRs - Procal 30.8 PLAN: - Start Zosyn 4.5g q6hrs and Vanc 1250mg, pharmacy to manage vanc - Send Blood cx from peripheral stick and L PICC, Sputum cx, Urine cx, MRSA pna screen, RVP - Request culture results from [facility] HEME - Hgb 11.8, plt 157 PLAN - Start Lovenox 40mg daily for DVT ppx - Monitor w/ daily CBCs FEN - IVF: None - Diet: NPO - Replace lytes PRN Prophylaxis Review: Lines: L PICC, PIVs Tubes/Drains: None Urinary Catheter: Yes VTE PPX: Lovenox GI ppx: None PT/OT: Yes Code status: Full Code Disposition: Admit to ICU Patient critically ill with above diagnoses. I spent 120 minutes providing critical care services including: performing a physical examination serially reviewing laboratory, telemetry, hemodynamic, oximetry, and respiratory data reviewing radiographic images reviewing medications managing fluids/electrolytes, antibiotics, ICU prophylaxis developing the overall plan of care Patient seen and discussed with Dr. Jono ALEJANDRO Pulmonary/Critical Care M2 Team Pager [phone] ATTESTATION An SUPERINTENDENT [employer] participated in the care of this patient. I have reviewed the past medical, familysocial history and review of systems documented by the student and concur with student documentation unless otherwise noted. Staff name: JAVON Cruz Date: 04/23/2023 Primary Care Physician: No primary care provider on file. CHIEF COMPLAINT: RLQ pain and AMS HISTORY OF PRESENT ILLNESS: Silke Hansen is a 77 y.o. female with PMH of HTN who presented initially to an urgent care clinic in [facility] 04/20 d/t RLQ pain and chills x1 day. She was prescribed Bactrim and Zofran, but did not fill the prescription. Her clinical status deteriorated the same day and was taken to [facility] 04/20 and found to be tachycardic in the 120's, temp of 104F, rigors, and hypotensive. Labs revealed lactate of 5.98. She was given 2L LR started on broad spectrum abx, and norepi and vaso w/ c/f septic shock 2/2 UTI and pneumonia. A L PICC was placed, on confirmation CXR she was seen to have RLL infiltrates and effusion. A CT abd/pelvis was completed and she was found tohave an obstructive stone in her R ureter. [facility] was contacted for transfer d/t lack of urology servi julia. On arrival to MICU, she is hemodynamically stable, off pressor, but found to have intermittentAMS and requiring increasing amounts of oxygen. Urology was consulted for further plan of care. PMH: Medical History: Diagnosis Date Hypertension PSH: No past surgical history on file. SOCIAL HISTORY: Social History Tobacco Use Smoking status: Never Smokeless tobacco: Never Substance and Sexual Activity Alcohol use: Never FAMILY HISTORY: No family history on file. IMMUNIZATIONS: There is no immunization history on file for this patient. ALLERGIES: Codeine HOME MEDICATIONS: No medications prior to admission. Vital Signs: Last Filed Vital Signs: 24 Hour Range BP: 152/83 (04/23 200) Temp: 36.9 C (98.5 F) (04/23 0000) Pulse: 112 (04/23 021) Respirations: 20 PER MINUTE (04/23 215) SpO2: 88 % (04/23 215) O2 Percent: 40 % (04/23 215) O2 Device: CPAP/BiPAP (04/23 215) O2 Liter Flow: 12 Lpm (04/23 200) Height: 160 cm (5' 3") (04/22 1751) BP: (108-152)/(60-92) Temp: [36.4 C (97.6 F)-36.9 C (98.5 F)] Pulse: [88-117] Respirations: [20 PER MINUTE-34 PER MINUTE] SpO2: [86 %-97 %] O2 Percent: [40 %] O2 Device: CPAP/BiPAP O2 Liter Flow: 12 Lpm Vitals: 04/22/231750 Weight: 81.1 kg (178 lb 12.7 oz) ROS: On arrival to MICU, Ms Hansen endorsed intermittent nausea and burning w/ urination. She declinedSOB, chest pain, headache, vomiting, diarrhea, or pain. Physical Exam: General appearance: alert, cooperative and no acute distress Head: Normocephalic, without obvious abnormality, atraumatic Eyes: PERRL 4mm bilaterally, R eye w/ scleral hyperemia Throat: Lips, mucosa, and tongue dry. Teeth and gums normal Lungs: Clear over decreased breath sounds w/ rales in bases bilaterally, normal effort. No rhonchi noted. Heart: regular rate and rhythm, S1, S2 normal, no murmur, click, rub or gallop Abdomen: obese, soft, non-tender. Bowel sounds normal. Extremities: extremities normal, atraumatic, no cyanosis or edema Neurologic: Alert and oriented X 3 but intermittent confusion during exam, TYSON equally. Follows commands in all extremities. Peripheral pulses: 2+ and symmetric Cap Refill: < 2 sec Skin: Skin color, texture, turgor normal. No rashes or lesions Artificial Airway None Ventilator/Respiratory Therapy 8LNC Vent Weaning Not applicable Active Wounds Laboratory: Recent Labs 04/22/23 1840 NA 140 K 4.3 CL 112* CO2 18* GAP 10 BUN 21 CR 0.77 GLU 133* CA 8.4* ALBUMIN 3.6 MG 2.8* PO4 2.5 Recent Labs 04/22/23 1840 WBC 36.7* HGB 11.8* HCT 35.6* PLTCT 157 PT 15.1* INR 1.4* PTT 39.3* AST 47* ALT 35 ALKPHOS 47 Estimated Creatinine Clearance: 59.8 mL/min (based on SCr of 0.77 mg/dL). Vitals: 04/22/231750 Weight: 81.1 kg (178 lb 12.7 oz) No results for input(s): "PHART", "PO2ART" in the last 72 hours. Invalid input(s): "PC02A" Radiology and Other Diagnostic Procedures Review: Reviewed Malnutrition Details: Associated attestation - Kate De La Cruz MD - 04/23/2023 4:49 AM CDT MICU STAFF NOTE I personally saw and evaluated the patient, performed the dick portions of the E/M visit, discussed case with MICU CHIEF DATA OFFICER, and concur with documentation of history, physical exam, assessment, and treatment plan unless otherwise noted. Please see my separate progress note dated 04/22/23 for my evaluation and plan at time of initial assessment. Kate De La Cruz [phone] documented in this encounter Consult Notes * Natalee Estes RD - 04/30/2023 12:26 PM CDTAssociated Order(s): CONSULT DIETITIAN Clinical Nutrition Education Summary Cardiac Nutrition Education Education on Cardiac Diet was provided. Topics included the following: Indications for diet Sodium limit of 2,000 milligrams daily Foods recommended/not recommended Sodium content of foods (examples) Reading food labels Food preparation suggestions Sodium-free seasonings Sample meals and snacks Eating out tips Choosing healthy fate How to read a nutrition label Written materials were provided: Nutrition for a Healthy Heart Comments: Pt reports that she had consumed 2 Boost already this morning but pts mouth still is hurting. Pt reports that her intakes have been improving. Natalee MALAGON, JOBYN, LD Available on [employer] Office: [phone] * Barbara Diana APRN-WENDY - 04/28/2023 11:14 AM CDTAssociated Order(s): CONSULT CARDIOLOGY PHYSICIAN CARDIOLOGY CONSULT NOTE Silke Hansen Admission Date: 04/22/2023 Assessment & Recs Silke Hansen is a 77 y.o. patient with the following problems: Principal Problem: Septic shock (HCC) Active Problems: Encephalopathy Acute hypoxemic respiratory failure (HCC) Pleural effusion Tachycardia Pneumonia UTI (urinary tract infection) Bacteremia Atrial fibrillation with RVR (HCC) Reason for Consult: "Ongoing Afib and tachyarrhythmias (SVT?), need for cardioversion?" History of Present Illness: Silke Hansen is a 77 y.o. female who was admitted for urosepsis secondary to renal stone on 04/22/2023. She was a transfer from OSH due to lack of urology services. She has a past medical history of hypertension and presented to OSH on 04/20 w/ c/o rlq pain and chills for 1 day. Found to be in septic shock w/ a R ureter obstructive stone. Transferred to for further care. Upon arrival to she was off pressors but increasingly altered w/ increased O2 requirements. Taken to OR early 04/23 for cystoscopy w/ right ureteral stent placement and returned to MICU intubated. Developed shock after return from OR and pressor restarted.Extubated 04/23 and now off pressors. Developed Afib w/ RVR on 04/23. Cardiology consulted today, 04/28 for paroxysmal atrial fibrillation, currently rate controlled w/ Metoprolol tartrate 50mg BID. Today she is resting comfortably in her chair. She is accompanied by family. She denies any shortness of breath, palpitations, or chest discomfort. She does note that she has been getting "sluggish" on exertion prior to admission. Family feels as though when she uses her incentive spirometer that this is when they have been able to correlate her episodes of atrial fibrillation. She does not follow with a primary channel lip stiffener insoles in her hometown of [place], [place]. Assessment: Newly discovered paroxysmal atrial fibrillation Concern for SVT - EKG on arrival to : ST w/ LBBB - Went into afib w/ RVR early 04/24, rates into 130s --> given 5mg IV metoprolol - Diltiazem gtt initiated for rate control; weaned off 04/24 at ~2300 -current rate control medication metoprolol tartrate 50mg BID; rates 90s when in sinus, 130s-160s when in atrial fibrillation -[id number] score of 5 (2 points for age, one point for gender, one point for LV dysfunction, one point for hypertension) -therapeutic Lovenox started 04/24 Acute on chronic systolic HFrEF, (new) EF: 30% NYHA Class III, ACC Stage C Major Complications or Comorbidities (HALFWAY): acute/ acute on chronic systolic and/or diastolic heartfailure She presents with signs of euvolemia with bi ventricular failure without signs of low flow state. Admission BNP: 11,158 -CXR: 04/28 Improved pulmonary edema. Decreased small layering pleural effusions. Adjacent basal opacities presumably reflect atelectasis. -Echo: 04/24/23 EF 30% AdmissionWeight: 81.1 kg (178 lb 12.7 oz) Most recent (inpatient): Vitals: 04/26/23 0414 04/27/23 0500 04/28/23 0432 Weight: 77.9 kg (171 lb 11.8 oz) 79.9 kg (176 lb 2.4 oz) 79.6 kg (175 lb 7.8 oz) Wt Readings from Last 10 Encounters: 04/28/23 79.6 kg (175 lb 7.8 oz) Intake/Output Summary (Last 24 hours) at 04/28/2023 1458 Last data filed at 04/28/2023 1000 Gross per 24 hour Intake 480 ml Output 600 ml Net -120 ml GDMT MODULAR SET CREW MEMBER Changes BB None Metoprolol tartrate 50mg BID ACEI/ARB/ARNI Losartan 50mg daily Losartan 25mg daily Aldosterone Antagonist None Hydralazine/Nitrate No (Not receiving therapeutic doses of ALONZO-i/ARB and BB) Ivabradine NA HRMT No (Not receiving optimal medical therapy for at least 3 months) SGLT2-i None Cardiac Rehab Anticoagulation for Afib/flutter Therapeutic lovenox Diuretic Therapy Prior to admission dose None Given on admission Daily Dosing -echo 04/24 EF 30-35%, mild to moderate MR and TR -elevated CVP -she has received IV Furosemide 40mg 04/26 x1 Acute Hypoxic Respiratory Failure Bilateral Pleural Effusions -no oxygen prior to admission -was intubated in OR, extubated 04/23 -weaning down on O2, now on 2L NC NSTEMI, Type 2 - Trop peaked at 2610. Suspect demand in the setting of septic shock -most recent stress test was 12 years ago -ECG on admission showing LBBB Hypertension -primary team restarted MODULAR SET CREW MEMBER Losartanat reduced dose 25mg daily ([id number] daily MODULAR SET CREW MEMBER) -blood pressures stable, but soft 90s-100s/50s-60s Acute hypoxic respiratory failure Bilateral pleural effusions -pneumonia vs. Pleural effusions -no baseline O2 -- On admit to MICU requiring 8L NC - CXR: RLL infiltrates and bilateral pleural effusions - NT-pro-BNP 11,158 - Intubated for OR, extubated 04/23 - [id number] Bladder stones, right uretal stone Elevated BMI: Body mass index is 31.09 kg/m. Weight loss, Cardiac Healthy diet, and exercise whenpatient can tolerate. Suspicion for Obstructive Sleep Apnea (MANISH): -no sleep study on file Recommendations: 1. Given newly depressed EF, onset of atrial fibrillation, LBBB, and risk factors for coronary disease, would recommend stress test to rule out ischemia. Patient unable to walk on treadmill due to recent surgery will order chemical stress test (done). 2. Eventually switch her Metoprolol tartrate to succinate as blood pressure allows; anticipate tomorrow. Uptitrate as able. 3. Limited on maximizing GDMT due to soft blood pressures; would avoid SGLT2i given history of UTIsand recent UTI. Could consider adding low dose Spironolactone in the future as blood pressure allows. 4. Will continue to watch rhythm; currently paroxysmal atrial fibrillation; at time of physical exam she was not in atrial fibrillation and not candidate for cardioversion at this time. Will pursue rate control strategy at this time as she has remained stable, and most likely occurred in the post-operative setting. 5. Can consider repeating echo when she has been consistently maintaining normal sinus rhythm. 6. Would recommend 30 day MCOT on discharge. 7. Ongoing efforts at weight reduction would be beneficial long-term. Recommend [facility] referral on discharge 8. Please keep K above/= 4.0 and Mag above/= 2.0 9. Continue to monitor on telemetry while inpatient. 10. Outpatient follow-up with cardiology; if she does not have a channel lip stiffener insoles at home she can follow-up with myself or Dr. Barrett. She does not live in the area but stated she would be willing to drive for at least one follow-up appointment. Schedule closer to time of discharge. Thank you for the opportunity to participate in the care of your patient. Please call with questions or concerns. Thank you for the Consult. Will follow along. Discussed with Cardiology attending. Please see attestation by Dr. Barrett for final recommendations or changes to above plan. Babita Diana, DNP, SUPER[employer]ENDENT [employer], SENIOR PRICING ANALYST-C Cardiology Consult Service Available on [employer] Cardiac testing and imaging CXR: 04/28/23 Improved pulmonary edema. Decreased small layering pleural effusions. Adjacent basal opacities presumably reflect atelectasis. EC04/25/23 -sinus tachycardia with LBBB Echocardiograms: 04/24/23 Difficult to accurately assess the LV [...] is no prior study available for comparison respiratory therapy aide: sinus tachycardia, rates 90s Stress tests: 04/29 Home Medications Medications Prior to Admission Medication Sig losartan (COZAAR) 50 mg tablet Take one tablet by mouth daily. nystatin (MYCOSTATIN) 100,000 units/mL oral suspension RINSE AND SPIT WITH 2 ML BY MOUTH TWICE DAILY FOR 3 WEEKS Current Medications Scheduled Meds:cefTRIAXone (ROCEPHIN) IVP 2 g, 2 g, Intravenous, Q24H* enoxaparin (LOVENOX) syringe 80 mg, 1 mg/kg, Subcutaneous, BID insulin aspart (U-100) (NOVOLOG FLEXPEN U-100 INSULIN) injection PEN 0-6 Units, 0-6 Units, Subcutaneous, Q4H [Held by Provider] losartan (COZAAR) tablet 25 mg, 25 mg, Oral, QDAY metoprolol tartrate (LOPRESSOR) tablet 50 mg, 50 mg, Feeding Tube, BID Protein Supplement Packets, , SEE ADMIN INSTRUCTIONS, QDAY tamsulosin (FLOMAX) capsule 0.4 mg, 0.4 mg, Oral, QDAY after breakfast Continuous Infusions: [Held by Provider] Diet Critical Care Enteral Feeding Volume Based Infusion Stopped (04/26/23 9835) PRN and Respiratory Meds:acetaminophen Q4H PRN, albuterol-ipratropium Q4H PRN, dextrose 50% (D50) IV PRN, xtdjoz-ppeoqtwri-een,al-simeth Q3H PRN, hyoscyamine Q4H PRN, loperamide (IMODIUM) oral solution PRN, pancrelipase 20,880 Units/sodium bicarbonate 650 mg ([facility] CLOG DESTROYER) PRN (Website Designer from Rx), phenoL PRN Allergies Allergies Allergen Reactions Codeine UNKNOWN Reported in OSH records Past Medical History Medical History: Diagnosis Date Hypertension Past Surgical History Surgical History: Procedure Laterality Date CYSTOURETHROSCOPY WITH INDWELLING URETERAL STENT INSERTION Right 04/23/2023 Performed by Jerald Lindquist MD at [facility] OR CYSTOURETHROSCOPY WITH URETERAL CATHETERIZATION WITH/ WITHOUT IRRIGATION/ INSTILLATION/ URETEROPYELOGRAPHY Right 04/23/2023 Performed by Jerald Lindquist MD at [facility] OR RETROGRADE UROGRAPHY WITH/ WITHOUT KUB Right 04/23/2023 Performed by Jerald Lindquist MD at [facility] OR Social History Social History Socioeconomic History Marital status: Tobacco Use Smoking status: Never Smokeless tobacco: Never Substance and Sexual Activity Alcohol use: Never Family History No family history on file. Review of Systems 14 point ROS completed and negative except as noted per HPI Physical Exam: Vital Signs: Last Filed In 24 Hours Vital Signs: 24 Hour Range BP: 94/59 (04/28 1106) Temp: 37.8 C (100.1 F) (04/28 0745) Pulse: 162 (04/28 110) Respirations: 16 PER MINUTE (04/28 0745) SpO2: 92 % (04/28 1106) O2 Device: None (Room air) (04/28 1106) O2 Liter Flow: 1 Lpm (04/28 0745) BP: (94-127)/(39-66) Temp: [37 C (98.6 F)-37.8 C (100.1 F)] Pulse: [82-162] Respirations: [16 PER MINUTE-18 PER MINUTE] SpO2: [92 %-97 %] O2 Device: None (Room air) O2 Liter Flow: 1 Lpm Intake/Output Summary (Last 24 hours) at 04/28/2023 1115 Last data filed at 04/28/2023 1000 Gross per 24 hour Intake 480 ml Output 850 ml Net -370 ml Physical Exam BP 94/59 | Pulse (!) 162 | Temp 37.8 C (100.1 F) Comment: RN NOTIFIED | Ht 160 cm (5' 3") | Wt 79.6 kg (175 lb 7.8 oz) | SpO2 92% | BMI 31.09 kg/m GENERAL APPEARANCE: Patient in no apparent distress. PSYCH: Appropriate NEURO: Alert and conversant VESSELS: JVD is not elevated above the sternal notch. ENT: Moist mucous membranes CARDIOVASCULAR: No parasternal lift Regular rhythm and tachycardic. S1 and S2 present. No murmur. There is no pericardial rub GI: Abdomen obese No appreciable hepatomegaly in the upright position RESPIRATORY: Clear breath sounds bilaterally EXTREMITIES: There was no lower extremity edema SKIN: no bruising or significant lesions GAIT: did not assess patient ambulate Lab/Radiology/Other Diagnostic Tests: CBC w/Diff Lab Results Component Value Date/Time WBC 11.8 (H) 04/28/2023 05:44 AM RBC 4.21 04/28/2023 05:44 AM HGB 12.1 04/28/2023 05:44 AM HCT 36.3 04/28/2023 05:44 AM MCV 86.3 04/28/2023 05:44 AM MCH 28.8 04/28/2023 05:44 AM MCHC 33.4 04/28/2023 05:44 AM RDW 14.1 04/28/2023 05:44 AM PLTCT 288 04/28/2023 05:44 AM MPV 8.1 04/28/2023 05:44 AM Lab Results Component Value Date/Time NEUT 76 04/28/2023 05:44 AM ANC 9.08 (H) 04/28/2023 05:44 AM LYMA 14 (L) 04/28/2023 05:44 AM ALC 1.65 04/28/2023 05:44 AM BERNADINE 7 04/28/2023 05:44 AM AMC 0.77 04/28/2023 05:44 AM EOSA 3 04/28/2023 05:44 AM AEC 0.32 04/28/2023 05:44 AM BASA 0 04/28/2023 05:44 AM ABC 0.02 04/28/2023 05:44 AM Comprehensive Metabolic Profile Lab Results Component Value Date/Time NA 143 04/28/2023 05:44 AM K 3.9 04/28/2023 05:44 AM CL 103 04/28/2023 05:44 AM CO2 30 04/28/2023 05:44 AM GAP 10 04/28/2023 05:44 AM BUN 19 04/28/2023 05:44 AM CR 0.58 04/28/2023 05:44 AM GLU 109 (H) 04/28/2023 05:44 AM Lab Results Component Value Date/Time CA 8.7 04/28/2023 05:44 AM PO4 3.8 04/28/2023 05:44 AM ALBUMIN 2.9 (L) 04/28/2023 05:44 AM TOTPROT 5.6 (L) 04/28/2023 05:44 AM ALKPHOS 32 04/28/2023 05:44 AM AST 28 04/28/2023 05:44 AM ALT 30 04/28/2023 05:44 AM TOTBILI 0.7 04/28/2023 05:44 AM Thyroid Studies No results found for: "TSH", "FREET4" No results found for: "TNI", "CKMB", "MYOGLB" Associated attestation - Derrek Barrett MD - 04/28/2023 9:58 PM CDT Cardiology Staff Physician Attestation I have personally interviewed and examined the patient. I have reviewed the medical record, labs, pertinent imaging / laboratory studies and all pertinent medical documentation including the history, physical, and impression. I agree with the jointly formulated treatment plan as outlined by the Cardiology SUPERINTENDENT COMMISSARY, Babita Diana. Pleasant 77-year-old female was admitted for urosepsis secondary to nephrolithiasis. She underwentcystoscopy and ureteral stent placement. She spent some time in the medical ICU intubated for septic shock. She developed A- fib with RVR. She has since converted back to sinus rhythm. Echo Doppler study shows LVEF of 30 to 35% with apical hypokinesis. This was performed in the setting of A-fibwith RVR. She did have initial troponin elevation which subsequently down trended. Her ECG demonstrates baseline left bundle branch block. At this point would recommend noninvasive ischemic evaluation. I suspect this may have been a stress-induced process, but ischemia needs to be ruled out first. We will pursue a regadenoson nuclear perfusion scan tomorrow. We discussed avoiding caffeine tonight. Current GDMT includes low-dose oflosartan as well as metoprolol tartrate 50 mg twice daily. We will need to transition to metoprolol succinate prior to discharge. We will look to add spironolactone as well. We will follow-up again tomorrow. Patient's questions were answered and they agreed with the above plan. Thank you for the opportunity to participate in the care of your patient. Please call with questions or concerns. Derrek Barrett MD, [facility] Department of Cardiovascular Medicine [facility] * Juana Van, RD - 04/24/2023 5:38 PM CDTAssociated Order(s): CONSULT DIETITIAN; CONSULT DIETITIAN CLINICAL NUTRITION Clinical Nutrition Initial Assessment Name: Silke Hansen : 1945 Age: 77 y.o. Admission Date: 04/22/2023 LOS: 2 days Date of Service: 04/24/2023 Recommendation: Recommend Critical Care Enteral Feeding Volume Based Infusion Nutren 1.5 with goal rate of 45ml/hr + 1 pkt Prosource (liquid protein) (24 hr goal volume of 1080ml; 4 hr goal volume of 180ml). Full volume + Prosource to provide: 1700 kcals, 93 gm protein, 821 ml water. Additional free water per primary team, recommend at least 30 ml Q 4 hours for tube patency. Comments: Silke Hansen is a 77 y.o. female with a PMH of HTN presented initially to urgent care clinic /t RLQ pain and chills x1 day. Presented to OSH 04/20 and found anabella tachycardic, febrile, and hypotensive with lactic acidosis of5.98.Shock refractory to IVF and started on pressor. CT abd/pelvis showed obstructive stone in R ureter and transferred to [facility] 04/22 for Urology consult. On arrival to MICU, was hemodynamically stable off pressor, but found to have intermittent AMS and requiringincreasing amounts of oxygen. Taken to OR early 04/23 for cystoscopy w/ right ureteral stent placement and returned to MICU intubated. Developed shock after return from OR and started on pressor. Infe ctious w/u in process, but suspect shock from urological source. OSH blood cultures + GNR, remains on abx. Extubated 04/23, now off pressor. Developed afib w/ RVR overnight 04/23-04/24, starting AC and diltiazem drip. Continue ICU care. Cleared for regular diet, but MICU decided on placing a Corpakdue to continued drowsiness. Pt with zero PO intake yesterday. Corpak placed afternoon of 04/24 with tip in stomach. No family to provide nutrition history. There is no weight Hx in [facility] EMR. Pt looks like she has some fat and muscle loss, malnutrition Dx is pending. Pt is currently off pressors. TF recs provided to meet 100% of Pt's needs. Nutrition Assessment of Patient: ; ; Desired Weight: 63.7 kg BMI (Calculated): 31.35; BMI Categories Adult: Obesity Class I: 30-34.9; Pertinent Allergies/Intolerances: none Pertinent Labs: reviewed; Pertinent Meds: reviewed; Oral Diet Order: Regular; Current EN Order: Nutren 1.5 with goal of 40 ml/hr Current Oral Intake: Inadequate Estimated Calorie Needs: 7925-1279 (25-27 kcals/kg DBW, aka MSJ x 1.3-1.4 AF) Estimated Protein Needs: 76-96 (1.2-1.5 gm/kg per DBW 63.7 kg) Malnutrition Assessment: Evaluation pending Nutrition Focused Physical Assessment: Loss of Subcutaneous Fat: Yes; Severity: Moderate; Location: Orbital Muscle Wasting: Yes; Severity: Mild; Location: Hindu, Interosseous Edema: Yes; Severity: Mild; Location: Lower extremities Pressure Injury: none Comment: last BM 04/24 Nutrition Diagnosis: Inadequate oral intake Etiology: related to AMS Signs & Symptoms: Pt confused/drowsey, corpak placed for EN Intervention / Plan: RD providing EN recs Will monitor EN + PO intake adequacy/ tolerance, and adjust EN recs as needed. Will monitor GI function, labs, and weights. Goals: EN tolerated and meeting >85% of nutritional needs Time Frame: Within 72 hours Juana Van MS, RD, LD, CNSC Available on [employer] [place] Office [phone] * Pierre Zabala MD - 04/24/2023 9:57 AM CDTAssociated Order(s): CONSULT CARDIOLOGY PHYSICIAN Cardiology Consultation Report Silke Hansen Admission Date: 04/22/2023 Assessment/Plan: Principal Problem: Septic shock (HCC) Active Problems: Encephalopathy Acute hypoxemic respiratory failure (HCC) Pleural effusion Tachycardia Pneumonia UTI (urinary tract infection) Bacteremia 77-year-old female with a history of hypertension admitted for urosepsis, pneumonia with septicemiacomplicated by acute metabolic encephalopathy and acute hypoxemic respiratory failure requiring intubation and mechanical ventilation. Patient underwent stenting of the right ureter for her hydronephrosis. Today in the morning patient out of atrial fibrillation for which cardiology is consulted. 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 Target HR <110. Continue anticoagulation. If any bleeding episodes then it can be stopped. If plan for any surgery, then amiodarone can be started for rhythm control. On discharge if patient still have persistent atrial fibrillation, recovered from infection, then we will plan for cardioversion. Thank you for allowing us to participate in the care of this patient. Discussed with Dr. Zabala who agrees with plan above, please review their separate attestation for any changes to the plan. After 5PM please call maintenance data analyst communication and outreach manager. Friday - Friday 8AM-5PM please call Cardiology consult pager. TUSHAR Clemens J2Ee Consultant Department of Cardiovascular Medicine Cardiology Attending Staff Attestation I have personally interviewed and examined the patient, have reviewed the documentation, and have jointly formulated the assessment and plan with the CV Fellow. I'll touch base with the primary service because if the patient is looking at a general anesthesia procedure we may need to arrange for ca rdioversion--probably amiodarone tonight and possible DC cardioversion tomorrow. Pierre Zabala M.D. __ Chief Complaint: Vomiting, nausea, diarrhea, fatigue Reason of consult: Atrial fibrillation with rapid ventricular rate History of Present Illness: Silke Hansen is a 77 y.o. female with history of hypertension who presented initially to an urgent care clinic in [place] on 04/20/2023 due to right lower quadrant pain with chills for 1 day. She was prescribed Bactrim and Zofran but did not feel the prescription. Her clinical status deteriorated the same day and was taken to the [place] [facility] on 04/20/2023 and found to bein tachycardic in 120s with a temperature of 104. She was hypotensive and her lactate was elevatedaround 6. She was given fluids and started on broad-spectrum antibiotic with norepinephrine and some vasopressors for septic shock due to UTI and pneumonia. CT abdomen showed patient has obstructive stone in her right ureter with some hydronephrosis. [facility] was continued to transfer the due to lackof urology service. Patient underwent stenting by urology service yesterday. Patient was intubated for her respiratorycompromise. Her lactate has been trending down to 1.7. Her WBC is still elevated to 30,000. Her on arrival NT-proBNP was 11,000. And troponin peaked at 2600 now down to 700. Medical History: Diagnosis Date Hypertension No past surgical history on file. No family history on file. Social History Socioeconomic History Marital status: Tobacco Use Smoking status: Never Smokeless tobacco: Never Substance and Sexual Activity Alcohol use: Never Allergies: Codeine Medications: Scheduled Meds:enoxaparin (LOVENOX) syringe 80 mg, 1 mg/kg, Subcutaneous, BID furosemide (LASIX) injection 40 mg, 40 mg, Intravenous, ONCE piperacillin/tazobactam (ZOSYN) 4.5 g in sodium chloride 0.9% (NS) 100 mL IVPB (MB+)(EXTENDED INFUSION), 4.5 g, Intravenous, Q6H* tamsulosin (FLOMAX) capsule 0.4 mg, 0.4 mg, Oral, QDAY after breakfast Continuous Infusions: PRN and Respiratory Meds:albuterol-ipratropium Q4H PRN, hyoscyamine Q4H PRN, perflutren lipid microspheres Once PRN Review of Systems: Review of systems not obtained from patient due to patient factors. Physical Exam: Vital Signs: Last Filed In 24 Hours Vital Signs: 24 Hour Range BP: 116/69 (04/24 800) Temp: 36.4 C (97.5 F) (04/24 800) Pulse: 126 (04/24 800) Respirations: 32 PER MINUTE (04/24 800) SpO2: 91 % (04/24 800) O2 Percent: 30 % (04/23 1300) O2 Device: High flow nasal cannula (04/24 800) O2 Liter Flow: 8 Lpm (04/24 800) BP: (99-147)/(62-86) ABP: (113-161)/(46-76) Temp: [36.4 C (97.5 F)-37.5 C (99.5 F)] Pulse: [85-160] Respirations: [19 PER MINUTE-32 PER MINUTE] SpO2: [87 %-99 %] O2 Percent: [30 %-40 %] O2 Device: High flow nasal cannula O2 Liter Flow: 8 Lpm Intake/Output Summary (Last 24 hours) at 04/24/2023 0958 Last data filed at 04/24/2023 0800 Gross per 24 hour Intake 586.55 ml Output 920 ml Net -333.45 ml Physical Exam GENERAL: The patient is well developed, well nourished, resting comfortably and in no distress. HEENT: No abnormalities of the visible lizabeth-nasopharynx, conjunctiva or sclera are noted. NECK: There is no jugular venous distension. Carotids are palpable and without bruits. There is no thyroid enlargement. Chest: decreased breathing sounds on base of lung and rhonci present CV: There is a irregular rhythm. The first and second heart sounds are normal. There are no murmurs, gallops or rubs. ABD: The abdomen is soft and supple with normal bowel sounds. There is no hepatosplenomegaly, ascites, tenderness, masses or bruits. Neuro: There are no focal motor defects. Ambulation is normal. Alert but not oriented. Ext: There is no edema or evidence of deep vein thrombosis. Peripheral pulses are satisfactory. SKIN: There are no rashes and no cellulitis PSYCH: The patient is calm, rationale and not oriented. Lab/Radiology/Other Diagnostic Tests: CBC w/Diff Lab Results Component Value Date/Time WBC 35.6 (H) 04/24/2023 03:37 AM RBC 3.94 (L) 04/24/2023 03:37 AM HGB 11.2 (L) 04/24/2023 03:37 AM HCT 33.9 (L) 04/24/2023 03:37 AM MCV 86.0 04/24/2023 03:37 AM MCH 28.5 04/24/2023 03:37 AM MCHC 33.1 04/24/2023 03:37 AM RDW 14.3 04/24/2023 03:37 AM PLTCT 184 04/24/2023 03:37 AM MPV 8.5 04/24/2023 03:37 AM Lab Results Component Value Date/Time NEUT 95 (H) 04/24/2023 03:37 AM ANC 33.90 (H) 04/24/2023 03:37 AM LYMA 2 (L) 04/24/2023 03:37 AM ALC 0.67 (L) 04/24/2023 03:37 AM BERNADINE 3 (L) 04/24/2023 03:37 AM AMC 0.95 (H) 04/24/2023 03:37 AM EOSA 0 04/24/2023 03:37 AM AEC 0.00 04/24/2023 03:37 AM BASA 0 04/24/2023 03:37 AM ABC 0.04 04/24/2023 03:37 AM Comprehensive Metabolic Profile Lab Results Component Value Date/Time NA 144 04/24/2023 03:37 AM K 3.9 04/24/2023 03:37 AM CL 111 (H) 04/24/2023 03:37 AM CO2 24 04/24/2023 03:37 AM GAP 9 04/24/2023 03:37 AM BUN 31 (H) 04/24/2023 03:37 AM CR 0.72 04/24/2023 03:37 AM GLU 132 (H) 04/24/2023 03:37 AM Lab Results Component Value Date/Time CA 8.4 (L) 04/24/2023 03:37 AM PO4 2.1 04/24/2023 03:37 AM ALBUMIN 3.4 (L) 04/24/2023 03:37 AM TOTPROT 6.0 04/24/2023 03:37 AM ALKPHOS 55 04/24/2023 03:37 AM AST 31 04/24/2023 03:37 AM ALT 35 04/24/2023 03:37 AM TOTBILI 0.7 04/24/2023 03:37 AM Thyroid Studies No results found for: "TSH", "FREET4" No results found for: "TNI", "CKMB", "MYOGLB" Lab Results Component Value Date HIGHSTROPI 704 (H) 04/24/2023 Lab Results Component Value Date NTPROBNP 11,158.0 (H) 04/22/2023 EC04/22/2023- sinus rhythm, poor R wave progression in V1 to V4, left bundle branch block 04/24/2023-atrial fibrillation with rapid ventricular rate Echocardiogram: 04/24/2023 Difficult to accurately assess the LV ejection [...] is no prior study available for comparison Chest X-Ray: Mild cardiomegaly with interstitial prominence and patchy basilar predominant pulmonary opacities, which may reflect edema and/or pneumonia. Moderate right and small left pleural effusions. Telemetry: afib, HR max 160, avg 120-130 TUSHAR Cisse * Jerald Lindquist MD - 04/23/2023 3:13 AM CDTAssociated Order(s): CONSULT UROLOGY PHYSICIAN [facility] U[facility] Consult 04/23/2023 Patient: Silke Hansen Admission Date: 04/22/2023, LOS: 1 day Admission Diagnosis: Septic shock (HCC) [A41.9, R65.21] Date of Service: April 23, 2023 Reason for Consult: obstructing ureteral stone Referring Provider: Kate De La Cruz MD Attending Surgeon: Ameena Consult Performed by: Natalee Sanchez MD ASSESSMENT: 77 y.o. female with a history of HTN who is currently admitted to the MICU with urosepsis secondary to 9mm R ureteral stone. WBC is 36.7, lactic increasing to 2.6 (1.9). Preliminary micro data demonstrated Klebsiella/Enterobacter, GNR bacteremia. She is afebrile, but tachycardic, tachypnic and requiring new positive pressure ventilation. PLAN: - Keep NPO for procedure - to OR for cystoscopy with RIGHT ureteral stent placement > Marking: RIGHT > Position: Lithotomy > Abx: Zosyn and Vanc - Urology will follow Will discuss with staff. Thank you for consulting Urology. Natalee Sanchez MD Urology PGY-3 Please page Urology communication and outreach manager with any questions __ HPI: Silke Hansen is a 77 y.o. female with a history of HTN who is currently admitted to the MICUwith urosepsis secondary to 9mm R ureteral stone. History is limited secondary to patient's current status and no family available). Majority of history was obtained through chart review. Patient presented to outside urgent care clinic on 04/20 with reports of right lower quadrant pain and was prescribed an antibiotic for suspected urinary tract infection. Later that day she had clinical decompensation and presented to [facility] later in the day on 04/20. She was found to have a fever of 104, was tachycardic and hypotensive. She was started on pressors for urosepsis, with continued current pneumonia. Work-up demonstrated a 9 mm right ureteral stone. Currently, she is somnolent, limited responsiveness. No past medical history on file. No past surgical history on file. Medications: Scheduled Meds:enoxaparin (LOVENOX) syringe 40 mg, 40 mg, Subcutaneous, QDAY() piperacillin/tazobactam (ZOSYN) 4.5 g in sodium chloride 0.9% (NS) 100 mL IVPB (MB+)(EXTENDED INFUSION), 4.5 g, Intravenous, Q6H* vancomycin (VANCOCIN) 1,000 mg in dextrose 5% (D5W) 250 mL IVPB (Xver5Dae), 1,000 mg, Intravenous, Q12H* Continuous Infusions: dexMEDEtomidine (PRECEDEX) 400 mcg/NS 100 ml IV drip (premade) 0.3 mcg/kg/hr (04/23/23224) PRN and Respiratory Meds:albuterol-ipratropium Q4H PRN, [COMPLETED] vancomycin (VANCOCIN) IVPB ONCEAND vancomycin, pharmacy to manage Per Pharmacy Allergies: Codeine No family history on file. Vitals: Vital Signs: Last Filed In 24 Hours Vital Signs: 24 Hour Range BP: 152/83 (04/23 200) Temp: 36.9 C (98.5 F) (04/23 0000) Pulse: 112 (04/23 215) Respirations: 20 PER MINUTE (04/23 215) SpO2: 88 % (04/23 215) O2 Percent: 40 % (04/23 215) O2 Device: CPAP/BiPAP (04/23 215) O2 Liter Flow: 12 Lpm (04/23 200) Height: 160 cm (5' 3") (04/22 175) BP: (108-152)/(60-92) Temp: [36.4 C (97.6 F)-36.9 C (98.5 F)] Pulse: [88-117] Respirations: [20 PER MINUTE-34 PER MINUTE] SpO2: [86 %-97 %] O2 Percent: [40 %] O2 Device: CPAP/BiPAP O2 Liter Flow: 12 Lpm Intake/Output: Intake/Output Summary (Last 24 hours) at 04/23/2023 0313 Last data filed at 04/23/2023 0300 Gross per 24 hour Intake 375 ml Output 1055 ml Net -680 ml Physical Exam: General: Lethargic, somnolent Head: Normocephalic, without obvious abnormality, atraumatic Eyes: EOMI, no scleral icterus Lungs: Mildly labored on CPAP Heart: Regular rate, good peripheral perfusion Abdomen: Soft, non-tender, non-distended : Benson catheter in place draining yellow urine Extremity: No clubbing, cyanosis, or edema Neurologic: Grossly intact. ROS: A complete review of systems was obtained and was negative except for the symptoms reviewed above. Lab/Radiology/Other Diagnostic Tests: Recent Labs 04/22/231839 HGB 11.8* HCT 35.6* WBC 36.7* PLTCT 157 NA 140 K 4.3 CL 112* CO2 18* BUN 21 CR 0.77 GLU 133* CA 8.4* MG 2.8* PO4 2.5 ALBUMIN 3.6 TOTPROT 6.3 TOTBILI 0.7 AST 47* ALT 35 ALKPHOS 47 INR 1.4* PT 15.1* PTT 39.3* Glucose: (!) 133 (04/22/231839) POC Glucose (Download): (!) 146 (04/22/231843) STAFF CONSULT NOTE History and examination reviewed and dick elements confirmed. Discussed with the patient in detail and questions answered. Ms. Hansen presents to urgent consult to the Urology service for management of an obstructing proximal 9 mm RIGHT ureteral stone at the ureteropelvic junction Review of the outside records and Transfer Center information indicate she initially sought medicalcare locally on 04/20/2023 Transfer Center intake information from 04/21/2023 indicate she was ill with UTI and stone Transferred to [facility] for additional management and admitted through the MICU service Per records, on admission the patient was tachycardic to 120 bpm with tachypnea, prior hypotension,febrile to 104.8, and WBC to 39.5 On Zosyn and Vancomycin Admitted to MICU last evening for resuscitation and stabilization, now with increasing pressor requirements and positive pressure ventilation support Urology consulted around 1 am this morning, and I was notified about this patient around 3:[address] scan from her transferring hospital reviewed which showed a proximal 9 mm obstructing ureteral stone with associated hydronephrosis Diagnosis: Urosepsis with proximal 9 mm obstructing RIGHT ureteropelvic junction stone Plan: Recommend proceed to OR for urgent RIGHT ureteral stent placement for upper tract decompression Continue on IV antibiotics per primary team I personally saw and evaluated the patient and determined the plan of care. I personally performedthe dick portions of the E&M visit, discussed the case with the resident, PA, DRY PAN FEEDER and/or student, and concur with documentation of history, physical examination, assessment, and treatment plan unless otherwise noted. Jerald Lindquist MD, MPH documented in this encounter Nursing Notes * Yanni Coe APRN-NP - 04/26/2023 11:48 AM CDT Pt will be transferred to [place] [address]. Please page [phone] or voalte for handoff. documented in this encounter OR Notes * Operative Report (Direct Entry) - Jerald Lindquist MD - 04/23/2023 4:35 AM CDT OPERATIVE REPORT Name: Silke Hansen is a 77 y.o. female : 1945 DATE OF OPERATION: 04/23/2023 Surgeon(s) and Role: * Jerald Lindquist MD - Primary * Natalee Sanchez MD - Assisting resident * Jonathan Fine MD - Assisting resident Preoperative Diagnosis: Ureteral stone [N20.1] UROSEPSIS AND SEPTIC SHOCK Post-op Diagnosis * Ureteral stone [N20.1] * URETERAL OBSTRUCTION (RIGHT) * UROSEPSIS / SEPTIC SHOCK Procedure(s) (LRB): CYSTOURETHROSCOPY WITH INDWELLING URETERAL STENT INSERTION (Right) INJECTION OF CONTRAST MATERIAL RETROGRADE IN RIGHT URETER FOR IMAGING (RIGHT) INTRAOPERATIVE FLUOROSCOPY WITH RETROGRADE PYELOGRAPHY AND IMAGING INTERPRETATION (RIGHT) Surgical site infection present at time of surgery? YES UROSEPSIS WITH SEPTIC SHOCK Indication for Procedure: 77 y.o. female with a history of HTN who is currently admitted to the MICU with urosepsis secondary to 9mm R ureteral stone Findings: - Severely inflamed bladder with erythema, bullae - Several 1-2 cm stones within the bladder - Somewhat low-lying right kidney - Gentle right retrograde pyelogram with mild hydronephrosis - Efflux of mild debris after placement of 6 x 26 cm JJ ureteral stent Description and Findings of Operative Procedure: The patient was identified and informed consent was obtained. The patient was brought back to the operating room and placed on the table in supine position. Bilateral lower extremity compression devices were placed. The patient received IV antibiotics prior to the smooth induction of anesthesia.A pre-operative safety time out and checklist was performed confirming the correct patient and planned procedure. The patient was then placed in the dorsal lithotomy postion taking care to pad all pressure points. The patient's genitals were prepped and draped in the usual sterile fashion. A 22-Uzbek scope and 30-degree lens was inserted in the patient's urethra and advanced towards thebladder. Systematic inspection of the bladder revealed severe erythema and some bladder stones as well as a cystocele. Ureteral orifices were in the normal orthotopic location bilaterally. We turnedour attention to the right ureteral orifice. A sensor wire was advanced until we met resistance andsaw some curl in the wire. A 6 x 26 cm Percuflex ureteral stent was advanced over the wire. There was approximately 270 degrees of curl in the kidney and good curl in the bladder. We did not appreciated efflux from the stent; in this scenario we expected to see purulence. The decision was made to obtain a gentle retrograde pyelogram and replaced the stent. This was done by removing the stent witha stent grasper to the urethral meatus and cannulating the sent with a sensor wire. We then obtained a gentle retrograde pyelogram alongside the wire. This demonstrated a low-lying right kidney in the area of the prior proximal curl with wire in position in the upper pole. The 6 x 26 cm stent was reintroduced through the cystoscope. This time good curl was seen in the upper pole; contrast still opacified the system. There was efflux of some mild debris around the stent. A 16 Fr benson with 10 ccof sterile water in the balloon was placed. The case was concluded. She was transported back to theICU intubated. Estimated Blood Loss: 3 mL Specimen(s) Removed/Disposition: * No specimens in log * Attestation: Dr Lindquist was present for the entire procedure. Complications: None Implants: Right 6 x 26 cm Percuflex ureteral stent without strings Drains: 16 Fr silicon catheter with balloon inflated to 10 cc Disposition: ICU - stable Jonathan Fine MD Pager [phone] ATTESTATION: SINGLE SURGICAL PROCEDURE PERFORMED WITH THE ASSISTANCE OF RESIDENT SURGEONS OUTLINED I personally saw and evaluated the patient and determined the plan of care. I personally performedthe dick portions of the E&M visit, discussed the case with the resident, PA, DRY PAN FEEDER and/or student, and concur with documentation of history, physical examination, assessment, and treatment plan unless otherwise noted. Jerald Lindquist MD, MPH documented in this encounter Miscellaneous Notes * Transfer - Desiree Ross APRN-WENDY - 04/26/2023 3:06 PM CDT In-Hospital Transfer Note Admission Diagnosis: Septic shock Admission Date: 04/22/2023 Active Hospital Problem List: Principal Problem: Septic shock (HCC) Active Problems: Encephalopathy Acute hypoxemic respiratory failure (HCC) Pleural effusion Tachycardia Pneumonia UTI (urinary tract infection) Bacteremia Atrial fibrillation with RVR (HCC) Hospital Course: Silke Hansen is a 77 y.o. female with a PMH of HTN. Presented to OSH 04/20 d/t RLQ pain &chills x1 day. Found to be tachycardic, febrile, &hypotensive with lactate 5.98. Shock refractory to IVF and started on pressor. CT abd/pelvis w/ obstructive stone in R ureter and transferred to [facility] 04/22 for Urology consult. On arrival to MICU, was hemodynamically stable off pressor, but found to have intermittent AMS and requiring increasing amounts of oxygen. Taken to OR early 04/23 for cystoscopy w/ right ureteral stent placement and returned to MICU intubated. Developed shock after return from OR and pressor restarted. Infectious w/u in process, but suspect shock from urological source. OSH blood culturesw/ klebiella oxytoca, remains on abx. Extubated 04/23, now off pressor. Developed afib w/ RVR overnight 04/23-04/24, Cardiology consulted. Rate controlled on metoprolol, though remains in afib. Now stable for floor. 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 Will not trial of void at discharge; maintain benson through discharge - Urology will follow peripherally and arrange definitive treatment plan when patient is nearer to discharge, no urologic intervention at this time Desiree Ross APRN Pulm/Critical Care Available on [facility] Pager [phone] * Care Plan - Marleny Combs RN - 04/26/2023 12:44 PM CDT Problem: Discharge Planning Goal: Participation in plan of care Outcome: Goal Ongoing Goal: Knowledge regarding plan of care Outcome: Goal Ongoing Goal: Prepared for discharge Outcome: Goal Ongoing Problem: High Fall Risk Goal: High Fall Risk Outcome: Goal Ongoing Problem: Skin Integrity Goal: Skin integrity intact Outcome: Goal Ongoing Goal: Healing of skin (Wound & Incision) Outcome: Goal Ongoing Goal: Healing of skin (Pressure Injury) Outcome: Goal Ongoing Problem: Infection, Risk of Goal: Absence of infection Outcome: Goal Ongoing Goal: Knowledge of Infection Control Procedures Outcome: Goal Ongoing Problem: Injury-Risk of, Non-Violent Physical Restraints Goal: Absence of Injury while physically restrained (Non-Violent) Outcome: Goal Ongoing Problem: Nutrition Deficit Goal: Adequate nutritional intake Outcome: Goal Ongoing documented in this encounter Plan of Treatment Pending Results Name Type Priority Associated Diagnoses Date /Time [facility] Lab Routine 04/22/20 6:48 PM CDT Scheduled Orders Name Type Priority Associated Diagnoses Orde r Schedule [facility] Lab Routine ONE TIME for 1 Occurrences starting 04/22/2023 until 04/22/2023 documented as of this encounter Goals Goal Patient Goal Type Associated Problems Recent Progress Patient-Stated? Author Recover from illness Hospital On track(04/29/20 12:13 PM CDT) No Angelica Canada RN documented as of this encounter Procedures Procedure Name Priority Date/Time Associated Diagnosis Comments POC GLUCOSE 05/01/2023 12:07 PM CDT POC GLUCOSE 05/01/2023 8:22 AM CDT HC MAGNESIUM (MGCT) Routine 05/01/2023 5:31 AM CDT HC CBC W/ AUTOMATED DIFF Routine 023 5:31 AM CDT HC PHOSPHOROUS, SERUM Routine 05/01/2023 5:31 AM CDT HC COMPREHENSIVE METABOLIC PANEL Routine 05/01/2023 5:31 AM CDT POC GLUCOSE 04/30/2023 11:04 PM CDT POC GLUCOSE 04/30/2023 5:02 PM CDT COVID-19 (SARS-COV-2) PCR STAT 04/30/2023 2:21 PM CDT POC GLUCOSE 04/30/2023 11:12 AM CDT POC GLUCOSE 04/30/2023 8:22 AM CDT HC MAGNESIUM (MGCT) Routine 04/30/2023 4:55 AM CDT HC CBC W/ AUTOMATED DIFF Routine 023 4:55 AM CDT HC PHOSPHOROUS, SERUM Routine 04/30/2023 4:55 AM CDT HC COMPREHENSIVE METABOLIC PANEL Routine 04/30/2023 4:55 AM CDT POC GLUCOSE 04/29/2023 9:32 PM CDT POC GLUCOSE 04/29/2023 4:44 PM CDT POC GLUCOSE 04/29/2023 12:01 PM CDT POC GLUCOSE 04/29/2023 8:56 AM CDT NM PET ABSOLUTE QUANT MYOCARDIAL BLOOD FLOW Routine 04/29/2023 8:55 AM CDT NM STRESS ECG Routine 04/29/2023 8:55 AM CDT NM PET/CT MYOCARDIAL IMAGING PERFUSION STRESS AND REST Routine 04/29/2023 8:55 AM CDT HC MAGNESIUM (MGCT) Routine 04/29/2023 4:53 AM CDT HC CBC W/ AUTOMATED DIFF Routine 023 4:53 AM CDT HC PHOSPHOROUS, SERUM Routine 04/29/2023 4:53 AM CDT HC LIPID-5:CHOL/TRG/HDL/LDL +VLDL Routine 04/29/2023 4:53 AM CDT HC COMPREHENSIVE METABOLIC PANEL Routine 04/29/2023 4:53 AM CDT POC GLUCOSE 04/29/2023 3:42 AM CDT POC GLUCOSE 04/28/2023 8:54 PM CDT POC GLUCOSE 04/28/2023 3:40 PM CDT US DOPPLER VENOUS LEFT Routine 3:10 PM CDT CHEST 2 VIEWS Routine 04/28/2023 2:52 PM CDT POC GLUCOSE 04/28/2023 12:34 PM CDT POC GLUCOSE 04/28/2023 7:48 AM CDT HC MAGNESIUM (MGCT) Routine 04/28/2023 5:44 AM CDT HC NT-PRO-BNP Routine 04/28/2023 5:44 AM CDT HC CBC W/ AUTOMATED DIFF Routine 023 5:44 AM CDT HC PHOSPHOROUS, SERUM Add on 04/28/2023 5:44 AM CDT HC COMPREHENSIVE METABOLIC PANEL Routine 04/28/2023 5:44 AM CDT POC GLUCOSE 04/28/2023 4:53 AM CDT POC GLUCOSE 04/28/2023 12:28 AM CDT POC GLUCOSE 04/27/2023 8:32 PM CDT POC GLUCOSE 04/27/2023 5:18 PM CDT POC GLUCOSE 04/27/2023 12:38 PM CDT POC GLUCOSE 04/27/2023 9:03 AM CDT HC PHOSPHOROUS, SERUM (PO4CT) Routine 04/27/2023 5:02 AM CDT HC MAGNESIUM (MGCT) Routine 04/27/2023 5:02 AM CDT HC CBC W/ AUTOMATED DIFF Routine 023 5:02 AM CDT HC COMPREHENSIVE METABOLIC PANEL Routine 04/27/2023 5:02 AM CDT POC GLUCOSE [...] POC GLUCOSE 04/26/2023 4:12 AM CDT HC PHOSPHOROUS, SERUM (PO4CT) Routine 04/26/2023 2:17 AM CDT HC MAGNESIUM (MGCT) Routine 04/26/2023 2:17 AM CDT HC CBC W/ AUTOMATED DIFF Routine 023 2:17 AM CDT HC HEMOGLOBIN A1C STAT 04/26/2023 2:17 AM CDT HC COMPREHENSIVE METABOLIC PANEL Routine 04/26/2023 2:17 AM CDT POC GLUCOSE [...] (MGCT) Routine 04/25/2023 2:11 AM CDT HC CBC W/ AUTOMATED DIFF Routine 023 2:11 AM CDT HC COMPREHENSIVE METABOLIC PANEL Routine 04/25/2023 2:11 AM CDT FEEDING TUBE PLCMNT (ABD/CHEST LMTD) Routine 04/24/2023 3:13 PM CDT BASIC METABOLIC PANEL STAT 04/24/2023 12:25 PM CDT ECG 12-LEAD STAT 04/24/2023 12:24 PM CDT 2D + DOPPLER ECHO W/ CONTRAST ANSHUL 04/24/2023 10:04 AM CDT ECG 12-LEAD STAT 04/24/2023 8:12 AM CDT ECG 12-LEAD STAT 04/24/2023 4:36 AM CDT HC PHOSPHOROUS, SERUM (PO4CT) Routine 04/24/2023 3:37 AM CDT HC MAGNESIUM (MGCT) Routine 04/24/2023 3:37 AM CDT HC HIGH SENSITIVITY TROPONIN I RANDOM Add on 04/24/2023 3:37 AM CDT HC CBC W/ AUTOMATED DIFF Routine 023 3:37 AM CDT HC URIC ACID Routine 04/24/2023 3:37 AM CDT HC COMPREHENSIVE METABOLIC PANEL Routine 04/24/2023 3:37 AM CDT CULTURE-BLOOD W/SENSITIVITY Routine 04/23/2023 3:57 PM CDT HC HIGH SENSITIVITY TROPONIN I RANDOM STAT 04/23/2023 2:37 PM CDT HC HIGH SENSITIVITY TROPONIN I RANDOM STAT 04/23/2023 10:29 AM CDT CHEST SINGLE VIEW STAT 04/23/2023 6:40 AM CDT HC HIGH SENSITIVITY TROPONIN I RANDOM Specimen in Lab 04/23/2023 6:18 AM CDT HC BLOOD GASES;(CALCULATED 02) STAT 04/23/2023 6:18 AM CDT HC MRSA PNEUMONIA SCREEN Routine 023 6:10 AM CDT CULTURE-URINE W/SENSITIVITY STAT 04/23/2023 5:12 AM CDT Ureteral stone RETROGRADE UROGRAPHY WITH/ WITHOUT KUB 04/23/2023 4:21 AM CDT Ureteral stone CYSTOURETHROSCOPY WITH URETERAL CATHETERIZATION WITH/ WITHOUT IRRIGATION/ INSTILLATION/ URETEROPYELOGRAPHY 04/23/2023 4:21 AM CDT Ureteral stone CYSTOURETHROSCOPY WITH INDWELLING URETERAL STENT INSERTION 04/23/2023 4:21 AM CDT Ureteral stone HC BLOOD GASES;(CALCULATED 02) Routine 04/23/2023 4:06 AM CDT HC PHOSPHOROUS, SERUM (PO4CT) Routine 04/23/2023 3:46 AM CDT HC MAGNESIUM (MGCT) Routine 04/23/2023 3:46 AM CDT HC LACTIC ACID - BG SYRINGE STAT 04/23/2023 3:46 AM CDT HC CBC W/ AUTOMATED DIFF Routine 023 3:46 AM CDT HC COMPREHENSIVE METABOLIC PANEL Routine 04/23/2023 3:46 AM CDT GRAM STAIN 04/23/2023 2:17 [...] W/SENSITIVITY Routine 04/22/2023 6:48 PM CDT HC BLOOD GAS, POC 04/22/2023 6:47 PM CDT HC SODIUM, POC 04/22/2023 6:47 PM CDT HC POTASSIUM, POC 04/22/2023 6:47 PM CDT HC HEMATOCRIT POC 04/22/2023 6:47 PM CDT POC GLUCOSE 04/22/2023 6:44 PM CDT HC LACTIC ACID - BG SYRINGE Routine 04/22/2023 6:40 PM CDT HC PTT(APTT) Routine 04/22/2023 6:40 PM CDT HC PT(INR) Routine 04/22/2023 6:40 PM CDT HC CBC W/ AUTOMATED DIFF Routine 023 6:40 PM CDT HC PHOSPHOROUS, SERUM Routine 04/22/2023 6:40 PM CDT HC MAGNESIUM Routine 04/22/2023 6:40 PM CDT HC CALCIUM IONIZED Routine 04/22/2023 6:40 PM CDT HC COMPREHENSIVE METABOLIC PANEL Routine 04/22/2023 6:40 PM CDT TELEMETRY STRIPS-SCAN 04/22/2023 12:00 [...] CDT TELEMETRY STRIPS-SCAN 04/22/2023 12:00 AM CDT documented in this encounter Results * (ABNORMAL) POC GLUCOSE (05/01/2023 12:07 PM CDT) Glucose, POC 119(H) 70 - 100 MG/DL 05/01/2023 12:24 PM CDT [facility] DEPT PATH AND LAB MEDICINE POC 05/01/2023 12:0 7 PM CDT 05/01/2023 12:24 PM CDT Hussain Slaughter MD OTHER LABORATORY Performing Organization Address City/[facility] Co de Phone Number [facility] PATH AND LAB MEDICINE POC [address] [place] [address] * (ABNORMAL) POC GLUCOSE (05/01/2023 8:22 AM CDT) Glucose, POC 132(H) 70 - 100 MG/DL 05/01/2023 8:44 AM CDT [facility] PATH [facility] LAB MEDICINE POC 05/01/2023 8:2 2 AM CDT 05/01/2023 8:44 AM CDT Hussain Slaughter MD OTHER LABORATORY Performing Organization Address City/[facility]/ZIP Co de Phone Number [facility] PATH AND LAB MEDICINE POC [address] [place] [address] * PHOSPHORUS (05/01/2023 5:31 AM CDT) Phosphorus 3.3 2.0 - 4.5 MG/DL 05/01/2023 7:00 AM CDT [facility] DEPT PATH AND LAB MEDICINE BLOOD / Unknown 05/01/2023 5:31 AM CDT 05/01/2023 5:32 AM CDT Hussain Slaughter MD LABORATORY ORDERAB LES [facility] PATH AND LAB MEDICINE [address] * (ABNORMAL) COMPREHENSIVE METABOLIC PANEL (05/01/2023 5:31 AM CDT) Sodium 143 137 - 147 MMOL/L 05/01/2023 7:00 AM CDT [facility] DE[facility] PATH AND LAB MEDICINE Potassium 4.8 3.5 - 5.1 MMOL/L 05/01/2023 7:00 AM CDT [facility] DEPT PATH AND LAB MEDICINE Comment:SLT HEMOLYSIS Chloride 116(H) 98 - 110 MMOL/L 05/01/2023 7:00 AM CDT [facility] DE[facility] PATH AND LAB MEDICINE Glucose 93 70 - 100 MG/DL 05/01/2023 7:00 AM CDT [facility] DEPT PATH AND LAB MEDICINE Blood Urea Nitrogen 14 7 - 25 MG/DL 05/01/2023 7:00 AM CDT [facility] DE[facility] PATH AND LAB MEDICINE Creatinine 0.76 0.4 - 1.00 MG/DL 05/01/2023 7:00 AM CDT [facility] DE[facility] PATH AND LAB MEDICINE Calcium 8.0(L) 8.5 - 10.6 MG/DL 05/01/2023 7:00 AM CDT [facility] DEPT PATH AND LAB MEDICINE Total Protein 6.0 6.0 - 8.0 G/DL 05/01/2023 7:00 AM CDT [facility] DE[facility] PATH AND LAB MEDICINE Total Bilirubin 0.5 0.3 - 1.2 MG/DL 05/01/2023 7:00 AM CDT [facility] DE[facility] PATH AND LAB MEDICINE Albumin 2.6(L) 3.5 - 5.0 G/DL 05/01/2023 7:00 AM CDT [facility] DEPT PATH AND LAB MEDICINE Alk Phosphatase 29 25 - 110 U/L 05/01/2023 7:00 AM CDT [facility] DEPT PATH AND LAB MEDICINE AST (SGOT) 39 7 - 40 U/L 05/01/2023 7:00 AM CDT [facility] DEPT PATH AND LAB MEDICINE CO2 15(L) 21 - 30 MMOL/L 05/01/2023 7:00 AM CDT [facility] DEPT PATH AND LAB MEDICINE ALT (SGPT) 34 7 - 56 U/L 05/01/2023 7:00 AM CDT [facility] DEPT PATH AND LAB MEDICINE Anion Gap 12 3 - 12 05/01/2023 7:00 AM CDT [facility] DEPT PATH AND LAB MEDICINE eGFR >60 >60 mL/min 05/01/2023 7:00 AM CDT [facility] DEPT PATH AND LAB MEDICINE Comment:eGFR calculated nicolás ryder the CKD-EPIcr_R equation BLOOD / Unknown 05/01/2023 5:31 AM CDT 05/01/2023 5:32 AM CDT Hussain Slaughter MD LABORATORY ORDERAB LES Performing Organization Address [facility]/State/ZIP Co de Phone Number [facility] PATH AND LAB MEDICINE [address] [place] [address], * (ABNORMAL) CBC AND DIFF (05/01/2023 5:31 AM CDT) White Blood Cells 9.8 4.5 - 11.0 K/UL 05/01/2023 6:43 AM CDT [facility] DEPT PATH AND LAB MEDICINE RBC 3.89(L) 4.0 - 5.0 M/UL 05/01/2023 6:43 AM CDT [facility] DEPT PATH AND LAB MEDICINE Hemoglobin 11.3(L) 12.0 - 15.0 GM/DL 05/01/2023 6:43 AM CDT [facility] PATH AND LAB MEDICINE Hematocrit 35.0(L) 36 [...] - 11 FL 05/01/2023 6:43 AM CDT [facility] DEPT PATH AND LAB MEDICINE Neutrophils 71 [...] - 4.8 K/UL 05/01/2023 6:43 AM CDT [facility] DEPT PATH AND LAB MEDICINE Absolute Monocyte Count 0.88(H) 0 - 0.80 K/UL 05/01/2023 6:43 AM CDT [facility] DEPT PATH AND LAB MEDICINE Absolute Eosinophil Count 0.23 0 - 0.45 K/UL 05/01/2023 6:43 AM CDT [facility] DEPT PATH AND LAB MEDICINE Absolute Basophil Count 0.02 0 - 0.20 K/UL 05/01/2023 6:43 AM CDT [facility] PATH AND LAB MEDICINE BLOOD / Unknown 05/01/2023 5:31 AM CDT 05/01/2023 5:32 AM CDT Hussain Slaughter MD LABORATORY ORDERAB LES [facility] PATH AND LAB MEDICINE [address] [place] [address], * MAGNESIUM CELLULAR THERAPEUTICS (05/01/2023 5:31 AM CDT) Magnesium 2.3 1.6 - 2.6 mg/dL 05/01/2023 7:00 AM CDT [facility] PATH AND LAB MEDICINE Comment:SLT HEMOLYSIS BLOOD / Unknown 05/01/2023 5:31 AM CDT 05/01/2023 5:32 AM CDT Brian Vogel APRN-CHIEF DATA OFFICER LABORATORY ORDERABLE S Performing Organization Address City/[facility]/ZIP Co de Phone Number [facility] PATH AND LAB MEDICINE [address] [place] [address], * POC GLUCOSE (04/30/2023 11:04 PM CDT) Glucose, POC 97 70 - 100 MG/DL 04/30/2023 11:05 PM CDT [facility] PATH AND LAB MEDICINE POC 04/30/2023 11:0 4 PM CDT 04/30/2023 11:05 PM CDT Hussain Slaughter MD OTHER LABORATORY [facility] PATH AND LAB MEDICINE POC [address] [place] [address] * (ABNORMAL) POC GLUCOSE (04/30/2023 5:02 PM CDT) Glucose, POC 107(H) 70 - 100 MG/DL 04/30/2023 5:03 PM CDT [facility] PATH AND LAB MEDICINE POC 04/30/2023 5:0 2 PM CDT 04/30/2023 5:03 PM CDT Hussain Slaughter MD OTHER LABORATORY [facility] PATH AND LAB MEDICINE POC [address] [place] [address] * COVID-19 (SARS-COV-2) PCR (04/30/2023 2:21 PM CDT) COVID-19 (SARS-CoV-2) PCR Source FLOCKED SWAB NASOPHARYNG EAL 04/30/2023 2:21 PM CDT [facility] PATH AND LAB MEDICINE COVID-19 (SARS-CoV-2) PCR NOT DETECTED DN-NOT DETECTED 04/30/2023 3:35 PM CDT [facility] PATH AND LAB MEDICINE Comment: This assay [...] performance characteristics have been verified by the [facility] clinical laboratory. Fact sheet for providers: https://www.fda.gov/media/011611/download Fact sheet for patients: https://www.fda.gov/media/750616/download Flocked Swab NASOPHARYNGEAL STRUCTURE / Unknown 04/30/2023 2:21 PM CDT 04/30/2023 2:28 PM CDT Hussain Slaughter MD MICROBIOLOGY ORDER KRYSTIN [facility] PATH AND LAB MEDICINE [address] [place] [address], * (ABNORMAL) POC GLUCOSE (04/30/2023 11:12 AM CDT) Glucose, POC 170(H) 70 - 100 MG/DL 04/30/2023 11:13 AM CDT [facility] PATH AND LAB MEDICINE POC 04/30/2023 11:1 2 AM CDT 04/30/2023 11:13 AM CDT Hussain Slaughter MD OTHER LABORATORY Performing Organization Address City/[facility]/ZIP Co de Phone Number [facility] PATH AND LAB MEDICINE POC [address] [place] [address] * (ABNORMAL) POC GLUCOSE (04/30/2023 8:22 AM CDT) Glucose, POC 140(H) 70 - 100 MG/DL 04/30/2023 8:23 AM CDT [facility] PATH AND LAB MEDICINE POC 04/30/2023 8:2 2 AM CDT 04/30/2023 8:23 AM CDT Hussain Slaughter MD OTHER LABORATORY Performing Organization Address [facility] Co de Phone Number [facility] PATH AND LAB MEDICINE POC [address] [place] [address] * PHOSPHORUS (04/30/2023 4:55 AM CDT) Phosphorus 3.1 2.0 - 4.5 MG/DL 04/30/2023 5:40 AM CDT [facility] PATH AND LAB MEDICINE BLOOD / Unknown 04/30/2023 4:55 AM CDT 04/30/2023 4:56 AM CDT Hussain Slaughter MD LABORATORY ORDERAB LES Performing Organization Address City/[facility] Co de Phone Number [facility] PATH AND LAB MEDICINE [address] [place] [address], * (ABNORMAL) COMPREHENSIVE METABOLIC PANEL (04/30/2023 4:55 AM CDT) Sodium 140 137 - 147 MMOL/L 04/30/2023 5:40 AM CDT [facility] DEPT PATH AND LAB MEDICINE Potassium 3.7 3.5 - 5.1 MMOL/L 04/30/2023 5:40 AM CDT [facility] DEPT PATH AND LAB MEDICINE Chloride 108 98 - 110 MMOL/L 04/30/2023 5:40 AM CDT [facility] DEPT PATH AND LAB MEDICINE Glucose 116(H) 70 - 100 MG/DL 04/30/2023 5:40 AM CDT [facility] DEPT PATH AND LAB MEDICINE Blood Urea Nitrogen 16 7 - 25 MG/DL 04/30/2023 5:40 AM CDT [facility] DEPT PATH AND LAB MEDICINE Creatinine 0.57 0.4 - 1.00 MG/DL 04/30/2023 5:40 AM CDT [facility] DEPT PATH AND LAB MEDICINE Calcium 8.0(L) 8.5 - 10.6 MG/DL 04/30/2023 5:40 AM CDT [facility] DEPT PATH AND LAB MEDICINE Total Protein 5.5(L) 6.0 - 8.0 G/DL 04/30/2023 5:40 AM CDT [facility] DEPT PATH AND LAB MEDICINE Total Bilirubin 0.6 0.3 - 1.2 MG/DL 04/30/2023 5:40 AM CDT [facility] DEPT PATH AND LAB MEDICINE Albumin 2.8(L) 3.5 - 5.0 G/DL 04/30/2023 5:40 AM CDT [facility] DEPT PATH AND LAB MEDICINE Alk Phosphatase 28 25 - 110 U/L 04/30/2023 5:40 AM CDT [facility] DEPT PATH AND LAB MEDICINE AST (SGOT) 29 7 - 40 U/L 04/30/2023 5:40 AM CDT [facility] DEPT PATH AND LAB MEDICINE CO2 25 21 - 30 MMOL/L 04/30/2023 5:40 AM CDT [facility] DEPT PATH AND LAB MEDICINE ALT (SGPT) 33 7 - 56 U/L 04/30/2023 5:40 AM CDT [facility] DEPT PATH AND LAB MEDICINE Anion Gap 7 3 - 12 04/30/2023 5:40 AM CDT [facility] DEPT PATH AND LAB MEDICINE eGFR >60 >60 mL/min 04/30/2023 5:40 AM CDT [facility] DEPT PATH AND LAB MEDICINE Comment:eGFR calculated nicolás ryder the CKD-EPIcr_R equation BLOOD / Unknown 04/30/2023 4:55 AM CDT 04/30/2023 4:56 AM CDT Hussain Slaughter MD LABORATORY ORDERAB [facility] DEPT PATH AND LAB MEDICINE [address] [place] [address], [place] * (ABNORMAL) CBC AND DIFF (04/30/2023 4:55 AM CDT) White Blood Cells 12.1(H) 4.5 - 11.0 K/UL 04/30/2023 5:18 AM CDT [facility] DEPT PATH AND LAB MEDICINE RBC 3.67(L) 4.0 - 5.0 M/UL 04/30/2023 5:18 AM CDT [facility] DEPT PATH AND LAB MEDICINE Hemoglobin 10.7(L) 12.0 - 15.0 GM/DL 04/30/2023 5:18 AM CDT [facility] DEPT PATH AND LAB MEDICINE Hematocrit 31.9(L) 36 - 45 % 04/30/2023 5:18 AM CDT [facility] DEPT PATH AND LAB MEDICINE MCV 87.0 80 - 100 FL 04/30/2023 5:18 AM CDT [facility] DEPT PATH AND LAB MEDICINE MCH 29.1 26 - 34 PG 04/30/2023 5:18 AM CDT [facility] DEPT PATH AND LAB MEDICINE MCHC 33.4 32.0 - 36.0 G/DL 04/30/2023 5:18 AM CDT [facility] DEPT PATH AND LAB MEDICINE RDW 14.1 11 - 15 % 04/30/2023 5:18 AM CDT [facility] DEPT PATH AND LAB MEDICINE Platelet Count 313 150 - 400 K/UL 04/30/2023 5:18 AM CDT [facility] DEPT PATH AND LAB MEDICINE MPV 8.1 7 - 11 FL 04/30/2023 5:18 AM CDT [facility] DEPT PATH AND LAB MEDICINE Neutrophils 77 41 - 77 % 04/30/2023 5:18 AM CDT [facility] DEPT PATH AND LAB MEDICINE Lymphocytes 13(L) 24 - 44 % 04/30/2023 5:18 AM CDT [facility] DEPT PATH AND LAB MEDICINE Monocytes 7 4 - 12 % 04/30/2023 5:18 AM CDT [facility] DE[facility] PATH AND LAB MEDICINE Eosinophils 3 0 - 5 % 04/30/2023 5:18 AM CDT [facility] DEPT PATH AND LAB MEDICINE Basophils 0 0 - 2 % 04/30/2023 5:18 AM CDT [facility] DEPT PATH AND LAB MEDICINE Absolute Neutrophil Count 9.15(H) 1.8 - 7.0 K/UL 04/30/2023 5:18 AM CDT [facility] DEPT PATH AND LAB MEDICINE Absolute Lymph Count 1.61 1.0 - 4.8 K/UL 04/30/2023 5:18 AM CDT [facility] DEPT PATH AND LAB MEDICINE Absolute Monocyte Count 0.87(H) 0 - 0.80 K/UL 04/30/2023 5:18 AM CDT [facility] DEPT PATH AND LAB MEDICINE Absolute Eosinophil Count 0.38 0 - 0.45 K/UL 04/30/2023 5:18 AM CDT [facility] DEPT PATH AND LAB MEDICINE Absolute Basophil Count 0.05 0 - 0.20 K/UL 04/30/2023 5:18 AM CDT [facility] DEPT PATH AND LAB MEDICINE BLOOD / Unknown 04/30/2023 4:55 AM CDT 04/30/2023 4:56 AM CDT Hussain Slaughter MD LABORATORY ORDERAB LES [facility] DEPT PATH AND LAB MEDICINE [address] [place] [address], * MAGNESIUM CELLULAR THERAPEUTICS (04/30/2023 4:55 AM CDT) Magnesium 2.1 1.6 - 2.6 mg/dL 04/30/2023 5:40 AM CDT [facility] DEPT PATH AND LAB MEDICINE BLOOD / Unknown 04/30/2023 4:55 AM CDT 04/30/2023 4:56 AM CDT Brian Mina Jaspreet SUPERINTENDENT COMMISSARY-CHIEF DATA OFFICER LABORATORY ORDERABLE S Performing Organization Address City/[facility]/ZIP Co de Phone Number [facility] PATH AND LAB MEDICINE [address] * (ABNORMAL) POC GLUCOSE (04/29/2023 9:32 PM CDT) Glucose, POC 102(H) 70 - 100 MG/DL 04/29/2023 9:33 PM CDT [facility] 04/29/2023 9:3 2 PM CDT 04/29/2023 9:33 PM CDT Hussain Slaughter MD OTHER LABORATORY Performing Organization Address City/[facility] Co de Phone Number [facility] PATH AND LAB MEDICINE POC [address] [place] [address] * (ABNORMAL) POC GLUCOSE (04/29/2023 4:44 PM CDT) Glucose, POC 126(H) 70 - 100 MG/DL 04/29/2023 4:46 PM CDT [facility] 04/29/2023 4:4 4 PM CDT 04/29/2023 4:46 PM CDT Hussain Slaughter MD OTHER LABORATORY Performing Organization Address City/[facility]/ZIP Co de Phone Number [facility] PATH AND LAB MEDICINE POC [address] [place] [address] * (ABNORMAL) POC GLUCOSE (04/29/2023 12:01 PM CDT) Glucose, POC 128(H) 70 - 100 MG/DL 04/29/2023 12:03 PM CDT [facility] 04/29/2023 12:0 1 PM CDT 04/29/2023 12:03 PM CDT Hussain Slaughter MD OTHER LABORATORY Performing Organization Address City/[facility]/ZIP Co de Phone Number [facility] PATH AND LAB MEDICINE POC [address] [place] [address] * (ABNORMAL) POC GLUCOSE (04/29/2023 8:56 AM CDT) [facility] Signature Glucose, POC 108(H) 70 - 100 MG/DL 04/29/2023 8:58 AM CDT [facility] PATH AND LAB MEDICINE POC 04/29/2023 8:5 6 AM CDT 04/29/2023 8:58 AM CDT Hussain Slaughter MD OTHER LABORATORY Performing Organization Address [facility] Co de Phone Number [facility] PATH AND LAB MEDICINE POC [address] [place] [address] * NM STRESS ECG (04/29/2023 8:55 AM [...] are compatible with myocardial infarction with mild ning-infarct ischemia 2. No focal hypokinesia involving the [...] lower lobe consolidation, likely atelectasis. Finalized by Victroiano Cole M.D. on 04/29/2023 9:39 AM. Dictated [...] are compatible with myocardial infarction with mild ning-infarctischemia 2. No focal hypokinesia involving the mid [...] Holman on 04/29/2023 9:01 AM. Barbara Diana SUPERINTENDENT COMMISSARY-CHIEF DATA OFFICER NUC MED ORDERABLE S * NM PET ABSOLUTE QUANT MYOCARDIAL BLOOD [...] are compatible with myocardial infarction with mild ning-infarct ischemia 2. No focal hypokinesia involving the [...] Physician:BRIANA NOEL MD; BARBARA ANDERSEN. Supervising Physician:Anthony oCulter MD; Victoriano Cole MD. TECHNIQUE: Written informed [...] are compatible with myocardial infarction with mild ning-infarctischemia 2. No focal hypokinesia involving the mid [...] Holman on 04/29/2023 9:01 AM. Barbara Diana SUPERINTENDENT COMMISSARY-CHIEF DATA OFFICER NUC MED ORDERABLE S * NM PET/CT [...] are compatible with myocardial infarction with mild ning-infarct ischemia 2. No focal hypokinesia involving the [...] are compatible with myocardial infarction with mild ning-infarctischemia 2. No focal hypokinesia involving the mid [...] on 04/29/2023 9:39 AM. Dictated by Basim Homlan on 04/29/2023 9:01 AM. Barbara Diana APRN-CHIEF DATA OFFICER NUC MED ORDERABLE S * (ABNORMAL) LIPID PROFILE (04/29/2023 4:53 AM CDT) Cholesterol 123 <200 MG/DL 04/29/2023 6:26 PM CDT [facility] DEPT PATH AND LAB MEDICINE Triglycerides 116 <150 MG/DL 04/29/2023 6:26 PM CDT [facility] DEPT PATH AND LAB MEDICINE HDL 26(L) >40 MG/DL 04/29/2023 6:26 PM CDT [facility] DE[facility] PATH AND LAB MEDICINE LDL 81 <100 mg/dL 04/29/2023 6:26 PM CDT [facility] DEPT PATH AND LAB MEDICINE VLDL 23 MG/DL 04/29/2023 6:26 PM CDT [facility] DEPT PATH AND LAB MEDICINE Non HDL Cholesterol 97 MG/DL 04/29/2023 6:26 PM CDT [facility] DEPT PATH AND LAB MEDICINE Comment: Calculated non-HDL Cholesterol (non-HDL-C) indirectly measures LDL-C, Lp(a), IDL-C, and VLDL-C. It is a surrogate marker for Apoprotein B. Goal should be less than 130 mg/dL. 04/29/2023 4:5 3 AM CDT 04/29/2023 4:54 AM CDT Brian S Jaspreet SUPERINTENDENT COMMISSARY-CHIEF DATA OFFICER LABORATORY ORDERABLE S [facility] [address] [place] [address], * PHOSPHORUS (04/29/2023 4:53 AM CDT) Phosphorus 3.4 2.0 - 4.5 MG/DL 04/29/2023 5:46 AM CDT [facility] DEPT PATH AND LAB MEDICINE BLOOD / Unknown 04/29/2023 4:53 AM CDT 04/29/2023 4:54 AM CDT Hussain Slaughter MD LABORATORY ORDERAB LES [facility] DEPT PATH AND LAB MEDICINE [address] [place] [address], * (ABNORMAL) COMPREHENSIVE METABOLIC PANEL (04/29/2023 4:53 AM CDT) Sodium 143 137 - 147 MMOL/L 04/29/2023 5:46 AM CDT [facility] DEPT PATH AND LAB MEDICINE Potassium 3.5 3.5 - 5.1 MMOL/L 04/29/2023 5:46 AM CDT [facility] DEPT PATH AND LAB MEDICINE Chloride 104 98 - 110 MMOL/L 04/29/2023 5:46 AM CDT [facility] DEPT PATH AND LAB MEDICINE Glucose 101(H) 70 - 100 MG/DL 04/29/2023 5:46 AM CDT [facility] DEPT PATH AND LAB MEDICINE Blood Urea Nitrogen 18 7 - 25 MG/DL 04/29/2023 5:46 AM CDT [facility] DEPT PATH AND LAB MEDICINE Creatinine 0.67 0.4 - 1.00 MG/DL 04/29/2023 5:46 AM CDT [facility] DEPT PATH AND LAB MEDICINE Calcium 8.2(L) 8.5 - 10.6 MG/DL 04/29/2023 5:46 AM CDT [facility] DEPT PATH AND LAB MEDICINE Total Protein 5.8(L) 6.0 - 8.0 G/DL 04/29/2023 5:46 AM CDT [facility] DEPT PATH AND LAB MEDICINE Total Bilirubin 0.6 0.3 - 1.2 MG/DL 04/29/2023 5:46 AM CDT [facility] DEPT PATH AND LAB MEDICINE Albumin 2.9(L) 3.5 - 5.0 G/DL 04/29/2023 5:46 AM CDT [facility] DEPT PATH AND LAB MEDICINE Alk Phosphatase 32 25 - 110 U/L 04/29/2023 5:46 AM CDT [facility] AST (SGOT) 35 7 - 40 U/L 04/29/2023 5:46 AM CDT [facility] DEPT PATH AND LAB MEDICINE CO2 30 21 - 30 MMOL/L 04/29/2023 5:46 AM CDT [facility] DEPT PATH AND LAB MEDICINE ALT (SGPT) 35 7 - 56 U/L 04/29/2023 5:46 AM CDT [facility] DEPT PATH AND LAB MEDICINE Anion Gap 9 3 - 12 04/29/2023 5:46 AM CDT [facility] DEPT PATH AND LAB MEDICINE eGFR >60 >60 mL/min 04/29/2023 5:46 AM CDT [facility] DEPT PATH AND LAB MEDICINE Comment:eGFR calculated nicolás ryder the CKD-EPIcr_R equation BLOOD / Unknown 04/29/2023 4:53 AM CDT 04/29/2023 4:54 AM CDT Hussain Slaughter MD LABORATORY ORDERAB LES [facility] [address] [place] [address], [place] * (ABNORMAL) CBC AND DIFF (04/29/2023 4:53 AM CDT) White Blood Cells 13.4(H) 4.5 - 11.0 K/UL 04/29/2023 5:20 AM CDT [facility] DEPT PATH AND LAB MEDICINE RBC 3.99(L) 4.0 - 5.0 M/UL 04/29/2023 5:20 AM CDT [facility] DEPT PATH AND LAB MEDICINE Hemoglobin 11.6(L) 12.0 - 15.0 GM/DL 04/29/2023 5:20 AM CDT [facility] DEPT PATH AND LAB MEDICINE Hematocrit 34.3(L) 36 - 45 % 04/29/2023 5:20 AM CDT [facility] DEPT PATH AND LAB MEDICINE MCV 86.1 80 - 100 FL 04/29/2023 5:20 AM CDT [facility] DEPT PATH AND LAB MEDICINE MCH 29.0 26 - 34 PG 04/29/2023 5:20 AM CDT [facility] DEPT PATH AND LAB MEDICINE MCHC 33.7 32.0 - 36.0 G/DL 04/29/2023 5:20 AM CDT [facility] DEPT PATH AND LAB MEDICINE RDW 14.2 11 - 15 % 04/29/2023 5:20 AM CDT [facility] DEPT PATH AND LAB MEDICINE Platelet Count 307 150 - 400 K/UL 04/29/2023 5:20 AM CDT [facility] DEPT PATH AND LAB MEDICINE MPV 8.2 7 - 11 FL 04/29/2023 5:20 AM CDT [facility] DEPT PATH AND LAB MEDICINE Neutrophils 77 41 - 77 % 04/29/2023 5:20 AM CDT [facility] DEPT PATH AND LAB MEDICINE Lymphocytes 14(L) 24 - 44 % 04/29/2023 5:20 AM CDT [facility] DEPT PATH AND LAB MEDICINE Monocytes 6 4 - 12 % 04/29/2023 5:20 AM CDT [facility] DEPT PATH AND LAB MEDICINE Eosinophils 3 0 - 5 % 04/29/2023 5:20 AM CDT [facility] DEPT PATH AND LAB MEDICINE Basophils 0 0 - 2 % 04/29/2023 5:20 AM CDT [facility] DEPT PATH AND LAB MEDICINE Absolute Neutrophil Count 10.38(H) 1.8 - 7.0 K/UL 04/29/2023 5:20 AM CDT [facility] DEPT PATH AND LAB MEDICINE Absolute Lymph Count 1.82 1.0 - 4.8 K/UL 04/29/2023 5:20 AM CDT [facility] DEPT PATH AND LAB MEDICINE Absolute Monocyte Count 0.78 0 - 0.80 K/UL 04/29/2023 5:20 AM CDT [facility] DEPT PATH AND LAB MEDICINE Absolute Eosinophil Count 0.35 0 - 0.45 K/UL 04/29/2023 5:20 AM CDT [facility] DEPT PATH AND LAB MEDICINE Absolute Basophil Count 0.03 0 - 0.20 K/UL 04/29/2023 5:20 AM CDT [facility] MED[facility] BLOOD / Unknown 04/29/2023 4:53 AM CDT 04/29/2023 4:54 AM CDT Hussain Slaughter MD LABORATORY ORDERAB LES [facility] PATH AND LAB MEDICINE [address] * MAGNESIUM CELLULAR THERAPEUTICS (04/29/2023 4:53 AM CDT) Magnesium 2.0 1.6 - 2.6 mg/dL 04/29/2023 5:46 AM CDT [facility] PATH AND LAB MEDICINE BLOOD / Unknown 04/29/2023 4:53 AM CDT 04/29/2023 4:54 AM CDT Brian Vogel SUPERINTENDENT COMMISSARY-CHIEF DATA OFFICER LABORATORY ORDERABLE S Performing Organization Address City/[facility]/ZIP Co de Phone Number [facility] PATH AND LAB MEDICINE [address] [place] [address], * POC GLUCOSE (04/29/2023 3:42 AM CDT) Glucose, POC 100 70 - 100 MG/DL 04/29/2023 3:43 AM CDT [facility] PATH AND LAB MEDICINE POC 04/29/2023 3:4 2 AM CDT 04/29/2023 3:43 AM CDT Hussain Slaughter MD OTHER LABORATORY Performing Organization Address City/[facility]/ZIP Co de Phone Number [facility] PATH AND LAB MEDICINE POC [address] [place] [address] * (ABNORMAL) POC GLUCOSE (04/28/2023 8:54 PM CDT) Glucose, POC 117(H) 70 - 100 MG/DL 04/28/2023 8:56 PM CDT [facility] MEDIC[facility] POC 04/28/2023 8:5 4 PM CDT 04/28/2023 8:56 PM CDT Hussain Slaughter MD OTHER LABORATORY Performing Organization Address [facility] Co de Phone Number [facility] PATH AND LAB MEDICINE POC [address] [place] [address] * POC GLUCOSE (04/28/2023 3:40 PM CDT) [facility] Glucose, POC 97 70 - 100 MG/DL 04/28/2023 3:41 PM CDT [facility] LAB MEDIC[facility] POC 04/28/2023 3:4 0 PM CDT 04/28/2023 3:41 PM CDT Hussain Slaughter MD OTHER LABORATORY Performing Organization Address [facility] de Phone Number [facility] PATH AND LAB MEDICINE POC [address] [place] [address] * US DOPPLER VENOUS LEFT (04/28/2023 3:10 [...] on 04/28/2023 3:13 PM. Hussain Slaughter MD US ORDERABLES * CHEST 2 VIEWS (04/28/2023 2:52 [...] Slaughter MD DIAGNOSTIC IMAGING ORDERABLES * (ABNORMAL) POC GLUCOSE (04/28/2023 12:34 PM CDT) Glucose, POC 196(H) 70 - 100 MG/DL 04/28/2023 12:35 PM CDT [facility] PATH [facility] LAB MEDICINE POC 04/28/2023 12:3 4 PM CDT 04/28/2023 12:35 PM CDT Hussain Slaughter MD OTHER LABORATORY [facility] MEDIC[facility] POC [address] [place] [address] * POC GLUCOSE (04/28/2023 7:48 AM CDT) Glucose, POC 96 70 - 100 MG/DL 04/28/2023 7:50 AM CDT [facility] PATH [facility] LAB MEDICINE POC 04/28/2023 7:4 8 AM CDT 04/28/2023 7:50 AM CDT Hussain Slaughter MD OTHER LABORATORY Performing Organization Address City/[facility] Co de Phone Number [facility] PATH AND LAB MEDICINE POC [address] [place] [address] * (ABNORMAL) NT-PRO-BNP (04/28/2023 5:44 AM CDT) NT-Pro-BNP 7,917.0(H) <450 pg/mL 04/28/2023 12:32 PM CDT [facility] PATH [facility] LAB MEDICINE Comment: NOTE: Normal reference ranges for NT-proBNP vary by age: <125 pg/mL for individuals < 75 years old <450 pg/mL for individuals =/> 75 years old 04/28/2023 5:4 4 AM CDT 04/28/2023 5:45 AM CDT Brian Vogel SUPERINTENDENT COMMISSARY-CHIEF DATA OFFICER LABORATORY ORDERABLE S Performing Organization Address [facility] Co de Phone Number [facility] PATH [facility] LAB MEDICINE [address] * PHOSPHORUS (04/28/2023 5:44 AM CDT) Phosphorus 3.8 2.0 - 4.5 MG/DL 04/28/2023 8:49 AM CDT [facility] PATH [facility] LAB MEDICINE 04/28/2023 5:4 4 AM CDT 04/28/2023 5:45 AM CDT Brian Vogel SUPERINTENDENT COMMISSARY-CHIEF DATA OFFICER LABORATORY ORDERABLE S Performing Organization Address [facility] Co de Phone Number [facility] MEDICINE [address] * (ABNORMAL) COMPREHENSIVE METABOLIC PANEL (04/28/2023 5:44 AM CDT) Sodium 143 137 - 147 MMOL/L 04/28/2023 6:31 AM CDT [facility] PATH [facility] LAB MEDICINE Potassium 3.9 3.5 - 5.1 MMOL/L 04/28/2023 6:31 AM CDT [facility] DEPT PATH AND LAB MEDICINE Chloride 103 98 - 110 MMOL/L 04/28/2023 6:31 AM CDT [facility] DEPT PATH AND LAB MEDICINE Glucose 109(H) 70 - 100 MG/DL 04/28/2023 6:31 AM CDT [facility] DEPT PATH AND LAB MEDICINE Blood Urea Nitrogen 19 7 - 25 MG/DL 04/28/2023 6:31 AM CDT [facility] DEPT PATH AND LAB MEDICINE Creatinine 0.58 0.4 - 1.00 MG/DL 04/28/2023 6:31 AM CDT [facility] DEPT PATH AND LAB MEDICINE Calcium 8.7 8.5 - 10.6 MG/DL 04/28/2023 6:31 AM CDT [facility] DEPT PATH AND LAB MEDICINE Total Protein 5.6(L) 6.0 - 8.0 G/DL 04/28/2023 6:31 AM CDT [facility] DEPT PATH AND LAB MEDICINE Total Bilirubin 0.7 0.3 - 1.2 MG/DL 04/28/2023 6:31 AM CDT [facility] DEPT PATH AND LAB MEDICINE Albumin 2.9(L) 3.5 - 5.0 G/DL 04/28/2023 6:31 AM CDT [facility] DEPT PATH AND LAB MEDICINE Alk Phosphatase 32 25 - 110 U/L 04/28/2023 6:31 AM CDT [facility] DEPT PATH AND LAB MEDICINE AST (SGOT) 28 7 - 40 U/L 04/28/2023 6:31 AM CDT [facility] DEPT PATH AND LAB MEDICINE CO2 30 21 - 30 MMOL/L 04/28/2023 6:31 AM CDT [facility] DEPT PATH AND LAB MEDICINE ALT (SGPT) 30 7 - 56 U/L 04/28/2023 6:31 AM CDT [facility] DEPT PATH AND LAB MEDICINE Anion Gap 10 3 - 12 04/28/2023 6:31 AM CDT [facility] DEPT PATH AND LAB MEDICINE eGFR >60 >60 mL/min 04/28/2023 6:31 AM CDT [facility] DE[facility] PATH AND LAB MEDICINE Comment:eGFR calculated nicolás ryder the CKD-EPIcr_R equation BLOOD / Unknown 04/28/2023 5:44 AM CDT 04/28/2023 5:45 AM CDT Gabriela Lombardi SUPERINTENDENT COMMISSARY-CHIEF DATA OFFICER LABORATORY ORDERABLES [facility] DEPT PATH AND LAB MEDICINE [address] [place] [address], [place] * (ABNORMAL) CBC AND DIFF (04/28/2023 5:44 AM CDT) White Blood Cells 11.8(H) 4.5 - 11.0 K/UL 04/28/2023 6:00 AM CDT [facility] DE[facility] PATH AND LAB MEDICINE RBC 4.21 4.0 - 5.0 M/UL 04/28/2023 6:00 AM CDT [facility] DEPT PATH AND LAB MEDICINE Hemoglobin 12.1 12.0 - 15.0 GM/DL 04/28/2023 6:00 AM CDT [facility] PATH AND LAB MEDICINE Hematocrit 36.3 36 - 45 % 04/28/2023 6:00 AM CDT [facility] DE[facility] PATH AND LAB MEDICINE MCV 86.3 80 - 100 FL 04/28/2023 6:00 AM CDT [facility] DE[facility] PATH AND LAB MEDICINE MCH 28.8 26 - 34 PG 04/28/2023 6:00 AM CDT [facility] DEPT PATH AND LAB MEDICINE MCHC 33.4 32.0 - 36.0 G/DL 04/28/2023 6:00 AM CDT [facility] DEPT PATH AND LAB MEDICINE RDW 14.1 11 - 15 % 04/28/2023 6:00 AM CDT [facility] DE[facility] PATH AND LAB MEDICINE Platelet Count 288 150 - 400 K/UL 04/28/2023 6:00 AM CDT [facility] DEPT PATH AND LAB MEDICINE MPV 8.1 7 - 11 FL 04/28/2023 6:00 AM CDT [facility] DE[facility] PATH AND LAB MEDICINE Neutrophils 76 41 - 77 % 04/28/2023 8:22 AM CDT [facility] DEPT PATH AND LAB MEDICINE Lymphocytes 14(L) 24 - 44 % 04/28/2023 8:22 AM CDT [facility] DEPT PATH AND LAB MEDICINE Monocytes 7 4 - 12 % 04/28/2023 8:22 AM CDT [facility] DEPT PATH AND LAB MEDICINE Eosinophils 3 0 - 5 % 04/28/2023 8:22 AM CDT [facility] DEPT PATH AND LAB MEDICINE Basophils 0 0 - 2 % 04/28/2023 8:22 AM CDT [facility] DEPT PATH AND LAB MEDICINE Absolute Neutrophil Count 9.08(H) 1.8 - 7.0 K/UL 04/28/2023 8:22 AM CDT [facility] DEPT PATH AND LAB MEDICINE Absolute Lymph Count 1.65 1.0 - 4.8 K/UL 04/28/2023 8:22 AM CDT [facility] DEPT PATH AND LAB MEDICINE Absolute Monocyte Count 0.77 0 - 0.80 K/UL 04/28/2023 8:22 AM CDT [facility] DEPT PATH AND LAB MEDICINE Absolute Eosinophil Count 0.32 0 - 0.45 K/UL 04/28/2023 8:22 AM CDT [facility] PATH AND LAB MEDICINE Absolute Basophil Count 0.02 0 - 0.20 K/UL 04/28/2023 8:22 AM CDT [facility] DE[facility] PATH AND LAB MEDICINE BLOOD / Unknown 04/28/2023 5:44 AM CDT 04/28/2023 5:45 AM CDT Gabriela Lombardi SUPERINTENDENT COMMISSARY-CHIEF DATA OFFICER LABORATORY ORDERABLES Performing Organization Address City/State/[facility] Co de Phone Number [facility] [address] [place] [address], * MAGNESIUM CELLULAR THERAPEUTICS (04/28/2023 5:44 AM CDT) Magnesium 1.9 1.6 - 2.6 mg/dL 04/28/2023 6:31 AM CDT [facility] DEPT PATH AND LAB MEDICINE BLOOD / Unknown 04/28/2023 5:44 AM CDT 04/28/2023 5:45 AM CDT Brian Vogel SUPERINTENDENT COMMISSARY-CHIEF DATA OFFICER LABORATORY ORDERABLE S [facility] DEPT PATH AND LAB MEDICINE [address] [place] [address], [place] * (ABNORMAL) POC GLUCOSE (04/28/2023 4:53 AM CDT) Glucose, POC 132(H) 70 - 100 MG/DL 04/28/2023 4:55 AM CDT [facility] DE[facility] PATH AND LAB MEDICINE POC 04/28/2023 4:5 3 AM CDT 04/28/2023 4:55 AM CDT Hussain Snyder MD OTHER LABORATORY Performing Organization Address City/[facility]/ZIP Co de Phone Number [facility] [address] [place] [address] * (ABNORMAL) POC GLUCOSE (04/28/2023 12:28 AM CDT) Glucose, POC 124(H) 70 - 100 MG/DL 04/28/2023 12:40 AM CDT [facility] DEPT PATH AND LAB MEDICINE POC 04/28/2023 12:2 8 AM CDT 04/28/2023 12:40 AM CDT Hussain Snyder MD OTHER LABORATORY Performing Organization Address City/[facility]/ZIP Co de Phone Number [facility] P[facility] [address] [place] [address] * (ABNORMAL) POC GLUCOSE (04/27/2023 8:32 PM CDT) Glucose, POC 127(H) 70 - 100 MG/DL 04/27/2023 8:33 PM CDT [facility] DEPT PATH AND LAB MEDICINE POC 04/27/2023 8:3 2 PM CDT 04/27/2023 8:33 PM CDT Hussain Snyder MD OTHER LABORATORY [facility] DEPT PATH AND LAB MEDICINE POC [address] [place] [address] * (ABNORMAL) POC GLUCOSE (04/27/2023 5:18 PM CDT) Glucose, POC 109(H) 70 - 100 MG/DL 04/27/2023 5:19 PM CDT [facility] MED[facility] POC 04/27/2023 5:1 8 PM CDT 04/27/2023 5:19 PM CDT Hussain Snyder MD OTHER LABORATORY [facility] PATH AND LAB MEDICINE POC [address] [place] [address] * (ABNORMAL) POC GLUCOSE (04/27/2023 12:38 PM CDT) Glucose, POC 135(H) 70 - 100 MG/DL 04/27/2023 12:39 PM CDT [facility] POC 04/27/2023 12:3 8 PM CDT 04/27/2023 12:39 PM CDT Hussain Snyder MD OTHER LABORATORY Performing Organization Address City/[facility]/ZIP Co de Phone Number [facility] PATH AND LAB MEDICINE POC [address] [place] [address] * (ABNORMAL) POC GLUCOSE (04/27/2023 9:03 AM CDT) Glucose, POC 124(H) 70 - 100 MG/DL 04/27/2023 9:05 AM CDT [facility] PATH AND LAB MEDICINE POC 04/27/2023 9:0 3 AM CDT 04/27/2023 9:05 AM CDT Hussain Snyder MD OTHER LABORATORY Performing Organization Address City/[facility]/ZIP Co de Phone Number [facility] PATH AND LAB MEDICINE POC [address] [place] [address] * (ABNORMAL) COMPREHENSIVE METABOLIC PANEL (04/27/2023 5:02 AM CDT) Sodium 145 137 - 147 MMOL/L 04/27/2023 6:01 AM CDT [facility] DEPT PATH AND LAB MEDICINE Potassium 3.6 3.5 - 5.1 MMOL/L 04/27/2023 6:01 AM CDT [facility] DEPT PATH AND LAB MEDICINE Chloride 102 98 - 110 MMOL/L 04/27/2023 6:01 AM CDT [facility] DE[facility] PATH AND LAB MEDICINE Glucose 117(H) 70 - 100 MG/DL 04/27/2023 6:01 AM CDT [facility] DEPT PATH AND LAB MEDICINE Blood Urea Nitrogen 22 7 - 25 MG/DL 04/27/2023 6:01 AM CDT [facility] DE[facility] PATH AND LAB MEDICINE Creatinine 0.56 0.4 - 1.00 MG/DL 04/27/2023 6:01 AM CDT [facility] DE[facility] PATH AND LAB MEDICINE Calcium 8.5 8.5 - 10.6 MG/DL 04/27/2023 6:01 AM CDT [facility] DEPT PATH AND LAB MEDICINE Total Protein 5.6(L) 6.0 - 8.0 G/DL 04/27/2023 6:01 AM CDT [facility] DEPT PATH AND LAB MEDICINE Total Bilirubin 0.7 0.3 - 1.2 MG/DL 04/27/2023 6:01 AM CDT [facility] DE[facility] PATH AND LAB MEDICINE Albumin 3.0(L) 3.5 - 5.0 G/DL 04/27/2023 6:01 AM CDT [facility] DE[facility] PATH AND LAB MEDICINE Alk Phosphatase 39 25 - 110 U/L 04/27/2023 6:01 AM CDT [facility] DE[facility] PATH AND LAB MEDICINE AST (SGOT) 26 7 - 40 U/L 04/27/2023 6:01 AM CDT [facility] DEPT PATH AND LAB MEDICINE CO2 36(H) 21 - 30 MMOL/L 04/27/2023 6:01 AM CDT [facility] PATH [facility] LAB MEDICINE ALT (SGPT) 30 7 - 56 U/L 04/27/2023 6:01 AM CDT [facility] DE[facility] PATH AND LAB MEDICINE Anion Gap 7 3 - 12 04/27/2023 6:01 AM CDT [facility] DE[facility] PATH AND LAB MEDICINE eGFR >60 >60 mL/min 04/27/2023 6:01 AM CDT [facility] DEPT PATH AND LAB MEDICINE Comment:eGFR calculated nicolás ryder the CKD-EPIcr_R equation BLOOD / Unknown 04/27/2023 5:02 AM CDT 04/27/2023 5:03 AM CDT Gabriela Lombardi [employer] LABORATORY ORDERABLES [facility] DEPT PATH AND LAB MEDICINE [address] [place] [address], [place] * (ABNORMAL) CBC AND DIFF (04/27/2023 5:02 AM CDT) White Blood Cells 14.2(H) 4.5 - 11.0 K/UL 04/27/2023 5:35 AM CDT [facility] DEPT PATH AND LAB MEDICINE RBC 4.19 4.0 - 5.0 M/UL 04/27/2023 5:35 AM CDT [facility] DEPT PATH AND LAB MEDICINE Hemoglobin 12.1 12.0 - 15.0 GM/DL 04/27/2023 5:35 AM CDT [facility] DEPT PATH AND LAB MEDICINE Hematocrit 36.2 36 - 45 % 04/27/2023 5:35 AM CDT [facility] DEPT PATH AND LAB MEDICINE MCV 86.5 80 - 100 FL 04/27/2023 5:35 AM CDT [facility] DEPT PATH AND LAB MEDICINE MCH 28.9 26 - 34 PG 04/27/2023 5:35 AM CDT [facility] DEPT PATH AND LAB MEDICINE MCHC 33.4 32.0 - 36.0 G/DL 04/27/2023 5:35 AM CDT [facility] DEPT PATH AND LAB MEDICINE RDW 14.1 11 - 15 % 04/27/2023 5:35 AM CDT [facility] DEPT PATH AND LAB MEDICINE Platelet Count 294 150 - 400 K/UL 04/27/2023 5:35 AM CDT [facility] DEPT PATH AND LAB MEDICINE MPV 8.5 7 - 11 FL 04/27/2023 5:35 AM CDT [facility] DEPT PATH AND LAB MEDICINE Neutrophils 78(H) 41 - 77 % 04/27/2023 8:43 AM CDT [facility] DEPT PATH AND LAB MEDICINE Lymphocytes 16(L) 24 - 44 % 04/27/2023 8:43 AM CDT [facility] DEPT PATH AND LAB MEDICINE Monocytes 4 4 - 12 % 04/27/2023 8:43 AM CDT [facility] DEPT PATH AND LAB MEDICINE Eosinophils 2 0 - 5 % 04/27/2023 8:43 AM CDT [facility] DEPT PATH AND LAB MEDICINE Basophils 0 0 - 2 % 04/27/2023 8:43 AM CDT [facility] DEPT PATH AND LAB MEDICINE Absolute Neutrophil Count 11.72(H) 1.8 - 7.0 K/UL 04/27/2023 8:43 AM CDT [facility] DEPT PATH AND LAB MEDICINE Absolute Lymph Count 2.35 1.0 - 4.8 K/UL 04/27/2023 8:43 AM CDT [facility] DEPT PATH AND LAB MEDICINE Absolute Monocyte Count 0.62 0 - 0.80 K/UL 04/27/2023 8:43 AM CDT [facility] DEPT PATH AND LAB MEDICINE Absolute Eosinophil Count 0.29 0 - 0.45 K/UL 04/27/2023 8:43 AM CDT [facility] DEPT PATH AND LAB MEDICINE Absolute Basophil Count 0.04 0 - 0.20 K/UL 04/27/2023 8:43 AM CDT [facility] DEPT PATH AND LAB MEDICINE BLOOD / Unknown 04/27/2023 5:02 AM CDT 04/27/2023 5:03 AM CDT Gabriela Lombardi SUPERINTENDENT COMMISSARY-CHIEF DATA OFFICER LABORATORY ORDERABLES [facility] DEPT PATH AND LAB MEDICINE [address] [place] [address], * PHOSPHORUS CELLULAR THERAPEUTICS (04/27/2023 5:02 AM CDT) Phosphorus 2.7 2.0 - 4.5 MG/DL 04/27/2023 6:01 AM CDT [facility] DEPT PATH AND LAB MEDICINE BLOOD / Unknown 04/27/2023 5:02 AM CDT 04/27/2023 5:03 AM CDT Brian Vogel SUPERINTENDENT COMMISSARY-CHIEF DATA OFFICER LABORATORY ORDERABLE S [facility] [address] [place] [address], * MAGNESIUM CELLULAR THERAPEUTICS (04/27/2023 5:02 AM CDT) Magnesium 1.9 1.6 - 2.6 mg/dL 04/27/2023 6:01 AM CDT [facility] BLOOD / Unknown 04/27/2023 5:02 AM CDT 04/27/2023 5:03 AM CDT Brian Vogel SUPERINTENDENT COMMISSARY-CHIEF DATA OFFICER LABORATORY ORDERABLE S Performing Organization Address City/[facility] Co de Phone Number [facility] [address] [place] [address], * (ABNORMAL) POC GLUCOSE (04/27/2023 4:53 AM CDT) Glucose, POC 116(H) 70 - 100 MG/DL 04/27/2023 4:55 AM CDT [facility] MEDIC[facility] POC 04/27/2023 4:5 3 AM CDT 04/27/2023 4:55 AM CDT Hussain Jorge DO OTHER LABORATORY [facility] PATH [facility] LAB MEDICINE POC [address] [place] [address] * POC GLUCOSE (04/27/2023 12:42 AM CDT) Glucose, POC 100 70 - 100 MG/DL 04/27/2023 12:51 AM CDT [facility] PATH [facility] LAB MEDICINE POC 04/27/2023 12:4 2 AM CDT 04/27/2023 12:51 AM CDT Husasin Jorge DO OTHER LABORATORY Performing Organization Address City/[facility]/ZIP Co de Phone Number [facility] [facility] POC [address] [place] [address] * (ABNORMAL) POC GLUCOSE (04/26/2023 9:14 PM CDT) Glucose, POC 144(H) 70 - 100 MG/DL 04/26/2023 9:16 PM CDT [facility] DEPT PATH AND LAB MEDICINE POC 04/26/2023 9:1 4 PM CDT 04/26/2023 9:15 PM CDT Hussain Jorge DO OTHER LABORATORY Performing Organization Address City/[facility] Co de Phone Number [facility] POC [address] [place] [address] * (ABNORMAL) POC GLUCOSE (04/26/2023 8:23 PM CDT) Glucose, POC 149(H) 70 - 100 MG/DL 04/26/2023 8:25 PM CDT [facility] MEDIC[facility] POC 04/26/2023 8:2 3 PM CDT 04/26/2023 8:25 PM CDT Hussain Jorge DO OTHER LABORATORY Performing Organization Address [facility] Co de Phone Number [facility] POC [address] [place] [address] * (ABNORMAL) POC GLUCOSE (04/26/2023 11:54 AM CDT) Glucose, POC 188(H) 70 - 100 MG/DL 04/26/2023 3:33 PM CDT [facility] MEDIC[facility] POC 04/26/2023 11:5 4 AM CDT 04/26/2023 3:33 PM CDT Hussain Jorge DO OTHER LABORATORY Performing Organization Address City/[facility]/ZIP Co de Phone Number [employer] [facility]FR[facility] POC [address] [place] [address] * (ABNORMAL) POC GLUCOSE (04/26/2023 9:18 AM CDT) Glucose, POC 194(H) 70 - 100 MG/DL 04/26/2023 9:26 AM CDT [facility] DEPT PATH AND LAB MEDICINE POC 04/26/2023 9:1 8 AM CDT 04/26/2023 9:26 AM CDT Rasta Quinones MD OTHER LABORATORY [facility] POC [address] [place] [address] * (ABNORMAL) BLOOD GASES, PERIPHERAL VENOUS (04/26/2023 9:13 AM CDT) pH-Venous 7.41(H) 7.30 - 7.40 04/26/2023 9:33 AM CDT [facility] DEPT PATH AND LAB MEDICINE PCO2-Venous 53(H) 36 - 50 MMHG 04/26/2023 9:33 AM CDT [facility] DE[facility] PATH AND LAB MEDICINE PO2-Venous 42 33 - 48 MMHG 04/26/2023 9:33 AM CDT [facility] DEPT PATH AND LAB MEDICINE Base Excess-Venous 6.8 MMOL/L 04/26/2023 9:33 AM CDT [facility] DE[facility] PATH AND LAB MEDICINE O2 Sat-Venous 75.4(H) 55 - 71 % 04/26/2023 9:33 AM CDT [facility] DEPT PATH AND LAB MEDICINE Bicarbonate-VE N-Shahab 30.1 MMOL/L 04/26/2023 9:33 AM CDT [facility] DEPT PATH AND LAB MEDICINE BLOOD / Unknown 04/26/2023 9:13 AM CDT 04/26/2023 9:31 AM CDT Desiree ALEJANDRO OTHER LABORATOR Y [facility] [address] [place] [address], * (ABNORMAL) AMMONIA (04/26/2023 9:13 AM CDT) Ammonia 46(H) 9 - 35 MCMOL/L 04/26/2023 9:53 AM CDT [facility] DEPT PATH AND LAB MEDICINE BLOOD / Unknown 04/26/2023 9:13 AM CDT 04/26/2023 9:31 AM CDT Desiree Ross APRN-W[facility] LABORATORY RITA SCHULTE [facility]IC[facility] [address] * (ABNORMAL) POC GLUCOSE (04/26/2023 4:12 AM CDT) Glucose, POC 177(H) 70 - 100 MG/DL 04/26/2023 4:13 AM CDT [facility] DEPT PATH AND LAB MEDICINE POC 04/26/2023 4:1 2 AM CDT 04/26/2023 4:13 AM CDT Briana Noel MD OTHER LABORATORY [facility] PATH [facility] MEDIC[facility] POC [address] [place] [address] * (ABNORMAL) COMPREHENSIVE METABOLIC PANEL (04/26/2023 2:17 AM CDT) Sodium 146 137 - 147 MMOL/L 04/26/2023 3:23 AM CDT [facility] DEPT PATH AND LAB MEDICINE Potassium 4.0 3.5 - 5.1 MMOL/L 04/26/2023 3:23 AM CDT [facility] DEPT PATH AND LAB MEDICINE Chloride 109 98 - 110 MMOL/L 04/26/2023 3:23 AM CDT [facility] DEPT PATH AND LAB MEDICINE Glucose 150(H) 70 - 100 MG/DL 04/26/2023 3:23 AM CDT [facility] DEPT PATH AND LAB MEDICINE Blood Urea Nitrogen 33(H) 7 - 25 MG/DL 04/26/2023 3:23 AM CDT [facility] DEPT PATH AND LAB MEDICINE Creatinine 0.62 0.4 - 1.00 MG/DL 04/26/2023 3:23 AM CDT [facility] DEPT PATH AND LAB MEDICINE Calcium 8.6 8.5 - 10.6 MG/DL 04/26/2023 3:23 AM CDT [facility] DEPT PATH AND LAB MEDICINE Total Protein 5.7(L) 6.0 - 8.0 G/DL 04/26/2023 3:23 AM CDT [facility] DEPT PATH AND LAB MEDICINE Total Bilirubin 0.5 0.3 - 1.2 MG/DL 04/26/2023 3:23 AM CDT [facility] DEPT PATH AND LAB MEDICINE Albumin 3.3(L) 3.5 - 5.0 G/DL 04/26/2023 3:23 AM CDT [facility] DEPT PATH AND LAB MEDICINE Alk Phosphatase 53 25 - 110 U/L 04/26/2023 3:23 AM CDT [facility] DEPT PATH AND LAB MEDICINE AST (SGOT) 24 7 - 40 U/L 04/26/2023 3:23 AM CDT [facility] DEPT PATH AND LAB MEDICINE CO2 29 21 - 30 MMOL/L 04/26/2023 3:23 AM CDT [facility] DEPT PATH AND LAB MEDICINE ALT (SGPT) 31 7 - 56 U/L 04/26/2023 3:23 AM CDT [facility] DEPT PATH AND LAB MEDICINE Anion Gap 8 3 - 12 04/26/2023 3:23 AM CDT [facility] DEPT PATH AND LAB MEDICINE eGFR >60 >60 mL/min 04/26/2023 3:23 AM CDT [facility] DEPT PATH AND LAB MEDICINE Comment:eGFR calculated nicolás ryder the CKD-EPIcr_R equation BLOOD / Unknown 04/26/2023 2:17 AM CDT 04/26/2023 2:33 AM CDT Gabriela Lombardi SUPERINTENDENT COMMISSARY-CHIEF DATA OFFICER LABORATORY ORDERABLES [facility] [address] [place] [address], [place] * (ABNORMAL) CBC AND DIFF (04/26/2023 2:17 AM CDT) [facility] White Blood Cells 13.8(H) 4.5 - 11.0 K/UL 04/26/2023 2:45 AM CDT [facility] DEPT PATH AND LAB MEDICINE RBC 4.08 4.0 - 5.0 M/UL 04/26/2023 2:45 AM CDT [facility] DEPT PATH AND LAB MEDICINE Hemoglobin 11.7(L) 12.0 - 15.0 GM/DL 04/26/2023 2:45 AM CDT [facility] DEPT PATH AND LAB MEDICINE Hematocrit 35.5(L) 36 - 45 % 04/26/2023 2:45 AM CDT [facility] DEPT PATH AND LAB MEDICINE MCV 86.9 80 - 100 FL 04/26/2023 2:45 AM CDT [facility] DEPT PATH AND LAB MEDICINE MCH 28.7 26 - 34 PG 04/26/2023 2:45 AM CDT [facility] DEPT PATH AND LAB MEDICINE MCHC 33.0 32.0 - 36.0 G/DL 04/26/2023 2:45 AM CDT [facility] DEPT PATH AND LAB MEDICINE RDW 14.2 11 - 15 % 04/26/2023 2:45 AM CDT [facility] DEPT PATH AND LAB MEDICINE Platelet Count 248 150 - 400 K/UL 04/26/2023 2:45 AM CDT [facility] DEPT PATH AND LAB MEDICINE MPV 8.9 7 - 11 FL 04/26/2023 2:45 AM CDT [facility] DEPT PATH AND LAB MEDICINE Neutrophils 82(H) 41 - 77 % 04/26/2023 3:41 AM CDT [facility] DEPT PATH AND LAB MEDICINE Lymphocytes 8(L) 24 - 44 % 04/26/2023 3:41 AM CDT [facility] DEPT PATH AND LAB MEDICINE Monocytes 9 4 - 12 % 04/26/2023 3:41 AM CDT [facility] DEPT PATH AND LAB MEDICINE Eosinophils 1 0 - 5 % 04/26/2023 3:41 AM CDT [facility] DEPT PATH AND LAB MEDICINE Basophils 0 0 - 2 % 04/26/2023 3:41 AM CDT [facility] DEPT PATH AND LAB MEDICINE Absolute Neutrophil Count 11.40(H) 1.8 - 7.0 K/UL 04/26/2023 3:41 AM CDT [facility] DEPT PATH AND LAB MEDICINE Absolute Lymph Count 1.10 1.0 - 4.8 K/UL 04/26/2023 3:41 AM CDT [facility] DEPT PATH AND LAB MEDICINE Absolute Monocyte Count 1.21(H) 0 - 0.80 K/UL 04/26/2023 3:41 AM CDT [facility] DEPT PATH AND LAB MEDICINE Absolute Eosinophil Count 0.10 0 - 0.45 K/UL 04/26/2023 3:41 AM CDT [facility] DEPT PATH AND LAB MEDICINE Absolute Basophil Count 0.02 0 - 0.20 K/UL 04/26/2023 3:41 AM CDT [facility] DEPT PATH AND LAB MEDICINE BLOOD / Unknown 04/26/2023 2:17 AM CDT 04/26/2023 2:33 AM CDT Gabriela Lombardi SUPERINTENDENT COMMISSARY-CHIEF DATA OFFICER LABORATORY ORDERABLES Performing Organization Address City/[facility]/ZIP Co de Phone Number [facility] PATH [facility] MEDIC[facility] [address] [place] [id number], [place] * (ABNORMAL) PHOSPHORUS CELLULAR THERAPEUTICS (04/26/2023 2:17 AM CDT) [facility] Phosphorus 1.4(LL) 2.0 - 4.5 MG/DL 04/26/2023 3:23 AM CDT [facility] DEPT PATH AND LAB MEDICINE Comment: CRITICAL VALUE CALLED TO AND READ BACK BY/TIME/TECH BRADLEY DIAZ at 04/26/2023 03:22:50 by [id number] BLOOD / Unknown 04/26/2023 2:17 AM CDT 04/26/2023 2:33 AM CDT Brian Vogel SUPERINTENDENT COMMISSARY-CHIEF DATA OFFICER LABORATORY ORDERABLE S [facility] PATH AND LAB MEDICINE [address] [place] [address], [place] * MAGNESIUM CELLULAR THERAPEUTICS (04/26/2023 2:17 AM CDT) Pathologist [facility] Magnesium 2.1 1.6 - 2.6 mg/dL 04/26/2023 3:23 AM CDT [facility] PATH [facility] LAB MEDIC[facility] BLOOD / Unknown 04/26/2023 2:17 AM CDT 04/26/2023 2:33 AM CDT Brian Mina Jsapreet SUPERINTENDENT COMMISSARY-CHIEF DATA OFFICER LABORATORY ORDERABLE S [facility] PATH AND LAB MEDICINE [address] * (ABNORMAL) HEMOGLOBIN A1C (04/26/2023 2:17 AM CDT) Hemoglobin A1C 6.4(H) 4.0 - 5.7 % 04/26/2023 6:25 AM CDT [facility] PATH [facility] LAB MEDICINE Comment: The ADA recommends that most patients with type 1 and type 2 diabetes maintain an A1c level <7%. BLOOD / Unknown 04/26/2023 2:17 AM CDT 04/26/2023 2:33 AM CDT Gabriela Lombardi SUPERINTENDENT COMMISSARY-CHIEF DATA OFFICER LABORATORY ORDERABLES Performing Organization Address City/[facility]/ZIP Co de Phone Number [facility] PATH AND LAB MEDICINE [address] * (ABNORMAL) POC GLUCOSE (04/25/2023 11:54 PM CDT) Glucose, POC 195(H) 70 - 100 MG/DL 04/25/2023 11:56 PM CDT [facility] PATH AND LAB MEDICINE POC 04/25/2023 11:5 4 PM CDT 04/25/2023 11:56 PM CDT Briana Noel MD OTHER LABORATORY [facility] PATH AND LAB MEDICINE POC [address] [place] [address] * ECG 12-LEAD (04/25/2023 9:38 PM CDT) [...] for LVH, may be normal variant ( Derek product ) Anteroseptal infarct (cited on or [...] for LVH, may be normal variant ( [place] product) Anteroseptal infarct (cited on or before 25-APR-2023) ST & T wave abnormality, consider inferior ischemia Abnormal ECG When compared with ECG of 24-APR-2023 12:24, Sinus rhythm has replaced Atrial fibrillation Serial changes of Anteroseptal infarct present Confirmed by Reji Schilling ([id number]) on 04/25/2023 11:22:39 PM Brian Vogel SUPERINTENDENT COMMISSARY-CHIEF DATA OFFICER ECG ORDERABLES [employer] [facility] * (ABNORMAL) POC GLUCOSE (04/25/2023 7:57 PM CDT) Pathologist [facility] Glucose, POC 214(H) 70 - 100 MG/DL 04/25/2023 7:58 PM CDT [facility] DE[facility] PATH AND LAB MEDICINE POC 04/25/2023 7:5 7 PM CDT 04/25/2023 7:58 PM CDT Briana Noel MD OTHER LABORATORY [facility] DEPT PATH AND LAB MEDICINE POC [address] [place] [address] * (ABNORMAL) BASIC METABOLIC PANEL (04/25/2023 4:31 PM CDT) Sodium 148(H) 137 - 147 MMOL/L 04/25/2023 5:27 PM CDT [facility] DEPT PATH AND LAB MEDICINE Potassium 4.0 3.5 - 5.1 MMOL/L 04/25/2023 5:27 PM CDT [facility] DEPT PATH AND LAB MEDICINE Chloride 110 98 - 110 MMOL/L 04/25/2023 5:27 PM CDT [facility] DE[facility] PATH AND LAB MEDICINE CO2 30 21 - 30 MMOL/L 04/25/2023 5:27 PM CDT [facility] PATH AND LAB MEDICINE Anion Gap 8 3 - 12 04/25/2023 5:27 PM CDT [facility] DE[facility] PATH AND LAB MEDICINE Glucose 219(H) 70 - 100 MG/DL 04/25/2023 5:27 PM CDT [facility] DEPT PATH AND LAB MEDICINE Blood Urea Nitrogen 37(H) 7 - 25 MG/DL 04/25/2023 5:27 PM CDT [facility] DE[facility] PATH AND LAB MEDICINE Creatinine 0.73 0.4 - 1.00 MG/DL 04/25/2023 5:27 PM CDT [facility] DEPT PATH AND LAB MEDICINE Calcium 8.6 8.5 - 10.6 MG/DL 04/25/2023 5:27 PM CDT [facility] DEPT PATH AND LAB MEDICINE eGFR >60 >60 mL/min 04/25/2023 5:27 PM CDT [facility] DE[facility] PATH AND LAB MEDICINE Comment:eGFR calculated nicolsá ryder the CKD-EPIcr_R equation BLOOD / Unknown 04/25/2023 4:31 PM CDT 04/25/2023 4:38 PM CDT Gabriela Lombardi SUPERINTENDENT COMMISSARY-CHIEF DATA OFFICER LABORATORY ORDERABLES [facility] PATH [facility] MEDICINE [address] * (ABNORMAL) POC GLUCOSE (04/25/2023 4:30 PM CDT) Glucose, POC 205(H) 70 - 100 MG/DL 04/25/2023 4:32 PM CDT [facility] DEPT PATH AND LAB MEDICINE POC 04/25/2023 4:3 0 PM CDT 04/25/2023 4:32 PM CDT Briana Noel MD OTHER LABORATORY Performing Organization Address [facility] Co de Phone Number [facility] PATH [facility] LAB MEDIC[facility] POC [address] [place] [address] * C DIFFICILE BY PCR (04/25/2023 8:08 AM CDT) C. difficile Toxin B PCR Negative: Repeat testing within 7 days of a negative result will not be performed. Testing after 7 days may be performed if clinically indicated. 04/25/2023 9:51 AM CDT [facility] DEPT PATH AND LAB MEDICINE Feces FECES / Unknown 04/25/2023 8:08 AM CDT 04/25/2023 8:37 AM CDT Gabriela Lombardi SUPERINTENDENT COMMISSARY-CHIEF DATA OFFICER MICROBIOLOG Y ORDERABLES Performing Organization Address [facility] Co de Phone Number [facility] PATH [facility] LAB MEDICINE [address] * (ABNORMAL) PHOSPHORUS CELLULAR THERAPEUTICS (04/25/2023 2:11 AM CDT) Phosphorus 1.9(L) 2.0 - 4.5 MG/DL 04/25/2023 3:01 AM CDT [facility] DEPT PATH AND LAB MEDICINE BLOOD / Unknown 04/25/2023 2:11 AM CDT 04/25/2023 2:27 AM CDT Brian S Jaspreet SUPERINTENDENT COMMISSARY-CHIEF DATA OFFICER LABORATORY ORDERABLE S [facility] PATH [facility] MEDICINE [address] [place] [address], * MAGNESIUM CELLULAR THERAPEUTICS (04/25/2023 2:11 AM CDT) Magnesium 2.4 1.6 - 2.6 mg/dL 04/25/2023 3:01 AM CDT [facility] DEPT PATH AND LAB MEDICINE BLOOD / Unknown 04/25/2023 2:11 AM CDT 04/25/2023 2:27 AM CDT Brian Enriquez Jaspreet LOPES-CHIEF DATA OFFICER LABORATORY ORDERABLE S [facility] PATH [facility] LAB MEDICINE [address] [place] [address], * (ABNORMAL) COMPREHENSIVE METABOLIC PANEL (04/25/2023 2:11 AM CDT) Sodium 146 137 - 147 MMOL/L 04/25/2023 3:01 AM CDT [facility] PATH AND LAB MEDICINE Potassium 3.6 3.5 - 5.1 MMOL/L 04/25/2023 3:01 AM CDT [facility] DEPT PATH AND LAB MEDICINE Chloride 111(H) 98 - 110 MMOL/L 04/25/2023 3:01 AM CDT [facility] DEPT PATH AND LAB MEDICINE Glucose 194(H) 70 - 100 MG/DL 04/25/2023 3:01 AM CDT [facility] DEPT PATH AND LAB MEDICINE Blood Urea Nitrogen 37(H) 7 - 25 MG/DL 04/25/2023 3:01 AM CDT [facility] DEPT PATH AND LAB MEDICINE Creatinine 0.81 0.4 - 1.00 MG/DL 04/25/2023 3:01 AM CDT [facility] DE[facility] PATH AND LAB MEDICINE Calcium 8.2(L) 8.5 - 10.6 MG/DL 04/25/2023 3:01 AM CDT [facility] DE[facility] PATH AND LAB MEDICINE Total Protein 5.8(L) 6.0 - 8.0 G/DL 04/25/2023 3:01 AM CDT [facility] DEPT PATH AND LAB MEDICINE Total Bilirubin 0.6 0.3 - 1.2 MG/DL 04/25/2023 3:01 AM CDT [facility] DEPT PATH AND LAB MEDICINE Albumin 3.2(L) 3.5 - 5.0 G/DL 04/25/2023 3:01 AM CDT [facility] DEPT PATH AND LAB MEDICINE Alk Phosphatase 44 25 - 110 U/L 04/25/2023 3:01 AM CDT [facility] DEPT PATH AND LAB MEDICINE AST (SGOT) 29 7 - 40 U/L 04/25/2023 3:01 AM CDT [facility] DEPT PATH AND LAB MEDICINE CO2 26 21 - 30 MMOL/L 04/25/2023 3:01 AM CDT [facility] DEPT PATH AND LAB MEDICINE ALT (SGPT) 38 7 - 56 U/L 04/25/2023 3:01 AM CDT [facility] DEPT PATH AND LAB MEDICINE Anion Gap 9 3 - 12 04/25/2023 3:01 AM CDT [facility] DEPT PATH AND LAB MEDICINE eGFR >60 >60 mL/min 04/25/2023 3:01 AM CDT [facility] DEPT PATH AND LAB MEDICINE Comment:eGFR calculated nicolás ryder the CKD-EPIcr_R equation BLOOD / Unknown 04/25/2023 2:11 AM CDT 04/25/2023 2:27 AM CDT Brian Vogel SUPERINTENDENT COMMISSARY-CHIEF DATA OFFICER LABORATORY ORDERABLE S [facility]IC[facility] [address] [place] [address], * (ABNORMAL) CBC AND DIFF (04/25/2023 2:11 AM CDT) White Blood Cells 22.7(H) 4.5 - 11.0 K/UL 04/25/2023 2:36 AM CDT [facility] DEPT PATH AND LAB MEDICINE RBC 4.06 4.0 - 5.0 M/UL 04/25/2023 2:36 AM CDT [facility] DEPT PATH AND LAB MEDICINE Hemoglobin 11.7(L) 12.0 - 15.0 GM/DL 04/25/2023 2:36 AM CDT [facility] DEPT PATH AND LAB MEDICINE Hematocrit 34.6(L) 36 - 45 % 04/25/2023 2:36 AM CDT [facility] DEPT PATH AND LAB MEDICINE MCV 85.3 80 - 100 FL 04/25/2023 2:36 AM CDT [facility] DEPT PATH AND LAB MEDICINE MCH 28.9 26 - 34 PG 04/25/2023 2:36 AM CDT [facility] DEPT PATH AND LAB MEDICINE MCHC 33.9 32.0 - 36.0 G/DL 04/25/2023 2:36 AM CDT [facility] DEPT PATH AND LAB MEDICINE RDW 14.0 11 - 15 % 04/25/2023 2:36 AM CDT [facility] DEPT PATH AND LAB MEDICINE Platelet Count 215 150 - 400 K/UL 04/25/2023 2:36 AM CDT [facility] DEPT PATH AND LAB MEDICINE MPV 8.7 7 - 11 FL 04/25/2023 2:36 AM CDT [facility] DEPT PATH AND LAB MEDICINE Neutrophils 91(H) 41 - 77 % 04/25/2023 3:36 AM CDT [facility] DEPT PATH AND LAB MEDICINE Lymphocytes 4(L) 24 - 44 % 04/25/2023 3:36 AM CDT [facility] DEPT PATH AND LAB MEDICINE Monocytes 5 4 - 12 % 04/25/2023 3:36 AM CDT [facility] DEPT PATH AND LAB MEDICINE Eosinophils 0 0 - 5 % 04/25/2023 3:36 AM CDT [facility] DEPT PATH AND LAB MEDICINE Basophils 0 0 - 2 % 04/25/2023 3:36 AM CDT [facility] DEPT PATH AND LAB MEDICINE Absolute Neutrophil Count 20.64(H) 1.8 - 7.0 K/UL 04/25/2023 3:36 AM CDT [facility] DEPT PATH AND LAB MEDICINE Absolute Lymph Count 0.92(L) 1.0 - 4.8 K/UL 04/25/2023 3:36 AM CDT [facility] DEPT PATH AND LAB MEDICINE Absolute Monocyte Count 1.10(H) 0 - 0.80 K/UL 04/25/2023 3:36 AM CDT [facility] DEPT PATH AND LAB MEDICINE Absolute Eosinophil Count 0.00 0 - 0.45 K/UL 04/25/2023 3:36 AM CDT [facility] PATH [facility] LAB MEDIC[facility] Absolute Basophil Count 0.06 0 - 0.20 K/UL 04/25/2023 3:36 AM CDT [facility] PATH AND LAB MEDICINE BLOOD / Unknown 04/25/2023 2:11 AM CDT 04/25/2023 2:27 AM CDT Brian Vogel SUPERINTENDENT COMMISSARY-CHIEF DATA OFFICER LABORATORY ORDERABLE S [facility] [address] [place] [address], * FEEDING TUBE PLCMNT (ABD/CHEST LMTD) (04/24/2023 3:13 PM CDT) Anatomical Region Laterality Modality CHEST, Abdomen Computed Radiogr aphy 04/24/2023 5:3 0 PM CDT Impressions 04/24/2023 5:31 PM CDT Findings/impression: Lower thorax and abdomen are included in the [id number]. Bilateral pleural effusions with bibasilar atelectasis. Indwelling [...] thorax and abdomen are included in the [id number]. Bilateralpleural effusions with bibasilar atelectasis. Indwelling nasoentericcatheter with its tip overlying the region of the proximal duodenum. Aright ureteral stent is partially visualized. The visualized bowel loopsare nondistended. Finalized by Fili Florence D.O. on 04/24/2023 5:31 PM. Dictated by Britany Godwin on 04/24/2023 5:30 PM. Gabriela Lombardi SUPERINTENDENT COMMISSARY-CHIEF DATA OFFICER DIAGNOSTIC IMAGING ORDERABLES * (ABNORMAL) BASIC METABOLIC PANEL (04/24/2023 12:25 PM CDT) Sodium 144 137 - 147 MMOL/L 04/24/2023 1:51 PM CDT [facility] Potassium 3.9 3.5 - 5.1 MMOL/L 04/24/2023 1:51 PM CDT [facility] Chloride 110 98 - 110 MMOL/L 04/24/2023 1:51 PM CDT [facility] CO2 24 21 - 30 MMOL/L 04/24/2023 1:51 PM CDT [facility] Anion Gap 10 3 - 12 04/24/2023 1:51 PM CDT [facility] Glucose 146(H) 70 - 100 MG/DL 04/24/2023 1:51 PM CDT [facility] Blood Urea Nitrogen 34(H) 7 - 25 MG/DL 04/24/2023 1:51 PM CDT [facility] Creatinine 0.90 0.4 - 1.00 MG/DL 04/24/2023 1:51 PM CDT [facility] Calcium 8.2(L) 8.5 - 10.6 MG/DL 04/24/2023 1:51 PM CDT [facility] eGFR >60 >60 mL/min 04/24/2023 1:51 PM CDT [facility] Comment:eGFR calculated nicolás ryder the CKD-EPIcr_R equation BLOOD / Unknown 04/24/2023 1 2:25 PM CDT 04/24/2023 12:38 PM CDT Gabriela Perez Se Lombardi SUPERINTENDENT COMMISSARY-CHIEF DATA OFFICER LABORATORY ORDERABLES [facility] [address] [place] [address], [place] * ECG 12-LEAD (04/24/2023 12:24 PM CDT) [...] ([id number]) on 04/24/2023 2:06:17 PM Brian Vogel SUPERINTENDENT COMMISSARY-CHIEF DATA OFFICER ECG ORDERABLES Performing Organization Address City/[facility]/ZIP Co de Phone Number GE MUSE * 2D + DOPPLER ECHO W/ CONTRAST [...] cm OTHER OUTSIDE LAB MV Peak E Hannah PW 1.28 m/s OTHER OUTSIDE LAB Right [...] 25.60 OTHER OUTSIDE LAB CV ECHO PV SEQUENCING MACHINE OPERATOR Lindsey IGNACIO OTHER OUTSIDE LAB Cardiology Ultrasound Machine Harpal Epiq OTHER OUTSIDE LAB LEIGH'S BIPLANE EF 20 % OTHER OUTSIDE LAB LVOT peak hannah 0.6 m/s OTHER OUTSIDE LAB AV Stroke Volume Index 17 OTHER OUTSIDE LAB AV peak velocity 2.2 m/s OTHER OUTSIDE LAB and a peak gradient of 18 mmHg OTHER OUTSIDE LAB AV index (augustine) 0.27 OTHER OUTSIDE LAB TR PEAK VELOCITY [...] mid inferior and apical inferior. Brian Franco SUPERINTENDENT COMMISSARY-CHIEF DATA OFFICER ECHO ORDERABLES * ECG 12-LEAD (04/24/2023 8:12 [...] Loja ([id number]) on 04/24/2023 11:04:39 AM Brian S Jaspreet SUPERINTENDENT COMMISSARY-CHIEF DATA OFFICER ECG ORDERABLES GE MUSE * ECG 12-LEAD [...] Rivers ([id number]) on 04/24/2023 8:31:07 AM Brian S Jaspreet SUPERINTENDENT COMMISSARY-CHIEF DATA OFFICER ECG ORDERABLES GE MUSE * (ABNORMAL) HIGH SENSITIVITY TROPONIN I, RANDOM (04/24/2023 3:37 AM CDT) hs Troponin I, Random 704(H) <12 ng/L 04/24/2023 9:06 AM CDT [facility] 04/24/2023 3:3 7 AM CDT 04/24/2023 4:02 AM CDT Brian Vogel SUPERINTENDENT COMMISSARY-CHIEF DATA OFFICER LABORATORY ORDERABLE [facility] PATH AND LAB MEDIC[facility] [address] [place] [address], * PHOSPHORUS CELLULAR THERAPEUTICS (04/24/2023 3:37 AM CDT) Phosphorus 2.1 2.0 - 4.5 MG/DL 04/24/2023 4:38 AM CDT [facility] PATH [facility] LAB MED[facility] BLOOD / Unknown 04/24/2023 3:37 AM CDT 04/24/2023 4:02 AM CDT Brian Vogel SUPERINTENDENT COMMISSARY-CHIEF DATA OFFICER LABORATORY ORDERABLE S [facility] PATH [facility]IC[facility] [address] [place] [address], * MAGNESIUM CELLULAR THERAPEUTICS (04/24/2023 3:37 AM CDT) Magnesium 2.5 1.6 - 2.6 mg/dL 04/24/2023 4:38 AM CDT [facility] PATH [facility] LAB MEDIC[facility] BLOOD / Unknown 04/24/2023 3:37 AM CDT 04/24/2023 4:02 AM CDT Brian Vogel SUPERINTENDENT COMMISSARY-CHIEF DATA OFFICER LABORATORY ORDERABLE S [facility] PATH [facility] [address] [place] [address], * (ABNORMAL) COMPREHENSIVE METABOLIC PANEL (04/24/2023 3:37 AM CDT) [facility] Sodium 144 137 - 147 MMOL/L 04/24/2023 4:38 AM CDT [facility] DEPT PATH AND LAB MEDICINE Potassium 3.9 3.5 - 5.1 MMOL/L 04/24/2023 4:38 AM CDT [facility] DEPT PATH AND LAB MEDICINE Chloride 111(H) 98 - 110 MMOL/L 04/24/2023 4:38 AM CDT [facility] DEPT PATH AND LAB MEDICINE Glucose 132(H) 70 - 100 MG/DL 04/24/2023 4:38 AM CDT [facility] DEPT PATH AND LAB MEDICINE Blood Urea Nitrogen 31(H) 7 - 25 MG/DL 04/24/2023 4:38 AM CDT [facility] DEPT PATH AND LAB MEDICINE Creatinine 0.72 0.4 - 1.00 MG/DL 04/24/2023 4:38 AM CDT [facility] DEPT PATH AND LAB MEDICINE Calcium 8.4(L) 8.5 - 10.6 MG/DL 04/24/2023 4:38 AM CDT [facility] DEPT PATH AND LAB MEDICINE Total Protein 6.0 6.0 - 8.0 G/DL 04/24/2023 4:38 AM CDT [facility] DEPT PATH AND LAB MEDICINE Total Bilirubin 0.7 0.3 - 1.2 MG/DL 04/24/2023 4:38 AM CDT [facility] DEPT PATH AND LAB MEDICINE Albumin 3.4(L) 3.5 - 5.0 G/DL 04/24/2023 4:38 AM CDT [facility] DEPT PATH AND LAB MEDICINE Alk Phosphatase 55 25 - 110 U/L 04/24/2023 4:38 AM CDT [facility] DEPT PATH AND LAB MEDICINE AST (SGOT) 31 7 - 40 U/L 04/24/2023 4:38 AM CDT [facility] DEPT PATH AND LAB MEDICINE CO2 24 21 - 30 MMOL/L 04/24/2023 4:38 AM CDT [facility] DEPT PATH AND LAB MEDICINE ALT (SGPT) 35 7 - 56 U/L 04/24/2023 4:38 AM CDT [facility] DEPT PATH AND LAB MEDICINE Anion Gap 9 3 - 12 04/24/2023 4:38 AM CDT [facility] DEPT PATH AND LAB MEDICINE eGFR >60 >60 mL/min 04/24/2023 4:38 AM CDT [facility] DE[facility] PATH AND LAB MEDICINE Comment:eGFR calculated nicolás ryder the CKD-EPIcr_R equation BLOOD / Unknown 04/24/2023 3:37 AM CDT 04/24/2023 4:02 AM CDT Brian Vogel SUPERINTENDENT COMMISSARY-CHIEF DATA OFFICER LABORATORY ORDERABLE S [facility] DEPT PATH AND LAB MEDICINE [address] [place] [address], * (ABNORMAL) CBC AND DIFF (04/24/2023 3:37 AM CDT) White Blood Cells 35.6(H) 4.5 - 11.0 K/UL 04/24/2023 4:12 AM CDT [facility] DEPT PATH AND LAB MEDICINE RBC 3.94(L) 4.0 - 5.0 M/UL 04/24/2023 4:12 AM CDT [facility] DEPT PATH AND LAB MEDICINE Hemoglobin 11.2(L) 12.0 - 15.0 GM/DL 04/24/2023 4:12 AM CDT [facility] DEPT PATH AND LAB MEDICINE Hematocrit 33.9(L) 36 - 45 % 04/24/2023 4:12 AM CDT [facility] DEPT PATH AND LAB MEDICINE MCV 86.0 80 - 100 FL 04/24/2023 4:12 AM CDT [facility] DEPT PATH AND LAB MEDICINE MCH 28.5 26 - 34 PG 04/24/2023 4:12 AM CDT [facility] DEPT PATH AND LAB MEDICINE MCHC 33.1 32.0 - 36.0 G/DL 04/24/2023 4:12 AM CDT [facility] DEPT PATH AND LAB MEDICINE RDW 14.3 11 - 15 % 04/24/2023 4:12 AM CDT [facility] DEPT PATH AND LAB MEDICINE Platelet Count 184 150 - 400 K/UL 04/24/2023 4:12 AM CDT [facility] DEPT PATH AND LAB MEDICINE MPV 8.5 7 - 11 FL 04/24/2023 4:12 AM CDT [facility] DEPT PATH AND LAB MEDICINE Neutrophils 95(H) 41 - 77 % 04/24/2023 6:44 AM CDT [facility] DEPT PATH AND LAB MEDICINE Lymphocytes 2(L) 24 - 44 % 04/24/2023 6:44 AM CDT [facility] DEPT PATH AND LAB MEDICINE Monocytes 3(L) 4 - 12 % 04/24/2023 6:44 AM CDT [facility] DEPT PATH AND LAB MEDICINE Eosinophils 0 0 - 5 % 04/24/2023 6:44 AM CDT [facility] DEPT PATH AND LAB MEDICINE Basophils 0 0 - 2 % 04/24/2023 6:44 AM CDT [facility] DEPT PATH AND LAB MEDICINE Absolute Neutrophil Count 33.90(H) 1.8 - 7.0 K/UL 04/24/2023 6:44 AM CDT [facility] DEPT PATH AND LAB MEDICINE Absolute Lymph Count 0.67(L) 1.0 - 4.8 K/UL 04/24/2023 6:44 AM CDT [facility] DEPT PATH AND LAB MEDICINE Absolute Monocyte Count 0.95(H) 0 - 0.80 K/UL 04/24/2023 6:44 AM CDT [facility] DEPT PATH AND LAB MEDICINE Absolute Eosinophil Count 0.00 0 - 0.45 K/UL 04/24/2023 6:44 AM CDT [facility] DEPT PATH AND LAB MEDICINE Absolute Basophil Count 0.04 0 - 0.20 K/UL 04/24/2023 6:44 AM CDT [facility] DEPT PATH AND LAB MEDICINE BLOOD / Unknown 04/24/2023 3:37 AM CDT 04/24/2023 4:02 AM CDT Brian Vogel SUPERINTENDENT COMMISSARY-CHIEF DATA OFFICER LABORATORY ORDERABLE S [facility] DEPT PATH AND LAB MEDICINE [address] [place] [address], * URIC ACID (04/24/2023 3:37 AM CDT) Uric Acid 4.6 2.0 - 7.0 MG/DL 04/24/2023 4:38 AM CDT [facility] DEPT PATH AND LAB MEDICINE BLOOD / Unknown 04/24/2023 3:37 AM CDT 04/24/2023 4:02 AM CDT Gabriela Lombardi APRN-CHIEF DATA OFFICER LABORATORY ORDERABLES [facility] PATH [facility] LAB MEDICINE [address] [place] [address], * CULTURE-BLOOD W/SENSITIVITY (04/23/2023 3:57 PM CDT) Battery Name BLOOD CULTURE [facility] DEPT PATH AND LAB MEDICINE Report Status FINAL 04/29/2023 [facility] DEPT PATH AND LAB MEDICINE Specimen Description BLOOD ARM, RIGHT [facility] DEPT PATH AND LAB MEDICINE Special Requests No special requests 04/22/2023 6:16 PM CDT [facility] DEPT PATH AND LAB MEDICINE Culture NO GROWTH 5 DAYS 04/29/2023 6:15 AM CDT [facility] DEPT PATH AND LAB MEDICINE Blood RIGHT UPPER ARM STRUCTURE / Unknown 04/23/2023 3:57 PM CDT 04/23/2023 4:20 PM CDT Brian Vogel APRN-CHIEF DATA OFFICER MICROBIOLOGY ORDERAB LES Performing Organization Address [facility]/ZIP Co de Phone Number [facility] [address] [place] [address], * (ABNORMAL) HIGH SENSITIVITY TROPONIN I, RANDOM (04/23/2023 2:37 PM CDT) Pathologist [facility] hs Troponin I, Random 931(H) <12 ng/L 04/23/2023 3:41 PM CDT [facility] DEPT PATH AND LAB MEDICINE BLOOD / Unknown 04/23/2023 2:37 PM CDT 04/23/2023 2:41 PM CDT Brian RIDDLECHIEF DATA OFFICER LABORATORY ORDERABLE S [facility] [address] [place] [address], [place] * (ABNORMAL) HIGH SENSITIVITY TROPONIN I, RANDOM (04/23/2023 10:29 AM CDT) hs Troponin I, Random 1,380(H) <12 ng/L 04/23/2023 11:40 AM CDT [facility] DEPT PATH AND LAB MEDICINE BLOOD / Unknown 04/23/2023 1 0:29 AM CDT 04/23/2023 10:38 AM CDT Brian S Jaspreet SUPERINTENDENT COMMISSARY-CHIEF DATA OFFICER LABORATORY ORDERABLE S [facility] PATH AND LAB MEDICINE [address] [place] [address], [place] * CHEST SINGLE VIEW (04/23/2023 6:40 AM CDT) Anatomical Region Laterality Modality CHEST Computed [...] Loza M.D. on 04/23/2023 11:06 AM. Brian ALEJANDRO DIAGNOSTIC IMAGING O RDERABLES * (ABNORMAL) BLOOD GASES, ARTERIAL (04/23/2023 6:18 AM CDT) pH-Arterial 7.28(L) 7.35 - 7.45 04/23/2023 6:26 AM CDT [facility] DEPT PATH AND LAB MEDICINE pCO2-Arterial 43 35 - 45 MMHG 04/23/2023 6:26 AM CDT [facility] DEPT PATH AND LAB MEDICINE pO2-Arterial 183(H) 80 - 100 MMHG 04/23/2023 6:26 AM CDT [facility] DEPT PATH AND LAB MEDICINE Base Deficit-Arteri al 6.6 MMOL/L 04/23/2023 6:26 AM CDT [facility] DEPT PATH AND LAB MEDICINE O2 Sat-Arterial 99.0 95 - 99 % 04/23/2023 6:26 AM CDT [facility] DEPT PATH AND LAB MEDICINE Bicarbonate-AR T-Shahab 19.1(L) 21 - 28 MMOL/L 04/23/2023 6:26 AM CDT [facility] DEPT PATH AND LAB MEDICINE BLOOD / Unknown 04/23/2023 6:18 AM CDT 04/23/2023 6:24 AM CDT Brian ALEJANDRO OTHER LABORATORY [facility] DEPT PATH AND LAB MEDICINE [address] [place] [address], [place] * (ABNORMAL) HIGH SENSITIVITY TROPONIN I, RANDOM (04/23/2023 6:18 AM CDT) Pathologist [facility] hs Troponin I, Random 1,412(H) <12 ng/L 04/23/2023 7:07 AM CDT [facility] BLOOD / Unknown 04/23/2023 6:18 AM CDT 04/23/2023 6:29 AM CDT Brian Vogel SUPERINTENDENT COMMISSARY-CHIEF DATA OFFICER LABORATORY ORDERABLE S [facility] PATH [facility] LAB MEDICINE [address] [place] [address], * MRSA PNEUMONIA SCREEN (04/23/2023 6:10 AM CDT) Pathologist [facility] MRSA Pneumonia PCR NOT DETECTED The negative predictive value of this assay for MRSA pneumonia is high. Discontinuation of anti-MRSA pneumonia therapy is recommended in patients without additional clinical features that warrant MRSA therapy. Contact infectious Diseases or Antimicrobial Stewardship with questions. 04/23/2023 9:00 AM CDT [facility] DEPT PATH AND LAB MEDICINE Flocked Swab SWAB OF INTERNAL NOSE / Unknown 04/23/2023 6:10 AM CDT 04/23/2023 7:10 AM CDT Kate De La Cruz MD MICROBIOLOGY ORDERAB LES Performing Organization Address City/[facility]/ZIP Co de Phone Number [facility] PATH [facility] LAB MEDICINE [address] [place] [address], * CULTURE-URINE W/SENSITIVITY (04/23/2023 5:12 AM CDT) Pathologist [facility] Battery Name URINE CULTURE [facility] DEPT PATH AND LAB MEDICINE Report Status FINAL 04/24/2023 [facility] Specimen Description URINE CATHETER [facility] PATH [facility] LAB MEDIC[facility] Special Requests No special requests 04/23/2023 5:13 AM CDT [facility] DEPT PATH AND LAB MEDICINE Culture NO GROWTH 04/24/2023 7:34 AM CDT [facility] Urine URINARY BLADDER STRUCTURE / Unknown 04/23/2023 5:12 AM CDT Comment:Routine Culture Jerald Lindquist MD MICROBIOLOGY MERCEDES SULLIVAN Performing Organization Address City/[facility]/ZIP Co de Phone Number [facility] PATH AND LAB MEDICINE [address] [place] [address], * (ABNORMAL) BLOOD GASES, ARTERIAL (04/23/2023 4:06 AM CDT) pH-Arterial 7.31(L) 7.35 - 7.45 04/23/2023 4:18 AM CDT [facility] DEPT PATH AND LAB MEDICINE pCO2-Arterial 42 35 - 45 MMHG 04/23/2023 4:18 AM CDT [facility] DEPT PATH AND LAB MEDICINE pO2-Arterial 87 80 - 100 MMHG 04/23/2023 4:18 AM CDT [facility] DEPT PATH AND LAB MEDICINE Base Deficit-Arteri al 5.1 MMOL/L 04/23/2023 4:18 AM CDT [facility] DEPT PATH AND LAB MEDICINE O2 Sat-Arterial 96.8 95 - 99 % 04/23/2023 4:18 AM CDT [facility] DEPT PATH AND LAB MEDICINE Bicarbonate-AR T-Shahab 20.2(L) 21 - 28 MMOL/L 04/23/2023 4:18 AM CDT [facility] DEPT PATH AND LAB MEDICINE BLOOD / Unknown 04/23/2023 4:06 AM CDT 04/23/2023 4:13 AM CDT Brian ALEJANDRO OTHER LABORATORY Performing Organization Address City/[facility]/ZIP Co de Phone Number [facility] DEPT PATH AND LAB MEDICINE [address] [place] [address], * PHOSPHORUS CELLULAR THERAPEUTICS (04/23/2023 3:46 AM CDT) Phosphorus 2.3 2.0 - 4.5 MG/DL 04/23/2023 4:38 AM CDT [facility] DEPT PATH AND LAB MEDICINE BLOOD / Unknown 04/23/2023 3:46 AM CDT 04/23/2023 4:04 AM CDT Brian Vogel SUPERINTENDENT COMMISSARY-CHIEF DATA OFFICER LABORATORY ORDERABLE S [facility] PATH AND LAB MEDICINE [address] [place] [address], * MAGNESIUM CELLULAR THERAPEUTICS (04/23/2023 3:46 AM CDT) Magnesium 2.5 1.6 - 2.6 mg/dL 04/23/2023 4:38 AM CDT [facility] DEPT PATH AND LAB MEDICINE BLOOD / Unknown 04/23/2023 3:46 AM CDT 04/23/2023 4:04 AM CDT Brian Vogel SUPERINTENDENT COMMISSARY-CHIEF DATA OFFICER LABORATORY ORDERABLE S [facility] PATH AND LAB MEDICINE [address] [place] [address], * (ABNORMAL) COMPREHENSIVE METABOLIC PANEL (04/23/2023 3:46 AM CDT) Sodium 144 137 - 147 MMOL/L 04/23/2023 4:38 AM CDT [facility] DEPT PATH AND LAB MEDICINE Potassium 4.1 3.5 - 5.1 MMOL/L 04/23/2023 4:38 AM CDT [facility] DEPT PATH AND LAB MEDICINE Chloride 112(H) 98 - 110 MMOL/L 04/23/2023 4:38 AM CDT [facility] DEPT PATH AND LAB MEDICINE Glucose 150(H) 70 - 100 MG/DL 04/23/2023 4:38 AM CDT [facility] DEPT PATH AND LAB MEDICINE Blood Urea Nitrogen 24 7 - 25 MG/DL 04/23/2023 4:38 AM CDT [facility] DEPT PATH AND LAB MEDICINE Creatinine 0.79 0.4 - 1.00 MG/DL 04/23/2023 4:38 AM CDT [facility] DEPT PATH AND LAB MEDICINE Calcium 8.0(L) 8.5 - 10.6 MG/DL 04/23/2023 4:38 AM CDT [facility] DEPT PATH AND LAB MEDICINE Total Protein 5.7(L) 6.0 - 8.0 G/DL 04/23/2023 4:38 AM CDT [facility] DEPT PATH AND LAB MEDICINE Total Bilirubin 0.7 0.3 - 1.2 MG/DL 04/23/2023 4:38 AM CDT [facility] DEPT PATH AND LAB MEDICINE Albumin 3.2(L) 3.5 - 5.0 G/DL 04/23/2023 4:38 AM CDT [facility] DEPT PATH AND LAB MEDICINE Alk Phosphatase 57 25 - 110 U/L 04/23/2023 4:38 AM CDT [facility] DEPT PATH AND LAB MEDICINE AST (SGOT) 39 7 - 40 U/L 04/23/2023 4:38 AM CDT [facility] DEPT PATH AND LAB MEDICINE CO2 20(L) 21 - 30 MMOL/L 04/23/2023 4:38 AM CDT [facility] DEPT PATH AND LAB MEDICINE ALT (SGPT) 34 7 - 56 U/L 04/23/2023 4:38 AM CDT [facility] DEPT PATH AND LAB MEDICINE Anion Gap 12 3 - 12 04/23/2023 4:38 AM CDT [facility] DEPT PATH AND LAB MEDICINE eGFR >60 >60 mL/min 04/23/2023 4:38 AM CDT [facility] DEPT PATH AND LAB MEDICINE Comment:eGFR calculated nicolás ryder the CKD-EPIcr_R equation BLOOD / Unknown 04/23/2023 3:46 AM CDT 04/23/2023 4:04 AM CDT Brian Vogel SUPERINTENDENT COMMISSARY-CHIEF DATA OFFICER LABORATORY ORDERABLE S [facility] PATH [facility] LAB MEDICINE [address] [place] [address], [place] * (ABNORMAL) CBC AND DIFF (04/23/2023 3:46 AM CDT) White Blood Cells 33.3(H) 4.5 - 11.0 K/UL 04/23/2023 4:14 AM CDT [facility] DEPT PATH AND LAB MEDICINE RBC 3.74(L) 4.0 - 5.0 M/UL 04/23/2023 4:14 AM CDT [facility] DEPT PATH AND LAB MEDICINE Hemoglobin 10.7(L) 12.0 - 15.0 GM/DL 04/23/2023 4:14 AM CDT [facility] DEPT PATH AND LAB MEDICINE Hematocrit 32.1(L) 36 - 45 % 04/23/2023 4:14 AM CDT [facility] DEPT PATH AND LAB MEDICINE MCV 85.8 80 - 100 FL 04/23/2023 4:14 AM CDT [facility] DEPT PATH AND LAB MEDICINE MCH 28.6 26 - 34 PG 04/23/2023 4:14 AM CDT [facility] DEPT PATH AND LAB MEDICINE MCHC 33.3 32.0 - 36.0 G/DL 04/23/2023 4:14 AM CDT [facility] DEPT PATH AND LAB MEDICINE RDW 14.3 11 - 15 % 04/23/2023 4:14 AM CDT [facility] DEPT PATH AND LAB MEDICINE Platelet Count 163 150 - 400 K/UL 04/23/2023 4:14 AM CDT [facility] DEPT PATH AND LAB MEDICINE MPV 8.7 7 - 11 FL 04/23/2023 4:14 AM CDT [facility] DEPT PATH AND LAB MEDICINE Neutrophils 94(H) 41 - 77 % 04/23/2023 6:56 AM CDT [facility] DEPT PATH AND LAB MEDICINE Lymphocytes 2(L) 24 - 44 % 04/23/2023 6:56 AM CDT [facility] DEPT PATH AND LAB MEDICINE Monocytes 3(L) 4 - 12 % 04/23/2023 6:56 AM CDT [facility] DEPT PATH AND LAB MEDICINE Eosinophils 1 0 - 5 % 04/23/2023 6:56 AM CDT [facility] DEPT PATH AND LAB MEDICINE Basophils 0 0 - 2 % 04/23/2023 6:56 AM CDT [facility] DEPT PATH AND LAB MEDICINE Absolute Neutrophil Count 31.42(H) 1.8 - 7.0 K/UL 04/23/2023 6:56 AM CDT [facility] DEPT PATH AND LAB MEDICINE Absolute Lymph Count 0.57(L) 1.0 - 4.8 K/UL 04/23/2023 6:56 AM CDT [facility] DEPT PATH AND LAB MEDICINE Absolute Monocyte Count 0.92(H) 0 - 0.80 K/UL 04/23/2023 6:56 AM CDT [facility] DEPT PATH AND LAB MEDICINE Absolute Eosinophil Count 0.35 0 - 0.45 K/UL 04/23/2023 6:56 AM CDT [facility] DEPT PATH AND LAB MEDICINE Absolute Basophil Count 0.06 0 - 0.20 K/UL 04/23/2023 6:56 AM CDT [facility] DEPT PATH AND LAB MEDICINE BLOOD / Unknown 04/23/2023 3:46 AM CDT 04/23/2023 4:04 AM CDT Brian Vogel SUPERINTENDENT COMMISSARY-CHIEF DATA OFFICER LABORATORY ORDERABLE S Performing Organization Address City/[facility]/ZIP Co de Phone Number [facility] PATH [facility] LAB MEDICINE [address] [place] [address], * LACTIC ACID (BG - RAPID LACTATE) (04/23/2023 3:46 AM CDT) Lactic Acid,BG 1.7 0.5 - 2.0 MMOL/L 04/23/2023 4:12 AM CDT [facility] DEPT PATH AND LAB MEDICINE BLOOD / Unknown 04/23/2023 3:46 AM CDT 04/23/2023 4:02 AM CDT Brian Franco SUPERINTENDENT COMMISSARY-CHIEF DATA OFFICER OTHER LABORATORY [facility] PATH [facility] LAB MEDICINE [address] [place] [address], * GRAM STAIN (04/23/2023 2:17 AM CDT) Battery Name GRAM STAIN [facility] DEPT PATH AND LAB MEDICINE Report Status FINAL 04/23/2023 [facility] DEPT PATH AND LAB MEDICINE Specimen Description SPUTUM TRACHEA [facility] DEPT PATH AND LAB MEDICINE Special Requests No special requests 04/23/2023 4:58 AM CDT [facility] DEPT PATH AND LAB MEDICINE Gram Stain LESS THAN 10/LPF NEUTROPHILS 04/23/2023 5:33 AM CDT [facility] DEPT PATH AND LAB MEDICINE Gram Stain LESS THAN 10/LPF SQUAMOUS EPITHELIAL CELLS 04/23/2023 5:33 AM CDT [facility] DEPT PATH AND LAB MEDICINE Gram Stain NO ORGANISMS SEEN 04/23/2023 5:33 AM CDT [facility] DEPT PATH AND LAB MEDICINE Sputum SPECIMEN FROM TRACHEA / Unknown 04/23/2023 2:17 AM CDT 04/23/2023 4:57 AM CDT Brian Vogel SUPERINTENDENT COMMISSARY-CHIEF DATA OFFICER MICROBIOLOGY ORDERAB LES Performing Organization Address City/[facility]/ZIP Co de Phone Number [facility] DEPT PATH AND LAB MEDICINE [address] [place] [address], [place] * CULTURE-RESP,LOWER W/SENSITIVITY (04/23/2023 2:17 AM CDT) Battery Name LOWER RESP CULTURE [facility] DEPT PATH AND LAB MEDICINE Report Status FINAL 04/25/2023 [facility] DEPT PATH AND LAB MEDICINE Specimen Description SPUTUM TRACHEA [facility] DEPT PATH AND LAB MEDICINE Special Requests No special requests 04/23/2023 4:58 AM CDT [facility] DEPT PATH AND LAB MEDICINE Direct Gram Stain LESS THAN 10/LPF NEUTROPHILS 04/23/2023 5:33 AM CDT [facility] DEPT PATH AND LAB MEDICINE Direct Gram Stain LESS THAN 10/LPF SQUAMOUS EPITHELIAL CELLS 04/23/2023 5:33 AM CDT [facility] DEPT PATH AND LAB MEDICINE Direct Gram Stain NO ORGANISMS SEEN 04/23/2023 5:33 AM CDT [facility] DEPT PATH AND LAB MEDICINE Culture Light growth NORMAL OROPHARYNGEAL JANES 04/25/2023 8:36 AM CDT [facility] DEPT PATH AND LAB MEDICINE Sputum SPECIMEN FROM TRACHEA / Unknown 04/23/2023 2:17 AM CDT 04/23/2023 4:57 AM CDT Brian Vogel SUPERINTENDENT COMMISSARY-CHIEF DATA OFFICER MICROBIOLOGY ORDERAB LES Performing Organization Address City/[facility]/ZIP Co de Phone Number [facility] DEPT PATH AND LAB MEDICINE [address] [place] [address], [place] * (ABNORMAL) HIGH SENSITIVITY TROPONIN I, RANDOM (04/23/2023 1:11 AM CDT) hs Troponin I, Random 2,610(H) <12 ng/L 04/23/2023 1:57 AM CDT [facility] PATH AND LAB MEDICINE BLOOD / Unknown 04/23/2023 1:11 AM CDT 04/23/2023 1:17 AM CDT Brian Vogel APRN-CHIEF DATA OFFICER LABORATORY ORDERABLE S [facility] PATH AND LAB MEDICINE [address] [place] [address], [place] * (ABNORMAL) LACTIC ACID (BG - RAPID LACTATE) (04/23/2023 1:06 AM CDT) Lactic Acid,BG 2.6(H) 0.5 - 2.0 MMOL/L 04/23/2023 1:28 AM CDT [facility] PATH AND LAB MEDICINE BLOOD / Unknown 04/23/2023 1:06 AM CDT 04/23/2023 1:24 AM CDT Brian ALEJANDRO OTHER LABORATORY Performing Organization Address City/[facility]/ZIP Co de Phone Number [facility] PATH AND LAB MEDICINE [address] [place] [address], [place] * LACTIC ACID (BG - RAPID LACTATE) (04/22/2023 9:47 PM CDT) Lactic Acid,BG 1.9 0.5 - 2.0 MMOL/L 04/22/2023 10:21 PM CDT [facility] PATH AND LAB MEDICINE BLOOD / Unknown 04/22/2023 9:47 PM CDT 04/22/2023 10:12 PM CDT Brian ALEJANDRO OTHER LABORATORY Performing Organization Address City/[facility]/ZIP Co de Phone Number [facility] PATH AND LAB MEDICINE [address] [place] [address], [place] * (ABNORMAL) NT-PRO-BNP (04/22/2023 8:03 PM CDT) Pathologist [facility] NT-Pro-BNP 11,158.0(H ) <450 pg/mL 04/22/2023 9:25 PM CDT [facility] PATH [facility] LAB MEDIC[facility] Comment: NOTE: Normal reference ranges for NT-proBNP vary by age: <125 pg/mL for individuals < 75 years old <450 pg/mL for individuals =/> 75 years old BLOOD / Unknown 04/22/2023 8:03 PM CDT 04/22/2023 8:52 PM CDT Brian Vogel APRN-WENDY LABORATORY ORDERABLE S Performing Organization Address City/[facility] Co de Phone Number [facility] [address] [place] [address], * CULTURE-BLOOD W/SENSITIVITY (04/22/2023 8:03 PM CDT) Pathologist [facility] Battery Name BLOOD CULTURE [facility] DEPT PATH AND LAB MEDICINE Report Status FINAL 04/28/2023 [facility] PATH AND LAB MEDICINE Specimen Description BLOOD BLOOD LINE DRAW PICC LINE [facility] Special Requests No special requests 04/22/2023 7:33 PM CDT [facility] Culture NO GROWTH 5 DAYS 04/28/2023 5:39 AM CDT [facility] Blood BLOOD SAMPLE TAKEN FROM CENTRAL LINE / Unknown 04/22/2023 8:03 PM CDT 04/22/2023 9:29 PM CDT Comment:PICC LINE Brian Vogel APRN-CHIEF DATA OFFICER MICROBIOLOGY ORDERAB LES Performing Organization Address City/[facility]/ZIP Co de Phone Number [facility] [address] [place] [address], * PROCALCITONIN (04/22/2023 8:03 PM CDT) Pathologist [facility] Procalcitonin 30.80 ng/mL 04/22/2023 9:33 PM CDT [facility] Comment: Suspected Lower Respiratory Tract Infection: >0.25 ng/mL-Increased likeihood bacterial infection Suspected Sepsis: >0.5 ng/mL-Increased likelihood sepsis >2.0 ng/mL-High risk of sepsis/septic shock BLOOD / Unknown 04/22/2023 8:03 PM CDT 04/22/2023 8:53 PM CDT Kate De La Cruz MD LABORATORY ORDERABLE S [facility] [address] [place] [address], [place] * CHEST SINGLE VIEW (04/22/2023 7:58 PM CDT) Anatomical Region Laterality Modality CHEST Computed Radiogr aphy 04/23/2023 7:0 1 AM CDT Impressions 04/23/2023 7:04 AM CDT Mild cardiomegaly with interstitial prominence and patchy basilar predominant pulmonary opacities, which may reflect edema and/or pneumonia. Moderate right and small left pleural effusions. Finalized by Skye Loza M.D. on 04/23/2023 7:04 AM. Dictated by Skye Loza M.D. on 04/23/2023 7:01 AM. Narrative 04/23/2023 7:04 AM CDT CHEST SINGLE VIEW INDICATION: Tachypnea, hypoxia. COMPARISON STUDY: None. FINDINGS: Support Devices: Left PICC with tip overlying lower SVC. Lungs/Pleura: Indistinct pulmonary vasculature. Patchy basilar predominant pulmonary opacities. Moderate right and small left pleural effusions. No pneumothorax identified. Heart and Mediastinum: The cardiomediastinal silhouette is mildly enlarged. Procedure Note Skye Loza MD - 04/23/2023 CHEST SINGLE VIEW INDICATION: Tachypnea, hypoxia. COMPARISON STUDY: None. FINDINGS: Support Devices: Left PICC with tip overlying lower SVC. Lungs/Pleura: Indistinct pulmonary vasculature. Patchy basilar predominantpulmonary opacities. Moderate right and small left pleural effusions. Nopneumothorax identified. Heart and Mediastinum: The cardiomediastinal silhouette is mildlyenlarged. IMPRESSION Mild cardiomegaly with interstitial prominence and patchy basilarpredominant pulmonary opacities, which may reflect edema and/orpneumonia. Moderate right and small left pleural effusions. Finalized by Skye Loza M.D. on 04/23/2023 7:04 AM. Dictated bySkye Loza M.D. on 04/23/2023 7:01 AM. Brian ALEJANDRO DIAGNOSTIC IMAGING O RDERABLES * INFLUENZA A/B AND RSV PCR (04/22/2023 6:59 PM CDT) Influenza A Virus NEG NEG-NEG 04/22/2023 8:35 PM CDT [facility] DEPT PATH AND LAB MEDICINE Influenza B Virus NEG NEG-NEG 04/22/2023 8:35 PM CDT [facility] DEPT PATH AND LAB MEDICINE RSV NEG NEG-NEG 04/22/2023 8:35 PM CDT [facility] Flocked Swab NASOPHARYNGEAL STRUCTURE / Unknown 04/22/2023 6:59 PM CDT 04/22/2023 7:39 PM CDT Brian ALEJANDRO MICROBIOLOGY ORDERAB LES [facility] PATH [facility] LAB MEDICINE [address] [place] [address], * COVID-19 (SARS-COV-2) PCR (04/22/2023 6:59 PM CDT) COVID-19 (SARS-CoV-2) PCR Source FLOCKED SWAB NASOPHARYNG EAL 04/22/2023 6:59 PM CDT [facility] DEPT PATH AND LAB MEDICINE COVID-19 (SARS-CoV-2) PCR NOT DETECTED DN-NOT DETECTED 04/22/2023 8:35 PM CDT [facility] DEPT PATH AND LAB MEDICINE Comment: This assay [...] performance characteristics have been verified by the [facility] clinical laboratory. Fact sheet for providers: https://www.fda.gov/media/453927/download Fact sheet for patients: https://www.fda.gov/media/801946/download Flocked Swab NASOPHARYNGEAL STRUCTURE / Unknown 04/22/2023 6:59 PM CDT 04/22/2023 7:39 PM CDT Brian Mina Vogel SUPERINTENDENT COMMISSARY-CHIEF DATA OFFICER MICROBIOLOGY ORDERAB LES [facility] DEPT PATH AND LAB MEDICINE [address] [place] [address], * ECG 12-LEAD (04/22/2023 6:54 PM CDT) [...] Rivers (167) on 04/22/2023 9:27:42 PM Brian Mina Vogel SUPERINTENDENT COMMISSARY-CHIEF DATA OFFICER ECG ORDERABLES GE MUSE * CULTURE-URINE W/SENSITIVITY (04/22/2023 6:48 PM CDT) Battery Name URINE CULTURE [facility] PATH AND LAB MEDICINE Report Status FINAL 04/24/2023 [facility] PATH AND LAB MEDICINE Specimen Description URINE CATHETER, IN AND OUT [facility] PATH AND LAB MEDICINE Special Requests No special requests 04/22/2023 9:06 PM CDT [facility] PATH AND LAB MEDICINE Comment:Reflexed from [id number] Culture NO GROWTH 04/24/2023 8:09 AM CDT [facility] PATH AND LAB MEDICINE Urine (Catheter, In and Out) 04/22/2023 6:48 PM CDT 04/22/2023 7:40 PM CDT Brian Vogel SUPERINTENDENT COMMISSARY-CHIEF DATA OFFICER MICROBIOLOGY ORDERAB LES Performing Organization Address City/[facility]/ZIP Co de Phone Number [facility] PATH AND LAB MEDICINE [address] [place] [address], [place] * (ABNORMAL) URINALYSIS MICROSCOPIC REFLEX TO CULTURE (04/22/2023 6:48 PM CDT) WBCs,UA PACKED 0 - 2 /HPF 04/22/2023 9:06 PM CDT [facility] PATH [facility] LAB MEDICINE RBCs,UA PACKED 0 - 3 /HPF 04/22/2023 9:06 PM CDT [facility] DEPT PATH AND LAB MEDICINE Comment,UA Criteria for reflex to culture are WBC>10, Positive Nitrite, and/or >=+1 leukocytes. If quantity is not sufficient, an addendum will follow. 04/22/2023 9:06 PM CDT [facility] DEPT PATH AND LAB MEDICINE UA Reflex Specimen Type and Source URINE CATHETER, IN AND OUT 04/22/2023 6:16 PM CDT [facility] DEPT PATH AND LAB MEDICINE Bacteria,UA MODERATE(A) NEG-NEG 04/22/2023 9:06 PM CDT [facility] DEPT PATH AND LAB MEDICINE Uric Acid Crystals FEW 04/22/2023 9:06 PM CDT [facility] DEPT PATH AND LAB MEDICINE Squamous Epithelial Cells 2-5 0 - 5 04/22/2023 9:06 PM CDT [facility] DEPT PATH AND LAB MEDICINE Amorphous Sedimate,UA FEW 04/22/2023 9:06 PM CDT [facility] DEPT PATH AND LAB MEDICINE Urine (Catheter, In and Out) 04/22/2023 6:48 PM CDT 04/22/2023 7:40 PM CDT Brian Vogel SUPERINTENDENT COMMISSARY-CHIEF DATA OFFICER URINE ORDERABLES [facility] PATH AND LAB MEDICINE [address] [place] [address], * (ABNORMAL) URINALYSIS DIPSTICK REFLEX TO CULTURE (04/22/2023 6:48 PM CDT) Color,UA YELLOW 04/22/2023 9:06 PM CDT [facility] DEPT PATH AND LAB MEDICINE Turbidity,UA 2+(A) CLEAR-EDUARDA R 04/22/2023 9:06 PM CDT [facility] DEPT PATH AND LAB MEDICINE Specific [place]-Urine 1.017 1.005 - 1.030 04/22/2023 9:06 PM CDT [facility] DEPT PATH AND LAB MEDICINE Comment:NOTE NEW REFERENCE R VALERIO pH,UA 5.0 5.0 - 8.0 04/22/2023 9:06 PM CDT [facility] DEPT PATH AND LAB MEDICINE Protein,UA 2+(A) NEG-NEG 04/22/2023 9:06 PM CDT [facility] DEPT PATH AND LAB MEDICINE Glucose,UA NEG NEG-NEG 04/22/2023 9:06 PM CDT [facility] DEPT PATH AND LAB MEDICINE Ketones,UA 1+(A) NEG-NEG 04/22/2023 9:06 PM CDT [facility] DEPT PATH AND LAB MEDICINE Bilirubin,UA NEG NEG-NEG 04/22/2023 9:06 PM CDT [facility] DEPT PATH AND LAB MEDICINE Blood,UA 3+(A) NEG-NEG 04/22/2023 9:06 PM CDT [facility] PATH AND LAB MEDICINE Urobilinogen,U A NORMAL NORM-GENE L 04/22/2023 9:06 PM CDT [facility] PATH AND LAB MEDICINE Nitrite,UA NEG NEG-NEG 04/22/2023 9:06 PM CDT [facility] PATH AND LAB MEDICINE Leukocytes,UA 3+(A) NEG-NEG 04/22/2023 9:06 PM CDT [facility] PATH AND LAB MEDICINE Urine Ascorbic Acid, UA NEG NEG-NEG 04/22/2023 9:06 PM CDT [facility] DEPT PATH AND LAB MEDICINE URINE SPECIMEN / Unknown 04/22/2023 6:48 PM CDT 04/22/2023 7:40 PM CDT Brian Vogel SUPERINTENDENT COMMISSARY-CHIEF DATA OFFICER URINE ORDERABLES Performing Organization Address City/[facility]/ZIP Co de Phone Number [facility] PATH AND LAB MEDICINE [address] [place] [address], [place] * CULTURE-BLOOD W/SENSITIVITY (04/22/2023 6:48 PM CDT) Battery Name BLOOD CULTURE [facility] DEPT PATH AND LAB MEDICINE Report Status FINAL 04/28/2023 [facility] PATH AND LAB MEDICINE Specimen Description BLOOD BLOOD, PERIPHERAL ARM RIGHT [facility] DEPT PATH AND LAB MEDICINE Special Requests No special requests 04/22/2023 6:16 PM CDT [facility] PATH AND LAB MEDICINE Culture NO GROWTH 5 DAYS 04/28/2023 5:39 AM CDT [facility] PATH AND LAB MEDICINE Blood PERIPHERAL BLOOD SPECIMEN / Unknown 04/22/2023 6:48 PM CDT 04/22/2023 7:51 PM CDT Comment:ARM~RIGHT Brian Vogel SUPERINTENDENT COMMISSARY-CHIEF DATA OFFICER MICROBIOLOGY ORDERAB LES [facility] PATH AND LAB MEDICINE [address] [place] [address], [place] * POC SODIUM (04/22/2023 6:47 PM CDT) Sodium-POC 141 137 - 147 MMOL/L 04/22/2023 6:50 PM CDT [facility] PATH AND LAB MEDICINE POC 04/22/2023 6:4 7 PM CDT 04/22/2023 6:50 PM CDT Kate De La Cruz MD OTHER LABORATORY [facility] PATH AND LAB MEDICINE POC [address] [place] [address] * POC POTASSIUM (04/22/2023 6:47 PM CDT) [facility] Potassium-POC 4.5 3.5 - 5.1 MMOL/L 04/22/2023 6:50 PM CDT [facility] PATH AND LAB MEDICINE POC 04/22/2023 6:4 7 PM CDT 04/22/2023 6:50 PM CDT Kate De La Cruz MD OTHER LABORATORY Performing Organization Address City/[facility]/ZIP Co de Phone Number [facility] PATH AND LAB MEDICINE POC [address] [place] [address] * POC HEMATOCRIT (04/22/2023 6:47 PM CDT) [facility] Hemoglobin POC 12.2 12.0 - 15.0 GM/DL 04/22/2023 6:50 PM CDT [facility] PATH AND LAB MEDICINE POC Hematocrit POC 36.0 36 - 45 % 04/22/2023 6:50 PM CDT [facility] PATH AND LAB MEDICINE POC 04/22/2023 6:4 7 PM CDT 04/22/2023 6:50 PM CDT Kate De La Cruz MD OTHER LABORATORY [facility] PATH AND LAB MEDICINE POC [address] [place] [address] * (ABNORMAL) POC BLOOD GAS ARTERIAL (04/22/2023 6:47 PM CDT) PH-ART-POC 7.29(L) 7.35 - 7.45 04/22/2023 6:50 PM CDT [facility] DEPT PATH AND LAB MEDICINE POC RMD8-YQB-OCQ 38 35 - 45 MMHG 04/22/2023 6:50 PM CDT [facility] DEPT PATH AND LAB MEDICINE POC PO2-ART-POC 82 80 - 100 MMHG 04/22/2023 6:50 PM CDT [facility] DEPT PATH AND LAB MEDICINE POC Base Def-ART-POC 9.0 MMOL/L 04/22/2023 6:50 PM CDT [facility] DEPT PATH AND LAB MEDICINE POC O2 Sat-ART-POC 95.0 95 - 99 % 04/22/2023 6:50 PM CDT [facility] DEPT PATH AND LAB MEDICINE POC Bicarbonate-AR T-POC 18.1(L) 21 - 28 MMOL/L 04/22/2023 6:50 PM CDT [facility] DEPT PATH AND LAB MEDICINE POC 04/22/2023 6:4 7 PM CDT 04/22/2023 6:50 PM CDT Kate De La Cruz MD OTHER LABORATORY [facility] PATH AND LAB MEDICINE POC [address] [place] [address] * (ABNORMAL) POC GLUCOSE (04/22/2023 6:44 PM CDT) Glucose, POC 146(H) 70 - 100 MG/DL 04/22/2023 6:46 PM CDT [facility] PATH AND LAB MEDICINE POC 04/22/2023 6:4 4 PM CDT 04/22/2023 6:46 PM CDT Kate De La Cruz MD OTHER LABORATORY [facility] PATH AND LAB MEDICINE POC [address] [place] [address] * PHOSPHORUS (04/22/2023 6:40 PM CDT) Phosphorus 2.5 2.0 - 4.5 MG/DL 04/22/2023 8:11 PM CDT [facility] PATH AND LAB MEDICINE BLOOD / Unknown 04/22/2023 6:40 PM CDT 04/22/2023 6:55 PM CDT Brian Vogel APRN-CHIEF DATA OFFICER LABORATORY ORDERABLE S [facility] PATH AND LAB MEDICINE [address] [place] [address], * (ABNORMAL) MAGNESIUM (04/22/2023 6:40 PM CDT) Magnesium 2.8(H) 1.6 - 2.6 mg/dL 04/22/2023 8:11 PM CDT [facility] PATH AND LAB MEDICINE BLOOD / Unknown 04/22/2023 6:40 PM CDT 04/22/2023 6:55 PM CDT Brian Vogel APRN-CHIEF DATA OFFICER LABORATORY ORDERABLE S Performing Organization Address City/[facility]/ZIP Co de Phone Number [facility] PATH AND LAB MEDICINE [address] [place] [address], * IONIZED CALCIUM (04/22/2023 6:40 PM CDT) Ionized Calcium 1.21 1.0 - 1.3 MMOL/L 04/22/2023 7:00 PM CDT [facility] PATH AND LAB MEDICINE BLOOD / Unknown 04/22/2023 6:40 PM CDT 04/22/2023 6:58 PM CDT Brian Vogel APRN-CHIEF DATA OFFICER LABORATORY ORDERABLE S [facility] PATH AND LAB MEDICINE [address] [place] [address], * (ABNORMAL) LACTIC ACID (BG - RAPID LACTATE) (04/22/2023 6:40 PM CDT) Lactic Acid,BG 2.4(H) 0.5 - 2.0 MMOL/L 04/22/2023 7:00 PM CDT [facility] DEPT PATH AND LAB MEDICINE BLOOD / Unknown 04/22/2023 6:40 PM CDT 04/22/2023 6:58 PM CDT Brian Vogel SUPERINTENDENT COMMISSARY-CHIEF DATA OFFICER OTHER LABORATORY [facility] DEPT PATH AND LAB MEDICINE [address] [place] [address], * (ABNORMAL) COMPREHENSIVE METABOLIC PANEL (04/22/2023 6:40 PM CDT) Pathologist [facility] Sodium 140 137 - 147 MMOL/L 04/22/2023 8:11 PM CDT [facility] DEPT PATH AND LAB MEDICINE Potassium 4.3 3.5 - 5.1 MMOL/L 04/22/2023 8:11 PM CDT [facility] DEPT PATH AND LAB MEDICINE Chloride 112(H) 98 - 110 MMOL/L 04/22/2023 8:11 PM CDT [facility] DEPT PATH AND LAB MEDICINE Glucose 133(H) 70 - 100 MG/DL 04/22/2023 8:11 PM CDT [facility] DEPT PATH AND LAB MEDICINE Blood Urea Nitrogen 21 7 - 25 MG/DL 04/22/2023 8:11 PM CDT [facility] DEPT PATH AND LAB MEDICINE Creatinine 0.77 0.4 - 1.00 MG/DL 04/22/2023 8:11 PM CDT [facility] DEPT PATH AND LAB MEDICINE Calcium 8.4(L) 8.5 - 10.6 MG/DL 04/22/2023 8:11 PM CDT [facility] DEPT PATH AND LAB MEDICINE Total Protein 6.3 6.0 - 8.0 G/DL 04/22/2023 8:11 PM CDT [facility] DEPT PATH AND LAB MEDICINE Total Bilirubin 0.7 0.3 - 1.2 MG/DL 04/22/2023 8:11 PM CDT [facility] DEPT PATH AND LAB MEDICINE Albumin 3.6 3.5 - 5.0 G/DL 04/22/2023 8:11 PM CDT [facility] DEPT PATH AND LAB MEDICINE Alk Phosphatase 47 25 - 110 U/L 04/22/2023 8:11 PM CDT [facility] DEPT PATH AND LAB MEDICINE AST (SGOT) 47(H) 7 - 40 U/L 04/22/2023 8:11 PM CDT [facility] DEPT PATH AND LAB MEDICINE CO2 18(L) 21 - 30 MMOL/L 04/22/2023 8:11 PM CDT [facility] DEPT PATH AND LAB MEDICINE ALT (SGPT) 35 7 - 56 U/L 04/22/2023 8:11 PM CDT [facility] DEPT PATH AND LAB MEDICINE Anion Gap 10 3 - 12 04/22/2023 8:11 PM CDT [facility] DEPT PATH AND LAB MEDICINE eGFR >60 >60 mL/min 04/22/2023 8:11 PM CDT [facility] DEPT PATH AND LAB MEDICINE Comment:eGFR calculated nicolás ryder the CKD-EPIcr_R equation BLOOD / Unknown 04/22/2023 6:40 PM CDT 04/22/2023 6:55 PM CDT Brian Mina Jaspreet SUPERINTENDENT COMMISSARY-CHIEF DATA OFFICER LABORATORY ORDERABLE S Performing Organization Address [facility]/ZIP Co de Phone Number [facility] PATH [facility] LAB MEDICINE [address] [place] [address], [place] * (ABNORMAL) PTT (APTT) (04/22/2023 6:40 PM CDT) APTT 39.3(H) 24.0 - 36.5 SEC 04/22/2023 8:06 PM CDT [facility] PATH AND LAB MEDICINE BLOOD / Unknown 04/22/2023 6:40 PM CDT 04/22/2023 6:55 PM CDT Brian Mina Jaspreet SUPERINTENDENT COMMISSARY-CHIEF DATA OFFICER LABORATORY ORDERABLE S [facility] PATH [facility] LAB MEDICINE [address] [place] [address], [place] * (ABNORMAL) PROTIME INR (PT) (04/22/2023 6:40 PM CDT) Protime 15.1(H) 9.5 - 14.2 SEC 04/22/2023 8:06 PM CDT [facility] DE[facility] PATH AND LAB MEDICINE INR 1.4(H) 0.8 - 1.2 04/22/2023 8:06 PM CDT [facility] DEPT PATH AND LAB MEDICINE BLOOD / Unknown 04/22/2023 6:40 PM CDT 04/22/2023 6:55 PM CDT Brian Vogel SUPERINTENDENT COMMISSARY-CHIEF DATA OFFICER LABORATORY ORDERABLE S [facility] DEPT PATH AND LAB MEDICINE [address] [place] [address], * (ABNORMAL) CBC AND DIFF (04/22/2023 6:40 PM CDT) White Blood Cells 36.7(H) 4.5 - 11.0 K/UL 04/22/2023 7:40 PM CDT [facility] DEPT PATH AND LAB MEDICINE RBC 4.14 4.0 - 5.0 M/UL 04/22/2023 7:40 PM CDT [facility] DEPT PATH AND LAB MEDICINE Hemoglobin 11.8(L) 12.0 - 15.0 GM/DL 04/22/2023 7:40 PM CDT [facility] DEPT PATH AND LAB MEDICINE Hematocrit 35.6(L) 36 - 45 % 04/22/2023 7:40 PM CDT [facility] DEPT PATH AND LAB MEDICINE MCV 86.0 80 - 100 FL 04/22/2023 7:40 PM CDT [facility] DEPT PATH AND LAB MEDICINE MCH 28.4 26 - 34 PG 04/22/2023 7:40 PM CDT [facility] DEPT PATH AND LAB MEDICINE MCHC 33.1 32.0 - 36.0 G/DL 04/22/2023 7:40 PM CDT [facility] DEPT PATH AND LAB MEDICINE RDW 14.2 11 - 15 % 04/22/2023 7:40 PM CDT [facility] DEPT PATH AND LAB MEDICINE Platelet Count 157 150 - 400 K/UL 04/22/2023 7:40 PM CDT [facility] DEPT PATH AND LAB MEDICINE MPV 8.8 7 - 11 FL 04/22/2023 7:40 PM CDT [facility] DEPT PATH AND LAB MEDICINE Neutrophils 94(H) 41 - 77 % 04/22/2023 7:40 PM CDT [facility] DEPT PATH AND LAB MEDICINE Lymphocytes 2(L) 24 - 44 % 04/22/2023 7:40 PM CDT [facility] DEPT PATH AND LAB MEDICINE Monocytes 3(L) 4 - 12 % 04/22/2023 7:40 PM CDT [facility] DEPT PATH AND LAB MEDICINE Eosinophils 1 0 - 5 % 04/22/2023 7:40 PM CDT [facility] DEPT PATH AND LAB MEDICINE Basophils 0 0 - 2 % 04/22/2023 7:40 PM CDT [facility] DEPT PATH AND LAB MEDICINE Absolute Neutrophil Count 34.39(H) 1.8 - 7.0 K/UL 04/22/2023 7:40 PM CDT [facility] DEPT PATH AND LAB MEDICINE Absolute Lymph Count 0.71(L) 1.0 - 4.8 K/UL 04/22/2023 7:40 PM CDT [facility] DEPT PATH AND LAB MEDICINE Absolute Monocyte Count 1.13(H) 0 - 0.80 K/UL 04/22/2023 7:40 PM CDT [facility] DEPT PATH AND LAB MEDICINE Absolute Eosinophil Count 0.35 0 - 0.45 K/UL 04/22/2023 7:40 PM CDT [facility] DEPT PATH AND LAB MEDICINE Absolute Basophil Count 0.11 0 - 0.20 K/UL 04/22/2023 7:40 PM CDT [facility] DEPT PATH AND LAB MEDICINE BLOOD / Unknown 04/22/2023 6:40 PM CDT 04/22/2023 6:55 PM CDT Brian Vogel SUPERINTENDENT COMMISSARY-CHIEF DATA OFFICER LABORATORY ORDERABLE S [facility] DEPT PATH AND LAB MEDICINE [address] [place] [address], [place] * TELEMETRY STRIPS-SCAN (04/22/2023 12:00 AM [...] provider. Scanned Document PROCEDURE DUMMY ORDE RS documented in this encounter Visit Diagnoses Diagnosis Septic shock (HCC)- Primary Unspecified septicemia Ureteral stone Calculus of ureter Septic shock (HCC) Unspecified septicemia Severe sepsis with acute organ dysfunction (HCC) Unspecified septicemia Acute hypoxemic respiratory failure (HCC) Hydronephrosis of right kidney Hydronephrosis Right ureteral stone Calculus of ureter Acute pulmonary edema (HCC) Acute edema of lung, unspecified Acute encephalopathy Encephalopathy, unspecified Bacteremia Atrial fibrillation with RVR (HCC) Atrial fibrillation Acute on chronic systolic heart failure (HCC) Acute on chronic systolic heart failure Encephalopathy Encephalopathy, unspecified Acute hypoxemic respiratory failure (HCC) Pleural effusion Unspecified pleural effusion Tachycardia Tachycardia, unspecified Pneumonia Pneumonia, organism unspecified UTI (urinary tract infection) Urinary tract infection, site not specified Bacteremia Atrial fibrillation with RVR (HCC) Atrial fibrillation Systolic dysfunction Heart disease, unspecified * Advance Care Planning/Resuscitation Status - Brian Vogel APRN-NP - 04/22/2023 7:35 PM CDT Advance Care Planning/Resuscitation Status Conversation Individuals present for advance care planning conversation: advanced practice provider and patient Pertinent details of conversation (including direct quotes from patient or surrogate): On arrival to the MICU, I asked Silke about her code status. I asked her if she would like chest compressions ifher heart were to stop, BiPAP or intubation if she were require respiratory support or to have significant respiratory distress, vasopressors for blood pressure support, or cardioversion if heart rhythm changes to a-fib. She said yes to all of these interventions. Outcome of conversation: Full Code Does patient want a TPOPP form at discharge? Need to assess Documents completed as a result of this conversation: None Other documents present, which outline patient/surrogate wishes: None documented in this encounter Admitting Diagnoses Diagnosis Septic shock (HCC) Unspecified septicemia documented in this encounter Administered Medications Inactive Administered Medications Medication Order MAR Action Action Date Dose Rate Site acetaminophen (TYLENOL) tablet 650 mg 650 mg, Oral, EVERY 4 HOURS PRN, Starting on Fri04/28/23 at 0908, Until Fri05/01/23 at 1921, Temp > 38 C, TOTAL ACETAMINOPHEN DOSE NOT TO EXCEED 4GM DAILY albuterol sulfate (PROAIR HFA) inhaler 2 puff 2 puff, Inhalation, RT NEEDED, Starting on Fri04/29/23 at 0812, Until Fri05/01/23 at 1921, Wheezing, When administered by RT, will be per RT policy., [facility] Procedure Area Only - Medications ALBUTEROL SULFATE 2.5 MG /3 ML (0.083 %) IN [facility] (Cabinet Override) NOW, 1 dose, On Fri04/22/23 at 1830, Created by cabinet override, Created by cabinet override Given 04/22/2023 6:21 PM CDT 2.5 mg albuterol-ipratropium (DUONEB) nebulizer solution 3 mL 3 mL, Inhalation, RT EVERY 4 HOURS PRN, Starting on Fri04/22/23 at 1826, Until Essence 05/01/23 at 1921, RT PROTOCOL, When administered by RT, will be per RT policy. Given 04/24/2023 4:08 AM CDT 3 mL apixaban (ELIQUIS) tablet 5 mg 5 mg, Oral, TWICE DAILY, First dose on Fri04/29/23 at 2100, Until Discontinued, If patient unable to swallow whole tablets, may crush 5mg or 2.5mg tablets and suspend in 60mL of water, D5W, or apple juice or mix with applesauce; administer immediately. For delivery through a nasogastric tube, crushed tablets maybe suspended in 60mL of water or D5W followed immediately by delivery. NOTE: This is a HIGH ALERT Medication. Given 05/01/2023 8:25 AM CDT 5 mg documented in this encounter Discontinued Medications Medication Sig Discontinue Reason Start Date End Da te nystatin (MYCOSTATIN) 100,000 units/mL oral suspension RINSE AND SPIT WITH 2 ML BY MOUTH TWICE DAILY FOR 3 WEEKS 04/15/2023 05/01/2023 losartan (COZAAR) 50 mg tablet Take one tablet by mouth daily. 05/01/2023 documented as of this encounter Historical Medications * This list may reflect changes made after this encounter. Medication Sig Dispensed Refills Start Date End Date losartan (COZAAR) 50 mg tablet Take one tablet by mouth daily. 0 05/01/2023 nystatin (MYCOSTATIN) 100,000 units/mL oral suspension RINSE AND SPIT WITH 2 ML BY MOUTH TWICE DAILY FOR 3 WEEKS 0 04/15/2023 05/01/2023 added in this encounter Active and Recently Administered Medications Times are shown in CDT. Scheduled Medication Order 04/29/2023 04/30/2023 05/01/2023 apixaban (ELIQUIS) tablet 5 mg 5 mg, Oral, TWICE DAILY, First dose on Fri04/29/23 at 2100, Until Discontinued, If patient unable to swallow whole tablets, may crush 5mg or 2.5mg tablets and suspend in 60mL of water, D5W, or apple juice or mix with applesauce; administer immediately. For delivery through a nasogastric tube, crushed tablets maybe suspended in 60mL of water or D5W followed immediately by delivery. NOTE: This is a HIGH ALERT Medication. 2044 (Given - Provider: Miryam Boston RN) 0854 (Given - Provider: Sabas Saxena RN)2099 (Given - Provider: Miryam Boston RN) 0825 (Given - Provider: Vipul Keenan, RN) atorvastatin (LIPITOR) tablet 40 mg 40 mg, Oral, DAILY, First dose on Fri04/29/23 at 1830, Until Discontinued 2049 (Given - Provider: Miryam Boston RN) 0854 (Given - Provider: Sabas Saxena RN) 0825 (Given - Provider: Vipul Keenan RN) cefTRIAXone (ROCEPHIN) IVP 2 g (CANCELED) 2 g, Intravenous, EVERY 24 HOURS, 7 doses, First dose (after last modification) on Fri04/25/23 at 2030, Last dose on Fri05/01/23 at 2030, INSTR: IV PUSH -- RECONSTITUTE EACH 1 GM WITH 10 MLS of 0.9% NACL (NS) or STERILE WATER (SW) or DEXTROSE 5% (D5W) 2045 (Given - Provider: Miryam Boston RN) clopiDOGreL (PLAVIX) tablet 75 mg 75 mg, Oral, DAILY, First dose on Fri04/29/23 at 1730, Until Discontinued, This Medication can increase the risk of bleeding and may need to be held prior to surgery or invasive procedures. Consult physician in advance. 1717 (Given - Provider: Sabas Saxena RN) 0854 (Given - Provider: Sabas Saxena RN) 0825 (Given - Provider: Vipul Keenan RN) enoxaparin (LOVENOX) syringe 80 mg (CANCELED) 80 mg (rounded from 80.4 mg = 1 mg/kg 80.4 kg), Subcutaneous, TWICE DAILY, First dose on Fri04/24/23 at 0600, Until Discontinued, For patients undergoing surgery: Consult physician in advance -- enoxaparin is an anticoagulant and may need to be held for 12hr prior to surgery or invasive procedures. NOTE: This is a HIGH ALERT Medication. 0614 (Given - Provider: Miryam Boston RN) insulin aspart (U-100) (NOVOLOG FLEXPEN U-100 INSULIN) injection PEN 0-6 Units 0-6 Units, Subcutaneous, EVERY 4 HOURS, First dose on Fri04/25/23 at 1600, Until Discontinued, LOW DOSE -POC glucose 181-220mg/dL at , , administer 1 unit insulin, at , 03* administer 0 units. -POC glucose 221-260mg/dL at , , administer 2 units insulin, at , * administer 1 unit. -POC glucose 261-300mg/dL at , , administer 3 units insulin, at , * administer 2 units. -POC glucose 301-350mg/dL at administer 4 units insulin, at , * administer 3 units. -POC glucose 351-400mg/dL at , , administer 5 units insulin, at , * administer 4 units. -POC glucose >400mg/dL at , administer 6 units insulin, at , * administer 5 units. *only if ordered 5x's daily For POCT glucose >350mg/dL give correction bolus and recheck POCT glucose in 2 hours. If POCT glucose at 2 hours >300mg/dL call physician for further orders. For patients who are not eating meals, continue to administer the appropriate correction factor. NOTE: This is a HIGH ALERT Medication., Dispense pens manually with initial order and then upon request. DO NOT uncheck "Do not dispense" 0109 (Med Not Given - Provider: Miryam Boston RN - Reason: Patient Refused)0348 (Med Not Given - Provider: Miryam Boston RN - Reason: Order parameters not met)0949 (Med Not Given - Provider: Sabas Saxena RN - Reason: Order parameters not met)1201 (Med Not Given - Provider: Sabas Saxena RN - Reason: Order parameters not met)1600 (Med Not Given - Provider: Sabas Saxena RN - Reason: Order parameters not met)2036 (Med Not Given - Provider: Miryam Boston RN - Reason: Order parameters not met)2316 (Med Not Given - Provider: Miryam Boston RN - Reason: Order parameters not met) 0310 (Med Not Given - Provider: Miryam Boston RN - Reason: Order parameters not met)0855 (Med Not Given - Provider: Sabas Saxena RN - Reason: Order parameters not met)1202 (Med Not Given - Provider: Sabas Saxena RN - Reason: Order parameters not met)1600 (Med Not Given - Provider: Sabas Saxena RN - Reason: Order parameters not met)1952 (Med Not Given - Provider: Miryam Boston RN - Reason: Order parameters not met)2358 (Med Not Given - Provider: Miryam Boston RN - Reason: Order parameters not met) 0335 (Med Not Given - Provider: Miryam Boston RN - Reason: Order parameters not met)0827 (Med Not Given - Provider: Vipul Keenan RN - Reason: Contraindicated)1351 (Med Not Given - Provider: Vipul Keenan RN - Reason: Contraindicated)1600 (Due) levoFLOXacin (LEVAQUIN) tablet 750 mg 750 mg, Oral, EVERY 24 HOURS, First dose on Fri04/30/23 at 1400, Until Discontinued, NURSING: Please educate patient and document: Do not give within 2 hours of antacids, magnesium, calcium, iron, zinc, or vitamins containing these minerals. Hold tube feedings 1 hour before and 2 hours after dose. 1500 (Given - Provider: Sabas Saxena RN) 1512 (Given - Provider: Vipul Keenan RN) losartan (COZAAR) tablet 25 mg 25 mg, Oral, DAILY, First dose on Fri04/26/23 at 1600, Until Discontinued 0900 (Automatically Held - Provider: Hussain Slaughter MD) 0900 (Automatically Held - Provider: Hussain Slaughter MD) 0900 (Automatically Held - Provider: Hussain Slaughter MD)192 (Unheld by Provider - Provider: Fabrice, Orders Discontinue) metoprolol succinate XL (TOPROL XL) tablet 50 mg 50 mg, Oral, DAILY, First dose on Fri04/29/23 at 2100, Until Discontinued, Hold for heart rate < 55 bpm or systolic BP < 95 tablets may be cut in half, DO NOT CRUSH or CHEW 2044 (Given - Provider: Miryam Boston RN) 2058 (Given - Provider: Miryam Boston RN) metoprolol tartrate (LOPRESSOR) tablet 50 mg (CANCELED) 50 mg, Feeding Tube, TWICE DAILY, First dose (after last modification) on Fri04/25/23 at 2100, Until Discontinued, Hold for heart rate < 60 bpm or SBP < 100 0616 (Given - Provider: Miryam Boston RN - Comment: HR 95 and episodes of RVR, BP 107/60. Giving early per physician order ) potassium chloride oral solution 60 mEq (COMPLETED) 60 mEq, Oral, ONCE, 1 dose, On Fri04/29/23 at 0930, Give with a meal or dilute solution with 4 oz of water. 0955 (Given - Provider: Sabas Saxena RN) potassium chloride SR (K-DUR) tablet 40 mEq (COMPLETED) 40 mEq, Oral, ONCE, 1 dose, On Fri04/30/23 at 0915, Do NOT break or crush tablet Give with meal or full glass of water 0919 (Given - Provider: Sabas Saxena RN) regadenoson (LEXISCAN) injection 0.4 mg (COMPLETED) 0.4 mg, Intravenous, ONCE, 1 dose, On Fri04/29/23 at 0800, Inject 0.4 mg Regadenoson IV over 10 to 15 seconds, flush with 10 mL 0.9% Sodium Chloride solution IV over 10-20 seconds., MAC Procedure Area Only - Medications 0823 (Given - Provider: Nabila Santiago RN) RP DX N-13 ammonia injection 20 millicurie (COMPLETED) 20 millicurie, Intravenous, ONCE, 1 dose, On Fri04/29/23 at 0745 0806 (Given - Provider: René Hein) tamsulosin (FLOMAX) capsule 0.4 mg 0.4 mg, Oral, DAILY AFTER BREAKFAST, First dose on Fri04/23/23 at 1800, Until Discontinued, NURSING: Please educate patient and document: Give 1/2 hour following same meal everyday. Do not crush, chew or open the capsule. 0948 (Given - Provider: Sabas Saxena RN) 0854 (Given - Provider: Sabas Saxena RN) 0824 (Given - Provider: Vipul Keenan, RN) valACYclovir (VALTREX) tablet 1,000 mg 1,000 mg, Oral, TWICE DAILY, 14 doses, First dose on Fri04/29/23 at 1445, Last dose on Fri05/05/23 at 2100 1521 (Given - Provider: Sabas Saxena RN)2044 (Given - Provider: Miryam Boston, RN) 0855 (Given - Provider: Sabas Saxena RN)2058 (Given - Provider: Miryam Boston, RN) 08 (Given - Provider: Vipul Keenan RN) PRN Medication Order 04/29/2023 04/30/2023 05/01/2023 acetaminophen (TYLENOL) tablet 650 mg 650 mg, Oral, EVERY 4 HOURS PRN, Starting on Fri04/28/23 at 0908, Until Essence 05/01/23 at 1921, Temp > 38 C, TOTAL ACETAMINOPHEN DOSE NOT TO EXCEED 4GM DAILY albuterol sulfate (PROAIR HFA) inhaler 2 puff 2 puff, Inhalation, RT NEEDED, Starting on Fri04/29/23 at 0812, Until Essence 05/01/23 at 1921, Wheezing, When administered by RT, will be per RT policy., MAC Procedure Area Only - Medications albuterol-ipratropium (DUONEB) nebulizer solution 3 mL 3 mL, Inhalation, RT EVERY 4 HOURS PRN, Starting on Fri04/22/23 at 1826, Until Essence 05/01/23 at 1921, RT PROTOCOL, When administered by RT, will be per RT policy. dextrose 50% (D50) syringe 25-50 mL 25-50 mL (12.5-25 g), Intravenous, NEEDED, Starting on Fri04/25/23 at 1459, Until Essence 05/01/23 at 1921, Blood Sugar..., =< 70 mg/dL: See admin instructions, ==== Blood Sugar Patient Management Result Status Strategy ==== Blood Glucose Conscious, Oral carbohydrates 50-70 mg/dL able to take PO Conscious, 25mL (12.5g) dextrose 50% unable to take PO slow IV push Unconscious 50mL (25g) dextrose 50% slow IV push ==== Blood Glucose Conscious, Oral carbohydrates <50 mg/dL able to take PO Conscious, 50mL (25g) dextrose 50% unable to take PO slow IV push Unconscious 50mL (25g) dextrose 50% slow IV push ==== NOTE: This is a HIGH ALERT Medication. awmfwo-shxkphwds-jut,al-sim eth (FIRST-MOUTHWASH BLM) oral suspension 10 mL 10 mL, Swish & Swallow, EVERY 3 HOURS PRN, Starting on Fri04/28/23 at 0133, Until Fri05/01/23 at 1921, Mouth/Throat Pain 1757 (Given - Provider: Urmila Cardoso RN) eucalyptus-menthoL (HALLS) lozenge 1 lozenge (COMPLETED) 1 lozenge, Oral, ONCE PRN, 1 dose, Starting on Fri04/29/23 at 0712, Until Fri04/29/23 at 2359, Mouth/Throat Pain, minor irritation to the throat pain, sore throat, or sore mouth, MAC Procedure Area Only - Medications 0950 (Given - Provider: Sabas Saxena RN) hyoscyamine (ANASPAZ) rapid dissolve tablet 0.125 mg 0.125 mg, Sublingual, EVERY 4 HOURS PRN, Starting on Fri04/23/23 at 1647, Until Fri05/01/23 at 1921, Bladder Spasms loperamide (IMODIUM) oral solution 2 mg 2 mg, Oral, NEEDED, Starting on Fri04/30/23 at 1549, Until Fri05/01/23 at 1921, Diarrhea, GIVE WITH EACH LOOSE STOOL; NOT TO EXCEED 16MG/24HRS nitroglycerin (NITROSTAT) tablet 0.4 mg 0.4 mg, Sublingual, EVERY 5 MIN PRN, 3 doses, Starting on Fri04/29/23 at 0712, Until Fri05/01/23 at 1921, Other..., HTN or Chest Pain, Record BP before and after administration. Notify physician if chest pain persists after 3 doses. Obtain ECG after image acquisition if needed to assure baseline status., MAC Procedure Area Only - Medications phenoL (CHLORASEPTIC) spray 2 spray 2 spray, Mouth/Throat, NEEDED, Starting on Fri04/24/23 at 1349, Until Fri05/01/23 at 1921, Mouth/Throat Pain documented in this encounter Orders Medications Ordered That Fracisco ht Not Have Been Administered Count Last Ordered Date First Ordered Date loperamide (IMODIUM) oral solution 2 mg 1 1 albuterol sulfate (PROAIR HF A) inhaler 2 puff 1 04/29/2023 aminophylline injection 50 mg 1 04/29/2023 nitroglycerin (NITROSTAT) tablet 0.4 mg 1 1 sodium chloride 0.9 % infusion 1 04/29/20 23 acetaminophen (TYLENOL) tablet 650 mg 1 dextrose 50% (D50) syringe 25-50 mL 1 04/25 Diet Critical Care Enteral F eeding Volume Based Infusion 1 04/24/2023 metoprolol (LOPRESSOR) injection 2.5 mg 1 1 pancrelipase 20,880 Units/so dium bicarbonate 650 mg (KU CLOG DESTROYER) 1 04/24/2023 phenoL (CHLORASEPTIC) spray 2 spray 1 04/24 fentaNYL (SUBLIMAZE) BOLUS f or continuous infusion 1 04/23/2023 hyoscyamine (ANASPAZ) rapid dissolve tablet 0.125 mg 1 04/23/2023 iohexoL (OMNIPAQUE-300) 300 mg/mL injection 1 04/23/2023 nalOXone (NARCAN) injection 0.08 mg 1 04/23 heparin (porcine) PF syringe 5,000 Units 1 04/22/2023 piperacillin/tazobactam (ZOS YN) 4.5 g in sodium chloride 0.9% (NS) 100 mL IVPB (MB+) 1 04/22/2023 vancomycin (VANCOCIN) 1,000 mg in dextrose 5% (D5W) 250 mL IVPB (Ogly6Myx) 1 04/22/2023 vancomycin, pharmacy to manage 1 04/22/2023 Diet Count Last Ordered Date First Orde red Date DISCHARGE DIET REGULAR 1 05/01/2023 DISCHARGE DIET SUPPLEMENT 1 05/01/2023 Nursing Count Last Ordered Date First Orde red Date DISCHARGE ACTIVITY NORMAL 1 05/01/2023 DISCHARGE CONTACT 1 05/01/2023 DISCHARGE SIGNS/SYMPTOMS 1 05/01/2023 MAY USE LINE 1 04/24/2023 REMOVE STYLET 1 04/24/2023 NURSE COMMUNICATION 1 04/22/2023 Consult Count Last Ordered Date First Orde red Date CONSULT DIETITIAN 2 04/29/2023 04/24/2023 CONSULT CARDIOLOGY PHYSICIAN 2 04/28/2023 04/24/2023 CONSULT UROLOGY PHYSICIAN 1 04/22/2023 OT Count Last Ordered Date First Orde red Date OT CONSULT OCCUPATIONAL THERAPY 1 PT Count Last Ordered Date First Orde red Date PT CONSULT PHYSICAL THERAPY 1 04/22/2023 Admission Count Last Ordered Date First Orde red Date ADMIT TO INPATIENT (NO BED REQUEST) 1 04/22 Transfer Count Last Ordered Date First Orde red Date TRANSFER PATIENT (BED REQUEST) 1 04/25/2023 Discharge Count Last Ordered Date First Orde red Date [facility]CHARGE PAT[facility] NOW [facility] Equipment Count Last Ordered Date First Orde red Date COMPRESSION DEVICE, LEG 1 04/24/2023 PUMP, FEEDING 1 04/24/2023 PUMP IV CONTROL UNIT W/MODULES 2 04/23/2023 04/22/2023 Vital Signs Count Last Ordered Date First Orde red Date VITAL SIGNS 1 04/27/2023 Activity Count Last Ordered Date First Orde red Date MOBILITY 1 04/22/2023 Tube Feeding Count Last Ordered Date First Orde red Date SMALL BORE FEEDING TUBE PLACEMENT 1 023 SPECIALITY EQUIPMENT Count Last Ordered Date Fi rst Ordered Date COMMODE STANDARD 300LBS MAX 1 04/28/2023 RT One-Time Procedures Count Last Ordered Date First Ordered Date EXTUBATE PATIENT 1 04/23/2023 Nursing Task Count Last Ordered Date First Orde red Date VERIFY TUBE MARKING (CM) 1 04/24/2023 Appointment Request Count Last Ordered Date Fir st Ordered Date APPOINTMENT REQUEST: CARDIOL OGY HEART FAILURE 1 04/29/2023 Appointment Count Last Ordered Date First Orde red Date REQUEST FOR CARDIOLOGY APPOINTMENT [address] [facility]aint[facility] Count Last Ordered Date First Ordered Date PLACE AND MAINTAIN SCD 1 04/22/2023 Case Request Count Last Ordered Date First Orde red Date CASE REQUEST 1 04/23/2023 ADT Patient Update Count Last Ordered Date Firs t Ordered Date CHANGE SERVICE / LEVEL OF CA RE (NO BED REQUEST) 5 04/26/2023 04/22/2023 documented in this encounter Additional Health Concerns Infection Onset Date Last Indicated Resolved Time Covid-19 Rule-Out 04/22/2023 04/22/2023 04/22/2023 8:36 PM CDT Flu/RSV Rule-Out 04/22/2023 04/22/2023 04/22/2023 8:36 PM CDT C difficile Rule-Out 04/24/2023 04/25/2023 023 9:51 AM CDT Assessment Noted Time A fall risk assessment has been complete d for the patient 05/01/2023 8:05 AM CDT documented as of this encounter Care Teams Food And Nutrition Teacher Relationship Specialty Start Date End Date Dion Be DO [address] [place] [address] PCP - General Family Medicine 04/22/23 documented as of this encounter
--- OUTSIDE RECORDS SUMMARY | 2023-05-16 14:39 | XMS REPORT | Encounter Summary ---
Author Author [facility] Organization [facility] Address Unknown Phone Unavailable Care Team Providers Care Agriculture Consultant Name Role Phone Dion Be DO PCP [phone] Reason for Visit * Auth/Cert (Routine) Specialty Diagnoses / Procedures Referred By Contaddison t Referred To Contact Diagnoses Septic shock (HCC) Sepsis / Ureteral stone Referral ID Status Reason Start Date Expiration Date Visits Re quested Visits Authorized [id number] 1 1 Encounter Details Date Type Department Care Team Description 04/23/2023 4:30 AM CDT - 04/23/2023 6:05 AM CDT Surgery Operating Room: [address] 2 [place] [address] Jerald Lindquist MD [address] [facility] [address] [place], [place] [id number] CYSTOURETHROSCOPY WITH INDWELLING URETERAL STENT INSERTION Surgery Details Date/Time Status Location OR Service Patient Class Case Class Case Type Trauma Case? 04/23/23 4:30 AM Posted BH2 OR OR 27 Urology Inpatient Urgent - Life or limb threatening if intervention does not occur within 8 hrs or IP LOS will be prolonged Panel 1 Procedure LRB Anes Op Region Wound Class Comments CYSTOURETHROSCOPY WITH INDWE LLING URETERAL STENT INSERTION Right General Ureter Clean Right CYSTOURETHROSCOPY WITH URETE RAL CATHETERIZATION WITH/ WITHOUT IRRIGATION/ INSTILLATION/ URETEROPYELOGRAPHY Right General Ureter Clean RETROGRADE UROGRAPHY WITH/ WITHOUT KUB Right General U reter Clean Surgeon Surgeon Role Service Panel Jerald Lindquist MD Primary Urology 1 Natalee Sanchez MD Assisting Urology 1 Jonathan Fine MD Resident - Assisting Urology 1 documented in this encounter Social History Tobacco [...] Sign Reading Time Taken Comments Blood Pressure 93/66 04/23/2023 4:00 AM CDT Pulse 83 04/23/2023 4:00 AM CDT Temperature 36.8 C (98.2 F) 04/23/2023 4:00 AM C DT Respiratory Rate - - Oxygen Saturation 96% 04/23/2023 4:00 AM CDT Inhaled Oxygen Concentration - - Weight 80.9 kg (178 lb 5.6 oz) 04/23/2023 4:00 AM CDT Height 160 cm (5' 3") 04/22/2023 5:51 PM CDT Body Mass Index 30.89 04/24/2023 10:04 [...] Summary Completed By: Hussain Slaughter MD Service: [place] [address] Reason for hospitalization: Septic shock (HCC) [A41.9, R65.21] Primary Discharge Diagnosis: Septic shock (HCC) Hospital Diagnoses: Hospital Problems Active Problems * (Principal) Septic shock (HCC) Encephalopathy Acute hypoxemic respiratory failure (HCC) Pleural effusion Tachycardia Pneumonia UTI (urinary tract infection) Bacteremia Atrial fibrillation with RVR ([facility]) Systolic dysfunction Significant Past Medical History Hypertension [...] Follow-up visit with JAVON Palma [facility] (CVM Exam) [address] [facility] [id number] May 16, 2023 9:20 AM Office visit with Endy Calderon MD Urology: [facility] (Urology) [address] [facility]. [address] 2, [address] [facility] [address] May 29, 2023 2:30 PM Office visit with Ghazal Hook PA-C Urology: [facility] (Urology) [address] [facility]. [address] 2, [address] [facility] [address] Jun 12, 2023 2:30 PM Office visit with Jerald Lindquist MD Urology: [facility] (Urology) [address] [facility]. Level 2, [address] [facility] [address] Aug 05, 2023 9:00 AM Office visit with Derrek Barrett MD [facility]: [facility] [address] (CVM Exam) [address], [address] [facility] [address] Things you need to do Follow up with Dion Be DO Where: [address] [facility] [address] Contact information for after-discharge care [facility] Where: [address] [facility] [address] Service: Detention Consults, Procedures, Diagnostics, Micro, Pathology Consults: Cardiology and Urology Surgical Procedures & Dates: 04/23: Cystourethoscopy with stent placement Significant Diagnostic Studies, Micro and Procedures: noted in brief hospital course Significant Pathology: none Discharge Disposition, Condition Patient Disposition: Detention Facility [03] Condition at Discharge: Stable Code Status Code Status History Date Active Date Inactive Code Status Order ID 04/22/2023 [id number] 05/01/2023 1926 Full Code [id number] Briana Noel MD Inpatient Patient Instructions Activity [...] 05/01/2023 cc: Primary Care Physician: Dion Be Verified Referring physicians: Felicia, MD Felicia Additional provider(s): Did we miss something? If additional records are needed, please fax a request on office letterhead to [phone]. Please include the patient's name, date of , fax number and type of information needed. Additional request can be made by email at [email or web address] For general questions of information about electronic records sharing, call [phone]. * Tonya Patel - 05/01/2023 12:26 PM CDT POTATO CHIP SACKING MACHINE OPERATOR Note: Printed and placed transfer packet with pt's chart in room per request from MIGUEL ANGEL Chicas. Tonya Slade Aluminum Boat Inspector For additional assistance please contact [facility] *[phone] * Perry Bolton LMSW - 05/01/2023 11:41 AM CDT Case Management Progress Note NAME:Silke Hansen :1945 AGE: 77 y.o. ADMISSION DATE: 04/22/2023 DAYS ADMITTED: LOS: 9 days Today's Date: 05/01/2023 PLAN: [facility]. Expected Discharge Date: 05/01/2023 Is Patient Medically Stable: Yes Are there Barriers to Discharge? no INTERVENTION/DISPOSITION: Discharge Planning SW notified that pt is ready for d/c today. SW notified facility regarding d/c plan. SW tasked POTATO CHIP SACKING MACHINE OPERATOR to deliver transfer packet to pt's [facility]. SW requested team to complete d/c orders. SW was notified that transport is set for 4pm. SW updated team and pt's niece. SW will fax d/c orders to facility,and updated nurse on transport time, and provided number for report [phone]. No further needs identified at this time. Transportation Will the Patient Use Family Transport?: Yes Transportation Name, Phone and Availability #1: Son or Support Info or Referral Positive SDOH Domains and Potential Barriers Medication Needs Financial Legal Other Discharge Disposition Selected Continued Care - Admitted Since 04/22/2023 No services have been selected for the patient. Perry Bolton LMSW [facility] [employer], Work * Tonya Patel - 04/30/2023 2:32 PM CDT POTATO CHIP SACKING MACHINE OPERATOR Note: Was asked to update the [employer] portal with the accepting facility per request of MIGUEL ANGEL Chicas. Tonya Slade Aluminum Boat Inspector For additional assistance please contact [facility] *[phone] * Perry Bolton LMSW - 04/30/2023 11:55 AM CDT Case Management Progress Note NAME:Silke Hansen :1945 AGE: 77 y.o. ADMISSION DATE: 04/22/2023 DAYS ADMITTED: LOS: 8 days Today's Date: 04/30/2023 PLAN: Anticipate d[facility] to [facility] pending COVID result. Expected Discharge Date: 05/01/2023 Is Patient Medically Stable: Yes Are there Barriers to Discharge? no INTERVENTION/DISPOSITION: Discharge Planning Pt discussed during MPW huddle. SW followed up on referrals to SNF and was informed that [facility] is able to accept pt. [facility] was pt/families first choice. Facility stated that they need a COVID test prior to accepting. SW updated team. SW will fax COVID results once they are complete. SW was also notified by [employer] auth that auth was approved and were just requesting name of accepting facility. SW tasked POTATO CHIP SACKING MACHINE OPERATOR to upload name of accepting facility. SW [...] selected for the patient. Perry Bolton LMSW [facility] [employer], Work * Tonya Patel - 04/29/2023 3:38 PM CDT POTATO CHIP SACKING MACHINE OPERATOR Note: Started a SNF auth via the [employer] portal with a auth ID#: [id number] per request of MIGUEL ANGEL Chicas. Toyna Slade Aluminum Boat Inspector For additional assistance please contact [facility] * * Perry Bolton LMSW - 04/29/2023 [...] to the following facilities. SW also tasked POTATO CHIP SACKING MACHINE OPERATOR to submitfor [employer] auth. SW will continue to follow and assist with d/c planning. Referrals [facility] Transportation Will the Patient Use Family Transport?: Yes Transportation Name, Phone and Availability #1: Son or Support Info or Referral Positive SDOH Domains and Potential Barriers Medication Needs Financial Legal Other Discharge Disposition Selected Continued Care - Admitted Since 04/22/2023 No services have been selected for the patient. Perry Bolton LMSW [facility] Fara Grace * Tonya Patel - 04/28/2023 12:03 PM CDT [facility] Note: Emailed and Delivered a SNF list per request of MIGUEL ANGEL Chicas. Tonya Slade Aluminum Boat Inspector For additional assistance please contact [facility] * * Perry Bolton LMSW - 04/28/2023 [...] be at bedside later today. SW tasked POTATO CHIP SACKING MACHINE OPERATOR to deliver a list of SNF facilities. [...] selected for the patient. Perry Bolton LMSW [facility] [employer] Lesly, Work * Kyle Yoanletty - 04/24/2023 11:41 AM CDT Case Management [...] or concerns. Patient Address/Phone [address] [facility] [address] (home) Emergency Contact Extended Emergency Contact Information [...] No Outpatient Therapy PT: No OT: No ROUTE SUPERVISOR: No Detention Facility/Penitentiary SNF: No NH: No Inpatient Rehab IPR: No [facility]-Term Acute [facility] Hospital LTACH: No Acute Hospital Stay Acute Hospital Stay: In the past Was patient's stay within the last 30 days?: No Erin Wright LMSW, RADHAW Available on [place] * Faith River RN - 04/23/2023 1:00 [...] per primary team. - Pt admitted to [facility] on: 04/22/23 for: septic shock. Pt is [...] Discharge Disposition Disposition Code Departure Means Destination Detention Facility Wheelchair documented in this encounter Progress [...] including follow up/discharge instructions, occurred with patient [id number]. Hussain Slaughter MD 05/01/2023 Discharge Planning: greater [...] w/ a R ureter obstructive stone. [facility]. Upon arrival to she [...] regurg. PASP 30-35mmHg - Outside blood cultures (08/15) and urine culture grew Klebsiella oxytoca (one [...] months - Start Plavix -Continue to hold LOAN SERVICING REPRESENTATIVE Losartan. Resume as able. Afib w/ RVR [...] orprocedures, Referring and communication with other health rn patient care (when not separately reported), Documenting clinical information in the electronic or other health record and Care coordination (not separately reported). Discussed with Cardiology and Urology. Hussain Slaughter MD Internal Medicine, Hospitalist Voalte is the preferred method of communication. Please use the [employer] First Call for all patient-related communications. Personal [...] Q4H PRN, dextrose 50% (D50) IV PRN, muexga-hrqtqvtzt-ctm,al-simeth Q3H PRN, hyoscyamine Q4H PRN, loperamide (IMODIUM) [...] (04/30/23 0455) POC Glucose (Download): (!) 107 (04/30/231701) Radiology and other Diagnostics Review: Pertinent radiology [...] any urologic intervention, Urology has communicated with Cards forthis. Hussain Colvin MD D/w: Ameena * Maci [...] HTN, and obesity. She was transferred to [facility] on 04/22/23 to MICU for urosepsis. She initially presented to an urgent care clinic in [place] on 04/20/23 with complaints of right lower quadrant pain and chills x1 day. She was prescribed Bactrim and Zofran. However, patient did not fill these prescriptions. Her clinical status deteriorated the same day and she was taken to [facility] on04/20/23 and was found to be [...] of urology service patient was transferred to [facility]. On arrival to [facility] she was hemodynamically stable and off pressors. [...] unknown chronicity- we did discuss proceeding with [facility] +/- PCI. Patient wishes to recover from [...] mg po daily on 04/29/23 9. Appreciate Cement Mason Maintenance and Cardiac rehab input. Ongoin. BMP once [...] PA-C Department of Cardiovascular Medicine [facility] Available on Voalte/AMS/Pager [phone]: [address] segment Elevation Myocardial Infarction [...] and septic shock Major Complications or Comorbidities ([facility] Presumed CAD in the setting of abnormal [...] Output 800 ml Net 720 ml GDMT LOAN SERVICING REPRESENTATIVE Changes BB 04/24 metoprolol 5 Mg IV [...] Fibrillation with rapid Ventricular Response Atrial Tachycardia [id number] is elevated ~ 5 Presented in sinus [...] due to nephrolithiasis Acute toxic/metabolic encephalopathy-resolving No LOAN SERVICING REPRESENTATIVE O2 requirements Required intubation in the OR. She was extubated on 04/23/2023 Hypertension: LOAN SERVICING REPRESENTATIVE losartan resumed at a lower dose of [...] 04/23/2023 Performed by Jerald Lindquist MD at [facility] OR CYSTOURETHROSCOPY WITH URETERAL CATHETERIZATION WITH/ WITHOUT IRRIGATION/ INSTILLATION/ URETEROPYELOGRAPHY Right 04/23/2023 Performed by Jerald Lindquist MD at [facility] OR RETROGRADE UROGRAPHY WITH/ WITHOUT KUB Right 04/23/2023 Performed by Jerald Lindquist MD at [facility] OR No family history on file. Social [...] Enteral Feeding Volume Based Infusion Stopped (04/26/23 6275) PRN and Respiratory Meds:acetaminophen Q4H PRN, albuterol sulfate PRN, albuterol-ipratropium Q4H PRN, dextrose 50% (D50) IV PRN, xivihu-eqmjjaoac-ebs,al-simeth Q3H PRN, hyoscyamine Q4H PRN, loperamide (IMODIUM) oral solution PRN, nitroglycerin Q5 MIN PRN, pancrelipase 20,880 Units/sodium bicarbonate 650 mg (KU CLOG DESTROYER) PRN (Police Booking Officer from Rx), phenoL PRN Vital Signs: Last Filed Vital Signs: 24 Hour Range BP: 108/45 (04/30 111) Temp: 36.7 C (98.1 F) (04/30 1112) Pulse: 92 (04/30 1112) Respirations: 16 PER MINUTE (04/30 1112) SpO2: 95 % (04/30 111) O2 Device: None (Room air) (04/30 1112) [...] with questions or concerns. Derrek Barrett MD, [facility] Department of Cardiovascular Medicine [facility] * Zeynep Goddard RN - 04/30/2023 9:44 AM CDT CARDIOPULMONARY REHABILITATION INPATIENT ASSESSMENT Cardiac Rehabilitation Staff: Zeynep Goddard RN Discharge Date: Demographics Pre-admit Dx: Date of Admission: 04/22/2023 Room: [place] [address] : 1945 Insurance: Primary: [employer] Medicare Secondary: none Address: [place] [address] [address] [facility] [address] Patient (home) Marital Status: Occupation: Unknown ED Contact: Brennan Hansen (Spouse) ED Phone #: [phone] CTS: NA Upper Marker: Nena Cardiac Procedures and Events 04/30/23 (NSTEMI) [...] Teaching Completed: 04/30/23 Outpatient Cardiopulmonary Rehabilitation Outpatient [facility] Rehab: Yes Referral Faxed to: [facility]- [facility] [phone] Date Faxed: 04/30/23 Location: [place], [place] [phone] If [facility], Sent to Staff: Zeynep Goddard RN 04/30/2023 * Sun Rodgers, OT - 04/30/2023 9:38 AM CDT OCCUPATIONAL [...] Comment: Ramped entrance. 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 She is [...] and can safely use the walker. Therapist: MARLEE Landeros [id number] Date: 04/30/2023 * Stacie Palomares PTA - [...] stone in R ureter and transferred to [facility] 04/22 for Urology consult. On arrival to [...] HTN, and obesity. She was transferred to [facility] on 04/1023 to MICU for urosepsis. She initiallypresented to an urgent care clinic in [place] on 04/20/2023 with complaints of right lower quadrant pain and chills x1 day. She was prescribed Bactrim and Zofran. However, patient did not fill these prescriptions. Her clinical status deteriorated the same day and she was taken to [facility] on 04/20/2023 and was found to [...] lack of urology service patientwas transferred to [facility]. On arrival to [facility] she was hemodynamically stable and off pressors. [...] unknown chronicity- we did discuss proceeding with [facility] +/- PCI. Patient wishes to recover from [...] Atorvastatin 40 mg po daily (ordered). 8. Cement Mason Maintenance consultation to discuss sodium restricted diet (placed). [...] PA-C Department of Cardiovascular Medicine [facility] Available on Voalte/AMS/Pager [phone]: [address] segment Elevation Myocardial Infarction [...] and septic shock Major Complications or Comorbidities ([facility] Presumed CAD in the setting of abnormal [...] Output 150 ml Net 330 ml GDMT LOAN SERVICING REPRESENTATIVE Changes BB 04/24 metoprolol 5 Mg IV [...] Fibrillation with rapid Ventricular Response Atrial Tachycardia [id number] is elevated ~ 5 Presented in sinus [...] due to nephrolithiasis Acute toxic/metabolic encephalopathy-resolving No LOAN SERVICING REPRESENTATIVE O2 requirements Required intubation in the OR. She was extubated on 04/23/2023 Hypertension: LOAN SERVICING REPRESENTATIVE losartan resumed at a lower dose of [...] 04/23/2023 Performed by Jerald Lindquist MD at [facility] OR CYSTOURETHROSCOPY WITH URETERAL CATHETERIZATION WITH/ WITHOUT IRRIGATION/ INSTILLATION/ URETEROPYELOGRAPHY Right 04/23/2023 Performed by Jerald Lindquist MD at [facility] OR RETROGRADE UROGRAPHY WITH/ WITHOUT KUB Right 04/23/2023 Performed by Jerald Lindquist MD at [facility] OR No family history on file. Social [...] 1545) PRN and Respiratory Meds:acetaminophen Q4H PRN, albuterol sulfate PRN, albuterol-ipratropium Q4H PRN, aminophylline PRN, dextrose 50% (D50) IV PRN, aazulv-oeyrrqoum-qah,al-simeth Q3H PRN, jfqccvbofvcV5Z PRN, loperamide (IMODIUM) oral solution PRN, nitroglycerin Q5 MIN PRN, pancrelipase 20,880 Unit s/sodium bicarbonate 650 mg ([facility] CLOG DESTROYER) PRN (Police Booking Officer from Rx), phenoL PRN, sodium chloride 0.9% [...] KELSEY, [place] Lisa. Patient doing well this morning. We discussed [...] with questions or concerns. Derrek Barrett MD, [facility] Department of Cardiovascular Medicine [facility] * Hussain Slaughter MD - 04/29/2023 [...] plan for 10 days total -Urology consulted -David Flomax -Maintain Benson through discharge, urology outpatient [...] couple of months - Start Plavix -Restart LOAN SERVICING REPRESENTATIVE Losartanat reduced dose 25mg daily ([id number] daily LOAN SERVICING REPRESENTATIVE) Afib w/ RVR (new onset) Acute on [...] Assessment Non-blanchable;Red 04/29/23 1458 Ning-wound Assessment Intact 04/29/23 1458 Wound Drainage Amount None 04/29/23 1458 Wound Dressing Status None/open to air 04/29/23 1458 Wound Care Treatment or ointment applied 04/26/23 0800 Wound Dressing and/or Treatment A & D ointment 04/29/23 1458 Number of days: 5 FEN: No IVF, [...] orprocedures, Referring and communication with other health rn patient care (when not separately reported), Documenting clinical information in the electronic or other health record and Care coordination (not separately reported). Discussed with Cardiology. Hussain Slaughter MD Internal Medicine, Hospitalist Voalte is the preferred method of communication. Please use the [facility] [employer] First Call for all patient-related communications. Personal [...] 1545) PRN and Respiratory Meds:acetaminophen Q4H PRN, albuterol sulfate PRN, albuterol-ipratropium Q4H PRN, aminophylline PRN, dextrose 50% (D50) IV PRN, jiumjw-duaayoosp-tax,al-simeth Q3H PRN, cvhsqdgowitE6N PRN, loperamide (IMODIUM) oral solution PRN, nitroglycerin Q5 MIN PRN, pancrelipase 20,880 Unit s/sodium bicarbonate 650 mg (KU CLOG DESTROYER) PRN (Police Booking Officer from Rx), phenoL PRN, sodium chloride 0.9% [...] (Last 24 hours) Glucose: (!) 101 (04/29/23 8723) POC Glucose (Download): (!) 128 (04/29/23 1201) [...] Stacie Palomares PTA Date: 04/29/2023 * Natalee Estes RD - 04/29/2023 12:16 PM CDT CLINICAL NUTRITION [...] ? Recommend consuming soft protein foods like italian yogurt, cottage cheese and eggs Comments: RD [...] Current Oral Intake: Inadequate;Improving Estimated Calorie Needs: 0775-9876 (25-27 kcals/kg DBW, aka MSJ x 1.3-1.4 AF) Estimated Protein Needs: 76-96 (1.2-1.5 gm/kg per DBW 63.7 kg) Malnutrition Assessment: Does not meet criteria Nutrition Focused Physical Assessment: Loss of Subcutaneous Fat: Yes; Severity: Moderate; Location: Orbital Muscle Wasting: Yes; Severity: Mild; Location: Spiritism, Interosseous Edema: Yes; Severity: Mild; Location: Generalized, [...] Within 48 hours Status: Ongoing Natalee MALAGON, CHRISTIANO, LD Available on Voalte Office: [phone] * Kaylyn Zarate OT - 04/28/2023 1:50 [...] stone in R ureter and transferred to [facility] 04/22 for Urology consult. On arrival to [...] Comment: Ramped entrance. Prior Function Level Of Jerauld: Independent with ADLs and functional transfers;Independent with homemaking w/ ambulation Lives With: Spouse Receives Help From: None Needed Other Function Comments: Enjoys spending time with family and grandchildren. 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 She is typically extremely active and "on the go." Vision: functional vision with adls today and tracking all directions ADL's: 04/28/23 Sitting up in bed Feeding: minimal assist Grooming: moderate assist UE Dressing: moderate assist LE Dressing: Total assist Bathing: moderate assist Toileting Assist: Total Assist Toileting Deficits: (+benson; per notes benson to remain until f/u [...] improve with therapy in rehab/SNF setting. Therapist: TEDDY Sanford/Umair [id number] Date: 04/28/2023 * Hussain Slaughter MD - [...] w/ a R ureter obstructive stone. Transferred [facility] for further care. Upon arrival to she [...] Noted poor bladder emptying Plan -Urology consulted -Anaspman, Flomax -Maintain Benson through discharge, urology outpatient follow-up for consideration of trial of voiding NSTEMI, Type 2 Hx HTN - Trop peaked at 2610. Suspect demand in the setting of septic shock -Restart LOAN SERVICING REPRESENTATIVE Losartanat reduced dose 25mg daily ([id number] daily LOAN SERVICING REPRESENTATIVE) Afib w/ RVR (new onset) Acute on [...] morphology Plan - Cardiology re-consulted - Continue [id number] BID - Continue therapeutic lovenox - Obtain [...] Select the Device:: Wound Assessment Non-blanchable;Red 04/28/23 0800 Ning-wound Assessment Intact 04/28/23 08 Wound Drainage [...] orprocedures, Referring and communication with other health rn patient care (when not separately reported), Documenting clinical information in the electronic or other health record and Care coordination (not separately reported) Hussain Slaughter MD Internal Medicine, Hospitalist Voalte is the preferred method of communication. Please use the [employer] First Call for all patient-related communications. [...] Enteral Feeding Volume Based Infusion Stopped (04/26/23 9195) PRN and Respiratory Meds:acetaminophen Q4H PRN, albuterol-ipratropium Q4H PRN, dextrose 50% (D50) IV PRN, fimwjr-ytezyfqqs-rhg,al-simeth Q3H PRN, hyoscyamine Q4H PRN, loperamide (IMODIUM) oral solution PRN, pancrelipase 20,880 Units/sodium bicarbonate 650 mg (KU CLOG DESTROYER) PRN (Police Booking Officer from [employer]), phenoL PRN Review of Systems: Positive for lip lesions/pain. Negative for fevers, chills, MEYERS, vision changes, light-headedness, dizziness, chest pain, dyspnea, cough, abdominal pain, nausea, vomiting, constipation, diarrhea, dysuria, skin changes. Objective: Vital Signs: Last Filed Vital Signs: 24 Hour Range BP: 94/59 (04/28 1106) Temp: 37.8 C (100.1 F) (04/28 0745) Pulse: 96 (04/28 1123) Respirations: 16 PER MINUTE (04/28 745) SpO2: 92 % (04/28 110) O2 Device: None (Room air) (04/28 1106) O2 Liter Flow: 1 Lpm (04/28 745) BP: (94-127)/(39-66) Temp: [37 C (98.6 F)-37.8 [...] (Last 24 hours) Glucose: (!) 109 (04/28/23 0580) POC Glucose (Download): 96 (04/28/23 5289) Radiology and other Diagnostics Review: Pertinent radiology reviewed. Hussain Slaughter MD * Natalee Estes, JOBY - 04/28/2023 12:16 PM CDT CLINICAL NUTRITION Clinical Nutrition Follow-Up Assessment Name: Silke Hansen : 1945 Age: 77 y.o. Admission Date: 04/22/2023 LOS: 6 days Date of Service: 04/28/2023 Recommendation: Continue Regular diet Encourage small frequent meals with 1-2 protein sources Recommend consuming ~2 Boost/day Recommend utilizing beneprotein packets to add to foods Recommend consuming soft protein foods like italian yogurt, cottage cheese and eggs Comments: Silke [...] pt enjoyed. RD also ordered pt strawberry italian yogurt and cottage cheese for ptto trial. [...] Current Oral Intake: Inadequate;Improving Estimated Calorie Needs: 5966-9777 (25-27 kcals/kg DBW, aka MSJ x 1.3-1.4 AF) Estimated Protein Needs: 76-96 (1.2-1.5 gm/kg per DBW 63.7 kg) Malnutrition Assessment: Evaluation pending Nutrition Focused Physical Assessment: Loss of Subcutaneous Fat: Yes; Severity: Moderate; Location: Orbital Muscle Wasting: Yes; Severity: Mild; Location: Spiritism, Interosseous Edema: Yes; Severity: Mild; Location: Lower [...] Time Frame: Within 48 hours Natalee MALAGON, CHRISTIANO, LD Available on [employer] Office: [phone] * Stacie Palomares PTA - 04/28/2023 9:21 [...] stone in R ureter and transferred to [facility] 04/22 for Urology consult. On arrival to [...] off pressors but increasingly altered w/ increased [id number]. Taken to OR early 04/23 for cystoscopy [...] - Intubated for OR, extubated 04/23 - [id number] Plan - Wean oxygen as able for [...] in the setting of septic shock -Restart LOAN SERVICING REPRESENTATIVE Losartanat reduced dose 25mg daily (zpllt00th daily LOAN SERVICING REPRESENTATIVE) Afib w/ RVR (new onset) LBBB - EKG on arrival to : ST w/ LBBB - Went into afib w/ RVR early 04/24, rates into 130s --> given 5mg metop w/ slight improvement in rate, but remained in fib - Diltiazem gtt initiated for rate control; weaned off 04/24 at ~2300 Plan - Cardiology consult - Continue [id number] BID - Continue therapeutic lovenox (started AM [...] abx) Hussain Snyder MD Hospitalist, Internal Medicine [facility] W- [phone] To contact, Voalte (preferred) the First Call for the [employer] team listed or page the team pager [phone]. This note was prepared in part using [employer] Dict[employer], please excuse any typographical/dictation errors [...] was near her home, most likely an [place], [place]. However on my discussion with her [...] Yes Moderate Orbital Muscle Wasting: Yes Mild Spiritism, Interosseous Edema: Yes Mild Lower extremities Active Wounds: * Sinan Bowman, RT - 04/27/2023 6:34 AM CDT RT [...] Breath Sounds: Respiratory Effort: * Yanni Coe APRN-WENDY - 04/26/2023 3:32 PM CDT General Progress [...] off since extubation 04/23 Plan - Restart LOAN SERVICING REPRESENTATIVE Losartan at reduced dose 25mg daily (takes 50mg daily LOAN SERVICING REPRESENTATIVE) Afib w/ RVR (new onset) LBBB - EKG on arrival to : ST w/ LBBB - Went into afib w/ RVR early 04/24, rates into 130s --> given 5mg metop w/ slight improvement in rate, but remained in fib - Diltiazem gtt initiated for rate control; weaned off 04/24 at ~2300 Plan - Cardiology consult - Continue [id number] BID - Continue therapeutic lovenox (started AM [...] nurse will assess her eating. Will need hospice plan administrator eval if nurse concerned for aspiration but [...] requires placement will likely be in the [place], [place] area MARIANNE Cook, ORIGINATION SPECIALIST-C [phone] Total time spent was greater than 50 [...] bicarbonate 650 mg ([facility] CLOG DESTROYER) PRN (Police Booking Officer from [employer]), phenoL PRN Objective Vital Signs: [...] Review: Pertinent radiology reviewed. JAVON Haddad Pager [phone] * Marleny Combs RN - 04/26/2023 2:15 [...] 1230: Report given to BRADLEY Castaneda on 46. Pt to transfer to [facility]. 1400: Pt transferred to [facility] on bed via hydraulic technician. Pt stable on transfer off unit. * Rickie Castro RN - 04/26/2023 7:42 AM CDT 1929: Received report from off going RNDanielle. Bedside safety check completed. Plan of care and orders reviewed. 1999: Assessment completed, see doc flowsheets for details. VSS, per trends. Safety precautions inplace. Niece at bedside given pt phone and will take home. [phone] approximately: Pt flipped into SVT with HR [...] report to Marleny HUERTA. * Desiree Ross APRN-NP - 04/26/2023 7:28 AM CDT Critical Care [...] stone in R ureter and transferred to [facility] 04/22 for Urology consult. On arrival to [...] - Currently SBP 100-120's PLAN - Restart LOAN SERVICING REPRESENTATIVE Losartan at reduced dose 25mg daily (takes 50mg daily LOAN SERVICING REPRESENTATIVE) Afib w/ RVR (new onset) LBBB - [...] Dr. Joni Ross APRN-WENDY Pulmonary/Critical Care Pager [phone] 04/26/2023 team pager [phone] __ Subjective: Silke Hansen is a 77 [...] bicarbonate 650 mg ([facility] CLOG DESTROYER) PRN (Police Booking Officer from [employer]), phenoL PRN Vital Signs: Last [...] 2 Lpm Vitals: 04/24/23 1004 04/25/23 0413 04/26/23413 Weight: 80.3 kg (177 lb) 76.6 kg [...] -- -- -- -- 6.4* Recent Labs 04/24/23 0337 04/25/231 04/26/23216 WBC 35.6* 22.7* 13.8* HGB 11.2* 11.7* 11.7* HCT 33.9* 34.6* 35.5* PLTCT 184 215 248 AST 31 29 24 ALT 35 38 31 ALKPHOS 55 44 53 Estimated Creatinine Clearance: 64.4 mL/min (based on SCr of 0.62 mg/dL). Vitals: 04/24/23 1004 04/25/23 0413 04/26/23 0414 [...] stone in R ureter and transferred to [facility] 04/22 for Urology consult. On arrival to [...] Comment: Ramped entrance. Prior Function Level Of Jerauld: Independent with ADLs and functional transfers;Independent with homemaking w/ ambulation Lives With: Spouse Receives Help From: None Needed Other Function Comments: Enjoys spending time with family and grandchildren. 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 She is [...] rec- limited by lethargy and AMS. Therapist: TEDDY Batista/Umair [id number] Date: 04/25/2023 * Elda Burroughs PT - [...] stone in R ureter and transferred to [facility] 04/22 for Urology consult. On arrival to [...] Castro RN - 04/25/2023 7:54 AM CDT 1929: Received report from off going Barbara HUERTA. Bedside safety check completed. Plan of care [...] stone in R ureter and transferred to [facility] 04/22 for Urology consult. On arrival to [...] lovenox (started AM 04/24) HTN - Holding LOAN SERVICING REPRESENTATIVE Losartan 50mg daily GI: Diarrhea - Cleared for regular diet, but placed Corpak w/ drowsiness 04/24 - Continue TF via Corpak - Last BM 04/24 - multiple episodes diarrhea - C [...] floor Pt seen & discussed w/ Dr. Saide Lombardi APRN Pulm/Critical Care Available on [employer]te Pager [phone] 04/25/2023 M2 team pager (2nd call/nights) [phone] ATTESTATION I personally interviewed and examined the [...] Feeding Volume Based Infusion 45 mL/hr at 04/25/23 0400 dilTIAZem (cardIZEM) 125 mg in sodium chloride 0.9% (NS) 125 mL IV drip (std conc) Stopped (04/24/23 2245) PRN and Respiratory Meds:albuterol-ipratropium Q4H PRN, hyoscyamine Q4H PRN, pancrelipase 20,880 Units/sodium bicarbonate 650 mg ([facility] CLOG DESTROYER) PRN (Police Booking Officer from [employer]), phenoL PRN Vital Signs: Last Filed Vital Signs: 24 Hour Range BP: 119/65 (04/25 400) Temp: 36.6 C (97.9 F) (04/25 400) Pulse: 98 (04/25 400) Respirations: 29 PER MINUTE (04/25 400) SpO2: 96 % (04/25 400) O2 Device: High flow nasal cannula (04/25 400) O2 Liter Flow: 5 Lpm (10/13 0400) Height: 160 cm (5' 3") (04/24 1004) BP: (99-146)/(55-113) Temp: [36.4 C (97.5 F)-37.1 [...] 1840 04/23/23 0346 04/24/23 0337 04/24/23 1225 04/25/23 0211 NA 140 144 144 [...] 2.5 2.3 2.1 -- 1.9* Recent Labs 04/22/23 1840 04/23/23 0346 04/24/23 0337 04/25/23 0211 WBC 36.7* 33.3* 35.6* [...] independent of the time spent by the DIE TESTER) providing and personally directing critical care services including: - systems review and physical examination - review of hemodynamic, respiratory, telemetry, laboratory, and imaging data - review of medications - management of fluids/electrolytes, antibiotics, sepsis protocol, gas exchange/NIPPV, diuresis, ICU prophylaxis, and ICU core measures - organization and coordination of care plan with the DIE TESTER and consultants - directing the formulation of [...] One Level;Ramped Entrance Prior Function Level Of Jerauld: Independent with ADLs and functional transfers;Independent with homemaking w/ ambulation (Without use of assistive device) Lives With: Spouse () 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 Therapist: TEDDY Boo/Umair [id number] Date: 04/24/2023 * Barbara Melendez RN - [...] HR ranging 95-110 on Diltiazem gtt; see 1899: BSSC with BRADLEY Damian * Hussain Colvin [...] Davis RN - 04/24/2023 7:03 AM CDT 1900: Beside safety check completed with RN. No concerns at this time. 2000: Initial assessment completed. Pt a&o x4, following [...] pt trend. No changes from initial assessment. 1366-2502: Pt sustaining Afib RVR, asymptomatic. Brian Vogel [...] stone in R ureter and transferred to [facility] 04/22 for Urology consult. On arrival to [...] lovenox (started AM 04/24) HTN - Holding LOAN SERVICING REPRESENTATIVE Losartan 50mg daily GI: - Cleared for [...] APRN Pulm/Critical Care Available on [employer]te Pager [phone] 04/24/2023 M2 team pager (2nd call/nights) [phone] __ Subjective: Silke Hansen is a 77 [...] bicarbonate 650 mg ([facility] CLOG DESTROYER) PRN (Police Booking Officer from [employer]), phenoL PRN Vital Signs: Last [...] Per protocol Laboratory: LABS: Recent Labs 04/22/23 18404/23/2334504/24/23 0337 04/24/23 1225 NA 140 144 144 [...] 2.3 2.1 -- Recent Labs 04/22/23 1840 04/23/2334504/24/23 0337 WBC 36.7* 33.3* 35.6* HGB 11.8* 10.7* [...] and treat as appropriate. Marisol Casey OTR/L [id number] * Briana Noel MD - 04/23/2023 1:40 [...] independent of the time spent by the DIE TESTER) providing and personally directing critical care services including: - systems review and physical examination - review of hemodynamic, respiratory, telemetry, laboratory, and imaging data - review of medications - management of fluids/electrolytes, antibiotics, sepsis protocol, gas exchange/NIPPV, diuresis, ICU prophylaxis, and ICU core measures - organization and coordination of care plan with the DIE TESTER and consultants - directing the formulation of [...] Yip RN - 04/23/2023 10:47 AM CDT 2533-5898: Assumed care for pt at this time, [...] at this time. 2000: Initial assessment completed. DIE TESTER, Brian Vogel present at bedside. Pt oriented [...] given to oncoming RN. * Gabriela Lombardi, BUSINESS SUPPORT ADMINISTRATOR-DIE TESTER - 04/23/2023 5:58 AM CDT Pulmonary / [...] stone in R ureter and transferred to [facility] 04/22 for Urology consult. On arrival to [...] - Trend trop q4hrs HTN - Holding LOAN SERVICING REPRESENTATIVE Losartan 50mg daily with shock GI: - Will start TF if unable to extubate - Last BM LOAN SERVICING REPRESENTATIVE - Daily CMP RENAL: - Baseline Cr [...] APRN Pulm/Critical Care Available on [employer] Pager [phone] 04/23/2023 M2 team pager (2nd call/nights) [phone] __ Subjective: Silke Hansen is a 77 y.o. female who is intubated and sedated on MV. ROS: unable to obtain d/ t pt factors Objective: Medications: Scheduled Meds:chlorhexidine gluconate (PERIDEX) 0.12 % solution 15 mL, 15 mL, SEE ADMIN INSTRUCTIONS, BID(8-20) [SEP Hold] enoxaparin (LOVENOX) syringe 40 mg, 40 mg, Subcutaneous, QDAY(21) petrolatum (STYE) ophthalmic ointment 0.25 inch, 0.25 inch, Both Eyes, Q6H piperacillin/tazobactam (ZOSYN) 4.5 g in sodium chloride 0.9% (NS) 100 mL IVPB (MB+)(EXTENDED INFUSION), 4.5 g, Intravenous, Q6H* vancomycin (VANCOCIN) 1,000 mg in dextrose 5% (D5W) 250 mL IVPB (Dief3Nxj), 1,000 mg, Intravenous, Q12H* Continuous Infusions: dexMEDEtomidine (PRECEDEX) 400 mcg/NS 100 ml IV drip (premade) Stopped (04/23/23417) fentaNYL (SUBLIMAZE) 1000 mcg/100 mL NS IV drip (std conc)(premade) propofoL (DIPRIVAN) 10 mg/mL IV drip PRN and Respiratory Meds:[Sep] albuterol-ipratropium Q4H PRN, fentaNYL (SUBLIMAZE) IV drip [...] CPAP/BiPAP O2 Liter Flow: 12 Lpm Vitals: 04/22/23 1751 04/23/23 0400 Weight: 81.1 [...] LABS: Recent Labs 04/22/23 1840 04/23/23 0346 NA 140 144 K 4.3 4.1 CL 112* 112* CO2 18* 20* GAP 10 12 BUN 21 24 CR 0.77 0.79 GLU 133* 150* CA 8.4* 8.0* ALBUMIN 3.6 3.2* MG 2.8* 2.5 PO4 2.5 2.3 Recent Labs 04/22/23 1840 04/23/23 0346 WBC 36.7* 33.3* HGB 11.8* 10.7* HCT [...] Natalee Sanchez MD Urology Resident * Radha Serrano PHARMD - 04/22/2023 8:47 PM CDT Pharmacy [...] in dextrose 5% (D5W) 250 mL IVPB (Zins3Ufy) 1,000 mg Intravenous Q12H* vancomycin (VANCOCIN) in [...] mL/min Intake/Output Summary (Last 24 hours) at 04/22/20232046 Last data filed at 04/22/2023 1900 Gross per 24 hour Intake 0 ml Output 185 ml Net -185 ml Actual Weight: 81.1 kg (178 lb 12.7 oz) Dosing BW: 81.1 kg Radha Serrano PHARMD 04/22/2023 * Nadine Beebe RN - 04/22/2023 7:25 PM CDT 1750: Pt arrived to 6507 at this time. Pt transported from [facility] to MICU bed and attached to monitors. VSS. Physical assessment complete at this time, please see ICU flowsheet for details. Labs drawn. Pt oriented to room and plan of care. Family updated on care. Will continue to monitor. 1844: Benson catheter replaced at this time per [...] She is accepted in transfer from [facility] after admission there on 04/21/23 with fever [...] (unknown baseline), lactate 2.4, troponin pending, NT-Pro-BNP 29354, procal 30, UA consistent with infection (3+LE, [...] independent of the time spent by the DIE TESTER) providing and personally directing critical care services including: - systems review and physical examination - review of hemodynamic, respiratory, telemetry, laboratory, and imaging data - review of medications - management of fluids/electrolytes, antibiotics, sepsis protocol, gas exchange/NIPPV, diuresis, ICU prophylaxis, and ICU core measures - organization and coordination of care plan with the DIE TESTER and consultants - directing the formulation of the overall plan of care outlined above Kate De La Cruz 2067 documented in this encounter H&P Notes * Brian Franco, BUSINESS SUPPORT ADMINISTRATOR-DIE TESTER - 04/22/2023 6:54 PM CDT / Critical [...] ASA EC 500mg q8hrs PLAN - Hold LOAN SERVICING REPRESENTATIVE ASA PULM Acute Hypoxic Respiratory Failure Bilateral Pleural Effusions DDx pneumonia vs pleural effusions vs COVID - On 2LNC on arrival to [facility] 04/20 - On 4LNC and increased [...] HR 105, LA 2.4 - EKG at [facility] w/ LBBB: Cardiology consulted at [facility] d/t Type septic shock recs ASA and lovenox - 04/21 Echo at [facility]: EF 50%, Paradoxical septal motion noted, AV leaflet thickening and trivial regurg. MV trivial regurg. TV w/ mild regurg. PV trivial regurg.PASP 30-35mmHg PLAN - Goal Map > 65, SBP > 90 - Trend trop q4hrs HTN - LOAN SERVICING REPRESENTATIVE Losartan 50mg daily PLAN - Hold LOAN SERVICING REPRESENTATIVE Losartan GI - AST 47, ALT 35, ALP 47, Tbili 0.7 - Last BM LOAN SERVICING REPRESENTATIVE PLAN - NPO w/ plan for poss urology intervention in AM RENAL - Baseline Cr unknown - At OSH: Cr 0.75-1, BUN 14, CO2 17 - On admit at [facility]: Cr 0.77, BUN 21, CO2 18 PLAN - Monitor I/O - Replace benson for cultures - Daily Chemistries ENDO - No reported hx DM - At [facility] SB PLAN - Monitor BGS on daily chemistry ID UTI Pneumonia Bacteremia - On admit to OSH WBC 5.6, Temp 104F -> 04/22 WBC 39.5 - Initially started on Zosyn 04/20 and changed to Ceftriaxone 1g/day on 04/21 - On admit to : WBC 36.7, Temp 36.4C - MRSA nasal swab, C-Diff negative at [facility] - UA at [facility]: +1 Leuks, positive w/ c/f Klebsiella and Enterobacter - 04/20 [facility] BCx w/ GNRs - Procal 30.8 PLAN: - Start Zosyn 4.5g q6hrs and Vanc 1250mg, pharmacy to manage vanc - Send Blood cx from peripheral stick and L PICC, Sputum cx, Urine cx, MRSA pna screen, RVP - Request culture results from [facility] HEME - Hgb 11.8, plt 157 PLAN [...] Jono ALEJANDRO Pulmonary/Critical Care M2 Team Pager [phone] ATTESTATION An BUSINESS SUPPORT ADMINISTRATOR [place] participated in the care of this [...] initially to an urgent care clinic in [facility] 04/20 d/t RLQ pain and chills x1 day. She was prescribed Bactrim and Zofran, but did not fill the prescription. Her clinical status deteriorated the same day and was taken to [facility] 04/20 and found to be tachycardic [...] an obstructive stone in her R ureter. [facility] was contacted for transfer d/t lack of [...] Signs: 24 Hour Range BP: 152/83 (04/23 0200) Temp: 36.9 C (98.5 F) (04/23 0000) Pulse: 112 (04/23 0215) Respirations: 20 PER MINUTE (04/23 0215) SpO2: 88 % (04/23 215) O2 Percent: [...] Not applicable Active Wounds Laboratory: Recent Labs 04/22/231839 NA 140 K 4.3 CL 112* CO2 18* GAP 10 BUN 21 CR 0.77 GLU 133* CA 8.4* ALBUMIN 3.6 MG 2.8* PO4 2.5 Recent Labs 04/22/231839 WBC 36.7* HGB 11.8* HCT 35.6* PLTCT 157 PT 15.1* INR 1.4* PTT 39.3* AST 47* ALT 35 ALKPHOS 47 Estimated Creatinine Clearance: 59.8 mL/min (based on SCr of 0.77 mg/dL). Vitals: 04/22/23 1751 Weight: 81.1 kg (178 lb 12.7 oz) [...] the E/M visit, discussed case with MICU DIE TESTER, and concur with documentation of history, physical [...] improving. Natalee MALAGON, JOBYN, LD Available on [employer] Office: [phone] * Barbara Diana APRN-WENDY - 04/28/2023 11:14 [...] She does not follow with a primary cavalry officer in her hometown of [place], [place]. Assessment: Newly discovered paroxysmal atrial fibrillation [...] in sinus, 130s-160s when in atrial fibrillation -[id number] score of 5 (2 points for age, one point for gender, one point for LV dysfunction, one point for hypertension) -therapeutic Lovenox started 04/24 Acute on chronic systolic HFrEF, (new) EF: 30% NYHA Class III, ACC Stage C Major Complications [place] Comor[place]ities [place] [place] acute/ acute on chronic systolic and/or diastolic [...] Output 600 ml Net -120 ml GDMT LOAN SERVICING REPRESENTATIVE Changes BB None Metoprolol tartrate 50mg BID [...] admission showing LBBB Hypertension -primary team restarted LOAN SERVICING REPRESENTATIVE Losartanat reduced dose 25mg daily ([id number] daily LOAN SERVICING REPRESENTATIVE) -blood pressures stable, but soft 90s-100s/50s-60s Acute hypoxic respiratory failure Bilateral pleural effusions -pneumonia vs. Pleural effusions -no baseline O2 -- On admit to MICU requiring 8L NC - CXR: RLL infiltrates and bilateral pleural effusions - NT-pro-BNP 11,158 - Intubated for OR, extubated 04/23 - [id number] Bladder stones, right uretal stone Elevated BMI: [...] cardiology; if she does not have a cavalry officer at home she can follow-up with myself [...] changes to above plan. Babita Diana, DNP, BUSINESS SUPPORT ADMINISTRATOR, ORIGINATION SPECIALIST-C Cardiology Consult Service Available on [employer] and [facility] Cardiac testing and imaging CXR: 04/28/23 Improved [...] is no prior study available for comparison color television console monitor: sinus tachycardia, rates 90s Stress tests: 04/29 [...] Q4H PRN, dextrose 50% (D50) IV PRN, jpickg-vpkiyjtdk-emk,al-simeth Q3H PRN, hyoscyamine Q4H PRN, loperamide (IMODIUM) oral solution PRN, pancrelipase 20,880 Units/sodium bicarbonate 650 mg ([facility] CLOG DESTROYER) PRN (Police Booking Officer from Rx), phenoL PRN Allergies Allergies Allergen Reactions Codeine UNKNOWN Reported in OSH records Past Medical History Medical History: Diagnosis Date Hypertension Past Surgical History Surgical History: Procedure Laterality Date CYSTOURETHROSCOPY WITH INDWELLING URETERAL STENT INSERTION Right 04/23/2023 Performed by Jerald Lindquist MD at [facility] OR CYSTOURETHROSCOPY WITH URETERAL CATHETERIZATION WITH/ WITHOUT IRRIGATION/ INSTILLATION/ URETEROPYELOGRAPHY Right 04/23/2023 Performed by Jerald Lindquist MD at [facility] OR RETROGRADE UROGRAPHY WITH/ WITHOUT KUB Right 04/23/2023 Performed by Jerald Lindquist MD at [facility] OR Social History Social History Socioeconomic History [...] 1106) O2 Liter Flow: 1 Lpm (04/28 745) BP: (94-127)/(39-66) Temp: [37 C (98.6 F)-37.8 [...] treatment plan as outlined by the Cardiology BUSINESS SUPPORT ADMINISTRATOR, Babita Diana. Pleasant 77-year-old female was admitted [...] with questions or concerns. Derrek Barrett MD, [facility] Department of Cardiovascular Medicine [facility] * Juana Van, RD - 04/24/2023 [...] stone in R ureter and transferred to [facility] 04/22 for Urology consult. On arrival to [...] Current Oral Intake: Inadequate Estimated Calorie Needs: 7667-3667 (25-27 kcals/kg DBW, aka MSJ x 1.3-1.4 AF) Estimated Protein Needs: 76-96 (1.2-1.5 gm/kg per DBW 63.7 kg) Malnutrition Assessment: Evaluation pending Nutrition Focused Physical Assessment: Loss of Subcutaneous Fat: Yes; Severity: Moderate; Location: Orbital Muscle Wasting: Yes; Severity: Mild; Location: Spiritism, Interosseous Edema: Yes; Severity: Mild; Location: Lower [...] Van MS, RD, LD, CNSC Available on [employer] Office [phone] * Pierre Zabala MD - 04/24/2023 9:57 [...] with rapid ventricular rate #Hypertension First episode [id number] score 4 In the settings of sepsis LOAN SERVICING REPRESENTATIVE losartan 50 mg daily #UTI secondary to [...] to the plan. After 5PM please call paper hanger social professionals. Friday - Friday 8AM-5PM please call Cardiology consult pager. TUSHAR Clemens Eligibility Manager Department of Cardiovascular Medicine Cardiology Attending Staff [...] initially to an urgent care clinic in [place] on 04/20/2023 due to right lower quadrant pain with chills for 1 day. She was prescribed Bactrim and Zofran but did not feel the prescription. Her clinical status deteriorated the same day and was taken to the [facility] on 04/20/2023 and found to bein tachycardic in 120s with a temperature of 104. She was hypotensive and her lactate was elevatedaround 6. She was given fluids and started on broad-spectrum antibiotic with norepinephrine and some vasopressors for septic shock due to UTI and pneumonia. CT abdomen showed patient has obstructive stone in her right ureter with some hydronephrosis. [facility] was continued to transfer the due to [...] Attending Surgeon: Ameena Consult Performed by: Natalee Snachez MD ASSESSMENT: 77 y.o. female with a [...] Sanchez MD Urology PGY-3 Please page Urology social professionals with any questions __ HPI: Silke Hansen is a 77 y.o. female with a history of HTN who is currently admitted to the [facility] urosepsis secondary to 9mm R ureteral stone. History is limited secondary to patient's current status and no family available). Majority of history was obtained through chart review. Patient presented to outside urgent care clinic on 04/20 with reports of right lower quadrant pain and was prescribed an antibiotic for suspected urinary tract infection. Later that day she had clinical decompensation and presented to [facility] later in the day on 04/20. She [...] in dextrose 5% (D5W) 250 mL IVPB ([id number]), 1,000 mg, Intravenous, Q12H* Continuous Infusions: dexMEDEtomidine (PRECEDEX) 400 mcg/NS 100 ml IV drip (premade) 0.3 mcg/kg/hr (04/23/23224) PRN and Respiratory Meds:albuterol-ipratropium Q4H PRN, [COMPLETED] vancomycin (VANCOCIN) IVPB ONCEAND vancomycin, pharmacy to manage Per Pharmacy Allergies: Codeine No family history on file. Vitals: Vital Signs: Last Filed In 24 Hours Vital Signs: 24 Hour Range BP: 152/83 (04/23 0200) Temp: 36.9 C (98.5 F) (04/23 0000) Pulse: 112 (04/23 215) Respirations: 20 PER MINUTE (04/23 215) SpO2: 88 % (04/23 215) O2 Percent: 40 % (04/23 215) O2 Device: CPAP/BiPAP (04/23 215) O2 Liter Flow: 12 Lpm (04/23 0200) Height: 160 cm (5' 3") (04/22 175) [...] ill with UTI and stone Transferred to [facility] for additional management and admitted through the [...] discussed the case with the resident, PA, POWER EQUIPMENT MECHANICS INSTRUCTOR and/or student, and concur with documentation of history, physical examination, assessment, and treatment plan unless otherwise noted. Jerald Lindquist MD, MPH documented in this encounter Nursing Notes * Yanni Coe APRN-NP - 04/26/2023 11:48 AM CDT Pt will be transferred to [place] [address]. Please page [phone] or voalte for handoff. documented in this [...] draped in the usual sterile fashion. A 22-Japanese scope and 30-degree lens was inserted in [...] No specimens in log * Attestation: Dr Lnidquist was present for the entire procedure. Complications: None Implants: Right 6 x 26 cm Percuflex ureteral stent without strings Drains: 16 Fr silicon catheter with balloon inflated to 10 cc Disposition: ICU - stable Jonathan Fine MD Pager [phone] ATTESTATION: SINGLE SURGICAL PROCEDURE PERFORMED WITH THE ASSISTANCE OF RESIDENT SURGEONS OUTLINED I personally saw and evaluated the patient and determined the plan of care. I personally performedthe dick portions of the E&M visit, discussed the case with the resident, PA, POWER EQUIPMENT MECHANICS INSTRUCTOR and/or student, and concur with documentation of [...] stone in R ureter and transferred to [facility] 04/22 for Urology consult. 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 losartan at reduced dose 25mg daily (takes 50mg daily LOAN SERVICING REPRESENTATIVE) - Diuresis PRN - goal net even [...] Desiree Ross APRN Pulm/Critical Care Available on Voalte Pager [phone] * Care Plan - Marleny Combs RN [...] until 04/22/2023 documented as of this encounter Procedures Procedure [...] CDT HC CBC W/ AUTOMATED DIFF Routine 2:11 AM CDT HC COMPREHENSIVE METABOLIC PANEL [...] CDT HC CBC W/ AUTOMATED DIFF Routine 10/10/2 023 6:40 PM CDT HC PHOSPHOROUS, SERUM [...] - 100 MG/DL 05/01/2023 12:24 PM CDT [facility] 05/01/2023 12:0 7 PM CDT 05/01/2023 12:24 PM CDT Hussain Slaughter MD OTHER LABORATORY [facility] DEPT PATH AND LAB MEDICINE POC [address] [place] [address] * (ABNORMAL) POC GLUCOSE (05/01/2023 8:22 AM CDT) Glucose, POC 132(H) 70 - 100 MG/DL 05/01/2023 8:44 AM CDT [facility] 05/01/2023 8:2 2 AM CDT 05/01/2023 8:44 AM CDT Hussain Slaughter MD OTHER LABORATORY [facility] [address] [place] [address] * PHOSPHORUS (05/01/2023 5:31 AM CDT) Phosphorus 3.3 2.0 - 4.5 MG/DL 05/01/2023 7:00 AM CDT [facility] DEPT PATH AND LAB MEDICINE BLOOD / Unknown 05/01/2023 5:31 AM CDT 05/01/2023 5:32 AM CDT Hussain Slaughter MD LABORATORY ORDERAB LES Performing Organization Address City/[facility]/ZIP Co de Phone Number [facility] [address] * (ABNORMAL) COMPREHENSIVE METABOLIC PANEL (05/01/2023 5:31 AM CDT) Sodium 143 137 - 147 MMOL/L 05/01/2023 7:00 AM CDT [facility] DE[facility] PATH AND LAB MEDICINE Potassium 4.8 3.5 - 5.1 MMOL/L 05/01/2023 7:00 AM CDT [facility] DEPT PATH AND LAB MEDICINE Comment:SLT HEMOLYSIS Chloride 116(H) 98 - 110 MMOL/L 05/01/2023 7:00 AM CDT [facility] DEPT PATH AND LAB MEDICINE Glucose 93 70 - 100 MG/DL 05/01/2023 7:00 AM CDT [facility] DE[facility] PATH AND LAB MEDICINE Blood Urea Nitrogen 14 7 - 25 MG/DL 05/01/2023 7:00 AM CDT [facility] DEPT PATH AND LAB MEDICINE Creatinine 0.76 0.4 - 1.00 MG/DL 05/01/2023 7:00 AM CDT [facility] PATH AND LAB MEDICINE Calcium 8.0(L) 8.5 - 10.6 MG/DL 05/01/2023 7:00 AM CDT [facility] PATH AND LAB MEDICINE Total Protein 6.0 6.0 - 8.0 G/DL 05/01/2023 7:00 AM CDT [facility] PATH AND LAB MEDICINE Total Bilirubin 0.5 0.3 - 1.2 MG/DL 05/01/2023 7:00 AM CDT [facility] PATH AND LAB MEDICINE Albumin 2.6(L) 3.5 - 5.0 G/DL 05/01/2023 7:00 AM CDT [facility] PATH AND LAB MEDICINE Alk Phosphatase 29 25 - 110 U/L 05/01/2023 7:00 AM CDT [facility] PATH AND LAB MEDICINE AST (SGOT) 39 7 - 40 U/L 05/01/2023 7:00 AM CDT [facility] CO2 15(L) 21 - 30 MMOL/L 05/01/2023 7:00 AM CDT [facility] DEPT PATH AND LAB MEDICINE ALT (SGPT) 34 7 - 56 U/L 05/01/2023 7:00 AM CDT [facility] Anion Gap 12 3 - 12 05/01/2023 7:00 AM CDT [facility] DEPT PATH AND LAB MEDICINE eGFR >60 >60 mL/min 05/01/2023 7:00 AM CDT [facility] Comment:eGFR calculated nicolás g the CKD-EPIcr_R equation BLOOD / Unknown 05/01/2023 5:31 AM CDT 05/01/2023 5:32 AM CDT Hussain Slaughter MD LABORATORY ORDERAB LES [facility] [address] [place] [address], [place] * (ABNORMAL) CBC AND DIFF (05/01/2023 5:31 AM CDT) White Blood Cells 9.8 4.5 - 11.0 K/UL 05/01/2023 6:43 AM CDT [facility] RBC 3.89(L) 4.0 - 5.0 M/UL 05/01/2023 6:43 AM CDT [facility] DEPT PATH AND LAB MEDICINE Hemoglobin 11.3(L) [...] - 0.80 K/UL 05/01/2023 6:43 AM CDT [facility] DEPT PATH AND LAB MEDICINE Absolute Eosinophil Count 0.23 0 - 0.45 K/UL 05/01/2023 6:43 AM CDT [facility] DEPT PATH AND LAB MEDICINE Absolute Basophil Count 0.02 0 - 0.20 K/UL 05/01/2023 6:43 AM CDT [facility] DEPT PATH AND LAB MEDICINE BLOOD / Unknown 05/01/2023 5:31 AM CDT 05/01/2023 5:32 AM CDT Hussain Slaughter MD LABORATORY ORDERAB LES [facility] [address] [place] [address], * MAGNESIUM CELLULAR THERAPEUTICS (05/01/2023 5:31 AM CDT) Magnesium 2.3 1.6 - 2.6 mg/dL 05/01/2023 7:00 AM CDT [facility] DEPT PATH AND LAB MEDICINE Comment:SLT HEMOLYSIS BLOOD / Unknown 05/01/2023 5:31 AM CDT 05/01/2023 5:32 AM CDT Brian Vogel BUSINESS SUPPORT ADMINISTRATOR-DIE TESTER LABORATORY ORDERABLE S Performing Organization Address City/[facility]/ZIP Co de Phone Number [facility] [address] [place] [address], [place] * POC GLUCOSE (04/30/2023 11:04 PM CDT) Glucose, POC 97 70 - 100 MG/DL 04/30/2023 11:05 PM CDT [facility] DEPT PATH AND LAB MEDICINE POC 04/30/2023 11:0 4 PM CDT 04/30/2023 11:05 PM CDT Hussain Slaughter MD OTHER LABORATORY [facility] P[facility] [address] [place] [address] * (ABNORMAL) POC GLUCOSE (04/30/2023 5:02 PM CDT) Glucose, POC 107(H) 70 - 100 MG/DL 04/30/2023 5:03 PM CDT [facility]IC[facility] POC 04/30/2023 5:0 2 PM CDT 04/30/2023 5:03 PM CDT Hussain Slaughter MD OTHER LABORATORY [facility] P[facility] [address] [place] [address] * COVID-19 (SARS-COV-2) PCR (04/30/2023 2:21 PM CDT) COVID-19 (SARS-CoV-2) PCR Source FLOCKED SWAB NASOPHARYNG EAL 04/30/2023 2:21 PM CDT [facility] COVID-19 (SARS-CoV-2) PCR NOT DETECTED DN-NOT DETECTED 04/30/2023 3:35 PM CDT [facility] Comment: This assay [...] performance characteristics have been verified by the [facility] clinical laboratory. Fact sheet for providers: https://www.fda.gov/media/604276/download Fact sheet for patients: https://www.fda.gov/media/714266/download Flocked Swab NASOPHARYNGEAL STRUCTURE / Unknown 04/30/2023 2:21 PM CDT 04/30/2023 2:28 PM CDT Hussain Slaughter MD MICROBIOLOGY ORDER KRYSTIN Performing Organization Address [facility] Co de Phone Number [facility] PATH AND LAB MEDICINE [address] [place] [address], * (ABNORMAL) POC GLUCOSE (04/30/2023 11:12 AM CDT) Glucose, POC 170(H) 70 - 100 MG/DL 04/30/2023 11:13 AM CDT [facility] PATH AND LAB MEDICINE POC 04/30/2023 11:1 2 AM CDT 04/30/2023 11:13 AM CDT Hussain Slaughter MD OTHER LABORATORY Performing Organization Address [facility] de Phone Number [facility] PATH AND LAB MEDICINE POC [address] [place] [address] * (ABNORMAL) POC GLUCOSE (04/30/2023 8:22 AM CDT) Glucose, POC 140(H) 70 - 100 MG/DL 04/30/2023 8:23 AM CDT [facility]IC[facility] POC 04/30/2023 8:2 2 AM CDT 04/30/2023 8:23 AM CDT Hussain Slaughter MD OTHER LABORATORY Performing Organization Address [facility] de Phone Number [facility] PATH AND LAB MEDICINE POC [address] [place] [address] * PHOSPHORUS (04/30/2023 4:55 AM CDT) Phosphorus 3.1 2.0 - 4.5 MG/DL 04/30/2023 5:40 AM CDT [facility] BLOOD / Unknown 04/30/2023 4:55 AM CDT 04/30/2023 4:56 AM CDT Hussain Slaughter MD LABORATORY ORDERAB LES Performing Organization Address City/[facility]/ZIP Co de Phone Number [facility] DEPT PATH AND LAB MEDICINE [address] [place] [address], [place] * (ABNORMAL) COMPREHENSIVE METABOLIC PANEL (04/30/2023 4:55 AM CDT) Sodium 140 137 - 147 MMOL/L 04/30/2023 5:40 AM CDT [facility] DEPT PATH AND LAB MEDICINE Potassium 3.7 3.5 - 5.1 MMOL/L 04/30/2023 5:40 AM CDT [facility] DE[facility] PATH AND LAB MEDICINE Chloride 108 98 - 110 MMOL/L 04/30/2023 5:40 AM CDT [facility] PATH AND LAB MEDICINE Glucose 116(H) 70 - 100 MG/DL 04/30/2023 5:40 AM CDT [facility] PATH AND LAB MEDICINE Blood Urea Nitrogen 16 7 - 25 MG/DL 04/30/2023 5:40 AM CDT [facility] PATH AND LAB MEDICINE Creatinine 0.57 0.4 - 1.00 MG/DL 04/30/2023 5:40 AM CDT [facility] PATH AND LAB MEDICINE Calcium 8.0(L) 8.5 - 10.6 MG/DL 04/30/2023 5:40 AM CDT [facility] DEPT PATH AND LAB MEDICINE Total Protein 5.5(L) 6.0 - 8.0 G/DL 04/30/2023 5:40 AM CDT [facility] DEPT PATH AND LAB MEDICINE Total Bilirubin 0.6 0.3 - 1.2 MG/DL 04/30/2023 5:40 AM CDT [facility] PATH AND LAB MEDICINE Albumin 2.8(L) 3.5 - 5.0 G/DL 04/30/2023 5:40 AM CDT [facility] DE[facility] PATH AND LAB [...] CDT Hussain Slaughter MD LABORATORY ORDERAB LES [facility] DEPT PATH AND LAB MEDICINE [address] [place] [address], [place] * (ABNORMAL) CBC AND DIFF (04/30/2023 [...] - 400 K/UL 04/30/2023 5:18 AM CDT [facility] PATH AND LAB MEDICINE MPV 8.1 [...] - 5 % 04/30/2023 5:18 AM CDT [facility] PATH AND LAB MEDICINE Basophils 0 0 - 2 % 04/30/2023 5:18 AM CDT [facility] PATH AND LAB MEDICINE Absolute Neutrophil Count 9.15(H) 1.8 - 7.0 K/UL 04/30/2023 5:18 AM CDT [facility] DEPT PATH AND LAB MEDICINE Absolute Lymph Count 1.61 1.0 - 4.8 K/UL 04/30/2023 5:18 AM CDT [facility] DEPT PATH AND LAB MEDICINE Absolute Monocyte Count 0.87(H) 0 - 0.80 K/UL 04/30/2023 5:18 AM CDT [facility] DEPT PATH AND LAB MEDICINE Absolute Eosinophil Count 0.38 0 - 0.45 K/UL 04/30/2023 5:18 AM CDT [facility] DEPT PATH AND LAB MEDICINE Absolute Basophil Count 0.05 0 - 0.20 K/UL 04/30/2023 5:18 AM CDT [facility] DEPT PATH AND LAB MEDICINE BLOOD / Unknown 04/30/2023 4:55 AM CDT 04/30/2023 4:56 AM CDT Hussain Slaughter MD LABORATORY ORDERAB LES [facility] [address] [place] [address], [place] * MAGNESIUM CELLULAR THERAPEUTICS (04/30/2023 4:55 AM CDT) Magnesium 2.1 1.6 - 2.6 mg/dL 04/30/2023 5:40 AM CDT [facility] BLOOD / Unknown 04/30/2023 4:55 AM CDT 04/30/2023 4:56 AM CDT Brian Vogel BUSINESS SUPPORT ADMINISTRATOR-DIE TESTER LABORATORY ORDERABLE S [facility] PATH AND LAB MEDICINE [address] * (ABNORMAL) POC GLUCOSE (04/29/2023 9:32 PM CDT) Glucose, POC 102(H) 70 - 100 MG/DL 04/29/2023 9:33 PM CDT [facility] PATH AND LAB MEDICINE POC 04/29/2023 9:3 2 PM CDT 04/29/2023 9:33 PM CDT Hussain Slaughter MD OTHER LABORATORY Performing Organization Address City/[facility]/ZIP Co de Phone Number [facility] PATH AND LAB MEDICINE POC [address] [place] [address] * (ABNORMAL) POC GLUCOSE (04/29/2023 4:44 PM CDT) Glucose, POC 126(H) 70 - 100 MG/DL 04/29/2023 4:46 PM CDT [facility] PATH AND LAB MEDICINE POC 04/29/2023 4:4 4 PM CDT 04/29/2023 4:46 PM CDT Hussain Slaughter MD OTHER LABORATORY [facility] PATH AND LAB MEDICINE POC [address] [place] [address] * (ABNORMAL) POC GLUCOSE (04/29/2023 12:01 PM CDT) Glucose, POC 128(H) 70 - 100 MG/DL 04/29/2023 12:03 PM CDT [facility] POC 04/29/2023 12:0 1 PM CDT 04/29/2023 12:03 PM CDT Hussain Slaughter MD OTHER LABORATORY Performing Organization Address City/[facility]/ZIP Co de Phone Number [facility] PATH AND LAB MEDICINE POC [address] [place] [address] * (ABNORMAL) POC GLUCOSE (04/29/2023 8:56 AM CDT) [facility] Signature Glucose, POC 108(H) 70 - 100 MG/DL 04/29/2023 8:58 AM CDT [facility]IC[facility] POC 04/29/2023 8:5 6 AM CDT 04/29/2023 8:58 AM CDT Hussain Slaughter MD OTHER LABORATORY Performing Organization Address [facility] de Phone Number [facility] PATH AND LAB MEDICINE POC [address] [place] [address] * NM STRESS ECG (04/29/2023 8:55 AM [...] Basim Holman on 04/29/2023 9:01 AM. Barbara Se Diana BUSINESS SUPPORT ADMINISTRATOR-DIE TESTER NUC MED ORDERABLE S * NM PET [...] lung stevenson. Thoracic spondylosis. Procedure Note Victoriano Coel MD - 04/29/2023 LOW DOSE/HIGH DOSE REST/STRESS [...] Holman on 04/29/2023 9:01 AM. Barbara Diana BUSINESS SUPPORT ADMINISTRATOR-DIE TESTER NUC MED ORDERABLE S * NM PET/CT [...] lobe consolidation, likely atelectasis. Finalized by Victoriano oCle M.D. on 04/29/2023 9:39 AM. Dictated by Basim Holman on 04/29/2023 9:01 AM. Barbara Diana BUSINESS SUPPORT ADMINISTRATOR-DIE TESTER NUC MED ORDERABLE S * (ABNORMAL) LIPID [...] AM CDT 04/29/2023 4:54 AM CDT Brian Mina Jaspreet BUSINESS SUPPORT ADMINISTRATOR-DIE TESTER LABORATORY ORDERABLE S [facility] [address] [place] [address], * PHOSPHORUS (04/29/2023 4:53 AM CDT) Phosphorus 3.4 2.0 - 4.5 MG/DL 04/29/2023 5:46 AM CDT [facility] DE[facility] PATH AND LAB MEDICINE BLOOD / Unknown 04/29/2023 4:53 AM CDT 04/29/2023 4:54 AM CDT Hussain Slaughter MD LABORATORY ORDERAB LES [facility] [address] [place] [address], * (ABNORMAL) COMPREHENSIVE METABOLIC PANEL (04/29/2023 4:53 [...] - 1.2 MG/DL 04/29/2023 5:46 AM CDT [facility] DEPT PATH AND LAB MEDICINE Albumin 2.9(L) 3.5 - 5.0 G/DL 04/29/2023 5:46 AM CDT [facility] DEPT PATH AND LAB MEDICINE Alk Phosphatase 32 25 - 110 U/L 04/29/2023 5:46 AM CDT [facility] DEPT PATH AND LAB MEDICINE AST (SGOT) 35 7 - 40 U/L 04/29/2023 5:46 AM CDT [facility] PATH AND LAB MEDICINE CO2 30 21 - 30 MMOL/L 04/29/2023 5:46 AM CDT [facility] DEPT PATH AND LAB MEDICINE ALT (SGPT) 35 7 - 56 U/L 04/29/2023 5:46 AM CDT [facility] PATH AND LAB MEDICINE Anion Gap 9 3 - 12 04/29/2023 5:46 AM CDT [facility] DEPT PATH AND LAB MEDICINE eGFR >60 >60 mL/min 04/29/2023 5:46 AM CDT [facility] DEPT PATH AND LAB MEDICINE Comment:eGFR calculated nicolás ryder the CKD-EPIcr_R equation BLOOD / Unknown 04/29/2023 4:53 AM CDT 04/29/2023 4:54 AM CDT Hussain Slaughter MD LABORATORY ORDERAB LES [facility] DEPT PATH AND LAB MEDICINE [address] [place] [address], [place] * (ABNORMAL) CBC AND DIFF (04/29/2023 4:53 AM CDT) White Blood Cells 13.4(H) 4.5 - 11.0 K/UL 04/29/2023 5:20 AM CDT [facility] DEPT PATH AND LAB MEDICINE RBC 3.99(L) 4.0 - 5.0 M/UL 04/29/2023 5:20 AM CDT [facility] DEPT PATH AND LAB MEDICINE Hemoglobin 11.6(L) [...] - 11 FL 04/29/2023 5:20 AM CDT [facility] DEPT [...] - 0.80 K/UL 04/29/2023 5:20 AM CDT [facility] DEPT PATH AND LAB MEDICINE Absolute Eosinophil Count 0.35 0 - 0.45 K/UL 04/29/2023 5:20 AM CDT [facility] Absolute Basophil Count 0.03 0 - 0.20 K/UL 04/29/2023 5:20 AM CDT [facility] BLOOD / Unknown 04/29/2023 4:53 AM CDT 04/29/2023 4:54 AM CDT Hussain Slaughter MD LABORATORY ORDERAB LES Performing Organization Address City/[facility]/ZIP Co de Phone Number [facility] PATH AND LAB MEDICINE [address] [place] [address], * MAGNESIUM CELLULAR THERAPEUTICS (04/29/2023 4:53 AM CDT) Magnesium 2.0 1.6 - 2.6 mg/dL 04/29/2023 5:46 AM CDT [facility] BLOOD / Unknown 04/29/2023 4:53 AM CDT 04/29/2023 4:54 AM CDT Brian Vogel BUSINESS SUPPORT ADMINISTRATOR-DIE TESTER LABORATORY ORDERABLE S Performing Organization Address City/[facility]/ZIP Co de Phone Number [facility] PATH AND LAB MEDICINE [address] [place] [address], * POC GLUCOSE (04/29/2023 3:42 AM CDT) Glucose, POC 100 70 - 100 MG/DL 04/29/2023 3:43 AM CDT [facility] PATH AND LAB MEDICINE POC 04/29/2023 3:4 2 AM CDT 04/29/2023 3:43 AM CDT Hussain Slaughter MD OTHER LABORATORY [facility] DEPT PATH AND LAB MEDICINE POC [address] [place] [address] * (ABNORMAL) POC GLUCOSE (04/28/2023 8:54 PM CDT) Glucose, POC 117(H) 70 - 100 MG/DL 04/28/2023 8:56 PM CDT [facility] PATH AND LAB MEDICINE POC 04/28/2023 8:5 4 PM CDT 04/28/2023 8:56 PM CDT Hussain Slaughter MD OTHER LABORATORY Performing Organization Address City/[facility]/ZIP Co de Phone Number [facility] PATH AND LAB MEDICINE POC [address] [place] [address] * POC GLUCOSE (04/28/2023 3:40 PM CDT) Glucose, POC 97 70 - 100 MG/DL 04/28/2023 3:41 PM CDT [facility] PATH AND LAB MEDICINE POC 04/28/2023 3:4 0 PM CDT 04/28/2023 3:41 PM CDT Hussain Slaughter MD OTHER LABORATORY Performing Organization Address City/[facility]/ZIP Co de Phone Number [facility] PATH AND LAB MEDICINE POC [address] [place] [address] * [place] DOPPLER VENOUS LEFT (04/28/2023 3:10 [...] (ABNORMAL) POC GLUCOSE (04/28/2023 12:34 PM CDT) [facility] Signature Glucose, POC 196(H) 70 - 100 MG/DL 04/28/2023 12:35 PM CDT [facility] POC 04/28/2023 12:3 4 PM CDT 04/28/2023 12:35 PM CDT Hussain Slaughter MD OTHER LABORATORY [facility] DEPT PATH AND LAB MEDICINE POC [address] [place] [address] * POC GLUCOSE (04/28/2023 7:48 AM CDT) Glucose, POC 96 70 - 100 MG/DL 04/28/2023 7:50 AM CDT [facility] POC 04/28/2023 7:4 8 AM CDT 04/28/2023 7:50 AM CDT Hussain Slaughter MD OTHER LABORATORY Performing Organization Address City/[facility]/ZIP Co de Phone Number [facility] POC [address] [place] [address] * (ABNORMAL) NT-PRO-BNP (04/28/2023 5:44 AM CDT) NT-Pro-BNP 7,917.0(H) <450 pg/mL 04/28/2023 12:32 PM CDT [facility] Comment: NOTE: Normal reference ranges for NT-proBNP vary by age: <125 pg/mL for individuals < 75 years old <450 pg/mL for individuals =/> 75 years old 04/28/2023 5:4 4 AM CDT 04/28/2023 5:45 AM CDT Brian Vogel BUSINESS SUPPORT ADMINISTRATOR-DIE TESTER LABORATORY ORDERABLE S Performing Organization Address [facility] Co de Phone Number [facility] [address] [place] [address], * PHOSPHORUS (04/28/2023 5:44 AM CDT) Phosphorus 3.8 2.0 - 4.5 MG/DL 04/28/2023 8:49 AM CDT [facility] 04/28/2023 5:4 4 AM CDT 04/28/2023 5:45 AM CDT Brian Fanry BUSINESS SUPPORT ADMINISTRATOR-DIE TESTER LABORATORY ORDERABLE S [facility] [address] [place] [address], [place] * (ABNORMAL) COMPREHENSIVE METABOLIC PANEL (04/28/2023 5:44 AM CDT) Sodium 143 137 - 147 MMOL/L 04/28/2023 6:31 AM CDT [facility] DEPT [...] >60 >60 mL/min 04/28/2023 6:31 AM CDT [facility] DEPT PATH AND LAB MEDICINE Comment:eGFR calculated nicolás ryder the CKD-EPIcr_R equation BLOOD / Unknown 04/28/2023 5:44 AM CDT 04/28/2023 5:45 AM CDT Gabriela Lombardi BUSINESS SUPPORT ADMINISTRATOR-DIE TESTER LABORATORY ORDERABLES [facility] DEPT PATH AND LAB MEDICINE [address] [place] [address], * (ABNORMAL) CBC AND DIFF (04/28/2023 5:44 AM CDT) White Blood Cells 11.8(H) 4.5 - 11.0 K/UL 04/28/2023 6:00 AM CDT [facility] DEPT PATH AND LAB MEDICINE RBC 4.21 4.0 - 5.0 M/UL 04/28/2023 6:00 AM CDT [facility] DEPT PATH AND LAB MEDICINE Hemoglobin 12.1 12.0 - 15.0 GM/DL 04/28/2023 6:00 AM CDT [facility] DEPT PATH AND LAB MEDICINE Hematocrit 36.3 36 - 45 % 04/28/2023 6:00 AM CDT [facility] DEPT PATH AND LAB MEDICINE MCV 86.3 80 - 100 FL 04/28/2023 6:00 AM CDT [facility] DEPT PATH AND LAB MEDICINE MCH 28.8 26 - 34 PG 04/28/2023 6:00 AM CDT [facility] DEPT PATH AND LAB MEDICINE MCHC 33.4 32.0 - 36.0 G/DL 04/28/2023 6:00 AM CDT [facility] DEPT PATH AND LAB MEDICINE RDW 14.1 11 - 15 % 04/28/2023 6:00 AM CDT [facility] DEPT PATH [...] - 2 % 04/28/2023 8:22 AM CDT [facility] PATH AND LAB MEDICINE Absolute Neutrophil Count 9.08(H) 1.8 - 7.0 K/UL 04/28/2023 8:22 AM CDT [facility] DE[facility] PATH AND LAB MEDICINE Absolute Lymph Count 1.65 1.0 - 4.8 K/UL 04/28/2023 8:22 AM CDT [facility] DEPT PATH AND LAB MEDICINE Absolute Monocyte Count 0.77 0 - 0.80 K/UL 04/28/2023 8:22 AM CDT [facility] DE[facility] PATH AND LAB MEDICINE Absolute Eosinophil Count 0.32 0 - 0.45 K/UL 04/28/2023 8:22 AM CDT [facility] DE[facility] PATH AND LAB MEDICINE Absolute Basophil Count 0.02 0 - 0.20 K/UL 04/28/2023 8:22 AM CDT [facility] DEPT PATH AND LAB MEDICINE BLOOD / Unknown 04/28/2023 5:44 AM CDT 04/28/2023 5:45 AM CDT Gabriela Lombardi BUSINESS SUPPORT ADMINISTRATOR-DIE TESTER LABORATORY ORDERABLES [facility] DEPT PATH AND LAB MEDICINE [address] [place] [address], * MAGNESIUM CELLULAR THERAPEUTICS (04/28/2023 5:44 AM CDT) Magnesium 1.9 1.6 - 2.6 mg/dL 04/28/2023 6:31 AM CDT [facility] DEPT PATH AND LAB MEDICINE BLOOD / Unknown 04/28/2023 5:44 AM CDT 04/28/2023 5:45 AM CDT Brian Vogel BUSINESS SUPPORT ADMINISTRATOR-DIE TESTER LABORATORY ORDERABLE [facility] [address] [place] [address], * (ABNORMAL) POC GLUCOSE (04/28/2023 4:53 AM CDT) Glucose, POC 132(H) 70 - 100 MG/DL 04/28/2023 4:55 AM CDT [facility] LAB MEDICINE POC 04/28/2023 4:5 3 AM CDT 04/28/2023 4:55 AM CDT Hussain Snyder MD OTHER LABORATORY Performing Organization Address City/[facility]/ZIP Co de Phone Number [facility] POC [address] [place] [address] * (ABNORMAL) POC GLUCOSE (04/28/2023 12:28 AM CDT) Glucose, POC 124(H) 70 - 100 MG/DL 04/28/2023 12:40 AM CDT [facility] P[facility] 04/28/2023 12:2 8 AM CDT 04/28/2023 12:40 AM CDT Hussain Snyder MD OTHER LABORATORY Performing Organization Address City/[facility]/ZIP Co de Phone Number [facility] [address] [place] [address] * (ABNORMAL) POC GLUCOSE (04/27/2023 8:32 PM CDT) Glucose, POC 127(H) 70 - 100 MG/DL 04/27/2023 8:33 PM CDT [facility] PATH [facility] LAB MEDICINE POC 04/27/2023 8:3 2 PM CDT 04/27/2023 8:33 PM CDT Hussain Snyder MD OTHER LABORATORY Performing Organization Address City/[facility]/ZIP Co de Phone Number [facility] PATH AND LAB MEDICINE POC [address] [place] [address] * (ABNORMAL) POC GLUCOSE (04/27/2023 5:18 PM CDT) Glucose, POC 109(H) 70 - 100 MG/DL 04/27/2023 5:19 PM CDT [facility] P[facility] 04/27/2023 5:1 8 PM CDT 04/27/2023 5:19 PM CDT Hussain Snyder MD OTHER LABORATORY Performing Organization Address [facility] Co de Phone Number [facility] PATH AND LAB MEDICINE POC [address] [place] [address] * (ABNORMAL) POC GLUCOSE (04/27/2023 12:38 PM CDT) Glucose, POC 135(H) 70 - 100 MG/DL 04/27/2023 12:39 PM CDT [facility] 04/27/2023 12:3 8 PM CDT 04/27/2023 12:39 PM CDT Hussain Snyder MD OTHER LABORATORY Performing Organization Address City/[facility]/ZIP Co de Phone Number [facility] PATH AND LAB MEDICINE POC [address] [place] [address] * (ABNORMAL) POC GLUCOSE (04/27/2023 9:03 AM CDT) Glucose, POC 124(H) 70 - 100 MG/DL 04/27/2023 9:05 AM CDT [facility] 04/27/2023 9:0 3 AM CDT 04/27/2023 9:05 AM CDT Hussain Snyder MD OTHER LABORATORY [facility] DEPT PATH AND LAB MEDICINE POC [address] [place] [address] * (ABNORMAL) COMPREHENSIVE METABOLIC PANEL (04/27/2023 5:02 AM CDT) Sodium 145 137 - 147 MMOL/L 04/27/2023 6:01 AM CDT [facility] PATH [facility] LAB MEDICINE Potassium 3.6 3.5 - 5.1 MMOL/L 04/27/2023 6:01 AM CDT [facility] DEPT PATH AND LAB MEDICINE Chloride 102 98 - 110 MMOL/L 04/27/2023 6:01 AM CDT [facility] DEPT PATH AND LAB MEDICINE Glucose 117(H) 70 - 100 MG/DL 04/27/2023 6:01 AM CDT [facility] DEPT PATH AND LAB MEDICINE Blood Urea Nitrogen 22 7 - 25 MG/DL 04/27/2023 6:01 AM CDT [facility] DEPT PATH AND LAB MEDICINE Creatinine 0.56 0.4 - 1.00 MG/DL 04/27/2023 6:01 AM CDT [facility] DEPT PATH AND LAB MEDICINE Calcium 8.5 8.5 - 10.6 MG/DL 04/27/2023 6:01 AM CDT [facility] DEPT PATH AND LAB MEDICINE Total Protein 5.6(L) 6.0 - 8.0 G/DL 04/27/2023 6:01 AM CDT [facility] DEPT PATH AND LAB MEDICINE Total Bilirubin 0.7 0.3 - 1.2 MG/DL 04/27/2023 6:01 AM CDT [facility] DEPT PATH AND LAB MEDICINE Albumin 3.0(L) 3.5 - 5.0 G/DL 04/27/2023 6:01 AM CDT [facility] DEPT PATH AND LAB MEDICINE Alk Phosphatase 39 25 - 110 U/L 04/27/2023 6:01 AM CDT [facility] DEPT PATH AND LAB MEDICINE AST (SGOT) 26 7 - 40 U/L 04/27/2023 6:01 AM CDT [facility] DEPT PATH AND LAB MEDICINE CO2 36(H) 21 - 30 MMOL/L 04/27/2023 6:01 AM CDT [facility] DEPT PATH AND LAB MEDICINE ALT (SGPT) 30 7 - 56 U/L 04/27/2023 6:01 AM CDT [facility] PATH [facility] LAB MEDICINE Anion Gap 7 3 - 12 04/27/2023 6:01 AM CDT [facility] DEPT PATH AND LAB MEDICINE eGFR >60 >60 mL/min 04/27/2023 6:01 AM CDT [facility] DEPT PATH AND LAB MEDICINE Comment:eGFR calculated nicolás g the CKD-EPIcr_R equation BLOOD / Unknown 04/27/2023 5:02 AM CDT 04/27/2023 5:03 AM CDT Gabriela Lombardi BUSINESS SUPPORT ADMINISTRATOR-DIE TESTER LABORATORY ORDERABLES [facility] [address] [place] [address], [place] * (ABNORMAL) CBC AND DIFF (04/27/2023 5:02 AM CDT) White Blood Cells 14.2(H) 4.5 - 11.0 K/UL 04/27/2023 5:35 AM CDT [facility] DEPT PATH AND LAB MEDICINE RBC 4.19 4.0 - 5.0 M/UL 04/27/2023 5:35 AM CDT [facility] DEPT PATH AND LAB MEDICINE Hemoglobin 12.1 12.0 - 15.0 GM/DL 04/27/2023 5:35 AM CDT [facility] DEPT PATH AND LAB MEDICINE Hematocrit 36.2 36 - 45 % 04/27/2023 5:35 AM CDT [facility] DEPT PATH AND LAB MEDICINE MCV 86.5 80 - 100 FL 04/27/2023 5:35 AM CDT [facility] PATH AND LAB MEDICINE MCH 28.9 26 - 34 PG 04/27/2023 5:35 AM CDT [facility] DEPT PATH AND LAB MEDICINE MCHC 33.4 32.0 - 36.0 G/DL 04/27/2023 5:35 AM CDT [facility] DEPT PATH AND LAB MEDICINE RDW 14.1 11 - 15 % 04/27/2023 5:35 AM CDT [facility] PATH AND LAB [...] - 0.20 K/UL 04/27/2023 8:43 AM CDT [facility] DEPT PATH AND LAB MEDICINE BLOOD / Unknown 04/27/2023 5:02 AM CDT 04/27/2023 5:03 AM CDT Gabriela Lombardi BUSINESS SUPPORT ADMINISTRATOR-DIE TESTER LABORATORY ORDERABLES [facility] [address] [place] [address], * PHOSPHORUS CELLULAR THERAPEUTICS (04/27/2023 5:02 AM CDT) Phosphorus 2.7 2.0 - 4.5 MG/DL 04/27/2023 6:01 AM CDT [facility] BLOOD / Unknown 04/27/2023 5:02 AM CDT 04/27/2023 5:03 AM CDT Brian Vogel BUSINESS SUPPORT ADMINISTRATOR-DIE TESTER LABORATORY ORDERABLE S [facility] [address] [place] [address], * MAGNESIUM CELLULAR THERAPEUTICS (04/27/2023 5:02 AM CDT) Magnesium 1.9 1.6 - 2.6 mg/dL 04/27/2023 6:01 AM CDT [facility] BLOOD / Unknown 04/27/2023 5:02 AM CDT 04/27/2023 5:03 AM CDT Brian Vogel APRN-DIE TESTER LABORATORY ORDERABLE S Performing Organization Address City/[facility]/ZIP Co de Phone Number [facility] [address] [place] [address], * (ABNORMAL) POC GLUCOSE (04/27/2023 4:53 AM CDT) Glucose, POC 116(H) 70 - 100 MG/DL 04/27/2023 4:55 AM CDT [facility]IC[facility] POC 04/27/2023 4:5 3 AM CDT 04/27/2023 4:55 AM CDT Hussain Jorge DO OTHER LABORATORY [facility] P[facility] [address] [place] [address] * POC GLUCOSE (04/27/2023 12:42 AM CDT) Glucose, POC 100 70 - 100 MG/DL 04/27/2023 12:51 AM CDT [facility] DEPT PATH AND LAB MEDICINE POC 04/27/2023 12:4 2 AM CDT 04/27/2023 12:51 AM CDT Hussain Jorge DO OTHER LABORATORY Performing Organization Address City/[facility]/ZIP Co de Phone Number [facility] P[facility] [address] [place] [address] * (ABNORMAL) POC GLUCOSE (04/26/2023 9:14 PM CDT) Glucose, POC 144(H) 70 - 100 MG/DL 04/26/2023 9:16 PM CDT [facility] DEPT PATH AND LAB MEDICINE POC 04/26/2023 9:1 4 PM CDT 04/26/2023 9:15 PM CDT Hussain Jorge DO OTHER LABORATORY Performing Organization Address City/[facility] Co de Phone Number [facility] P[facility] [address] [place] [address] * (ABNORMAL) POC GLUCOSE (04/26/2023 8:23 PM CDT) Glucose, POC 149(H) 70 - 100 MG/DL 04/26/2023 8:25 PM CDT [facility] DEPT PATH AND LAB MEDICINE POC 04/26/2023 8:2 3 PM CDT 04/26/2023 8:25 PM CDT Hussain Jorge DO OTHER LABORATORY Performing Organization Address City/[facility]/ZIP Co de Phone Number [facility] POC [address] [place] [address] * (ABNORMAL) POC GLUCOSE (04/26/2023 11:54 AM CDT) Glucose, POC 188(H) 70 - 100 MG/DL 04/26/2023 3:33 PM CDT [facility] PATH AND LAB MEDICINE POC 04/26/2023 11:5 4 AM CDT 04/26/2023 3:33 PM CDT Hussain Jorge DO OTHER LABORATORY [facility] [address] [place] [address] * (ABNORMAL) POC GLUCOSE (04/26/2023 9:18 AM CDT) Glucose, POC 194(H) 70 - 100 MG/DL 04/26/2023 9:26 AM CDT [facility] DEPT PATH AND LAB MEDICINE POC 04/26/2023 9:1 8 AM CDT 04/26/2023 9:26 AM CDT Rasta Quinones MD OTHER LABORATORY Performing Organization Address City/[facility] Co de Phone Number [facility] P[facility] [address] [place] [address] * (ABNORMAL) BLOOD GASES, PERIPHERAL VENOUS (04/26/2023 9:13 AM CDT) pH-Venous 7.41(H) 7.30 - 7.40 04/26/2023 9:33 AM CDT [facility] PATH [facility] LAB MEDICINE PCO2-Venous 53(H) 36 - 50 MMHG 04/26/2023 9:33 AM CDT [facility] DEPT PATH AND LAB MEDICINE PO2-Venous 42 33 - 48 MMHG 04/26/2023 9:33 AM CDT [facility] PATH AND LAB MEDICINE Base Excess-Venous 6.8 MMOL/L 04/26/2023 9:33 AM CDT [facility] PATH [facility] LAB MEDICINE O2 Sat-Venous 75.4(H) 55 - 71 % 04/26/2023 9:33 AM CDT [facility] PATH [facility] LAB MEDICINE Bicarbonate-VE N-Shahab 30.1 MMOL/L 04/26/2023 9:33 AM CDT [facility] DEPT PATH AND LAB MEDICINE BLOOD / Unknown 04/26/2023 9:13 AM CDT 04/26/2023 9:31 AM CDT Desiree ALEJANDRO OTHER LABORATOR Y Performing Organization Address [facility]/ZIP Co de Phone Number [facility] [address] [place] [address], * (ABNORMAL) AMMONIA (04/26/2023 9:13 AM CDT) Ammonia 46(H) 9 - 35 MCMOL/L 04/26/2023 9:53 AM CDT [facility] PATH AND LAB MEDICINE BLOOD / Unknown 04/26/2023 9:13 AM CDT 04/26/2023 9:31 AM CDT Desiree ALEJANDRO LABORATORY ORDE RABLES Performing Organization Address City/[facility] Co de Phone Number [facility] [address] [place] [address], * (ABNORMAL) POC GLUCOSE (04/26/2023 4:12 AM CDT) Glucose, POC 177(H) 70 - 100 MG/DL 04/26/2023 4:13 AM CDT [facility] DEPT PATH AND LAB MEDICINE POC 04/26/2023 4:1 2 AM CDT 04/26/2023 4:13 AM CDT Briana Noel MD OTHER LABORATORY Performing Organization Address City/[facility]/ZIP Co de Phone Number [facility] P[facility] [address] [place] [address] * (ABNORMAL) COMPREHENSIVE METABOLIC PANEL (04/26/2023 2:17 AM CDT) Sodium 146 137 - 147 MMOL/L 04/26/2023 3:23 AM CDT [facility] PATH [facility] LAB MEDICINE Potassium 4.0 3.5 - 5.1 MMOL/L 04/26/2023 3:23 AM CDT [facility] PATH AND LAB MEDICINE Chloride 109 98 - 110 MMOL/L 04/26/2023 3:23 AM CDT [facility] PATH AND LAB MEDICINE Glucose 150(H) 70 - 100 MG/DL 04/26/2023 3:23 AM CDT [facility] DEPT PATH AND LAB MEDICINE Blood Urea Nitrogen 33(H) 7 - 25 MG/DL 04/26/2023 3:23 AM CDT [facility] DEPT PATH AND LAB MEDICINE Creatinine 0.62 0.4 - 1.00 MG/DL 04/26/2023 3:23 AM CDT [facility] DEPT PATH AND LAB MEDICINE Calcium 8.6 8.5 - 10.6 MG/DL 04/26/2023 3:23 AM CDT [facility] DEPT PATH AND LAB MEDICINE Total Protein 5.7(L) 6.0 - 8.0 G/DL 04/26/2023 3:23 AM CDT [facility] DEPT PATH AND LAB MEDICINE Total Bilirubin 0.5 0.3 - 1.2 MG/DL 04/26/2023 3:23 AM CDT [facility] DEPT PATH AND LAB MEDICINE Albumin 3.3(L) 3.5 - 5.0 G/DL 04/26/2023 3:23 AM CDT [facility] DEPT PATH AND LAB MEDICINE Alk Phosphatase 53 25 - 110 U/L 04/26/2023 3:23 AM CDT [facility] DEPT PATH AND LAB MEDICINE AST (SGOT) 24 7 - 40 U/L 04/26/2023 3:23 AM CDT [facility] DEPT PATH AND LAB MEDICINE CO2 29 21 - 30 MMOL/L 04/26/2023 3:23 AM CDT [facility] DEPT PATH AND LAB MEDICINE ALT (SGPT) 31 7 - 56 U/L 04/26/2023 3:23 AM CDT [facility] DEPT PATH AND LAB MEDICINE Anion Gap 8 3 - 12 04/26/2023 3:23 AM CDT [facility] DEPT PATH AND LAB MEDICINE eGFR >60 >60 mL/min 04/26/2023 3:23 AM CDT [facility] DEPT PATH AND LAB MEDICINE Comment:eGFR calculated nicolás ryder the CKD-EPIcr_R equation BLOOD / Unknown 04/26/2023 2:17 AM CDT 04/26/2023 2:33 AM CDT Gabriela Lombardi APRN-DIE TESTER LABORATORY ORDERABLES [facility] PATH AND LAB MEDICINE [address] [place] [address], * (ABNORMAL) CBC AND DIFF (04/26/2023 2:17 AM CDT) [facility] White Blood Cells 13.8(H) 4.5 - 11.0 [...] - 5 % 04/26/2023 3:41 AM CDT [facility] DEPT PATH AND LAB MEDICINE Basophils 0 0 - 2 % 04/26/2023 3:41 AM CDT [facility] DEPT PATH AND LAB MEDICINE Absolute Neutrophil Count 11.40(H) 1.8 - 7.0 K/UL 04/26/2023 3:41 AM CDT [facility] DEPT PATH AND LAB MEDICINE Absolute Lymph Count 1.10 1.0 - 4.8 K/UL 04/26/2023 3:41 AM CDT [facility] DEPT PATH AND LAB MEDICINE Absolute Monocyte Count 1.21(H) 0 - 0.80 K/UL 04/26/2023 3:41 AM CDT [facility] DEPT PATH AND LAB MEDICINE Absolute Eosinophil Count 0.10 0 - 0.45 K/UL 04/26/2023 3:41 AM CDT [facility] DEPT PATH AND LAB MEDICINE Absolute Basophil Count 0.02 0 - 0.20 K/UL 04/26/2023 3:41 AM CDT [facility] DEPT PATH AND LAB MEDICINE BLOOD / Unknown 04/26/2023 2:17 AM CDT 04/26/2023 2:33 AM CDT Gabriela Lombardi BUSINESS SUPPORT ADMINISTRATOR-DIE TESTER LABORATORY ORDERABLES Performing Organization Address [facility]/State/[facility] Co de Phone Number [facility] [address] [place] [address], * (ABNORMAL) PHOSPHORUS CELLULAR THERAPEUTICS (04/26/2023 2:17 AM CDT) Phosphorus 1.4(LL) 2.0 - 4.5 MG/DL 04/26/2023 3:23 AM CDT [facility] DEPT PATH AND LAB MEDICINE Comment: CRITICAL VALUE CALLED TO AND READ BACK BY/TIME/TECH BRADLEY DIAZ at 04/26/2023 03:22:50 by [id number] BLOOD / Unknown 04/26/2023 2:17 AM CDT 04/26/2023 2:33 AM CDT Brian Vogel BUSINESS SUPPORT ADMINISTRATOR-DIE TESTER LABORATORY ORDERABLE S Performing Organization Address City/[facility]/ZIP Co de Phone Number [facility] [address] [place] [address], * MAGNESIUM CELLULAR THERAPEUTICS (04/26/2023 2:17 AM CDT) Magnesium 2.1 1.6 - 2.6 mg/dL 04/26/2023 3:23 AM CDT [facility] BLOOD / Unknown 04/26/2023 2:17 AM CDT 04/26/2023 2:33 AM CDT Brian Vogel BUSINESS SUPPORT ADMINISTRATOR-DIE TESTER LABORATORY ORDERABLE S Performing Organization Address [facility] Co de Phone Number [facility] [address] [place] [address], * (ABNORMAL) HEMOGLOBIN A1C (04/26/2023 2:17 AM CDT) Hemoglobin A1C 6.4(H) 4.0 - 5.7 % 04/26/2023 6:25 AM CDT [facility] Comment: The ADA recommends that most patients with type 1 and type 2 diabetes maintain an A1c level <7%. BLOOD / Unknown 04/26/2023 2:17 AM CDT 04/26/2023 2:33 AM CDT Gabriela Lombardi BUSINESS SUPPORT ADMINISTRATOR-DIE TESTER LABORATORY ORDERABLES Performing Organization Address City/[facility]/ZIP Co de Phone Number [facility] [address] [place] [address], * (ABNORMAL) POC GLUCOSE (04/25/2023 11:54 PM CDT) Glucose, POC 195(H) 70 - 100 MG/DL 04/25/2023 11:56 PM CDT [facility] MEDIC[facility] POC 04/25/2023 11:5 4 PM CDT 04/25/2023 11:56 PM CDT Briana Noel MD OTHER LABORATORY [facility] DEPT PATH AND LAB MEDICINE POC [address] [place] [address] * ECG 12-LEAD (04/25/2023 9:38 PM CDT) [...] for LVH, may be normal variant ( [place] product ) Anteroseptal infarct (cited on or [...] LVH, may be normal variant ( [place] product) Anteroseptal infarct (cited on or before 25-APR-2023) ST & T wave abnormality, consider inferior ischemia Abnormal ECG When compared with ECG of 24-APR-2023 12:24, Sinus rhythm has replaced Atrial fibrillation Serial changes of Anteroseptal infarct present Confirmed by Reji Schilling ([id number]) on 04/25/2023 11:22:39 PM Brina Vogel BUSINESS SUPPORT ADMINISTRATOR-DIE TESTER ECG ORDERABLES Performing Organization Address City/[facility]/ZIP Co de Phone Number [facility] * (ABNORMAL) POC GLUCOSE (04/25/2023 7:57 PM CDT) Glucose, POC 214(H) 70 - 100 MG/DL 04/25/2023 7:58 PM CDT [facility] PATH AND LAB MEDICINE POC 04/25/2023 7:5 7 PM CDT 04/25/2023 7:58 PM CDT Briana Noel MD OTHER LABORATORY [facility] DEPT PATH AND LAB MEDICINE POC [address] [place] [address] * (ABNORMAL) BASIC METABOLIC PANEL (04/25/2023 4:31 PM CDT) [facility] Sodium 148(H) 137 - 147 MMOL/L 04/25/2023 [...] >60 >60 mL/min 04/25/2023 5:27 PM CDT [facility] DEPT PATH AND LAB MEDICINE Comment:eGFR calculated nicolás ryder the CKD-EPIcr_R equation BLOOD / Unknown 04/25/2023 4:31 PM CDT 04/25/2023 4:38 PM CDT Gabriela Lombardi BUSINESS SUPPORT ADMINISTRATOR-DIE TESTER LABORATORY ORDERABLES Performing Organization Address [facility]/ZIP Co de Phone Number [facility] PATH AND LAB MEDICINE [address] [place] [address], * (ABNORMAL) POC GLUCOSE (04/25/2023 4:30 PM CDT) Glucose, POC 205(H) 70 - 100 MG/DL 04/25/2023 4:32 PM CDT [facility] P[facility] 04/25/2023 4:3 0 PM CDT 04/25/2023 4:32 PM CDT Briana Noel MD OTHER LABORATORY Performing Organization Address [facility] Co de Phone Number [facility] PATH AND LAB MEDICINE POC [address] [place] [address] * C DIFFICILE BY PCR (04/25/2023 8:08 AM CDT) C. difficile Toxin B PCR Negative: Repeat testing within 7 days of a negative result will not be performed. Testing after 7 days may be performed if clinically indicated. 04/25/2023 9:51 AM CDT [facility] PATH AND LAB MEDICINE Feces FECES / Unknown 04/25/2023 8:08 AM CDT 04/25/2023 8:37 AM CDT Gabriela Lombardi BUSINESS SUPPORT ADMINISTRATOR-DIE TESTER MICROBIOLOG Y ORDERABLES Performing Organization Address [facility]/ZIP Co de Phone Number [facility] PATH AND LAB MEDICINE [address] [place] [address], * (ABNORMAL) PHOSPHORUS CELLULAR THERAPEUTICS (04/25/2023 2:11 AM CDT) Phosphorus 1.9(L) 2.0 - 4.5 MG/DL 04/25/2023 3:01 AM CDT [facility] PATH AND LAB MEDICINE BLOOD / Unknown 04/25/2023 2:11 AM CDT 04/25/2023 2:27 AM CDT Brian Vogel BUSINESS SUPPORT ADMINISTRATOR-DIE TESTER LABORATORY ORDERABLE S [facility] [address] [place] [address], * MAGNESIUM CELLULAR THERAPEUTICS (04/25/2023 2:11 AM CDT) Magnesium 2.4 1.6 - 2.6 mg/dL 04/25/2023 3:01 AM CDT [facility] DEPT PATH AND LAB MEDICINE BLOOD / Unknown 04/25/2023 2:11 AM CDT 04/25/2023 2:27 AM CDT Brian Vogel BUSINESS SUPPORT ADMINISTRATOR-DIE TESTER LABORATORY ORDERABLE S Performing Organization Address City/[facility]/ZIP Co de Phone Number [facility] [address] * (ABNORMAL) COMPREHENSIVE METABOLIC PANEL (04/25/2023 2:11 AM CDT) Sodium 146 137 - 147 MMOL/L 04/25/2023 3:01 AM CDT [facility] PATH AND LAB MEDICINE Potassium 3.6 3.5 - 5.1 MMOL/L 04/25/2023 3:01 AM CDT [facility] DEPT PATH AND LAB MEDICINE Chloride 111(H) 98 - 110 MMOL/L 04/25/2023 3:01 AM CDT [facility] DEPT PATH AND LAB MEDICINE Glucose 194(H) 70 - 100 MG/DL 04/25/2023 3:01 AM CDT [facility] PATH AND LAB MEDICINE Blood Urea Nitrogen 37(H) 7 - 25 MG/DL 04/25/2023 3:01 AM CDT [facility] PATH AND LAB MEDICINE Creatinine 0.81 0.4 - 1.00 MG/DL 04/25/2023 3:01 AM CDT [facility] DEPT PATH AND LAB MEDICINE Calcium 8.2(L) 8.5 - 10.6 MG/DL 04/25/2023 3:01 AM CDT [facility] DEPT PATH AND LAB MEDICINE Total Protein 5.8(L) 6.0 - 8.0 G/DL 04/25/2023 3:01 AM CDT [facility] DEPT PATH AND LAB MEDICINE Total Bilirubin 0.6 0.3 - 1.2 MG/DL 04/25/2023 3:01 AM CDT [facility] DEPT PATH AND LAB MEDICINE Albumin 3.2(L) 3.5 - 5.0 G/DL 04/25/2023 3:01 AM CDT [facility] DEPT PATH AND LAB MEDICINE Alk Phosphatase 44 25 - 110 U/L 04/25/2023 3:01 AM CDT [facility] DEPT PATH AND LAB MEDICINE AST (SGOT) 29 7 - 40 U/L 04/25/2023 3:01 AM CDT [facility] DEPT PATH AND LAB MEDICINE CO2 26 21 - 30 MMOL/L 04/25/2023 3:01 AM CDT [facility] DEPT PATH AND LAB MEDICINE ALT (SGPT) 38 7 - 56 U/L 04/25/2023 3:01 AM CDT [facility] DEPT PATH AND LAB MEDICINE Anion Gap 9 3 - 12 04/25/2023 3:01 AM CDT [facility] DEPT PATH AND LAB MEDICINE eGFR >60 >60 mL/min 04/25/2023 3:01 AM CDT [facility] DEPT PATH AND LAB MEDICINE Comment:eGFR calculated nicolás ryder the CKD-EPIcr_R equation BLOOD / Unknown 04/25/2023 2:11 AM CDT 04/25/2023 2:27 AM CDT Brian Vogel BUSINESS SUPPORT ADMINISTRATOR-DIE TESTER LABORATORY ORDERABLE S [facility] [address] [place] [address], * (ABNORMAL) CBC AND DIFF (04/25/2023 2:11 AM CDT) White Blood Cells 22.7(H) 4.5 - 11.0 K/UL 04/25/2023 2:36 AM CDT [facility] DEPT PATH AND LAB MEDICINE RBC 4.06 4.0 - 5.0 M/UL 04/25/2023 2:36 AM CDT [facility] DEPT PATH [...] - 4.8 K/UL 04/25/2023 3:36 AM CDT [facility] DEPT PATH AND LAB MEDICINE Absolute Monocyte Count 1.10(H) 0 - 0.80 K/UL 04/25/2023 3:36 AM CDT [facility] DEPT PATH AND LAB MEDICINE Absolute Eosinophil Count 0.00 0 - 0.45 K/UL 04/25/2023 3:36 AM CDT [facility] DEPT PATH AND LAB MEDICINE Absolute Basophil Count 0.06 0 - 0.20 K/UL 04/25/2023 3:36 AM CDT [facility] DEPT PATH AND LAB MEDICINE BLOOD / Unknown 04/25/2023 2:11 AM CDT 04/25/2023 2:27 AM CDT Brian Vogel BUSINESS SUPPORT ADMINISTRATOR-DIE TESTER LABORATORY ORDERABLE S Performing Organization Address City/State/[facility] Co de Phone Number [facility] [address] [place] [address], * FEEDING TUBE PLCMNT (ABD/CHEST LMTD) (04/24/2023 3:13 PM CDT) Anatomical Region Laterality Modality CHEST, Abdomen Computed Radiogr aphy 04/24/2023 5:3 0 PM CDT Impressions 04/24/2023 5:31 PM CDT Findings/impression: Lower thorax and abdomen are included in the [id number]. Bilateral pleural effusions with bibasilar atelectasis. Indwelling [...] thorax and abdomen are included in the [id number]. Bilateralpleural effusions with bibasilar atelectasis. Indwelling nasoentericcatheter with its tip overlying the region of the proximal duodenum. Aright ureteral stent is partially visualized. The visualized bowel loopsare nondistended. Finalized by Fili Florence D.O. on 04/24/2023 5:31 PM. Dictated by Britany Godwin on 04/24/2023 5:30 PM. Gabriela Lombardi BUSINESS SUPPORT ADMINISTRATOR-DIE TESTER DIAGNOSTIC IMAGING ORDERABLES * (ABNORMAL) BASIC METABOLIC [...] 12:38 PM CDT Gabriela Perez Se Lombardi BUSINESS SUPPORT ADMINISTRATOR-DIE TESTER LABORATORY ORDERABLES Performing Organization Address City/[facility]/ZIP Co de Phone Number [facility] DEPT PATH AND LAB MEDICINE [address] [place] [address], [place] * ECG 12-LEAD (04/24/2023 12:24 PM [...] (167) on 04/24/2023 2:06:17 PM Brian Vogel BUSINESS SUPPORT ADMINISTRATOR-DIE TESTER ECG ORDERABLES GE MUSE * 2D + DOPPLER ECHO [...] LAB Ao VTI 35.10 cm OTHER OUTS [facility] LAB Sinus 3.40 2.4 - 3.6 cm [...] 25.60 OTHER OUTSIDE LAB CV ECHO PV SPORTS TRAINER Lindsey IGNACIO OTHER OUTSIDE LAB Cardiology Ultrasound Machine Harpal Epiq OTHER OUTSIDE LAB LEIGH'S BIPLANE EF 20 % OTHER OUTSIDE LAB LVOT peak hannah 0.6 m/s OTHER OUTSIDE LAB AV Stroke Volume Index 17 OTHER OUTSIDE LAB AV peak velocity 2.2 m/s OTHER OUTSIDE LAB and a peak gradient of 18 mmHg OTHER OUTSIDE LAB AV index (nisqually) 0.27 OTHER OUTSIDE LAB TR PEAK VELOCITY [...] mid inferior and apical inferior. Brian Franco BUSINESS SUPPORT ADMINISTRATOR-DIE TESTER ECHO ORDERABLES * ECG 12-LEAD (04/24/2023 8:12 [...] (137) on 04/24/2023 11:04:39 AM Brian Vogel APRN-DIE TESTER ECG ORDERABLES GE MUSE * ECG 12-LEAD [...] (167) on 04/24/2023 8:31:07 AM Brian Vogel BUSINESS SUPPORT ADMINISTRATOR-DIE TESTER ECG ORDERABLES GE MUSE * (ABNORMAL) HIGH SENSITIVITY TROPONIN I, RANDOM (04/24/2023 3:37 AM CDT) hs Troponin I, Random 704(H) <12 ng/L 04/24/2023 9:06 AM CDT [facility] DEPT PATH AND LAB MEDICINE 04/24/2023 3:3 7 AM CDT 04/24/2023 4:02 AM CDT Brian Vogel BUSINESS SUPPORT ADMINISTRATOR-DIE TESTER LABORATORY ORDERABLE [facility] [address] [place] [address], * PHOSPHORUS CELLULAR THERAPEUTICS (04/24/2023 3:37 AM CDT) Phosphorus 2.1 2.0 - 4.5 MG/DL 04/24/2023 4:38 AM CDT [facility] DEPT PATH AND LAB MEDICINE BLOOD / Unknown 04/24/2023 3:37 AM CDT 04/24/2023 4:02 AM CDT Brian Vogel BUSINESS SUPPORT ADMINISTRATOR-DIE TESTER LABORATORY ORDERABLE [facility] [address] [place] [address], * MAGNESIUM CELLULAR THERAPEUTICS (04/24/2023 3:37 AM CDT) Magnesium 2.5 1.6 - 2.6 mg/dL 04/24/2023 4:38 AM CDT [facility] DEPT PATH AND LAB MEDICINE BLOOD / Unknown 04/24/2023 3:37 AM CDT 04/24/2023 4:02 AM CDT Brian Vogel BUSINESS SUPPORT ADMINISTRATOR-DIE TESTER LABORATORY ORDERABLE S [facility] DEPT PATH AND LAB MEDICINE [address] [place] [address], * (ABNORMAL) COMPREHENSIVE METABOLIC PANEL (04/24/2023 3:37 AM CDT) Sodium 144 137 - 147 [...] >60 >60 mL/min 04/24/2023 4:38 AM CDT [facility] DEPT PATH AND LAB MEDICINE Comment:eGFR calculated nicolás ryder the CKD-EPIcr_R equation BLOOD / Unknown 04/24/2023 3:37 AM CDT 04/24/2023 4:02 AM CDT Brian Vogel [facility]OR[facility] ORDERABLE S [facility] DEPT PATH AND LAB MEDICINE [address] [place] [address], [place] * (ABNORMAL) CBC AND DIFF (04/24/2023 3:37 AM CDT) White Blood Cells 35.6(H) 4.5 - 11.0 K/UL 04/24/2023 4:12 AM CDT [facility] DEPT PATH AND LAB MEDICINE RBC 3.94(L) 4.0 - 5.0 M/UL 04/24/2023 4:12 AM CDT [facility] DEPT PATH AND LAB MEDICINE Hemoglobin 11.2(L) [...] CDT 04/24/2023 4:02 AM CDT Brian Vogel BUSINESS SUPPORT ADMINISTRATOR-DIE TESTER LABORATORY ORDERABLE S [facility] DEPT PATH AND LAB MEDICINE [address] [place] [address], * URIC ACID (04/24/2023 3:37 AM CDT) Uric Acid 4.6 2.0 - 7.0 MG/DL 04/24/2023 4:38 AM CDT [facility] DEPT PATH AND LAB MEDICINE BLOOD / Unknown 04/24/2023 3:37 AM CDT 04/24/2023 4:02 AM CDT Gabriela Lombardi BUSINESS SUPPORT ADMINISTRATOR-DIE TESTER LABORATORY ORDERABLES [facility] [address] [place] [address], * CULTURE-BLOOD W/SENSITIVITY (04/23/2023 3:57 PM CDT) Pathologist [facility] Battery Name BLOOD CULTURE [facility] DEPT PATH AND LAB MEDICINE Report Status FINAL 04/29/2023 [facility] DEPT PATH AND LAB MEDICINE Specimen Description BLOOD ARM, RIGHT [facility] DEPT PATH AND LAB MEDICINE Special Requests No special requests 04/22/2023 6:16 PM CDT [facility] DEPT PATH AND LAB MEDICINE Culture NO GROWTH 5 DAYS 04/29/2023 6:15 AM CDT [facility] DEPT PATH AND LAB MEDICINE Blood RIGHT UPPER ARM STRUCTURE / Unknown 04/23/2023 3:57 PM CDT 04/23/2023 4:20 PM CDT Brian Vogel BUSINESS SUPPORT ADMINISTRATOR-DIE TESTER MICROBIOLOGY ORDERAB LES [facility] [address] [place] [address], * (ABNORMAL) HIGH SENSITIVITY TROPONIN I, RANDOM (04/23/2023 2:37 PM CDT) Pathologist [facility] hs Troponin I, Random 931(H) <12 ng/L 04/23/2023 3:41 PM CDT [facility] DEPT PATH AND LAB MEDICINE BLOOD / Unknown 04/23/2023 2:37 PM CDT 04/23/2023 2:41 PM CDT Brian Vogel BUSINESS SUPPORT ADMINISTRATOR-DIE TESTER LABORATORY ORDERABLE S [facility] [address] [place] [address], [place] * (ABNORMAL) HIGH SENSITIVITY TROPONIN I, RANDOM (04/23/2023 10:29 AM CDT) hs Troponin I, Random 1,380(H) <12 ng/L 04/23/2023 11:40 AM CDT [facility] BLOOD / Unknown 04/23/2023 1 0:29 AM CDT 04/23/2023 10:38 AM CDT Brian Vogel BUSINESS SUPPORT ADMINISTRATOR-DIE TESTER LABORATORY ORDERABLE S Performing Organization Address City/[facility]/ZIP Co de Phone Number [facility] [address] [place] [address], [place] * CHEST SINGLE VIEW (04/23/2023 6:40 [...] M.D. on 04/23/2023 11:06 AM. Brian Vogel BUSINESS SUPPORT ADMINISTRATOR-DIE TESTER DIAGNOSTIC IMAGING O RDERABLES * (ABNORMAL) BLOOD GASES, ARTERIAL (04/23/2023 6:18 AM CDT) pH-Arterial 7.28(L) 7.35 - 7.45 04/23/2023 6:26 AM CDT [facility] DEPT PATH AND LAB MEDICINE pCO2-Arterial 43 35 - 45 MMHG 04/23/2023 6:26 AM CDT [facility] DEPT PATH AND LAB MEDICINE pO2-Arterial 183(H) 80 - 100 MMHG 04/23/2023 6:26 AM CDT [facility] DEPT PATH AND LAB MEDICINE Base Deficit-Arteri al 6.6 MMOL/L 04/23/2023 6:26 AM CDT [facility] DEPT PATH AND LAB MEDICINE O2 Sat-Arterial 99.0 95 - 99 % 04/23/2023 6:26 AM CDT [facility] DEPT PATH AND LAB MEDICINE Bicarbonate-AR T-Shahab 19.1(L) 21 - 28 MMOL/L 04/23/2023 6:26 AM CDT [facility] DEPT PATH AND LAB MEDICINE BLOOD / Unknown 04/23/2023 6:18 AM CDT 04/23/2023 6:24 AM CDT Brian Mina Jaspreet BUSINESS SUPPORT ADMINISTRATOR-DIE TESTER OTHER LABORATORY [facility] [address] * (ABNORMAL) HIGH SENSITIVITY TROPONIN I, RANDOM (04/23/2023 6:18 AM CDT) Pathologist [facility] hs Troponin I, Random 1,412(H) <12 ng/L 04/23/2023 7:07 AM CDT [facility] BLOOD / Unknown 04/23/2023 6:18 AM CDT 04/23/2023 6:29 AM CDT Brian Mina Jaspreet MACKENZIEN-DIE TESTER LABORATORY ORDERABLE S Performing Organization Address [facility] Co de Phone Number [facility] PATH AND LAB MEDICINE [address] * MRSA PNEUMONIA SCREEN (04/23/2023 6:10 AM CDT) Pathologist [facility] MRSA Pneumonia PCR NOT DETECTED The negative predictive value of this assay for MRSA pneumonia is high. Discontinuation of anti-MRSA pneumonia therapy is recommended in patients without additional clinical features that warrant MRSA therapy. Contact infectious Diseases or Antimicrobial Stewardship with questions. 04/23/2023 9:00 AM CDT [facility] Flocked Swab SWAB OF INTERNAL NOSE / Unknown 04/23/2023 6:10 AM CDT 04/23/2023 7:10 AM CDT Kate De La Cruz MD MICROBIOLOGY ORDERAB LES [facility] PATH AND LAB MEDICINE [address] * CULTURE-URINE W/SENSITIVITY (04/23/2023 5:12 AM CDT) Battery Name URINE CULTURE [facility] Report Status FINAL 04/24/2023 [facility] Specimen Description URINE CATHETER [facility] DEPT PATH AND LAB MEDICINE Special Requests No special requests 04/23/2023 5:13 AM CDT [facility] DEPT PATH AND LAB MEDICINE Culture NO GROWTH 04/24/2023 7:34 AM CDT [facility] DEPT PATH AND LAB MEDICINE Urine URINARY BLADDER STRUCTURE / Unknown 04/23/2023 5:12 AM CDT Comment:Routine Culture Jerald Lindquist MD MICROBIOLOGY MERCEDES SULLIVAN Performing Organization Address City/[facility]/ZIP Co de Phone Number [facility] [address] [place] [address], [place] * (ABNORMAL) BLOOD GASES, ARTERIAL (04/23/2023 4:06 AM CDT) pH-Arterial 7.31(L) 7.35 - 7.45 04/23/2023 4:18 AM CDT [facility] DEPT PATH AND LAB MEDICINE pCO2-Arterial 42 35 - 45 MMHG 04/23/2023 4:18 AM CDT [facility] DEPT PATH AND LAB MEDICINE pO2-Arterial 87 80 - 100 MMHG 04/23/2023 4:18 AM CDT [facility] DEPT PATH AND LAB MEDICINE Base Deficit-Arteri al 5.1 MMOL/L 04/23/2023 4:18 AM CDT [facility] DEPT PATH AND LAB MEDICINE O2 Sat-Arterial 96.8 95 - 99 % 04/23/2023 4:18 AM CDT [facility] DEPT PATH AND LAB MEDICINE Bicarbonate-AR T-Shahab 20.2(L) 21 - 28 MMOL/L 04/23/2023 4:18 AM CDT [facility] DEPT PATH AND LAB MEDICINE BLOOD / Unknown 04/23/2023 4:06 AM CDT 04/23/2023 4:13 AM CDT Brian Vogel APRN-DIE TESTER OTHER LABORATORY Performing Organization Address City/[facility]/ZIP Co de Phone Number [facility] [address] [place] [address], [place] * PHOSPHORUS CELLULAR THERAPEUTICS (04/23/2023 3:46 AM CDT) Phosphorus 2.3 2.0 - 4.5 MG/DL 04/23/2023 4:38 AM CDT [facility] DEPT PATH AND LAB MEDICINE BLOOD / Unknown 04/23/2023 3:46 AM CDT 04/23/2023 4:04 AM CDT Brian Vogel BUSINESS SUPPORT ADMINISTRATOR-DIE TESTER LABORATORY ORDERABLE S [facility] [address] [place] [address], * MAGNESIUM CELLULAR THERAPEUTICS (04/23/2023 3:46 AM CDT) Magnesium 2.5 1.6 - 2.6 mg/dL 04/23/2023 4:38 AM CDT [facility] DEPT PATH AND LAB MEDICINE BLOOD / Unknown 04/23/2023 3:46 AM CDT 04/23/2023 4:04 AM CDT Brian Vogel BUSINESS SUPPORT ADMINISTRATOR-DIE TESTER LABORATORY ORDERABLE S [facility] [address] [place] [address], * (ABNORMAL) COMPREHENSIVE METABOLIC PANEL (04/23/2023 3:46 AM CDT) Sodium 144 137 - 147 MMOL/L 04/23/2023 4:38 AM CDT [facility] DEPT PATH AND LAB MEDICINE Potassium 4.1 3.5 - 5.1 MMOL/L 04/23/2023 4:38 AM CDT [facility] DEPT PATH AND LAB MEDICINE Chloride 112(H) 98 - 110 MMOL/L 04/23/2023 4:38 AM CDT [facility] DEPT PATH AND LAB MEDICINE Glucose 150(H) 70 - 100 MG/DL 04/23/2023 4:38 AM CDT [facility] DEPT PATH AND LAB MEDICINE Blood Urea Nitrogen 24 7 - 25 MG/DL 04/23/2023 4:38 AM CDT [facility] DEPT PATH AND LAB MEDICINE Creatinine 0.79 0.4 - 1.00 MG/DL 04/23/2023 4:38 AM CDT [facility] DEPT PATH AND LAB MEDICINE Calcium 8.0(L) 8.5 - 10.6 MG/DL 04/23/2023 4:38 AM CDT [facility] DEPT PATH AND LAB MEDICINE Total Protein 5.7(L) 6.0 - 8.0 G/DL 04/23/2023 4:38 AM CDT [facility] DEPT PATH AND LAB MEDICINE Total Bilirubin 0.7 0.3 - 1.2 MG/DL 04/23/2023 4:38 AM CDT [facility] DEPT PATH AND LAB MEDICINE Albumin 3.2(L) 3.5 - 5.0 G/DL 04/23/2023 4:38 AM CDT [facility] DEPT PATH AND LAB MEDICINE Alk Phosphatase 57 25 - 110 U/L 04/23/2023 4:38 AM CDT [facility] DEPT PATH AND LAB MEDICINE AST (SGOT) 39 7 - 40 U/L 04/23/2023 4:38 AM CDT [facility] DEPT PATH AND LAB MEDICINE CO2 20(L) 21 - 30 MMOL/L 04/23/2023 4:38 AM CDT [facility] DEPT PATH AND LAB MEDICINE ALT (SGPT) 34 7 - 56 U/L 04/23/2023 4:38 AM CDT [facility] DEPT PATH AND LAB MEDICINE Anion Gap 12 3 - 12 04/23/2023 4:38 AM CDT [facility] DEPT PATH AND LAB MEDICINE eGFR >60 >60 mL/min 04/23/2023 4:38 AM CDT [facility] DEPT PATH AND LAB MEDICINE Comment:eGFR calculated nicolás ryder the CKD-EPIcr_R equation BLOOD / Unknown 04/23/2023 3:46 AM CDT 04/23/2023 4:04 AM CDT Brian Vogel BUSINESS SUPPORT ADMINISTRATOR-DIE TESTER LABORATORY ORDERABLE S [facility] [address] [place] [address], [place] * (ABNORMAL) CBC AND DIFF (04/23/2023 3:46 AM CDT) [facility] White Blood Cells 33.3(H) 4.5 - 11.0 K/UL 04/23/2023 4:14 AM CDT [facility] DEPT PATH AND LAB MEDICINE RBC 3.74(L) [...] - 7.0 K/UL 04/23/2023 6:56 AM CDT [facility] DEPT PATH AND LAB MEDICINE Absolute Lymph Count 0.57(L) 1.0 - 4.8 K/UL 04/23/2023 6:56 AM CDT [facility] DEPT PATH AND LAB MEDICINE Absolute Monocyte Count 0.92(H) 0 - 0.80 K/UL 04/23/2023 6:56 AM CDT [facility] DEPT PATH AND LAB MEDICINE Absolute Eosinophil Count 0.35 0 - 0.45 K/UL 04/23/2023 6:56 AM CDT [facility] DEPT PATH AND LAB MEDICINE Absolute Basophil Count 0.06 0 - 0.20 K/UL 04/23/2023 6:56 AM CDT [facility] PATH [facility] LAB MEDICINE BLOOD / Unknown 04/23/2023 3:46 AM CDT 04/23/2023 4:04 AM CDT Brian Vogel BUSINESS SUPPORT ADMINISTRATOR-DIE TESTER LABORATORY ORDERABLE S [facility] [address] [place] [address], * LACTIC ACID (BG - RAPID LACTATE) (04/23/2023 3:46 AM CDT) Lactic Acid,BG 1.7 0.5 - 2.0 MMOL/L 04/23/2023 4:12 AM CDT [facility] BLOOD / Unknown 04/23/2023 3:46 AM CDT 04/23/2023 4:02 AM CDT Brian Franco BUSINESS SUPPORT ADMINISTRATOR-DIE TESTER OTHER LABORATORY [facility] [address] [place] [address], * GRAM STAIN (04/23/2023 2:17 AM CDT) Battery Name GRAM STAIN [facility] Report Status FINAL 04/23/2023 [facility] DEPT PATH AND LAB MEDICINE Specimen [...] CDT 04/23/2023 4:57 AM CDT Brian Vogel BUSINESS SUPPORT ADMINISTRATOR-DIE TESTER MICROBIOLOGY ORDERAB LES [facility] DEPT PATH AND LAB MEDICINE [address] [place] [address], * CULTURE-RESP,LOWER W/SENSITIVITY (04/23/2023 2:17 AM CDT) Battery Name LOWER RESP CULTURE [facility] DEPT PATH AND LAB MEDICINE Report Status [...] 04/23/2023 4:57 AM CDT Brian Mina Jaspreet ALEJANDRO MICROBIOLOGY ORDERAB LES Performing Organization Address [facility]/ZIP Co de Phone Number [facility] [address] [place] [address], * (ABNORMAL) HIGH SENSITIVITY TROPONIN I, RANDOM (04/23/2023 1:11 AM CDT) hs Troponin I, Random 2,610(H) <12 ng/L 04/23/2023 1:57 AM CDT [facility] MEDIC[facility] BLOOD / Unknown 04/23/2023 1:11 AM CDT 04/23/2023 1:17 AM CDT Brian Mina Jaspreet ALEJANDRO LABORATORY ORDERABLE S Performing Organization Address City/[facility]/ZIP Co de Phone Number [facility] PATH AND LAB MEDICINE [address] [place] [address], [place] * (ABNORMAL) LACTIC ACID (BG - RAPID LACTATE) (04/23/2023 1:06 AM CDT) Lactic Acid,BG 2.6(H) 0.5 - 2.0 MMOL/L 04/23/2023 1:28 AM CDT [facility] BLOOD / Unknown 04/23/2023 1:06 AM CDT 04/23/2023 1:24 AM CDT Brian ALEJANDRO OTHER LABORATORY [facility] [address] [place] [address], [place] * LACTIC ACID (BG - RAPID LACTATE) (04/22/2023 9:47 PM CDT) Lactic Acid,BG 1.9 0.5 - 2.0 MMOL/L 04/22/2023 10:21 PM CDT [facility] MEDIC[facility] BLOOD / Unknown 04/22/2023 9:47 PM CDT 04/22/2023 10:12 PM CDT Brian Franco BUSINESS SUPPORT ADMINISTRATOR-DIE TESTER OTHER LABORATORY Performing Organization Address City/[facility]/ZIP Co de Phone Number [facility] [address] * (ABNORMAL) NT-PRO-BNP (04/22/2023 8:03 PM CDT) NT-Pro-BNP 11,158.0(H ) <450 pg/mL 04/22/2023 9:25 PM CDT [facility]IC[facility] Comment: NOTE: Normal reference ranges for NT-proBNP vary by age: <125 pg/mL for individuals < 75 years old <450 pg/mL for individuals =/> 75 years old BLOOD / Unknown 04/22/2023 8:03 PM CDT 04/22/2023 8:52 PM CDT Brian Vogel APRN-WENDY LABORATORY ORDERABLE S Performing Organization Address [facility] Co de Phone Number [facility] [address] * CULTURE-BLOOD W/SENSITIVITY (04/22/2023 8:03 PM CDT) Battery Name BLOOD CULTURE [facility] DEPT PATH AND LAB MEDICINE Report Status FINAL 04/28/2023 [facility] Specimen Description BLOOD BLOOD LINE DRAW PICC LINE [facility] PATH AND LAB MEDICINE Special Requests No special requests 04/22/2023 7:33 PM CDT [facility] DEPT PATH AND LAB MEDICINE Culture NO GROWTH 5 DAYS 04/28/2023 5:39 AM CDT [facility] DEPT PATH AND LAB MEDICINE Blood BLOOD SAMPLE TAKEN FROM CENTRAL LINE / Unknown 04/22/2023 8:03 PM CDT 04/22/2023 9:29 PM CDT Comment:PICC LINE Brian Vogel APRN-DIE TESTER MICROBIOLOGY ORDERAB LES [facility] [address] [place] [address], * PROCALCITONIN (04/22/2023 8:03 PM CDT) Procalcitonin 30.80 ng/mL 04/22/2023 9:33 PM CDT [facility] PATH AND LAB MEDICINE Comment: Suspected Lower Respiratory Tract Infection: >0.25 ng/mL-Increased likeihood bacterial infection Suspected Sepsis: >0.5 ng/mL-Increased likelihood sepsis >2.0 ng/mL-High risk of sepsis/septic shock BLOOD / Unknown 04/22/2023 8:03 PM CDT 04/22/2023 8:53 PM CDT Kate De La Cruz MD LABORATORY ORDERABLE S [facility] PATH AND LAB MEDICINE [address] [place] [address], * CHEST SINGLE VIEW (04/22/2023 7:58 PM [...] Virus NEG NEG-NEG 04/22/2023 8:35 PM CDT [facility] DEPT PATH AND LAB MEDICINE Influenza B Virus NEG NEG-NEG 04/22/2023 8:35 PM CDT [facility] PATH [facility] LAB MEDIC[facility] RSV NEG NEG-NEG 04/22/2023 8:35 PM CDT [facility] DEPT PATH AND LAB MEDICINE Flocked Swab NASOPHARYNGEAL STRUCTURE / Unknown 04/22/2023 6:59 PM CDT 04/22/2023 7:39 PM CDT Brian ALEJANDRO MICROBIOLOGY ORDERAB LES [facility] DEPT PATH AND LAB MEDICINE [address] [place] [address], * COVID-19 (SARS-COV-2) PCR (04/22/2023 6:59 PM CDT) COVID-19 (SARS-CoV-2) PCR Source FLOCKED SWAB NASOPHARYNG EAL 04/22/2023 6:59 PM CDT [facility] DEPT PATH AND LAB MEDICINE COVID-19 (SARS-CoV-2) PCR NOT DETECTED DN-NOT DETECTED 04/22/2023 8:35 PM CDT [facility] Comment: This assay [...] performance characteristics have been verified by the [facility] clinical laboratory. Fact sheet for providers: https://www.fda.gov/media/071267/download Fact sheet for patients: https://www.fda.gov/media/532584/download Flocked Swab NASOPHARYNGEAL STRUCTURE / Unknown 04/22/2023 6:59 PM CDT 04/22/2023 7:39 PM CDT Brian Vogel BUSINESS SUPPORT ADMINISTRATOR-DIE TESTER MICROBIOLOGY ORDERAB LES [facility] [address] [place] [address], * ECG 12-LEAD (04/22/2023 6:54 PM CDT) [...] (167) on 04/22/2023 9:27:42 PM Brian Mina Fanry BUSINESS SUPPORT ADMINISTRATOR-DIE TESTER ECG ORDERABLES Performing Organization Address City/[facility]/ZIP Co de Phone Number [facility] [place] * CULTURE-URINE W/SENSITIVITY (04/22/2023 6:48 PM CDT) Battery Name URINE CULTURE [facility] DEPT PATH AND LAB MEDICINE Report Status FINAL 04/24/2023 [facility] PATH AND LAB MEDICINE Specimen Description URINE CATHETER, IN AND OUT [facility] PATH AND LAB MEDICINE Special Requests No special requests 04/22/2023 9:06 PM CDT [facility] DEPT PATH AND LAB MEDICINE Comment:Reflexed from [id number] Culture NO GROWTH 04/24/2023 8:09 AM CDT [facility] DEPT PATH AND LAB MEDICINE Urine (Catheter, In and Out) 04/22/2023 6:48 PM CDT 04/22/2023 7:40 PM CDT Brian Vogel BUSINESS SUPPORT ADMINISTRATOR-DIE TESTER MICROBIOLOGY ORDERAB LES Performing Organization Address [facility] Co de Phone Number [facility] [address] [place] [address], * (ABNORMAL) URINALYSIS MICROSCOPIC REFLEX TO CULTURE (04/22/2023 6:48 PM CDT) WBCs,UA PACKED 0 - 2 /HPF 04/22/2023 9:06 PM CDT [facility] DEPT PATH AND LAB MEDICINE RBCs,UA PACKED 0 - 3 /HPF 04/22/2023 9:06 PM CDT [facility] DEPT PATH AND LAB MEDICINE Comment,UA Criteria for reflex to culture are WBC>10, Positive Nitrite, and/or >=+1 leukocytes. If quantity is not sufficient, an addendum will follow. 04/22/2023 9:06 PM CDT [facility] DEPT PATH AND LAB MEDICINE UA Reflex Specimen Type and Source URINE CATHETER, IN AND OUT 04/22/2023 6:16 PM CDT [facility] Bacteria,UA MODERATE(A) NEG-NEG 04/22/2023 9:06 PM CDT [facility] PATH AND LAB MEDICINE Uric Acid Crystals FEW 04/22/2023 9:06 PM CDT [facility] DEPT PATH AND LAB MEDICINE Squamous Epithelial Cells 2-5 0 - 5 04/22/2023 9:06 PM CDT [facility] DEPT PATH AND LAB MEDICINE Amorphous Sedimate,UA FEW 04/22/2023 9:06 PM CDT [facility] DEPT PATH AND LAB MEDICINE Urine (Catheter, In and Out) 04/22/2023 6:48 PM CDT 04/22/2023 7:40 PM CDT Brian Vogel BUSINESS SUPPORT ADMINISTRATOR-DIE TESTER URINE ORDERABLES Performing Organization Address City/State/[facility] Co de Phone Number [facility] [address] [place] [address], [place] * (ABNORMAL) URINALYSIS DIPSTICK REFLEX TO CULTURE (04/22/2023 6:48 PM CDT) Color,UA YELLOW 04/22/2023 9:06 PM CDT [facility] Turbidity,UA 2+(A) CLEAR-EDUARDA R 04/22/2023 9:06 PM CDT [facility] DEPT PATH AND LAB MEDICINE Specific [place]-Urine 1.017 1.005 - 1.030 04/22/2023 9:06 PM CDT [facility] Comment:NOTE NEW REFERENCE R VALERIO pH,UA 5.0 5.0 - 8.0 04/22/2023 9:06 PM CDT [facility] DEPT PATH AND LAB MEDICINE Protein,UA 2+(A) NEG-NEG 04/22/2023 9:06 PM CDT [facility] DEPT PATH AND LAB MEDICINE Glucose,UA NEG NEG-NEG 04/22/2023 9:06 PM CDT [facility] DEPT PATH AND LAB MEDICINE Ketones,UA 1+(A) NEG-NEG 04/22/2023 9:06 PM CDT [facility] Bilirubin,UA NEG NEG-NEG 04/22/2023 9:06 PM CDT [facility] Blood,UA 3+(A) NEG-NEG 04/22/2023 9:06 PM CDT [facility] Urobilinogen,U A NORMAL NORM-GENE L 04/22/2023 9:06 PM CDT [facility] Nitrite,UA NEG NEG-NEG 04/22/2023 9:06 PM CDT [facility] Leukocytes,UA 3+(A) NEG-NEG 04/22/2023 9:06 PM CDT [facility] Urine Ascorbic Acid, UA NEG NEG-NEG 04/22/2023 9:06 PM CDT [facility] URINE SPECIMEN / Unknown 04/22/2023 6:48 PM CDT 04/22/2023 7:40 PM CDT Brian Vogel APRN-WENDY URINE ORDERABLES [facility] [address] [place] [address], * CULTURE-BLOOD W/SENSITIVITY (04/22/2023 6:48 PM CDT) Battery Name [facility]LOOD [facility]ULTURE [facility] Report Status FINAL 04/28/2023 [facility] Specimen Description BLOOD BLOOD, PERIPHERAL ARM RIGHT [facility] Special Requests No special requests 04/22/2023 6:16 PM CDT [facility] Culture NO GROWTH 5 DAYS 04/28/2023 5:39 AM CDT [facility] Blood PERIPHERAL BLOOD SPECIMEN / Unknown 04/22/2023 6:48 PM CDT 04/22/2023 7:51 PM CDT Comment:ARM~RIGHT Brian S Jaspreet BUSINESS SUPPORT ADMINISTRATOR-DIE TESTER MICROBIOLOGY ORDERAB LES [facility] [address] * POC SODIUM (04/22/2023 6:47 PM CDT) Sodium-POC 141 137 - 147 MMOL/L 04/22/2023 6:50 PM CDT [facility] PATH AND LAB MEDICINE POC 04/22/2023 6:4 7 PM CDT 04/22/2023 6:50 PM CDT Kate De La Cruz MD OTHER LABORATORY [facility] PATH AND LAB MEDICINE POC [address] [place] [address] * POC POTASSIUM (04/22/2023 6:47 PM CDT) Potassium-POC 4.5 3.5 - 5.1 MMOL/L 04/22/2023 6:50 PM CDT [facility] POC 04/22/2023 6:4 7 PM CDT 04/22/2023 6:50 PM CDT Kate De La Cruz MD OTHER LABORATORY Performing Organization Address City/[facility]/ZIP Co de Phone Number [facility] POC [address] [place] [address] * POC HEMATOCRIT (04/22/2023 6:47 PM CDT) Hemoglobin POC 12.2 12.0 - 15.0 GM/DL 04/22/2023 6:50 PM CDT [facility] DEPT PATH AND LAB MEDICINE POC Hematocrit POC 36.0 36 - 45 % 04/22/2023 6:50 PM CDT [facility] DEPT PATH AND LAB MEDICINE POC 04/22/2023 6:4 7 PM CDT 04/22/2023 6:50 PM CDT Kate De La Cruz MD OTHER LABORATORY Performing Organization Address [facility] Co de Phone Number [facility] [address] [place] [address] * (ABNORMAL) POC BLOOD GAS ARTERIAL (04/22/2023 6:47 PM CDT) PH-ART-POC 7.29(L) 7.35 - 7.45 04/22/2023 6:50 PM CDT [facility] DEPT PATH AND LAB MEDICINE POC [id number] 38 35 - 45 MMHG 04/22/2023 6:50 PM CDT [facility] DEPT PATH AND LAB MEDICINE POC PO2-ART-POC 82 80 - 100 MMHG 04/22/2023 6:50 PM CDT [facility] DEPT PATH AND LAB MEDICINE POC Base Def-ART-POC 9.0 MMOL/L 04/22/2023 6:50 PM CDT [facility] DEPT PATH AND LAB MEDICINE POC O2 Sat-ART-POC 95.0 95 - 99 % 04/22/2023 6:50 PM CDT [facility] DEPT PATH AND LAB MEDICINE POC Bicarbonate-AR T-POC 18.1(L) 21 - 28 MMOL/L 04/22/2023 6:50 PM CDT [facility] DEPT PATH AND LAB MEDICINE POC 04/22/2023 6:4 7 PM CDT 04/22/2023 6:50 PM CDT Kate De La Cruz MD OTHER LABORATORY Performing Organization Address [facility] Co de Phone Number [facility] [address] [place] [address] * (ABNORMAL) POC GLUCOSE (04/22/2023 6:44 PM CDT) Glucose, POC 146(H) 70 - 100 MG/DL 04/22/2023 6:46 PM CDT [facility] DEPT PATH AND LAB MEDICINE POC 04/22/2023 6:4 4 PM CDT 04/22/2023 6:46 PM CDT Kate De La Cruz MD OTHER LABORATORY [facility] [address] [place] [address] * PHOSPHORUS (04/22/2023 6:40 PM CDT) Phosphorus 2.5 2.0 - 4.5 MG/DL 04/22/2023 8:11 PM CDT [facility]OD / Unknown 04/22/2023 6:40 PM CDT 04/22/2023 6:55 PM CDT Brian Mina Vogel BUSINESS SUPPORT ADMINISTRATOR-[employer] LABORATORY ORDERABLE S Performing Organization Address City/[facility]/ZIP Co de Phone Number [facility] [address] * (ABNORMAL) MAGNESIUM (04/22/2023 6:40 PM CDT) Magnesium 2.8(H) 1.6 - 2.6 mg/dL 04/22/2023 8:11 PM CDT [facility] / Unknown 04/22/2023 6:40 PM CDT 04/22/2023 6:55 PM CDT Brian Mina Vogel BUSINESS SUPPORT ADMINISTRATOR-DIE TESTER LABORATORY ORDERABLE S Performing Organization Address City/[facility]/ZIP Co de Phone Number [facility] [address] [place] [address], * IONIZED CALCIUM (04/22/2023 6:40 PM CDT) Ionized Calcium 1.21 1.0 - 1.3 MMOL/L 04/22/2023 7:00 PM CDT [facility] BLOOD / Unknown 04/22/2023 6:40 PM CDT 04/22/2023 6:58 PM CDT Brian S Jaspreet BUSINESS SUPPORT ADMINISTRATOR-DIE TESTER LABORATORY ORDERABLE S [facility] [address] [place] [address], * (ABNORMAL) LACTIC ACID (BG - RAPID LACTATE) (04/22/2023 6:40 PM CDT) Lactic Acid,BG 2.4(H) 0.5 - 2.0 MMOL/L 04/22/2023 7:00 PM CDT [facility] DE[facility] PATH [facility] LAB MEDIC[facility] BLOOD / Unknown 04/22/2023 6:40 PM CDT 04/22/2023 6:58 PM CDT Brian Vogel BUSINESS SUPPORT ADMINISTRATOR-DIE TESTER OTHER LABORATORY [employer] DEPT PATH AND LAB MEDICINE [address] [place] [address], * (ABNORMAL) COMPREHENSIVE METABOLIC PANEL (04/22/2023 6:40 PM CDT) Pathologist [facility] Sodium 140 137 - 147 MMOL/L 04/22/2023 8:11 PM CDT [facility] DEPT PATH [facility] LAB MEDIC[facility] Potassium 4.3 3.5 - 5.1 MMOL/L 04/22/2023 8:11 PM CDT [facility] Chloride 112(H) 98 - 110 MMOL/L 04/22/2023 8:11 PM CDT [facility] DE[facility] PATH [facility] LAB MEDIC[facility] Glucose 133(H) 70 - 100 MG/DL 04/22/2023 8:11 PM CDT [facility] DE[facility] PATH [facility] LAB MEDIC[facility] Blood Urea Nitrogen 21 7 - 25 MG/DL 04/22/2023 8:11 PM CDT [facility] Creatinine 0.77 [...] - 1.2 MG/DL 04/22/2023 8:11 PM CDT [facility] DEPT PATH AND LAB MEDICINE Albumin 3.6 3.5 - 5.0 G/DL 04/22/2023 8:11 PM CDT [facility] DEPT PATH AND LAB MEDICINE Alk Phosphatase 47 25 - 110 U/L 04/22/2023 8:11 PM CDT [facility] DEPT PATH AND LAB MEDICINE AST (SGOT) 47(H) 7 - 40 U/L 04/22/2023 8:11 PM CDT [facility] DEPT PATH AND LAB MEDICINE CO2 18(L) 21 - 30 MMOL/L 04/22/2023 8:11 PM CDT [facility] DEPT PATH AND LAB MEDICINE ALT (SGPT) 35 7 - 56 U/L 04/22/2023 8:11 PM CDT [facility] DEPT PATH AND LAB MEDICINE Anion Gap 10 3 - 12 04/22/2023 8:11 PM CDT [facility] DEPT PATH AND LAB MEDICINE eGFR >60 >60 mL/min 04/22/2023 8:11 PM CDT [facility] DEPT PATH AND LAB MEDICINE Comment:eGFR calculated nicolás ryder the CKD-EPIcr_R equation BLOOD / Unknown 04/22/2023 6:40 PM CDT 04/22/2023 6:55 PM CDT Brian Vogel BUSINESS SUPPORT ADMINISTRATOR-DIE TESTER LABORATORY ORDERABLE S Performing Organization Address [facility] Co de Phone Number [facility] [address] [place] [address], * (ABNORMAL) PTT (APTT) (04/22/2023 6:40 PM CDT) APTT 39.3(H) 24.0 - 36.5 SEC 04/22/2023 8:06 PM CDT [facility] BLOOD / Unknown 04/22/2023 6:40 PM CDT 04/22/2023 6:55 PM CDT Brian Vogel BUSINESS SUPPORT ADMINISTRATOR-DIE TESTER LABORATORY ORDERABLE S [facility] [address] [place] [address], [place] * (ABNORMAL) PROTIME INR (PT) (04/22/2023 6:40 PM CDT) Protime 15.1(H) 9.5 - 14.2 SEC 04/22/2023 8:06 PM CDT [facility] DE[facility]IC[facility] INR 1.4(H) 0.8 - 1.2 04/22/2023 8:06 PM CDT [facility] DE[facility] PATH [facility] LAB MEDIC[facility] BLOOD / Unknown 04/22/2023 6:40 PM CDT 04/22/2023 6:55 PM CDT Brian Vogel BUSINESS SUPPORT ADMINISTRATOR-DIE TESTER LABORATORY ORDERABLE S Performing Organization Address [facility]/ZIP Co de Phone Number [facility] [address] [place] [address], * (ABNORMAL) CBC AND DIFF (04/22/2023 6:40 PM CDT) White Blood Cells 36.7(H) 4.5 - 11.0 K/UL 04/22/2023 7:40 PM CDT [facility] DEPT PATH [facility] LAB MEDIC[facility] RBC 4.14 4.0 - 5.0 M/UL 04/22/2023 7:40 PM CDT [facility] DEPT PATH AND LAB MEDICINE Hemoglobin 11.8(L) 12.0 - 15.0 GM/DL 04/22/2023 7:40 PM CDT [facility] DE[facility] PATH [facility] LAB MEDICINE Hematocrit 35.6(L) [...] - 0.20 K/UL 04/22/2023 7:40 PM CDT [facility] DEPT PATH AND LAB MEDICINE BLOOD / Unknown 04/22/2023 6:40 PM CDT 04/22/2023 6:55 PM CDT Brian Vogel BUSINESS SUPPORT ADMINISTRATOR-DIE TESTER LABORATORY ORDERABLE S [facility] DEPT PATH AND LAB MEDICINE [address] [place] [address], [place] * TELEMETRY STRIPS-SCAN (04/22/2023 12:00 AM [...] Urinary tract infection, site not specified Bacteremia Ureteral stone Calculus of ureter * Advance Care Planning/Resuscitation Status - Brian [...] Oral, EVERY 4 HOURS PRN, Starting on 04/28/23 at 0908, Until Essence 05/01/23 at 1921, Temp > 38 C, TOTAL ACETAMINOPHEN DOSE NOT TO EXCEED 4GM DAILY albuterol sulfate (PROAIR HFA) inhaler 2 puff 2 puff, Inhalation, RT NEEDED, Starting on 04/29/23 at 0812, Until Essence 05/01/23 at 1921, [...] NOTE: This is a HIGH ALERT Medication. 06 (Given - Provider: Miryam Boston RN) insulin aspart (U-100) (NOVOLOG FLEXPEN U-100 INSULIN) injection PEN 0-6 Units 0-6 Units, Subcutaneous, EVERY 4 HOURS, First dose on Fri04/25/23 at 1600, Until Discontinued, LOW DOSE -POC glucose 181-220mg/dL at , , administer 1 unit insulin, at 22, 03* administer 0 units. -POC glucose 221-260mg/dL at , , administer 2 units insulin, at , * administer 1 unit. -POC glucose 261-300mg/dL at , , administer 3 units insulin, at , 03* administer 2 units. -POC glucose 301-350mg/dL at , , administer 4 units insulin, at , * administer 3 units. -POC glucose 351-400mg/dL at , , administer 5 units insulin, at , * administer 4 units. -POC glucose >400mg/dL at , , administer 6 units insulin, at , [...] met)2358 (Med Not Given - Provider: Miryam oBston RN - Reason: Order parameters not met) [...] Saxena RN) 0824 (Given - Provider: Vipul Keenan RN) valACYclovir (VALTREX) tablet 1,000 mg 1,000 mg, Oral, TWICE DAILY, 14 doses, First dose on Fri04/29/23 at 1445, Last dose on Fri05/05/23 at 2100 1521 (Given - Provider: Sabas Saxena, RN)2044 (Given - Provider: Miryam Boston, RN) 0855 (Given - Provider: Sabas Saxena RN)2058 (Given - Provider: Miryam Boston, RN) 0825 (Given - Provider: Vipul Keenan RN) PRN [...] Fri04/25/23 at 1459, Until Essence 05/01/23 at 192, Blood Sugar..., =< 70 mg/dL: See admin [...] NOTE: This is a HIGH ALERT Medication. dhhesm-skatzondm-pmy,al-sim eth (FIRST-MOUTHWASH BLM) oral suspension 10 mL 10 mL, Swish & Swallow, EVERY 3 HOURS PRN, Starting on 04/28/23 at 0133, Until Fri05/01/23 at 1921, Mouth/Throat [...] Count Last Ordered Date First Ordered Date levoFLOXacin (LEVAQUIN) tablet 750 mg 1 loperamide (IMODIUM) oral solution 2 mg 2 1 04/25/2023 potassium chloride SR (K-DUR ) tablet 40 mEq 1 04/30/2023 albuterol sulfate (PROAIR HF A) inhaler 2 puff 1 04/29/2023 aminophylline injection 50 mg 1 04/29/2023 apixaban (ELIQUIS) tablet 5 mg 1 04/29/2023 atorvastatin (LIPITOR) tablet 40 mg 1 04/29 clopiDOGreL (PLAVIX) tablet 75 mg 1 023 eucalyptus-menthoL (HALLS) l ozenge 1 lozenge 1 04/29/2023 metoprolol succinate XL (TOP ROL XL) tablet 50 mg 1 04/29/2023 nitroglycerin (NITROSTAT) tablet 0.4 mg 1 1 potassium chloride oral solution 60 mEq 2 1 04/25/2023 regadenoson (LEXISCAN) injection 0.4 mg 1 1 RP DX N-13 ammonia injection 20 millicurie 1 04/29/2023 sodium chloride 0.9 % infusion 1 04/29/20 23 valACYclovir (VALTREX) tablet 1,000 mg 1 acetaminophen (TYLENOL) tablet 650 mg 1 idcedh-gccxnogxp-jvo,al-swati th (FIRST-MOUTHWASH BLM) oral suspension 10 mL 1 04/28/2023 furosemide (LASIX) injection 40 mg 4 202204/24/2023 losartan (COZAAR) tablet 25 mg 1 04/26/2023 potassium phosphate 24 mmol in dextrose 5% (D5W) 500 mL IVPB 1 04/26/2023 cefTRIAXone (ROCEPHIN) IVP 2 g 1 04/25/2023 dextrose 50% (D50) syringe 25-50 mL 1 04/25 Diet Critical Care Enteral F eeding Volume Based Infusion 4 04/25/2023 04/24/2023 insulin aspart (U-100) (DAE LOG FLEXPEN U-100 INSULIN) injection PEN 0-6 Units 1 04/25/2023 metoprolol tartrate (LOPRESS OR) tablet 50 mg 1 04/25/2023 potassium chloride in water IVPB 10 mEq 3 1 04/24/2023 potassium phosphate 16 mmol in dextrose 5% (D5W) 250 mL IVPB 1 04/25/2023 cefTRIAXone (ROCEPHIN) IVP 1 g 1 04/24/2023 dilTIAZem (cardIZEM) 125 mg in sodium chloride 0.9% (NS) 125 mL IV drip (std conc) 1 04/24/2023 enoxaparin (LOVENOX) syringe 80 mg 1 2022 metoprolol (LOPRESSOR) injection 2.5 mg 1 1 metoprolol (LOPRESSOR) injection 5 mg 2 06/2023 metoprolol tartrate tablet 25 mg 2 04/24/20 23 pancrelipase 20,880 Units/so dium bicarbonate 650 mg (KU CLOG DESTROYER) 1 04/24/2023 perflutren lipid microsphere s (DEFINITY) injection 1-10 Diluted mL 1 04/24/2023 phenoL (CHLORASEPTIC) spray 2 spray 1 04/24 Protein Supplement Packets 1 04/24/2023 SODIUM CHLORIDE 0.9 % IV CHIKI P (Cabinet Override) 3 04/24/2023 04/22/2023 chlorhexidine gluconate (PER IDEX) 0.12 % solution 15 mL 1 04/23/2023 dexMEDEtomidine (PRECEDEX) 4 00 mcg/NS 100 ml IV drip (premade) 2 04/23/2023 fentaNYL (SUBLIMAZE) 1000 mc g/100 mL NS IV drip (std conc)(premade) 1 04/23/2023 fentaNYL (SUBLIMAZE) BOLUS f or continuous infusion 1 04/23/2023 hyoscyamine (ANASPAZ) rapid dissolve tablet 0.125 mg 1 04/23/2023 nalOXone (NARCAN) injection 0.08 mg 1 04/23 norepinephrine (LEVOPHED) 4 mg/250 mL NS IV drip (std conc)(premade) 1 04/23/2023 petrolatum (STYE) ophthalmic ointment 0.25 inch 1 04/23/2023 propofoL (DIPRIVAN) 10 mg/mL IV drip 1 04/13 tamsulosin (FLOMAX) capsule 0.4 mg 1 2022 ALBUTEROL SULFATE 2.5 MG /3 ML (0.083 %) IN NEBU (Cabinet Override) 1 04/22/2023 albuterol-ipratropium (DUONE B) nebulizer solution 3 mL 1 04/22/2023 enoxaparin (LOVENOX) syringe 40 mg 1 2022 furosemide (LASIX) injection 20 mg 1 2022 heparin (porcine) PF syringe 5,000 Units 1 04/22/2023 piperacillin/tazobactam (ZOS YN) 4.5 g in sodium chloride 0.9% (NS) 100 mL IVPB (MB+) 2 04/22/2023 piperacillin/tazobactam (ZOS YN) 4.5 g in sodium chloride 0.9% (NS) 100 mL IVPB (MB+)(EXTENDED INFUSION) 1 04/22/2023 vancomycin (VANCOCIN) 1,000 mg in dextrose 5% (D5W) 250 mL IVPB ([id number]) 1 04/22/2023 vancomycin (VANCOCIN) in 0.9 % sodium chloride 275 mL IVPB 1,250 mg 1 04/22/2023 vancomycin, pharmacy to manage 1 [...] red Date DISCHARGE PATIENT NOW 1 05/01/2023 [facility] 1 05/01/2023 Equipment Count Last Ordered [...] documented as of this encounter Care Teams Agriculture Consultant Relationship Specialty Start Date End Date Dion Be DO [address] [place] [address] PCP - General Family Medicine 04/22/23 documented as of this encounter
--- NOTE | 2023-05-16 14:51 | Physical Therapy Evaluation ---
PT Evaluation-General Medical Diagnosis Admission Date May 16, 2023 at 14:32 Medical Diagnosis: Debility r/t to Upper GI Bleed, Anemia Onset Date: May 10, 2023 Therapy Diagnosis Therapy Diagnosis: Decreased Functional mobility Height/Weight Height (Feet): 5 Height (Inches): 4.00 Weight (Pounds): 140 Precautions Precautions/Isolations: Fall Prevention, Standard Precautions Weight Bear Status Right Lower Extremity: Right Full Weight Bearing Left Lower Extremity: Left Full Weight Bearing Referral Physician: Lela Reason for Referral: Evaluation/Treatment Medical History Pertinent Medical History: Atrial Fib, HTN Current History 77 year old female with PMH HTN, AFib on Eliquis, HLD, nephrolithiasis with septic stone and hydronephrosis s/p ureteral stent, who presented with melena. She reports having black stools recently. She denies abdominal pain. She denies nausea and vomiting. 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 She was admitted earlier this month with septic shock due to Klebsiella oxytoca UTI and bacteremia. She was found to have an obstructing ureteral stone and was transferred to [facility]. She required intubation. She had the stone removed and a ureteral stent placed. She had issues with AFib with RVR and was started on Eliquis. She had an NSTEMI, presumably type II due to shock. Transferred to swing bed Reviewed History: Yes Social History Home: [facility] Current Living Status: Spouse Entry Into Home: Ramp Tub shower, Toilet riser, GBs, SC Prior Prior Level of Function SCALE: Activities may be completed with or without assistive devices. 4-Hcphcgvmef-qehezcp completes the activity by him/herself with no assistance from a helper. 5-Set-up or Clean-up Assistance-helper sets up or cleans up; patient completes activity. [place]dall assists only prior to or following the activity. 4-Supervision or Touching Assistance-helper provides verbal cues and/or touching/steadying and/or contact guard assistance as patient completes activity. Assistance may be provided throughout the activity or intermittently. 3-Partial/Moderate Assistance-helper does LESS THAN HALF the effort. [place]dall lifts, holds or supports trunk or limbs, but provides less than half the effort. 2-Substantial/Maximal Assistance-helper does MORE THAN HALF the effort. [place] lifts or holds trunk or limbs and provides more than half the effort. 3-Patolhzaq-hlvkmg does ALL the effort. Patient does none of the effort to complete the activity. Or, the assistance of 2 or more helpers is required for the patient to complete the activity. If activity was not attempted, code reason: 7-Patient Refused. 9-Not Applicable-not attempted and the patient did not perform the activity before the current illness, exacerbation or injury. 10-Not Attempted due to Environmental Limitations-(lack of equipment, weather restraints, etc.). 88-Not Attempted due to Medical Conditions or Safety Concerns. Bed Mobility: 6 Transfers (B,C,W/C): 6 Gait: 6 Stairs: 6 Wheelchair Mobility: 9 Indoor Mobility (Ambulation): Independent Stairs: Independent Prior Devices Use: None At PLOF, pt was Ind with no AD and driving PT Evaluation-Current Subjective Pt is agreeable to PT. Denies pain Pain Numeric Pain Scale: 0-No Pain Location: No Pain Reported Section J - Health Conditions 1. Rarely or not at all 2. Occasionally 3. Frequently 4. Almost constantly 8. Unable to answer Pain Effect on Sleep: 1 Pain Interference with Therapy: 1 Pain Interference w/Day-to-Day: 1 Pt/Family Goals Safely return home with spouse Objective Patient Orientation: Person, Place, Time, Situation Attachments: Benson Catheter, IV ROM/Strength ROM Upper Extremities See OT eval ROM Lower Extremities WFL Strength Upper Extremities See OT eval Strength Lower Extremities B LE MMT = 3+/5 Integumentary/Posture Integumentary See nurses note Bowel Incontinence: No Bladder Incontinence: Benson Cath Sensory Vision: Functional Hearing: Functional Hand Dominance: Right Sensation Right Upper Extremit: Intact Sensation Left Upper Extremity: Intact Sensation Right Lower Extremit: Intact Sensation Left Lower Extremity: Intact Transfers Roll Left & Right (QC): 4 Sit to Lying (QC): 4 Lying to Sitting/Side of Bed(Q: 4 Sit to Stand (QC): 4 Chair/Ruq-jd-Nwrjw Xfer(QC): 4 Toilet Transfer (QC): 4 Car Transfer (QC): 9 Gait Does the Patient Walk?: Yes Mode of Locomotion: Walk Anticipated Mode of Locomotion: Walk Walk 10 feet (QC): 4 Walk 50 ft with 2 Turns(QC): 4 Walk 150 ft (QC): 4 Walking 10ft/uneven surface-QC: 9 Gait Assistive Device: FWW Wheelchair Training Does the Pt Use a Wheelchair?: No Wheel 50 ft with 2 turns (QC): 9 Wheel 150 ft (QC): 9 Type of Wheelchair: N/A Stairs 1 Step (curb) (QC): 9 4 Steps (QC): 9 12 Steps (QC): 9 Walking Assistive Device: Walker Balance Sitting Static: Normal Sitting Dynamic: Good Standing Static: Fair Standing Dynamic: Fair Picking up an Object (QC): 4 Treatment PT eval completed Assessment/Needs Pt tolerated PT well, with good effort Rehab Potential: Good PT Appliance Service Representative Goals Appliance Service Representative Goals PT Prison Goals Time Frame: May 30, 2023 Roll Left to Right (QC): 6 Sit to Lying (QC): 6 Lying-Sitting on Side/Bed(QC): 6 Sit to Stand (QC): 6 Chair/Rep-iu-Eimyk Xfer(QC): 6 Toilet/Commode Transfer (QC): 6 Car Transfer (QC): 6 Does the Patient Walk: Yes Walk 10 feet (QC): 6 Walk 10ft-Uneven Surface(QC): 9 Walk 50ft with 2 Turns (QC): 6 Walk 150 ft (QC): 6 Does the Pt use WC or Scooter?: No Wheel 50 feet with 2 turns (QC: 9 Type: N/A Wheel 150 feet: 9 Type: N/A 1 Step (curb) (QC): 9 4 Steps (QC): 9 12 Steps (QC): 9 Picking up an Object (QC): 6 PT Plan Problem List Problem List: Activity Tolerance, Functional Strength, Safety, Balance, Gait, Transfer, Bed Mobility, ROM Treatment/Plan Treatment Plan: Continue Plan of Care Treatment Plan: Bed Mobility, Education, Functional Activity Kerry, Functional Strength, Group Therapy, Gait, Safety, Therapeutic Exercise, Transfers Treatment Duration: May 30, 2023 Frequency: 6 times per week Estimated Hrs Per Day: .25 hour per day Patient and/or Family Agrees t: Yes Safety Risks/Education Patient Education: Gait Training, Transfer Techniques, Correct Positioning, Safety Issues Teaching Recipient: Patient Teaching Methods: Demonstration, Discussion Response to Teaching: Reinforcement Needed Discharge Recommendations Therapy Discharge Recommendati: Home & Family Equpiment Recommendations-D/C: None Discharge Status/Home Program Cont per POC Barriers to Progress Weakness Target Placement Home with family Time Time In: 1440 Time Out: 1510 DATE: May 16, 2023 Total Billed Treatment Time: 30 Total Billed Treatment 30 min total from 7110-2904; 15 min co-tx from 9529-1904 1 visit EILEEN (15'), GT (15' co-tx) PIYUSH COLLINS PT May 16, 2023 14:51
[2023-05-16 15:00] VITALS: BP 128/58
--- NOTE | 2023-05-16 16:10 | Occupational Therapy Eval ---
OT Evaluation-General/PLF Medical Diagnosis Admission Date May 16, 2023 at 14:32 Medical Diagnosis: Debility r/t to Upper GI Bleed, Anemia Onset Date: May 10, 2023 Therapy Diagnosis Therapy Diagnosis: weakness Height/Weight Height (Feet): 5 Height (Inches): 4.00 Weight (Pounds): 140 Precautions Precautions/Isolations: Fall Prevention, Standard Precautions Weight Bear Status Weight Bearing Restriction: Full Weight Bearing Location Restriction: LE Bilateral Referral Physician: Lela Referral Reason: Self Care, Evaluation/Treatment Medical History Pertinent Medical History: Atrial Fib, HTN Reviewed History: Yes Social History Home: [facility] Current Living Status: Spouse Entry Into Home: Ramp ADL-Prior Level of Function SCALE: Activities may be completed with or without assistive devices. 3-Pzblzhzosj-enfrrxs completes the activity by him/herself with no assistance from a helper. 5-Set-up or Clean-up Assistance-helper sets up or cleans up; patient completes activity. [place] assists only prior to or following the activity. 4-Supervision or Touching Assistance-helper provides verbal cues and/or touching/steadying and/or contact guard assistance as patient completes activity. Assistance may be provided throughout the activity or intermittently. 3-Partial/Moderate Assistance-helper does LESS THAN HALF the effort. [place] lifts, holds or supports trunk or limbs, but provides less than half the effort. 2-Substantial/Maximal Assistance-helper does MORE THAN HALF the effort. [place] lifts or holds trunk or limbs and provides more than half the effort. 8-Tqxybdtrm-jbyopp does ALL the effort. Patient does none of the effort to complete the activity. Or, the assistance of 2 or more helpers is required for the patient to complete the activity. If activity was not attempted, code reason: 7-Patient Refused. 9-Not Applicable-not attempted and the patient did not perform the activity befo re the current illness, exacerbation or injury. 10-Not Attempted due to Environmental Limitations-(lack of equipment, weather re straints, etc.). 88-Not Attempted due to Medical Conditions or Safety Concerns. Self Care: Independent Functional Cognition: Independent DME/Equipment: Grab Bars, Tall Toilet, Tub/Shower Drive Self: Yes OT Current Status Subjective Agreeable to therapy Mental Status/Objective Patient Orientation: Person, Place, Time, Situation Current Glasses/Contacts: Yes Dentures/Partials: Yes Hand Dominance: Right Upper Extremity ROM BUE ROM WFLS Upper Extremity Coordination intact Upper Extremity Sensation intact Upper Extremity Strength -4/5 grossly ADL-Treatment Eating (QC): 5 (clears) Oral Hygiene (QC): 5 Shower/Bathe Self (QC): 7 Upper Body Dressing (QC): 4 Lower Body Dressing (QC): 4 On/Off Footwear (QC): 4 Toileting Hygiene (QC): 4 Education OT Patient Education: Correct positioning, Exercise program, Instructions to caregiver, Modified ADL techniques, Progress toward Goal/Update tx plan, Purpose of tx/functional activities, Reviewed precautions, Rehab process, Safety issues, Transfer techniques, Use of adapted equipment Teaching Recipient: Patient, Family Teaching Methods: Demonstration Response to Teaching: Return Demonstration, Reinforcement Needed BIMS CAM BIMS Expression of Ideas and Wants: Without Difficulty Understanding Verbal Content: Understands Brief Interview/Mental Status: Yes IRF SHANI BIMS: IRF SHANI BIMS Response (Comments) Value Repitition of Three Words Three 3 Recalls Socks Yes, After Cueing (Wear) 1 Recalls Blue Yes, No Cue Required 2 Recalls Bed Yes, No Cue Required 2 Year Correct 3 Month Accurate Within 5 Days 2 Day Incorrect or No Answer 0 Total 13 Patient Normally Able to Recal: Current Session, That he/she in a hsp Should Staff Asses. Mental St.: No Memory/Recall Ability: Current Season CAM Mental Status Change/Baseline: 0 Inattention: 1 Disorganized thinkin Altered level of consciousness: 1 OT Press Clippings Cutter And Paster Goals Press Clippings Cutter And Paster Goals Eating (QC): 6 Oral Hygiene (QC): 6 Toileting Hygiene (QC): 6 Shower/Bathe Self (QC): 6 Upper Body Dressing (QC): 6 Lower Body Dressing (QC): 6 On/Off Footwear (QC): 6 1=Demonstrate adherence to instructed precautions during ADL tasks. 2=Patient will verbalize/demonstrate understanding of assistive devices/modifications for ADL. 3=Patient will improve strength/tolerance for activity to enable patient to perform ADL's. OT Education/Plan Problem List/Assessment Assessment: Decreased Activ Tolerance, Impaired Self-Care Skills Discharge Recommendations Plan/Recommendations: Continue POC Therapy Discharge Recommendati: Home & Family Treatment Plan/Plan of Care Treatment,Training & Education: Yes Patient would benefit from OT for education, treatment and training to promote independence in ADL's, mobility, safety and/or upper extremity function for ADL's. Plan of Care: ADL Retraining, Concurrent Therapy, Functional Mobility, Group Exercise/Act as Ind, UE Funct Exercise/Act Treatment Duration: May 30, 2023 Frequency: At least 5 of 7 days/Wk (IRF) Estimated Hrs Per Day: .25 hour per day Agreement: Yes Rehab Potential: Good Time Start Time: 14:26 Stop Time: 15:10 DATE: May 16, 2023 Total Time Billed (hr/min): 31 Billed Treatment Time [id number] OT NORMAM trevor, [id number] FA co treat ARSENIO BOWLING OT May 16, 2023 16:10
[2023-05-16] MEDS: TAMSULOSIN 0.4 MG (FLOMAX) CAP PO SCH (17:58)
[2023-05-16] MEDS: LACTATED RINGERS 1,000 ML 1,000 ML IV SCH (17:58)
[2023-05-16 18:26] VITALS: BP 121/58
[2023-05-16] MEDS: FAMOTIDINE INJ 20MG/2ML VIAL IVP SCH (21:17)
[2023-05-16] MEDS: PANTOPRAZOLE INJECTION 40 MG VIAL IV SCH (21:17)
[2023-05-17 05:35] LABS: HEMOGLOBIN 4.7 g/dL (11.5-16.0)
[2023-05-17 07:45] VITALS: BP 132/63
--- NOTE | 2023-05-17 08:19 | Progress Note - Surgery ---
Subjective Date Seen by a Provider: May 17, 2023 Time Seen by a Provider: 08:19 Subjective/Events-last exam Tolerating diet. Hgb stable at 4.7. No abdominal pain. Slightly fatigued. at bedside. Denies n/v fever sweats chills shortness of breath or chest pain at this time. Objective Exam Vital Signs Date Time Temp Pulse Resp B/P (MAP) Pulse Ox O2 Delivery O2 Flow Rate FiO2 05/17/23 07:00 84 05/17/23 01:00 89 05/16/23 20:55 Room Air 05/16/23 19:00 84 05/16/23 18:26 37.1 82 18 121/58 (79) 97 Room Air 05/16/23 15:00 37.8 88 16 128/58 (81) 97 Room Air 05/16/23 15:00 37.8 88 16 128/58 (81) 97 Room Air I & O 05/17/23 07:00 Intake Total 650 ml Output Total 1400 ml Balance -750 ml Capillary Refill : General Appearance: No Apparent Distress, WD/WN HEENT: PERRL/EOMI, Normal ENT Inspection Neck: Normal Inspection, Non Tender Respiratory: Chest Non Tender, No Accessory Muscle Use, No Respiratory Distress Cardiovascular: Regular Rate, Rhythm, No JVD Gastrointestinal: non tender, soft Extremity: Normal Inspection, Non Tender Neurologic/Psychiatric: Alert, Normal Mood/Affect Skin: Cool, Pallor Lymphatic: No Adenopathy Results Lab Laboratory Tests 05/17/23 05:10: Hemoglobin 4.7*L, Hematocrit 16*L Assessment/Plan Assessment/Plan Assessment/Plan GI bleed - upper, duodneal ulcer Anemia -acute blood loss- 4.7 this morning-stable Afib Custodial anticoagulation/antiplatelet S/p egd with injection of epinephrine to control bleeding duodenal ulcer Hold Eliquis & Plavix Will not accept any blood products. Follow hgb PPI Will need rescope if Hgb continues to fall -Hgb is stable, 4.7 this morning diet as tolerates MELISSA SELLERS DO May 17, 2023 08:19
[2023-05-17] MEDS: IRON SUCROSE 200 MG/10 ML VIAL IV SCH (09:27)
[2023-05-17] MEDS: PANTOPRAZOLE INJECTION 40 MG VIAL IV SCH ×2 (09:27→20:00)
[2023-05-17] MEDS: FOLIC ACID 5MG/ML 10 ML IV SCH (09:34)
[2023-05-17] MEDS: LACTATED RINGERS 1,000 ML 1,000 ML IV SCH (09:34)
[2023-05-17] MEDS ORDERED: cefTRIAXone IV/IM 1,000 MG in NS (IVPB) 50 ML 50 ML IV SCH (12:00)
[2023-05-17 12:18] VITALS: BP 118/67
--- NOTE | 2023-05-17 14:09 | Physical Therapy Progress Note ---
Therapy Progress Note The patient refused PT stating that she was being transferred to [facility]. ALBERTO TINAJERO PT May 17, 2023 14:09
[2023-05-17 16:25] VITALS: BP 112/64
[2023-05-17] MEDS: TAMSULOSIN 0.4 MG (FLOMAX) CAP PO SCH (18:02)
[2023-05-17] MEDS: FAMOTIDINE INJ 20MG/2ML VIAL IVP SCH (19:59)
--- NOTE | 2023-05-17 20:14 | Progress Note - Hospitalist ---
Subjective Subjective/Events-last exam Called to patient's room to discuss labs with patient. When I entered room the patient, , and her [facility] liason (Jose) were in the room. Jose reports that he has [address] [facility] that would be willing to take the patient and they would like her there so they can get her "built back up." When asked if there was anything in addition to k centra, epo, an EGD, Infed, Venofer, B12, folic acid, and finger stick blood draws the doctors there or the liason team recommended he said no. Pt mostly deferred to Jose for decisions. Informed them of my shared goal of getting her Hgb improved and if she would fe el more comfortable to be at [facility] I would be happy to attempt transfer. I asked for a name of one of the physicians they had spoken to to see if they would be willing to accept the patient in transfer. I was given the name of a Dr Feliz Reyes who is intervential radiology at but not that he would accept the patient in transfer. I called and relayed the case information, vitals, labs, treatments, and lack of IR and name of Dr Reyes to to attempt transfer. I received a call back and their physician adivsior had reviewed the case and declined transfer for "lack of medical necessity." Objective Exam Vital Signs Vital Signs Date Time Temp Pulse Resp B/P (MAP) Pulse Ox O2 Delivery O2 Flow Rate FiO2 05/17/23 19:01 77 05/17/23 16:25 37.5 17 112/64 (80) 97 Room Air Capillary Refill : General Appearance: No Apparent Distress Respiratory: No Accessory Muscle Use Neurologic/Psychiatric: Alert, Oriented x3 Results/Procedures Lab Laboratory Tests 05/17/23 05:10 Patient resulted labs reviewed. Assessment/Plan Assessment and Plan Assess & Plan/Chief Complaint Acute upper GI bleeding Duodenal ulcer with hemorrhage Acute blood loss anemia Chronic anticoagulation Paroxysmal AFib Sabianist Hgb 4.7 today- continue to trend- will do finger sticks Surgery following EGD 05/10 with duodenal ulcer bleed, s/p epinephrine IV PPI Hold Eliquis and Plavix Cardiology following s/p KCentra 05/10 s/p Infed 05/10 B12 injection x3 Folic acid daily Venofer Erythropoetin x2 Declines blood products due to being Sabianist Will do finger sticks for blood checks as able Updated Dr Calderón regarding patient/family/liasons request for transfer and o n [facility] denial of transfer as above Goals of care discussion/counseling Patient elects DNR Ureteral stent present Nephrolithiasis UTI Complete Rocephin HTN HLD Hold home meds DVT prophylaxis: SCDs only due to GI bleed LYLE KNOTT MD May 17, 2023 20:14
[2023-05-17 20:18] VITALS: BP 123/71
[2023-05-17 23:36] VITALS: BP 97/54
[2023-05-18 02:58] VITALS: BP 120/61
[2023-05-18] MEDS: LACTATED RINGERS 1,000 ML 1,000 ML IV SCH (05:00)
[2023-05-18 06:35] LABS: HEMOGLOBIN 5.5 g/dL (11.5-16.0)
[2023-05-18 07:59] VITALS: BP 145/67
--- NOTE | 2023-05-18 08:24 | Progress Note - Surgery ---
Subjective Date Seen by a Provider: May 18, 2023 Time Seen by a Provider: 08:23 Subjective/Events-last exam Patient feeling good. Hgb up to 5.5. Tolerating diet. No abdominal pain. Denies n/v fever sweats chills shortness of breath or chest pain. Objective Exam Vital Signs Date Time Temp Pulse Resp B/P (MAP) Pulse Ox O2 Delivery O2 Flow Rate FiO2 05/18/23 07:59 36.3 87 18 145/67 (93) 95 Room Air 05/18/23 07:00 79 05/18/23 02:58 37.0 88 18 120/61 (80) 94 Room Air 05/18/23 00:24 77 05/17/23 23:36 36.6 81 18 97/54 (68) 93 Room Air 05/17/23 20:18 37.4 82 16 123/71 (88) 94 Room Air 05/17/23 20:05 Room Air 05/17/23 19:01 77 05/17/23 16:25 37.5 83 17 112/64 (80) 97 Room Air 05/17/23 12:35 82 05/17/23 12:18 36.6 85 16 118/67 (84) 95 Room Air 05/17/23 09:00 Room Air I & O 05/18/23 07:00 Intake Total 1370 ml Output Total 1200 ml Balance 170 ml Capillary Refill : General Appearance: No Apparent Distress HEENT: PERRL/EOMI, Normal ENT Inspection Neck: Normal Inspection, Non Tender Respiratory: No Accessory Muscle Use Cardiovascular: Regular Rate, Rhythm, No JVD Gastrointestinal: non tender, soft Extremity: Normal Inspection, Non Tender Neurologic/Psychiatric: Alert, Oriented x3 Skin: Cool, Pallor Lymphatic: No Adenopathy Results Lab Laboratory Tests 05/18/23 06:28: Hemoglobin 5.5*L, Hematocrit 19*L Assessment/Plan Assessment/Plan Assessment/Plan GI bleed - upper, duodneal ulcer Anemia -acute blood loss- 5.5 this morning-stable Afib Correction anticoagulation/antiplatelet S/p egd with injection of epinephrine to control bleeding duodenal ulcer Hold Eliquis & Plavix Will not accept any blood products. Follow hgb PPI Will need rescope if Hgb continues to fall -Hgb is stable, 5.5 this morning diet as tolerates MELISSA SELLERS DO May 18, 2023 08:24
[2023-05-18] MEDS: PANTOPRAZOLE INJECTION 40 MG VIAL IV SCH ×2 (08:30→19:46)
[2023-05-18] MEDS: FOLIC ACID 5MG/ML 10 ML IV SCH (08:30)
[2023-05-18 11:37] VITALS: BP 125/67
[2023-05-18] MEDS ORDERED: ACETAMINOPHEN 500 MG TABLET PO PRN (11:45)
[2023-05-18 15:37] VITALS: BP 125/59
[2023-05-18] MEDS: TAMSULOSIN 0.4 MG (FLOMAX) CAP PO SCH (17:03)
[2023-05-18] MEDS: FAMOTIDINE INJ 20MG/2ML VIAL IVP SCH (19:46)
[2023-05-18 20:12] VITALS: BP 128/60
[2023-05-19] VITALS (7 sets, daily range): BP systolic 105–122; BP diastolic 55–66
[2023-05-19] MEDS: LACTATED RINGERS 1,000 ML 1,000 ML IV SCH ×2 (01:28→19:19)
[2023-05-19] MEDS: FOLIC ACID 5MG/ML 10 ML IV SCH (08:24)
[2023-05-19] MEDS: IRON SUCROSE 200 MG/10 ML VIAL IV SCH (08:24)
[2023-05-19] MEDS: PANTOPRAZOLE INJECTION 40 MG VIAL IV SCH ×2 (08:24→19:19)
--- NOTE | 2023-05-19 11:42 | Physical Therapy Daily Note ---
PT Daily Note-Current Subjective Pt found seated in recliner upon entry. Agreed to PT. Reports that she is feeling well and does not have any pain. Pain Section J - Health Conditions 1. Rarely or not at all 2. Occasionally 3. Frequently 4. Almost constantly 8. Unable to answer Pain Effect on Sleep: 1 Pain Interference with Therapy: 1 Pain Interference w/Day-to-Day: 1 Mental Status Patient Orientation: Person Attachments: Benson Catheter, IV Transfers SCALE: Activities may be completed with or without assistive devices. 1-Gltanbssaq-xbepkmy completes the activity by him/herself with no assistance from a helper. 5-Set-up or Clean-up Assistance-helper sets up or cleans up; patient completes activity. [place] assists only prior to or following the activity. 4-Supervision or Touching Assistance-helper provides verbal cues and/or touching/steadying and/or contact guard assistance as patient completes activity. Assistance may be provided throughout the activity or intermittently. 3-Partial/Moderate Assistance-helper does LESS THAN HALF the effort. [place] lifts, holds or supports trunk or limbs, but provides less than half the effort. 2-Substantial/Maximal Assistance-helper does MORE THAN HALF the effort. [place] lifts or holds trunk or limbs and provides more than half the effort. 0-Dzhtebdgj-ciduij does ALL the effort. Patient does none of the effort to complete the activity. Or, the assistance of 2 or more helpers is required for the patient to complete the activity. If activity was not attempted, code reason: 7-Patient Refused. 9-Not Applicable-not attempted and the patient did not perform the activity before the current illness, exacerbation or injury. 10-Not Attempted due to Environmental Limitations-(lack of equipment, weather restraints, etc.). 88-Not Attempted due to Medical Conditions or Safety Concerns. Sit to Stand (QC): 4 Weight Bearing Right Lower Extremity: Right Full Weight Bearing Left Lower Extremity: Left Full Weight Bearing Gait Training Does the Patient Walk?: Yes Distance: 200 Walk 10 feet (QC): 4 Walk 50 ft with 2 Turns(QC): 4 Walk 150 ft (QC): 4 Gait Persons Needed: 1 Gait Assistive Device: FWW Assessment Current Status: Good Progress Pt performed sit to stand transfer from recliner and edge of bed /c SBA for safety due to strength deficits. She also required verbal cues for proper hand placement to complete transfer. She ambulates /c use of a FWW up to 200 feet before returning to room. Pt reports dizziness after being seated on the edge of the bed and states that it will take her a little bit to "get her bearings." After a short seated rest break pt ambulated an additional 10 feet back to recliner. Pt required SBA during gait training due to balance deficits and required assistance /c management of IV pole. Pt left in recliner /c family present, call light in place, and all needs met post-treatment. Continue to progress pt per POC. PT Penitentiary Goals Penitentiary Goals PT Spindle Setter Goals Time Frame: May 30, 2023 Roll Left & Right (QC): 6 Sit to Lying (QC): 6 Lying-Sitting on Side/Bed(QC): 6 Sit to Stand (QC): 6 Chair/Egn-xc-Rhqth Xfer(QC): 6 Toilet Transfer (QC): 6 Car Transfer (QC): 6 Does the Patient Walk: Yes Walk 10 feet (QC): 6 Walk 50ft with 2 Turns (QC): 6 Walk 150 ft (QC): 6 Walking 10ft on Uneven Surface: 9 1 Step (curb) (QC): 9 4 Steps (QC): 9 12 Steps (QC): 9 Picking up an Object (QC): 6 Does the Pt use WC or Scooter?: No Wheel 50 feet with 2 turns (QC: 9 Type: N/A Wheel 150 feet: 9 Type: N/A PT Plan Treatment/Plan Treatment Plan: Continue Plan of Care Treatment Plan: Bed Mobility, Education, Functional Activity Kerry, Functional Strength, Group Therapy, Gait, Safety, Therapeutic Exercise, Transfers Treatment Duration: May 30, 2023 Frequency: 6 times per week Estimated Hrs Per Day: .25 hour per day Patient and/or Family Agrees t: Yes Time Time In: 0949 Time Out: 1007 DATE: May 19, 2023 Total Billed Treatment Time: 18 Total Billed Treatment 1 visit GT x 1 EDELMIRA RIBERA CANVAS [employer]ER May 19, 2023 11:42
--- NOTE | 2023-05-19 13:27 | Progress Note - Surgery ---
TOM ARRIAGA 05/19/23 1327: Subjective Date Seen by a Provider: May 19, 2023 Time Seen by a Provider: 10:15 Subjective/Events-last exam Patient is feeling well this morning. Has been ambulating. Denies nausea, vomiting, diarrhea, constipation, chest pain, SOB, blood in stool/dark colored stools, and abdominal pain. Currently on liquid diet. Hgb yesterday 5.5. No urine output recorded but gregorio at 300ml when I saw her. Objective Exam Vital Signs Date Time Temp Pulse Resp B/P (MAP) Pulse Ox O2 Delivery O2 Flow Rate FiO2 05/19/23 12:28 83 05/19/23 11:37 37.1 78 18 116/60 (78) 92 Room Air 05/19/23 08:57 Room Air 05/19/23 07:50 37.2 90 18 117/59 (78) 95 Room Air 05/19/23 07:13 95 05/19/23 05:07 95 05/19/23 05:06 38 05/19/23 04:04 37.3 84 18 105/55 (72) 94 Room Air 05/19/23 01:00 83 05/19/23 00:32 36.7 86 18 109/60 (76) 94 Room Air 05/18/23 20:12 36.6 85 16 128/60 (82) 96 Room Air 05/18/23 20:05 Room Air 05/18/23 19:00 86 05/18/23 15:37 37.3 77 18 125/59 (81) 96 I & O 05/19/23 07:00 Intake Total 1420 ml Output Total 2175 ml Balance -755 ml Capillary Refill : General Appearance: No Apparent Distress HEENT: PERRL/EOMI, Normal ENT Inspection Neck: Normal Inspection, Non Tender Respiratory: No Accessory Muscle Use Cardiovascular: Regular Rate, Rhythm, No JVD Gastrointestinal: non tender, soft Extremity: Normal Inspection, Non Tender Neurologic/Psychiatric: Alert, Oriented x3 Skin: Cool, Pallor Lymphatic: No Adenopathy Assessment/Plan Assessment/Plan Assessment/Plan GI bleed - upper, duodneal ulcer Anemia -acute blood loss- 5.5 this morning-stable Afib Mcfp anticoagulation/antiplatelet S/p egd with injection of epinephrine to control bleeding duodenal ulcer Hold Eliquis & Plavix Will not accept any blood products. Follow hgb PPI Will need rescope if Hgb continues to fall -Hgb is stable, 5.5 this morning diet as tolerates MELISSA CALDERÓN DO 05/19/23 1339: Subjective Subjective/Events-last exam Feeling good. Tolerating diet. No bleeding noticed by patient. On bland/ulcer diet. No new complaints. Denies n/v fever sweats chills shortness of breath or chest pain. Objective Exam General Appearance: No Apparent Distress, WD/WN HEENT: PERRL/EOMI, Normal ENT Inspection Neck: Normal Inspection, Non Tender Respiratory: Chest Non Tender, No Accessory Muscle Use Cardiovascular: Regular Rate, Rhythm, No JVD Gastrointestinal: non tender, soft Extremity: Normal Inspection, Non Tender Neurologic/Psychiatric: Alert, Oriented x3 Skin: Cool, Pallor Lymphatic: No Adenopathy Assessment/Plan Assessment/Plan Assessment/Plan GI bleed - upper, duodneal ulcer Anemia -acute blood loss- stable Afib Mcfp anticoagulation/antiplatelet S/p egd with injection of epinephrine to control bleeding duodenal ulcer Hold Eliquis & Plavix Will not accept any blood products. Follow hgb PPI Will need rescope if Hgb continues to fall -Hgb is stable diet as tolerates Supervisory-Addendum Brief Verification & Attestation Participated in pt care: history, MDM, physical Personally performed: exam, history, MDM, supervision of care Care discussed with: Medical Student Procedures: n/a Results interpretation: Verified all documentation Verification and Attestation of Medical Student E/M Service A medical student performed and documented this service in my presence. I reviewed and verified all information documented by the medical student and made modifications to such information, when appropriate. I personally performed the physical exam and medical decision making. Melissa Calderón, May 19, 2023,13:39 TOM ARRIAGA May 19, 2023 13:27 MELISSA CALDERÓN DO May 19, 2023 13:39
--- NOTE | 2023-05-19 14:39 | Occupational Ther Daily Note ---
OT Current Status-Daily Note Subjective Patient agreeable and pleasant with OT this session. OT discussed Rec therapy and patient declines that she is not interested in any of those things. Patient would like to get better so she can return to work in her [employer] shop Mental Status/Objective Patient Orientation: Person, Place, Time, Situation Attachments: Benson Catheter, IV ADL-Treatment Double layer of hospital gown as robe. Hair remains matted and patient declines OT grooming intervention Therapy Code Descriptions/Definitions Functional [place] Measure: 0=Not Assessed/NA 4=Minimal Assistance 1=Total Assistance 5=Supervision or Setup 2=Maximal Assistance 6=Modified [place] 3=Moderate Assistance 7=Complete IndependenceSCALE: Activities may be completed with or without assistive devices. 2-Itdegabrub-kzkpuog completes the activity by him/herself with no assistance from a helper. 5-Set-up or Clean-up Assistance-helper sets up or cleans up; patient completes activity. [place] assists only prior to or following the activity. 4-Supervision or Touching Assistance-helper provides verbal cues and/or touching/steadying and/or contact guard assistance as patient completes activity. Assistance may be provided throughout the activity or intermittently. 3-Partial/Moderate Assistance-helper does LESS THAN HALF the effort. [place] lifts, holds or supports trunk or limbs, but provides less than half the effort. 2-Substantial/Maximal Assistance-helper does MORE THAN HALF the effort. [place] lifts or holds trunk or limbs and provides more than half the effort. 3-Pfhwggthk-aawwrl does ALL the effort. Patient does none of the effort to complete the activity. Or, the assistance of 2 or more helpers is required for the patient to complete the activity. If activity was not attempted, code reason: 7-Patient Refused. 9-Not Applicable-not attempted and the patient did not perform the activity before the current illness, exacerbation or injury. 10-Not Attempted due to Environmental Limitations-(lack of equipment, weather restraints, etc.). 88-Not Attempted due to Medical Conditions or Safety Concerns. Eating (QC): 5 Oral Hygiene (QC): 5 Upper Body Dressing (QC): 4 Lower Body Dressing (QC): 5 On/Off Footwear: 5 Toileting Hygiene (QC): 5 Toilet Transfer (QC): 5 (FWW, GBs) Other Treatment Simple Sitting exercises for endurance and sustaining strength. Patient tolerated well Education OT Patient Education: Correct positioning, Exercise program, Modified ADL techniques, Progress toward Goal/Update tx plan, Purpose of tx/functional activities, Reviewed precautions, Rehab process, Safety issues, Transfer techni ques Teaching Recipient: Patient Teaching Methods: Demonstration, Discussion Response to Teaching: Return Demonstration, Reinforcement Needed OT Skilled Nursing Goals Calender Operator Helper Goals Acute change in mental status: 0 Inattention: 1 Disorganized thinkin Altered level of consciousness: 1 Eating (QC): 6 Oral Hygiene (QC): 6 Toileting Hygiene (QC): 6 Shower/Bathe Self (QC): 6 Upper Body Dressing (QC): 6 Lower Body Dressing (QC): 6 On/Off Footwear (QC): 6 1=Demonstrate adherence to instructed precautions during ADL tasks. 2=Patient will verbalize/demonstrate understanding of assistive devices/modifications for ADL. 3=Patient will improve strength/tolerance for activity to enable patient to p erform ADL's. OT Education/Plan Problem List/Assessment Assessment: Decreased Activ Tolerance Discharge Recommendations Plan/Recommendations: Continue POC Treatment Plan/Plan of Care Treatment,Training & Education: Yes Patient would benefit from OT for education, treatment and training to promote independence in ADL's, mobility, safety and/or upper extremity function for ADL's. Plan of Care: ADL Retraining, Concurrent Therapy, Functional Mobility, Group Exercise/Act as Ind, UE Funct Exercise/Act Treatment Duration: May 30, 2023 Frequency: At least 5 of 7 days/Wk (IRF) Estimated Hrs Per Day: .25 hour per day Agreement: Yes Rehab Potential: Good Time Start Time: 13:40 Stop Time: 13:56 DATE: May 19, 2023 Total Time Billed (hr/min): 16 Billed Treatment Time EX 16 min ARSENIO BOWLING OT May 19, 2023 14:39
[2023-05-19] MEDS: TAMSULOSIN 0.4 MG (FLOMAX) CAP PO SCH (18:06)
[2023-05-19] MEDS: FAMOTIDINE INJ 20MG/2ML VIAL IVP SCH (19:19)
[2023-05-20 03:37] VITALS: BP 125/65
[2023-05-20 07:11] VITALS: BP 122/56
[2023-05-20] MEDS: FOLIC ACID 5MG/ML 10 ML IV SCH (08:10)
[2023-05-20] MEDS: PANTOPRAZOLE INJECTION 40 MG VIAL IV SCH (08:11)
[2023-05-20 08:13] LABS: HEMOGLOBIN 5.8 g/dL (11.5-16.0)
--- NOTE | 2023-05-20 08:25 | Progress Note - Surgery ---
TOM ARRIAGA 05/20/23 0825: Subjective Date Seen by a Provider: May 20, 2023 Time Seen by a Provider: 07:35 Subjective/Events-last exam Pt states that she is feeling well and has been ambulating more. Hgb has increased to 5.8 today from 5.5 on 05/18. Denies fever, abdominal pain, nausea, vomiting, diarrhea, constipation, chest pain, SOA, dysuria. Review of Systems General: No Chills, No Night Sweats HEENT: No Head Aches, No Sinus Congestion Pulmonary: No Dyspnea, No Cough Cardiovascular: No: Chest Pain, Palpitations Gastrointestinal: No: Nausea, Vomiting, Abdominal Pain Genitourinary: No Dysuria, No Frequency Musculoskeletal: No: neck pain, shoulder pain Neurological: No: Weakness, Numbness Objective Exam Vital Signs Date Time Temp Pulse Resp B/P (MAP) Pulse Ox O2 Delivery O2 Flow Rate FiO2 05/20/23 07:23 81 05/20/23 07:11 36.3 80 18 122/56 (78) 94 Room Air 05/20/23 03:37 37.0 83 18 125/65 (85) 94 Room Air 05/20/23 01:00 82 05/19/23 23:05 36.2 83 18 122/58 (79) 93 Room Air 05/19/23 19:39 37.1 85 18 121/56 (77) 92 Room Air 05/19/23 19:28 Room Air 05/19/23 19:00 82 05/19/23 16:09 37.3 85 19 107/66 (80) 93 Room Air 05/19/23 12:28 83 05/19/23 11:37 37.1 78 18 116/60 (78) 92 Room Air 05/19/23 08:57 Room Air I & O 05/20/23 07:00 Intake Total 2300 ml Output Total 1925 ml Balance 375 ml Capillary Refill : General Appearance: No Apparent Distress, WD/WN HEENT: PERRL/EOMI, Normal ENT Inspection Neck: Normal Inspection, Non Tender Respiratory: Chest Non Tender, No Accessory Muscle Use Cardiovascular: Regular Rate, Rhythm, No JVD Gastrointestinal: non tender, soft Extremity: Normal Inspection, Non Tender Neurologic/Psychiatric: Alert, Oriented x3 Skin: Cool, Pallor Lymphatic: No Adenopathy Results Lab Laboratory Tests 05/20/23 07:56: Hemoglobin 5.8*L, Hematocrit 19*L Assessment/Plan Assessment/Plan Assessment/Plan GI bleed - upper, duodneal ulcer Anemia -acute blood loss- stable Afib [facility] anticoagulation/antiplatelet S/p egd with injection of epinephrine to control bleeding duodenal ulcer Hold Eliquis & Plavix Will not accept any blood products. Follow hgb PPI Will need rescope if Hgb continues to fall -Hgb is stable at 5.8 diet as tolerates MELISSA CALDERÓN DO 05/20/232125: Subjective Subjective/Events-last exam Hgb up to 5.8. No abdominal pain. Tolerating diet. No new complaints. Denies n/v fever sweats chills shortness of breath or chest pain. Objective Exam General Appearance: No Apparent Distress, WD/WN HEENT: PERRL/EOMI, Normal ENT Inspection Neck: Normal Inspection, Non Tender Respiratory: Chest Non Tender, No Accessory Muscle Use, No Respiratory Distress Cardiovascular: Regular Rate, Rhythm, No JVD Gastrointestinal: non tender, soft Extremity: Normal Inspection, Non Tender Neurologic/Psychiatric: Alert, Oriented x3 Skin: Cool, Pallor Lymphatic: No Adenopathy Assessment/Plan Assessment/Plan Assessment/Plan GI bleed - upper, duodneal ulcer Anemia -acute blood loss- stable Afib [facility] anticoagulation/antiplatelet S/p egd with injection of epinephrine to control bleeding duodenal ulcer Hold Eliquis & Plavix Will not accept any blood products. Follow hgb PPI Will need rescope if Hgb continues to fall -Hgb is stable at 5.8 diet as tolerates will plan on EGD as outpatient to reevalute the area and biopsy will sign off at this time with planned outpatient follow up, call if needed. Supervisory-Addendum Brief Verification & Attestation Participated in pt care: history, MDM, physical Personally performed: exam, history, MDM, supervision of care Care discussed with: Medical Student Procedures: n/a Results interpretation: Verified all documentation Verification and Attestation of Medical Student E/M Service A medical student performed and documented this service in my presence. I reviewed and verified all information documented by the medical student and made modifications to such information, when appropriate. I personally performed the physical exam and medical decision making. Melissa Calderón, May 20, 2023,21:26 TOM ARRIAGA May 20, 2023 08:25 MELISSA CALDERÓN DO May 20, 2023 21:26
--- NOTE | 2023-05-20 11:32 | Progress Note - Hospitalist ---
Subjective HPI/CC On Admission Date Seen by Provider: May 20, 2023 Time Seen by Provider: 09:55 Subjective/Events-last exam She is feeling well. She has no complaints. Objective Exam Vital Signs Vital Signs Date Time Temp Pulse Resp B/P (MAP) Pulse Ox O2 Delivery O2 Flow Rate FiO2 05/20/23 09:00 Room Air 05/20/23 07:23 81 05/20/23 07:11 36.3 18 122/56 (78) 94 Capillary Refill : General Appearance: No Apparent Distress, WD/WN Respiratory: Lungs Clear, No Respiratory Distress Cardiovascular: Regular Rate, Rhythm, No Murmur Gastrointestinal: Normal Bowel Sounds, Soft Extremity: Normal Inspection, No Pedal Edema Neurologic/Psychiatric: Alert, Normal Mood/Affect Skin: Normal Color, Warm/Dry Results/Procedures Lab Laboratory Tests 05/20/23 07:56 Patient resulted labs reviewed. Assessment/Plan Assessment and Plan Assess & Plan/Chief Complaint Acute upper GI bleeding Duodenal ulcer with hemorrhage Acute blood loss anemia Chronic anticoagulation Paroxysmal AFib [place] Hgb 5.8, improving Surgery following EGD 05/10 with duodenal ulcer bleed, s/p epinephrine IV PPI Hold Eliquis and Plavix Cardiology following s/p KCentra 05/10 s/p Infed 05/10 B12 injection x3 Folic acid daily, transition to oral IV Venofer Erythropoetin x2 Declines blood products due to being [employer] Will do finger sticks for blood checks as able Debility PT/OT Ureteral stent present Nephrolithiasis UTI, resolved s/p Rocephin HTN HLD Hold home meds DVT prophylaxis: SCDs only due to GI bleed Diagnosis/Problems Diagnosis/Problems (1) ABLA (acute blood loss anemia) Status: Acute (2) GI bleed Status: Acute (3) Duodenal ulcer with hemorrhage Status: Acute (4) Paroxysmal atrial fibrillation Status: Chronic (5) Ureteral stent present Status: Chronic (6) UTI (urinary tract infection) Status: Acute (7) Refusal of blood transfusions as patient is [employer] Status: Acute (8) Debility Status: Acute STEVE CHANEL MD May 20, 2023 11:32
[2023-05-20 11:40] VITALS: BP 117/58
[2023-05-20] MEDS: LACTATED RINGERS 1,000 ML 1,000 ML IV SCH (14:44)
--- NOTE | 2023-05-20 15:26 | Occ Therapy Progress Note ---
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 Patient declines OT today ARSENIO BOWLING OT May 20, 2023 15:26
--- NOTE | 2023-05-20 15:30 | Physical Therapy Daily Note ---
PT Daily Note-Current Subjective Patient lying supine in bed upon PT arrival, in room, agreeable to treatment. Patient rates pain at 0/10 currently. Pain Section J - Health Conditions 1. Rarely or not at all 2. Occasionally 3. Frequently 4. Almost constantly 8. Unable to answer Pain Effect on Sleep: 1 Pain Interference with Therapy: 1 Pain Interference w/Day-to-Day: 1 Transfers SCALE: Activities may be completed with or without assistive devices. 5-Inuxqngfni-vxnblkn completes the activity by him/herself with no assistance from a helper. 5-Set-up or Clean-up Assistance-helper sets up or cleans up; patient completes activity. [place] assists only prior to or following the activity. 4-Supervision or Touching Assistance-helper provides verbal cues and/or touching/steadying and/or contact guard assistance as patient completes activity. Assistance may be provided throughout the activity or intermittently. 3-Partial/Moderate Assistance-helper does LESS THAN HALF the effort. [place] lifts, holds or supports trunk or limbs, but provides less than half the effort. 2-Substantial/Maximal Assistance-helper does MORE THAN HALF the effort. [place] lifts or holds trunk or limbs and provides more than half the effort. 2-Ckjxarkgd-cbmsam does ALL the effort. Patient does none of the effort to complete the activity. Or, the assistance of 2 or more helpers is required for the patient to complete the activity. If activity was not attempted, code reason: 7-Patient Refused. 9-Not Applicable-not attempted and the patient did not perform the activity before the current illness, exacerbation or injury. 10-Not Attempted due to Environmental Limitations-(lack of equipment, weather restraints, etc.). 88-Not Attempted due to Medical Conditions or Safety Concerns. Roll Left & Right (QC): 4 Sit to Lying (QC): 4 Lying to Sitting/Side of Bed(Q: 4 Sit to Stand (QC): 4 Chair/Rfe-aq-Adjib Xfer(QC): 4 Weight Bearing Right Lower Extremity: Right Full Weight Bearing Left Lower Extremity: Left Full Weight Bearing Gait Training Does the Patient Walk?: Yes Distance: 250' Walk 10 feet (QC): 4 Walk 50 ft with 2 Turns(QC): 4 Walk 150 ft (QC): 4 Gait Persons Needed: 1 Gait Assistive Device: FWW Assessment Current Status: Fair Progress Patient performs all bed mobility and transfers with SBA. Patient ambulates 250 feet with FWW, with CGA and verbal cues for safety, progression, posture and conservation of energy. Patient in chair post treatment with all needs met, nursing notified, call light in hand and in the room. PT Correction Goals Pipe Roller Goals PT Pipe Roller Goals Time Frame: May 30, 2023 Roll Left & Right (QC): 6 Sit to Lying (QC): 6 Lying-Sitting on Side/Bed(QC): 6 Sit to Stand (QC): 6 Chair/Mtl-uu-Ztfin Xfer(QC): 6 Toilet Transfer (QC): 6 Car Transfer (QC): 6 Does the Patient Walk: Yes Walk 10 feet (QC): 6 Walk 50ft with 2 Turns (QC): 6 Walk 150 ft (QC): 6 Walking 10ft on Uneven Surface: 9 1 Step (curb) (QC): 9 4 Steps (QC): 9 12 Steps (QC): 9 Picking up an Object (QC): 6 Does the Pt use WC or Scooter?: No Wheel 50 feet with 2 turns (QC: 9 Type: N/A Wheel 150 feet: 9 Type: N/A PT Plan Treatment/Plan Treatment Plan: Continue Plan of Care Treatment Plan: Bed Mobility, Education, Functional Activity Kerry, Functional Strength, Group Therapy, Gait, Safety, Therapeutic Exercise, Transfers Treatment Duration: May 30, 2023 Frequency: 6 times per week Estimated Hrs Per Day: .25 hour per day Patient and/or Family Agrees t: Yes Safety Risks/Education Patient Education: Gait Training, Transfer Techniques Teaching Recipient: Patient Teaching Methods: Demonstration, Discussion Response to Teaching: Verbalize Understanding, Return Demonstration Time Time In: 1353 Time Out: 1410 DATE: May 20, 2023 Total Billed Treatment Time: 17 Total Billed Treatment Visit, GT BARI AHUMADA PT May 20, 2023 15:30
[2023-05-20 17:00] VITALS: BP 137/63
[2023-05-20] MEDS: TAMSULOSIN 0.4 MG (FLOMAX) CAP PO SCH (17:29)
[2023-05-20 19:04] VITALS: BP 110/48
[2023-05-20] MEDS: FAMOTIDINE 20 MG TABLET PO SCH (19:06)
[2023-05-20] MEDS: PANTOPRAZOLE 40 MG TABLET PO SCH (19:06)
[2023-05-20 23:41] VITALS: BP 107/51
[2023-05-21 03:36] VITALS: BP 124/60
[2023-05-21 08:11] VITALS: BP 139/64
[2023-05-21] MEDS: PANTOPRAZOLE 40 MG TABLET PO SCH ×2 (08:11→19:11)
[2023-05-21] MEDS: FOLIC ACID 1 MG TAB PO SCH (08:11)
[2023-05-21] MEDS: LACTATED RINGERS 1,000 ML 1,000 ML IV SCH (10:17)
--- NOTE | 2023-05-21 10:25 | Physical Therapy Daily Note ---
PT Daily Note-Current Subjective Pt is agreeable to PT. Denies pain. Pain Numeric Pain Scale: 0-No Pain Location: No Pain Reported Section J - Health Conditions 1. Rarely or not at all 2. Occasionally 3. Frequently 4. Almost constantly 8. Unable to answer Pain Effect on Sleep: 1 Pain Interference with Therapy: 1 Pain Interference w/Day-to-Day: 1 Mental Status Attachments: IV Transfers SCALE: Activities may be completed with or without assistive devices. 6-Jrvvsdxdbn-ormvgjj completes the activity by him/herself with no assistance from a helper. 5-Set-up or Clean-up Assistance-helper sets up or cleans up; patient completes activity. [place] assists only prior to or following the activity. 4-Supervision or Touching Assistance-helper provides verbal cues and/or touching/steadying and/or contact guard assistance as patient completes activity. Assistance may be provided throughout the activity or intermittently. 3-Partial/Moderate Assistance-helper does LESS THAN HALF the effort. [place] lifts, holds or supports trunk or limbs, but provides less than half the effort. 2-Substantial/Maximal Assistance-helper does MORE THAN HALF the effort. [place] lifts or holds trunk or limbs and provides more than half the effort. 0-Wmwygpppq-chgmba does ALL the effort. Patient does none of the effort to complete the activity. Or, the assistance of 2 or more helpers is required for the patient to complete the activity. If activity was not attempted, code reason: 7-Patient Refused. 9-Not Applicable-not attempted and the patient did not perform the activity before the current illness, exacerbation or injury. 10-Not Attempted due to Environmental Limitations-(lack of equipment, weather restraints, etc.). 88-Not Attempted due to Medical Conditions or Safety Concerns. Lying to Sitting/Side of Bed(Q: 4 Sit to Stand (QC): 4 Weight Bearing Right Lower Extremity: Right Full Weight Bearing Left Lower Extremity: Left Full Weight Bearing Gait Training Does the Patient Walk?: Yes Distance: 350ft Walk 10 feet (QC): 4 Walk 50 ft with 2 Turns(QC): 4 Walk 150 ft (QC): 4 Gait Persons Needed: 1 Gait Assistive Device: FWW Wheelchair Training Does the Pt Use a Wheelchair?: No Wheel 50 ft with 2 turns (QC): 9 Wheel 150 ft (QC): 9 Type of Wheelchair: N/A Treatments Pt completed bed mobility tasks with SBA/Mod I. Pt completed functional transfers with SBA and v/c for safety and technique. Pt ambulated 350ft with the FWW and CGA/SBA. After treatment session, pt was sitting EOB with call light in reach, spouse present, and all needs met. Assessment Current Status: Good Progress Pt tolerated PT well, with good effort PT Fci Goals Fci Goals PT Harp Regulator Goals Time Frame: May 30, 2023 Roll Left & Right (QC): 6 Sit to Lying (QC): 6 Lying-Sitting on Side/Bed(QC): 6 Sit to Stand (QC): 6 Chair/Csj-sf-Ddlyx Xfer(QC): 6 Toilet Transfer (QC): 6 Car Transfer (QC): 6 Does the Patient Walk: Yes Walk 10 feet (QC): 6 Walk 50ft with 2 Turns (QC): 6 Walk 150 ft (QC): 6 Walking 10ft on Uneven Surface: 9 1 Step (curb) (QC): 9 4 Steps (QC): 9 12 Steps (QC): 9 Picking up an Object (QC): 6 Does the Pt use WC or Scooter?: No Wheel 50 feet with 2 turns (QC: 9 Type: N/A Wheel 150 feet: 9 Type: N/A PT Plan Problem List Problem List: Activity Tolerance, Functional Strength, Safety, Balance, Gait, Transfer, Bed Mobility, ROM Treatment/Plan Treatment Plan: Continue Plan of Care Treatment Plan: Bed Mobility, Education, Functional Activity Kerry, Functional Strength, Group Therapy, Gait, Safety, Therapeutic Exercise, Transfers Treatment Duration: May 30, 2023 Frequency: 6 times per week Estimated Hrs Per Day: .25 hour per day Patient and/or Family Agrees t: Yes Safety Risks/Education Patient Education: Gait Training, Transfer Techniques, Correct Positioning, Safety Issues Teaching Recipient: Patient Teaching Methods: Demonstration, Discussion Response to Teaching: Reinforcement Needed Discharge Recommendations Therapy Discharge Recommendati: Post Acute PT Time Time In: 915 Time Out: 935 DATE: May 21, 2023 Total Billed Treatment Time: 20 Total Billed Treatment 20 min 1 visit GT x 1 PIYUSH COLLINS PT May 21, 2023 10:25
[2023-05-21 11:21] VITALS: BP 120/68
--- NOTE | 2023-05-21 12:51 | Occupational Ther Daily Note ---
OT Current Status-Daily Note Subjective Agreeable to OT Mental Status/Objective Patient Orientation: Person, Place, Time, Situation Attachments: Benson Catheter ADL-Treatment Therapy Code Descriptions/Definitions Functional [place] Measure: 0=Not Assessed/NA 4=Minimal Assistance 1=Total Assistance 5=Supervision or Setup 2=Maximal Assistance 6=Modified [place] 3=Moderate Assistance 7=Complete IndependenceSCALE: Activities may be completed with or without assistive devices. 1-Aqpkopuxkr-ecwxdmn completes the activity by him/herself with no assistance from a helper. 5-Set-up or Clean-up Assistance-helper sets up or cleans up; patient completes activity. [place] assists only prior to or following the activity. 4-Supervision or Touching Assistance-helper provides verbal cues and/or touching/steadying and/or contact guard assistance as patient completes activity. Assistance may be provided throughout the activity or intermittently. 3-Partial/Moderate Assistance-helper does LESS THAN HALF the effort. [place] lifts, holds or supports trunk or limbs, but provides less than half the effort. 2-Substantial/Maximal Assistance-helper does MORE THAN HALF the effort. [place] lifts or holds trunk or limbs and provides more than half the effort. 1-Twudsdgwp-onaypl does ALL the effort. Patient does none of the effort to complete the activity. Or, the assistance of 2 or more helpers is required for the patient to complete the activity. If activity was not attempted, code reason: 7-Patient Refused. 9-Not Applicable-not attempted and the patient did not perform the activity before the current illness, exacerbation or injury. 10-Not Attempted due to Environmental Limitations-(lack of equipment, weather restraints, etc.). 88-Not Attempted due to Medical Conditions or Safety Concerns. Eating (QC): 6 Oral Hygiene (QC): 6 (sitting) Upper Body Dressing (QC): 5 Lower Body Dressing (QC): 5 On/Off Footwear: 5 Toileting Hygiene (QC): 5 Toilet Transfer (QC): 5 Education OT Patient Education: Correct positioning, Modified ADL techniques, Progress toward Goal/Update tx plan, Purpose of tx/functional activities, Reviewed precautions, Rehab process, Safety issues, Transfer techniques Teaching Recipient: Patient, Family Teaching Methods: Discussion Response to Teaching: Return Demonstration OT It Technical Specialist Goals It Technical Specialist Goals Acute change in mental status: 0 Inattention: 1 Disorganized thinkin Altered level of consciousness: 1 Eating (QC): 6 Oral Hygiene (QC): 6 Toileting Hygiene (QC): 6 Shower/Bathe Self (QC): 6 Upper Body Dressing (QC): 6 Lower Body Dressing (QC): 6 On/Off Footwear (QC): 6 1=Demonstrate adherence to instructed precautions during ADL tasks. 2=Patient will verbalize/demonstrate understanding of assistive devices/modifications for ADL. 3=Patient will improve strength/tolerance for activity to enable patient to perform ADL's. OT Education/Plan Discharge Recommendations Plan/Recommendations: Continue POC Treatment Plan/Plan of Care Patient would benefit from OT for education, treatment and training to promote independence in ADL's, mobility, safety and/or upper extremity function for ADL's. Plan of Care: ADL Retraining, Concurrent Therapy, Functional Mobility, Group Exercise/Act as Ind, UE Funct Exercise/Act Treatment Duration: May 30, 2023 Frequency: At least 5 of 7 days/Wk (IRF) Estimated Hrs Per Day: .25 hour per day Agreement: Yes Rehab Potential: Good Time Start Time: 09:15 Stop Time: 09:35 DATE: May 21, 2023 Total Time Billed (hr/min): 20 Billed Treatment Time ADL 20 min ARSENIO BOWLING OT May 21, 2023 12:51
[2023-05-21 17:13] VITALS: BP 128/69
[2023-05-21] MEDS: TAMSULOSIN 0.4 MG (FLOMAX) CAP PO SCH (17:31)
[2023-05-21] MEDS: FAMOTIDINE 20 MG TABLET PO SCH (19:10)
[2023-05-21 19:11] VITALS: BP 136/83
[2023-05-21 23:34] VITALS: BP 112/63
[2023-05-22 03:11] VITALS: BP 118/53
[2023-05-22] MEDS: LACTATED RINGERS 1,000 ML 1,000 ML IV SCH (04:05)
[2023-05-22 05:38] LABS: HEMOGLOBIN 5.4 g/dL (11.5-16.0)
[2023-05-22 08:13] VITALS: BP 123/73
[2023-05-22] MEDS: FOLIC ACID 1 MG TAB PO SCH (08:26)
[2023-05-22] MEDS: PANTOPRAZOLE 40 MG TABLET PO SCH ×2 (08:26→20:47)
--- NOTE | 2023-05-22 10:02 | Physical Therapy Daily Note ---
PT Daily Note-Current Subjective Patient agrees to therapy. Pain Section J - Health Conditions 1. Rarely or not at all 2. Occasionally 3. Frequently 4. Almost constantly 8. Unable to answer Pain Effect on Sleep: 1 Pain Interference with Therapy: 1 Pain Interference w/Day-to-Day: 1 Transfers SCALE: Activities may be completed with or without assistive devices. 6-Wembvvkdiv-fjmwzai completes the activity by him/herself with no assistance from a helper. 5-Set-up or Clean-up Assistance-helper sets up or cleans up; patient completes activity. [place] assists only prior to or following the activity. 4-Supervision or Touching Assistance-helper provides verbal cues and/or touching/steadying and/or contact guard assistance as patient completes activity. Assistance may be provided throughout the activity or intermittently. 3-Partial/Moderate Assistance-helper does LESS THAN HALF the effort. [place] lifts, holds or supports trunk or limbs, but provides less than half the effort. 2-Substantial/Maximal Assistance-helper does MORE THAN HALF the effort. [place] lifts or holds trunk or limbs and provides more than half the effort. 4-Qlaahbwny-fmbzks does ALL the effort. Patient does none of the effort to complete the activity. Or, the assistance of 2 or more helpers is required for the patient to complete the activity. If activity was not attempted, code reason: 7-Patient Refused. 9-Not Applicable-not attempted and the patient did not perform the activity before the current illness, exacerbation or injury. 10-Not Attempted due to Environmental Limitations-(lack of equipment, weather restraints, etc.). 88-Not Attempted due to Medical Conditions or Safety Concerns. Sit to Stand (QC): 5 Weight Bearing Right Lower Extremity: Right Full Weight Bearing Left Lower Extremity: Left Full Weight Bearing Gait Training Distance: 300' Walk 10 feet (QC): 5 Walk 50 ft with 2 Turns(QC): 5 Walk 150 ft (QC): 5 Gait Assistive Device: FWW safe and functional with no deviation Assessment Patient tolerated treatment well and remains up in recliner with needs met. Patient is currently modified independent with all functional mobility. Patient's only complaint is a dry mouth. PT Care Home Goals Care Home Goals PT Care Home Goals Time Frame: May 30, 2023 Roll Left & Right (QC): 6 Sit to Lying (QC): 6 Lying-Sitting on Side/Bed(QC): 6 Sit to Stand (QC): 6 Chair/Smf-ww-[place] Xfer(QC): 6 Toilet Transfer (QC): 6 Car Transfer (QC): 6 Does the Patient Walk: Yes Walk 10 feet (QC): 6 Walk 50ft with 2 Turns (QC): 6 Walk 150 ft (QC): 6 Walking 10ft on Uneven Surface: 9 1 Step (curb) (QC): 9 4 Steps (QC): 9 12 Steps (QC): 9 Picking up an Object (QC): 6 Does the Pt use WC or Scooter?: No Wheel 50 feet with 2 turns (QC: 9 Type: N/A Wheel 150 feet: 9 Type: N/A PT Plan Treatment/Plan Treatment Plan: Continue Plan of Care Treatment Plan: Bed Mobility, Education, Functional Activity Kerry, Functional Strength, Group Therapy, Gait, Safety, Therapeutic Exercise, Transfers Treatment Duration: May 30, 2023 Frequency: 6 times per week Estimated Hrs Per Day: .25 hour per day Patient and/or Family Agrees t: Yes Time Time In: 943 Time Out: 958 DATE: May 22, 2023 Total Billed Treatment Time: 15 Total Billed Treatment 1 visit FA 15 min ([place] OT) SHIREEN GOMEZ PT May 22, 2023 10:02
--- NOTE | 2023-05-22 11:14 | Occupational Ther Daily Note ---
OT Current Status-Daily Note Subjective Agreeable to participate, OT co tx w/ PT for endurance and safety, Patient requested during ambulation , OT facilitated safety w/ transportation objects Mental Status/Objective Patient Orientation: Person, Place, Time, Situation ADL-Treatment Therapy Code Descriptions/Definitions Functional [place] Measure: 0=Not Assessed/NA 4=Minimal Assistance 1=Total Assistance 5=Supervision or Setup 2=Maximal Assistance 6=Modified [place] 3=Moderate Assistance 7=Complete IndependenceSCALE: Activities may be completed with or without assistive devices. 7-Ovbmldqutn-slkngmd completes the activity by him/herself with no assistance from a helper. 5-Set-up or Clean-up Assistance-helper sets up or cleans up; patient completes activity. [place] assists only prior to or following the activity. 4-Supervision or Touching Assistance-helper provides verbal cues and/or touching/steadying and/or contact guard assistance as patient completes activity. Assistance may be provided throughout the activity or intermittently. 3-Partial/Moderate Assistance-helper does LESS THAN HALF the effort. [place] lifts, holds or supports trunk or limbs, but provides less than half the effort. 2-Substantial/Maximal Assistance-helper does MORE THAN HALF the effort. [place] lifts or holds trunk or limbs and provides more than half the effort. 7-Hnlyfhtct-mvsycj does ALL the effort. Patient does none of the effort to complete the activity. Or, the assistance of 2 or more helpers is required for the patient to complete the activity. If activity was not attempted, code reason: 7-Patient Refused. 9-Not Applicable-not attempted and the patient did not perform the activity before the current illness, exacerbation or injury. 10-Not Attempted due to Environmental Limitations-(lack of equipment, weather restraints, etc.). 88-Not Attempted due to Medical Conditions or Safety Concerns. Eating (QC): 6 Toileting Hygiene (QC): 5 (Kelley HARLEY'[place]) Toilet Transfer (QC): 5 Other Treatment Ambulation w/ transportation of objects using FWW, Education OT Patient Education: Correct positioning, Progress toward Goal/Update tx plan, Purpose of tx/functional activities, Reviewed precautions, Rehab process, Safety issues, Transfer techniques Teaching Recipient: Patient Teaching Methods: Demonstration, Discussion Response to Teaching: Verbalize Understanding OT [facility] Goals Christmas Tree Farmer Goals Acute change in mental status: 0 Inattention: 1 Disorganized thinkin Altered level of consciousness: 1 Eating (QC): 6 Oral Hygiene (QC): 6 Toileting Hygiene (QC): 6 Shower/Bathe Self (QC): 6 Upper Body Dressing (QC): 6 Lower Body Dressing (QC): 6 On/Off Footwear (QC): 6 1=Demonstrate adherence to instructed precautions during ADL tasks. 2=Patient will verbalize/demonstrate understanding of assistive devices/modifications for ADL. 3=Patient will improve strength/tolerance for activity to enable patient to perform ADL's. OT Education/Plan Problem List/Assessment Assessment: Decreased Activ Tolerance, Decreased Safety Aware, Impaired Cognition, Impaired Coordination, Impaired Funct Balance, Impaired Self-Care Skills, Restricted Funct UE ROM Discharge Recommendations Plan/Recommendations: Continue POC Treatment Plan/Plan of Care Treatment,Training & Education: Yes Patient would benefit from OT for education, treatment and training to promote independence in ADL's, mobility, safety and/or upper extremity function for ADL's. Plan of Care: ADL Retraining, Concurrent Therapy, Functional Mobility, Group Exercise/Act as Ind, UE Funct Exercise/Act Treatment Duration: May 30, 2023 Frequency: At least 5 of 7 days/Wk (IRF) Estimated Hrs Per Day: .25 hour per day Agreement: Yes Rehab Potential: Good Time Start Time: 09:43 Stop Time: 09:58 DATE: May 22, 2023 Total Time Billed (hr/min): 15 Billed Treatment Time FA 15 min ARSENIO BOWLING OT May 22, 2023 11:14
[2023-05-22 12:04] VITALS: BP 114/65
--- NOTE | 2023-05-22 14:32 | Progress Note - Hospitalist ---
Subjective HPI/CC On Admission Date Seen by Provider: May 22, 2023 Time Seen by Provider: 11:05 Subjective/Events-last exam She is sitting in her chair. She has no complaints. She had her gregorio taken out and was able to pee. She is doing more with therapy. She isn't eating much but says she will try Ensure. Objective Exam Vital Signs Vital Signs Date Time Temp Pulse Resp B/P (MAP) Pulse Ox O2 Delivery O2 Flow Rate FiO2 05/22/23 12:53 76 05/22/23 12:04 36.6 16 114/65 (81) 94 Room Air 05/22/23 08:11 0.00 Capillary Refill : General Appearance: No Apparent Distress, WD/WN Respiratory: Lungs Clear, No Respiratory Distress Cardiovascular: Regular Rate, Rhythm, No Murmur Gastrointestinal: Normal Bowel Sounds, Soft Extremity: Normal Inspection, No Pedal Edema Neurologic/Psychiatric: Alert, Normal Mood/Affect Skin: Normal Color, Warm/Dry Results/Procedures Lab Laboratory Tests 05/22/23 05:27 Patient resulted labs reviewed. Assessment/Plan Assessment and Plan Assess & Plan/Chief Complaint Acute upper GI bleeding Duodenal ulcer with hemorrhage Acute blood loss anemia Chronic anticoagulation Paroxysmal AFib [place] Hgb 5.4, relatively stable Stop IV fluids Surgery following EGD 05/10 with duodenal ulcer bleed, s/p epinephrine IV PPI Hold Eliquis and Plavix Cardiology following s/p KCentra 05/10 s/p Infed 05/10 B12 injection x3 Folic acid IV Venofer Erythropoetin x2 Declines blood products due to being Druze Will do finger sticks for blood checks as able Debility PT/OT Ureteral stent present Nephrolithiasis UTI, resolved s/p Rocephin HTN HLD Hold home meds DVT prophylaxis: SCDs only due to GI bleed Diagnosis/Problems Diagnosis/Problems (1) ABLA (acute blood loss anemia) Status: Acute (2) GI bleed Status: Acute (3) Duodenal ulcer with hemorrhage Status: Acute (4) Paroxysmal atrial fibrillation Status: Chronic (5) Ureteral stent present Status: Chronic (6) UTI (urinary tract infection) Status: Acute (7) Refusal of blood transfusions as patient is Sabianism Status: Acute (8) Debility Status: Acute STEVE CHANEL MD May 22, 2023 14:32
[2023-05-22 16:59] VITALS: BP 128/70
[2023-05-22] MEDS: TAMSULOSIN 0.4 MG (FLOMAX) CAP PO SCH (18:17)
[2023-05-22 20:39] VITALS: BP 130/63
[2023-05-22] MEDS: FAMOTIDINE 20 MG TABLET PO SCH (20:47)
[2023-05-22 23:26] VITALS: BP 101/60
[2023-05-23 03:59] VITALS: BP 116/79
[2023-05-23 07:32] VITALS: BP 108/66
[2023-05-23] MEDS: FOLIC ACID 1 MG TAB PO SCH (09:36)
[2023-05-23] MEDS: PANTOPRAZOLE 40 MG TABLET PO SCH ×2 (09:36→20:24)
--- NOTE | 2023-05-23 10:36 | Progress Note - Hospitalist ---
Subjective HPI/CC On Admission Date Seen by Provider: May 23, 2023 Time Seen by Provider: 09:15 Subjective/Events-last exam She is feeling well. She has no compaints. She denies bleeding. Objective Exam Vital Signs Vital Signs Date Time Temp Pulse Resp B/P (MAP) Pulse Ox O2 Delivery O2 Flow Rate FiO2 05/23/23 07:32 36.6 78 18 108/66 (80) 91 Room Air 05/23/23 03:59 0.00 0.00 Capillary Refill : General Appearance: No Apparent Distress, WD/WN Respiratory: Lungs Clear, No Respiratory Distress Cardiovascular: Regular Rate, Rhythm, No Murmur Gastrointestinal: Normal Bowel Sounds, Soft Extremity: Normal Inspection, No Pedal Edema Neurologic/Psychiatric: Alert, Normal Mood/Affect Skin: Normal Color, Warm/Dry Results/Procedures Lab Patient resulted labs reviewed. Assessment/Plan Assessment and Plan Assess & Plan/Chief Complaint Acute upper GI bleeding Duodenal ulcer with hemorrhage Acute blood loss anemia Chronic anticoagulation Paroxysmal AFib Ep[place] Hgb relatively stable, continue to monitor EGD 05/10 with duodenal ulcer bleed, s/p epinephrine Continue PPI Continue folic acid Hold Eliquis and Plavix Cardiology following Received KCentra and Infed 05/10 B12 injection x3 IV Venofer Erythropoetin x2 Declines blood products due to being Episcopal Will do finger sticks for blood checks as able Debility PT/OT Ureteral stent present Nephrolithiasis UTI, resolved s/p Rocephin HTN HLD Hold home meds DVT prophylaxis: SCDs only due to GI bleed Diagnosis/Problems Diagnosis/Problems (1) ABLA (acute blood loss anemia) Status: Acute (2) GI bleed Status: Acute (3) Duodenal ulcer with hemorrhage Status: Acute (4) Paroxysmal atrial fibrillation Status: Chronic (5) Ureteral stent present Status: Chronic (6) UTI (urinary tract infection) Status: Acute (7) Refusal of blood transfusions as patient is Buddhist Status: Acute (8) Debility Status: Acute STEVE CHANEL MD May 23, 2023 10:36
--- NOTE | 2023-05-23 11:08 | Physical Therapy Daily Note ---
PT Daily Note-Current Subjective Patient agrees to PT. Pain Section J - Health Conditions 1. Rarely or not at all 2. Occasionally 3. Frequently 4. Almost constantly 8. Unable to answer Pain Effect on Sleep: 1 Pain Interference with Therapy: 1 Pain Interference w/Day-to-Day: 1 Transfers SCALE: Activities may be completed with or without assistive devices. 7-Vvxlqeofce-fyauorj completes the activity by him/herself with no assistance from a helper. 5-Set-up or Clean-up Assistance-helper sets up or cleans up; patient completes activity. [place] assists only prior to or following the activity. 4-Supervision or Touching Assistance-helper provides verbal cues and/or touching/steadying and/or contact guard assistance as patient completes activity. Assistance may be provided throughout the activity or intermittently. 3-Partial/Moderate Assistance-helper does LESS THAN HALF the effort. [place] lifts, holds or supports trunk or limbs, but provides less than half the effort. 2-Substantial/Maximal Assistance-helper does MORE THAN HALF the effort. [place] lifts or holds trunk or limbs and provides more than half the effort. 5-Islwlfagr-bqluko does ALL the effort. Patient does none of the effort to complete the activity. Or, the assistance of 2 or more helpers is required for the patient to complete the activity. If activity was not attempted, code reason: 7-Patient Refused. 9-Not Applicable-not attempted and the patient did not perform the activity before the current illness, exacerbation or injury. 10-Not Attempted due to Environmental Limitations-(lack of equipment, weather restraints, etc.). 88-Not Attempted due to Medical Conditions or Safety Concerns. Lying to Sitting/Side of Bed(Q: 6 Sit to Stand (QC): 5 Chair/Rpz-is-Ebslm Xfer(QC): 5 Weight Bearing Right Lower Extremity: Right Full Weight Bearing Left Lower Extremity: Left Full Weight Bearing Gait Training Distance: 200' Walk 10 feet (QC): 5 Walk 50 ft with 2 Turns(QC): 5 Walk 150 ft (QC): 5 Gait Assistive Device: FWW slow, steady gait sequence Exercises Seated Therapy Exercises: Ankle pumps, Long arc quads Seated Reps: 15 Assessment Patient tolerated treatment well and is up in recliner with needs met. Patient reports she will dismiss to home Friday the . PT Custodial Goals Custodial Goals PT Cellar Pumper Goals Time Frame: May 30, 2023 Roll Left & Right (QC): 6 Sit to Lying (QC): 6 Lying-Sitting on Side/Bed(QC): 6 Sit to Stand (QC): 6 Chair/Emw-js-Swkrm Xfer(QC): 6 Toilet Transfer (QC): 6 Car Transfer (QC): 6 Does the Patient Walk: Yes Walk 10 feet (QC): 6 Walk 50ft with 2 Turns (QC): 6 Walk 150 ft (QC): 6 Walking 10ft on Uneven Surface: 9 1 Step (curb) (QC): 9 4 Steps (QC): 9 12 Steps (QC): 9 Picking up an Object (QC): 6 Does the Pt use WC or Scooter?: No Wheel 50 feet with 2 turns (QC: 9 Type: N/A Wheel 150 feet: 9 Type: N/A PT Plan Treatment/Plan Treatment Plan: Continue Plan of Care Treatment Plan: Bed Mobility, Education, Functional Activity Kerry, Functional Strength, Group Therapy, Gait, Safety, Therapeutic Exercise, Transfers Treatment Duration: May 30, 2023 Frequency: 6 times per week Estimated Hrs Per Day: .25 hour per day Patient and/or Family Agrees t: Yes Time Time In: 1020 Time Out: 1035 DATE: May 23, 2023 Total Billed Treatment Time: 15 Total Billed Treatment 1 visit FA 15 min SHIREEN GOMEZ PT May 23, 2023 11:08
[2023-05-23] MEDS: SUCRALFATE 1 GM TABLET PO SCH ×3 (11:13→20:24)
[2023-05-23 11:45] VITALS: BP 126/61
--- NOTE | 2023-05-23 12:14 | Occupational Ther Daily Note ---
OT Current Status-Daily Note Subjective Pt seen in room, up in bed, agreeable to OT. No pain mentioned. Appearance Alert and cooperative. present and participating. ADL-Treatment Discussed ADL equipment pt has at home, including raised toilet, shower chair, wheelchair and walkers. Suggested that a hand held shower might make bathing easier, at least initially. has the ability to install one, if they desire. Pt seemed comfortable with the ADL assistance that she has available. Pt anticipates DC on Friday. Pt left up in bed, all needs met. Therapy Code Descriptions/Definitions Functional [place] Measure: 0=Not Assessed/NA 4=Minimal Assistance 1=Total Assistance 5=Supervision or Setup 2=Maximal Assistance 6=Modified [place] 3=Moderate Assistance 7=Complete IndependenceSCALE: Activities may be completed with or without assistive devices. 6-Yvvxouufvb-nmsasiu completes the activity by him/herself with no assistance from a helper. 5-Set-up or Clean-up Assistance-helper sets up or cleans up; patient completes activity. [place] assists only prior to or following the activity. 4-Supervision or Touching Assistance-helper provides verbal cues and/or touching/steadying and/or contact guard assistance as patient completes activity. Assistance may be provided throughout the activity or intermittently. 3-Partial/Moderate Assistance-helper does LESS THAN HALF the effort. [place] lifts, holds or supports trunk or limbs, but provides less than half the effort. 2-Substantial/Maximal Assistance-helper does MORE THAN HALF the effort. [place] lifts or holds trunk or limbs and provides more than half the effort. 2-Beuiiydvk-latpgv does ALL the effort. Patient does none of the effort to complete the activity. Or, the assistance of 2 or more helpers is required for the patient to complete the activity. If activity was not attempted, code reason: 7-Patient Refused. 9-Not Applicable-not attempted and the patient did not perform the activity before the current illness, exacerbation or injury. 10-Not Attempted due to Environmental Limitations-(lack of equipment, weather restraints, etc.). 88-Not Attempted due to Medical Conditions or Safety Concerns. OT Usp Goals Usp Goals Acute change in mental status: 0 Inattention: 1 Disorganized thinkin Altered level of consciousness: 1 Eating (QC): 6 Oral Hygiene (QC): 6 Toileting Hygiene (QC): 6 Shower/Bathe Self (QC): 6 Upper Body Dressing (QC): 6 Lower Body Dressing (QC): 6 On/Off Footwear (QC): 6 1=Demonstrate adherence to instructed precautions during ADL tasks. 2=Patient will verbalize/demonstrate understanding of assistive devices/modifications for ADL. 3=Patient will improve strength/tolerance for activity to enable patient to perform ADL's. OT Education/Plan Discharge Recommendations Plan/Recommendations: Continue POC Treatment Plan/Plan of Care Patient would benefit from OT for education, treatment and training to promote independence in ADL's, mobility, safety and/or upper extremity function for ADL's. Plan of Care: ADL Retraining, Concurrent Therapy, Functional Mobility, Group Exercise/Act as Ind, UE Funct Exercise/Act Treatment Duration: May 30, 2023 Frequency: At least 5 of 7 days/Wk (IRF) Estimated Hrs Per Day: .25 hour per day Agreement: Yes Rehab Potential: Good Time Start Time: 09:39 Stop Time: 10:00 DATE: May 23, 2023 Total Time Billed (hr/min): 21 Billed Treatment Time visit, 21 minutes ADL HUYEN ASHRAF OT May 23, 2023 12:14
[2023-05-23 16:04] VITALS: BP 139/72
[2023-05-23] MEDS: TAMSULOSIN 0.4 MG (FLOMAX) CAP PO SCH (18:27)
[2023-05-23 19:10] VITALS: BP 115/70
[2023-05-23] MEDS: FAMOTIDINE 20 MG TABLET PO SCH (20:24)
[2023-05-23 23:42] VITALS: BP 112/55
[2023-05-24 03:13] VITALS: BP 115/63
[2023-05-24] MEDS: SUCRALFATE 1 GM TABLET PO SCH ×4 (05:55→21:27)
[2023-05-24 07:30] VITALS: BP 114/54
--- NOTE | 2023-05-24 07:55 | Physical Therapy Daily Note ---
PT Daily Note-Current Subjective Pt. in bed, states she has been up to the bathroom already, agrees to ambulate. Pain Section J - Health Conditions 1. Rarely or not at all 2. Occasionally 3. Frequently 4. Almost constantly 8. Unable to answer Pain Effect on Sleep: 1 Pain Interference with Therapy: 1 Pain Interference w/Day-to-Day: 1 Mental Status Patient Orientation: Person, Place, Time, Situation Transfers SCALE: Activities may be completed with or without assistive devices. 1-Rgznmrsyfx-reigxfs completes the activity by him/herself with no assistance from a helper. 5-Set-up or Clean-up Assistance-helper sets up or cleans up; patient completes activity. [place] assists only prior to or following the activity. 4-Supervision or Touching Assistance-helper provides verbal cues and/or touching/steadying and/or contact guard assistance as patient completes activity. Assistance may be provided throughout the activity or intermittently. 3-Partial/Moderate Assistance-helper does LESS THAN HALF the effort. [place] lifts, holds or supports trunk or limbs, but provides less than half the effort. 2-Substantial/Maximal Assistance-helper does MORE THAN HALF the effort. [place] lifts or holds trunk or limbs and provides more than half the effort. 2-Kvjknnwkv-usakat does ALL the effort. Patient does none of the effort to complete the activity. Or, the assistance of 2 or more helpers is required for the patient to complete the activity. If activity was not attempted, code reason: 7-Patient Refused. 9-Not Applicable-not attempted and the patient did not perform the activity befo re the current illness, exacerbation or injury. 10-Not Attempted due to Environmental Limitations-(lack of equipment, weather re straints, etc.). 88-Not Attempted due to Medical Conditions or Safety Concerns. Roll Left & Right (QC): 6 Sit to Stand (QC): 6 Weight Bearing Right Lower Extremity: Right Full Weight Bearing Left Lower Extremity: Left Full Weight Bearing Gait Training Does the Patient Walk?: Yes Distance: 225 ft Walk 150 ft (QC): 6 Gait Persons Needed: 1 Gait Assistive Device: FWW Exercises Seated Therapy Exercises: Ankle pumps, Long arc quads, Hip flexion, Hip abd/add Seated Reps: 20 Treatments gait, LE exercises Assessment Current Status: Good Progress Pt. is steady with ambulation and (I) with all transfers. Pt. states she is likely to d/c on Friday. Pt. up in chair with call light and all needs met. PT Group Home Goals Bit Grinder Goals PT Bit Grinder Goals Time Frame: May 30, 2023 Roll Left & Right (QC): 6 Sit to Lying (QC): 6 Lying-Sitting on Side/Bed(QC): 6 Sit to Stand (QC): 6 Chair/Zkd-tp-Uprur Xfer(QC): 6 Toilet Transfer (QC): 6 Car Transfer (QC): 6 Does the Patient Walk: Yes Walk 10 feet (QC): 6 Walk 50ft with 2 Turns (QC): 6 Walk 150 ft (QC): 6 Walking 10ft on Uneven Surface: 9 1 Step (curb) (QC): 9 4 Steps (QC): 9 12 Steps (QC): 9 Picking up an Object (QC): 6 Does the Pt use WC or Scooter?: No Wheel 50 feet with 2 turns (QC: 9 Type: N/A Wheel 150 feet: 9 Type: N/A PT Plan Treatment/Plan Treatment Plan: Continue Plan of Care Treatment Plan: Bed Mobility, Education, Functional Activity Kerry, Functional Strength, Group Therapy, Gait, Safety, Therapeutic Exercise, Transfers Treatment Duration: May 30, 2023 Frequency: 6 times per week Estimated Hrs Per Day: .25 hour per day Patient and/or Family Agrees t: Yes Time Time In: 0738 Time Out: 0754 DATE: May 24, 2023 Total Billed Treatment Time: 16 Total Billed Treatment 1, GT 10', (Ex 5') LOLA BENNETT PT May 24, 2023 07:55
[2023-05-24] MEDS: PANTOPRAZOLE 40 MG TABLET PO SCH ×2 (08:22→21:27)
[2023-05-24] MEDS: FOLIC ACID 1 MG TAB PO SCH (08:22)
[2023-05-24 11:40] VITALS: BP 126/57
[2023-05-24 15:49] VITALS: BP 153/66
[2023-05-24] MEDS: TAMSULOSIN 0.4 MG (FLOMAX) CAP PO SCH (17:42)
[2023-05-24 19:38] VITALS: BP 129/61
[2023-05-24] MEDS: FAMOTIDINE 20 MG TABLET PO SCH (21:27)
[2023-05-24 23:33] VITALS: BP 122/61
[2023-05-25 04:49] VITALS: BP 128/56
[2023-05-25] MEDS: SUCRALFATE 1 GM TABLET PO SCH ×4 (05:56→20:13)
[2023-05-25 06:21] LABS: HEMOGLOBIN 6.1 g/dL (11.5-16.0)
[2023-05-25 07:30] VITALS: BP 127/66
[2023-05-25] MEDS: PANTOPRAZOLE 40 MG TABLET PO SCH ×2 (08:30→20:13)
[2023-05-25] MEDS: FOLIC ACID 1 MG TAB PO SCH (08:31)
[2023-05-25 11:30] VITALS: BP 135/64
[2023-05-25 16:10] VITALS: BP 123/73
[2023-05-25] MEDS: TAMSULOSIN 0.4 MG (FLOMAX) CAP PO SCH (17:35)
[2023-05-25 19:42] VITALS: BP 106/44
[2023-05-25] MEDS: FAMOTIDINE 20 MG TABLET PO SCH (20:13)
[2023-05-25 23:31] VITALS: BP 101/42
[2023-05-26 03:40] VITALS: BP 123/56
[2023-05-26] MEDS: SUCRALFATE 1 GM TABLET PO SCH ×2 (05:41→09:18)
[2023-05-26 07:13] VITALS: BP 123/67
[2023-05-26] MEDS: FOLIC ACID 1 MG TAB PO SCH (09:18)
[2023-05-26] MEDS: PANTOPRAZOLE 40 MG TABLET PO SCH (09:18)
[2023-05-26] MEDS ORDERED: FAMO20TA5 PO (09:39)
[2023-05-26] MEDS ORDERED: PANT40TA52 PO (09:39)
[2023-05-26] MEDS ORDERED: SUCR1TAB PO (09:39)
[2023-05-26] MEDS ORDERED: FOLI1TAB33 PO (09:39)
--- NOTE | 2023-05-26 09:43 | D/C HH Face to Face Order ---
D/C Face to Face Orders Instructions for Patient Via [facility], Patient Instructions/FollowUp: Please continue to take your medications as written. Please follow up with Dr Be on to follow up this hospital stay and follow up with [facility]. Physician to follow Patient: Dr Be Discharge Diet for Home: No Restrictions Patient Data-Allergies,Ht & Wt Patient Allergies: Coded Allergies: codeine (Verified Allergy, Unknown, 10/31/17) Height (Feet): 5 Height (Inches): 4.00 Weight (Pounds): 140 Home Health Need/Face to Face Date of Face to Face: May 26, 2023 Clinical Findings: Generalized weakness and fatigue I have seen Pt erho-al-zfab: Yes Discharged To: Home Diagnosis/Conditions: GI Bleed, Anemia Patient is Homebound due to: Shortness of breath/distress Homebound Status Due to the above stated illness, injury or surgical procedure (medical condition or diagnosis) and associated clinical findings, the patient is homebound because of his/her inability to leave home except with aid of a supportive device and/or person AND leaving the home requires a considerable and taxing effort or is medically contraindicated. Pt req the following assistanc: Aid of another person Home Health Nursing Orders Home Health Services Order: Nursing Services, Control Clerk Auditing-Evaluate & Treat, Physical Therapy-Evaluate & Treat Therapy Orders Therapy Orders: OT (must have SN or PT order), Physical Therapy Therapy Specific Orders: Eval assistive deivces, Teach enviro modifications/safety, Gait training, Increase strength/endurance Certify Stmt I certify that this patient is under my care and that I, a nurse practitioner or a physician; a assistant baseball coach working with me, had a face to face encounter that - meets the physician face to face encounter requirements with this patient as dated. LYLE KNOTT MD May 26, 2023 09:42
--- NOTE | 2023-05-26 09:52 | Therapy Team Discharge Summary ---
Therapy Discharge Summary Discharge Recommendations Date of Discharge Physical Therapy Patient seen by skilled PT to address functional strength and mobility to ensure safe return to home at independent LOF. Patient has progressed from SBA/CGA to independent LOF upon dismissal. Patient highly motivated with progress and is ready to dismiss to home with spouse. Goals addressed and attained. Roll Left to Right (QC): 6 Sit to Lying (QC): 6 Lying to Sitting/Side of Bed(Q: 6 Sit to Stand (QC): 6 Chair/Bme-fk-Bkvit Xfer(QC): 6 Toilet Transfer (QC): 6 Car Transfer (QC): 6 Does the Patient Walk: Yes Mode of Locomotion: Walk Anticipated Mode of Locomotion: Walk Walk 10 feet (QC): 6 Walk 50 ft with 2 Turns(QC): 6 Walk 150 ft (QC): 6 Walking 10ft on uneven surface: 6 Gait Assistive Device: FWW Does the Pt Use a Wheelchair: No Wheel 50 ft with 2 turns (QC): 9 Wheel 150 ft (QC): 9 Type of Wheelchair: N/A 1 Step (curb) (QC): 9 4 Steps (QC): 9 12 Steps (QC): 9 Walking Assistive Device: Walker Balance Sitting Static: Normal Balance Sitting Dynamic: Normal Balance-Standing Static: Normal Picking up an Object (QC): 6 Occupational Therapy Decreased Activ Tolerance, Decreased Safety Aware, Impaired Cognition, Impaired Coordination, Impaired Funct Balance, Impaired Self-Care Skills, Restricted Funct UE ROM Eating (QC): 6 Oral Hygiene (QC): 6 (sitting) Shower/Bathe Self (QC): 7 Upper Body Dressing (QC): 5 Lower Body Dressing (QC): 5 On/Off Footwear (QC): 5 Toileting Hygiene (QC): 5 (Kelley HARLEY'[place]) PT Steward/Stewardess Night Goals Steward/Stewardess Night Goals PT Steward/Stewardess Night Goals Time Frame: May 30, 2023 Roll Left to Right (QC): 6 Sit to Lying (QC): 6 Lying-Sitting on Side/Bed(QC): 6 Sit to Stand (QC): 6 Chair/Dgy-oq-Lzvlx Xfer(QC): 6 Toilet/Commode Transfer (QC): 6 Car Transfer (QC): 6 Does the Patient Walk: Yes Walk 10 feet (QC): 6 Walk 10ft-Uneven Surface(QC): 9 Walk 50ft with 2 Turns (QC): 6 Walk 150 ft (QC): 6 Does the Pt use WC or Scooter?: No Wheel 50 feet with 2 turns (QC: 9 Type: N/A Wheel 150 feet: 9 Type: N/A 1 Step (curb) (QC): 9 4 Steps (QC): 9 12 Steps (QC): 9 Picking up an Object (QC): 6 OT Steward/Stewardess Night Goals Steward/Stewardess Night Goals Acute change in mental status: 0 Inattention: 1 Disorganized thinkin Altered level of consciousness: 1 Eating (QC): 6 Oral Hygiene (QC): 6 Toileting Hygiene (QC): 6 Shower/Bathe Self (QC): 6 Upper Body Dressing (QC): 6 Lower Body Dressing (QC): 6 On/Off Footwear (QC): 6 1=Demonstrate adherence to instructed precautions during ADL tasks. 2=Patient will verbalize/demonstrate understanding of assistive devices/modifications for ADL. 3=Patient will improve strength/tolerance for activity to enable patient to perform ADL's. SHIREEN GOMEZ PT May 26, 2023 09:52
--- NOTE | 2023-05-26 09:52 | Discharge Summary ---
Diagnosis/Chief Complaint Date of Admission May 16, 2023 at 14:32 Date of Discharge Discharge Date: May 26, 2023 Primary [facility] Dion eB DO Discharge Diagnosis (1) ABLA (acute blood loss anemia) Status: Acute (2) GI bleed Status: Acute (3) Duodenal ulcer with hemorrhage Status: Acute (4) Paroxysmal atrial fibrillation Status: Chronic (5) Ureteral stent present Status: Chronic (6) UTI (urinary tract infection) Status: Acute (7) Refusal of blood transfusions as patient is [place] Status: Acute (8) Debility Status: Acute Discharge Summary Discharge Physical Exam Allergies: Coded Allergies: codeine (Verified Allergy, Unknown, 10/31/17) Vitals & I&Os Vital Signs Date Time Temp Pulse Resp B/P (MAP) Pulse Ox O2 Delivery O2 Flow Rate FiO2 05/26/23 07:35 74 05/26/23 07:13 36.7 16 123/67 (85) 94 Room Air 05/26/23 03:40 0.00 0.00 Hospital Course Labs (last 24 hrs) Patient resulted labs reviewed. Discharge Home Medications: Active Scripts Active Famotidine 20 Mg Tablet 20 Mg PO HS Folic Acid 1 Mg Tablet 1 Mg PO DAILY Pantoprazole Sodium 40 Mg Tablet.dr 40 Mg PO BID Sucralfate 1 Gram Tablet 1 Gm PO ACHS Reported Losartan Potassium 25 Mg Tablet 25 Mg PO DAILY Flomax (Tamsulosin HCl) 0.4 Mg Cap 0.4 Mg PO DAILY Eliquis (Apixaban) 5 Mg Tablet 5 Mg PO BID Clopidogrel (Clopidogrel Bisulfate) 75 Mg Tablet 75 Mg PO BID Valacyclovir (Valacyclovir HCl) 1,000 Mg Tablet 1,000 Mg PO BID FILLED 05-09-2023 #16/8 DAY SUPPLY Metoprolol Succinate 50 Mg Tab.er.24h 50 Mg PO BID HOLD FOR SBP LESS THAN 110 AND/OR HR LESS THAN 60 Atorvastatin Calcium 40 Mg Tablet 40 Mg PO HS Instructions to patient/family Please see electronic discharge instructions given to patient. LYLE KNOTT MD May 26, 2023 09:52
[2023-05-26 11:22] VITALS: BP 116/58
[2023-05-26 12:25] VITALS: BP 116/58
== END 2023-05-26 12:20 | disposition home health service (06) | DRG 378 ==
LOC: 4TH 14:32
PROVIDERS: ADMIT Family Medicine; ATTEND Internal Medicine
DX: K26.0 Acute duodenal ulcer with hemorrhage (principal); D62 Acute posthemorrhagic anemia; N39.0 Urinary tract infection, site not specified; I42.9 Cardiomyopathy, unspecified; I48.0 Paroxysmal atrial fibrillation; R53.81 Other malaise; Z79.01 Long term (current) use of anticoagulants; N20.0 Calculus of kidney; I10 Essential (primary) hypertension; E78.5 Hyperlipidemia, unspecified; Z66 Do not resuscitate; Z51.5 Encounter for palliative care; E78.00 Pure hypercholesterolemia, unspecified; Z79.82 Long term (current) use of aspirin; Z79.899 Other long term (current) drug therapy
CPT/HCPCS: 36415; 85014; 85018; 94760

== ENCOUNTER → 2023-06-02 | Outpatient (CLI) | payer MEDICARE ==
[~2023-06-02] MED LIST changes: +FAMO20TA5 PO; +FOLI1TAB33 PO; +PANT40TA52 PO; +SUCR1TAB PO
[2023-06-02 10:52] LABS: HEMOGLOBIN 8.8 g/dL (11.5-16.0)
== END ==
LOC: LAB 10:28
PROVIDERS: ATTEND Family Medicine
DX: D64.9 Anemia, unspecified (principal)
CPT/HCPCS: 36415; 85027

== ENCOUNTER → 2023-06-23 | Outpatient (CLI) | payer MEDICARE ==
[2023-06-23 08:47] LABS: HEMATOCRIT 36 % (35-52); MEAN CORPUSCULAR HEMOGLOBIN 27 pg (25-34); MEAN CORPUSCULAR HGB CONC 31 g/dL (32-36); MEAN CORPUSCULAR VOLUME 89 fL (80-99); MEAN PLATELET VOLUME 9.6 fL (9.0-12.2); PLATELET COUNT 285 10^3/uL (130-400); WHITE BLOOD COUNT 8.2 10^3/uL (4.3-11.0)
[2023-06-23 09:07] LABS: ALBUMIN 3.8 GM/DL (3.2-4.5); BILIRUBIN,TOTAL 0.4 MG/DL (0.1-1.0); CALCIUM 8.9 MG/DL (8.5-10.1); CREATININE SERUM 0.61 MG/DL (0.60-1.30); POTASSIUM 3.1 MMOL/L (3.6-5.0); TOTAL PROTEIN 6.5 GM/DL (6.4-8.2)
== END ==
LOC: LAB 08:20
PROVIDERS: ATTEND Family Medicine
DX: I10 Essential (primary) hypertension (principal); D64.9 Anemia, unspecified; E78.5 Hyperlipidemia, unspecified
CPT/HCPCS: 36415; 80053; 85027